=== PATIENT | female | born 1945 | race Hispanic/Latino ===

== ENCOUNTER 2016-06-13 12:51 | Emergency (ER) | payer MEDICARE, MEDICAID ==
--- NOTE | 2016-06-13 13:20 | C.PDOC ---
History Of Present Illness 70 y/o female presents to the ED complaining of anxiety and subjective tremors. She reports evaluated overnight at [facility] [place] for anxiety and states she had a Xanax at 10 am when she was discharged but no other medication since then. Patient notes that she lives at home with a home health attendant and usually takes Xanax 1 mg TID. She admits to inconsistent follow up with Dr. Topher Littlejohn. Patient also notes some loose stool for 20 years. Denies chest pain, shortness of breath, fever, abdominal pain, or other complaints. Time Seen by Provider: 06/13/16 13:08 Chief Complaint (Nursing): Anxiety History Per: Patient Onset/Duration Of Symptoms: Days, Persistent Current Symptoms Are (Timing): Still Present Suicide/Self Injury Attempted (Context): None Associated Symptoms: Anxiety Involuntary Hold By: None Recent travel outside of the [place]: No Past Medical History Reviewed: Historical Data, Nursing Documentation, Vital Signs Vital Signs: Last Vital Signs Temp 98 F 06/13/16 13:01 Pulse 95 H 06/13/16 13:01 Resp 16 06/13/16 13:01 BP 154/85 H 06/13/16 13:01 Pulse Ox 98 06/13/16 14:43 - Medical History PMH: Anxiety, HTN Surgical History: No Surg Hx Family History: States: Unknown Family Hx - Social History Hx Tobacco Use: No Hx Alcohol Use: No Hx Substance Use: No - Immunization History Hx Tetanus Toxoid Vaccination: No Hx Influenza Vaccination: No Hx Pneumococcal Vaccination: No Review Of Systems Except As Marked, All Systems Reviewed And Found Negative. Constitutional: Negative for: Fever Cardiovascular: Negative for: Chest Pain Respiratory: Negative for: Shortness of Breath Gastrointestinal: Positive for: Diarrhea. Negative for: Abdominal Pain Neurological: Positive for: Other (tremors) Psych: Positive for: Anxiety Physical Exam - Physical Exam Appears: Non-toxic, No Acute Distress, Other (anxious) Skin: Normal Color, Warm, Dry Head: Atraumatic, Normacephalic Eye(s): bilateral: Normal Inspection, PERRL Neck: Normal ROM Chest: Symmetrical Cardiovascular: Rhythm Regular Respiratory: Normal Breath Sounds, No Rales, No Rhonchi, No Wheezing Gastrointestinal/Abdominal: Normal Exam, Soft, No Tenderness, Other (obese; patel catheter in place) Back: Normal Inspection, No CVA Tenderness Extremity: Normal ROM Neurological/Psych: Oriented x3, Normal Speech, Normal Cognition ED Course And Treatment - Laboratory Results Result Diagrams: 06/13/16 13:54 06/13/16 13:54 Lab Interpretation: Normal (trop neg. MIld low K+) ECG: Interpreted By Me ECG Rhythm: Sinus Rhythm ECG Interpretation: Normal Rate From EC (bpm) O2 Sat by Pulse Oximetry: 98 (ra) Pulse Ox Interpretation: Normal - Radiology CXR: Interpreted by Me CXR Interpretation: Yes: No Acute Disease - Other Rad abd x 2 X-Ray: Interpreted by Me (+ increased stool/gas, no obst/FA) Progress Note: xanax PO Reevaluation Time: 14:40 Reassessment Condition: Improved - Physician Consult Information Outcome Of Conversation: 1345: d/w Dr. Topher Lopez- suspects inconsistent Xanax dosing, and asks to f/u in office on Thursday. 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 complete w/u @ [facility] [place] last night was neg too. consider changing xanax to Klonopin @ next visit. Medical Decision Making Medical Decision Making: anxiety, irritable bowel, poorly controlled DM lives alone, increased anxiety- has [employer] Plan: * EKG * X-Ray, Abdomen * Blood Work * Urinalysis * Xanax PO * Human Insulin Disposition Doctor Will See Patient In The: Office Counseled Patient/Family Regarding: Studies Performed, Diagnosis - Disposition Referrals: Topher Lopze MD [Staff Provider] - Disposition: HOME/ ROUTINE Disposition Time: 14:42 Condition: GOOD Additional Instructions: Follow-up w Dr. Lopez on Thursday- call for an appointment. Take your Xanax 1 mg THREE times a day as scheduled BRAT diet for your diarrhea; bananas, white rice, apples, and small amounts of bread. Instructions: Chronic Diarrhea (ED), Anxiety (ED) - Clinical Impression Clinical Impression: Anxiety, Diarrhea - Scribe Statement The provider has reviewed the documentation as recorded by the Scribe ([employer]) Provider Attestation: All medical record entries made by the Scribe were at my direction and personally dictated by me. I have reviewed the chart and agree that the record accurately reflects my personal performance of the history, physical exam, medical decision making, and the department course for this patient. I have also personally directed, reviewed, and agree with the discharge instructions and disposition.
[2016-06-13 14:00] LABS: BASO # 0.1 K/uL (0.0-0.2); BASO % 0.7 % (0.0-2.0); EOS % 0.3 % (0.0-4.0); HEMATOCRIT 42.4 % (34.0-47.0); LYMPH # 1.1 K/uL (1.0-4.3); LYMPH % 13.8 % (20.0-40.0); MEAN CELL VOLUME 90.3 fL (81.0-99.0); MEAN CORPUSCULAR HEMOGLOBIN 30.5 pg (27.0-31.0); MEAN CORPUSCULAR HGB CONC 33.8 g/dL (33.0-37.0); MEAN PLATELET VOLUME 8.1 fL (7.2-11.7); MONO # 0.6 K/uL (0.0-0.8); MONO % 7.4 % (0.0-10.0); NRBC % 0.1 % (0.0-2.0); RED CELL DISTRIBUTION WIDTH 12.6 % (11.5-14.5); WHITE BLOOD COUNT 8.1 K/uL (4.8-10.8)
[2016-06-13 14:08] LABS: RBC URINE 16 /hpf (0-3); URINE BACTERIA RARE (<OCC); URINE BILIRUBIN NEGATIVE (NEGATIVE); URINE BLOOD 1+ (NEGATIVE); URINE COLOR Straw (YELLOW); URINE GLUCOSE (UA) 3+ mg/dL (Normal); URINE KETONE NEGATIVE (NEGATIVE); URINE LEUKOCYTE ESTERASE 1+ Leu/uL (Negative); URINE PROTEIN 2+ mg/dL (NEGATIVE); URINE UROBILINOGEN NORMAL mg/dL (0.2-1.0); WBC URINE 17 /hpf (0-5)
[2016-06-13 14:11] LABS: CHLORIDE 95 mmol/L (98-107); SODIUM 136 mmol/L (132-148)
[2016-06-13 14:13] LABS: ALB/GLOB RATIO 0.9 (1.0-2.1); AST/SGOT 18 U/L (14-36); BILIRUBIN,TOTAL 0.3 mg/dL (0.2-1.3); CARBON DIOXIDE 27 mmol/L (22-30); GFR AFRICAN-AMERICAN > 60; TOTAL PROTEIN 7.3 g/dL (6.3-8.3)
[2016-06-13 14:14] LABS: ALKALINE PHOSPHATASE 90 U/L (38-126); ALT/SGPT 9 U/L (9-52); BLOOD UREA NITROGEN 7 mg/dL (7-17); CALCIUM 8.6 mg/dl (8.6-10.4); GLUCOSE,RANDOM 357 mg/dL (65-105)
[2016-06-13] MEDS ORDERED: (Novolin R) Insulin Human Regular 100 units/ml vial IV STA (14:39)
[2016-06-13] MEDS ORDERED: (Novolin R) Insulin Human Regular 100 units/ml vial ONE (14:49)
--- NOTE | 2016-06-13 16:57 | RAD ---
PROCEDURE: Radiographs of the chest and abdomen (obstructive series) HISTORY: crampy abd discomfort x 2 days COMPARISON: None available. FINDINGS: Examination limited by habitus. CHEST: Heart size appears top normal. No focal consolidation, significant pleural effusion, or definite pneumothorax identified.Please note that chest x-ray has limited sensitivity for the detection of pulmonary masses. ABDOMEN AND PELVIS: Right upper quadrant surgical clips. Nonspecific nonobstructive bowel gas pattern. No definite free air. Osseous demineralization. Degenerative changes. IMPRESSION: Right upper quadrant surgical clips.
[2016-06-13 17:44] VITALS: BP 172/82; PULSE 88; RESP 18; TEMP 97.1; O2SAT 100
--- NOTE | 2016-06-20 14:19 | CARD ---
APPROVED REPORT EKG Measurement Heart [id number] <Conclusion> Normal sinus rhythm Prolonged QT Abnormal ECG
== END 2016-06-13 17:42 | disposition home or self-care (01) ==
LOC: C.ER 12:51
DX: F41.9 Anxiety disorder, unspecified (principal); R19.7 Diarrhea, unspecified; I10 Essential (primary) hypertension

== ENCOUNTER 2016-09-16 10:35 | Observation (INO) | payer MEDICARE, MEDICAID ==
--- NOTE | 2016-09-16 11:14 | C.PDOC ---
History Of Present Illness 70-year-old female, PMHx includes Anxiety, Depression, Hypertension, and Hypercholesterolemia, presents to the emergency department with complaints of fall. patient states she was walking prior to arrival, when she had a mechanical fall, causing her to gall backward, hitting her head, Patient denies any loss of consciousness. Currently complaining of pain to right knee and right hip. States she is supposed to be on the water pill, but only takes half dose. Secondary complaint is urinary frequency, that is associated with foul- smelling urine. Denies chest pain or shortness of breath. No other complaints at this time, PMD Milan Armstrong MD. - HPI Time Seen by Provider: 09/16/16 10:55 Chief Complaint (Nursing): Trauma History Per: Patient History/Exam Limitations: no limitations Injury Occurred (Timing): Just Before Arrival Past Medical History Reviewed: Historical Data, Nursing Documentation, Vital Signs Vital Signs: Last Vital Signs Temp 98.2 F 09/16/16 10:50 Pulse 64 09/16/16 15:01 Resp 20 09/16/16 15:01 BP 169/67 H 09/16/16 15:01 Pulse Ox 100 09/16/16 15:01 - Medical History PMH: Anxiety, Depression, HTN, Hypercholesterolemia Family History: States: No Known Family Hx - Social History Hx Tobacco Use: No Hx Alcohol Use: No Hx Substance Use: No - Immunization History Hx Tetanus Toxoid Vaccination: No Hx Influenza Vaccination: No Hx Pneumococcal Vaccination: No Review Of Systems Except As Marked, All Systems Reviewed And Found Negative. Constitutional: Negative for: Fever, Chills Cardiovascular: Negative for: Chest Pain Respiratory: Negative for: Shortness of Breath Gastrointestinal: Negative for: Nausea, Vomiting Genitourinary: Positive for: Frequency. Negative for: Incontinence, Hematuria Musculoskeletal: Positive for: Leg Pain Neurological: Positive for: Headache. Negative for: Weakness, Numbness Physical Exam - Physical Exam Appears: Non-toxic, No Acute Distress, Other (Obese) Skin: Warm, Dry, No Rash Head: Atraumatic, Normacephalic Eye(s): bilateral: Normal Inspection, PERRL, EOMI Nose: Normal Oral Mucosa: Moist Lips: Normal Appearing Neck: Normal ROM Cardiovascular: Rhythm Regular, No Murmur Respiratory: Normal Breath Sounds, No Accessory Muscle Use Gastrointestinal/Abdominal: Soft, No Tenderness Extremity: Pedal Edema (B/L lower extremities. Non-pitting), Other (Tenderness to right knee. Right hip: FROM. ) Pulses: Left Dorsalis Pedis: Normal, Right Dorsalis Pedis: Normal ED Course And Treatment - Laboratory Results Result Diagrams: 09/16/16 12:19 09/16/16 13:05 O2 Sat by Pulse Oximetry: 96 - Other Rad XR HIP X-Ray: Viewed By Me, Read By Radiologist Interpretation: Accession No. : [id number]. Patient Name / ID : LUIZ WARNER / [id number]. Exam Date : 09/16/2016 11:15:00 ( Approved ). Study Comment : Sex / Age : F / 70Y. Creator : VANNESSA CAMARILLO MD. Dictator : VANNESSA CAMARILLO MD. Freelance Operator : Plastic Installer : VANNESSA CAMARILLO MD. Approver2 : Report Date : 12:20:06. My Comment : . PROCEDURE: Radiographs of the pelvis and right hip. HISTORY: fall r/o fx. COMPARISON: None. TECHNIQUE: Frontal projection of the pelvis and frog lateral projection of the right hip joint were obtained. FINDINGS: The pelvic ring is intact. There is no acute displaced fracture or bone destruction. There is diffuse bone demineralization. There is mild degenerative osteoarthrosis in the hip joints and sacroiliac joints. IMPRESSION: No acute displaced fracture or dislocation. Please note occult fractures cannot be excluded on plain radiographs. If there is a persistent clinical concern, an MRI of the hip may be performed for further evaluation. XR KNEE X-Ray: Viewed By Me, Read By Radiologist Interpretation: Accession No. : [id number]. Patient Name / ID : LUIZ WARNER / [id number]. Exam Date : 09/16/2016 11:14:40 ( Approved ). Study Comment : Sex / Age : F / 70Y. Creator : VANNESSA CAMARILLO MD. Dictator : VANNESSA CAMARILLO MD. Freelance Operator : Plastic Installer : VANNESSA CAMARILLO MD. Approver2 : Report Date : 11:52:03. My Comment : . PROCEDURE: Right Knee Radiographs. HISTORY: fall r/o fx. COMPARISON: None. FINDINGS: BONES: There is diffuse bone demineralization.There is no acute displaced fracture or bone destruction. Bone alignment is normal. JOINTS: There is severe tricompartmental degenerative osteoarthrosis with reduced joint spaces, chondrocalcinosis and marginal osteophytes, worse in the medial compartment. JOINT EFFUSION: There is a small suprapatellar joint effusion. OTHER FINDINGS: There atherosclerotic vascular calcifications. IMPRESSION: No acute displaced fracture or dislocation.Please note occult fractures cannot be excluded on plain radiographs. If there is a persistent clinical concern, an MRI of the hip may be performed for further evaluation. XR L SPINE X-Ray: Viewed By Me, Read By Radiologist Interpretation: Accession No. : [id number]. Patient Name / ID : LUIZ WARNER / [id number]. Exam Date : 09/16/2016 11:14:13 ( Approved ). Study Comment : Sex / Age : F / 70Y. Creator : VANNESSA CAMARILLO MD. Dictator : VANNESSA CAMARILLO MD. Freelance Operator : Plastic Installer : VANNESSA CAMARILLO MD. Approver2 : Report Date : 12:23:32. My Comment : . PROCEDURE: Radiographs of the Lumbar Spine. HISTORY: fall r/o fx. COMPARISON: No prior. FINDINGS: BONES: There is mild dextroscoliosis in the lumbar spine. There is normal alignment of the lumbar vertebral bodies. Lumbar lordosis is maintained. There is diffuse bone demineralization. There is no acute fracture or spondylolisthesis. DISC SPACES: There is multilevel degenerative disc disease with anterior osteophytes , reduced disc heights and multilevel facet arthropathy, worse at L5-S1. . OTHER FINDINGS: Surgical clips in the right upper quadrant are related to prior cholecystectomy. There are no pathologic soft tissue calcifications joints. There is mild degenerative osteoarthrosis in both sacroiliac. IMPRESSION: No acute fracture or spondylolisthesis. Multilevel degenerative disc disease, worse at L5-S1. - CT Scan/US CT HEAD Other Rad Studies (CT/US): Read By Radiologist, Radiology Report Reviewed CT/US Interpretation: Accession No. : [id number]. Patient Name / ID : LUIZ WARNER / [id number]. Exam Date : 09/16/2016 11:42:21 ( Approved ). Study Comment : Sex / Age : F / 70Y. Creator : VANNESSA CAMARILLO MD. Dictator : VANNESSA CAMARILLO MD. Freelance Operator : Plastic Installer : VANNESSA CAMARILLO MD. Approver2 : Report Date : 09/16/2016 12:11:12. My Comment : . PROCEDURE: CT HEAD WITHOUT CONTRAST. HISTORY: r/o CVA. COMPARISON: None available. TECHNIQUE: Axial computed tomography images were obtained through the head/brain without intravenous contrast. Radiation dose: Total exam DLP = 944.43 MGy-cm. This CT exam was performed using one or more of the following dose reduction techniques: Automated exposure control, adjustment of the mA and/or kV according to patient size, and/or use of iterative reconstruction technique. FINDINGS: HEMORRHAGE: No intracranial hemorrhage. BRAIN: There are severe chronic microangiopathic changes. There are old lacunar infarctions in the amado radiata. VENTRICLES: There is moderate age-related global parenchymal volume loss and proportionate enlargement of the ventricles and cortical sulci. CALVARIUM: There is no calvarial fracture or extracranial soft tissue swelling. PARANASAL SINUSES: Predominantly clear. MASTOID AIR CELLS: Predominantly clear. OTHER FINDINGS: None. IMPRESSION: No acute intracranial abnormality. If there is a persistent focal neurologic deficit and an ongoing clinical concern for acute infarction, an MRI of the brain without intravenous contrast would be a more sensitive modality for evaluation of hyperacute/acute ischemic infarction. Severe chronic microangiopathic changes and moderate age-related global parenchymal volume loss. Old lacunar infarctions in bilateral amado radiata. Medical Decision Making Medical Decision Making: Impression 70y/o F, comes in s/p fall w/ pain to back of head and urinary frequency w/ foul odor Diff Dx (includes but not limited to) Intracranial hemorrhage vs Fracture, UTI Plan: * CT Head * BMP, Mag * CBC * X-Ray: R Knee * X-Ray: Hip and LS Spine * Urinalysis * Reassess and Disposition Patient CT negative for ICH. UA positive for UTI and treated with Macrobid. Hypokalemia treated with PO potassium. Patient's xrays are negative for fx. Pain controlled. Patient was evaluated by PT with her walker and was not able to walk because knees. Discussed case with Dr. Gresham who will place her on Medicine under his service. Disposition Counseled Patient/Family Regarding: Studies Performed, Diagnosis - Disposition Disposition: HOSPITALIZED Disposition Time: 15:26 Condition: FAIR - POA Present On Arrival: None - Clinical Impression Clinical Impression: Head injury, Frequent falls, UTI (urinary tract infection), Hypokalemia - Scribe Statement The provider has reviewed the documentation as recorded by the Scribe (Maurice Cheung)
--- NOTE | 2016-09-16 11:53 | RAD ---
PROCEDURE: Right Knee Radiographs. HISTORY: fall r/o fx COMPARISON: None. FINDINGS: BONES: There is diffuse bone demineralization.There is no acute displaced fracture or bone destruction. Bone alignment is normal. JOINTS: There is severe tricompartmental degenerative osteoarthrosis with reduced joint spaces, chondrocalcinosis and marginal osteophytes, worse in the medial compartment. JOINT EFFUSION: There is a small suprapatellar joint effusion. OTHER FINDINGS: There atherosclerotic vascular calcifications. IMPRESSION: No acute displaced fracture or dislocation.Please note occult fractures cannot be excluded on plain radiographs. If there is a persistent clinical concern, an MRI of the hip may be performed for further evaluation.
--- NOTE | 2016-09-16 12:12 | CT ---
PROCEDURE: CT HEAD WITHOUT CONTRAST. HISTORY: r/o CVA COMPARISON: None available. TECHNIQUE: Axial computed tomography images were obtained through the head/brain without intravenous contrast. Radiation dose: Total exam DLP = 944.43 MGy-cm. This CT exam was performed using one or more of the following dose reduction techniques: Automated exposure control, adjustment of the mA and/or kV according to patient size, and/or use of iterative reconstruction technique. FINDINGS: HEMORRHAGE: No intracranial hemorrhage. BRAIN: There are severe chronic microangiopathic changes. There are old lacunar infarctions in the amado radiata. VENTRICLES: There is moderate age-related global parenchymal volume loss and proportionate enlargement of the ventricles and cortical sulci. CALVARIUM: There is no calvarial fracture or extracranial soft tissue swelling. PARANASAL SINUSES: Predominantly clear. MASTOID AIR CELLS: Predominantly clear. OTHER FINDINGS: None. IMPRESSION: No acute intracranial abnormality. If there is a persistent focal neurologic deficit and an ongoing clinical concern for acute infarction, an MRI of the brain without intravenous contrast would be a more sensitive modality for evaluation of hyperacute/acute ischemic infarction. Severe chronic microangiopathic changes and moderate age-related global parenchymal volume loss. Old lacunar infarctions in bilateral amado radiata.
--- NOTE | 2016-09-16 12:21 | RAD ---
PROCEDURE: Radiographs of the pelvis and right hip HISTORY: fall r/o fx COMPARISON: None TECHNIQUE: Frontal projection of the pelvis and frog lateral projection of the right hip joint were obtained. FINDINGS: The pelvic ring is intact. There is no acute displaced fracture or bone destruction. There is diffuse bone demineralization. There is mild degenerative osteoarthrosis in the hip joints and sacroiliac joints. IMPRESSION: No acute displaced fracture or dislocation. Please note occult fractures cannot be excluded on plain radiographs. If there is a persistent clinical concern, an MRI of the hip may be performed for further evaluation.
[2016-09-16 12:23] LABS: HEMATOCRIT 45.3 % (34.0-47.0); MEAN CELL VOLUME 90.6 fL (81.0-99.0); MEAN CORPUSCULAR HEMOGLOBIN 30.5 pg (27.0-31.0); MEAN CORPUSCULAR HGB CONC 33.7 g/dL (33.0-37.0); MEAN PLATELET VOLUME 8.3 fL (7.2-11.7); RED CELL DISTRIBUTION WIDTH 13.1 % (11.5-14.5)
--- NOTE | 2016-09-16 12:25 | RAD ---
PROCEDURE: Radiographs of the Lumbar Spine. HISTORY: fall r/o fx COMPARISON: No prior. FINDINGS: BONES: There is mild dextroscoliosis in the lumbar spine. There is normal alignment of the lumbar vertebral bodies. Lumbar lordosis is maintained. There is diffuse bone demineralization. There is no acute fracture or spondylolisthesis. DISC SPACES: There is multilevel degenerative disc disease with anterior osteophytes, reduced disc heights and multilevel facet arthropathy, worse at L5-S1. . OTHER FINDINGS: Surgical clips in the right upper quadrant are related to prior cholecystectomy. There are no pathologic soft tissue calcifications joints. There is mild degenerative osteoarthrosis in both sacroiliac. IMPRESSION: No acute fracture or spondylolisthesis. Multilevel degenerative disc disease, worse at L5-S1.
[2016-09-16 13:29] LABS: CHLORIDE 93 mmol/L (98-107); POTASSIUM 3.1 mmol/L (3.6-5.2); SODIUM 134 mmol/L (132-148)
[2016-09-16] MEDS ORDERED: Potassium Chloride 20 mEq ER Tab PO STA (13:30)
[2016-09-16 13:31] LABS: GFR AFRICAN-AMERICAN > 60
[2016-09-16 13:32] LABS: BLOOD UREA NITROGEN 17 mg/dL (7-17); CALCIUM 9.2 mg/dl (8.6-10.4); CARBON DIOXIDE 26 mmol/L (22-30); GLUCOSE,RANDOM 301 mg/dL (65-105); MAGNESIUM 1.8 mg/dL (1.6-2.3)
[2016-09-16 13:33] LABS: RBC URINE 3 /hpf (0-3); URINE BACTERIA FEW (<OCC); URINE BILIRUBIN NEGATIVE (NEGATIVE); URINE BLOOD 1+ (NEGATIVE); URINE COLOR Yellow (YELLOW); URINE GLUCOSE (UA) 3+ mg/dL (Normal); URINE KETONE NEGATIVE (NEGATIVE); URINE LEUKOCYTE ESTERASE 3+ Leu/uL (Negative); URINE PROTEIN 1+ mg/dL (NEGATIVE); URINE UROBILINOGEN NORMAL mg/dL (0.2-1.0); WBC URINE 20 /hpf (0-5)
[2016-09-16] MEDS ORDERED: Potassium Chloride 20 mEq ER Tab PO ONE (13:43)
[2016-09-16] MEDS ORDERED: (Novolin R) Insulin Human Regular 100 units/ml vial SC ONE (17:22)
[2016-09-16] MEDS ORDERED: (Novolin R) Insulin Human Regular 100 units/ml vial ONE (17:33)
[2016-09-16] MEDS ORDERED: Atropine-Diphenoxylate 0.025-2.5 mg Tab PO PRN (18:30)
[2016-09-16] MEDS: Ciprofloxacin 400mg/200ml D5W 400 MG/200 ML BAG IVPB SCH (19:00)
--- NOTE | 2016-09-16 20:25 | CP.PCM.HP ---
<Ami GilClinton - Last Filed: 09/16/16 20:46> History of Present Illness - History of Present Illness History of Present Illness: CC: s/p fall Patient is a 70 year old female with PMHx of anxiety, depression, htn, hld, IBS with diarrhea, DM, CAD who presents to the ED after she fell in her home. Patient woke up this morning, fed her cat, had some water and crackers and took her insulin. Patient uses a wheelchair to ambulate however the wheelchair does not fit in her bedroom so she must use a walker. After she took her insulin she used her walker to get over to her computer. She felt her legs get week and she feel backwards. Patient did not lose consciousness. Patient also says she took Lasix 40 mg PO for the first time this morning. Patient has a medical alert necklace which she used to call EMS. Patient did not feel dizzy at the time of fall. Now patient is anxious because she does not have someone to take care of her cat while she is in the hospital. She says she he has a headache at the back of her head where she fell that she rates a 5/10. Patient has some chest pain bilaterally that she says is worse with deep breathing. Patient admits to getting short of breath with movement. Patient sleeps on 4 pillows at night and admits to being short of breath at bedtime sometimes. Patient denies waking up due to shortness of breath. Patient is incontinent of urine. Patient says it often vaca when she urinates. She also complains of burning/ discomfort in groin. Patient has been feeling nauseous off and on since the ride in the ambulance with no episodes of vomiting. Patient has mild central abdominal pain. Patient admits to leg pain mostly behind her knees which she rates a 6/10 and describes as cramping. She also has swelling in her legs which she says has been there for years. Patient admits to back pain between the shoulder blades that she rates as a 6/10. Patient complains of numbness and tingling in hands and fingers which has been going on for a long time and also says her middle finger on the right often locks. Patient denies dizziness, sore throat, palpitations, cough, diarrhea, constipation. PMD: Dr. Nathaniel Yates, Dr. Sahu (psych), Dr. 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 3 stents placed - 2 at one time and 1 placed about 1 year ago Famhx: mom of rheumatic heart disease Sochx: stopped smoking tobacco 20 years ago, used to drink socially, but has not at all in 4 years, no drugs lives in senior citizen home on disability for psychiatric issues, had a suicide attempt in 1971, no suicide attempts since Present on Admission - Present on Admission Any Indicators Present on Admission: Yes History of DVT/PE: No History of Uncontrolled Diabetes: Yes Urinary Catheter: No Decubitus Ulcer Present: No Review of Systems - Constitutional Constitutional: Frequent Falls, Weakness. absent: Chills, Fever, Night Sweats - EENT Eyes: absent: Blurred Vision, Change in Vision, Diplopia Ears: absent: Decreased Hearing Nose/Mouth/Throat: absent: Nasal Congestion, Sore Throat - Cardiovascular Cardiovascular: Chest Pain, Claudication, Dyspnea on Exertion, Orthopnea, Pedal Edema. absent: Palpitations - Respiratory Respiratory: Dyspnea on Exertion, Pain on Inspiration. absent: Chest Congestion - Gastrointestinal Gastrointestinal: Abdominal Pain. absent: Constipation, Diarrhea - Genitourinary Additional comments: incontinent of urine - Musculoskeletal Musculoskeletal: Muscle Cramps, Muscle Weakness, Tingling - Integumentary Integumentary: absent: Bleeding Lesions, Change in Pigmentation - Neurological Neurological: Weakness. absent: Behavioral Changes, Confusion - Psychiatric Psychiatric: Anxiety. absent: Homicidal Ideation, Hopelessness - Endocrine Endocrine: absent: Change in Body Appearance, Excessive Sweating - Hematologic/Lymphatic Hematologic: absent: Easy Bleeding, Easy Bruising Past Patient History - Infectious Disease Hx of Infectious Diseases: None - Past Social History Smoking Status: Never Smoked - CARDIAC Hx Hypercholesterolemia: Yes Hx Hypertension: Yes - ENDOCRINE/METABOLIC Hx Diabetes Mellitus Type 1: Yes - PSYCHIATRIC Hx Anxiety: Yes Hx Depression: Yes Hx Substance Use: No - SURGICAL HISTORY Hx Surgeries: Yes Other/Comment: 2 cardiac stents - ANESTHESIA Hx Anesthesia: Yes Hx Anesthesia Reactions: No Meds Allergies/Adverse Reactions: Allergies Allergy/AdvReac Type Severity Reaction Status Date / Time Penicillins Allergy Verified 06/13/16 13:01 Physical Exam - Constitutional Appears: Non-toxic, No Acute Distress - Head Exam Head Exam: ATRAUMATIC, NORMAL INSPECTION, NORMOCEPHALIC - Eye Exam Eye Exam: EOMI, Normal appearance, PERRL Pupil Exam: NORMAL ACCOMODATION, PERRL - ENT Exam ENT Exam: Mucous Membranes Moist, Normal Exam - Neck Exam Neck exam: Positive for: Normal Inspection - Respiratory Exam Respiratory Exam: Clear to Auscultation Bilateral, NORMAL BREATHING PATTERN. absent: Rales, Rhonchi, Wheezes, Respiratory Distress, Stridor - Cardiovascular Exam Cardiovascular Exam: REGULAR RHYTHM, RRR. absent: Gallop, Rubs, Systolic Murmur - GI/Abdominal Exam GI & Abdominal Exam: Normal Bowel Sounds. absent: Distended, Firm, Guarding, Tenderness - Extremities Exam Extremities exam: Positive for: pedal edema, tenderness Additional comments: bilateral LE edema - Back Exam Back exam: NORMAL INSPECTION. absent: rash noted - Neurological Exam Neurological exam: Alert, Oriented x3 - Psychiatric Exam Psychiatric exam: Anxious, Normal Affect - Skin Skin Exam: Intact, Normal Color, Warm Additional comments: scratches on her legs b/l from scratching herself due to itching Results - Vital Signs Recent Vital Signs: Last Vital Signs Temp 98.3 F 09/16/16 16:04 Pulse 68 09/16/16 17:16 Resp 18 09/16/16 17:16 BP 176/69 H 09/16/16 17:16 Pulse Ox 97 09/16/16 17:16 - Labs Result Diagrams: 09/16/16 12:19 09/16/16 13:05 Labs: Laboratory Results - last 24 hr 09/16/16 09/16/16 09/16/16 17:25 18:15 18:34 POC Glucose (mg/dL) 374 H 426 H* Total Creatine Kinase 59 CK-MB (Mass) 1.15 Troponin I, Quant < 0.0120 Assessment & Plan - Assessment and Plan (Free Text) Assessment: 1. Mechanical Fall orthostatic check negative: laying flat: BP 183/90 HR 68, sitting up: BP 172/93 HR 64 monitor bp 2. UTI positive urinalysis in ED Macrobid given in ED Ciprofloxain 400 IV BID f/u U/C 3. Chest Pain First [place]etsy (-) f/u ROMIs and EKG x 2 4. Lower Extremity Edema f/u Echo 5. Hypokalemia 3.1 in ED, 40 Kdur given f/u cmp 6. Uncontrolled DM HgA1C ISS (high scale) Neurontin 100 mg PO TID Metformin 500 mg PO BID Sitagliptin 100 mg PO daily Novolog 10 unit SC AC Levemir 10 unit SC BID accuchecks 7. HTN Losartan 100 mg PO daily 8. Depression/ anxiety Xanax 1 mg PO TID PRN Prozac 40 mg PO daily Trazodone 50 mg PO HS 9. hx stents plavix 75 mg PO daily 10. IBS with diarrhea Lamotil 1 tab po BID PRN 11. Groin Burning/Discomfort Clotrimazole cream - apply BID 12. Prophylactic Pepcid 20 mg PO BID Plavix 75 mg PO daily diabetic diet <Jovany Cohen - Last Filed: 10/28/16 11:34> Results - Vital Signs Recent Vital Signs: Last Vital Signs Temp 98.8 F 09/19/16 15:00 Pulse 83 09/19/16 15:00 Resp 20 09/19/16 15:00 BP 161/83 H 09/19/16 15:00 Pulse Ox 95 09/19/16 15:00 - Labs Result Diagrams: 09/19/16 08:25 09/19/16 08:25 Attending/Attestation - Attestation I have personally seen and examined this patient.: Yes I have fully participated in the care of the patient.: Yes I have reviewed all pertinent clinical information: Yes Notes (Text): 1. Mechanical Fall 2. UTI
[2016-09-16] MEDS: (Novolin R) Insulin Human Regular 100 units/ml vial SC SCH (21:22)
[2016-09-16] MEDS ORDERED: Rosuvastatin Calcium 2.5 mg Tab PO SCH (22:00)
[2016-09-16] MEDS: Insulin Detemir 100 units/ml Vial (Levemir) SC SCH (22:27)
[2016-09-17 00:58] LABS: CHLORIDE 93 mmol/L (98-107)
[2016-09-17 00:59] LABS: POTASSIUM 3.2 mmol/L (3.6-5.2); SODIUM 133 mmol/L (132-148)
[2016-09-17 01:01] LABS: GFR AFRICAN-AMERICAN > 60
[2016-09-17 01:02] LABS: BLOOD UREA NITROGEN 20 mg/dL (7-17); CALCIUM 8.4 mg/dl (8.6-10.4); CARBON DIOXIDE 28 mmol/L (22-30); GLUCOSE,RANDOM 284 mg/dL (65-105)
[2016-09-17] MEDS ORDERED: Potassium Chloride 20 mEq ER Tab PO STA (02:11)
[2016-09-17] MEDS: Ciprofloxacin 400mg/200ml D5W 400 MG/200 ML BAG IVPB SCH ×2 (05:13→17:45)
[2016-09-17] MEDS: (Novolin R) Insulin Human Regular 100 units/ml vial SC SCH ×4 (08:04→21:18)
[2016-09-17] MEDS: (Novolog) Insulin Aspart, Recombinant 100 u/ml 10 ml vial SC SCH ×3 (08:05→17:47)
[2016-09-17 08:17] LABS: BASO # 0.1 K/uL (0.0-0.2); BASO % 1.3 % (0.0-2.0); EOS # 0.1 K/uL (0.0-0.7); EOS % 2.5 % (0.0-4.0); HEMATOCRIT 40.9 % (34.0-47.0); LYMPH # 1.4 K/uL (1.0-4.3); LYMPH % 23.9 % (20.0-40.0); MEAN CELL VOLUME 91.6 fL (81.0-99.0); MEAN CORPUSCULAR HEMOGLOBIN 30.6 pg (27.0-31.0); MEAN CORPUSCULAR HGB CONC 33.4 g/dL (33.0-37.0); MEAN PLATELET VOLUME 8.8 fL (7.2-11.7); MONO # 0.6 K/uL (0.0-0.8); MONO % 9.5 % (0.0-10.0); RED CELL DISTRIBUTION WIDTH 13.2 % (11.5-14.5)
[2016-09-17 08:35] LABS: CHLORIDE 95 mmol/L (98-107); POTASSIUM 3.5 mmol/L (3.6-5.2); SODIUM 136 mmol/L (132-148)
[2016-09-17 08:37] LABS: ALB/GLOB RATIO 0.9 (1.0-2.1); ALKALINE PHOSPHATASE 85 U/L (38-126); ALT/SGPT 25 U/L (9-52); AST/SGOT 19 U/L (14-36); BILIRUBIN,TOTAL 0.6 mg/dL (0.2-1.3); BLOOD UREA NITROGEN 18 mg/dL (7-17); CARBON DIOXIDE 28 mmol/L (22-30); GFR AFRICAN-AMERICAN > 60; TOTAL PROTEIN 6.7 g/dL (6.3-8.3)
[2016-09-17 08:38] LABS: CALCIUM 8.4 mg/dl (8.6-10.4); GLUCOSE,RANDOM 271 mg/dL (65-105); MAGNESIUM 1.8 mg/dL (1.6-2.3); PHOSPHOROUS 3.7 mg/dL (2.5-4.5)
[2016-09-17] MEDS: Insulin Detemir 100 units/ml Vial (Levemir) SC SCH ×2 (09:10→21:17)
[2016-09-17] MEDS: Clotrimazole 1% Cream(30 gm) TOP SCH ×2 (09:11→17:52)
[2016-09-17] MEDS ORDERED: Potassium Chloride 20 mEq ER Tab PO SCH (12:00)
[2016-09-17] MEDS ORDERED: Potassium Chloride 20 mEq ER Tab PO ONE (14:00)
--- NOTE | 2016-09-17 16:24 | CP.PCM.CON ---
History of Present Illness - History of Present Illness History of Present Illness: Palliative consult Requested by Elbert CAMARA Reason: goals of care and emotional support Patient is 70 yo lady admitted from her Senior Citizen apartment where she fail. Patient reports using a WC which does not feet trough her bedroom door, and she needed to use a walker. The fall happened after her breakfast and Insulin dose. Patient also took lasix 40 mg PO for the first time for her LEs edema. Patient denies loosing consciousness or hitting her head on the furniture. She fail backwards and used her Medical Alert necklace to call EMS. Upon admission the series of x Rays were negative for Fxs and CT head was also negative for acute findings. Patient was found with blood sugar of 426 and very poor glicemic control confirmed by HbA1C of 12.4. Cipro IV started for redness of LEs, most likely cellulites. PMH: anxiety, depression, HTN, DM, HDL, CAD, SHAMIR in 2007, Left foot 2nd and 3rd toe amputation, suicidal attempt in 1971 Soc. Hx: lives alone in Senior Citizen building, has a cat and is very attached to it, reports no family members Fam. Hx: patient denies knowledge of it, parents are Review of Systems - Review of Systems All systems: reviewed and no additional remarkable complaints except - Constitutional Constitutional: Frequent Falls - EENT Eyes: Change in Vision Ears: absent: As Per HPI, Decreased Hearing, Ear Discharge, Ear Pain, Tinnitus, Abnormal Hearing, Disequilibrium, Dizziness, Other Nose/Mouth/Throat: absent: As Per HPI, Epistaxis, Nasal Congestion, Nasal Discharge, Nasal Obstruction, Nasal Trauma, Nose Pain, Post Nasal Drip, Sinus Pain, Sinus Pressure, Bleeding Gums, Change in Voice, Dental Pain, Dry Mouth, Dysphagia, Halitosis, Hoarsness, Lip Swelling, Mouth Lesions, Mouth Pain, Odynophagia, Sore Throat, Throat Swelling, Tongue Swelling, Facial Pain, Neck Pain, Neck Mass, Other - Breasts Breasts: absent: As Per HPI, Change in Shape, Mass, Pain, Nipple Discharge, Nipple Inversion, Skin Changes, Swelling, Other - Cardiovascular Cardiovascular: Dyspnea, Dyspnea on Exertion, Leg Edema, Pedal Edema - Respiratory Respiratory: Dyspnea on Exertion - Gastrointestinal Gastrointestinal: absent: As Per HPI, Abdominal Pain, Belching, Bloating, Change in Bowel Habits, Change in Stool Character, Coffee Ground Emesis, Constipation, Cramping, Diarrhea, Dyspepsia, Dysphagia, Early Satiety, Excessive Flatus, Fecal Incontinence, Heartburn, Hematemesis, Hematochezia, Loose Stools, Melena, Nausea, Odynophagia, Temesmus, Vomiting, Other - Genitourinary Genitourinary: Urinary Incontinence - Reproductive: Female Reproductive:Female: Post Menopausal - Menstruation Menstruation: Post Menopausal - Musculoskeletal Musculoskeletal: Abnormal Gait, Deformity, Limited Range of Motion, Muscle Weakness, Tingling - Integumentary Integumentary: Pruritus, Swelling - Neurological Neurological: Weakness - Psychiatric Psychiatric: Anxiety, Depression - Endocrine Endocrine: Polyuria - Hematologic/Lymphatic Hematologic: absent: As Per HPI, Easy Bleeding, Easy Bruising, Lymphadenopathy, Other Past Patient History - Infectious Disease Hx of Infectious Diseases: None - Past Social History Smoking Status: Never Smoked - CARDIAC Hx Cardiac Disorders: Yes (CAD) Hx Hypercholesterolemia: Yes Hx Hypertension: Yes - ENDOCRINE/METABOLIC Hx Diabetes Mellitus Type 1: Yes - MUSCULOSKELETAL/RHEUMATOLOGICAL Hx Falls: No - PSYCHIATRIC Hx Anxiety: Yes Hx Depression: Yes Hx Substance Use: No - SURGICAL HISTORY Hx Surgeries: Yes Other/Comment: 2 cardiac stents - ANESTHESIA Hx Anesthesia: Yes Hx Anesthesia Reactions: No Meds Home Medications: Home Medication List Medication Instructions Recorded Confirmed Type Home Med 300 mg PO DAILY #5 ea 09/17/16 Rx Allergies/Adverse Reactions: Allergies Allergy/AdvReac Type Severity Reaction Status Date / Time Penicillins Allergy Verified 06/13/16 13:01 - Medications Medications: Current Medications Alprazolam (Xanax) 1 mg PO TID PRN PRN Reason: Anxiety Last Admin: 09/17/16 00:09 Dose: 1 mg Clopidogrel Bisulfate (Plavix) 75 mg PO DAILY [facility] Last Admin: 09/17/16 12:03 Dose: 75 mg Clotrimazole (Lotrimin 1%) 60 gm TOP BID [facility] Last Admin: 09/17/16 09:11 Dose: 1 applic Diphenoxylate HCl/Atropine (Lomotil 0.025-2.5 Mg Tablet) 1 tab PO BID PRN PRN Reason: Diarrhea Famotidine (Pepcid) 20 mg PO BID [facility] Last Admin: 09/17/16 09:11 Dose: 20 mg Fluoxetine HCl (Prozac) 40 mg PO DAILY [facility] Last Admin: 09/17/16 09:12 Dose: 40 mg Gabapentin (Neurontin) 100 mg PO TID [facility] Last Admin: 09/17/16 13:47 Dose: 100 mg Heparin Sodium (Porcine) (Heparin) 5,000 units SC Q8 [facility] Home Med (Home Med) 300 unit PO DAILY [facility] Ciprofloxacin (Cipro 400mg/200ml Dsw) 400 mg in 200 mls @ 133 mls/hr IVPB Q12H [facility] Last Admin: 09/17/16 05:13 Dose: 133 mls/hr Insulin Aspart (Novolog) 10 unit SC TIDAC [facility] Insulin Detemir (Levemir) 10 unit SC Q12 [facility] Insulin Human Regular (Novolin R) 0 unit SC ACHS [facility] PRN Reason: Protocol Last Admin: 09/17/16 12:11 Dose: 6 unit Losartan Potassium (Cozaar) 100 mg PO DAILY [facility] Last Admin: 09/17/16 09:11 Dose: 100 mg Metformin HCl (Glucophage) 500 mg PO BID [facility] Last Admin: 09/17/16 09:12 Dose: 500 mg Pneumococcal Polyvalent Vaccine (Pneumovax 23 Vaccine) 0.5 ml IM .ONCE ONE Stop: 09/18/16 10:01 Rosuvastatin Calcium (Crestor) 2.5 mg PO [facility] Last Admin: 09/16/16 22:26 Dose: 2.5 mg Saccharomyces Boulardii (Florastor) 250 mg PO BID [facility] Sitagliptin Phosphate (Januvia) 100 mg PO DAILY [facility] Last Admin: 09/17/16 12:03 Dose: 100 mg Trazodone HCl (Desyrel) 50 mg PO [facility] Last Admin: 09/16/16 22:26 Dose: 50 mg Physical Exam - Constitutional Appears: Chronically Ill - Head Exam Head Exam: ATRAUMATIC, NORMAL INSPECTION, NORMOCEPHALIC - Eye Exam Eye Exam: EOMI, Normal appearance, PERRL Pupil Exam: NORMAL ACCOMODATION, PERRL - ENT Exam ENT Exam: Mucous Membranes Moist, Normal Exam - Neck Exam Neck exam: Positive for: Normal Inspection - Respiratory Exam Respiratory Exam: Decreased Breath Sounds, NORMAL BREATHING PATTERN - Cardiovascular Exam Cardiovascular Exam: REGULAR RHYTHM, +S1, +S2 - GI/Abdominal Exam GI & Abdominal Exam: Diminished Bowel Sounds, Soft - Rectal Exam Rectal Exam: Deferred - Extremities Exam Extremities exam: Positive for: calf tenderness, pedal edema - Back Exam Back exam: NORMAL INSPECTION - Neurological Exam Neurological exam: Alert, Oriented x3 - Psychiatric Exam Psychiatric exam: Anxious, Normal Affect, Normal Mood - Skin Skin Exam: Erythema, Intact, Normal Color, Warm Results - Vital Signs Recent Vital Signs: Last Vital Signs Temp 98.1 F 09/17/16 08:04 Pulse 75 09/17/16 15:19 Resp 20 09/17/16 08:04 BP 173/70 H 09/17/16 15:19 Pulse Ox 95 09/17/16 15:19 - Labs Result Diagrams: 09/17/16 08:04 09/17/16 08:04 Labs: Laboratory Results - last 24 hr 09/16/16 09/16/16 09/16/16 17:25 18:15 18:34 WBC RBC Hgb Hct MCV MCH MCHC RDW Plt Count MPV Neut % (Auto) Lymph % (Auto) [place] % (Auto) Eos % (Auto) Baso % (Auto) Neut # Lymph # [place] # Eos # Baso # Sodium Potassium Chloride Carbon Dioxide Anion Gap BUN Creatinine Est GFR ( Amer) Est GFR (Non-Af Amer) POC Glucose (mg/dL) 374 H 426 H* Random Glucose Hemoglobin A1c Calcium Phosphorus Magnesium Total Bilirubin AST ALT Alkaline Phosphatase Total Creatine Kinase 59 CK-MB (Mass) 1.15 Troponin I, Quant < 0.0120 Total Protein Albumin Globulin Albumin/Globulin Ratio 09/16/16 09/16/16 09/17/16 21:08 21:18 00:46 WBC RBC Hgb Hct MCV MCH MCHC RDW Plt Count MPV Neut % (Auto) Lymph % (Auto) [place] % (Auto) Eos % (Auto) Baso % (Auto) Neut # Lymph # [place] # Eos # Baso # Sodium 133 Potassium 3.2 L Chloride 93 L Carbon Dioxide 28 Anion Gap 15 BUN 20 H Creatinine 1.0 Est GFR ( Amer) > 60 Est GFR (Non-Af Amer) 55 POC Glucose (mg/dL) 420 H* 444 H* Random Glucose 284 H Hemoglobin A1c Calcium 8.4 L Phosphorus Magnesium Total Bilirubin AST ALT Alkaline Phosphatase Total Creatine Kinase 50 CK-MB (Mass) 0.80 Troponin I, Quant < 0.0120 Total Protein Albumin Globulin Albumin/Globulin Ratio 09/17/16 09/17/16 09/17/16 07:12 08:04 08:04 WBC 6.0 RBC 4.47 Hgb 13.7 Hct 40.9 MCV 91.6 MCH 30.6 MCHC 33.4 RDW 13.2 Plt Count 266 MPV 8.8 Neut % (Auto) 62.8 Lymph % (Auto) 23.9 [place] % (Auto) 9.5 Eos % (Auto) 2.5 Baso % (Auto) 1.3 Neut # 3.8 Lymph # 1.4 [place] # 0.6 Eos # 0.1 Baso # 0.1 Sodium 136 Potassium 3.5 L Chloride 95 L Carbon Dioxide 28 Anion Gap 17 BUN 18 H Creatinine 0.9 Est GFR ( Amer) > 60 Est GFR (Non-Af Amer) > 60 POC Glucose (mg/dL) 291 H Random Glucose 271 H Hemoglobin A1c Calcium 8.4 L Phosphorus 3.7 Magnesium 1.8 Total Bilirubin 0.6 AST 19 ALT 25 Alkaline Phosphatase 85 Total Creatine Kinase CK-MB (Mass) Troponin I, Quant Total Protein 6.7 Albumin 3.2 L Globulin 3.5 Albumin/Globulin Ratio 0.9 L 09/17/16 09/17/16 09/17/16 08:04 08:04 11:28 WBC RBC Hgb Hct MCV MCH MCHC RDW Plt Count MPV Neut % (Auto) Lymph % (Auto) [place] % (Auto) Eos % (Auto) Baso % (Auto) Neut # Lymph # [place] # Eos # Baso # Sodium Potassium Chloride Carbon Dioxide Anion Gap BUN Creatinine Est GFR ( Amer) Est GFR (Non-Af Amer) POC Glucose (mg/dL) 286 H Random Glucose Hemoglobin A1c 12.4 H Calcium Phosphorus Magnesium Total Bilirubin AST ALT Alkaline Phosphatase Total Creatine Kinase 46 CK-MB (Mass) 0.80 Troponin I, Quant < 0.0120 Total Protein Albumin Globulin Albumin/Globulin Ratio Assessment & Plan - Assessment and Plan (Free Text) Assessment: Palliative consult Code status Full Code, there is no Advance directive on chart, PPS 40% I reviewed medical records, all diagnostic studies, examined and interviewed patient in the bed. Patient is alert, oriented X 3, looking much older than stated age. Patient is not any acute distress but looks chronically ill. Patient is edentulous with significant hair loss. Breath sounds are clear, patient reports dyspnea on excertion. Abdomen is soft with active bowel sounds, denies constipation. Incontinent of urine. Denies sensation of passing urine. Complains of burning sensation to perineal area, skin there intact. LEs are swollen, red and worm to touch, left foot two toes amputated. Cipro IV on board. PEDAL pulses present but very distant due to edema. Patient worked with PT today and was able to sit at the age of the bed. She felt like her socks were sliding and was not able to ambulate. patient is also very concerned about her cat that she left home . By the end of the day patient was able to get in touch ith some one from her building who would ry to get to the apartment. Patient reports feeling calmer now when she knew the cat was safe. Patient also misses her computer as she " can not live without it". We discussed goals of care. Patient wishes she could return home rather than go to [facility] [place]. At home she has a home economics teacher and the visiting nurse. if she goes to [facility] she would have to give away a cat and that would break her heart as she stated it. We discussed possibilities of home PT and PO antibiotics what made her happy. I educated patient on Blood sugar control and appropriate diet. Impression * Patient is not in acute distress, but looks much older than stated age, most likely due to poorly controlled Diabetes * Redness and swelling of LEs resembling cellulitis and poor perfusion * Limited ROM to LEs * Unsteady gait * urinary incontinence; at risk for skin breakdown * Separation anxiety; misses her cat * Prefers to return home as opposed to [facility] Suggestion * Would consider switching patient to PO Cipro if possible and discharge her home with home PT * I am concerned that if patient separates from her cat , it will affect her mental well being. Patient has a home economics teacher 6X a week and a visiting nurse * Reinforce education on blood sugar control upon discharge Thank you very much for consulting Palliative Care
--- NOTE | 2016-09-17 17:30 | CP.PCM.CON ---
History of Present Illness - History of Present Illness History of Present Illness: CC: syncope hx of CAD stenting x 2 last year HPI: Ms Ginna Alonso 70-year-old female with past medical history significant for hypertension dyslipidemia coronary artery disease status post stenting 2 that was done last year [facility] after she had an episode of fall. The event happened after for which he presented to [facility] and subsequently was noted to have severe blockages where she will be underwent stenting. On this admission she was having breakfast and then subsequently walked over at which time she was trying to pull her chair to sit on the computer when she had a syncopal episode she fell back and hit her head and lost consciousness. At baseline she has limited activity she can walk around her apartment with the help of a wheelchair. She has not seen her rehabilitation tech for the last few years secondary to issues with transportation. According to the patient she has been compliant with her medications. 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 According to the patient her diet has been fairlly stable. Review of Systems - Review of Systems All systems: reviewed and no additional remarkable complaints except - Constitutional Constitutional: As Per HPI, Fatigue, Lethargy - EENT Eyes: As Per HPI Ears: As Per HPI Nose/Mouth/Throat: As Per HPI - Cardiovascular Cardiovascular: Lightheadedness, Orthopnea, Paroxysmal Nocturnal Dyspnea, Pedal Edema - Respiratory Respiratory: As Per HPI - Gastrointestinal Gastrointestinal: Diarrhea - Genitourinary Genitourinary: Urinary Incontinence, Urinary Urgency - Musculoskeletal Musculoskeletal: Arthralgias, Muscle Weakness - Integumentary Integumentary: As Per HPI - Neurological Neurological: As Per HPI, Syncope - Psychiatric Psychiatric: Depression - Endocrine Endocrine: As Per HPI - Hematologic/Lymphatic Hematologic: As Per HPI Past Patient History - Infectious Disease Hx of Infectious Diseases: None - Past Medical History & Family History Past Medical History?: Yes Past Family History: Reviewed and not pertinent Pertinent Family History: Mom of rheumatic heart disease - Past Social History Smoking Status: Never Smoked Alcohol: Occasional - CARDIAC Hx Cardiac Disorders: Yes (CAD) Hx Hypercholesterolemia: Yes Hx Hypertension: Yes - ENDOCRINE/METABOLIC Hx Diabetes Mellitus Type 2: Yes - MUSCULOSKELETAL/RHEUMATOLOGICAL Hx Falls: No - GENITOURINARY/GYNECOLOGICAL Hx Uterine Cancer: Yes (hysterectomy 2007) - PSYCHIATRIC Hx Anxiety: Yes Hx Depression: Yes Hx Substance Use: No - SURGICAL HISTORY Hx Surgeries: Yes Hx Cholecystectomy: Yes (1975) Hx Coronary Stent: Yes Hx Hysterectomy: Yes Other/Comment: 2 cardiac stents - ANESTHESIA Hx Anesthesia: Yes Hx Anesthesia Reactions: No Meds Home Medications: Home Medication List Medication Instructions Recorded Confirmed Type Home Med 300 mg PO DAILY #5 ea 09/17/16 Rx Allergies/Adverse Reactions: Allergies Allergy/AdvReac Type Severity Reaction Status Date / Time Penicillins Allergy Verified 06/13/16 13:01 - Medications Medications: Current Medications Alprazolam (Xanax) 1 mg PO TID PRN PRN Reason: Anxiety Last Admin: 09/17/16 00:09 Dose: 1 mg Clopidogrel Bisulfate (Plavix) 75 mg PO DAILY [facility] Last Admin: 09/17/16 12:03 Dose: 75 mg Clotrimazole (Lotrimin 1%) 60 gm TOP BID [facility] Last Admin: 09/17/16 09:11 Dose: 1 applic Diphenoxylate HCl/Atropine (Lomotil 0.025-2.5 Mg Tablet) 1 tab PO BID PRN PRN Reason: Diarrhea Famotidine (Pepcid) 20 mg PO BID [facility] Last Admin: 09/17/16 09:11 Dose: 20 mg Fluoxetine HCl (Prozac) 40 mg PO DAILY [facility] Last Admin: 09/17/16 09:12 Dose: 40 mg Gabapentin (Neurontin) 100 mg PO TID [facility] Last Admin: 09/17/16 13:47 Dose: 100 mg Heparin Sodium (Porcine) (Heparin) 5,000 units SC Q8H [facility] Home Med (Home Med) 300 unit PO DAILY [facility] Ciprofloxacin (Cipro 400mg/200ml Dsw) 400 mg in 200 mls @ 133 mls/hr IVPB Q12H [facility] Last Admin: 09/17/16 05:13 Dose: 133 mls/hr Insulin Aspart (Novolog) 10 unit SC TIDAC [facility] Insulin Detemir (Levemir) 10 unit SC Q12 [facility] Insulin Human Regular (Novolin R) 0 unit SC ACHS [facility] PRN Reason: Protocol Last Admin: 09/17/16 12:11 Dose: 6 unit Losartan Potassium (Cozaar) 100 mg PO DAILY [facility] Last Admin: 09/17/16 09:11 Dose: 100 mg Metformin HCl (Glucophage) 500 mg PO BID [facility] Last Admin: 09/17/16 09:12 Dose: 500 mg Pneumococcal Polyvalent Vaccine (Pneumovax 23 Vaccine) 0.5 ml IM .ONCE ONE Stop: 09/18/16 10:01 Rosuvastatin Calcium (Crestor) 2.5 mg PO [facility] Last Admin: 09/16/16 22:26 Dose: 2.5 mg Saccharomyces Boulardii (Florastor) 250 mg PO BID [facility] Sitagliptin Phosphate (Januvia) 100 mg PO DAILY [facility] Last Admin: 09/17/16 12:03 Dose: 100 mg Trazodone HCl (Desyrel) 50 mg PO [facility] Last Admin: 09/16/16 22:26 Dose: 50 mg Physical Exam - Constitutional Appears: Well - Head Exam Head Exam: ATRAUMATIC, NORMAL INSPECTION, NORMOCEPHALIC - Eye Exam Eye Exam: EOMI, Normal appearance, PERRL Pupil Exam: NORMAL ACCOMODATION, PERRL - ENT Exam ENT Exam: Mucous Membranes Dry, Mucous Membranes Moist, Normal Exam - Neck Exam Neck exam: Positive for: Normal Inspection - Respiratory Exam Respiratory Exam: Clear to Auscultation Bilateral, NORMAL BREATHING PATTERN - Cardiovascular Exam Cardiovascular Exam: REGULAR RHYTHM, RRR, +S1, +S2, Systolic Murmur - GI/Abdominal Exam GI & Abdominal Exam: Normal Bowel Sounds, Soft. absent: Tenderness - Rectal Exam Rectal Exam: Deferred - Psychiatric Exam Psychiatric exam: Normal Affect, Normal Mood - Skin Skin Exam: Dry, Intact, Normal Color, Warm Results - Vital Signs Recent Vital Signs: Last Vital Signs Temp 98.1 F 09/17/16 08:04 Pulse 75 09/17/16 15:19 Resp 20 09/17/16 08:04 BP 173/70 H 09/17/16 15:19 Pulse Ox 95 09/17/16 15:19 - Labs Result Diagrams: 09/17/16 08:04 09/17/16 08:04 Labs: Laboratory Results - last 24 hr 09/16/16 09/16/16 09/16/16 17:25 18:15 18:34 WBC RBC Hgb Hct MCV MCH MCHC RDW Plt Count MPV Neut % (Auto) Lymph % (Auto) [place] % (Auto) Eos % (Auto) Baso % (Auto) Neut # Lymph # [place] # Eos # Baso # Sodium Potassium Chloride Carbon Dioxide Anion Gap BUN Creatinine Est GFR ( Amer) Est GFR (Non-Af Amer) POC Glucose (mg/dL) 374 H 426 H* Random Glucose Hemoglobin A1c Calcium Phosphorus Magnesium Total Bilirubin AST ALT Alkaline Phosphatase Total Creatine Kinase 59 CK-MB (Mass) 1.15 Troponin I, Quant < 0.0120 NT-Pro-B Natriuret Pep Total Protein Albumin Globulin Albumin/Globulin Ratio 09/16/16 09/16/16 09/17/16 21:08 21:18 00:46 WBC RBC Hgb Hct MCV MCH MCHC RDW Plt Count MPV Neut % (Auto) Lymph % (Auto) [place] % (Auto) Eos % (Auto) Baso % (Auto) Neut # Lymph # [place] # Eos # Baso # Sodium 133 Potassium 3.2 L Chloride 93 L Carbon Dioxide 28 Anion Gap 15 BUN 20 H Creatinine 1.0 Est GFR ( Amer) > 60 Est GFR (Non-Af Amer) 55 POC Glucose (mg/dL) 420 H* 444 H* Random Glucose 284 H Hemoglobin A1c Calcium 8.4 L Phosphorus Magnesium Total Bilirubin AST ALT Alkaline Phosphatase Total Creatine Kinase 50 CK-MB (Mass) 0.80 Troponin I, Quant < 0.0120 NT-Pro-B Natriuret Pep Total Protein Albumin Globulin Albumin/Globulin Ratio 09/17/16 09/17/16 09/17/16 07:12 08:04 08:04 WBC 6.0 RBC 4.47 Hgb 13.7 Hct 40.9 MCV 91.6 MCH 30.6 MCHC 33.4 RDW 13.2 Plt Count 266 MPV 8.8 Neut % (Auto) 62.8 Lymph % (Auto) 23.9 [place] % (Auto) 9.5 Eos % (Auto) 2.5 Baso % (Auto) 1.3 Neut # 3.8 Lymph # 1.4 [place] # 0.6 Eos # 0.1 Baso # 0.1 Sodium 136 Potassium 3.5 L Chloride 95 L Carbon Dioxide 28 Anion Gap 17 BUN 18 H Creatinine 0.9 Est GFR ( Amer) > 60 Est GFR (Non-Af Amer) > 60 POC Glucose (mg/dL) 291 H Random Glucose 271 H Hemoglobin A1c Calcium 8.4 L Phosphorus 3.7 Magnesium 1.8 Total Bilirubin 0.6 AST 19 ALT 25 Alkaline Phosphatase 85 Total Creatine Kinase CK-MB (Mass) Troponin I, Quant NT-Pro-B Natriuret Pep Total Protein 6.7 Albumin 3.2 L Globulin 3.5 Albumin/Globulin Ratio 0.9 L 09/17/16 09/17/16 09/17/16 08:04 08:04 08:04 WBC RBC Hgb Hct MCV MCH MCHC RDW Plt Count MPV Neut % (Auto) Lymph % (Auto) [place] % (Auto) Eos % (Auto) Baso % (Auto) Neut # Lymph # [place] # Eos # Baso # Sodium Potassium Chloride Carbon Dioxide Anion Gap BUN Creatinine Est GFR ( Amer) Est GFR (Non-Af Amer) POC Glucose (mg/dL) Random Glucose Hemoglobin A1c 12.4 H Calcium Phosphorus Magnesium Total Bilirubin AST ALT Alkaline Phosphatase Total Creatine Kinase 46 CK-MB (Mass) 0.80 Troponin I, Quant < 0.0120 NT-Pro-B Natriuret Pep 456 Total Protein Albumin Globulin Albumin/Globulin Ratio 09/17/16 09/17/16 11:28 16:24 WBC RBC Hgb Hct MCV MCH MCHC RDW Plt Count MPV Neut % (Auto) Lymph % (Auto) [place] % (Auto) Eos % (Auto) Baso % (Auto) Neut # Lymph # [place] # Eos # Baso # Sodium Potassium Chloride Carbon Dioxide Anion Gap BUN Creatinine Est GFR ( Amer) Est GFR (Non-Af Amer) POC Glucose (mg/dL) 286 H 171 H Random Glucose Hemoglobin A1c Calcium Phosphorus Magnesium Total Bilirubin AST ALT Alkaline Phosphatase Total Creatine Kinase CK-MB (Mass) Troponin I, Quant NT-Pro-B Natriuret Pep Total Protein Albumin Globulin Albumin/Globulin Ratio Assessment & Plan (1) Frequent falls Assessment and Plan: etiology ? 2' to preload dependency check orthostatics check echocardiogram gentle IVF hydration Status: Acute (2) CAD (coronary artery disease) Assessment and Plan: stable no acute ischemic sx EKG and enzymes normal cont with DAPT, statins add low dose BB Status: Acute (3) CHF (congestive heart failure), NYHA class I Assessment and Plan: mild diastolic CHF preload dependent cont with cozaar Status: Acute - Assessment and Plan (Free Text) Assessment: mild diastolic preload dependent 2' to possibly UTI
[2016-09-17] MEDS: Saccharomyces Boulardi 250 mg Cap PO SCH (17:51)
--- NOTE | 2016-09-17 18:33 | CP.PCM.PN ---
<Ami Gil - Last Filed: 09/17/16 18:31> Subjective - Date & Time of Evaluation Date of Evaluation: 09/17/16 Time of Evaluation: 07:00 - Subjective Subjective: PGY1- Medicine Note- Dr. Boswell's Service Patient seen and examined at bedside and in no acute distress. Patient is worried about her cat being taken care of. Patient says she is in no pain. Patient has not had a bowel movement. Patient denies shortness of breath, chest pain, palpitations, abdominal pain, nausea, vomiting, diarrhea. Objective - Vital Signs/Intake and Output Vital Signs (last 24 hours): Temp Pulse Resp BP Pulse Ox 98.1 F 75 20 173/70 H 95 09/17/16 08:04 09/17/16 15:19 09/17/16 08:04 09/17/16 15:19 09/17/16 15:19 Intake and Output: 09/17/16 09/17/16 06:59 18:59 Intake Total 480 Output Total 0 Balance 480 - Medications Medications: Current Medications Alprazolam (Xanax) 1 mg PO TID PRN PRN Reason: Anxiety Last Admin: 09/17/16 00:09 Dose: 1 mg Clopidogrel Bisulfate (Plavix) 75 mg PO DAILY [facility] Last Admin: 09/17/16 12:03 Dose: 75 mg Clotrimazole (Lotrimin 1%) 60 gm TOP BID [facility] Last Admin: 09/17/16 17:52 Dose: 1 applic Diphenoxylate HCl/Atropine (Lomotil 0.025-2.5 Mg Tablet) 1 tab PO BID PRN PRN Reason: Diarrhea Famotidine (Pepcid) 20 mg PO BID [facility] Last Admin: 09/17/16 17:46 Dose: 20 mg Fluoxetine HCl (Prozac) 40 mg PO DAILY [facility] Last Admin: 09/17/16 09:12 Dose: 40 mg Gabapentin (Neurontin) 100 mg PO TID [facility] Last Admin: 09/17/16 17:46 Dose: 100 mg Heparin Sodium (Porcine) (Heparin) 5,000 units SC Q8H [facility] Home Med (Home Med) 300 unit PO DAILY [facility] Ciprofloxacin (Cipro 400mg/200ml Dsw) 400 mg in 200 mls @ 133 mls/hr IVPB Q12H [facility] Last Admin: 09/17/16 17:45 Dose: 133 mls/hr Insulin Aspart (Novolog) 10 unit SC TIDAC [facility] Last Admin: 09/17/16 17:47 Dose: 10 unit Insulin Detemir (Levemir) 10 unit SC Q12 [facility] Insulin Human Regular (Novolin R) 0 unit SC ACHS [facility] PRN Reason: Protocol Last Admin: 09/17/16 17:51 Dose: 2 unit Losartan Potassium (Cozaar) 100 mg PO DAILY [facility] Last Admin: 09/17/16 09:11 Dose: 100 mg Metformin HCl (Glucophage) 500 mg PO BID [facility] Last Admin: 09/17/16 17:46 Dose: 500 mg Pneumococcal Polyvalent Vaccine (Pneumovax 23 Vaccine) 0.5 ml IM .ONCE ONE Stop: 09/18/16 10:01 Rosuvastatin Calcium (Crestor) 2.5 mg PO [facility] Last Admin: 09/16/16 22:26 Dose: 2.5 mg Saccharomyces Boulardii (Florastor) 250 mg PO BID [facility] Last Admin: 09/17/16 17:51 Dose: 250 mg Sitagliptin Phosphate (Januvia) 100 mg PO DAILY [facility] Last Admin: 09/17/16 12:03 Dose: 100 mg Trazodone HCl (Desyrel) 50 mg PO [facility] Last Admin: 09/16/16 22:26 Dose: 50 mg - Labs Labs: 09/17/16 08:04 09/17/16 08:04 - Constitutional Appears: Well, Non-toxic, No Acute Distress - Head Exam Head Exam: ATRAUMATIC, NORMAL INSPECTION, NORMOCEPHALIC - Eye Exam Eye Exam: EOMI, Normal appearance, PERRL - ENT Exam ENT Exam: Mucous Membranes Moist, Normal Exam - Neck Exam Neck Exam: Full ROM, Normal Inspection. absent: Lymphadenopathy - Respiratory Exam Respiratory Exam: Clear to Ausculation Bilateral, NORMAL BREATHING PATTERN. absent: Rales, Rhonchi, Wheezes, Respiratory Distress, Stridor - Cardiovascular Exam Cardiovascular Exam: REGULAR RHYTHM, RRR. absent: Gallop, Rubs, Murmur - GI/Abdominal Exam GI & Abdominal Exam: Soft, Normal Bowel Sounds. absent: Distended, Firm, Guarding, Rigid - Extremities Exam Extremities Exam: Pedal Edema Additional comments: b/l lower extremity edema - Back Exam Back Exam: NORMAL INSPECTION. absent: rash noted - Neurological Exam Neurological Exam: Alert, Awake, Oriented x3 - Psychiatric Exam Psychiatric exam: Anxious, Normal Affect, Normal Mood - Skin Skin Exam: Intact, Normal Color, Warm Assessment and Plan - Assessment and Plan (Free Text) Assessment: 1. Mechanical Fall orthostatic check negative: laying flat: BP 183/90 HR 68, sitting up: BP 172/93 HR 64 monitor bp 2. UTI positive urinalysis in ED Macrobid given in ED Ciprofloxain 400 IV BID f/u U/C 3. Chest Pain ROMIS x3 negative EKG x 3 NSR 4. Lower Extremity Edema f/u Echo f/u pro bnp f/u venous dopplers 5. Hypokalemia 3.1 in ED, 40 Kdur given 40 kdur given 09/17 f/u cmp 6. Uncontrolled DM HgA1C ISS (high scale) Neurontin 100 mg PO TID Metformin 500 mg PO BID Sitagliptin 100 mg PO daily Novolog 10 unit SC TIDAC Levemir 10 unit SC q12h Home medication : Invokana 300 mg daily accuchecks 7. HTN Losartan 100 mg PO daily 8. Depression/ anxiety Xanax 1 mg PO TID PRN Prozac 40 mg PO daily Trazodone 50 mg PO HS 9. hx stents plavix 75 mg PO daily 10. IBS with diarrhea Lamotil 1 tab po BID PRN patient has had no BM, colace daily, stop once patient has BM 11. Groin Burning/Discomfort Clotrimazole cream - apply BID 12. Prophylactic Pepcid 20 mg PO BID Plavix 75 mg PO daily Florastor 250 mg PO BID diabetic diet palliative care- goals of care to be discussed social work to discuss possible snf <Mayte Boswell V - Last Filed: 09/17/16 19:22> Objective - Vital Signs/Intake and Output Vital Signs (last 24 hours): Temp Pulse Resp BP Pulse Ox 98.1 F 75 20 173/70 H 95 09/17/16 08:04 09/17/16 15:19 09/17/16 08:04 09/17/16 15:19 09/17/16 15:19 Intake and Output: 09/17/16 09/17/16 06:59 18:59 Intake Total 480 Output Total 0 Balance 480 - Medications Medications: Current Medications Alprazolam (Xanax) 1 mg PO TID PRN PRN Reason: Anxiety Last Admin: 09/17/16 00:09 Dose: 1 mg Clopidogrel Bisulfate (Plavix) 75 mg PO DAILY [facility] Last Admin: 09/17/16 12:03 Dose: 75 mg Clotrimazole (Lotrimin 1%) 60 gm TOP BID [facility] Last Admin: 09/17/16 17:52 Dose: 1 applic Diphenoxylate HCl/Atropine (Lomotil 0.025-2.5 Mg Tablet) 1 tab PO BID PRN PRN Reason: Diarrhea Docusate Sodium (Colace) 100 mg PO DAILY [facility] Famotidine (Pepcid) 20 mg PO BID [facility] Last Admin: 09/17/16 17:46 Dose: 20 mg Fluoxetine HCl (Prozac) 40 mg PO DAILY [facility] Last Admin: 09/17/16 09:12 Dose: 40 mg Gabapentin (Neurontin) 100 mg PO TID [facility] Last Admin: 09/17/16 17:46 Dose: 100 mg Heparin Sodium (Porcine) (Heparin) 5,000 units SC Q8H [facility] Home Med (Home Med) 300 unit PO DAILY [facility] Ciprofloxacin (Cipro 400mg/200ml Dsw) 400 mg in 200 mls @ 133 mls/hr IVPB Q12H [facility] Last Admin: 09/17/16 17:45 Dose: 133 mls/hr Insulin Aspart (Novolog) 10 unit SC TIDAC [facility] Last Admin: 09/17/16 17:47 Dose: 10 unit Insulin Detemir (Levemir) 10 unit SC Q12 [facility] Insulin Human Regular (Novolin R) 0 unit SC ACHS [facility] PRN Reason: Protocol Last Admin: 09/17/16 17:51 Dose: 2 unit Losartan Potassium (Cozaar) 100 mg PO DAILY [facility] Last Admin: 09/17/16 09:11 Dose: 100 mg Metformin HCl (Glucophage) 500 mg PO BID [facility] Last Admin: 09/17/16 17:46 Dose: 500 mg Pneumococcal Polyvalent Vaccine (Pneumovax 23 Vaccine) 0.5 ml IM .ONCE ONE Stop: 09/18/16 10:01 Rosuvastatin Calcium (Crestor) 2.5 mg PO HS [facility] Last Admin: 09/16/16 22:26 Dose: 2.5 mg Saccharomyces Boulardii (Florastor) 250 mg PO BID [facility] Last Admin: 09/17/16 17:51 Dose: 250 mg Sitagliptin Phosphate (Januvia) 100 mg PO DAILY [facility] Last Admin: 09/17/16 12:03 Dose: 100 mg Trazodone HCl (Desyrel) 50 mg PO HS [facility] Last Admin: 09/16/16 22:26 Dose: 50 mg - Labs Labs: 09/17/16 08:04 09/17/16 08:04 Attending/Attestation - Attestation I have personally seen and examined this patient.: Yes I have fully participated in the care of the patient.: Yes I have reviewed all pertinent clinical information, including history, physical exam and plan: Yes Notes (Text): Patient seen, examined, and case discussed with day-time resident. Patient seen in the morning at lunch time. Patient quite visible upset because she is concerned regarding care of her cat at the [facility] and preoccupied with taking care of her cat. Patient re-assessed in the afternoon. Patient much calmer; has made arrangements for the care of her cat. Patient reports she takes multiple medications and she is herself admits she is unclear as to what she takes/should be taking and is inconsistent as to what she takes. Patient recommended for pill case to help sort out her medication and she reports she is aware but gets pushed off on her to-do list. Resident has called her pharmacy to see what her active medications are; medications reconciled and adjusted with the resident. Patient has completed echocardiogram; awaiting report and ordered for venous dopplers. Patient reports she has worked with physical therapy this afternoon. Discussed with case management, patient is being setup for possible [facility]. Patient is now agreeable to snf given that her cat is cared for. Discussed with cardiology, will come and see the patient. Patient had completed echo not officially read during my assessment with the patient. Assessment/Plan 1. s/p Mechanical Fall * On admission: orthostatic check negative: laying flat: BP 183/90 HR 68, sitting up: BP 172/93 HR 64 * monitor bp * Physical therapy eval and treat * Occupational therapy eval and treat * Lumbar xray (09/16/16): no acute fracture or spondylolisthesis. Multilevel degenerative disc disease, worse at L5-S1 * Knee xray (09/16/16): no acute displaced fracture or dislocation. Occult fractures cannot be excluded on plain radiographs * Hip Xray (09/16/16): no acute displaced fracture or dislocation. Occult fractures cannot be excluded on plain radiographs. * CT Head (09/16/16): no acute intracranial abnormality. severe chronic microangiopathic changes and moderate age-related global parencymal volume loss. 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 Abnormal UA * Dose of Macrobid given in the ED * Urine culture was collected; awaiting resulted * Abx: Ciprofloxacin 400 IV Q12 hours (active since 09/16/16) * Florastor 250mg PO bid 3. Chest Pain * probnp: within normal * ROMIX3 negative * Denies at bedside * Patient has history of CAD, uncontrolled diabetes * Echocardiogram (09/17/16): left ventricle is normal size, normal left ventricular wall thickness, left ventricle is borderline, normal LV segmental wall motion. Mitral regurgitation is mild. Grade-1 abnormal relaxation. * Increase Crestor 10 mg POqHS * Plavix 75mg PO daily * start Aspirin 81mg PO daily * Losartan 100mg PO daily 4. Lower Extremity Edema * Cardiology (Dr. Arias) consult-->will come and see the patient * Echocardiogram (09/17/16): left ventricle is normal size, normal left ventricular wall thickness, left ventricle is borderline, normal LV segmental wall motion. Mitral regurgitation is mild. Grade-1 abnormal relaxation. * Pending venous dopplers 5. Hypokalemia * Monitor and replete * Check CMP and Mg2+ 6. Uncontrolled DM * HgA1C: 12.4 * ISS (high scale) * Neurontin 100 mg PO TID * Metformin 500 mg PO BID * Sitagliptin 100 mg PO daily * Novolog 10 unit SC TIDAC * Levemir 10 unit SC Q12 hours * Patient normally takes a Metformin 1000mg/januvia 100mg XL but is not available in the hospital * Home Medication: Invokana restarted since patient has it available in the hospital 7. Uncontrolled hypertension * Losartan 100 mg PO daily * Inciting factor: worry over her cat * Start on HCTZ 25mg PO daily 8. Depression/ anxiety * Xanax 1 mg PO TID PRN anxiety-->confirmed with pharmacy by the resident * Prozac 40 mg PO daily->confirmed with pharmacy by the resident * Trazodone 50 mg PO HS->confirmed with pharmacy by the resident 9. CAD with stents * plavix 75 mg PO daily * Start Aspirin 81mg PO daily * Increase Crestor 10 mg POqHS * Echocardiogram (09/17/16): left ventricle is normal size, normal left ventricular wall thickness, left ventricle is borderline, normal LV segmental wall motion. Mitral regurgitation is mild. Grade-1 abnormal relaxation. 10. IBS with diarrhea * Lamotil 1 tab po BID PRN 11. Groin Burning/Discomfort * Clotrimazole cream - apply BID 12. Prophylactic * Pepcid 20 mg PO BID * Plavix 75 mg PO daily * diabetic diet * heparin 5000 units subqhS * PT/OT eval
--- NOTE | 2016-09-17 18:52 | CARD ---
APPROVED REPORT EXAM: Two-dimensional and M-mode echocardiogram with Doppler and color Doppler. Other Information Quality : GoodRhythm : NSR INDICATION CAD Congestive Heart Failure RISK FACTORS Hypertension M-Mode DIMENSIONS Left Atrium (MM)4.76 (2.5-4.0cm)IVSd0.97 (0.7-1.1cm) Aortic Root2.81 (2.2-3.7cm)LVDd5.41 (4.0-5.6cm) Aortic Cusp Exc.1.52 (1.5-2.0cm)PWd1.01 (0.7-1.1cm) FS (%) 28 %LVDs3.89 (2.0-3.8cm) LVEF (%)50 (>50%) Mitral Valve MV E Aefafkch429.5cm/sMV A Oqrnwvms387.8cm/sE/A ratio0.9 TDI E/Lateral E'0.0E/Medial E'0.0 Tricuspid Valve TR Peak Nmiupwtx447iy/sTR Peak Gr.[id number] LEFT VENTRICLE The left ventricle is normal size. There is normal left ventricular wall thickness. Left ventricle is borderline. There is normal LV segmental wall motion. Transmitral Doppler flow pattern is Grade I-abnormal relaxation pattern. RIGHT VENTRICLE The right ventricle is normal size. There is normal right ventricular wall thickness. The right ventricular systolic function is normal. ATRIA The left atrium is moderately dilated. The right atrium size is normal. AORTIC VALVE The aortic valve is not well visualized. No aortic regurgitation is present. There is no aortic valvular stenosis. MITRAL VALVE The mitral valve is mildly thickened. Mitral regurgitation is mild. TRICUSPID VALVE The tricuspid valve is normal in structure. There is no tricuspid valve regurgitation noted. GREAT VESSELS The aortic root is normal in size. The IVC collapses <50% with inspiration. PERICARDIAL EFFUSION There is a trace loculated anterior pericardial effusion. <Conclusion> The left ventricle is normal size. There is normal left ventricular wall thickness. Left ventricle is borderline. There is normal LV segmental wall motion. Transmitral Doppler flow pattern is Grade I-abnormal relaxation pattern. Mitral regurgitation is mild.
[2016-09-18] MEDS: Ciprofloxacin 400mg/200ml D5W 400 MG/200 ML BAG IVPB SCH ×2 (06:13→18:00)
[2016-09-18 06:39] LABS: BASO # 0.1 K/uL (0.0-0.2); EOS # 0.3 K/uL (0.0-0.7); EOS % 3.8 % (0.0-4.0); HEMATOCRIT 39.8 % (34.0-47.0); LYMPH % 27.9 % (20.0-40.0); MEAN CELL VOLUME 91.7 fL (81.0-99.0); MEAN CORPUSCULAR HEMOGLOBIN 30.7 pg (27.0-31.0); MEAN CORPUSCULAR HGB CONC 33.5 g/dL (33.0-37.0); MONO # 0.8 K/uL (0.0-0.8); MONO % 10.4 % (0.0-10.0); RED CELL DISTRIBUTION WIDTH 13.3 % (11.5-14.5); WHITE BLOOD COUNT 7.3 K/uL (4.8-10.8)
[2016-09-18 07:31] LABS: CHLORIDE 99 mmol/L (98-107); POTASSIUM 4.1 mmol/L (3.6-5.2); SODIUM 137 mmol/L (132-148)
[2016-09-18 07:33] LABS: BILIRUBIN,TOTAL 0.5 mg/dL (0.2-1.3); GFR AFRICAN-AMERICAN > 60
[2016-09-18 07:34] LABS: ALB/GLOB RATIO 0.9 (1.0-2.1); ALKALINE PHOSPHATASE 76 U/L (38-126); ALT/SGPT 18 U/L (9-52); AST/SGOT 20 U/L (14-36); BLOOD UREA NITROGEN 22 mg/dL (7-17); CARBON DIOXIDE 24 mmol/L (22-30); GLUCOSE,RANDOM 234 mg/dL (65-105); TOTAL PROTEIN 6.5 g/dL (6.3-8.3)
[2016-09-18 07:35] LABS: CALCIUM 8.6 mg/dl (8.6-10.4); PHOSPHOROUS 3.7 mg/dL (2.5-4.5)
[2016-09-18] MEDS: (Novolin R) Insulin Human Regular 100 units/ml vial SC SCH ×4 (08:02→22:07)
[2016-09-18] MEDS: (Novolog) Insulin Aspart, Recombinant 100 u/ml 10 ml vial SC SCH ×3 (08:03→16:30)
[2016-09-18] MEDS: Insulin Detemir 100 units/ml Vial (Levemir) SC SCH ×2 (09:34→22:06)
[2016-09-18] MEDS: Saccharomyces Boulardi 250 mg Cap PO SCH ×2 (09:34→18:59)
[2016-09-18] MEDS: Clotrimazole 1% Cream(30 gm) TOP SCH ×2 (09:35→18:10)
[2016-09-18] MEDS ORDERED: Pneumococcal 23-Valent Vaccine IM ONE (10:00)
[2016-09-18] MEDS: INVOKANA 300 MG PO SCH (11:05)
[2016-09-18] MEDS ORDERED: Promethazine/Cod 6.25mg-10mg/5ml Syr UD PO PRN (16:47)
[2016-09-18] MEDS: guaiFENesin 600 mg ER Tab PO SCH (19:00)
--- NOTE | 2016-09-18 21:43 | CP.PCM.PN ---
<Ami Gil - Last Filed: 09/18/16 21:38> Subjective - Date & Time of Evaluation Date of Evaluation: 09/18/16 Time of Evaluation: 07:00 - Subjective Subjective: PGY1- Medicine Note- Dr. Boswell's Service Patient seen and examined at bedside and in no acute distress. Patient feels much better today. Patient has some irritations on her groin and inner thighs from urinating on herself since she in incontinent. Patient has some mild back pain. Patient says her leg pain is decreased. Patient is less anxious about her cat. Patient has not had a bm today. Patient denies chest pain, palpitations, shortness of breath, abdominal pain, nausea, vomiting, diarrhea. Objective - Vital Signs/Intake and Output Vital Signs (last 24 hours): Temp Pulse Resp BP Pulse Ox 98.8 F 75 20 143/81 97 09/18/16 15:00 09/18/16 15:00 09/18/16 15:00 09/18/16 15:00 09/18/16 15:00 Intake and Output: 09/18/16 09/19/16 18:59 06:59 Output Total 0 Balance 0 - Medications Medications: Current Medications Alprazolam (Xanax) 1 mg PO TID PRN PRN Reason: Anxiety Last Admin: 09/18/16 21:00 Dose: 1 mg Aspirin (Ecotrin) 81 mg PO DAILY [facility] Last Admin: 09/18/16 09:34 Dose: 81 mg Clopidogrel Bisulfate (Plavix) 75 mg PO DAILY [facility] Last Admin: 09/18/16 09:34 Dose: 75 mg Clotrimazole (Lotrimin 1%) 60 gm TOP BID [facility] Last Admin: 09/18/16 18:10 Dose: 1 applic Diphenoxylate HCl/Atropine (Lomotil 0.025-2.5 Mg Tablet) 1 tab PO BID PRN PRN Reason: Diarrhea Docusate Sodium (Colace) 100 mg PO DAILY [facility] Last Admin: 09/18/16 09:34 Dose: 100 mg Famotidine (Pepcid) 20 mg PO BID [facility] Last Admin: 09/18/16 18:00 Dose: 20 mg Fluoxetine HCl (Prozac) 40 mg PO DAILY [facility] Last Admin: 09/18/16 09:44 Dose: 40 mg Gabapentin (Neurontin) 100 mg PO TID [facility] Last Admin: 09/18/16 19:00 Dose: 100 mg Guaifenesin (Mucinex La) 600 mg PO BID [facility] Last Admin: 09/18/16 19:00 Dose: 600 mg Heparin Sodium (Porcine) (Heparin) 5,000 units SC Q8H [facility] Last Admin: 09/18/16 21:01 Dose: 5,000 units Home Med (Patient's Own Medication) 1 tab PO DAILY [facility] Last Admin: 09/18/16 11:05 Dose: 1 tab Hydrochlorothiazide (Hydrodiuril) 25 mg PO DAILY [facility] Last Admin: 09/18/16 17:00 Dose: 25 mg Ciprofloxacin (Cipro 400mg/200ml Dsw) 400 mg in 200 mls @ 133 mls/hr IVPB Q12H [facility] Last Admin: 09/18/16 18:00 Dose: 133 mls/hr Insulin Aspart (Novolog) 10 unit SC TIDAC [facility] Last Admin: 09/18/16 16:30 Dose: Not Given Insulin Detemir (Levemir) 10 unit SC Q12 [facility] Last Admin: 09/18/16 09:34 Dose: 10 unit Insulin Human Regular (Novolin R) 0 unit SC ACHS [facility] PRN Reason: Protocol Last Admin: 09/18/16 16:30 Dose: Not Given Losartan Potassium (Cozaar) 100 mg PO DAILY [facility] Last Admin: 09/18/16 09:34 Dose: 100 mg Metformin HCl (Glucophage) 500 mg PO BID [facility] Last Admin: 09/18/16 18:59 Dose: 500 mg Promethazine HCl/Codeine (Phenergan/Codeine Oral Syrup) 5 ml PO Q4 PRN PRN Reason: Cough Last Admin: 09/18/16 20:54 Dose: 5 ml Rosuvastatin Calcium (Crestor) 10 mg PO [facility] Last Admin: 09/18/16 21:00 Dose: 10 mg Saccharomyces Boulardii (Florastor) 250 mg PO BID [facility] Last Admin: 09/18/16 18:59 Dose: 250 mg Sitagliptin Phosphate (Januvia) 100 mg PO DAILY [facility] Last Admin: 09/18/16 09:34 Dose: 100 mg Trazodone HCl (Desyrel) 50 mg PO [facility] Last Admin: 09/18/16 21:00 Dose: 50 mg - Labs Labs: 09/18/16 06:25 09/18/16 06:25 - Constitutional Appears: Well - Head Exam Head Exam: ATRAUMATIC, NORMAL INSPECTION, NORMOCEPHALIC - Eye Exam Eye Exam: EOMI, Normal appearance, PERRL - ENT Exam ENT Exam: Mucous Membranes Moist, Normal Exam - Neck Exam Neck Exam: Full ROM, Normal Inspection. absent: Lymphadenopathy - Respiratory Exam Respiratory Exam: Clear to Ausculation Bilateral, NORMAL BREATHING PATTERN - Cardiovascular Exam Cardiovascular Exam: REGULAR RHYTHM, +S1, +S2. absent: Murmur - GI/Abdominal Exam GI & Abdominal Exam: Soft, Normal Bowel Sounds. absent: Tenderness - Extremities Exam Extremities Exam: Pedal Edema, Tenderness Additional comments: bilateral edema of lower extremities - Back Exam Back Exam: NORMAL INSPECTION. absent: rash noted - Neurological Exam Neurological Exam: Alert, Awake, Oriented x3 - Psychiatric Exam Psychiatric exam: Normal Affect, Normal Mood - Skin Skin Exam: Intact, Normal Color, Warm Assessment and Plan - Assessment and Plan (Free Text) Assessment: 1. s/p Mechanical Fall * On admission: orthostatic check negative: laying flat: BP 183/90 HR 68, sitting up: BP 172/93 HR 64 * monitor bp * Physical therapy eval and treat * Occupational therapy eval and treat * Lumbar xray (09/16/16): no acute fracture or spondylolisthesis. Multilevel degenerative disc disease, worse at L5-S1 * Knee xray (09/16/16): no acute displaced fracture or dislocation. Occult fractures cannot be excluded on plain radiographs * Hip Xray (09/16/16): no acute displaced fracture or dislocation. Occult fractures cannot be excluded on plain radiographs. * CT Head (09/16/16): no acute intracranial abnormality. severe chronic microangiopathic changes and moderate age-related global parencymal volume loss. 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 Abnormal UA * Dose of Macrobid given in the ED * Urine culture negative * Abx: Ciprofloxacin 400 IV Q12 hours (active since 09/16/16) * Florastor 250mg PO bid 3. Chest Pain * probnp: within normal * ROMIX3 negative * Denies at bedside * Patient has history of CAD, uncontrolled diabetes * Echocardiogram (09/17/16): left ventricle is normal size, normal left ventricular wall thickness, left ventricle is borderline, normal LV segmental wall motion. Mitral regurgitation is mild. Grade-1 abnormal relaxation. * Increase Crestor 10 mg POqHS * Plavix 75mg PO daily * start Aspirin 81mg PO daily * Losartan 100mg PO daily 4. Lower Extremity Edema * Cardiology (Dr. Arias) consult-->will come and see the patient * Echocardiogram (09/17/16): left ventricle is normal size, normal left ventricular wall thickness, left ventricle is borderline, normal LV segmental wall motion. Mitral regurgitation is mild. Grade-1 abnormal relaxation. * Pending venous dopplers 5. Hypokalemia * Monitor and replete * Check CMP and Mg2+ 6. Uncontrolled DM * HgA1C: 12.4 * ISS (high scale) * Neurontin 100 mg PO TID * Metformin 500 mg PO BID * Sitagliptin 100 mg PO daily * Novolog 10 unit SC TIDAC * Levemir 10 unit SC Q12 hours * Patient normally takes a Metformin 1000mg/januvia 100mg XL but is not available in the hospital * Home Medication: Invokana restarted since patient has it available in the hospital 7. Uncontrolled hypertension * Losartan 100 mg PO daily * Inciting factor: worry over her cat * Start on HCTZ 25mg PO daily 8. Depression/ anxiety * Xanax 1 mg PO TID PRN anxiety-->confirmed with pharmacy by the resident * Prozac 40 mg PO daily->confirmed with pharmacy by the resident * Trazodone 50 mg PO HS->confirmed with pharmacy by the resident 9. CAD with stents * plavix 75 mg PO daily * Start Aspirin 81mg PO daily * Increase Crestor 10 mg POqHS * Echocardiogram (09/17/16): left ventricle is normal size, normal left ventricular wall thickness, left ventricle is borderline, normal LV segmental wall motion. Mitral regurgitation is mild. Grade-1 abnormal relaxation. 10. IBS with diarrhea * Lamotil 1 tab po BID PRN 11. Groin Burning/Discomfort * Clotrimazole cream - apply BID * patel inserted 12. Prophylactic * Pepcid 20 mg PO BID * Plavix 75 mg PO daily * diabetic diet * heparin 5000 units subqhS * PT/OT eval <Mayte Boswell V - Last Filed: 09/18/16 22:11> Objective - Vital Signs/Intake and Output Vital Signs (last 24 hours): Temp Pulse Resp BP Pulse Ox 98.8 F 75 20 143/81 97 09/18/16 15:00 09/18/16 15:00 09/18/16 15:00 09/18/16 15:00 09/18/16 15:00 Intake and Output: 09/18/16 09/19/16 18:59 06:59 Output Total 0 Balance 0 - Medications Medications: Current Medications Alprazolam (Xanax) 1 mg PO TID PRN PRN Reason: Anxiety Last Admin: 09/18/16 21:00 Dose: 1 mg Aspirin (Ecotrin) 81 mg PO DAILY [facility] Last Admin: 09/18/16 09:34 Dose: 81 mg Clopidogrel Bisulfate (Plavix) 75 mg PO DAILY [facility] Last Admin: 09/18/16 09:34 Dose: 75 mg Clotrimazole (Lotrimin 1%) 60 gm TOP BID [facility] Last Admin: 09/18/16 18:10 Dose: 1 applic Diphenoxylate HCl/Atropine (Lomotil 0.025-2.5 Mg Tablet) 1 tab PO BID PRN PRN Reason: Diarrhea Docusate Sodium (Colace) 100 mg PO DAILY [facility] Last Admin: 09/18/16 09:34 Dose: 100 mg Famotidine (Pepcid) 20 mg PO BID [facility] Last Admin: 09/18/16 18:00 Dose: 20 mg Fluoxetine HCl (Prozac) 40 mg PO DAILY [facility] Last Admin: 09/18/16 09:44 Dose: 40 mg Gabapentin (Neurontin) 100 mg PO TID [facility] Last Admin: 09/18/16 19:00 Dose: 100 mg Guaifenesin (Mucinex La) 600 mg PO BID [facility] Last Admin: 09/18/16 19:00 Dose: 600 mg Heparin Sodium (Porcine) (Heparin) 5,000 units SC Q8H [facility] Last Admin: 09/18/16 21:01 Dose: 5,000 units Home Med (Patient's Own Medication) 1 tab PO DAILY [facility] Last Admin: 09/18/16 11:05 Dose: 1 tab Hydrochlorothiazide (Hydrodiuril) 25 mg PO DAILY [facility] Last Admin: 09/18/16 17:00 Dose: 25 mg Ciprofloxacin (Cipro 400mg/200ml Dsw) 400 mg in 200 mls @ 133 mls/hr IVPB Q12H [facility] Last Admin: 09/18/16 18:00 Dose: 133 mls/hr Insulin Aspart (Novolog) 10 unit SC TIDAC [facility] Last Admin: 09/18/16 16:30 Dose: Not Given Insulin Detemir (Levemir) 10 unit SC Q12 [facility] Last Admin: 09/18/16 09:34 Dose: 10 unit Insulin Human Regular (Novolin R) 0 unit SC ACHS [facility] PRN Reason: Protocol Last Admin: 09/18/16 16:30 Dose: Not Given Losartan Potassium (Cozaar) 100 mg PO DAILY [facility] Last Admin: 09/18/16 09:34 Dose: 100 mg Metformin HCl (Glucophage) 500 mg PO BID [facility] Last Admin: 09/18/16 18:59 Dose: 500 mg Promethazine HCl/Codeine (Phenergan/Codeine Oral Syrup) 5 ml PO Q4 PRN PRN Reason: Cough Last Admin: 09/18/16 20:54 Dose: 5 ml Rosuvastatin Calcium (Crestor) 10 mg PO HS [facility] Last Admin: 09/18/16 21:00 Dose: 10 mg Saccharomyces Boulardii (Florastor) 250 mg PO BID [facility] Last Admin: 09/18/16 18:59 Dose: 250 mg Sitagliptin Phosphate (Januvia) 100 mg PO DAILY [facility] Last Admin: 09/18/16 09:34 Dose: 100 mg Trazodone HCl (Desyrel) 50 mg PO HS [facility] Last Admin: 09/18/16 21:00 Dose: 50 mg - Labs Labs: 09/18/16 06:25 09/18/16 06:25 Attending/Attestation - Attestation I have personally seen and examined this patient.: Yes I have fully participated in the care of the patient.: Yes I have reviewed all pertinent clinical information, including history, physical exam and plan: Yes Notes (Text): Patient seen, examined, and case discussed with day-time resident. Patient seen this afternoon. Patient reports she has been working with physical therapy today. She has not had chest pain. She expresses worry for her cat but she is in better spirits. Patient has a history of urinary incontinence. Urine culture shows no growth. Instructed the nurse they can insert patel to prevent dermatitis secondary to urinary incontinence. She will need outpatient follow- up in regards to urinary incontinence. Patient reports productive cough. Patient started on PRN for cough suppressant and reduce the consistency of the phlegm. Will order chest xray r/o pneumonia. Patient's long acting insulin adjusted to Levemir 15 units subq 12hours given she has required 10 units of coverage insulin. Assessment/Plan 1. s/p Mechanical Fall * On admission: orthostatic check negative: laying flat: BP 183/90 HR 68, sitting up: BP 172/93 HR 64 * monitor bp * Lumbar xray (09/16/16): no acute fracture or spondylolisthesis. Multilevel degenerative disc disease, worse at L5-S1 * Knee xray (09/16/16): no acute displaced fracture or dislocation. Occult fractures cannot be excluded on plain radiographs * Hip Xray (09/16/16): no acute displaced fracture or dislocation. Occult fractures cannot be excluded on plain radiographs. * CT Head (09/16/16): no acute intracranial abnormality. severe chronic microangiopathic changes and moderate age-related global parencymal volume loss. Old lacunar infarctions in bilateral amado radiata * Refer to PT/OT notes under prophylactic care 2. Abnormal UA * Dose of Macrobid given in the ED * Urine culture negative * Abx: Ciprofloxacin 400 IV Q12 hours (active since 09/16/16) * Florastor 250mg PO bid 3. Chest Pain * probnp: within normal * ROMIX3 negative * Denies at bedside * Patient has history of CAD, uncontrolled diabetes * Echocardiogram (09/17/16): left ventricle is normal size, normal left ventricular wall thickness, left ventricle is borderline, normal LV segmental wall motion. Mitral regurgitation is mild. Grade-1 abnormal relaxation. * Increase Crestor 10 mg POqHS * Plavix 75mg PO daily * start Aspirin 81mg PO daily * Losartan 100mg PO daily 4. Lower Extremity Edema * Cardiology (Dr. Arias) consult-->will come and see the patient * Echocardiogram (09/17/16): left ventricle is normal size, normal left ventricular wall thickness, left ventricle is borderline, normal LV segmental wall motion. Mitral regurgitation is mild. Grade-1 abnormal relaxation. * Pending venous dopplers 5. Hypokalemia * Monitor and replete * Check CMP and Mg2+ 6. Uncontrolled DM * HgA1C: 12.4 * ISS (high scale) * Neurontin 100 mg PO TID * Metformin 500 mg PO BID * Sitagliptin 100 mg PO daily * Novolog 10 unit SC TIDAC * Will increase Levemir 15 unit SC Q12 hours to start tonight * Patient normally takes a Metformin 1000mg/januvia 100mg XL but is not available in the hospital * Home Medication: Invokana restarted since patient has it available in the hospital 7. Uncontrolled hypertension * Losartan 100 mg PO daily * Start on HCTZ 25mg PO daily * Will continue to monitor 8. Depression/ anxiety * Xanax 1 mg PO TID PRN anxiety-->confirmed with pharmacy by the resident * Prozac 40 mg PO daily->confirmed with pharmacy by the resident * Trazodone 50 mg PO HS->confirmed with pharmacy by the resident 9. CAD with stents * plavix 75 mg PO daily * Start Aspirin 81mg PO daily * Increase Crestor 10 mg POqHS * Echocardiogram (09/17/16): left ventricle is normal size, normal left ventricular wall thickness, left ventricle is borderline, normal LV segmental wall motion. Mitral regurgitation is mild. Grade-1 abnormal relaxation. 10. IBS with diarrhea * Lamotil 1 tab po BID PRN 11. Groin Burning/Discomfort * Clotrimazole cream - apply BID 12. Urinary incontinence * History of * Urine culture (09/17/16): no growth (<1000 CFU/ML) * Ciprofloxcin 400mg IVPB Q 12hours (active since 09/16/16, day 2 of antibiotic) to cover given abnormal UA, frequency 13. Cough * Mucinex 600mg PO BID * Phenergan w codeine 5ml PO Q 4hour PRN cough * Will order for portable chest xray 14. Prophylactic * Pepcid 20 mg PO BID * Plavix 75 mg PO daily * diabetic diet * heparin 5000 units subqhS * Physical therapy eval and treat (09/18): CONTINUE PT, subacute rehab;CLEARED FOR DAILY OOB W/ ASSIST OR USE OF NARCISA MCKAY * Occupational therapy eval and treat (09/17): subacute rehab; Patient was seen for initial eval and bed mobility,supine to sit to stand and transfers,rom to bue and instructions in self rom exs to further improve strength and functional use in ADL * Per social work, patient is accepted to [facility] * Patel placed
[2016-09-19] MEDS: Ciprofloxacin 400mg/200ml D5W 400 MG/200 ML BAG IVPB SCH (05:16)
--- NOTE | 2016-09-19 07:09 | CP.PCM.PN ---
Subjective - Date & Time of Evaluation Date of Evaluation: 09/19/16 Time of Evaluation: 07:09 - Subjective Subjective: PGY-[address] Boswell's service: Pt seen and examined at bedside. Nursing reports no acute events overnight. Objective - Vital Signs/Intake and Output Vital Signs (last 24 hours): Temp Pulse Resp BP Pulse Ox 98.9 F 91 H 20 136/65 98 09/19/16 00:15 09/19/16 00:15 09/19/16 00:15 09/19/16 00:15 09/19/16 00:15 Intake and Output: 09/19/16 09/19/16 06:59 18:59 Intake Total 440 Output Total 1200 Balance -760 - Medications Medications: Current Medications Alprazolam (Xanax) 1 mg PO TID PRN PRN Reason: Anxiety Last Admin: 09/18/16 21:00 Dose: 1 mg Aspirin (Ecotrin) 81 mg PO DAILY [facility] Last Admin: 09/18/16 09:34 Dose: 81 mg Clopidogrel Bisulfate (Plavix) 75 mg PO DAILY [facility] Last Admin: 09/18/16 09:34 Dose: 75 mg Clotrimazole (Lotrimin 1%) 60 gm TOP BID [facility] Last Admin: 09/18/16 18:10 Dose: 1 applic Diphenoxylate HCl/Atropine (Lomotil 0.025-2.5 Mg Tablet) 1 tab PO BID PRN PRN Reason: Diarrhea Docusate Sodium (Colace) 100 mg PO DAILY [facility] Last Admin: 09/18/16 09:34 Dose: 100 mg Famotidine (Pepcid) 20 mg PO BID [facility] Last Admin: 09/18/16 18:00 Dose: 20 mg Fluoxetine HCl (Prozac) 40 mg PO DAILY [facility] Last Admin: 09/18/16 09:44 Dose: 40 mg Gabapentin (Neurontin) 100 mg PO TID [facility] Last Admin: 09/18/16 19:00 Dose: 100 mg Guaifenesin (Mucinex La) 600 mg PO BID [facility] Last Admin: 09/18/16 19:00 Dose: 600 mg Heparin Sodium (Porcine) (Heparin) 5,000 units SC Q8H [facility] Last Admin: 09/19/16 05:16 Dose: 5,000 units Home Med (Patient's Own Medication) 1 tab PO DAILY [facility] Last Admin: 09/18/16 11:05 Dose: 1 tab Hydrochlorothiazide (Hydrodiuril) 25 mg PO DAILY [facility] Last Admin: 09/18/16 17:00 Dose: 25 mg Ciprofloxacin (Cipro 400mg/200ml Dsw) 400 mg in 200 mls @ 133 mls/hr IVPB Q12H [facility] Last Admin: 09/19/16 05:16 Dose: 133 mls/hr Insulin Aspart (Novolog) 10 unit SC TIDAC [facility] Last Admin: 09/18/16 16:30 Dose: Not Given Insulin Detemir (Levemir) 15 unit SC Q12 [facility] Insulin Human Regular (Novolin R) 0 unit SC ACHS [facility] PRN Reason: Protocol Last Admin: 09/18/16 22:07 Dose: Not Given Losartan Potassium (Cozaar) 100 mg PO DAILY [facility] Last Admin: 09/18/16 09:34 Dose: 100 mg Metformin HCl (Glucophage) 500 mg PO BID [facility] Last Admin: 09/18/16 18:59 Dose: 500 mg Promethazine HCl/Codeine (Phenergan/Codeine Oral Syrup) 5 ml PO Q4 PRN PRN Reason: Cough Last Admin: 09/18/16 20:54 Dose: 5 ml Rosuvastatin Calcium (Crestor) 10 mg PO HS [facility] Last Admin: 09/18/16 21:00 Dose: 10 mg Saccharomyces Boulardii (Florastor) 250 mg PO BID [facility] Last Admin: 09/18/16 18:59 Dose: 250 mg Sitagliptin Phosphate (Januvia) 100 mg PO DAILY [facility] Last Admin: 09/18/16 09:34 Dose: 100 mg Trazodone HCl (Desyrel) 50 mg PO HS [facility] Last Admin: 09/18/16 21:00 Dose: 50 mg - Labs Labs: 09/18/16 06:25 09/18/16 06:25
[2016-09-19] MEDS: (Novolog) Insulin Aspart, Recombinant 100 u/ml 10 ml vial SC SCH ×3 (08:14→16:45)
[2016-09-19] MEDS: (Novolin R) Insulin Human Regular 100 units/ml vial SC SCH ×4 (08:17→21:35)
[2016-09-19 08:38] LABS: BASO # 0.1 K/uL (0.0-0.2); EOS # 0.2 K/uL (0.0-0.7); EOS % 3.4 % (0.0-4.0); HEMATOCRIT 40.9 % (34.0-47.0); LYMPH # 1.6 K/uL (1.0-4.3); LYMPH % 22.5 % (20.0-40.0); MEAN CELL VOLUME 91.9 fL (81.0-99.0); MEAN CORPUSCULAR HEMOGLOBIN 30.6 pg (27.0-31.0); MEAN CORPUSCULAR HGB CONC 33.2 g/dL (33.0-37.0); MEAN PLATELET VOLUME 8.6 fL (7.2-11.7); MONO # 0.7 K/uL (0.0-0.8); RED CELL DISTRIBUTION WIDTH 13.3 % (11.5-14.5); WHITE BLOOD COUNT 7.1 K/uL (4.8-10.8)
[2016-09-19 08:53] LABS: POTASSIUM 4.3 mmol/L (3.6-5.2)
[2016-09-19 08:55] LABS: ALB/GLOB RATIO 0.9 (1.0-2.1); BILIRUBIN,TOTAL 0.5 mg/dL (0.2-1.3); PHOSPHOROUS 4.4 mg/dL (2.5-4.5); TOTAL PROTEIN 6.5 g/dL (6.3-8.3)
[2016-09-19 08:56] LABS: CALCIUM 8.5 mg/dl (8.6-10.4); MAGNESIUM 1.8 mg/dL (1.6-2.3)
[2016-09-19] MEDS: INVOKANA 300 MG PO SCH (09:53)
[2016-09-19] MEDS: guaiFENesin 600 mg ER Tab PO SCH ×2 (09:53→17:08)
[2016-09-19] MEDS: Saccharomyces Boulardi 250 mg Cap PO SCH ×2 (09:57→17:08)
[2016-09-19] MEDS: Insulin Detemir 100 units/ml Vial (Levemir) SC SCH ×2 (10:06→21:35)
[2016-09-19] MEDS: Clotrimazole 1% Cream(30 gm) TOP SCH ×2 (10:30→17:11)
[2016-09-19] MEDS ORDERED: POLYETHYLENE GLYCOL 3350 17 GM/Dose PACKET PO ONE (11:32)
--- NOTE | 2016-09-19 16:11 | CP.PCM.PN ---
Subjective - Date & Time of Evaluation Date of Evaluation: 09/19/16 Time of Evaluation: 16:00 - Subjective Subjective: feeling much better denies any complaints Objective - Vital Signs/Intake and Output Vital Signs (last 24 hours): Temp Pulse Resp BP Pulse Ox 97.9 F 84 23 160/92 H 94 L 09/19/16 08:00 09/19/16 08:00 09/19/16 08:00 09/19/16 08:00 09/19/16 08:00 Intake and Output: 09/19/16 09/19/16 06:59 18:59 Intake Total 440 240 Output Total 1200 1000 Balance -760 -760 - Medications Medications: Current Medications Alprazolam (Xanax) 1 mg PO TID PRN PRN Reason: Anxiety Last Admin: 09/18/16 21:00 Dose: 1 mg Aspirin (Ecotrin) 81 mg PO DAILY [facility] Last Admin: 09/19/16 09:57 Dose: 81 mg Ciprofloxacin (Cipro) 500 mg PO BID [facility] Clopidogrel Bisulfate (Plavix) 75 mg PO DAILY [facility] Last Admin: 09/19/16 09:57 Dose: 75 mg Clotrimazole (Lotrimin 1%) 60 gm TOP BID [facility] Last Admin: 09/19/16 10:30 Dose: 1 applic Diphenoxylate HCl/Atropine (Lomotil 0.025-2.5 Mg Tablet) 1 tab PO BID PRN PRN Reason: Diarrhea Docusate Sodium (Colace) 100 mg PO DAILY [facility] Last Admin: 09/19/16 10:02 Dose: 100 mg Famotidine (Pepcid) 20 mg PO BID [facility] Last Admin: 09/19/16 09:56 Dose: 20 mg Fluoxetine HCl (Prozac) 40 mg PO DAILY [facility] Last Admin: 09/19/16 09:53 Dose: 40 mg Gabapentin (Neurontin) 100 mg PO TID [facility] Last Admin: 09/19/16 13:44 Dose: 100 mg Guaifenesin (Mucinex La) 600 mg PO BID [facility] Last Admin: 09/19/16 09:53 Dose: 600 mg Heparin Sodium (Porcine) (Heparin) 5,000 units SC Q8H [facility] Last Admin: 09/19/16 13:51 Dose: 5,000 units Home Med (Patient's Own Medication) 1 tab PO DAILY [facility] Last Admin: 09/19/16 09:53 Dose: 1 tab Hydrochlorothiazide (Hydrodiuril) 25 mg PO DAILY [facility] Last Admin: 09/19/16 09:57 Dose: 25 mg Ciprofloxacin (Cipro 400mg/200ml Dsw) 400 mg in 200 mls @ 133 mls/hr IVPB Q12H [facility] Last Admin: 09/19/16 05:16 Dose: 133 mls/hr Insulin Aspart (Novolog) 10 unit SC TIDAC [facility] Last Admin: 09/19/16 12:32 Dose: 10 unit Insulin Detemir (Levemir) 15 unit SC Q12 [facility] Last Admin: 09/19/16 10:06 Dose: 15 unit Insulin Human Regular (Novolin R) 0 unit SC ACHS [facility] PRN Reason: Protocol Last Admin: 09/19/16 12:31 Dose: 4 unit Losartan Potassium (Cozaar) 100 mg PO DAILY [facility] Last Admin: 09/19/16 09:57 Dose: 100 mg Metformin HCl (Glucophage) 500 mg PO BID [facility] Last Admin: 09/19/16 09:57 Dose: 500 mg Promethazine HCl/Codeine (Phenergan/Codeine Oral Syrup) 5 ml PO Q4 PRN PRN Reason: Cough Last Admin: 09/18/16 20:54 Dose: 5 ml Rosuvastatin Calcium (Crestor) 10 mg PO [facility] Last Admin: 09/18/16 21:00 Dose: 10 mg Saccharomyces Boulardii (Florastor) 250 mg PO BID [facility] Last Admin: 09/19/16 09:57 Dose: 250 mg Sitagliptin Phosphate (Januvia) 100 mg PO DAILY [facility] Last Admin: 09/19/16 10:02 Dose: 100 mg Trazodone HCl (Desyrel) 50 mg PO [facility] Last Admin: 09/18/16 21:00 Dose: 50 mg - Labs Labs: 09/19/16 08:25 09/19/16 08:25 - Constitutional Appears: Well - Head Exam Head Exam: ATRAUMATIC, NORMAL INSPECTION, NORMOCEPHALIC - Eye Exam Eye Exam: EOMI, Normal appearance, PERRL Pupil Exam: NORMAL ACCOMODATION, PERRL - ENT Exam ENT Exam: Mucous Membranes Moist, Normal Exam - Neck Exam Neck Exam: Full ROM, Normal Inspection. absent: Lymphadenopathy - Respiratory Exam Respiratory Exam: Clear to Ausculation Bilateral, NORMAL BREATHING PATTERN - Cardiovascular Exam Cardiovascular Exam: REGULAR RHYTHM, +S1, +S2. absent: Murmur - GI/Abdominal Exam GI & Abdominal Exam: Soft, Normal Bowel Sounds. absent: Tenderness - Rectal Exam Rectal Exam: Deferred - Extremities Exam Extremities Exam: Full ROM, Normal Capillary Refill, Normal Inspection. absent : Joint Swelling, Pedal Edema - Back Exam Back Exam: NORMAL INSPECTION - Neurological Exam Neurological Exam: Alert, Awake, CN II-XII Intact, Normal Gait, Oriented x3 - Psychiatric Exam Psychiatric exam: Normal Affect, Normal Mood - Skin Skin Exam: Dry, Intact, Normal Color, Warm Assessment and Plan (1) Frequent falls Assessment & Plan: etiology 2' to imbalance due to arthritis and preload dependency from UTI improved back to baseline Status: Acute (2) CAD (coronary artery disease) Assessment & Plan: stable enzymes x 3 -ve outpt w/u for ischemia Status: Acute (3) CHF (congestive heart failure), NYHA class I Assessment & Plan: stable compensated echo reviewed cont with GDMT for CAD Status: Acute
--- NOTE | 2016-09-19 16:37 | CP.PCM.DIS ---
<JessicajavierColten - Last Filed: 09/19/16 20:50> Provider - Provider Date of Admission: 09/17/16 18:53 Attending physician: Carlos Gresham MD Primary care physician: Dr. Nathaniel Yates Consults: Cardiology: Dr. Arias Palliative: Jaylan Mehta Time Spent in preparation of Discharge (in minutes): 40 Diagnosis - Discharge Diagnosis (1) CAD (coronary artery disease) Status: Acute Comment: Plavix. ASA. Crestor (2) Frequent falls Status: Acute Comment: see hospital course (3) Hypokalemia Status: Acute Comment: Repleted Hospital Course - Lab Results Lab Results: Most Recent Lab Values WBC 7.1 K/uL (4.8-10.8) 09/19/16 08:25 RBC 4.44 Mil/uL (3.80-5.20) 09/19/16 08:25 Hgb 13.6 g/dL (11.0-16.0) 09/19/16 08:25 Hct 40.9 % (34.0-47.0) 09/19/16 08:25 MCV 91.9 fL (81.0-99.0) 09/19/16 08:25 MCH 30.6 pg (27.0-31.0) 09/19/16 08:25 MCHC 33.2 g/dL (33.0-37.0) 09/19/16 08:25 RDW 13.3 % (11.5-14.5) 09/19/16 08:25 Plt Count 257 K/uL (130-400) 09/19/16 08:25 MPV 8.6 fL (7.2-11.7) 09/19/16 08:25 Neut % (Auto) 63.1 % (50.0-75.0) 09/19/16 08:25 Lymph % (Auto) 22.5 % (20.0-40.0) 09/19/16 08:25 Wilkinson % (Auto) 10.0 % (0.0-10.0) 09/19/16 08:25 Eos % (Auto) 3.4 % (0.0-4.0) 09/19/16 08:25 Baso % (Auto) 1.0 % (0.0-2.0) 09/19/16 08:25 Neut # 4.5 K/uL (1.8-7.0) 09/19/16 08:25 Lymph # 1.6 K/uL (1.0-4.3) 09/19/16 08:25 Wilkinson # 0.7 K/uL (0.0-0.8) 09/19/16 08:25 Eos # 0.2 K/uL (0.0-0.7) 09/19/16 08:25 Baso # 0.1 K/uL (0.0-0.2) 09/19/16 08:25 Sodium 134 mmol/L (132-148) 09/19/16 08:25 Potassium 4.3 mmol/L (3.6-5.2) 09/19/16 08:25 Chloride 97 mmol/L (98-107) L 09/19/16 08:25 Carbon Dioxide 26 mmol/L (22-30) 09/19/16 08:25 Anion Gap 15 (10-20) 09/19/16 08:25 BUN 21 mg/dL (7-17) H 09/19/16 08:25 Creatinine 1.2 MG/DL (0.7-1.2) 09/19/16 08:25 Est GFR ( Amer) 54 09/19/16 08:25 Est GFR (Non-Af Amer) 45 09/19/16 08:25 POC Glucose (mg/dL) 97 mg/dL (65-110) 09/19/16 16:18 Random Glucose 235 mg/dL (65-105) H 09/19/16 08:25 Hemoglobin A1c 12.4 % (4.2-6.5) H 09/17/16 08:04 Calcium 8.5 mg/dl (8.6-10.4) L 09/19/16 08:25 Phosphorus 4.4 mg/dL (2.5-4.5) 09/19/16 08:25 Magnesium 1.8 mg/dL (1.6-2.3) 09/19/16 08:25 Total Bilirubin 0.5 mg/dL (0.2-1.3) 09/19/16 08:25 AST 22 U/L (14-36) 09/19/16 08:25 ALT 21 U/L (9-52) 09/19/16 08:25 Alkaline Phosphatase 76 U/L (38-126) 09/19/16 08:25 Total Creatine Kinase 46 U/L (30-135) 09/17/16 08:04 CK-MB (Mass) 0.80 ng/mL (0.0-3.38) 09/17/16 08:04 Troponin I, Quant < 0.0120 ng/mL (0.00-0.120) 09/17/16 08:04 NT-Pro-B Natriuret Pep 456 pg/mL (0-900) 09/17/16 08:04 Total Protein 6.5 g/dL (6.3-8.3) 09/19/16 08:25 Albumin 3.1 g/dL (3.5-5.0) L 09/19/16 08:25 Globulin 3.4 gm/dL (2.2-3.9) 09/19/16 08:25 Albumin/Globulin Ratio 0.9 (1.0-2.1) L 09/19/16 08:25 Urine Color Yellow (YELLOW) 09/16/16 12:47 Urine Clarity Hazy (Clear) 09/16/16 12:47 Urine pH 7.0 (5.0-8.0) 09/16/16 12:47 Ur Specific [place] 1.003 (1.003-1.030) 09/16/16 12:47 Urine Protein 1+ mg/dL (NEGATIVE) H 09/16/16 12:47 Urine Glucose (UA) 3+ mg/dL (Normal) H 09/16/16 12:47 Urine Ketones Negative mg/dL (NEGATIVE) 09/16/16 12:47 Urine Blood 1+ (NEGATIVE) H 09/16/16 12:47 Urine Nitrate Negative (NEGATIVE) 09/16/16 12:47 Urine Bilirubin Negative (NEGATIVE) 09/16/16 12:47 Urine Urobilinogen Normal mg/dL (0.2-1.0) 09/16/16 12:47 Ur Leukocyte Esterase 3+ Kalpesh/uL (Negative) H 09/16/16 12:47 Urine WBC (Auto) 20 /hpf (0-5) H 09/16/16 12:47 Urine RBC (Auto) 3 /hpf (0-3) 09/16/16 12:47 Ur Squamous Epith Cells 29 /hpf (0-5) H 09/16/16 12:47 Urine Bacteria Few (<OCC) H 09/16/16 12:47 - Hospital Course Hospital Course: Hospital admission: Patient is a 70 year old female with PMHx of anxiety, depression, htn, hld, IBS with diarrhea, DM, CAD who presents to the ED after she fell in her home. Patient woke up this morning, fed her cat, had some water and crackers and took her insulin. Patient uses a wheelchair to ambulate however the wheelchair does not fit in her bedroom so she must use a walker. After she took her insulin she used her walker to get over to her computer. She felt her legs get week and she feel backwards. Patient did not lose consciousness. Patient also says she took Lasix 40 mg PO for the first time this morning. Patient has a medical alert necklace which she used to call EMS. Patient did not feel dizzy at the time of fall. Now patient is anxious because she does not have someone to take care of her cat while she is in the hospital. She says she he has a headache at the back of her head where she fell that she rates a 5/10. Patient has some chest pain bilaterally that she says is worse with deep breathing. Patient admits to getting short of breath with movement. Patient sleeps on 4 pillows at night and admits to being short of breath at bedtime sometimes. Patient denies waking up due to shortness of breath. Patient is incontinent of urine. Patient says it often vaca when she urinates. She also complains of burning/ discomfort in groin. Patient has been feeling nauseous off and on since the ride in the ambulance with no episodes of vomiting. Patient has mild central abdominal pain. Patient admits to leg pain mostly behind her knees which she rates a 6/10 and describes as cramping. She also has swelling in her legs which she says has been there for years. Patient admits to back pain between the shoulder blades that she rates as a 6/10. Patient complains of numbness and tingling in hands and fingers which has been going on for a long time and also says her middle finger on the right often locks. Patient denies dizziness, sore throat, palpitations, cough, diarrhea, constipation. Hospital course: Patient admitted on 7/18/17 for mechanical fall/possible syncopal episode. Orthostatic vitals WNL. All imaging for acute fracture negative, but DDD noted in lumbar spine. CT head negative for bleed. UA done in ED showed UTI and started on cipro IV. Pt had complained of chest pain and workup with JAY/EKG were negative. Dr. Whitfield, Cardiology consulted. Cardio believed etiology may have been due to preload dependency diastolic dysfxn, and ordered ECHO. ECHO showed mild-grade 1 abnormal relaxation. Venous dopplers negative for DVT. With no reproduction of chest pain, and workup negative pt discharged back to [facility]. Pts chronic diseases of T2DM and HTN were managed over her course. For new diabetes regimen to better control blood glucose see end of discharge summary where med reconcilliation listed.. Discharge Exam - Head Exam Head Exam: ATRAUMATIC, NORMAL INSPECTION, NORMOCEPHALIC - Eye Exam Eye Exam: EOMI, PERRL - ENT Exam ENT Exam: Mucous Membranes Moist - Respiratory Exam Respiratory Exam: Clear to PA & Lateral, NORMAL BREATHING PATTERN. absent: Accessory Muscle Use, Respiratory Distress - Cardiovascular Exam Cardiovascular Exam: REGULAR RHYTHM, +S1, +S2 - GI/Abdominal Exam GI & Abdominal Exam: Normal Bowel Sounds, Soft. absent: Tenderness - Exam Additional comments: patel catheter present - Extremities Exam Extremities exam: pedal pulses present Additional comments: swelling in legs decreased from admission - Back Exam Back exam: absent: CVA tenderness (L), CVA tenderness (R) - Neurological Exam Neurological exam: Alert, Oriented x3 - Psychiatric Exam Psychiatric exam: Normal Affect, Normal Mood Additional comments: pt expressing desire to see cat - Skin Skin Exam: Dry, Intact Discharge Plan - Discharge Medications Prescriptions: Ciprofloxacin [Cipro] 500 mg PO BID #6 tab Home Med 300 mg PO DAILY #5 ea - Follow Up Plan Condition: FAIR Disposition: REHAB FACILITY/REHAB UNIT Instructions: Ciprofloxacin (By mouth), Urinary Tract Infection in Women (DC), Hypokalemia (DC), Fall Prevention (DC) Additional Instructions: Pt stable for discharge per Dr. Boswell. Pt should continue taking the following medications listed in the reconcilliation. They are listed below. Pt should make an appointment to see her software quality assurance analyst, Dr. Arias. She can make an appointment at [phone]. She should return to the emergency department if symptoms return or worsen. Medications: Xanax 1mg PO TID PRN Trazadone 50mg HS Fluoxetine 40mg PO DAily Janumet Xr 100/1000mg Invokana 300mg PO Daily Levemir 15 unit SC Q12H Novolog 10 units SC TIDAC Losartan 100mg PO Daily HCTZ 25mg PO Daily Gabapentin 100mg PO TID Colace 100mg PO Daily Lomotil 0.025-2.5 mg tablet PO BID Lipitor 20 mg PO Daily Plavix 75mg PO Daily Aspirin 81mg PO Daily Cipro 500mg PO Tab x 3 days (6 total doses) Florastor 250mg PO BID Clinical Quality Measures - CQM - Heart Failure Ejection Fraction: 40 % or Greater Angiotensin II Receptor Remi Prescribed: Yes <Myate Boswell V - Last Filed: 09/28/16 18:08> Provider - Provider Date of Admission: 09/17/16 18:53 Attending physician: Carlos Gresham MD Hospital Course - Lab Results Lab Results: Most Recent Lab Values WBC 7.1 K/uL (4.8-10.8) 09/19/16 08:25 RBC 4.44 Mil/uL (3.80-5.20) 09/19/16 08:25 Hgb 13.6 g/dL (11.0-16.0) 09/19/16 08:25 Hct 40.9 % (34.0-47.0) 09/19/16 08:25 MCV 91.9 fL (81.0-99.0) 09/19/16 08:25 MCH 30.6 pg (27.0-31.0) 09/19/16 08:25 MCHC 33.2 g/dL (33.0-37.0) 09/19/16 08:25 RDW 13.3 % (11.5-14.5) 09/19/16 08:25 Plt Count 257 K/uL (130-400) 09/19/16 08:25 MPV 8.6 fL (7.2-11.7) 09/19/16 08:25 Neut % (Auto) 63.1 % (50.0-75.0) 09/19/16 08:25 Lymph % (Auto) 22.5 % (20.0-40.0) 09/19/16 08:25 Wilkinson % (Auto) 10.0 % (0.0-10.0) 09/19/16 08:25 Eos % (Auto) 3.4 % (0.0-4.0) 09/19/16 08:25 Baso % (Auto) 1.0 % (0.0-2.0) 09/19/16 08:25 Neut # 4.5 K/uL (1.8-7.0) 09/19/16 08:25 Lymph # 1.6 K/uL (1.0-4.3) 09/19/16 08:25 Wilkinson # 0.7 K/uL (0.0-0.8) 09/19/16 08:25 Eos # 0.2 K/uL (0.0-0.7) 09/19/16 08:25 Baso # 0.1 K/uL (0.0-0.2) 09/19/16 08:25 Sodium 134 mmol/L (132-148) 09/19/16 08:25 Potassium 4.3 mmol/L (3.6-5.2) 09/19/16 08:25 Chloride 97 mmol/L (98-107) L 09/19/16 08:25 Carbon Dioxide 26 mmol/L (22-30) 09/19/16 08:25 Anion Gap 15 (10-20) 09/19/16 08:25 BUN 21 mg/dL (7-17) H 09/19/16 08:25 Creatinine 1.2 MG/DL (0.7-1.2) 09/19/16 08:25 Est GFR ( Amer) 54 09/19/16 08:25 Est GFR (Non-Af Amer) 45 09/19/16 08:25 POC Glucose (mg/dL) 183 mg/dL (65-110) H 09/19/16 20:53 Random Glucose 235 mg/dL (65-105) H 09/19/16 08:25 Hemoglobin A1c 12.4 % (4.2-6.5) H 09/17/16 08:04 Calcium 8.5 mg/dl (8.6-10.4) L 09/19/16 08:25 Phosphorus 4.4 mg/dL (2.5-4.5) 09/19/16 08:25 Magnesium 1.8 mg/dL (1.6-2.3) 09/19/16 08:25 Total Bilirubin 0.5 mg/dL (0.2-1.3) 09/19/16 08:25 AST 22 U/L (14-36) 09/19/16 08:25 ALT 21 U/L (9-52) 09/19/16 08:25 Alkaline Phosphatase 76 U/L (38-126) 09/19/16 08:25 Total Creatine Kinase 46 U/L (30-135) 09/17/16 08:04 CK-MB (Mass) 0.80 ng/mL (0.0-3.38) 09/17/16 08:04 Troponin I, Quant < 0.0120 ng/mL (0.00-0.120) 09/17/16 08:04 NT-Pro-B Natriuret Pep 456 pg/mL (0-900) 09/17/16 08:04 Total Protein 6.5 g/dL (6.3-8.3) 09/19/16 08:25 Albumin 3.1 g/dL (3.5-5.0) L 09/19/16 08:25 Globulin 3.4 gm/dL (2.2-3.9) 09/19/16 08:25 Albumin/Globulin Ratio 0.9 (1.0-2.1) L 09/19/16 08:25 Urine Color Yellow (YELLOW) 09/16/16 12:47 Urine Clarity Hazy (Clear) 09/16/16 12:47 Urine pH 7.0 (5.0-8.0) 09/16/16 12:47 Ur Specific [place] 1.003 (1.003-1.030) 09/16/16 12:47 Urine Protein 1+ mg/dL (NEGATIVE) H 09/16/16 12:47 Urine Glucose (UA) 3+ mg/dL (Normal) H 09/16/16 12:47 Urine Ketones Negative mg/dL (NEGATIVE) 09/16/16 12:47 Urine Blood 1+ (NEGATIVE) H 09/16/16 12:47 Urine Nitrate Negative (NEGATIVE) 09/16/16 12:47 Urine Bilirubin Negative (NEGATIVE) 09/16/16 12:47 Urine Urobilinogen Normal mg/dL (0.2-1.0) 09/16/16 12:47 Ur Leukocyte Esterase 3+ Kalpesh/uL (Negative) H 09/16/16 12:47 Urine WBC (Auto) 20 /hpf (0-5) H 09/16/16 12:47 Urine RBC (Auto) 3 /hpf (0-3) 09/16/16 12:47 Ur Squamous Epith Cells 29 /hpf (0-5) H 09/16/16 12:47 Urine Bacteria Few (<OCC) H 09/16/16 12:47 Attending/Attestation - Attestation I have personally seen and examined this patient.: Yes I have fully participated in the care of the patient.: Yes I have reviewed all pertinent clinical information, including history, physical exam and plan: Yes Notes (Text): This is late computer entry for 09/19/16. Patient seen, examined and case discussed with day-time resident. patient seen at bedside. Patient denies acute complaints. Patient's prelim on lower extremity dopplers reveal no DVT. Per case management, bed is available for [facility]. Per cardiology, patient is stable advised to follow-up outpatient. Medications reconciled upon discharge. Discharge instructions include the following: * Pt should make an appointment to see her software quality assurance analyst, Dr. Arias. She can make an appointment at [phone]. * She should return to the emergency department if symptoms return or worsen. Medications: * Xanax 1mg PO TID PRN * Trazadone 50mg HS * Fluoxetine 40mg PO DAily * Janumet Xr 100/1000mg * Invokana 300mg PO Daily * Levemir 15 unit SC Q12H * Novolog 10 units SC TIDAC * Losartan 100mg PO Daily * HCTZ 25mg PO Daily * Gabapentin 100mg PO TID * Colace 100mg PO Daily * Lomotil 0.025-2.5 mg tablet PO BID * Lipitor 20 mg PO Daily * Plavix 75mg PO Daily * Aspirin 81mg PO Daily * Ciprofloxocin 500mg PO Tab x 3 days (6 total doses) * Florastor 250mg PO BID This is a summary of patient's hospitalization. Please see EMR for details. Assessment/Plan 1. s/p Mechanical Fall * On admission: orthostatic check negative: laying flat: BP 183/90 HR 68, sitting up: BP 172/93 HR 64 * monitor bp * Lumbar xray (09/16/16): no acute fracture or spondylolisthesis. Multilevel degenerative disc disease, worse at L5-S1 * Knee xray (09/16/16): no acute displaced fracture or dislocation. Occult fractures cannot be excluded on plain radiographs * Hip Xray (09/16/16): no acute displaced fracture or dislocation. Occult fractures cannot be excluded on plain radiographs. * CT Head (09/16/16): no acute intracranial abnormality. severe chronic microangiopathic changes and moderate age-related global parencymal volume loss. Old lacunar infarctions in bilateral amado radiata * Refer to PT/OT notes under prophylactic care 2. Abnormal UA * Dose of Macrobid given in the ED * Urine culture negative * Abx: Ciprofloxacin 400 IV Q12 hours (active since 09/16/16)-->upon discharge patient to complete 3 days of PO Cipro * Florastor 250mg PO bid 3. Chest Pain * probnp: within normal * ROMIX3 negative * Denies at bedside * Patient has history of CAD, uncontrolled diabetes * Echocardiogram (09/17/16): left ventricle is normal size, normal left ventricular wall thickness, left ventricle is borderline, normal LV segmental wall motion. Mitral regurgitation is mild. Grade-1 abnormal relaxation. * Increase Crestor 10 mg POqHS * Plavix 75mg PO daily * Aspirin 81mg PO daily * Losartan 100mg PO daily * Per cardiology, patient is stable for discharge; follow-up outpatient 4. Lower Extremity Edema * Cardiology (Dr. Arias) consult-->on board * Echocardiogram (09/17/16): left ventricle is normal size, normal left ventricular wall thickness, left ventricle is borderline, normal LV segmental wall motion. Mitral regurgitation is mild. Grade-1 abnormal relaxation. * Pending venous dopplers: prelim read negative 5. Hypokalemia * Monitor and replete * Check CMP and Mg2+ 6. Uncontrolled DM * HgA1C: 12.4 * ISS (high scale) * Neurontin 100 mg PO TID * Metformin 500 mg PO BID * Sitagliptin 100 mg PO daily * Novolog 10 unit SC TIDAC * Levemir 15 unit SC Q12 hours * Patient normally takes a Metformin 1000mg/januvia 100mg XL but is not available in the hospital * Home Medication: Invokana restarted since patient has it available in the hospital 7. Hypertension * Losartan 100 mg PO daily * Start on HCTZ 25mg PO daily * Will continue to monitor 8. Depression/ anxiety * Xanax 1 mg PO TID PRN anxiety-->confirmed with pharmacy by the resident * Prozac 40 mg PO daily->confirmed with pharmacy by the resident * Trazodone 50 mg PO HS->confirmed with pharmacy by the resident 9. CAD with stents * plavix 75 mg PO daily * Start Aspirin 81mg PO daily * Increase Crestor 10 mg POqHS * Echocardiogram (09/17/16): left ventricle is normal size, normal left ventricular wall thickness, left ventricle is borderline, normal LV segmental wall motion. Mitral regurgitation is mild. Grade-1 abnormal relaxation. 10. IBS with diarrhea * Lamotil 1 tab po BID PRN 11. Groin Burning/Discomfort * Clotrimazole cream - apply BID 12. Urinary incontinence * History of * Urine culture (09/17/16): no growth (<1000 CFU/ML) * Ciprofloxcin 400mg IVPB Q 12hours (active since 09/16/16) to cover given abnormal UA, frequency--->upon discharge patient to complete 3 days of PO Ciprofloxcin 13. Cough * Mucinex 600mg PO BID * Phenergan w codeine 5ml PO Q 4hour PRN cough 14. Prophylactic * Pepcid 20 mg PO BID * Plavix 75 mg PO daily * diabetic diet * heparin 5000 units subqhS * Physical therapy eval and treat (09/18): CONTINUE PT, subacute rehab;CLEARED FOR DAILY OOB W/ ASSIST OR USE OF NARCISA MCKAY * Occupational therapy eval and treat (09/17): subacute rehab; Patient was seen for initial eval and bed mobility,supine to sit to stand and transfers,rom to bue and instructions in self rom exs to further improve strength and functional use in ADL * Per social work, [facility] is [facility]
[2016-09-19 18:41] VITALS: BP 161/83; PULSE 83; RESP 20; TEMP 98.8; O2SAT 95
--- NOTE | 2016-09-22 11:08 | VASCLAB ---
PROCEDURE: Lower Extremity Venous Duplex Exam. HISTORY: lower extremity edema PRIORS: None. TECHNIQUE: Bilateral common femoral, femoral, popliteal and posterior tibial, peroneal and great saphenous veins were evaluated. Flow was assessed with color Doppler, compressibility, assessment of phasic flow and augmentation response. Report prepared by Memo Blanco, MUSA, RVT FINDINGS: RIGHT: 1. Common Femoral Vein: 1.1. Compressibility - Fully compressible: Thrombus - None : Flow - Phasic: Augmentation -Normal: Reflux - None. 2. Femoral Vein: 2.1. Compressibility - Fully compressible: Thrombus - None : Flow - Phasic: Augmentation -Normal: Reflux - None. 3. Popliteal Vein: 3.1. Compressibility - Fully compressible: Thrombus - None : Flow - Phasic: Augmentation -Normal: Reflux - None. 4. Posterior Tibial Vein: 4.1. Compressibility - Fully compressible: Thrombus - None: Flow - Phasic: Augmentation -Normal: Reflux - None. 5. Peroneal Vein: 5.1. Compressibility - Fully compressible: Thrombus - None: Flow - Phasic: Augmentation -Normal: Reflux - None. 6. Great Saphenous Vein: 6.1. Compressibility - Fully compressible: Thrombus - None: Flow - Phasic: Augmentation - Normal: Reflux - None. LEFT: 1. Common Femoral Vein: 1.1. Compressibility - Fully compressible: Thrombus - None: Flow - Phasic: Augmentation -Normal: Reflux - None. 2. Femoral Vein: 2.1. Compressibility - Fully compressible: Thrombus - None: Flow - Phasic: Augmentation -Normal: Reflux - None. 3. Popliteal Vein: 3.1. Compressibility - Fully compressible: Thrombus - None : Flow - Phasic: Augmentation -Normal: Reflux - None. 4. Posterior Tibial Vein: 4.1. Compressibility - Fully compressible: Thrombus - None: Flow - Phasic: Augmentation -Normal: Reflux - None. 5. Peroneal Vein: 5.1. Compressibility - Fully compressible: Thrombus - None: Flow - Phasic: Augmentation -Normal: Reflux - None. 6. Great Saphenous Vein: 6.1. Compressibility - Fully compressible: Thrombus - None: Flow - Phasic: Augmentation - Normal: Reflux - None. OTHER FINDINGS: Right: None significant. Left: None significant. IMPRESSION: Right: No evidence of deep or superficial vein thrombosis of the right lower extremity. Normal valve function noted of the right side. Left: No evidence of deep or superficial vein thrombosis of the left lower extremity. Normal valve function noted of the left side.
--- NOTE | 2016-09-28 18:58 | CARD ---
APPROVED REPORT EKG Measurement Heart [id number] OK 166P58 [id number] <Conclusion> Normal sinus rhythm Normal ECG
--- NOTE | 2016-09-28 18:58 | CARD ---
APPROVED REPORT EKG Measurement Heart [id number] 160P58 [id number] <Conclusion> Normal sinus rhythm Normal ECG
== END 2016-09-19 22:15 ==
LOC: C.ER 10:35 → C.9E 15:24 → C.3T 17:11 → INTOOBSV 09-17 18:53 → OBSVTOIN 09-17 18:53
PROVIDERS: ADMIT Internal Medicine; ATTEND Internal Medicine
DX: M51.37 Other intervertebral disc degeneration, lumbosacral region (principal); I11.0 Hypertensive heart disease with heart failure; I50.30 Unspecified diastolic (congestive) heart failure; N39.0 Urinary tract infection, site not specified; L03.90 Cellulitis, unspecified; E11.65 Type 2 diabetes mellitus with hyperglycemia; R55 Syncope and collapse; E87.6 Hypokalemia; E78.5 Hyperlipidemia, unspecified; E78.00 Pure hypercholesterolemia, unspecified; F32.9 Major depressive disorder, single episode, unspecified; F41.9 Anxiety disorder, unspecified; I25.10 Atherosclerotic heart disease of native coronary artery without angina pectoris; R29.6 Repeated falls; R32 Unspecified urinary incontinence; W19.XXXA Unspecified fall, initial encounter; Y92.009 Unspecified place in unspecified non-institutional (private) residence as the place of occurrence of the external cause; Z79.4 Long term (current) use of insulin; Z79.84 Long term (current) use of oral hypoglycemic drugs; Z79.899 Other long term (current) drug therapy; Z85.42 Personal history of malignant neoplasm of other parts of uterus; Z86.73 Personal history of transient ischemic attack (TIA), and cerebral infarction without residual deficits; Z87.891 Personal history of nicotine dependence; Z95.5 Presence of coronary angioplasty implant and graft; Z23 Encounter for immunization
CPT/HCPCS: 36415; 70450; 72100; 73502; 73562; 80048; 80053; 81001; 82948; 83036; 83735; 83880; 84100; 84484; 85025; 85027; 87086; 90732; 93005; 93306; 93970; 96372; 96374; 97110; 97112; 97116; 97162; 97166; 97530; 99285; G0009; G0378; G8978; G8979; G8987; G8988; J0744; J1644; J1885

== ENCOUNTER 2016-11-14 13:47 | Inpatient (IN) | payer MEDICARE, MEDICAID ==
[2016-11-14 15:54] LABS: BASO # 0.1 K/uL (0.0-0.2); BASO % 0.9 % (0.0-2.0); EOS # 0.1 K/uL (0.0-0.7); EOS % 1.4 % (0.0-4.0); HEMATOCRIT 41.8 % (34.0-47.0); LYMPH # 1.8 K/uL (1.0-4.3); LYMPH % 25.9 % (20.0-40.0); MEAN CORPUSCULAR HEMOGLOBIN 31.1 pg (27.0-31.0); MEAN CORPUSCULAR HGB CONC 33.8 g/dL (33.0-37.0); MEAN PLATELET VOLUME 8.3 fL (7.2-11.7); MONO # 0.6 K/uL (0.0-0.8); MONO % 9.3 % (0.0-10.0); NRBC % 0.1 % (0.0-2.0); RED CELL DISTRIBUTION WIDTH 12.7 % (11.5-14.5); WHITE BLOOD COUNT 6.9 K/uL (4.8-10.8)
--- NOTE | 2016-11-14 15:56 | RAD ---
PROCEDURE: Bilateral Knee Radiographs. HISTORY: Pain s/p fall COMPARISON: Right knee 09/16/2016 FINDINGS: BONES: Right Knee: No acute fracture. Left Knee: No acute fracture. JOINTS: Right Knee: Severe lateral and patellofemoral osteoarthritis. Mild medial osteoarthritis. No articular erosion. Left knee: Severe patellofemoral osteoarthritis and moderate lateral osteoarthritis. Medial compartment preserved. SOFT TISSUES: Right Knee: Normal. Left Knee: Normal. JOINT EFFUSION: Right Knee: None. Left Knee: None. OTHER FINDINGS: None. IMPRESSION: Bilateral lateral and patellofemoral osteoarthritis. Mild medial right osteoarthritis. No acute fracture.
--- NOTE | 2016-11-14 16:00 | RAD ---
PROCEDURE: Radiographs of the Lumbar Spine. HISTORY: Pain s/p fall COMPARISON: Lumbar spine 09/16/2016. FINDINGS: BONES: A mild dextroscoliotic lumbar spur deformity appears stable with a somewhat straightened lumbar curvature again evident. No definite interval fracture or spondylolisthesis is noted. Multilevel thoracolumbar spondylosis concentrated inferior lumbar and visualized inferior thoracic levels. No suspicious lytic or blastic change multilevel facet arthropathy is reiterated as well as incidental bilateral sacroiliac joint degenerative changes. Instill note is made of surgical clips in the right upper quadrant abdomen once again. DISC SPACES: As above. OTHER FINDINGS: None. IMPRESSION: Stable multilevel lumbar spondylosis including a mild dextroscoliotic lumbar spinal deformity. No definitive acute fracture or spondylolisthesis is appreciable.
[2016-11-14 16:02] LABS: ALKALINE PHOSPHATASE 78 U/L (38-126); ALT/SGPT 18 U/L (9-52); AST/SGOT 19 U/L (14-36); BILIRUBIN,TOTAL 0.5 mg/dL (0.2-1.3); BLOOD UREA NITROGEN 19 mg/dL (7-17); CALCIUM 9.3 mg/dl (8.6-10.4); CARBON DIOXIDE 26 mmol/L (22-30); CHLORIDE 97 mmol/L (98-107); GFR AFRICAN-AMERICAN > 60; GLUCOSE,RANDOM 211 mg/dL (65-105); INR 0.9; MAGNESIUM 1.8 mg/dL (1.6-2.3); POTASSIUM 3.5 mmol/L (3.6-5.2); SODIUM 139 mmol/L (132-148); TOTAL PROTEIN 7.3 g/dL (6.3-8.3)
--- NOTE | 2016-11-14 16:06 | RAD ---
PROCEDURE: Radiographs of the pelvis and bilateral hips HISTORY: Pain s/p fall COMPARISON: None. FINDINGS: BONES: There is diffuse osteopenia suggesting osteoporosis throughout the pelvis and bilateral hips. No suspicious lytic or blastic changes seen however there is no fracture throughout the pelvic ring with the pubic symphysis intact. Note is made of bowel obscuring the right sacrum at its mid to inferior extent however. . JOINTS: Moderate osteoarthritis is appreciate the bilateral sacroiliac joints manifest by cortical sclerosis with the same pattern identified in the bilateral hip joints which includes limited osteophytes at the acetabuli bilaterally. Pubic symphysis: Unremarkable. SOFT TISSUES: Vascular calcifications are incidentally noted in the mid pelvis bilaterally as well as in the bilateral inguinal and thigh regions medially. OTHER FINDINGS: None. IMPRESSION: Diffuse osteopenia suggests osteoporosis however there is no fracture or dislocation appreciated throughout the pelvic ring or bilateral hip joints. Degenerate changes seen at the bilateral sacroiliac and hip joints as discussed above.
--- NOTE | 2016-11-14 16:24 | RAD ---
HISTORY: Edema COMPARISON: No prior. FINDINGS: LUNGS: No active pulmonary disease. PLEURA: No significant pleural effusion identified, no pneumothorax apparent. CARDIOVASCULAR: Normal. OSSEOUS STRUCTURES: No significant abnormalities. VISUALIZED UPPER ABDOMEN: Normal. OTHER FINDINGS: None. IMPRESSION: No active disease.
[2016-11-14 16:53] LABS: RBC URINE 2 /hpf (0-3); URINE BACTERIA OCC (<OCC); URINE BILIRUBIN NEGATIVE (NEGATIVE); URINE BLOOD 1+ (NEGATIVE); URINE COLOR Straw (YELLOW); URINE GLUCOSE (UA) 3+ mg/dL (Normal); URINE KETONE TRACE mg/dL (NEGATIVE); URINE LEUKOCYTE ESTERASE NEG Leu/uL (Negative); URINE PROTEIN 2+ mg/dL (NEGATIVE); URINE UROBILINOGEN NORMAL mg/dL (0.2-1.0); WBC URINE 3 /hpf (0-5)
--- NOTE | 2016-11-14 17:08 | CT ---
PROCEDURE: CT HEAD WITHOUT CONTRAST. HISTORY: s/p fall, hit head COMPARISON: Unenhanced head CT 09/16/2016. TECHNIQUE: Axial computed tomography images were obtained through the head/brain without intravenous contrast. Radiation dose: Total exam DLP = 989 mGy-cm. This CT exam was performed using one or more of the following dose reduction techniques: Automated exposure control, adjustment of the mA and/or kV according to patient size, and/or use of iterative reconstruction technique. FINDINGS: HEMORRHAGE: No definite intracranial hemorrhage appreciate greater probable calcified granuloma seen the subcortical mid right frontal white matter. BRAIN: Stable age related neuro degenerate changes are identified manifest by diffuse cerebral atrophy chronic microangiopathy. No mass effect or extra-axial fluid collection is identified. Midline brain anatomy appears diffusely unremarkable a chronic lacune is questioned at the left centrum semiovale superiorly. VENTRICLES: Unremarkable. No hydrocephalus. CALVARIUM: Unremarkable. PARANASAL SINUSES: Unremarkable as visualized. No significant inflammatory changes. MASTOID AIR CELLS: Unremarkable as visualized. No inflammatory changes. OTHER FINDINGS: None. IMPRESSION: Stable unenhanced head CT with no intracranial hemorrhage or definite fracture appreciable. Tip age related neuro degenerate changes are reiterated this examination. A small granulomas seen partially calcified at the right frontal subcortical white matter once again.
--- NOTE | 2016-11-14 18:17 | C.PDOC ---
History Of Present Illness Pt c/o frequent falls at home. She fell again today and hit her head. - HPI Time Seen by Provider: 11/14/16 14:19 Chief Complaint (Nursing): Trauma History Per: Patient Injury Occurred (Timing): Just Before Arrival Location Of Injury: Right: Hip, Knee, Left: Hip, Knee, Posterior: Back (Lower), Head Severity: Moderate Additional History Per: Prior Records Past Medical History Reviewed: Historical Data, Nursing Documentation, Vital Signs Vital Signs: Last Vital Signs Temp 97.9 F 11/14/16 17:05 Pulse 71 11/14/16 17:05 Resp 20 11/14/16 17:05 BP 196/99 H 11/14/16 17:05 Pulse Ox 99 11/14/16 17:05 - Medical History PMH: Anxiety, Depression, Diabetes, HTN, Hypercholesterolemia, Peripheral Edema Surgical History: Cholecystectomy (1975), Coronary Stent Family History: States: Unknown Family Hx - Social History Hx Tobacco Use: No Hx Alcohol Use: No Hx Substance Use: No - Immunization History Hx Tetanus Toxoid Vaccination: No Hx Influenza Vaccination: No Hx Pneumococcal Vaccination: No Review Of Systems Except As Marked, All Systems Reviewed And Found Negative. Constitutional: Positive for: Weakness. Negative for: Fever Cardiovascular: Negative for: Chest Pain Respiratory: Negative for: Shortness of Breath Genitourinary: Positive for: Incontinence, Rash Musculoskeletal: Positive for: Leg Pain Neurological: Positive for: Headache. Negative for: Numbness, Seizures, Altered Mental Status Physical Exam - Physical Exam Appears: No Acute Distress, Chronically Ill Skin: Warm, Dry Head: Other (Occipital contusion) Eye(s): bilateral: PERRL, EOMI Neck: Normal ROM, No Midline Cervical Tenderness, No Step Off Deformity, Supple Chest: Symmetrical, No Deformity Cardiovascular: Rhythm Regular Respiratory: Normal Breath Sounds, No Accessory Muscle Use Gastrointestinal/Abdominal: Soft, No Tenderness Back: No CVA Tenderness, Vertebral Tenderness (lumbar) Pelvic: Other (Rash on genital area, probably fungal) Extremity: Normal ROM, Tenderness (nonspecific b/l knees and hips), Pedal Edema (b/l), No Deformity, Other (left foot toe amputations) Neurological/Psych: Oriented x3, Normal Motor, Normal Sensation Gait: Unable To Assess ED Course And Treatment - Laboratory Results Result Diagrams: 11/14/16 15:40 11/14/16 15:40 Lab Interpretation: No Acute Changes O2 Sat by Pulse Oximetry: 99 Pulse Ox Interpretation: Normal - Radiology CXR: Viewed By Me, Read By Radiologist CXR Interpretation: Yes: No Acute Disease - Other Rad Knee x-rays X-Ray: Viewed By Me, Read By Radiologist Interpretation: IMPRESSION: Bilateral lateral and patellofemoral osteoarthritis. Mild medial right osteoarthritis. No acute fracture. X-ray of hips X-Ray: Viewed By Me, Read By Radiologist Interpretation: IMPRESSION: Diffuse osteopenia suggests osteoporosis however there is no fracture or dislocation appreciated throughout the pelvic ring or bilateral hip joints. Degenerate changes seen at the bilateral sacroiliac and hip joints as discussed above. LS spine x-rays X-Ray: Viewed By Me, Read By Radiologist Interpretation: IMPRESSION: Stable multilevel lumbar spondylosis including a mild dextroscoliotic lumbar spinal deformity. No definitive acute fracture or spondylolisthesis is appreciable. - CT Scan/US Head CT Other Rad Studies (CT/US): Read By Radiologist, Radiology Report Reviewed CT/US Interpretation: IMPRESSION: Stable unenhanced head CT with no intracranial hemorrhage or definite fracture appreciable. Tip age related neuro degenerate changes are reiterated this examination. A small granulomas seen partially calcified at the right frontal subcortical white matter once again. Disposition Discussed With : Mayte Boswell Comment: She accepted pt on hospitalist service. Doctor Will See Patient In The: Hospital Counseled Patient/Family Regarding: Studies Performed, Diagnosis - Disposition Disposition: HOSPITALIZED Disposition Time: 18:30 Condition: FAIR - Clinical Impression Clinical Impression: Frequent falls, Physical deconditioning
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
[2016-11-15] MEDS ORDERED: Potassium Chloride 20 mEq ER Tab PO ONE ×2 (00:23→01:45)
[2016-11-15] MEDS: (Novolin R) Insulin Human Regular 100 units/ml vial SC SCH ×4 (08:23→22:00)
[2016-11-15] MEDS: Enoxaparin 40 mg Syringe SC SCH (10:31)
--- NOTE | 2016-11-15 16:23 | CP.PCM.PN ---
<Santosh Nguyễn - Last Filed: 11/15/16 16:24> Subjective - Date & Time of Evaluation Date of Evaluation: 11/15/16 Time of Evaluation: 16:15 - Subjective Subjective: Progress note. Attending: Dr. Boswell Pt seen and examined at bedside. Complaining of some head pain, left shoulder pain, leg pain. Is developing rash, will give nystatin. No fevers, chills, vomiting, diarrhea, dizziness, syncope. Objective - Vital Signs/Intake and Output Vital Signs (last 24 hours): Temp Pulse Resp BP Pulse Ox 98 F 75 20 143/80 95 11/15/16 15:46 11/15/16 15:46 11/15/16 15:46 11/15/16 15:46 11/15/16 15:46 Intake and Output: 11/15/16 11/15/16 06:59 18:59 Intake Total 480 Output Total 1999 1700 Balance -2000 -1220 - Medications Medications: Current Medications Acetaminophen (Tylenol 325mg Tab) 650 mg PO Q6 PRN PRN Reason: Pain, severe (8-10) Last Admin: 11/15/16 09:10 Dose: 650 mg Alprazolam (Xanax) 1 mg PO DAILY PRN PRN Reason: Anxiety Last Admin: 11/15/16 02:40 Dose: 1 mg Amlodipine Besylate (Norvasc) 2.5 mg PO DAILY [facility] Last Admin: 11/15/16 10:31 Dose: 2.5 mg Clopidogrel Bisulfate (Plavix) 75 mg PO DAILY [facility] Last Admin: 11/15/16 10:31 Dose: 75 mg Enoxaparin Sodium (Lovenox) 40 mg SC DAILY [facility] Last Admin: 11/15/16 10:31 Dose: 40 mg Fluoxetine HCl (Prozac) 40 mg PO DAILY [facility] Last Admin: 11/15/16 10:31 Dose: 40 mg Furosemide (Lasix) 40 mg PO DAILY [facility] Last Admin: 11/15/16 10:31 Dose: 40 mg Gabapentin (Neurontin) 100 mg PO TID [facility] Last Admin: 11/15/16 14:02 Dose: 100 mg Hydrochlorothiazide (Hydrodiuril) 25 mg PO DAILY [facility] Last Admin: 11/15/16 10:30 Dose: 25 mg Insulin Human Regular (Novolin R) 0 unit SC ACHS [facility] PRN Reason: Protocol Last Admin: 11/15/16 12:25 Dose: 8 unit Losartan Potassium (Cozaar) 100 mg PO DAILY [facility] Last Admin: 11/15/16 10:31 Dose: 100 mg Nystatin (Nystop Topical Powder) 1 applic TOP BID [facility] Rosuvastatin Calcium (Crestor) 10 mg PO HS [facility] Trazodone HCl (Desyrel) 50 mg PO HS [facility] - Labs Labs: PT 10.4 SECONDS (9.7-12.2) 11/14/16 15:40 INR 0.9 11/14/16 15:40 APTT 29 SECONDS (21-34) 11/14/16 15:40 - Constitutional Appears: Non-toxic, No Acute Distress - Head Exam Head Exam: ATRAUMATIC - Eye Exam Eye Exam: EOMI - ENT Exam ENT Exam: Mucous Membranes Moist - Neck Exam Neck Exam: Full ROM, Normal Inspection - Respiratory Exam Respiratory Exam: NORMAL BREATHING PATTERN. absent: Respiratory Distress - Cardiovascular Exam Cardiovascular Exam: +S1, +S2 - GI/Abdominal Exam GI & Abdominal Exam: Soft, Normal Bowel Sounds. absent: Tenderness - Extremities Exam Extremities Exam: Full ROM, Normal Inspection - Neurological Exam Neurological Exam: Alert, Awake, Oriented x3 - Psychiatric Exam Psychiatric exam: Normal Affect, Normal Mood - Skin Additional comments: fungal rash in groin Assessment and Plan - Assessment and Plan (Free Text) Assessment: 1. Mechanical Fall Case Management for possible rehab placement Head CT: stable unenhanced head CT with no intracranial hemorrhage or definite fracture appreciable. Knee X-ray: Bilateral and patellofemoral osteoarthritis. Mild medial right osteoarthritis. No acute fracture. Hip/Pelvis X-ray: Diffuse osteopenia suggests osteoporosis however there is no fracture or dislocation appreciated throughout the pelvic ring or bilateral hip joints. Degeneration changes seen at the bilateral sacroiliac and hip joints. Lumbar X-ray: Stable multilevel lumbar spondylosis including a mild dextroscoliotic spondylolisthesis is appreciable. Chest X-ray: No active disease ordered left shoulder x ray. will f/u 2. Hypokalemia 20 Kdur given f/u cmp 3. DM HgA1C (09/17/16): 12.4 ISS (high scale) Neurontin 100 mg PO TID accuchecks diabetic diet 4.) HTN Losartan 100 mg PO daily Lasix 40mg PO daily 25mg HTZ PO daily 5. Depression/ anxiety Xanax 1 mg PO TID PRN Prozac 40 mg PO daily Trazodone 50 mg PO HS 6. History of CAD plavix 75 mg PO daily ECHO (09/16/16): EF 50%; the left ventricle is normal size. There is normal left ventricular wall thickness. Left ventricle is boderline. There is normal LV segmental wall motion. Transmitral doppler chicho pattern is Grade I-abnormal relaxation pattern. Mitral regurgitation is mild. 7. Prophylactic Pepcid 20 mg PO BID Plavix 75 mg PO daily PT/OT discussed with Dr. Boswell <Mayte Boswell V - Last Filed: 11/21/16 16:19> Objective - Vital Signs/Intake and Output Vital Signs (last 24 hours): Temp Pulse Resp BP Pulse Ox 98 F 70 20 110/76 96 11/21/16 08:52 11/21/16 08:52 11/21/16 08:52 11/21/16 08:52 11/21/16 08:52 Intake and Output: 11/21/16 11/21/16 06:59 18:59 Intake Total 1365 Balance 1365 - Medications Medications: Current Medications Acetaminophen (Tylenol 325mg Tab) 650 mg PO Q6 PRN PRN Reason: Pain, severe (8-10) Last Admin: 11/16/16 10:09 Dose: 650 mg Alprazolam (Xanax) 1 mg PO TID PRN PRN Reason: Anxiety Last Admin: 11/20/16 10:35 Dose: 1 mg Amlodipine Besylate (Norvasc) 10 mg PO DAILY [facility] Last Admin: 11/21/16 09:56 Dose: 10 mg Betamethasone/Clotrimazole (Lotrisone) 0 gm TOP BID [facility] Last Admin: 11/21/16 09:58 Dose: 1 applic Clopidogrel Bisulfate (Plavix) 75 mg PO DAILY [facility] Last Admin: 11/21/16 09:56 Dose: 75 mg Enoxaparin Sodium (Lovenox) 40 mg SC DAILY [facility] Last Admin: 11/21/16 09:56 Dose: 40 mg Fluoxetine HCl (Prozac) 40 mg PO DAILY [facility] Last Admin: 11/21/16 09:56 Dose: 40 mg Gabapentin (Neurontin) 100 mg PO TID [facility] Last Admin: 11/21/16 14:26 Dose: 100 mg Aztreonam 1 gm/ Sodium (Chloride) 100 mls @ 200 mls/hr IVPB Q8H [facility] Last Admin: 11/21/16 10:59 Dose: 200 mls/hr Sodium Chloride (Sodium Chloride 0.9%) 1,000 mls @ 65 mls/hr IV .[id number] [facility] Last Admin: 11/21/16 06:31 Dose: 65 mls/hr Linezolid (Zyvox 600mg/300ml D5w) 600 mg in 300 mls @ 200 mls/hr IVPB Q12 [facility] Last Admin: 11/21/16 10:06 Dose: 200 mls/hr Insulin Aspart (Novolog) 0 unit SC ACHS [facility] PRN Reason: Protocol Last Admin: 11/21/16 12:23 Dose: Not Given Insulin Aspart (Novolog) 16 unit SC AC [facility] Last Admin: 11/21/16 12:23 Dose: 16 unit Insulin Glargine (Lantus) 60 unit SC HS [facility] Losartan Potassium (Cozaar) 100 mg PO DAILY [facility] Last Admin: 11/20/16 10:36 Dose: 100 mg Potassium Chloride (Potassium Chloride Oral Soln) 20 meq PO DAILY [facility] Last Admin: 11/21/16 10:06 Dose: 20 meq Rosuvastatin Calcium (Crestor) 10 mg PO [facility] Last Admin: 11/20/16 21:45 Dose: 10 mg Saccharomyces Boulardii (Florastor) 250 mg PO BID [facility] Last Admin: 11/21/16 09:56 Dose: 250 mg Trazodone HCl (Desyrel) 50 mg PO [facility] Last Admin: 11/20/16 21:49 Dose: 50 mg - Labs Labs: 11/21/16 08:41 11/21/16 08:41 PT 10.4 SECONDS (9.7-12.2) 11/14/16 15:40 INR 0.9 11/14/16 15:40 APTT 29 SECONDS (21-34) 11/14/16 15:40 Attending/Attestation - Attestation I have personally seen and examined this patient.: Yes I have fully participated in the care of the patient.: Yes I have reviewed all pertinent clinical information, including history, physical exam and plan: Yes Notes (Text): This is late computer entry for 11/15/16. Patient seen, examined, and case discussed with day-time resident. Patient is status post mechanical fall. I am familiar with patient was last admission for similar occurrence. Reviewed patient's imaging-->patient has no acute fractures; ordered for left shoulder xray given she reports pain there r/o fracture Patient has red erythematous rash within intrigenous folds-->start Nystatin powder Assessment/Plan 1. s/p Mechanical Fall * Head CT (11/14/16): stable unenhanced head CT with no intracranial hemorrhage or definite fracture appreciable * Knee xray (11/14/16): bilateral lateral and patellofemoral osteoarthritis. Mild Medial right osteoarthritis. * Hip/pelvis xray (11/14/16): diffuse osteopenia suggests osteoporosis however there is no fracture or dislocation appreciated throughout the pevlic ring or bilateral hip joints. Degenerate changes seen at the bilateral sacroiliac and hip joints * Lumbar xray (11/14/16): stable multilevel lumbar spondylosis including a mild dextroscoliotic lumbar spinal deformity * Chest xray (11/14/16): no active disease * Left shoulder xray (11/15/16): no evidence of acute fracture or dislocation * PT eval * OT eval * Case management referral for subacute rehab 2. Hypokalemia * Monitor and replete * Check CMP and Mg2+ 3. Uncontrolled DM * HgA1C: 12.4 (09/17/16) * ISS (high scale) * Neurontin 100 mg PO TID * Patient normally takes a Metformin 1000mg/januvia 100mg XL but is not available in the hospital * Home Medication: held Invokana on admission 4. Lower Extremity Edema * Echocardiogram (09/17/16): left ventricle is normal size, normal left ventricular wall thickness, left ventricle is borderline, normal LV segmental wall motion. Mitral regurgitation is mild. Grade-1 abnormal relaxation. * Non-pitting 5. Hypertension * Losartan 100 mg PO daily * HCTZ 25mg Po daily * Monitor vital signs 6. Depression/ anxiety * Xanax 1 mg PO daily PRN-->will need to confirm * Prozac 40 mg PO daily * Trazodone 50 mg PO HS 7. CAD with stents * plavix 75 mg PO daily * Crestor 10 mg POqHS * Echocardiogram (09/17/16): left ventricle is normal size, normal left ventricular wall thickness, left ventricle is borderline, normal LV segmental wall motion. Mitral regurgitation is mild. Grade-1 abnormal relaxation. 8. IBS 9. Groin Rash * Start Nystatin powder 1 topical powder BID 10. Urinary incontinence * History of * Usually wears diapers at home 11. Prophylactic * Lovenox 40mg subqdaily * Plavix 75 mg PO daily * Tylenol 650mg POQ6 PRN pain * PT/OT eval * Case management referral: subacute rehab
[2016-11-15 17:16] LABS: BASO # 0.1 K/uL (0.0-0.2); EOS # 0.1 K/uL (0.0-0.7); EOS % 1.3 % (0.0-4.0); HEMATOCRIT 38.2 % (34.0-47.0); LYMPH # 1.9 K/uL (1.0-4.3); LYMPH % 28.9 % (20.0-40.0); MEAN CELL VOLUME 91.2 fL (81.0-99.0); MEAN CORPUSCULAR HEMOGLOBIN 31.1 pg (27.0-31.0); MEAN CORPUSCULAR HGB CONC 34.1 g/dL (33.0-37.0); MEAN PLATELET VOLUME 8.5 fL (7.2-11.7); MONO # 0.6 K/uL (0.0-0.8); MONO % 9.6 % (0.0-10.0); RED CELL DISTRIBUTION WIDTH 12.4 % (11.5-14.5); WHITE BLOOD COUNT 6.6 K/uL (4.8-10.8)
--- NOTE | 2016-11-15 17:16 | RAD ---
PROCEDURE: Radiographs of the Left Shoulder HISTORY: s/p fall COMPARISON: No prior. FINDINGS: BONES: Diffuse osteopenia noted. . . No fracture. JOINTS: Normal. Glenohumeral and acromioclavicular joints preserved. No osteoarthritis. SOFT TISSUES: Normal. OTHER FINDINGS: None. IMPRESSION: No evidence of acute fracture or dislocation.
[2016-11-15 17:19] LABS: CHLORIDE 96 mmol/L (98-107)
[2016-11-15 17:20] LABS: POTASSIUM 3.5 mmol/L (3.6-5.2); SODIUM 136 mmol/L (132-148)
[2016-11-15 17:22] LABS: AST/SGOT 17 U/L (14-36); BILIRUBIN,TOTAL 0.5 mg/dL (0.2-1.3); CARBON DIOXIDE 27 mmol/L (22-30); GFR AFRICAN-AMERICAN > 60
[2016-11-15 17:23] LABS: ALB/GLOB RATIO 1.1 (1.0-2.1); ALKALINE PHOSPHATASE 66 U/L (38-126); ALT/SGPT 23 U/L (9-52); BLOOD UREA NITROGEN 21 mg/dL (7-17); CALCIUM 8.5 mg/dl (8.6-10.4); GLUCOSE,RANDOM 315 mg/dL (65-105); MAGNESIUM 1.7 mg/dL (1.6-2.3); PHOSPHOROUS 4.1 mg/dL (2.5-4.5); TOTAL PROTEIN 6.8 g/dL (6.3-8.3)
--- NOTE | 2016-11-16 00:37 | CP.PCM.PN ---
<MichaelGraciela NickClinton - Last Filed: 11/16/16 00:35> Subjective - Date & Time of Evaluation Date of Evaluation: 11/16/16 Time of Evaluation: 00:00 - Subjective Subjective: Medicine Progress Note: Patient was seen and examined at bedside. Patient states she is doing okay, she is a bit worried about her cat as it is home alone and trying to figure out who will take feed her cat Liya. She states physical therapy has not come to see her yet today and she is nervous about getting out of bed to the chair without her walker. She states she would like to go to the rehab as that helped her before to get stronger. She states she will think about moving her computer to the living space so she does not have to go to the bedroom as much to prevent future falls. She currently denies shortness of breath, chest pain, nausea or vomiting. Objective - Vital Signs/Intake and Output Vital Signs (last 24 hours): Temp Pulse Resp BP Pulse Ox 98.5 F 71 20 161/76 H 96 11/15/16 23:33 11/15/16 23:33 11/15/16 23:33 11/15/16 23:33 11/15/16 23:33 Intake and Output: 11/15/16 11/16/16 18:59 06:59 Intake Total 480 Output Total 1700 1700 Balance -1220 -1700 - Medications Medications: Current Medications Acetaminophen (Tylenol 325mg Tab) 650 mg PO Q6 PRN PRN Reason: Pain, severe (8-10) Last Admin: 11/15/16 09:10 Dose: 650 mg Alprazolam (Xanax) 1 mg PO DAILY PRN PRN Reason: Anxiety Last Admin: 11/15/16 02:40 Dose: 1 mg Amlodipine Besylate (Norvasc) 2.5 mg PO DAILY [facility] Last Admin: 11/15/16 10:31 Dose: 2.5 mg Clopidogrel Bisulfate (Plavix) 75 mg PO DAILY [facility] Last Admin: 11/15/16 10:31 Dose: 75 mg Enoxaparin Sodium (Lovenox) 40 mg SC DAILY [facility] Last Admin: 11/15/16 10:31 Dose: 40 mg Fluoxetine HCl (Prozac) 40 mg PO DAILY [facility] Last Admin: 11/15/16 10:31 Dose: 40 mg Furosemide (Lasix) 40 mg PO DAILY [facility] Last Admin: 11/15/16 10:31 Dose: 40 mg Gabapentin (Neurontin) 100 mg PO TID [facility] Last Admin: 11/15/16 18:29 Dose: 100 mg Hydrochlorothiazide (Hydrodiuril) 25 mg PO DAILY [facility] Last Admin: 11/15/16 10:30 Dose: 25 mg Insulin Human Regular (Novolin R) 0 unit SC ACHS [facility] PRN Reason: Protocol Last Admin: 11/15/16 22:00 Dose: Not Given Losartan Potassium (Cozaar) 100 mg PO DAILY [facility] Last Admin: 11/15/16 10:31 Dose: 100 mg Nystatin (Nystop Topical Powder) 1 applic TOP BID [facility] Last Admin: 11/15/16 18:00 Dose: 1 applic Rosuvastatin Calcium (Crestor) 10 mg PO [facility] Last Admin: 11/15/16 21:59 Dose: 10 mg Trazodone HCl (Desyrel) 50 mg PO [facility] Last Admin: 11/15/16 21:59 Dose: 50 mg - Labs Labs: 11/15/16 16:48 11/15/16 16:48 PT 10.4 SECONDS (9.7-12.2) 11/14/16 15:40 INR 0.9 11/14/16 15:40 APTT 29 SECONDS (21-34) 11/14/16 15:40 - Constitutional Appears: No Acute Distress - Head Exam Head Exam: ATRAUMATIC, NORMAL INSPECTION, NORMOCEPHALIC - Eye Exam Eye Exam: EOMI, Normal appearance, PERRL Pupil Exam: NORMAL ACCOMODATION - ENT Exam ENT Exam: Mucous Membranes Moist - Respiratory Exam Respiratory Exam: Clear to Ausculation Bilateral, NORMAL BREATHING PATTERN. absent: Rales, Rhonchi, Wheezes - Cardiovascular Exam Cardiovascular Exam: REGULAR RHYTHM, RRR, +S1, +S2 - GI/Abdominal Exam GI & Abdominal Exam: Soft, Normal Bowel Sounds. absent: Tenderness - Extremities Exam Extremities Exam: Normal Inspection, Pedal Edema, Tenderness - Neurological Exam Neurological Exam: Alert, Awake, Oriented x3 - Psychiatric Exam Psychiatric exam: Normal Affect, Normal Mood - Skin Skin Exam: Normal Color, Warm Assessment and Plan - Assessment and Plan (Free Text) Assessment: 1. Mechanical Fall Case Management for possible rehab placement Head CT: stable unenhanced head CT with no intracranial hemorrhage or definite fracture appreciable. Knee X-ray: Bilateral and patellofemoral osteoarthritis. Mild medial right osteoarthritis. No acute fracture. Hip/Pelvis X-ray: Diffuse osteopenia suggests osteoporosis however there is no fracture or dislocation appreciated throughout the pelvic ring or bilateral hip joints. Degeneration changes seen at the bilateral sacroiliac and hip joints. Lumbar X-ray: Stable multilevel lumbar spondylosis including a mild dextroscoliotic spondylolisthesis is appreciable. Shoulder X-ray: No evidence of acute fracture or dislocation. Chest X-ray: No active disease ordered left shoulder x ray. will f/u 2. Hypokalemia 20 Kdur given f/u cmp 3. DM HgA1C (09/17/16): 12.4 ISS (high scale) Neurontin 100 mg PO TID accuchecks diabetic diet 4.) HTN Losartan 100 mg PO daily Lasix 40mg PO daily 25mg HTZ PO daily 5. Depression/ anxiety Xanax 1 mg PO TID PRN Prozac 40 mg PO daily Trazodone 50 mg PO HS 6. History of CAD plavix 75 mg PO daily ECHO (09/16/16): EF 50%; the left ventricle is normal size. There is normal left ventricular wall thickness. Left ventricle is boderline. There is normal LV segmental wall motion. Transmitral doppler chicho pattern is Grade I-abnormal relaxation pattern. Mitral regurgitation is mild. 7. Prophylactic Pepcid 20 mg PO BID Plavix 75 mg PO daily PT/OT <Mayte Boswell V - Last Filed: 11/21/16 16:22> Objective - Vital Signs/Intake and Output Vital Signs (last 24 hours): Temp Pulse Resp BP Pulse Ox 98 F 70 20 110/76 96 11/21/16 08:52 11/21/16 08:52 11/21/16 08:52 11/21/16 08:52 11/21/16 08:52 Intake and Output: 11/21/16 11/21/16 06:59 18:59 Intake Total 1365 Balance 1365 - Medications Medications: Current Medications Acetaminophen (Tylenol 325mg Tab) 650 mg PO Q6 PRN PRN Reason: Pain, severe (8-10) Last Admin: 11/16/16 10:09 Dose: 650 mg Alprazolam (Xanax) 1 mg PO TID PRN PRN Reason: Anxiety Last Admin: 11/20/16 10:35 Dose: 1 mg Amlodipine Besylate (Norvasc) 10 mg PO DAILY [facility] Last Admin: 11/21/16 09:56 Dose: 10 mg Betamethasone/Clotrimazole (Lotrisone) 0 gm TOP BID [facility] Last Admin: 11/21/16 09:58 Dose: 1 applic Clopidogrel Bisulfate (Plavix) 75 mg PO DAILY [facility] Last Admin: 11/21/16 09:56 Dose: 75 mg Enoxaparin Sodium (Lovenox) 40 mg SC DAILY [facility] Last Admin: 11/21/16 09:56 Dose: 40 mg Fluoxetine HCl (Prozac) 40 mg PO DAILY [facility] Last Admin: 11/21/16 09:56 Dose: 40 mg Gabapentin (Neurontin) 100 mg PO TID [facility] Last Admin: 11/21/16 14:26 Dose: 100 mg Aztreonam 1 gm/ Sodium (Chloride) 100 mls @ 200 mls/hr IVPB Q8H [facility] Last Admin: 11/21/16 10:59 Dose: 200 mls/hr Sodium Chloride (Sodium Chloride 0.9%) 1,000 mls @ 65 mls/hr IV .[id number] [facility] Last Admin: 11/21/16 06:31 Dose: 65 mls/hr Linezolid (Zyvox 600mg/300ml D5w) 600 mg in 300 mls @ 200 mls/hr IVPB Q12 [facility] Last Admin: 11/21/16 10:06 Dose: 200 mls/hr Insulin Aspart (Novolog) 0 unit SC ACHS [facility] PRN Reason: Protocol Last Admin: 11/21/16 12:23 Dose: Not Given Insulin Aspart (Novolog) 16 unit SC AC [facility] Last Admin: 11/21/16 12:23 Dose: 16 unit Insulin Glargine (Lantus) 60 unit SC HS [facility] Losartan Potassium (Cozaar) 100 mg PO DAILY [facility] Last Admin: 11/20/16 10:36 Dose: 100 mg Potassium Chloride (Potassium Chloride Oral Soln) 20 meq PO DAILY [facility] Last Admin: 11/21/16 10:06 Dose: 20 meq Rosuvastatin Calcium (Crestor) 10 mg PO HS [facility] Last Admin: 11/20/16 21:45 Dose: 10 mg Saccharomyces Boulardii (Florastor) 250 mg PO BID [facility] Last Admin: 11/21/16 09:56 Dose: 250 mg Trazodone HCl (Desyrel) 50 mg PO HS [facility] Last Admin: 11/20/16 21:49 Dose: 50 mg - Labs Labs: 11/21/16 08:41 11/21/16 08:41 PT 10.4 SECONDS (9.7-12.2) 11/14/16 15:40 INR 0.9 11/14/16 15:40 APTT 29 SECONDS (21-34) 11/14/16 15:40 Attending/Attestation - Attestation I have personally seen and examined this patient.: Yes I have fully participated in the care of the patient.: Yes I have reviewed all pertinent clinical information, including history, physical exam and plan: Yes Notes (Text): This is late computer entry for 11/16/16. Patient seen, examined and case discussed with day-time resident. Patient started on NSAID to reduce inflammation for arthritic pain. Awaiting PT/OT eval. Assessment/Plan 1. s/p Mechanical Fall * Head CT (11/14/16): stable unenhanced head CT with no intracranial hemorrhage or definite fracture appreciable * Knee xray (11/14/16): bilateral lateral and patellofemoral osteoarthritis. Mild Medial right osteoarthritis. * Hip/pelvis xray (11/14/16): diffuse osteopenia suggests osteoporosis however there is no fracture or dislocation appreciated throughout the pevlic ring or bilateral hip joints. Degenerate changes seen at the bilateral sacroiliac and hip joints * Lumbar xray (11/14/16): stable multilevel lumbar spondylosis including a mild dextroscoliotic lumbar spinal deformity * Chest xray (11/14/16): no active disease * Left shoulder xray (11/15/16): no evidence of acute fracture or dislocation * PT eval * OT eval * Case management referral for subacute rehab 2. Hypokalemia * Monitor and replete * Check CMP and Mg2+ 3. Uncontrolled DM * HgA1C: 12.4 (09/17/16) * RISS (high scale) * Start lantus 10 units subHS * Neurontin 100 mg PO TID * Patient normally takes a Metformin 1000mg/januvia 100mg XL but is not available in the hospital * Home Medication: held Invokana on admission 4. Lower Extremity Edema * Echocardiogram (09/17/16): left ventricle is normal size, normal left ventricular wall thickness, left ventricle is borderline, normal LV segmental wall motion. Mitral regurgitation is mild. Grade-1 abnormal relaxation. * Non-pitting 5. Hypertension * Losartan 100 mg PO daily * HCTZ 25mg Po daily * Monitor vital signs 6. Depression/ anxiety * Xanax 1 mg PO daily PRN-->will need to confirm * Prozac 40 mg PO daily * Trazodone 50 mg PO HS 7. CAD with stents * plavix 75 mg PO daily * Crestor 10 mg POqHS * Echocardiogram (09/17/16): left ventricle is normal size, normal left ventricular wall thickness, left ventricle is borderline, normal LV segmental wall motion. Mitral regurgitation is mild. Grade-1 abnormal relaxation. 8. IBS 9. Groin Rash * Start Nystatin powder 1 topical powder BID 10. Urinary incontinence * History of * Usually wears diapers at home 11. Prophylactic * Lovenox 40mg subqdaily * Plavix 75 mg PO daily * Tylenol 650mg POQ6 PRN pain * PT/OT eval * Case management referral: subacute rehab
[2016-11-16] MEDS: (Novolin R) Insulin Human Regular 100 units/ml vial SC SCH ×4 (08:17→22:05)
[2016-11-16 08:59] LABS: BASO # 0.1 K/uL (0.0-0.2); BASO % 0.8 % (0.0-2.0); EOS # 0.2 K/uL (0.0-0.7); EOS % 3.3 % (0.0-4.0); LYMPH # 1.5 K/uL (1.0-4.3); LYMPH % 24.1 % (20.0-40.0); MEAN CELL VOLUME 91.7 fL (81.0-99.0); MEAN CORPUSCULAR HEMOGLOBIN 31.2 pg (27.0-31.0); MEAN CORPUSCULAR HGB CONC 34.1 g/dL (33.0-37.0); MEAN PLATELET VOLUME 8.2 fL (7.2-11.7); MONO # 0.6 K/uL (0.0-0.8); MONO % 9.7 % (0.0-10.0); NRBC % 0.1 % (0.0-2.0); RED CELL DISTRIBUTION WIDTH 12.3 % (11.5-14.5); WHITE BLOOD COUNT 6.1 K/uL (4.8-10.8)
[2016-11-16 09:12] LABS: CHLORIDE 98 mmol/L (98-107)
[2016-11-16 09:13] LABS: POTASSIUM 3.5 mmol/L (3.6-5.2); SODIUM 137 mmol/L (132-148)
[2016-11-16 09:15] LABS: ALKALINE PHOSPHATASE 71 U/L (38-126); AST/SGOT 17 U/L (14-36); BILIRUBIN,TOTAL 0.5 mg/dL (0.2-1.3); BLOOD UREA NITROGEN 27 mg/dL (7-17); CARBON DIOXIDE 26 mmol/L (22-30); GFR AFRICAN-AMERICAN > 60; GLUCOSE,RANDOM 336 mg/dL (65-105); TOTAL PROTEIN 6.9 g/dL (6.3-8.3)
[2016-11-16 09:16] LABS: ALT/SGPT 22 U/L (9-52); CALCIUM 8.7 mg/dl (8.6-10.4); MAGNESIUM 1.8 mg/dL (1.6-2.3); PHOSPHOROUS 3.9 mg/dL (2.5-4.5)
[2016-11-16] MEDS ORDERED: Influenza Virus Vaccine 45 mcg/0.5 ml Syr IM ONE (10:00)
[2016-11-16] MEDS: Enoxaparin 40 mg Syringe SC SCH (10:08)
[2016-11-16] MEDS: Potassium Chloride 20 mEq/15 ml LIQ UD PO SCH (10:16)
[2016-11-16] MEDS ORDERED: Potassium Chloride 20 mEq/15 ml LIQ UD PO ONE (11:45)
[2016-11-16] MEDS: Naproxen 550 mg Tab PO SCH (18:00)
[2016-11-16] MEDS ORDERED: Naproxen 550 mg Tab PO SCH (18:00)
[2016-11-16] MEDS ORDERED: (Lantus) Insulin Glargine, Recombinant SC SCH (22:00)
[2016-11-17] MEDS: (Novolin R) Insulin Human Regular 100 units/ml vial SC SCH ×6 (07:35→21:32)
[2016-11-17 07:46] LABS: BASO # 0.1 K/uL (0.0-0.2); BASO % 0.7 % (0.0-2.0); EOS # 0.3 K/uL (0.0-0.7); EOS % 3.7 % (0.0-4.0); HEMATOCRIT 40.8 % (34.0-47.0); LYMPH # 1.4 K/uL (1.0-4.3); LYMPH % 16.4 % (20.0-40.0); MEAN CELL VOLUME 92.5 fL (81.0-99.0); MEAN CORPUSCULAR HEMOGLOBIN 31.4 pg (27.0-31.0); MEAN PLATELET VOLUME 8.5 fL (7.2-11.7); MONO # 0.8 K/uL (0.0-0.8); MONO % 9.7 % (0.0-10.0); RED CELL DISTRIBUTION WIDTH 12.7 % (11.5-14.5); WHITE BLOOD COUNT 8.6 K/uL (4.8-10.8)
[2016-11-17 08:56] LABS: BILIRUBIN,TOTAL 0.4 mg/dL (0.2-1.3); CALCIUM 8.8 mg/dl (8.6-10.4); MAGNESIUM 1.7 mg/dL (1.6-2.3); PHOSPHOROUS 4.3 mg/dL (2.5-4.5); POTASSIUM 3.6 mmol/L (3.6-5.2); TOTAL PROTEIN 6.6 g/dL (6.3-8.3)
[2016-11-17] MEDS: Naproxen 550 mg Tab PO SCH ×2 (10:15→17:22)
[2016-11-17] MEDS ORDERED: (Lantus) Insulin Glargine, Recombinant SC SCH (10:25)
[2016-11-17] MEDS: Aztreonam 1 GM in Sodium Chloride 0.9% 100 ML IVPB SCH ×2 (10:29→18:52)
[2016-11-17] MEDS: Enoxaparin 40 mg Syringe SC SCH (10:50)
[2016-11-17] MEDS: Potassium Chloride 20 mEq/15 ml LIQ UD PO SCH (12:32)
--- NOTE | 2016-11-17 13:36 | CP.PCM.CON ---
History of Present Illness - History of Present Illness History of Present Illness: Palliative consult Requested by Elbert CAMARA Reason: goals of care discussion Patient is a 70 yo female, looking older than stated age, admitted from home, S/ P fall. Patient has Hx of frequent falls at home and her hospitalizations are mostly cased by them. Thus time patient was between the WC and her bed, trying to get onto WC when she lost balance and fell. Patient hit left side of her body including the head. The X Rays of pelvis, left shoulder and left leg and CT scan of head are al negative Fx. On admission, patient was found to be with HbA1C of 12.4. Patient is on Novolog sliding scale and Lantus. PMH: anxiety, depression, DM, HTN, periferal edema Soc. 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 Hx: Depression runs in family ( mother) Review of Systems - Constitutional Constitutional: Frequent Falls - EENT Eyes: Change in Vision Ears: absent: As Per HPI, Decreased Hearing, Ear Discharge, Ear Pain, Tinnitus, Abnormal Hearing, Disequilibrium, Dizziness, Other Nose/Mouth/Throat: absent: As Per HPI, Epistaxis, Nasal Congestion, Nasal Discharge, Nasal Obstruction, Nasal Trauma, Nose Pain, Post Nasal Drip, Sinus Pain, Sinus Pressure, Bleeding Gums, Change in Voice, Dental Pain, Dry Mouth, Dysphagia, Halitosis, Hoarsness, Lip Swelling, Mouth Lesions, Mouth Pain, Odynophagia, Sore Throat, Throat Swelling, Tongue Swelling, Facial Pain, Neck Pain, Neck Mass, Other - Breasts Breasts: absent: As Per HPI, Change in Shape, Mass, Pain, Nipple Discharge, Nipple Inversion, Skin Changes, Swelling, Other - Cardiovascular Cardiovascular: Lightheadedness - Respiratory Respiratory: Dyspnea on Exertion - Gastrointestinal Gastrointestinal: absent: As Per HPI, Abdominal Pain, Belching, Bloating, Change in Bowel Habits, Change in Stool Character, Coffee Ground Emesis, Constipation, Cramping, Diarrhea, Dyspepsia, Dysphagia, Early Satiety, Excessive Flatus, Fecal Incontinence, Heartburn, Hematemesis, Hematochezia, Loose Stools, Melena, Nausea, Odynophagia, Temesmus, Vomiting, Other - Genitourinary Genitourinary: absent: As Per HPI, Change in Urinary Stream, Difficulty Urinating, Dysuria, Flank Pain, Hematuria, Pyuria, Nocturia, Urinary Incontinence, Urinary Frequency, Urinary Hesitance, Urinary Urgency, Voiding Freq/Small Amts, Freq UTI, Hx Renal/Bladder Calculi, Hx /Renal Surgery, Bladder Distension, Other - Reproductive: Female Reproductive:Female: Post Menopausal - Menstruation Menstruation: Post Menopausal - Musculoskeletal Musculoskeletal: Abnormal Gait, Limited Range of Motion, Stiffness - Integumentary Integumentary: absent: As Per HPI, Acne, Alopecia, Bleeding Lesions, Change in Hair, Change in Nails, Change in Pigmentation, Changing Lesions, Dry Skin, Erythema, Furuncle, Hirsutism, Lesions, New Lesions, Non-Healing Lesions, Photosensitivity, Pruritus, Rash, Skin Pain, Skin Ulcer, Sores, Striae, Swelling , Unusual Bruising, Wounds, Jaundice, Other - Neurological Neurological: Frequent Falls, Lack of Coordination, Weakness - Psychiatric Psychiatric: Anxiety, Depression - Endocrine Endocrine: absent: As Per HPI, Change in Body Appearance, Change in Libido, Cold Intolorance, Deepening of Voice, Excessive Sweating, Fatigue, Flushing, Heat Intolorance, Increase in Ring/Shoe/Hat Size, Palpitations, Polydipsia, Polyphagia, Polyuria, Other - Hematologic/Lymphatic Hematologic: absent: As Per HPI, Easy Bleeding, Easy Bruising, Lymphadenopathy, Other Past Patient History - Infectious Disease Hx of Infectious Diseases: None - Past Medical History & Family History Past Medical History?: Yes - Past Social History Smoking Status: Never Smoked - CARDIAC Hx Hypercholesterolemia: Yes Hx Hypertension: Yes Hx Peripheral Edema: Yes - PULMONARY Hx Respiratory Disorders: No - NEUROLOGICAL Hx Neurological Disorder: No - HEENT Hx HEENT Problems: Yes Hx Cataracts: Yes - RENAL Hx Chronic Kidney Disease: No - ENDOCRINE/METABOLIC Hx Diabetes Mellitus Type 2: Yes - HEMATOLOGICAL/ONCOLOGICAL Hx Blood Disorders: No - INTEGUMENTARY Hx Dermatological Problems: No - MUSCULOSKELETAL/RHEUMATOLOGICAL Hx Falls: Yes - GASTROINTESTINAL Hx Gastrointestinal Disorders: Yes Hx Irritable Bowel: Yes - GENITOURINARY/GYNECOLOGICAL Hx Uterine Cancer: Yes (hysterectomy 2007) - PSYCHIATRIC Hx Anxiety: Yes Hx Depression: Yes Hx Substance Use: No - SURGICAL HISTORY Hx Cholecystectomy: Yes (1975) Hx Coronary Stent: Yes - ANESTHESIA Hx Anesthesia: Yes Hx Anesthesia Reactions: No Meds Allergies/Adverse Reactions: Allergies Allergy/AdvReac Type Severity Reaction Status Date / Time Penicillins Allergy Verified 11/14/16 13:58 - Medications Medications: Current Medications Acetaminophen (Tylenol 325mg Tab) 650 mg PO Q6 PRN PRN Reason: Pain, severe (8-10) Last Admin: 11/16/16 10:09 Dose: 650 mg Alprazolam (Xanax) 1 mg PO TID PRN PRN Reason: Anxiety Amlodipine Besylate (Norvasc) 10 mg PO DAILY [facility] Last Admin: 11/17/16 12:28 Dose: 10 mg Clopidogrel Bisulfate (Plavix) 75 mg PO DAILY [facility] Last Admin: 11/17/16 10:15 Dose: 75 mg Enoxaparin Sodium (Lovenox) 40 mg SC DAILY [facility] Last Admin: 11/17/16 10:50 Dose: 40 mg Fluoxetine HCl (Prozac) 40 mg PO DAILY [facility] Last Admin: 11/17/16 10:31 Dose: 40 mg Furosemide (Lasix) 20 mg PO DAILY [facility] Gabapentin (Neurontin) 100 mg PO TID [facility] Last Admin: 11/17/16 10:15 Dose: 100 mg Hydrochlorothiazide (Hydrodiuril) 25 mg PO DAILY [facility] Last Admin: 11/17/16 10:14 Dose: 25 mg Aztreonam 1 gm/ Sodium (Chloride) 100 mls @ 200 mls/hr IVPB Q8H [facility] Last Admin: 11/17/16 10:29 Dose: 200 mls/hr Insulin Glargine (Lantus) 22 unit SC HS [facility] Insulin Human Regular (Novolin R) 0 unit SC ACHS [facility] PRN Reason: Protocol Last Admin: 11/17/16 12:30 Dose: 3 unit Insulin Human Regular (Novolin R) 4 unit SC TIDAC [facility] Last Admin: 11/17/16 12:27 Dose: 4 unit Losartan Potassium (Cozaar) 100 mg PO DAILY [facility] Last Admin: 11/17/16 10:15 Dose: 100 mg Naproxen (Anaprox Ds) 550 mg PO BID [facility] Last Admin: 11/17/16 10:15 Dose: 550 mg Nystatin (Nystop Topical Powder) 1 applic TOP BID [facility] Last Admin: 11/17/16 12:31 Dose: 1 applic Potassium Chloride (Potassium Chloride Oral Soln) 20 meq PO DAILY [facility] Last Admin: 11/17/16 12:32 Dose: 20 meq Rosuvastatin Calcium (Crestor) 10 mg PO HS [facility] Last Admin: 11/16/16 21:43 Dose: 10 mg Saccharomyces Boulardii (Florastor) 250 mg PO BID CHAD Trazodone HCl (Desyrel) 50 mg PO HS [facility] Last Admin: 11/16/16 21:44 Dose: 50 mg Physical Exam - Constitutional Appears: No Acute Distress - Head Exam Head Exam: ATRAUMATIC, NORMAL INSPECTION, NORMOCEPHALIC - Eye Exam Eye Exam: EOMI, Normal appearance, PERRL Pupil Exam: NORMAL ACCOMODATION, PERRL Additional comments: With eye glasses - ENT Exam ENT Exam: Mucous Membranes Moist, Normal Exam - Neck Exam Neck exam: Positive for: Normal Inspection - Respiratory Exam Respiratory Exam: Decreased Breath Sounds, NORMAL BREATHING PATTERN - Cardiovascular Exam Cardiovascular Exam: Tachycardia, REGULAR RHYTHM, +S1, +S2 - GI/Abdominal Exam GI & Abdominal Exam: Normal Bowel Sounds - Rectal Exam Rectal Exam: Deferred - Extremities Exam Extremities exam: Positive for: pedal edema - Back Exam Back exam: NORMAL INSPECTION - Neurological Exam Neurological exam: Alert, Oriented x3 - Psychiatric Exam Psychiatric exam: Normal Affect, Normal Mood - Skin Skin Exam: Dry, Intact, Normal Color, Warm Results - Vital Signs Recent Vital Signs: Last Vital Signs Temp 99 F 11/17/16 09:10 Pulse 79 11/17/16 09:10 Resp 20 11/17/16 09:10 BP 130/78 11/17/16 10:52 Pulse Ox 96 11/17/16 09:10 - Labs Result Diagrams: 11/17/16 07:40 11/17/16 07:40 Labs: Laboratory Results - last 24 hr 11/16/16 11/16/16 11/17/16 16:57 21:58 07:12 WBC RBC Hgb Hct MCV MCH MCHC RDW Plt Count MPV Neut % (Auto) Lymph % (Auto) [place] % (Auto) Eos % (Auto) Baso % (Auto) Neut # Lymph # [place] # Eos # Baso # Sodium Potassium Chloride Carbon Dioxide Anion Gap BUN Creatinine Est GFR ( Amer) Est GFR (Non-Af Amer) POC Glucose (mg/dL) 327 H 350 H 328 H Random Glucose Calcium Phosphorus Magnesium Total Bilirubin AST ALT Alkaline Phosphatase Total Protein Albumin Globulin Albumin/Globulin Ratio 11/17/16 11/17/16 11/17/16 07:40 07:40 11:05 WBC 8.6 RBC 4.41 Hgb 13.9 Hct 40.8 MCV 92.5 MCH 31.4 H MCHC 34.0 RDW 12.7 Plt Count 266 MPV 8.5 Neut % (Auto) 69.5 Lymph % (Auto) 16.4 L [place] % (Auto) 9.7 Eos % (Auto) 3.7 Baso % (Auto) 0.7 Neut # 6.0 Lymph # 1.4 [place] # 0.8 Eos # 0.3 Baso # 0.1 Sodium 136 Potassium 3.6 Chloride 94 L Carbon Dioxide 28 Anion Gap 18 BUN 34 H Creatinine 1.2 Est GFR ( Amer) 54 Est GFR (Non-Af Amer) 45 POC Glucose (mg/dL) 383 H Random Glucose 339 H Calcium 8.8 Phosphorus 4.3 Magnesium 1.7 Total Bilirubin 0.4 AST 26 ALT 19 Alkaline Phosphatase 69 Total Protein 6.6 Albumin 3.3 L Globulin 3.3 Albumin/Globulin Ratio 1.0 Assessment & Plan - Assessment and Plan (Free Text) Assessment: palliative consult No advance directive on chart, PPS 30%I reviewed medical records, all diagnostic studies, examined and interviewed patient in the bed. Patient is alert, oriented X 3 in no acute distress, looking older than stated age. There is very fine hair distribution. Breath sounds are diminished, denies cough/chest pain. Hr 100, ST. Abdomen soft, active bowel sounds. pedal edema present. BP 144/85, HR 79, O2Sat 96% RA. Last Blood sugar 328. HbA1C 12.4. Patient is on Novolog sliding scale and Lantus. Patient was to have UTI, E coli and Azactam IV on board. We discussed goals of care. Patient is mostly concerned about her cat , saying " that cat is my life". Patient was able to arrange that some one takes care of the cat and is more calm now. Patient understands she may need ADA for PT and IV antibiotics and prefers [place] where she was before. Patient lives alone and heavily depends on the computer where she orders all her groceries and meds. patient stated once she ordered 8 packs of Diet Coke when it was on sale. Code status discussed. Patient states having a Living will where she named her Proxy. Patient was not sure if she posses the copy of it, but her Wastewater Treatment Engineer Marv [place] has it as per her. Patient recalls that in the Advance Directive she choose DNR/DNI as she would not want her life to be unecassary prolomged by the life support if her condition becomes terminal. Also , the Proxy she choose is in bad health also, on HD and patient is not sure if that Proxy would be evntually able to fulfill his role. I discussed the POLST and its benefices and patient choose DNR/DNI. This was discussed to nursing staff, order placed in and POLST on chart. Impression * Uncontrolled blood sugar * Unsteady gait and frequent falls * Lives alone and is at risk for injuries due to frequent falls * Separation anxiety, misses her cat Suggestion * Blood sugar control * Patient needs to be educated on proper diet and blood sugar control ( I did some basic teaching) * Discharge planig mayra CABALLERO * POLST on chart Thank you for consulting palliative care
--- NOTE | 2016-11-17 15:59 | CP.PCM.PN ---
<LisandroGriselda - Last Filed: 11/17/16 20:50> Subjective - Date & Time of Evaluation Date of Evaluation: 11/17/16 Time of Evaluation: 15:58 - Subjective Subjective: The patient was seen and examined at bedside and says that she feels much better but feels a little dizzy and shaky when standing. She complains of aches at the back of her head which she rates a 4/10 and in both of her legs which she rates a 5/10. She also states that she still has some pain in her left shoulder, left hip, and tailbone. She states that she has aches in her fingers as well which she says feel stiff. She says that the rash in her groin still itches and vaca. The patient also complains of a headache localized to the left side of her head, achy chest pain, a cough with no sputum production, some nausea, and bilateral LE pain and swelling. ROS: General: (-) Fever or chills HEENT: (+) P[place]ILLA, (-) visual changes Cardio: (+) Chest pain, (-) palpitations Resp: (-) SOB, (+) cough GI: (+) N, (-) V/D/C/Abdominal pain : (-) Hematuria or dysuria MSK: (+) LE swelling or pain Objective - Vital Signs/Intake and Output Vital Signs (last 24 hours): Temp Pulse Resp BP Pulse Ox 99 F 79 20 130/78 96 11/17/16 09:10 11/17/16 09:10 11/17/16 09:10 11/17/16 10:52 11/17/16 14:58 Intake and Output: 11/17/16 11/17/16 06:59 18:59 Intake Total 240 600 Output Total 2200 1700 Balance -1960 -1100 - Medications Medications: Current Medications Acetaminophen (Tylenol 325mg Tab) 650 mg PO Q6 PRN PRN Reason: Pain, severe (8-10) Last Admin: 11/16/16 10:09 Dose: 650 mg Alprazolam (Xanax) 1 mg PO TID PRN PRN Reason: Anxiety Amlodipine Besylate (Norvasc) 10 mg PO DAILY [facility] Last Admin: 11/17/16 12:28 Dose: 10 mg Clopidogrel Bisulfate (Plavix) 75 mg PO DAILY [facility] Last Admin: 11/17/16 10:15 Dose: 75 mg Enoxaparin Sodium (Lovenox) 40 mg SC DAILY [facility] Last Admin: 11/17/16 10:50 Dose: 40 mg Fluoxetine HCl (Prozac) 40 mg PO DAILY [facility] Last Admin: 11/17/16 10:31 Dose: 40 mg Furosemide (Lasix) 20 mg PO DAILY [facility] Gabapentin (Neurontin) 100 mg PO TID [facility] Last Admin: 11/17/16 10:15 Dose: 100 mg Hydrochlorothiazide (Hydrodiuril) 25 mg PO DAILY [facility] Last Admin: 11/17/16 10:14 Dose: 25 mg Aztreonam 1 gm/ Sodium (Chloride) 100 mls @ 200 mls/hr IVPB Q8H [facility] Last Admin: 11/17/16 10:29 Dose: 200 mls/hr Insulin Glargine (Lantus) 22 unit SC HS [facility] Insulin Human Regular (Novolin R) 0 unit SC ACHS [facility] PRN Reason: Protocol Last Admin: 11/17/16 12:30 Dose: 3 unit Insulin Human Regular (Novolin R) 4 unit SC TIDAC [facility] Last Admin: 11/17/16 12:27 Dose: 4 unit Losartan Potassium (Cozaar) 100 mg PO DAILY [facility] Last Admin: 11/17/16 10:15 Dose: 100 mg Naproxen (Anaprox Ds) 550 mg PO BID [facility] Last Admin: 11/17/16 10:15 Dose: 550 mg Nystatin (Nystop Topical Powder) 1 applic TOP BID [facility] Last Admin: 11/17/16 12:31 Dose: 1 applic Potassium Chloride (Potassium Chloride Oral Soln) 20 meq PO DAILY [facility] Last Admin: 11/17/16 12:32 Dose: 20 meq Rosuvastatin Calcium (Crestor) 10 mg PO HS [facility] Last Admin: 11/16/16 21:43 Dose: 10 mg Saccharomyces Boulardii (Florastor) 250 mg PO BID [facility] Trazodone HCl (Desyrel) 50 mg PO HS [facility] Last Admin: 11/16/16 21:44 Dose: 50 mg - Labs Labs: 11/17/16 07:40 11/17/16 07:40 PT 10.4 SECONDS (9.7-12.2) 11/14/16 15:40 INR 0.9 11/14/16 15:40 APTT 29 SECONDS (21-34) 11/14/16 15:40 - Constitutional Appears: Non-toxic, No Acute Distress - Head Exam Head Exam: NORMAL INSPECTION - Eye Exam Eye Exam: EOMI - ENT Exam ENT Exam: Mucous Membranes Moist - Respiratory Exam Respiratory Exam: Clear to Ausculation Bilateral, NORMAL BREATHING PATTERN. absent: Rales, Rhonchi, Wheezes, Respiratory Distress - Cardiovascular Exam Cardiovascular Exam: REGULAR RHYTHM, +S1, +S2. absent: Bradycardia, Tachycardia - GI/Abdominal Exam GI & Abdominal Exam: Soft, Normal Bowel Sounds. absent: Tenderness - Extremities Exam Extremities Exam: Pedal Edema, Tenderness - Neurological Exam Neurological Exam: Alert, Awake, Oriented x3 - Psychiatric Exam Psychiatric exam: Normal Affect, Normal Mood - Skin Skin Exam: Dry, Intact, Normal Color, Warm Assessment and Plan - Assessment and Plan (Free Text) Assessment: Mechanical Fall Case Management for possible rehab placement Head CT: stable unenhanced head CT with no intracranial hemorrhage or definite fracture appreciable. Knee X-ray: Bilateral and patellofemoral osteoarthritis. Mild medial right osteoarthritis. No acute fracture. Hip/Pelvis X-ray: Diffuse osteopenia suggests osteoporosis however there is no fracture or dislocation appreciated throughout the pelvic ring or bilateral hip joints. Degeneration changes seen at the bilateral sacroiliac and hip joints. Lumbar X-ray: Stable multilevel lumbar spondylosis including a mild dextroscoliotic spondylolisthesis is appreciable. Shoulder X-ray: No evidence of acute fracture or dislocation. Chest X-ray: No active disease ordered left shoulder x ray: no fracture or dislocation UTI Urine culture: E. Coli Aztreonam 1g IV Q8 Hypokalemia 20 Kdur given f/u cmp DM HgA1C (09/17/16): 12.4 ISS (high scale) Lantus 22U HS Novalog 4U TID AC Neurontin 100 mg PO TID accuchecks diabetic diet HTN Losartan 100 mg PO daily Lasix 40mg PO daily 25mg HTZ PO daily Depression/ anxiety Xanax 1 mg PO TID PRN Prozac 40 mg PO daily Trazodone 50 mg PO HS History of CAD plavix 75 mg PO daily ECHO (09/16/16): EF 50%; the left ventricle is normal size. There is normal left ventricular wall thickness. Left ventricle is boderline. There is normal LV segmental wall motion. Transmitral doppler chicho pattern is Grade I-abnormal relaxation pattern. Mitral regurgitation is mild. LE pain and edema f/u venous doppler Prophylactic Pepcid 20 mg PO BID Plavix 75 mg PO daily PT/OT <Mayte Boswell V - Last Filed: 11/21/16 16:29> Objective - Vital Signs/Intake and Output Vital Signs (last 24 hours): Temp Pulse Resp BP Pulse Ox 98 F 70 20 110/76 96 11/21/16 08:52 11/21/16 08:52 11/21/16 08:52 11/21/16 08:52 11/21/16 08:52 Intake and Output: 11/21/16 11/21/16 06:59 18:59 Intake Total 1365 Balance 1365 - Medications Medications: Current Medications Acetaminophen (Tylenol 325mg Tab) 650 mg PO Q6 PRN PRN Reason: Pain, severe (8-10) Last Admin: 11/16/16 10:09 Dose: 650 mg Alprazolam (Xanax) 1 mg PO TID PRN PRN Reason: Anxiety Last Admin: 11/20/16 10:35 Dose: 1 mg Amlodipine Besylate (Norvasc) 10 mg PO DAILY [facility] Last Admin: 11/21/16 09:56 Dose: 10 mg Betamethasone/Clotrimazole (Lotrisone) 0 gm TOP BID [facility] Last Admin: 11/21/16 09:58 Dose: 1 applic Clopidogrel Bisulfate (Plavix) 75 mg PO DAILY [facility] Last Admin: 11/21/16 09:56 Dose: 75 mg Enoxaparin Sodium (Lovenox) 40 mg SC DAILY [facility] Last Admin: 11/21/16 09:56 Dose: 40 mg Fluoxetine HCl (Prozac) 40 mg PO DAILY [facility] Last Admin: 11/21/16 09:56 Dose: 40 mg Gabapentin (Neurontin) 100 mg PO TID [facility] Last Admin: 11/21/16 14:26 Dose: 100 mg Aztreonam 1 gm/ Sodium (Chloride) 100 mls @ 200 mls/hr IVPB Q8H [facility] Last Admin: 11/21/16 10:59 Dose: 200 mls/hr Sodium Chloride (Sodium Chloride 0.9%) 1,000 mls @ 65 mls/hr IV .[id number] [facility] Last Admin: 11/21/16 06:31 Dose: 65 mls/hr Linezolid (Zyvox 600mg/300ml D5w) 600 mg in 300 mls @ 200 mls/hr IVPB Q12 [facility] Last Admin: 11/21/16 10:06 Dose: 200 mls/hr Insulin Aspart (Novolog) 0 unit SC ACHS [facility] PRN Reason: Protocol Last Admin: 11/21/16 12:23 Dose: Not Given Insulin Aspart (Novolog) 16 unit SC AC [facility] Last Admin: 11/21/16 12:23 Dose: 16 unit Insulin Glargine (Lantus) 60 unit SC HS [facility] Losartan Potassium (Cozaar) 100 mg PO DAILY [facility] Last Admin: 11/20/16 10:36 Dose: 100 mg Potassium Chloride (Potassium Chloride Oral Soln) 20 meq PO DAILY [facility] Last Admin: 11/21/16 10:06 Dose: 20 meq Rosuvastatin Calcium (Crestor) 10 mg PO [facility] Last Admin: 11/20/16 21:45 Dose: 10 mg Saccharomyces Boulardii (Florastor) 250 mg PO BID [facility] Last Admin: 11/21/16 09:56 Dose: 250 mg Trazodone HCl (Desyrel) 50 mg PO [facility] Last Admin: 11/20/16 21:49 Dose: 50 mg - Labs Labs: 11/21/16 08:41 11/21/16 08:41 PT 10.4 SECONDS (9.7-12.2) 11/14/16 15:40 INR 0.9 11/14/16 15:40 APTT 29 SECONDS (21-34) 11/14/16 15:40 Attending/Attestation - Attestation I have personally seen and examined this patient.: Yes I have fully participated in the care of the patient.: Yes I have reviewed all pertinent clinical information, including history, physical exam and plan: Yes Notes (Text): This is late computer entry for 11/17/16. Patient seen, examined, and case discussed with day-time resident. Patient's sugars are uncontrolled. increase long acting insulin to Lantus 22 units at night. patient has required about 24 units of coverage during the day. patient started on Novolog 4 units subq TIDAC as pre-meal. Patient's urine culture resulted E. Coli-->patient is allergic to PCN-->started on Aztreonam 1gram IV Q 8 hours. Assessment/Plan 1. s/p Mechanical Fall * Head CT (11/14/16): stable unenhanced head CT with no intracranial hemorrhage or definite fracture appreciable * Knee xray (11/14/16): bilateral lateral and patellofemoral osteoarthritis. Mild Medial right osteoarthritis. * Hip/pelvis xray (11/14/16): diffuse osteopenia suggests osteoporosis however there is no fracture or dislocation appreciated throughout the pevlic ring or bilateral hip joints. Degenerate changes seen at the bilateral sacroiliac and hip joints * Lumbar xray (11/14/16): stable multilevel lumbar spondylosis including a mild dextroscoliotic lumbar spinal deformity * Chest xray (11/14/16): no active disease * Left shoulder xray (11/15/16): no evidence of acute fracture or dislocation * PT eval * OT eval * Case management referral for subacute rehab 2. Catheter Associated UTI * Urine culture (11/14/16): E. COLI-->patient is allergic to PCN * Aztreonam 1 gram IV Q 8 hours (active since 11/17/16) 3. Hypokalemia * Monitor and replete * Check CMP and Mg2+ * Patient is on diuretic and potassium supplement 4. Uncontrolled DM * HgA1C: 12.4 (09/17/16) * RISS (high scale) * Increase lantus 22 units subHS * start Novolog 4units TIDAC * Neurontin 100 mg PO TID * Patient normally takes a Metformin 1000mg/januvia 100mg XL but is not available in the hospital * Home Medication: held Invokana on admission 5. Lower Extremity Edema * Echocardiogram (09/17/16): left ventricle is normal size, normal left ventricular wall thickness, left ventricle is borderline, normal LV segmental wall motion. Mitral regurgitation is mild. Grade-1 abnormal relaxation. * Non-pitting * pending lower extremity venous dopplers 6. Hypertension * Losartan 100 mg PO daily * HCTZ 25mg Po daily (on potassium supplement) * Norvasc 10mg PO daily * Monitor vital signs 7. Depression/ anxiety * Xanax 1 mg PO daily TID PRN-->confirmed and reviewed [place] [employer] * Prozac 40 mg PO daily * Trazodone 50 mg PO HS 8. CAD with stents * plavix 75 mg PO daily * Crestor 10 mg POqHS * Echocardiogram (09/17/16): left ventricle is normal size, normal left ventricular wall thickness, left ventricle is borderline, normal LV segmental wall motion. Mitral regurgitation is mild. Grade-1 abnormal relaxation. 9. IBS 10. Groin Rash * Start Nystatin powder 1 topical powder BID 11. Urinary incontinence * History of * Usually wears diapers at home 12. Prophylactic * Lovenox 40mg subqdaily * Plavix 75 mg PO daily * Tylenol 650mg POQ6 PRN pain * PT/OT eval * Case management referral: subacute rehab
[2016-11-17] MEDS: Saccharomyces Boulardi 250 mg Cap PO SCH (19:00)
[2016-11-18] MEDS: Aztreonam 1 GM in Sodium Chloride 0.9% 100 ML IVPB SCH ×3 (02:59→19:44)
[2016-11-18 07:21] LABS: BASO # 0.1 K/uL (0.0-0.2); BASO % 0.7 % (0.0-2.0); EOS # 0.4 K/uL (0.0-0.7); EOS % 4.1 % (0.0-4.0); HEMATOCRIT 40.8 % (34.0-47.0); LYMPH # 1.5 K/uL (1.0-4.3); LYMPH % 16.9 % (20.0-40.0); MEAN CELL VOLUME 91.9 fL (81.0-99.0); MEAN CORPUSCULAR HEMOGLOBIN 31.8 pg (27.0-31.0); MEAN CORPUSCULAR HGB CONC 34.6 g/dL (33.0-37.0); MEAN PLATELET VOLUME 8.4 fL (7.2-11.7); MONO # 0.9 K/uL (0.0-0.8); MONO % 10.1 % (0.0-10.0); RED CELL DISTRIBUTION WIDTH 12.7 % (11.5-14.5); WHITE BLOOD COUNT 8.8 K/uL (4.8-10.8)
[2016-11-18] MEDS: (Novolin R) Insulin Human Regular 100 units/ml vial SC SCH ×8 (07:30→21:57)
[2016-11-18 07:42] LABS: POTASSIUM 3.4 mmol/L (3.6-5.2)
[2016-11-18 07:44] LABS: BILIRUBIN,TOTAL 0.5 mg/dL (0.2-1.3); PHOSPHOROUS 4.6 mg/dL (2.5-4.5); TOTAL PROTEIN 6.3 g/dL (6.3-8.3)
[2016-11-18 07:45] LABS: MAGNESIUM 1.7 mg/dL (1.6-2.3)
[2016-11-18] MEDS: Naproxen 550 mg Tab PO SCH ×2 (09:36→17:02)
[2016-11-18] MEDS: Saccharomyces Boulardi 250 mg Cap PO SCH ×2 (09:36→17:01)
[2016-11-18] MEDS: Enoxaparin 40 mg Syringe SC SCH (09:38)
[2016-11-18] MEDS: Potassium Chloride 20 mEq/15 ml LIQ UD PO SCH (09:38)
[2016-11-18] MEDS ORDERED: Potassium Chloride 20 mEq ER Tab PO ONE ×2 (15:15→16:22)
--- NOTE | 2016-11-18 16:41 | CP.PCM.PN ---
<LisandroGriselda - Last Filed: 11/18/16 16:38> Subjective - Date & Time of Evaluation Date of Evaluation: 11/18/16 Time of Evaluation: 16:39 - Subjective Subjective: The patient was seen and examined at bedside and says she feels better than yesterday and slept well. She says that her generalized body aches are getting better but still complains of some left hip soreness and pain at the back of her head as well as pain and swelling in both legs. She also says that she still feels shaky and lightheaded while getting up and that she feels like her right leg is heavier than her left. She says that the rash in her groin feels better, as the nurses have been washing it well but she still complains of some burning in the area. ROS: General: (-) Fever or chills HEENT: (-) PADILLA or visual changes Cardio: (-) Chest pain or palpitations Resp: (-) SOB or cough GI: (+) N, (-) V/D/C/Abdominal pain : (-) Hematuria or dysuria MSK: (+) LE swelling or pain Objective - Vital Signs/Intake and Output Vital Signs (last 24 hours): Temp Pulse Resp BP Pulse Ox 98.2 F 64 20 105/70 95 11/18/16 16:16 11/18/16 16:16 11/18/16 16:16 11/18/16 16:16 11/18/16 16:16 Intake and Output: 11/18/16 11/18/16 06:59 18:59 Intake Total 350 600 Output Total 1550 1000 Balance -1200 -400 - Medications Medications: Current Medications Acetaminophen (Tylenol 325mg Tab) 650 mg PO Q6 PRN PRN Reason: Pain, severe (8-10) Last Admin: 11/16/16 10:09 Dose: 650 mg Alprazolam (Xanax) 1 mg PO TID PRN PRN Reason: Anxiety Last Admin: 11/18/16 16:20 Dose: 1 mg Amlodipine Besylate (Norvasc) 10 mg PO DAILY [facility] Last Admin: 11/18/16 10:26 Dose: 10 mg Clopidogrel Bisulfate (Plavix) 75 mg PO DAILY [facility] Last Admin: 11/18/16 09:36 Dose: 75 mg Enoxaparin Sodium (Lovenox) 40 mg SC DAILY [facility] Last Admin: 11/18/16 09:38 Dose: 40 mg Fluoxetine HCl (Prozac) 40 mg PO DAILY [facility] Last Admin: 11/18/16 09:36 Dose: 40 mg Furosemide (Lasix) 20 mg PO DAILY [facility] Last Admin: 11/18/16 09:36 Dose: 20 mg Gabapentin (Neurontin) 100 mg PO TID [facility] Last Admin: 11/18/16 09:39 Dose: 100 mg Hydrochlorothiazide (Hydrodiuril) 25 mg PO DAILY [facility] Last Admin: 11/18/16 09:37 Dose: 25 mg Aztreonam 1 gm/ Sodium (Chloride) 100 mls @ 200 mls/hr IVPB Q8H [facility] Last Admin: 11/18/16 11:28 Dose: 200 mls/hr Insulin Glargine (Lantus) 47 unit SC HS [facility] Insulin Human Regular (Novolin R) 0 unit SC ACHS [facility] PRN Reason: Protocol Last Admin: 11/18/16 12:24 Dose: 10 unit Insulin Human Regular (Novolin R) 12 unit SC TIDAC [facility] Losartan Potassium (Cozaar) 100 mg PO DAILY [facility] Last Admin: 11/18/16 09:38 Dose: 100 mg Naproxen (Anaprox Ds) 550 mg PO BID [facility] Last Admin: 11/18/16 09:36 Dose: 550 mg Nystatin (Nystop Topical Powder) 1 applic TOP BID [facility] Last Admin: 11/18/16 09:35 Dose: 1 applic Potassium Chloride (Potassium Chloride Oral Soln) 20 meq PO DAILY [facility] Last Admin: 11/18/16 09:38 Dose: 20 meq Rosuvastatin Calcium (Crestor) 10 mg PO [facility] Last Admin: 11/17/16 21:34 Dose: 10 mg Saccharomyces Boulardii (Florastor) 250 mg PO BID [facility] Last Admin: 11/18/16 09:36 Dose: 250 mg Trazodone HCl (Desyrel) 50 mg PO HS [facility] Last Admin: 11/17/16 21:34 Dose: 50 mg - Labs Labs: 11/18/16 07:05 11/18/16 07:05 PT 10.4 SECONDS (9.7-12.2) 11/14/16 15:40 INR 0.9 11/14/16 15:40 APTT 29 SECONDS (21-34) 11/14/16 15:40 - Constitutional Appears: Non-toxic, No Acute Distress - Head Exam Head Exam: NORMAL INSPECTION - Eye Exam Eye Exam: EOMI - ENT Exam ENT Exam: Mucous Membranes Moist - Respiratory Exam Respiratory Exam: Clear to Ausculation Bilateral, NORMAL BREATHING PATTERN - Cardiovascular Exam Cardiovascular Exam: REGULAR RHYTHM, +S1, +S2, Murmur (KANDICE) - GI/Abdominal Exam GI & Abdominal Exam: Soft, Normal Bowel Sounds. absent: Tenderness - Extremities Exam Extremities Exam: Pedal Edema (b/l), Tenderness (b/l) - Neurological Exam Neurological Exam: Alert, Awake - Psychiatric Exam Psychiatric exam: Normal Affect, Normal Mood - Skin Skin Exam: Dry, Intact, Warm Assessment and Plan - Assessment and Plan (Free Text) Assessment: Mechanical Fall Case Management for possible rehab placement Head CT: stable unenhanced head CT with no intracranial hemorrhage or definite fracture appreciable. Knee X-ray: Bilateral and patellofemoral osteoarthritis. Mild medial right osteoarthritis. No acute fracture. Hip/Pelvis X-ray: Diffuse osteopenia suggests osteoporosis however there is no fracture or dislocation appreciated throughout the pelvic ring or bilateral hip joints. Degeneration changes seen at the bilateral sacroiliac and hip joints. Lumbar X-ray: Stable multilevel lumbar spondylosis including a mild dextroscoliotic spondylolisthesis is appreciable. Shoulder X-ray: No evidence of acute fracture or dislocation. Chest X-ray: No active disease ordered left shoulder x ray: no fracture or dislocation UTI ID consulted (Dr. Tai) - recs appreciated Urine culture: E. Coli Aztreonam 1g IV Q8 Patel in [address] and will remain for now if repeat urine culture negative Hypokalemia 20 Kdur given f/u cmp DM HgA1C (09/17/16): 12.4 ISS (high scale) Lantus 47U HS Novalog 12U TID AC Neurontin 100 mg PO TID accuchecks diabetic diet HTN Losartan 100 mg PO daily Lasix 40mg PO daily 25mg HTZ PO daily Depression/ anxiety Xanax 1 mg PO TID PRN Prozac 40 mg PO daily Trazodone 50 mg PO HS History of CAD plavix 75 mg PO daily ECHO (09/16/16): EF 50%; the left ventricle is normal size. There is normal left ventricular wall thickness. Left ventricle is boderline. There is normal LV segmental wall motion. Transmitral doppler chicho pattern is Grade I-abnormal relaxation pattern. Mitral regurgitation is mild. LE pain and edema f/u venous doppler Prophylactic Pepcid 20 mg PO BID Plavix 75 mg PO daily PT/OT <Dain Smart Lety - Last Filed: 11/18/16 20:26> Objective - Vital Signs/Intake and Output Vital Signs (last 24 hours): Temp Pulse Resp BP Pulse Ox 98.2 F 64 20 105/70 95 11/18/16 16:16 11/18/16 16:30 11/18/16 16:16 11/18/16 16:30 11/18/16 16:30 Intake and Output: 11/18/16 11/19/16 18:59 06:59 Intake Total 600 Output Total 1000 Balance -400 - Medications Medications: Current Medications Acetaminophen (Tylenol 325mg Tab) 650 mg PO Q6 PRN PRN Reason: Pain, severe (8-10) Last Admin: 11/16/16 10:09 Dose: 650 mg Alprazolam (Xanax) 1 mg PO TID PRN PRN Reason: Anxiety Last Admin: 11/18/16 16:20 Dose: 1 mg Amlodipine Besylate (Norvasc) 10 mg PO DAILY [facility] Last Admin: 11/18/16 10:26 Dose: 10 mg Clopidogrel Bisulfate (Plavix) 75 mg PO DAILY [facility] Last Admin: 11/18/16 09:36 Dose: 75 mg Enoxaparin Sodium (Lovenox) 40 mg SC DAILY [facility] Last Admin: 11/18/16 09:38 Dose: 40 mg Fluoxetine HCl (Prozac) 40 mg PO DAILY [facility] Last Admin: 11/18/16 09:36 Dose: 40 mg Furosemide (Lasix) 20 mg PO DAILY [facility] Last Admin: 11/18/16 09:36 Dose: 20 mg Gabapentin (Neurontin) 100 mg PO TID [facility] Last Admin: 11/18/16 17:02 Dose: 100 mg Hydrochlorothiazide (Hydrodiuril) 25 mg PO DAILY [facility] Last Admin: 11/18/16 09:37 Dose: 25 mg Aztreonam 1 gm/ Sodium (Chloride) 100 mls @ 200 mls/hr IVPB Q8H [facility] Last Admin: 11/18/16 19:44 Dose: 200 mls/hr Insulin Glargine (Lantus) 47 unit SC HS [facility] Insulin Human Regular (Novolin R) 0 unit SC ACHS [facility] PRN Reason: Protocol Last Admin: 11/18/16 17:25 Dose: 6 unit Insulin Human Regular (Novolin R) 12 unit SC TIDAC [facility] Last Admin: 11/18/16 17:02 Dose: 12 unit Losartan Potassium (Cozaar) 100 mg PO DAILY [facility] Last Admin: 11/18/16 09:38 Dose: 100 mg Naproxen (Anaprox Ds) 550 mg PO BID [facility] Last Admin: 11/18/16 17:02 Dose: 550 mg Nystatin (Nystop Topical Powder) 1 applic TOP BID [facility] Last Admin: 11/18/16 17:05 Dose: 1 applic Potassium Chloride (Potassium Chloride Oral Soln) 20 meq PO DAILY [facility] Last Admin: 11/18/16 09:38 Dose: 20 meq Rosuvastatin Calcium (Crestor) 10 mg PO [facility] Last Admin: 11/17/16 21:34 Dose: 10 mg Saccharomyces Boulardii (Florastor) 250 mg PO BID [facility] Last Admin: 11/18/16 17:01 Dose: 250 mg Trazodone HCl (Desyrel) 50 mg PO [facility] Last Admin: 11/17/16 21:34 Dose: 50 mg - Labs Labs: 11/18/16 07:05 11/18/16 07:05 PT 10.4 SECONDS (9.7-12.2) 11/14/16 15:40 INR 0.9 11/14/16 15:40 APTT 29 SECONDS (21-34) 11/14/16 15:40 Attending/Attestation - Attestation I have personally seen and examined this patient.: Yes I have fully participated in the care of the patient.: Yes I have reviewed all pertinent clinical information, including history, physical exam and plan: Yes Notes (Text): 11/18/16 20:14 Patient was seen and examined at 2:45 PM 11/18/16 Exam, Assessment and Plan were gone over with the resident. Please also note for ROS: Shakes and chills during the night Can't hold urine for long, "when I have to go, I have to go" (present for some time now) Please also note for Exam: HEENT: Right top eyelid lower than left (been present for some time now) Skin: bilateral Fungal rash has improved with Nystatin Please also note for Assessment and Plan: UTI: urine culture 11/14/16 showed E. coli and patient is on Aztreonam. Repeat Urine Culture along with Blood Cultures ordered. Also ID Dr. Kumar consultation placed for further recommendations DM 1: between 8 AM 11/17/16 and 8 AM 11/18/16, patient required an additional 50 units of rapid acting insulin on sliding scale. Therefore 25 units added to Lantus which is now at 47 units HS and the other 25 units split 3 ways and added to premeal Novolin R which is now at 12 units AC meals. Bilateral Inguinal/Groin Fungal Rash: Nystatin Powder BID Prophylaxis: patient is on Lovenox for DVT prophylaxis and Plavix for her history of CAD Explained to patient my concern for continued Patel use with presence of E. coli UTI. She was adamant amount not having Patel removed despite explanation and stated that "I don't want to have to lay in my own urine". It was agreed that if repeat Urine Culture did not show E. coli that the Patel could stay in place. However if repeat culture showed continued UTI then Patel would have to be removed and order placed for Adult Diaper. Nursing communication has been placed for Patel Care: clean patel insertion site with Betadine 3x/day. I spoke with Ham Sawyer Diana: patient has been approved for ADA Zafar. However, we need to make sure Blood Culture is negative, repeat Urine Culture is negative, and need length of antibiotic for the UTI. The above was explained to the patient. Dain Smart D.O.
[2016-11-18 17:18] LABS: RBC URINE 6 /hpf (0-3); URINE BACTERIA MANY (<OCC); URINE BILIRUBIN NEGATIVE (NEGATIVE); URINE BLOOD 1+ (NEGATIVE); URINE COLOR Yellow (YELLOW); URINE GLUCOSE (UA) 3+ mg/dL (Normal); URINE KETONE NEGATIVE (NEGATIVE); URINE LEUKOCYTE ESTERASE 3+ Leu/uL (Negative); URINE PROTEIN 1+ mg/dL (NEGATIVE); URINE UROBILINOGEN NORMAL mg/dL (0.2-1.0); WBC URINE 68 /hpf (0-5)
[2016-11-18] MEDS ORDERED: (Lantus) Insulin Glargine, Recombinant SC SCH (22:00)
--- NOTE | 2016-11-18 22:18 | CP.PCM.CON ---
History of Present Illness - History of Present Illness History of Present Illness: dictated Past Patient History - Infectious Disease Hx of Infectious Diseases: None - Past Medical History & Family History Past Medical History?: Yes - Past Social History Smoking Status: Never Smoked - CARDIAC Hx Hypertension: Yes - PULMONARY Hx Respiratory Disorders: No - NEUROLOGICAL Hx Neurological Disorder: No - HEENT Hx HEENT Problems: Yes Hx Cataracts: Yes - RENAL Hx Chronic Kidney Disease: No - ENDOCRINE/METABOLIC Hx Diabetes Mellitus Type 2: Yes - HEMATOLOGICAL/ONCOLOGICAL Hx Blood Disorders: No - INTEGUMENTARY Hx Dermatological Problems: No - MUSCULOSKELETAL/RHEUMATOLOGICAL Hx Arthritis: Yes (R HIP; B/L KNEE R>L; LB) - GASTROINTESTINAL Hx Gastrointestinal Disorders: Yes Hx Irritable Bowel: Yes - GENITOURINARY/GYNECOLOGICAL Hx Uterine Cancer: Yes (hysterectomy 2007) - PSYCHIATRIC Hx Anxiety: Yes Hx Depression: Yes Hx Substance Use: No - SURGICAL HISTORY Hx Cholecystectomy: Yes (1975) Hx Coronary Stent: Yes - ANESTHESIA Hx Anesthesia: Yes Hx Anesthesia Reactions: No Meds Allergies/Adverse Reactions: Allergies Allergy/AdvReac Type Severity Reaction Status Date / Time Penicillins Allergy Verified 11/14/16 13:58 - Medications Medications: Current Medications Acetaminophen (Tylenol 325mg Tab) 650 mg PO Q6 PRN PRN Reason: Pain, severe (8-10) Last Admin: 11/16/16 10:09 Dose: 650 mg Alprazolam (Xanax) 1 mg PO TID PRN PRN Reason: Anxiety Last Admin: 11/18/16 16:20 Dose: 1 mg Amlodipine Besylate (Norvasc) 10 mg PO DAILY [facility] Last Admin: 11/18/16 10:26 Dose: 10 mg Clopidogrel Bisulfate (Plavix) 75 mg PO DAILY [facility] Last Admin: 11/18/16 09:36 Dose: 75 mg Enoxaparin Sodium (Lovenox) 40 mg SC DAILY [facility] Last Admin: 11/18/16 09:38 Dose: 40 mg Fluoxetine HCl (Prozac) 40 mg PO DAILY [facility] Last Admin: 11/18/16 09:36 Dose: 40 mg Furosemide (Lasix) 20 mg PO DAILY [facility] Last Admin: 11/18/16 09:36 Dose: 20 mg Gabapentin (Neurontin) 100 mg PO TID [facility] Last Admin: 11/18/16 17:02 Dose: 100 mg Hydrochlorothiazide (Hydrodiuril) 25 mg PO DAILY [facility] Last Admin: 11/18/16 09:37 Dose: 25 mg Aztreonam 1 gm/ Sodium (Chloride) 100 mls @ 200 mls/hr IVPB Q8H [facility] Last Admin: 11/18/16 19:44 Dose: 200 mls/hr Insulin Glargine (Lantus) 47 unit SC HS [facility] Insulin Human Regular (Novolin R) 0 unit SC ACHS [facility] PRN Reason: Protocol Last Admin: 11/18/16 21:57 Dose: Not Given Insulin Human Regular (Novolin R) 12 unit SC TIDAC [facility] Last Admin: 11/18/16 17:02 Dose: 12 unit Losartan Potassium (Cozaar) 100 mg PO DAILY [facility] Last Admin: 11/18/16 09:38 Dose: 100 mg Naproxen (Anaprox Ds) 550 mg PO BID [facility] Last Admin: 11/18/16 17:02 Dose: 550 mg Nystatin (Nystop Topical Powder) 1 applic TOP BID [facility] Last Admin: 11/18/16 17:05 Dose: 1 applic Potassium Chloride (Potassium Chloride Oral Soln) 20 meq PO DAILY [facility] Last Admin: 11/18/16 09:38 Dose: 20 meq Rosuvastatin Calcium (Crestor) 10 mg PO HS [facility] Last Admin: 11/18/16 21:22 Dose: 10 mg Saccharomyces Boulardii (Florastor) 250 mg PO BID [facility] Last Admin: 11/18/16 17:01 Dose: 250 mg Trazodone HCl (Desyrel) 50 mg PO HS [facility] Last Admin: 11/18/16 21:21 Dose: 50 mg Results - Vital Signs Recent Vital Signs: Last Vital Signs Temp 98.2 F 11/18/16 16:16 Pulse 64 11/18/16 16:30 Resp 20 11/18/16 16:16 BP 105/70 11/18/16 16:30 Pulse Ox 95 11/18/16 16:30 - Labs Result Diagrams: 11/18/16 07:05 11/18/16 07:05 Labs: Laboratory Results - last 24 hr 11/18/16 11/18/16 11/18/16 01:31 07:05 07:05 WBC 8.8 RBC 4.44 Hgb 14.1 Hct 40.8 MCV 91.9 MCH 31.8 H MCHC 34.6 RDW 12.7 Plt Count 254 MPV 8.4 Neut % (Auto) 68.2 Lymph % (Auto) 16.9 L [place] % (Auto) 10.1 H Eos % (Auto) 4.1 H Baso % (Auto) 0.7 Neut # 6.0 Lymph # 1.5 [place] # 0.9 H Eos # 0.4 Baso # 0.1 Sodium 134 Potassium 3.4 L Chloride 95 L Carbon Dioxide 27 Anion Gap 15 BUN 43 H Creatinine 1.4 H Est GFR ( Amer) 45 Est GFR (Non-Af Amer) 37 POC Glucose (mg/dL) 341 H Random Glucose 268 H Calcium 8.0 L Phosphorus 4.6 H Magnesium 1.7 Total Bilirubin 0.5 AST 18 ALT 20 Alkaline Phosphatase 63 Total Protein 6.3 Albumin 3.1 L Globulin 3.1 Albumin/Globulin Ratio 1.0 Urine Color Urine Clarity Urine pH Ur Specific [place] Urine Protein Urine Glucose (UA) Urine Ketones Urine Blood Urine Nitrate Urine Bilirubin Urine Urobilinogen Ur Leukocyte Esterase Urine WBC (Auto) Urine RBC (Auto) Ur Squamous Epith Cells Urine Bacteria 11/18/16 11/18/16 11/18/16 07:46 11:23 16:36 WBC RBC Hgb Hct MCV MCH MCHC RDW Plt Count MPV Neut % (Auto) Lymph % (Auto) [place] % (Auto) Eos % (Auto) Baso % (Auto) Neut # Lymph # [place] # Eos # Baso # Sodium Potassium Chloride Carbon Dioxide Anion Gap BUN Creatinine Est GFR ( Amer) Est GFR (Non-Af Amer) POC Glucose (mg/dL) 319 H 412 H* Random Glucose Calcium Phosphorus Magnesium Total Bilirubin AST ALT Alkaline Phosphatase Total Protein Albumin Globulin Albumin/Globulin Ratio Urine Color Yellow Urine Clarity Hazy Urine pH 5.0 Ur Specific [place] 1.015 Urine Protein 1+ H Urine Glucose (UA) 3+ H Urine Ketones Negative Urine Blood 1+ H Urine Nitrate Negative Urine Bilirubin Negative Urine Urobilinogen Normal Ur Leukocyte Esterase 3+ H Urine WBC (Auto) 68 H Urine RBC (Auto) 6 H Ur Squamous Epith Cells 1 Urine Bacteria Many H 11/18/16 11/18/16 16:55 21:30 WBC RBC Hgb Hct MCV MCH MCHC RDW Plt Count MPV Neut % (Auto) Lymph % (Auto) [place] % (Auto) Eos % (Auto) Baso % (Auto) Neut # Lymph # [place] # Eos # Baso # Sodium Potassium Chloride Carbon Dioxide Anion Gap BUN Creatinine Est GFR ( Amer) Est GFR (Non-Af Amer) POC Glucose (mg/dL) 322 H 285 H Random Glucose Calcium Phosphorus Magnesium Total Bilirubin AST ALT Alkaline Phosphatase Total Protein Albumin Globulin Albumin/Globulin Ratio Urine Color Urine Clarity Urine pH Ur Specific [place] Urine Protein Urine Glucose (UA) Urine Ketones Urine Blood Urine Nitrate Urine Bilirubin Urine Urobilinogen Ur Leukocyte Esterase Urine WBC (Auto) Urine RBC (Auto) Ur Squamous Epith Cells Urine Bacteria
--- NOTE | 2016-11-19 02:33 | CON ---
INFECTIOUS DISEASE CONSULTATION DATE: REQUESTING BY: Dain Smart DO HISTORY OF PRESENT ILLNESS: This patient is a 70-year-old female. She has history of anxiety, depression, hypertension, hyperlipidemia, IBS, diabetes mellitus, coronary artery disease, came in after a fall. I am asked to see her for UTI. She is here after a fall. She is incontinent of urine at times and cannot hold her urine and wears a diaper. She is diabetic. She has a groin rash when she came in. So, when they did a urine culture it came out positive. ALLERGIES: SHE IS ALLERGIC TO PENICILLIN. SHE SAID SHE DEVELOPED RASHES LIKE MEASLES ON HER BODY ONCE SHE HAD PENICILLIN AT THAT TIME. 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 PAST MEDICAL HISTORY: Significant for depression, anxiety, hypertension, hyperlipidemia, IBS with diarrhea, diabetes, and coronary artery disease. PAST SURGICAL HISTORY: Cholecystectomy, hysterectomy due to uterine cancer, left foot second and third toe amputation have been [place] [address] Deleon. She had a hysterectomy done for uterine cancer, she says in 2007. She had cholecystectomy in 1975. Three stents placed, I think that is in the heart in two occasions. FAMILY HISTORY: She says she does not know about her father, but she knows her mother of rheumatic heart disease. SOCIAL HISTORY: She used to smoke 20 years ago and used to drink socially, but has not done at all in four years. No drugs. Lives alone as a homemaker and comes alone. REVIEW OF SYSTEMS: So, she is here after a fall. SHE IS ALLERGIC TO PENICILLIN. She denies any ears, nose, and throat problems. She does have leg edema. She is obese. She denies any cough. She denies any nausea, vomiting, or abdominal problems. She does have urinary incontinence, wears diapers, has joint problems, and frequent falls and anxiety and she has been here many times according to the nurse. She has hypertension, diabetes mellitus, leg edema, hyperlipidemia, anxiety, and depression. Surgeries hysterectomy, cholecystectomy, and coronary stents. MEDICATIONS: I find she is on Tylenol, Xanax, Norvasc, Plavix, Lovenox, Prozac, Lasix, Neurontin, hydrochlorothiazide, insulin coverage, and losartan. She is covered with her cardiology medicines for heart as well as neuropathy. PHYSICAL EXAMINATION: VITAL SIGNS: I find her temperature is 98.2, pulse 64, blood pressure 105/70, respirations are 20. GENERAL: She is alert, awake, and oriented. She communicates and able to give history. HEENT: Head is atraumatic and normocephalic. Eyes, eye movements are unremarkable. Tongue is moist. NECK: Supple. JVP is flat. Trachea is central. LUNGS: Clear to auscultation. No crackles or rales heard. Decreased breath sounds on both bases. HEART: S1 and S2 is regular. No murmur appreciates. ABDOMEN: Soft, nontender. No guarding. No rigidity present. EXTREMITIES: Bilateral edema present. LABORATORY DATA: Labs show white count is 8.8, hemoglobin 14.1, hematocrit 40.8, and platelet count is 254. Sodium is 134, potassium is 3.4, chloride is 95, anion gap is 15, BUN is 43, creatinine is 1.4, glucose is 319, albumin is 3.1. UA shows 1+ glucose, 3+ ketones, and WBC 68. WBC many, so she does have a UTI. She also has a groin rash, so at this time I will order some Lotrimin cream to her groin as well as her rectum 1 g q. 8 hours, I think it is a good choice, as this will cover for the UTI. In this patient with diabetes and hypertension, she may have diabetic neuropathy. It may be one of the reasons for her fall, but we will follow with the attending. Thank you for the consult. Nikky Kumar MD
[2016-11-19] MEDS: Aztreonam 1 GM in Sodium Chloride 0.9% 100 ML IVPB SCH ×3 (03:08→18:00)
[2016-11-19 07:37] LABS: BASO # 0.1 K/uL (0.0-0.2); BASO % 0.7 % (0.0-2.0); EOS # 0.5 K/uL (0.0-0.7); HEMATOCRIT 39.1 % (34.0-47.0); LYMPH # 1.6 K/uL (1.0-4.3); LYMPH % 20.8 % (20.0-40.0); MEAN CELL VOLUME 92.8 fL (81.0-99.0); MEAN CORPUSCULAR HEMOGLOBIN 31.8 pg (27.0-31.0); MEAN CORPUSCULAR HGB CONC 34.2 g/dL (33.0-37.0); MEAN PLATELET VOLUME 8.6 fL (7.2-11.7); MONO # 0.8 K/uL (0.0-0.8); MONO % 10.8 % (0.0-10.0); RED CELL DISTRIBUTION WIDTH 12.5 % (11.5-14.5); WHITE BLOOD COUNT 7.8 K/uL (4.8-10.8)
[2016-11-19 08:08] LABS: POTASSIUM 3.8 mmol/L (3.6-5.2)
[2016-11-19 08:10] LABS: BILIRUBIN,TOTAL 0.5 mg/dL (0.2-1.3); TOTAL PROTEIN 6.4 g/dL (6.3-8.3)
[2016-11-19 08:11] LABS: CALCIUM 8.3 mg/dl (8.6-10.4); MAGNESIUM 1.8 mg/dL (1.6-2.3); PHOSPHOROUS 4.6 mg/dL (2.5-4.5)
[2016-11-19] MEDS: Naproxen 550 mg Tab PO SCH ×2 (09:32→18:00)
[2016-11-19] MEDS: Enoxaparin 40 mg Syringe SC SCH (09:33)
[2016-11-19] MEDS: (Novolin R) Insulin Human Regular 100 units/ml vial SC SCH ×4 (09:48→12:09)
[2016-11-19] MEDS: Saccharomyces Boulardi 250 mg Cap PO SCH ×2 (10:34→18:00)
[2016-11-19] MEDS: Potassium Chloride 20 mEq/15 ml LIQ UD PO SCH (10:37)
[2016-11-19] MEDS: Clotrimazole/Betamethasone Cream(15 gm) TOP SCH ×2 (13:35→18:00)
--- NOTE | 2016-11-19 14:53 | CP.PCM.PN ---
<LisandroGriselda - Last Filed: 11/19/16 19:29> Subjective - Date & Time of Evaluation Date of Evaluation: 11/19/16 Time of Evaluation: 14:50 - Subjective Subjective: Patient seen and examined at bedside. Patient doing well with no new complaints at this time. Patient says she Is just worried about her cat, Liya, because she has not been able to find anyone to take care of her and the last time she was home to see her was last Thursday. Patient says she is still having LE pain and edema but is unchanged. She says she has urinary incontinence and would like to keep the Bennett catheter if she can to avoid using diapers. Patient denies fever, chills, CP, SOB, AP, N/V/D/C. Objective - Vital Signs/Intake and Output Vital Signs (last 24 hours): Temp Pulse Resp BP Pulse Ox 97.8 F 82 20 130/70 94 L 11/19/16 08:00 11/19/16 08:00 11/19/16 00:00 11/19/16 13:56 11/19/16 08:00 Intake and Output: 11/19/16 11/19/16 06:59 18:59 Intake Total 750 Output Total 950 Balance -200 - Medications Medications: Current Medications Acetaminophen (Tylenol 325mg Tab) 650 mg PO Q6 PRN PRN Reason: Pain, severe (8-10) Last Admin: 11/16/16 10:09 Dose: 650 mg Alprazolam (Xanax) 1 mg PO TID PRN PRN Reason: Anxiety Last Admin: 11/19/16 10:38 Dose: 1 mg Amlodipine Besylate (Norvasc) 10 mg PO DAILY [facility] Last Admin: 11/19/16 09:32 Dose: 10 mg Betamethasone/Clotrimazole (Lotrisone) 0 gm TOP BID [facility] Last Admin: 11/19/16 13:35 Dose: 1 applic Clopidogrel Bisulfate (Plavix) 75 mg PO DAILY [facility] Last Admin: 11/19/16 10:36 Dose: 75 mg Enoxaparin Sodium (Lovenox) 40 mg SC DAILY [facility] Last Admin: 11/19/16 09:33 Dose: 40 mg Fluoxetine HCl (Prozac) 40 mg PO DAILY [facility] Last Admin: 11/19/16 09:38 Dose: 40 mg Furosemide (Lasix) 20 mg PO DAILY [facility] Last Admin: 11/19/16 09:30 Dose: 20 mg Gabapentin (Neurontin) 100 mg PO TID [facility] Last Admin: 11/19/16 13:38 Dose: 100 mg Hydrochlorothiazide (Hydrodiuril) 25 mg PO DAILY [facility] Last Admin: 11/19/16 10:04 Dose: 25 mg Aztreonam 1 gm/ Sodium (Chloride) 100 mls @ 200 mls/hr IVPB Q8H [facility] Last Admin: 11/19/16 11:06 Dose: 200 mls/hr Insulin Aspart (Novolog) 14 unit SC AC [facility] Insulin Aspart (Novolog) 0 unit SC ACHS [facility] PRN Reason: Protocol Insulin Glargine (Lantus) 54 unit SC [facility] Losartan Potassium (Cozaar) 100 mg PO DAILY [facility] Last Admin: 11/19/16 10:04 Dose: 100 mg Naproxen (Anaprox Ds) 550 mg PO BID [facility] Last Admin: 11/19/16 09:32 Dose: 550 mg Potassium Chloride (Potassium Chloride Oral Soln) 20 meq PO DAILY [facility] Last Admin: 11/19/16 10:37 Dose: 20 meq Rosuvastatin Calcium (Crestor) 10 mg PO [facility] Last Admin: 11/18/16 21:22 Dose: 10 mg Saccharomyces Boulardii (Florastor) 250 mg PO BID [facility] Last Admin: 11/19/16 10:34 Dose: 250 mg Trazodone HCl (Desyrel) 50 mg PO [facility] Last Admin: 11/18/16 21:21 Dose: 50 mg - Labs Labs: 11/19/16 07:20 11/19/16 07:20 PT 10.4 SECONDS (9.7-12.2) 11/14/16 15:40 INR 0.9 11/14/16 15:40 APTT 29 SECONDS (21-34) 11/14/16 15:40 - Constitutional Appears: Non-toxic, No Acute Distress - Head Exam Head Exam: NORMAL INSPECTION - Eye Exam Eye Exam: EOMI Additional comments: Right eyelid droop (not new) - ENT Exam ENT Exam: Mucous Membranes Moist - Respiratory Exam Respiratory Exam: Clear to Ausculation Bilateral, NORMAL BREATHING PATTERN. absent: Rales, Rhonchi, Wheezes - Cardiovascular Exam Cardiovascular Exam: REGULAR RHYTHM, +S1, +S2, Murmur (KANDICE). absent: Bradycardia, Tachycardia - GI/Abdominal Exam GI & Abdominal Exam: Soft, Normal Bowel Sounds. absent: Tenderness - Extremities Exam Extremities Exam: Pedal Edema (b/l), Tenderness (b/l) - Neurological Exam Neurological Exam: Alert, Awake - Psychiatric Exam Psychiatric exam: Normal Affect, Normal Mood - Skin Skin Exam: Dry, Intact, Normal Color, Rash (groin ), Warm Assessment and Plan - Assessment and Plan (Free Text) Assessment: Mechanical Fall Case Management for possible rehab placement Head CT: stable unenhanced head CT with no intracranial hemorrhage or definite fracture appreciable. Knee X-ray: Bilateral and patellofemoral osteoarthritis. Mild medial right osteoarthritis. No acute fracture. Hip/Pelvis X-ray: Diffuse osteopenia suggests osteoporosis however there is no fracture or dislocation appreciated throughout the pelvic ring or bilateral hip joints. Degeneration changes seen at the bilateral sacroiliac and hip joints. Lumbar X-ray: Stable multilevel lumbar spondylosis including a mild dextroscoliotic spondylolisthesis is appreciable. Shoulder X-ray: No evidence of acute fracture or dislocation. Chest X-ray: No active disease ordered left shoulder x ray: no fracture or dislocation UTI ID consulted (Dr. Tai) - recs appreciated Urine culture: E. Coli (11/14) Aztreonam 1g IV Q8 Bennett will need to be removed due to positive repeat urine culture (11/18) for GNR f/u Blood culture Hypokalemia 20 Kdur given f/u cmp DM Consulted Endocrinology (Dr. Hernandez) - recs appreciated HgA1C (09/17/16): 12.4 ISS (high scale) Lantus 47U HS Novalog 12U TID AC Neurontin 100 mg PO TID accuchecks diabetic diet HTN Losartan 100 mg PO daily Lasix 40mg PO daily - patient unsure of why she is on this medication at home but thinks it is for her LE edema - likely causing declining kidney function (Cr-1.7) 25mg HTZ PO daily Depression/ anxiety Xanax 1 mg PO TID PRN Prozac 40 mg PO daily Trazodone 50 mg PO HS Fungal rash of groin discontinued Nystatin powder BID and started Lotrasone cream (11/19) Improving History of CAD plavix 75 mg PO daily ECHO (09/16/16): EF 50%; the left ventricle is normal size. There is normal left ventricular wall thickness. Left ventricle is boderline. There is normal LV segmental wall motion. Transmitral doppler chicho pattern is Grade I-abnormal relaxation pattern. Mitral regurgitation is mild. LE pain and edema venous doppler negative b/l Prophylactic Pepcid 20 mg PO BID Lovenox PT/OT <Dain Smart Lety - Last Filed: 11/19/16 20:56> Objective - Vital Signs/Intake and Output Vital Signs (last 24 hours): Temp Pulse Resp BP Pulse Ox 98.7 F 76 20 105/68 95 11/19/16 16:00 11/19/16 16:00 11/19/16 16:00 11/19/16 16:00 11/19/16 16:00 Intake and Output: 11/19/16 11/20/16 18:59 06:59 Intake Total 950 Output Total 1100 Balance -150 - Medications Medications: Current Medications Acetaminophen (Tylenol 325mg Tab) 650 mg PO Q6 PRN PRN Reason: Pain, severe (8-10) Last Admin: 11/16/16 10:09 Dose: 650 mg Alprazolam (Xanax) 1 mg PO TID PRN PRN Reason: Anxiety Last Admin: 11/19/16 18:00 Dose: 1 mg Amlodipine Besylate (Norvasc) 10 mg PO DAILY [facility] Last Admin: 11/19/16 09:32 Dose: 10 mg Betamethasone/Clotrimazole (Lotrisone) 0 gm TOP BID [facility] Last Admin: 11/19/16 13:35 Dose: 1 applic Clopidogrel Bisulfate (Plavix) 75 mg PO DAILY [facility] Last Admin: 11/19/16 10:36 Dose: 75 mg Enoxaparin Sodium (Lovenox) 40 mg SC DAILY [facility] Last Admin: 11/19/16 09:33 Dose: 40 mg Fluoxetine HCl (Prozac) 40 mg PO DAILY [facility] Last Admin: 11/19/16 09:38 Dose: 40 mg Gabapentin (Neurontin) 100 mg PO TID [facility] Last Admin: 11/19/16 18:00 Dose: 100 mg Aztreonam 1 gm/ Sodium (Chloride) 100 mls @ 200 mls/hr IVPB Q8H [facility] Last Admin: 11/19/16 18:00 Dose: 200 mls/hr Insulin Aspart (Novolog) 14 unit SC AC [facility] Last Admin: 11/19/16 18:01 Dose: 14 unit Insulin Aspart (Novolog) 0 unit SC ACHS [facility] PRN Reason: Protocol Last Admin: 11/19/16 18:02 Dose: 2 unit Insulin Glargine (Lantus) 54 unit SC HS [facility] Losartan Potassium (Cozaar) 100 mg PO DAILY [facility] Last Admin: 11/19/16 10:04 Dose: 100 mg Potassium Chloride (Potassium Chloride Oral Soln) 20 meq PO DAILY [facility] Last Admin: 11/19/16 10:37 Dose: 20 meq Rosuvastatin Calcium (Crestor) 10 mg PO HS [facility] Last Admin: 11/18/16 21:22 Dose: 10 mg Saccharomyces Boulardii (Florastor) 250 mg PO BID [facility] Last Admin: 11/19/16 18:00 Dose: 250 mg Trazodone HCl (Desyrel) 50 mg PO [facility] Last Admin: 11/18/16 21:21 Dose: 50 mg - Labs Labs: 11/19/16 07:20 11/19/16 07:20 PT 10.4 SECONDS (9.7-12.2) 11/14/16 15:40 INR 0.9 11/14/16 15:40 APTT 29 SECONDS (21-34) 11/14/16 15:40 Attending/Attestation - Attestation I have personally seen and examined this patient.: Yes I have fully participated in the care of the patient.: Yes I have reviewed all pertinent clinical information, including history, physical exam and plan: Yes Notes (Text): 11/19/16 20:46 Patient was seen and examined at 11:45 AM 11/19/16 Exam, Assessment and Plan were gone over with the resident. Please also note for ROS: Bilateral Lower Leg soreness that comes and goes Some dizziness earlier when changing position lasting a few seconds Some itchiness in the bilateral groin area Moved her bowels without difficulty Please also note for Exam: HEENT: Right top eyelid lower than left (been present for some time now) Skin: bilateral Fungal rash has improved in the inguinal area however present in the groin and perineum. NO ulcer noted on buttocks, sacram, or any of the florencio prominences (checked with DENILSON Germain) Extremities: there is no edema, pulses are strong and equal, capillary refill is 2 seconds, Left Foot Toes #2 and #3 amputation Please also note for Assessment and Plan: Acute Renal Insufficiency: this is likely secondary to the Lasix, HCTZ ( medications patient stated that she was on for her swelling in the legs, however please note that the patient's legs are not swollen but are likely her body habitus) and Naprosyn which were all discontinued 11/19/16. Placed on gentle hydration of NS 65 ml per hour. Bilateral Renal U/S ordered. Nephrology Dr. Marcos consulted for further recommendations UTI: urine culture 11/14/16 showed E. coli and patient is on Aztreonam. Repeat Urine Culture 11/18/16 was positive and therefore will have to convince patient to have Bennett removed which she is resistant to. F/U Blood Culture 11/18/16. Also ID Dr. Kumar consultation placed for further recommendations DM 1: between 8 AM 11/17/16 and 8 AM 11/18/16, patient required an additional 50 units of rapid acting insulin on sliding scale. Therefore 25 units added to Lantus which is now at 47 units HS and the other 25 units split 3 ways and added to premeal Novolin R which is now at 12 units AC meals. Bilateral Groin/Perineum Fungal Rash: Nystatin Powder was discontinued and placed on Lotrisone Cream 2x/day Prophylaxis: patient is on Lovenox for DVT prophylaxis and Plavix for her history of CAD Dain Smart D.O.
[2016-11-19] MEDS: (Novolog) Insulin Aspart, Recombinant 100 u/ml 10 ml vial SC SCH ×3 (18:01→22:57)
--- NOTE | 2016-11-19 21:20 | PN ---
SUBJECTIVE: The patient says that she has been getting water pills and it will be difficult for her as she is incontinent and she already has a groin rash, it will get worse if she is exposed to urination, so she wants to keep the Bennett for now and she is concerned about her cats at home and she wants to go home, but she has been falling. PHYSICAL EXAMINATION: VITAL SIGNS: T-max is 98.7, pulse is 76, blood pressure 105/68, respirations are 20. HEENT: Head is atraumatic and normocephalic. NECK: Supple. She is obese. LUNGS: Clear. HEART: S1 and S2 is regular. ABDOMEN: Soft, nontender. No guarding, no rigidity present. EXTREMITIES: She does have edema and left lower extremity pain. LABORATORY DATA: Labs are noted. Labs show white count is 7.28, hemoglobin 13.4, hematocrit 39.1, platelet count is 266. Her urine culture is now finalized to be E. coli and this E. coli is sensitive to Azactam, she is on it, today is the second day and to continue 3 to 5 days of the treatment and if she really wants to go home, once she is given 3 days she can go on nitrofurantoin for a week as she is diabetic. Nikky Kumar MD
--- NOTE | 2016-11-19 21:21 | CP.PCM.PN ---
Subjective - Date & Time of Evaluation Date of Evaluation: 11/19/16 Time of Evaluation: 06:50 - Subjective Subjective: dictated Objective - Vital Signs/Intake and Output Vital Signs (last 24 hours): Temp Pulse Resp BP Pulse Ox 98.7 F 76 20 105/68 95 11/19/16 16:00 11/19/16 16:00 11/19/16 16:00 11/19/16 16:00 11/19/16 16:00 Intake and Output: 11/19/16 11/20/16 18:59 06:59 Intake Total 950 Output Total 1100 Balance -150 - Medications Medications: Current Medications Acetaminophen (Tylenol 325mg Tab) 650 mg PO Q6 PRN PRN Reason: Pain, severe (8-10) Last Admin: 11/16/16 10:09 Dose: 650 mg Alprazolam (Xanax) 1 mg PO TID PRN PRN Reason: Anxiety Last Admin: 11/19/16 18:00 Dose: 1 mg Amlodipine Besylate (Norvasc) 10 mg PO DAILY [facility] Last Admin: 11/19/16 09:32 Dose: 10 mg Betamethasone/Clotrimazole (Lotrisone) 0 gm TOP BID [facility] Last Admin: 11/19/16 13:35 Dose: 1 applic Clopidogrel Bisulfate (Plavix) 75 mg PO DAILY [facility] Last Admin: 11/19/16 10:36 Dose: 75 mg Enoxaparin Sodium (Lovenox) 40 mg SC DAILY [facility] Last Admin: 11/19/16 09:33 Dose: 40 mg Fluoxetine HCl (Prozac) 40 mg PO DAILY [facility] Last Admin: 11/19/16 09:38 Dose: 40 mg Gabapentin (Neurontin) 100 mg PO TID [facility] Last Admin: 11/19/16 18:00 Dose: 100 mg Aztreonam 1 gm/ Sodium (Chloride) 100 mls @ 200 mls/hr IVPB Q8H [facility] Last Admin: 11/19/16 18:00 Dose: 200 mls/hr Sodium Chloride (Sodium Chloride 0.9%) 1,000 mls @ 65 mls/hr IV .[id number] [facility] Insulin Aspart (Novolog) 14 unit SC AC [facility] Last Admin: 11/19/16 18:01 Dose: 14 unit Insulin Aspart (Novolog) 0 unit SC ACHS [facility] PRN Reason: Protocol Last Admin: 11/19/16 18:02 Dose: 2 unit Insulin Glargine (Lantus) 54 unit SC HS [facility] Losartan Potassium (Cozaar) 100 mg PO DAILY [facility] Last Admin: 11/19/16 10:04 Dose: 100 mg Potassium Chloride (Potassium Chloride Oral Soln) 20 meq PO DAILY [facility] Last Admin: 11/19/16 10:37 Dose: 20 meq Rosuvastatin Calcium (Crestor) 10 mg PO HS [facility] Last Admin: 11/18/16 21:22 Dose: 10 mg Saccharomyces Boulardii (Florastor) 250 mg PO BID [facility] Last Admin: 11/19/16 18:00 Dose: 250 mg Trazodone HCl (Desyrel) 50 mg PO HS [facility] Last Admin: 11/18/16 21:21 Dose: 50 mg - Labs Labs: 11/19/16 07:20 11/19/16 07:20 PT 10.4 SECONDS (9.7-12.2) 11/14/16 15:40 INR 0.9 11/14/16 15:40 APTT 29 SECONDS (21-34) 11/14/16 15:40
--- NOTE | 2016-11-19 22:51 | US ---
EXAM: US Retroperitoneal Ltd Kidney EXAM DATE/TIME: 11/19/2016 8:57 PM CLINICAL HISTORY: 70 years old, female; Signs and symptoms; Other: Elevated bun / cr; Additional info: Elevated bun/cr TECHNIQUE: Real-time ultrasound of the retroperitoneal ltd kidney with image documentation. COMPARISON: No relevant prior studies available. FINDINGS: Both kidneys measure approximately 10 cm in length. There is thinning of the right renal cortex. The left renal cortex is lobulated. No masses. No hydronephrosis. No calculi. The urinary bladder is underdistended. Nonvisualization of the aorta. IMPRESSION: No acute findings.
[2016-11-19] MEDS: (Lantus) Insulin Glargine, Recombinant SC SCH (22:54)
[2016-11-19] MEDS: Sodium Chloride 0.9% 1,000 ML IV SCH (23:14)
--- NOTE | 2016-11-20 01:28 | CON ---
ENDOCRINOLOGY CONSULT ROOM #[id number] HISTORY OF PRESENT ILLNESS: This is a 70-year-old morbidly obese female with known history of type 2 insulin requiring diabetes, presenting here with a recent fall at home sustaining contusions and joint pains and is now being required for endocrine evaluation because of persistent hyperglycemic accelerations as noted thereof. PAST MEDICAL HISTORY: As mentioned above, history of type 2 insulin requiring diabetes, currently using Levemir given as 15 units subcu twice daily with NovoLog given as 10 units t.i.d. before meals. She is also on Janumet given at 51,000 b.i.d. as ordered. History of hypertension, cardiovascular disease, and dyslipidemia, history of diabetic retinopathy, polyneuropathy, and nephropathy with underlying chronic kidney disease, history of coronary artery disease with peripheral arterial disease and vasculopathy, history of irritable bowel syndrome with episodic diarrhea. She also has significant history of generalized anxiety and depression, currently using psychotropic medications and followed closely by Dr. Sahu, her psychiatrist. History of generalized osteoarthritis with low back pain and joint and hip pain as noted. History of coronary artery disease with previous coronary stent placement as noted. History of a prior cholecystectomy and subsequent hysterectomy for uterine cancer. She also has previous toe amputations in the left foot, in the second and third toe as noted in 2014. FAMILY HISTORY: Positive for diabetes and hypertension. SOCIAL HISTORY: The patient has a supportive family with prior history of nicotine dependence, but quit smoking about 20 years ago. Also admits to social use of alcohol. She lives alone with homemaker services being given. REVIEW OF SYSTEMS: As mentioned above. Admits to generalized body weakness with easy fatigability and tiredness, suboptimal energy level, also admits to episodic dizziness and lightheadedness, worse on the day of admission. No chest pains or palpitations, but admits to progressive shortness of breath, especially on exertion. Her oral intake is variable and suboptimal with nausea, dyspepsia, vague upper abdominal pains. Also admits to habitual constipation and urinary incontinence. PHYSICAL EXAMINATION VITAL SIGNS: This is an obese female, in no apparent distress with a blood pressure of 150/90, pulse of 100 beats per minute and regular, temperature 98, and respirations 20. Height is 5 feet 6 inches, weight is 300 pounds. HEENT: Head normocephalic. Eyes, anicteric with pink conjunctivae. Funduscopy not possible at this time. Ears, nose, and throat otherwise normal. NECK: Supple. Thyroid gland is normal size. No carotid bruits or any cervical adenopathy. CARDIOPULMONARY: Adynamic precordium. S1 and S2 is rapid and regular. LUNGS: Show scattered rhonchi. ABDOMEN: Flat and soft with positive bowel sounds. EXTREMITIES: No peripheral edema. Pulses are +2 bilaterally. LABORATORY DATA: Her glucose levels are quite fluctuating and elevated, ranging from 285 to 341 and 412 mg/dL. Her latest chemistries showed a BUN of 53, sodium 136, potassium 3.8, chloride 97, CO2 of 28, glucose 299, and creatinine 1.7. ASSESSMENT: This is a 70-year-old female with uncontrolled and decompensated type 2 insulin requiring diabetes with persistent hyperglycemic accelerations and in now being followed closely for metabolic management. She also has diabetic microvascular complications of retinopathy, polyneuropathy, and nephropathy with underlying chronic kidney disease. Moreover, she also has diabetic macrovascular complications of coronary artery disease with peripheral arterial disease and vasculopathy and prior toe amputations in the left foot as mentioned. I thought just to add, she also has coronary artery disease with previous coronary stent placement as noted. PLAN: Plan of management is discussed with the patient and staff. We will modify her current basal and bolus insulin regimen for more predictable and more accurate dose combination as mentioned. We will switch her to more physiologic dose combination with Lantus to be given as a higher dose of 54 units subcu at bedtime daily, to start tonight. We will also add NovoLog given as 14 units subcu t.i.d. before meals, to start at dinner time today as ordered. We will modify the coverage scale to avoid hypoglycemia and detailed orders have been given for NovoLog insulin as ordered. We will obtain serial chemistries and supplement accordingly as needed. We will follow with you. Jojo Hernandez MD
[2016-11-20] MEDS: Aztreonam 1 GM in Sodium Chloride 0.9% 100 ML IVPB SCH ×3 (03:05→19:00)
[2016-11-20] MEDS: (Novolog) Insulin Aspart, Recombinant 100 u/ml 10 ml vial SC SCH ×7 (08:28→22:08)
--- NOTE | 2016-11-20 08:32 | CP.PCM.CON ---
History of Present Illness - History of Present Illness History of Present Illness: PGY-[address] Marcos's Nephrology service: Reason for consult: Acute renal insufficiency HPI: Patient is a 70 year old female with past medical history of anxiety, depression, hypertension, hyperlipidemia, IBS with diarrhea, DM, CAD who presented to the [facility] ED on 11/17/16, after a mechanical fall in her home. She denies loss of consciousness. She reports history of multiple prior falls, the last one being one month ago, when she was hospitalized and then sent to a rehab facility for physical therapy. She states she does receive physical therapy at home but is still weak. She also states she chronically cannot hold her urine so she uses a diaper. Patient admits taking Lasix and HCTZ, and Naprosyn as home medications for "leg swelling" and "leg pain" respectively. She states these meds were started by Dr. Yates, the patients PMD. Patient reports history of Type 1 Diabetes since childhood. She does not remember her medications for the diabetes she was given at [facility] [place]. A1C at time of admission was 12.4. Pt seen and examined at bedside. She reports feeling better today, but becomes tearful easily about her cat. Her only complaint is continued leg weakness, which is chronic finding, that makes her feel unsteady on her feet. She admits history of urinary incontinence and reports patel catheter was in use at [facility] [place]. Patient is being treated for UTI, and denies fever, chills, blurry vision, dysuria, burning, hematuria, flank pain or change in frequency (pt has baseline incontinence). PMD: Dr. Nathaniel Yates, Dr. Sahu (psych), Dr. 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 3 stents placed - 2 at one time and 1 placed about 1 year ago Family history: mom of rheumatic heart disease Social History: stopped smoking tobacco 20 years ago, used to drink socially, but has not at all in 4 years, no drug; lives home alone but has a home-maker who comes 6x per week to help, also has a home alert button Review of Systems - Constitutional Constitutional: absent: Chills, Fever - EENT Eyes: absent: Blurred Vision, Change in Vision Nose/Mouth/Throat: absent: Sore Throat - Cardiovascular Cardiovascular: absent: Chest Pain, Dyspnea - Respiratory Respiratory: absent: Dyspnea - Gastrointestinal Gastrointestinal: absent: Abdominal Pain, Nausea, Vomiting - Genitourinary Genitourinary: absent: Difficulty Urinating, Dysuria, Flank Pain, Hematuria - Musculoskeletal Musculoskeletal: Muscle Weakness (legs bilaterally) - Integumentary Integumentary: Rash (interigenous region) - Neurological Neurological: Weakness (lower extremities). absent: Numbness, Headaches, Tingling - Endocrine Endocrine: absent: Fatigue, Polydipsia, Polyphagia, Polyuria - Hematologic/Lymphatic Hematologic: absent: Easy Bruising Past Patient History - Infectious Disease Hx of Infectious Diseases: None - Past Medical History & Family History Past Medical History?: Yes - Past Social History Smoking Status: Never Smoked - CARDIAC Hx Hypertension: Yes - PULMONARY Hx Respiratory Disorders: No - NEUROLOGICAL Hx Neurological Disorder: No - HEENT Hx HEENT Problems: Yes Hx Cataracts: Yes - RENAL Hx Chronic Kidney Disease: No - ENDOCRINE/METABOLIC Hx Diabetes Mellitus Type 2: Yes - HEMATOLOGICAL/ONCOLOGICAL Hx Blood Disorders: No - INTEGUMENTARY Hx Dermatological Problems: No - MUSCULOSKELETAL/RHEUMATOLOGICAL Hx Arthritis: Yes (R HIP; B/L KNEE R>L; LB) - GASTROINTESTINAL Hx Gastrointestinal Disorders: Yes Hx Irritable Bowel: Yes - GENITOURINARY/GYNECOLOGICAL Hx Uterine Cancer: Yes (hysterectomy 2007) - PSYCHIATRIC Hx Anxiety: Yes Hx Depression: Yes Hx Substance Use: No - SURGICAL HISTORY Hx Cholecystectomy: Yes (1975) Hx Coronary Stent: Yes - ANESTHESIA Hx Anesthesia: Yes Hx Anesthesia Reactions: No Meds Allergies/Adverse Reactions: Allergies Allergy/AdvReac Type Severity Reaction Status Date / Time Penicillins Allergy Verified 11/14/16 13:58 - Medications Medications: Current Medications Acetaminophen (Tylenol 325mg Tab) 650 mg PO Q6 PRN PRN Reason: Pain, severe (8-10) Last Admin: 11/16/16 10:09 Dose: 650 mg Alprazolam (Xanax) 1 mg PO TID PRN PRN Reason: Anxiety Last Admin: 11/19/16 18:00 Dose: 1 mg Amlodipine Besylate (Norvasc) 10 mg PO DAILY [facility] Last Admin: 11/19/16 09:32 Dose: 10 mg Betamethasone/Clotrimazole (Lotrisone) 0 gm TOP BID [facility] Last Admin: 11/19/16 18:00 Dose: 1 applic Clopidogrel Bisulfate (Plavix) 75 mg PO DAILY [facility] Last Admin: 11/19/16 10:36 Dose: 75 mg Enoxaparin Sodium (Lovenox) 40 mg SC DAILY [facility] Last Admin: 11/19/16 09:33 Dose: 40 mg Fluoxetine HCl (Prozac) 40 mg PO DAILY [facility] Last Admin: 11/19/16 09:38 Dose: 40 mg Gabapentin (Neurontin) 100 mg PO TID [facility] Last Admin: 11/19/16 18:00 Dose: 100 mg Aztreonam 1 gm/ Sodium (Chloride) 100 mls @ 200 mls/hr IVPB Q8H [facility] Last Admin: 11/20/16 03:05 Dose: 200 mls/hr Sodium Chloride (Sodium Chloride 0.9%) 1,000 mls @ 65 mls/hr IV .[id number] [facility] Last Admin: 11/19/16 23:14 Dose: 65 mls/hr Insulin Aspart (Novolog) 14 unit SC AC [facility] Last Admin: 11/20/16 08:28 Dose: 14 unit Insulin Aspart (Novolog) 0 unit SC ACHS [facility] PRN Reason: Protocol Last Admin: 11/20/16 08:30 Dose: Not Given Insulin Glargine (Lantus) 54 unit SC [facility] Last Admin: 11/19/16 22:54 Dose: 54 units Losartan Potassium (Cozaar) 100 mg PO DAILY [facility] Last Admin: 11/19/16 10:04 Dose: 100 mg Potassium Chloride (Potassium Chloride Oral Soln) 20 meq PO DAILY [facility] Last Admin: 11/19/16 10:37 Dose: 20 meq Rosuvastatin Calcium (Crestor) 10 mg PO [facility] Last Admin: 11/19/16 22:54 Dose: 10 mg Saccharomyces Boulardii (Florastor) 250 mg PO BID [facility] Last Admin: 11/19/16 18:00 Dose: 250 mg Trazodone HCl (Desyrel) 50 mg PO [facility] Last Admin: 11/19/16 22:54 Dose: 50 mg Physical Exam - Constitutional Appears: Non-toxic, No Acute Distress - Head Exam Head Exam: ATRAUMATIC, NORMOCEPHALIC - Eye Exam Eye Exam: EOMI Pupil Exam: PERRL Additional comments: Wearing glasses Right eyelid drooping, chronic - ENT Exam ENT Exam: Mucous Membranes Moist - Neck Exam Additional comments: Large body habitus, makes assessing JVD difficult - Respiratory Exam Respiratory Exam: Clear to Auscultation Bilateral, NORMAL BREATHING PATTERN. absent: Rales, Rhonchi, Wheezes - Cardiovascular Exam Cardiovascular Exam: REGULAR RHYTHM, +S1, +S2, Systolic Murmur - GI/Abdominal Exam GI & Abdominal Exam: Normal Bowel Sounds, Soft. absent: Tenderness - Extremities Exam Extremities exam: Positive for: pedal edema (1+ pitting, b/l), tenderness ( bilaterally) Additional comments: Amputations of 2/3rd digit on left foot noted - Back Exam Back exam: absent: CVA tenderness (L), CVA tenderness (R) - Neurological Exam Neurological exam: Alert, Oriented x3 Additional comments: Light touch intact through all dermatomes of lower extremity below knee, proprioception intact, Sharp/dull sensation intact - Psychiatric Exam Additional comments: Tearful over situation of house cat - Skin Additional comments: Rash in groin region Results - Vital Signs Recent Vital Signs: Last Vital Signs Temp 97.5 F L 11/20/16 07:37 Pulse 68 11/20/16 07:37 Resp 20 11/20/16 07:37 BP 129/75 11/20/16 07:37 Pulse Ox 95 11/20/16 07:37 - Labs Result Diagrams: 11/19/16 07:20 11/19/16 07:20 Labs: Laboratory Results - last 24 hr 11/19/16 11/19/16 11/19/16 11:36 16:21 21:36 POC Glucose (mg/dL) 341 H 325 H 197 H 11/20/16 07:19 POC Glucose (mg/dL) 178 H Assessment & Plan - Assessment and Plan (Free Text) Plan: Acute Kidney Injury Etiology believed to be multi-factorial: due to blood pressure decreased too much from baseline (from ~200/100 on admission to ~100/60 within short time- frame), volume depletion, and combination of nephrotoxic medications -Pt home meds: Lasix 20mg Daily, HCTZ 25mg PO Daily, Naproxen stopped by primary team yesterday (11/19) - pt admits to difficulty keeping track of home medication regimen, admits to not taking losartan or lasix at home Baseline Cr: 1.0, 0.8 on admission - 11/19/16: 1.7 Renal US (11/19/16): No acute findings. Both kidneys 10 cm in length. Thinning of right renal cortex. Left cortex lobulated. No masses, no hydronephrosis. ( see full report) Proteinuria: UA: 1-2+ consistent through all available EMR (06/16 until now) f/u random creatinine, sodium, total protein f/u repeat UA Type 1 Diabetes Mellitus Poorly controlled: A1C 12.4 on admission Endo consulted: BG improving HTN Well controlled Norvasc 10 mg PO QD Discontinued nephrotoxic medications: Lasix, HCTZ, Losartan NS @ 65cc/h UTI Management per primary/ID ID (Dr. Kumar) - recs appreciated UA: 11/18 - 3+ LE, 68 WBC, Many bacteria Urine RBC 6, Urine culture (11/14): E. Coli Urine culture (11/18, catheter): E. Coli, Gram Positive Cocci Aztreonam 1g IV Q8 Discussed with Dr. Hemant Ramey PGY-1
[2016-11-20] MEDS: Saccharomyces Boulardi 250 mg Cap PO SCH ×2 (10:35→17:58)
[2016-11-20] MEDS: Enoxaparin 40 mg Syringe SC SCH (10:36)
[2016-11-20] MEDS: Potassium Chloride 20 mEq/15 ml LIQ UD PO SCH (10:38)
[2016-11-20] MEDS: Clotrimazole/Betamethasone Cream(15 gm) TOP SCH ×2 (10:39→18:01)
[2016-11-20] MEDS: Sodium Chloride 0.9% 1,000 ML IV SCH (14:25)
--- NOTE | 2016-11-20 17:56 | PN ---
ENDOCRINOLOGY FOLLOWUP NOTE LOCATION: Room #356. This is a 70-year-old female with recent uncontrolled type 2 insulin-requiring diabetes, now being followed closely for metabolic management. She is undergoing also IV antibiotic management for a urinary tract infection as noted. Her glycemic levels are fluctuating, but improved and the latest glucose levels have ranged from 178 to 197 and 287 mg/dL. Her latest chemistry showed a BUN of 53, sodium 136, potassium 3.8, chloride 97, CO2 of 28, glucose 299 and creatinine of 1.7, so at this time, we will continue the same basal and bolus insulin regimen to allow for dose equilibration and keep her on NovoLog given as 14 units subQ t.i.d. before meals as ordered. We will continue the Lantus, given as 54 units subQ at bedtime daily, to start to night. We will also continue the low-dose correction scale using NovoLog insulin as given. We will titrate incrementally as indicated to optimize metabolic control. A very lengthy bedside discussion was undertaken today with the patient regarding healthy food and also to minimize her preference for concentrated sweets and chocolates and candies as discussed at bedside with a need to reverse the ratio for a higher protein than the carb intake as outpatient. We will obtain serial chemistries and supplemental accordingly as needed. We will follow. Jojo Hernandez MD
--- NOTE | 2016-11-20 20:01 | CP.PCM.PN ---
Subjective - Date & Time of Evaluation Date of Evaluation: 11/20/16 Time of Evaluation: 19:54 - Subjective Subjective: Patient seen and examined at bedside. Patient doing well with no new complaints at this time. Patient still worried about her cat, Liya, because she has not been able to find anyone to take care of her and the last time she was home to see her was last Thursday. Patient is upset about the removal of her Bennett catheter but understands that it had to be removed because of the infection. She understands that she will need help transferring to the bedside toilet as needed to have a bowel movement. Patient says she is still having LE pain and edema but is unchanged. Patient denies fever, chills, CP, SOB, AP, N/V/D/C. Objective - Vital Signs/Intake and Output Vital Signs (last 24 hours): Temp Pulse Resp BP Pulse Ox 97.5 F L 68 20 129/75 95 11/20/16 07:37 11/20/16 07:37 11/20/16 07:37 11/20/16 07:37 11/20/16 07:37 Intake and Output: 11/20/16 11/21/16 18:59 06:59 Intake Total 2300 Output Total 1800 Balance 500 - Medications Medications: Current Medications Acetaminophen (Tylenol 325mg Tab) 650 mg PO Q6 PRN PRN Reason: Pain, severe (8-10) Last Admin: 11/16/16 10:09 Dose: 650 mg Alprazolam (Xanax) 1 mg PO TID PRN PRN Reason: Anxiety Last Admin: 11/20/16 10:35 Dose: 1 mg Amlodipine Besylate (Norvasc) 10 mg PO DAILY [facility] Last Admin: 11/20/16 10:36 Dose: 10 mg Betamethasone/Clotrimazole (Lotrisone) 0 gm TOP BID [facility] Last Admin: 11/20/16 18:01 Dose: 1 applic Clopidogrel Bisulfate (Plavix) 75 mg PO DAILY [facility] Last Admin: 11/20/16 10:32 Dose: 75 mg Enoxaparin Sodium (Lovenox) 40 mg SC DAILY [facility] Last Admin: 11/20/16 10:36 Dose: 40 mg Fluoxetine HCl (Prozac) 40 mg PO DAILY [facility] Last Admin: 09/21/17 10:36 Dose: 40 mg Gabapentin (Neurontin) 100 mg PO TID [facility] Last Admin: 11/20/16 17:59 Dose: 100 mg Aztreonam 1 gm/ Sodium (Chloride) 100 mls @ 200 mls/hr IVPB Q8H [facility] Last Admin: 11/20/16 11:22 Dose: 200 mls/hr Sodium Chloride (Sodium Chloride 0.9%) 1,000 mls @ 65 mls/hr IV .[id number] [facility] Last Admin: 11/20/16 14:25 Dose: Not Given Linezolid (Zyvox 600mg/300ml D5w) 600 mg in 300 mls @ 200 mls/hr IVPB Q12 [facility] Insulin Aspart (Novolog) 14 unit SC AC [facility] Last Admin: 11/20/16 17:59 Dose: 14 unit Insulin Aspart (Novolog) 0 unit SC ACHS [facility] PRN Reason: Protocol Last Admin: 11/20/16 16:30 Dose: Not Given Insulin Glargine (Lantus) 54 unit SC [facility] Last Admin: 11/19/16 22:54 Dose: 54 units Losartan Potassium (Cozaar) 100 mg PO DAILY [facility] Last Admin: 11/20/16 10:36 Dose: 100 mg Potassium Chloride (Potassium Chloride Oral Soln) 20 meq PO DAILY [facility] Last Admin: 11/20/16 10:38 Dose: 20 meq Rosuvastatin Calcium (Crestor) 10 mg PO [facility] Last Admin: 11/19/16 22:54 Dose: 10 mg Saccharomyces Boulardii (Florastor) 250 mg PO BID [facility] Last Admin: 11/20/16 17:58 Dose: 250 mg Trazodone HCl (Desyrel) 50 mg PO [facility] Last Admin: 11/19/16 22:54 Dose: 50 mg - Labs Labs: 11/19/16 07:20 11/19/16 07:20 PT 10.4 SECONDS (9.7-12.2) 11/14/16 15:40 INR 0.9 11/14/16 15:40 APTT 29 SECONDS (21-34) 11/14/16 15:40 - Additional Findings Additional findings: - Constitutional Appears: Non-toxic, No Acute Distress - Head Exam Head Exam: NORMAL INSPECTION - Eye Exam Eye Exam: EOMI Additional comments: Right eyelid droop (not new) - ENT Exam ENT Exam: Mucous Membranes Moist - Respiratory Exam Respiratory Exam: Clear to Ausculation Bilateral, NORMAL BREATHING PATTERN. absent: Rales, Rhonchi, Wheezes - Cardiovascular Exam Cardiovascular Exam: REGULAR RHYTHM, +S1, +S2, Murmur (KANDICE). absent: Bradycardia, Tachycardia - GI/Abdominal Exam GI & Abdominal Exam: Soft, Normal Bowel Sounds. 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 Knee X-ray: Bilateral and patellofemoral osteoarthritis. Mild medial right osteoarthritis. No acute fracture. Hip/Pelvis X-ray: Diffuse osteopenia suggests osteoporosis however there is no fracture or dislocation appreciated throughout the pelvic ring or bilateral hip joints. Degeneration changes seen at the bilateral sacroiliac and hip joints. Lumbar X-ray: Stable multilevel lumbar spondylosis including a mild dextroscoliotic spondylolisthesis is appreciable. Shoulder X-ray: No evidence of acute fracture or dislocation. Chest X-ray: No active disease ordered left shoulder x ray: no fracture or dislocation UTI ID consulted (Dr. Tai) - recs appreciated Urine culture: E. Coli (11/14) Aztreonam 1g IV Q8 Bennett will need to be removed due to positive repeat urine culture (11/18) for GNR Blood culture: S. Aureus * Linezolid 600 mg IV Q12 Hypokalemia 20 Kdur given f/u cmp DM Consulted Endocrinology (Dr. Hernandez) - recs appreciated HgA1C (09/17/16): 12.4 ISS (high scale) Lantus 54U HS - Per Dr. Hernandez Novalog 14U TID AC - Per Dr. Hernandez Neurontin 100 mg PO TID accuchecks diabetic diet HTN Norvasc 10 mg PO QD Dicontinued Lasix 40mg PO daily, 25mg HTZ PO daily, and Losartan 100 mg PO daily - likely causing declining kidney function * NS @ 65cc/h * Follow up kidney function Depression/ anxiety Xanax 1 mg PO TID PRN Prozac 40 mg PO daily Trazodone 50 mg PO HS Fungal rash of groin discontinued Nystatin powder BID and started Lotrasone cream (11/19) Improving History of CAD plavix 75 mg PO daily ECHO (09/16/16): EF 50%; the left ventricle is normal size. There is normal left ventricular wall thickness. Left ventricle is boderline. There is normal LV segmental wall motion. Transmitral doppler chicho pattern is Grade I-abnormal relaxation pattern. Mitral regurgitation is mild. LE pain and edema venous doppler negative b/l Prophylactic Pepcid 20 mg PO BID Lovenox PT/OT
--- NOTE | 2016-11-20 20:15 | CP.PCM.PN ---
Subjective - Date & Time of Evaluation Date of Evaluation: 11/20/16 Time of Evaluation: 04:30 - Subjective Subjective: dictated Objective - Vital Signs/Intake and Output Vital Signs (last 24 hours): Temp Pulse Resp BP Pulse Ox 97.5 F L 68 20 129/75 95 11/20/16 07:37 11/20/16 07:37 11/20/16 07:37 11/20/16 07:37 11/20/16 07:37 Intake and Output: 11/20/16 11/21/16 18:59 06:59 Intake Total 2300 Output Total 1800 Balance 500 - Medications Medications: Current Medications Acetaminophen (Tylenol 325mg Tab) 650 mg PO Q6 PRN PRN Reason: Pain, severe (8-10) Last Admin: 11/16/16 10:09 Dose: 650 mg Alprazolam (Xanax) 1 mg PO TID PRN PRN Reason: Anxiety Last Admin: 11/20/16 10:35 Dose: 1 mg Amlodipine Besylate (Norvasc) 10 mg PO DAILY [facility] Last Admin: 11/20/16 10:36 Dose: 10 mg Betamethasone/Clotrimazole (Lotrisone) 0 gm TOP BID [facility] Last Admin: 11/20/16 18:01 Dose: 1 applic Clopidogrel Bisulfate (Plavix) 75 mg PO DAILY [facility] Last Admin: 11/20/16 10:32 Dose: 75 mg Enoxaparin Sodium (Lovenox) 40 mg SC DAILY [facility] Last Admin: 11/20/16 10:36 Dose: 40 mg Fluoxetine HCl (Prozac) 40 mg PO DAILY [facility] Last Admin: 11/20/16 10:36 Dose: 40 mg Gabapentin (Neurontin) 100 mg PO TID [facility] Last Admin: 11/20/16 17:59 Dose: 100 mg Aztreonam 1 gm/ Sodium (Chloride) 100 mls @ 200 mls/hr IVPB Q8H [facility] Last Admin: 11/20/16 11:22 Dose: 200 mls/hr Sodium Chloride (Sodium Chloride 0.9%) 1,000 mls @ 65 mls/hr IV .[id number] [facility] Last Admin: 11/20/16 14:25 Dose: Not Given Linezolid (Zyvox 600mg/300ml D5w) 600 mg in 300 mls @ 200 mls/hr IVPB Q12 [facility] Insulin Aspart (Novolog) 14 unit SC AC [facility] Last Admin: 11/20/16 17:59 Dose: 14 unit Insulin Aspart (Novolog) 0 unit SC ACHS [facility] PRN Reason: Protocol Last Admin: 11/20/16 16:30 Dose: Not Given Insulin Glargine (Lantus) 54 unit SC HS [facility] Last Admin: 11/19/16 22:54 Dose: 54 units Losartan Potassium (Cozaar) 100 mg PO DAILY [facility] Last Admin: 11/20/16 10:36 Dose: 100 mg Potassium Chloride (Potassium Chloride Oral Soln) 20 meq PO DAILY [facility] Last Admin: 11/20/16 10:38 Dose: 20 meq Rosuvastatin Calcium (Crestor) 10 mg PO HS [facility] Last Admin: 11/19/16 22:54 Dose: 10 mg Saccharomyces Boulardii (Florastor) 250 mg PO BID [facility] Last Admin: 11/20/16 17:58 Dose: 250 mg Trazodone HCl (Desyrel) 50 mg PO HS [facility] Last Admin: 11/19/16 22:54 Dose: 50 mg - Labs Labs: 11/19/16 07:20 11/19/16 07:20 PT 10.4 SECONDS (9.7-12.2) 11/14/16 15:40 INR 0.9 11/14/16 15:40 APTT 29 SECONDS (21-34) 11/14/16 15:40
[2016-11-20] MEDS: (Lantus) Insulin Glargine, Recombinant SC SCH (21:50)
[2016-11-20] MEDS: Linezolid 600 mg in D5W 300 ml 600 MG/300 ML BAG IVPB SCH (21:51)
--- NOTE | 2016-11-21 01:36 | PN ---
DATE: SUBJECTIVE: She was today very calm. She did not complain much. She says she is feeling better. She says she was going to *------* and her groin rash was getting better. However, her Bennett was discontinued, and she says that the diapers were not provided, and she had some other pad on the bed. PHYSICAL EXAMINATION VITAL SIGNS: Her temperature was 97.5, pulse 68, blood pressure 129/75, respirations are 20. HEENT: Head is atraumatic and normocephalic. NECK: Supple. HEART: S1 and S2 is regular. LUNGS: Clear. No crackles or rales present. ABDOMEN: Soft, nontender. EXTREMITIES: Edema is decreasing. There is no redness. LABORATORY DATA: White count is 7.8, hemoglobin is 13.4. BUN is noted; however, on micro, I found that one set of blood culture was positive and one was negative. I am not sure if it is real or contaminant. We will repeat the cultures. However, her urine had E. coli and GPCs. PLAN: So, at this time she is on Azactam and I will add vancomycin after blood cultures are repeated. We will follow. Nikky Kumar MD
[2016-11-21] MEDS: Aztreonam 1 GM in Sodium Chloride 0.9% 100 ML IVPB SCH ×3 (03:08→19:00)
[2016-11-21] MEDS: Sodium Chloride 0.9% 1,000 ML IV SCH ×3 (03:48→19:52)
[2016-11-21] MEDS: (Novolog) Insulin Aspart, Recombinant 100 u/ml 10 ml vial SC SCH ×7 (08:21→21:51)
[2016-11-21 08:54] LABS: BASO # 0.1 K/uL (0.0-0.2)
[2016-11-21 08:57] LABS: EOS # 0.4 K/uL (0.0-0.7); EOS % 5.2 % (0.0-4.0); HEMATOCRIT 41.3 % (34.0-47.0); LYMPH # 1.6 K/uL (1.0-4.3); LYMPH % 19.1 % (20.0-40.0); MEAN CELL VOLUME 92.6 fL (81.0-99.0); MEAN CORPUSCULAR HEMOGLOBIN 31.8 pg (27.0-31.0); MEAN CORPUSCULAR HGB CONC 34.3 g/dL (33.0-37.0); MEAN PLATELET VOLUME 8.8 fL (7.2-11.7); MONO # 0.8 K/uL (0.0-0.8); MONO % 9.1 % (0.0-10.0); NRBC % 0.3 % (0.0-2.0); RED CELL DISTRIBUTION WIDTH 12.7 % (11.5-14.5); WHITE BLOOD COUNT 8.3 K/uL (4.8-10.8)
[2016-11-21 09:03] LABS: CHLORIDE 99 mmol/L (98-107)
[2016-11-21 09:04] LABS: SODIUM 140 mmol/L (132-148)
[2016-11-21 09:06] LABS: ALB/GLOB RATIO 0.9 (1.0-2.1); ALKALINE PHOSPHATASE 71 U/L (38-126); ALT/SGPT 26 U/L (9-52); AST/SGOT 28 U/L (14-36); BILIRUBIN,TOTAL 0.5 mg/dL (0.2-1.3); BLOOD UREA NITROGEN 36 mg/dL (7-17); CARBON DIOXIDE 28 mmol/L (22-30); GFR AFRICAN-AMERICAN > 60; TOTAL PROTEIN 7.2 g/dL (6.3-8.3)
[2016-11-21 09:07] LABS: GLUCOSE,RANDOM 167 mg/dL (65-105); PHOSPHOROUS 3.5 mg/dL (2.5-4.5)
[2016-11-21] MEDS: Saccharomyces Boulardi 250 mg Cap PO SCH ×2 (09:56→17:35)
[2016-11-21] MEDS: Enoxaparin 40 mg Syringe SC SCH (09:56)
[2016-11-21] MEDS: Clotrimazole/Betamethasone Cream(15 gm) TOP SCH ×2 (09:58→17:38)
[2016-11-21] MEDS: Potassium Chloride 20 mEq/15 ml LIQ UD PO SCH (10:06)
[2016-11-21] MEDS: Linezolid 600 mg in D5W 300 ml 600 MG/300 ML BAG IVPB SCH ×2 (10:06→21:50)
--- NOTE | 2016-11-21 16:40 | CP.PCM.PN ---
Objective - Vital Signs/Intake and Output Vital Signs (last 24 hours): Temp Pulse Resp BP Pulse Ox 98.2 F 66 20 133/69 96 11/21/16 15:00 11/21/16 15:00 11/21/16 15:00 11/21/16 15:00 11/21/16 15:00 Intake and Output: 11/21/16 11/21/16 06:59 18:59 Intake Total 1365 Balance 1365 - Medications Medications: Current Medications Acetaminophen (Tylenol 325mg Tab) 650 mg PO Q6 PRN PRN Reason: Pain, severe (8-10) Last Admin: 11/16/16 10:09 Dose: 650 mg Alprazolam (Xanax) 1 mg PO TID PRN PRN Reason: Anxiety Last Admin: 11/20/16 10:35 Dose: 1 mg Amlodipine Besylate (Norvasc) 10 mg PO DAILY [facility] Last Admin: 11/21/16 09:56 Dose: 10 mg Betamethasone/Clotrimazole (Lotrisone) 0 gm TOP BID [facility] Last Admin: 11/21/16 09:58 Dose: 1 applic Clopidogrel Bisulfate (Plavix) 75 mg PO DAILY [facility] Last Admin: 11/21/16 09:56 Dose: 75 mg Enoxaparin Sodium (Lovenox) 40 mg SC DAILY [facility] Last Admin: 11/21/16 09:56 Dose: 40 mg Fluoxetine HCl (Prozac) 40 mg PO DAILY [facility] Last Admin: 11/21/16 09:56 Dose: 40 mg Gabapentin (Neurontin) 100 mg PO TID [facility] Last Admin: 11/21/16 14:26 Dose: 100 mg Aztreonam 1 gm/ Sodium (Chloride) 100 mls @ 200 mls/hr IVPB Q8H [facility] Last Admin: 11/21/16 10:59 Dose: 200 mls/hr Sodium Chloride (Sodium Chloride 0.9%) 1,000 mls @ 65 mls/hr IV .[id number] [facility] Last Admin: 11/21/16 06:31 Dose: 65 mls/hr Linezolid (Zyvox 600mg/300ml D5w) 600 mg in 300 mls @ 200 mls/hr IVPB Q12 [facility] Last Admin: 11/21/16 10:06 Dose: 200 mls/hr Insulin Aspart (Novolog) 0 unit SC ACHS [facility] PRN Reason: Protocol Last Admin: 11/21/16 12:23 Dose: Not Given Insulin Aspart (Novolog) 16 unit SC AC [facility] Last Admin: 11/21/16 12:23 Dose: 16 unit Insulin Glargine (Lantus) 60 unit SC HS [facility] Losartan Potassium (Cozaar) 100 mg PO DAILY [facility] Last Admin: 11/20/16 10:36 Dose: 100 mg Potassium Chloride (Potassium Chloride Oral Soln) 20 meq PO DAILY [facility] Last Admin: 11/21/16 10:06 Dose: 20 meq Rosuvastatin Calcium (Crestor) 10 mg PO HS [facility] Last Admin: 11/20/16 21:45 Dose: 10 mg Saccharomyces Boulardii (Florastor) 250 mg PO BID [facility] Last Admin: 11/21/16 09:56 Dose: 250 mg Trazodone HCl (Desyrel) 50 mg PO HS [facility] Last Admin: 11/20/16 21:49 Dose: 50 mg - Labs Labs: 11/21/16 08:41 11/21/16 08:41 PT 10.4 SECONDS (9.7-12.2) 11/14/16 15:40 INR 0.9 11/14/16 15:40 APTT 29 SECONDS (21-34) 11/14/16 15:40
--- NOTE | 2016-11-21 17:03 | CP.PCM.PN ---
Subjective - Date & Time of Evaluation Date of Evaluation: 11/21/16 Time of Evaluation: 04:30 - Subjective Subjective: dictated Objective - Vital Signs/Intake and Output Vital Signs (last 24 hours): Temp Pulse Resp BP Pulse Ox 98.2 F 66 20 133/69 96 11/21/16 15:00 11/21/16 15:00 11/21/16 15:00 11/21/16 15:00 11/21/16 15:00 Intake and Output: 11/21/16 11/21/16 06:59 18:59 Intake Total 1365 Balance 1365 - Medications Medications: Current Medications Acetaminophen (Tylenol 325mg Tab) 650 mg PO Q6 PRN PRN Reason: Pain, severe (8-10) Last Admin: 11/16/16 10:09 Dose: 650 mg Alprazolam (Xanax) 1 mg PO TID PRN PRN Reason: Anxiety Last Admin: 11/20/16 10:35 Dose: 1 mg Amlodipine Besylate (Norvasc) 10 mg PO DAILY [facility]S [facility] Last Admin: 11/21/16 09:56 Dose: 10 mg Betamethasone/Clotrimazole (Lotrisone) 0 gm TOP BID [facility]CLUDE 234 BEDS AT [facility] Last Admin: 11/21/16 09:58 Dose: 1 applic Clopidogrel Bisulfate (Plavix) 75 mg PO DAILY [facility] 234 B[facility]S AT [facility] Last Admin: 11/21/16 09:56 Dose: 75 mg Enoxaparin Sodium (Lovenox) 40 mg SC DAILY [facility] 234 B[facility]S AT [facility] Last Admin: 11/21/16 09:56 Dose: 40 mg Fluoxetine HCl (Prozac) 40 mg PO DAILY [facility] 234 B[facility]S AT [facility] Last Admin: 11/21/16 09:56 Dose: 40 mg Gabapentin (Neurontin) 100 mg PO TID [facility] 234 BEDS AT [facility] Last Admin: 11/21/16 14:26 Dose: 100 mg Aztreonam 1 gm/ Sodium (Chloride) 100 mls @ 200 mls/hr IVPB Q8H [facility] 234 BEDS AT [facility] Last Admin: 11/21/16 10:59 Dose: 200 mls/hr Sodium Chloride (Sodium Chloride 0.9%) 1,000 mls @ 65 mls/hr IV .[id number] [facility]CLUDE 234 BEDS AT [facility] Last Admin: 11/21/16 06:31 Dose: 65 mls/hr Linezolid (Zyvox 600mg/300ml D5w) 600 mg in 300 mls @ 200 mls/hr IVPB Q12 [facility] 234 B[facility]S AT [facility] Last Admin: 11/21/16 10:06 Dose: 200 mls/hr Insulin Aspart (Novolog) 0 unit SC ACHS [facility] PRN Reason: Protocol Last Admin: 11/21/16 12:23 Dose: Not Given Insulin Aspart (Novolog) 16 unit SC AC [facility] 234 B[facility]S [facility] Last Admin: 11/21/16 12:23 Dose: 16 unit Insulin Glargine (Lantus) 60 unit SC HS [facility] 234 B[facility]S [facility] Losartan Potassium (Cozaar) 100 mg PO DAILY [facility] 234 B[facility]S AT [facility] Last Admin: 11/20/16 10:36 Dose: 100 mg Potassium Chloride (Potassium Chloride Oral Soln) 20 meq PO DAILY [facility] 234 B[facility]S AT [facility] Last Admin: 11/21/16 10:06 Dose: 20 meq Rosuvastatin Calcium (Crestor) 10 mg PO HS [facility] 234 B[facility]S AT [facility] Last Admin: 11/20/16 21:45 Dose: 10 mg Saccharomyces Boulardii (Florastor) 250 mg PO BID [facility] 234 BEDS AT [facility] Last Admin: 11/21/16 09:56 Dose: 250 mg Trazodone HCl (Desyrel) 50 mg PO HS [facility] 234 B[facility]S AT [facility] Last Admin: 11/20/16 21:49 Dose: 50 mg - Labs Labs: 11/21/16 08:41 11/21/16 08:41 PT 10.4 SECONDS (9.7-12.2) 11/14/16 15:40 INR 0.9 11/14/16 15:40 APTT 29 SECONDS (21-34) 11/14/16 15:40
--- NOTE | 2016-11-21 17:41 | CP.PCM.PN ---
<Griselda Mcmahon - Last Filed: 11/21/16 17:37> Subjective - Date & Time of Evaluation Date of Evaluation: 11/21/16 Time of Evaluation: 17:37 - Subjective Subjective: Patient seen and examined at bedside. Patient doing well with no new complaints at this time. Patient found someone to feed her cat, Liya. Patient says she is still having LE pain and edema but is unchanged. Patient says the rash is not itching as much today. She denies fever, chills, CP, SOB, AP, N/V/D/C. Objective - Vital Signs/Intake and Output Vital Signs (last 24 hours): Temp Pulse Resp BP Pulse Ox 98.2 F 66 20 133/69 96 11/21/16 15:00 11/21/16 15:00 11/21/16 15:00 11/21/16 15:00 11/21/16 15:00 Intake and Output: 11/21/16 11/21/16 06:59 18:59 Intake Total 1365 1000 Balance 1365 1000 - Medications Medications: Current Medications Acetaminophen (Tylenol 325mg Tab) 650 mg PO Q6 PRN PRN Reason: Pain, severe (8-10) Last Admin: 11/16/16 10:09 Dose: 650 mg Alprazolam (Xanax) 1 mg PO TID PRN PRN Reason: Anxiety Last Admin: 11/20/16 10:35 Dose: 1 mg Amlodipine Besylate (Norvasc) 10 mg PO DAILY [facility] Last Admin: 11/21/16 09:56 Dose: 10 mg Betamethasone/Clotrimazole (Lotrisone) 0 gm TOP BID [facility] Last Admin: 11/21/16 09:58 Dose: 1 applic Clopidogrel Bisulfate (Plavix) 75 mg PO DAILY [facility] Last Admin: 11/21/16 09:56 Dose: 75 mg Enoxaparin Sodium (Lovenox) 40 mg SC DAILY [facility] Last Admin: 11/21/16 09:56 Dose: 40 mg Fluoxetine HCl (Prozac) 40 mg PO DAILY [facility] Last Admin: 11/21/16 09:56 Dose: 40 mg Gabapentin (Neurontin) 100 mg PO TID [facility] Last Admin: 11/21/16 17:35 Dose: 100 mg Aztreonam 1 gm/ Sodium (Chloride) 100 mls @ 200 mls/hr IVPB Q8H [facility] Last Admin: 11/21/16 10:59 Dose: 200 mls/hr Sodium Chloride (Sodium Chloride 0.9%) 1,000 mls @ 65 mls/hr IV .[id number] [facility] Last Admin: 11/21/16 06:31 Dose: 65 mls/hr Linezolid (Zyvox 600mg/300ml D5w) 600 mg in 300 mls @ 200 mls/hr IVPB Q12 [facility] Last Admin: 11/21/16 10:06 Dose: 200 mls/hr Insulin Aspart (Novolog) 0 unit SC ACHS [facility] PRN Reason: Protocol Last Admin: 11/21/16 12:23 Dose: Not Given Insulin Aspart (Novolog) 16 unit SC AC [facility] Last Admin: 11/21/16 17:36 Dose: 16 unit Insulin Glargine (Lantus) 60 unit SC HS [facility] Losartan Potassium (Cozaar) 100 mg PO DAILY [facility] Last Admin: 11/20/16 10:36 Dose: 100 mg Potassium Chloride (Potassium Chloride Oral Soln) 20 meq PO DAILY [facility] Last Admin: 11/21/16 10:06 Dose: 20 meq Rosuvastatin Calcium (Crestor) 10 mg PO HS [facility] Last Admin: 11/20/16 21:45 Dose: 10 mg Saccharomyces Boulardii (Florastor) 250 mg PO BID [facility] Last Admin: 11/21/16 17:35 Dose: 250 mg Trazodone HCl (Desyrel) 50 mg PO HS [facility] Last Admin: 11/20/16 21:49 Dose: 50 mg - Labs Labs: 11/21/16 08:41 11/21/16 08:41 PT 10.4 SECONDS (9.7-12.2) 11/14/16 15:40 INR 0.9 11/14/16 15:40 APTT 29 SECONDS (21-34) 11/14/16 15:40 - Additional Findings Additional findings: - Additional Findings Additional findings: - Constitutional Appears: Non-toxic, No Acute Distress - Head Exam Head Exam: NORMAL INSPECTION - Eye Exam Eye Exam: EOMI Additional comments: Right eyelid droop (not new) - ENT Exam ENT Exam: Mucous Membranes Moist - Respiratory Exam Respiratory Exam: Clear to Ausculation Bilateral, NORMAL BREATHING PATTERN. absent: Rales, Rhonchi, Wheezes - Cardiovascular Exam Cardiovascular Exam: REGULAR RHYTHM, +S1, +S2, Murmur (KANDICE). absent: Bradycardia, Tachycardia - GI/Abdominal Exam GI & Abdominal Exam: Soft, Normal Bowel Sounds. 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 Knee X-ray: Bilateral and patellofemoral osteoarthritis. Mild medial right osteoarthritis. No acute fracture. Hip/Pelvis X-ray: Diffuse osteopenia suggests osteoporosis however there is no fracture or dislocation appreciated throughout the pelvic ring or bilateral hip joints. Degeneration changes seen at the bilateral sacroiliac and hip joints. Lumbar X-ray: Stable multilevel lumbar spondylosis including a mild dextroscoliotic spondylolisthesis is appreciable. Shoulder X-ray: No evidence of acute fracture or dislocation. Chest X-ray: No active disease ordered left shoulder x ray: no fracture or dislocation UTI ID consulted (Dr. Tai) - recs appreciated Urine culture: E. Coli (11/14) Aztreonam 1g IV Q8 Bennett will need to be removed due to positive repeat urine culture (11/18) for GNR Blood culture: S. Aureus * Linezolid 600 mg IV Q12 Hypokalemia 20 Kdur given f/u cmp DM Consulted Endocrinology (Dr. Hernandez) - recs appreciated HgA1C (09/17/16): 12.4 ISS (high scale) Lantus 60U HS - Per Dr. Hernandez Novalog 16U TID AC - Per Dr. Hernandez Neurontin 100 mg PO TID accuchecks diabetic diet HTN Norvasc 10 mg PO QD 11/20: Dicontinued Lasix 40mg PO daily, 25mg HTZ PO daily, and Losartan 100 mg PO daily - likely causing declining kidney function * NS @ 65cc/h * Creatinine now within normal range (11/21) Depression/ anxiety Xanax 1 mg PO TID PRN Prozac 40 mg PO daily Trazodone 50 mg PO HS Fungal rash of groin discontinued Nystatin powder BID and started Lotrasone cream (11/19) Improving History of CAD plavix 75 mg PO daily ECHO (09/16/16): EF 50%; the left ventricle is normal size. There is normal left ventricular wall thickness. Left ventricle is boderline. There is normal LV segmental wall motion. Transmitral doppler chicho pattern is Grade I-abnormal relaxation pattern. Mitral regurgitation is mild. LE pain and edema venous doppler negative b/l Prophylactic Pepcid 20 mg PO BID Lovenox PT/OT <Dain Smart - Last Filed: 11/21/16 19:53> Objective - Vital Signs/Intake and Output Vital Signs (last 24 hours): Temp Pulse Resp BP Pulse Ox 98.2 F 66 20 133/69 96 11/21/16 15:00 11/21/16 15:00 11/21/16 15:00 11/21/16 15:00 11/21/16 15:00 Intake and Output: 11/21/16 11/22/16 18:59 06:59 Intake Total 1000 Balance 1000 - Medications Medications: Current Medications Acetaminophen (Tylenol 325mg Tab) 650 mg PO Q6 PRN PRN Reason: Pain, severe (8-10) Last Admin: 11/16/16 10:09 Dose: 650 mg Alprazolam (Xanax) 1 mg PO TID PRN PRN Reason: Anxiety Last Admin: 11/20/16 10:35 Dose: 1 mg Amlodipine Besylate (Norvasc) 10 mg PO DAILY [facility] Last Admin: 11/21/16 09:56 Dose: 10 mg Betamethasone/Clotrimazole (Lotrisone) 0 gm TOP BID [facility] Last Admin: 11/21/16 17:38 Dose: 1 applic Clopidogrel Bisulfate (Plavix) 75 mg PO DAILY [facility] Last Admin: 11/21/16 09:56 Dose: 75 mg Enoxaparin Sodium (Lovenox) 40 mg SC DAILY [facility] Last Admin: 11/21/16 09:56 Dose: 40 mg Fluoxetine HCl (Prozac) 40 mg PO DAILY [facility] Last Admin: 11/21/16 09:56 Dose: 40 mg Gabapentin (Neurontin) 100 mg PO TID [facility] Last Admin: 11/21/16 17:35 Dose: 100 mg Aztreonam 1 gm/ Sodium (Chloride) 100 mls @ 200 mls/hr IVPB Q8H [facility] Last Admin: 11/21/16 10:59 Dose: 200 mls/hr Sodium Chloride (Sodium Chloride 0.9%) 1,000 mls @ 65 mls/hr IV .[id number] [facility] Last Admin: 11/21/16 06:31 Dose: 65 mls/hr Linezolid (Zyvox 600mg/300ml D5w) 600 mg in 300 mls @ 200 mls/hr IVPB Q12 [facility] Last Admin: 11/21/16 10:06 Dose: 200 mls/hr Insulin Aspart (Novolog) 0 unit SC ACHS [facility] PRN Reason: Protocol Last Admin: 11/21/16 17:37 Dose: Not Given Insulin Aspart (Novolog) 16 unit SC AC [facility] Last Admin: 11/21/16 17:36 Dose: 16 unit Insulin Glargine (Lantus) 60 unit SC [facility] Losartan Potassium (Cozaar) 100 mg PO DAILY [facility] Last Admin: 11/20/16 10:36 Dose: 100 mg Potassium Chloride (Potassium Chloride Oral Soln) 20 meq PO DAILY [facility] Last Admin: 11/21/16 10:06 Dose: 20 meq Rosuvastatin Calcium (Crestor) 10 mg PO [facility] Last Admin: 11/20/16 21:45 Dose: 10 mg Saccharomyces Boulardii (Florastor) 250 mg PO BID [facility] Last Admin: 11/21/16 17:35 Dose: 250 mg Trazodone HCl (Desyrel) 50 mg PO [facility] Last Admin: 11/20/16 21:49 Dose: 50 mg - Labs Labs: 11/21/16 08:41 11/21/16 08:41 PT 10.4 SECONDS (9.7-12.2) 11/14/16 15:40 INR 0.9 11/14/16 15:40 APTT 29 SECONDS (21-34) 11/14/16 15:40 Attending/Attestation - Attestation I have personally seen and examined this patient.: Yes I have fully participated in the care of the patient.: Yes I have reviewed all pertinent clinical information, including history, physical exam and plan: Yes Notes (Text): 11/21/16 19:49 Patient was seen and examined at 2 PM 11/21/16. Exam, Assessment and Plan were thoroughly gone over with the resident. Please also note for Assessment and Plan: Acute Renal Insufficiency: this was likely secondary to the Lasix, HCTZ, Naprosyn, and Cozaar and these were all discontinued. Her Bun/Cr have significantly improved and IVF were also discontinued. Her blood pressure is well controlled just on Norvasc. Bacteremia: Gram + Cocci as per culture 11/18/16. Linezolid until sensitivities are known. Dain Smart D.O.
[2016-11-21] MEDS: (Lantus) Insulin Glargine, Recombinant SC SCH (21:49)
--- NOTE | 2016-11-22 00:39 | PN ---
DATE: ENDOCRINOLOGY FOLLOWUP NOTE LOCATION: Room 356. SUBJECTIVE: This is a 70-year-old female with recent uncontrolled type 2 insulin-requiring diabetes, now being followed closely for metabolic management. Her glycemic levels are fluctuating, but improved. The latest chemistries today showed a BUN of 36, sodium 140, potassium 4.0, chloride 99, CO2 of 28, glucose 167 and creatinine 0.9. So, at this time, we will continue the modified basal and bolus insulin regimen and increase the Novolog to 16 units subcu t.i.d. before meals to start at dinner time today as ordered. We will increase the Lantus given as basal insulin to 60 units subcu at bedside daily to start tonight. We will titrate incrementally as indicated to optimize metabolic control. We will follow and advice accordingly. Jojo Hernandez MD
[2016-11-22] MEDS: Aztreonam 1 GM in Sodium Chloride 0.9% 100 ML IVPB SCH ×3 (02:04→19:52)
[2016-11-22] MEDS: Sodium Chloride 0.9% 1,000 ML IV SCH (02:04)
--- NOTE | 2016-11-22 02:26 | PN ---
SUBJECTIVE: The patient is afebrile. The patient feels better. She states the rash is not bothering her now. She is getting water pills for her leg edema, and she appears to be in no acute respiratory distress. PHYSICAL EXAMINATION VITAL SIGNS: T-max is 98.2, pulse 66, blood pressure 133/69, respirations are 20. HEENT: Head is atraumatic, normocephalic. NECK: Supple. HEART: S1, S2, regular. LUNGS: Clear. No crackles or rales present. ABDOMEN: Soft, nontender. No guarding, no rigidity present. EXTREMITIES: There is decreasing edema. LABORATORY DATA: White count is 8.3. BUN is 36, creatinine 0.9. Blood culture x2 are negative now, and 2 sets were positive. Urine grows E. coli, beta hemolytic, and so, it looks like the blood cultures, aerobic bottle was positive and anaerobic, 2 sets were positive, but the repeat ones are negative. At this time, she is on vancomycin and Azactam, and we will repeat the UA and urine C and S and these 2 sets are positive. We will ask the patient again if she has any metals in her body or any kind of stents, and we will continue present treatment for now. Her creatinine is 0.9. So, at this time, we will continue present treatment, even though the 2 sets are positive, the repeat ones are coming negative, and hopefully it is a contaminant. I am also waiting for the echo report. Nikky Kumar MD
[2016-11-22 08:07] LABS: BASO # 0.1 K/uL (0.0-0.2); BASO % 1.4 % (0.0-2.0); EOS # 0.5 K/uL (0.0-0.7); EOS % 6.9 % (0.0-4.0); HEMATOCRIT 38.9 % (34.0-47.0); LYMPH # 2.2 K/uL (1.0-4.3); LYMPH % 29.1 % (20.0-40.0); MEAN CORPUSCULAR HEMOGLOBIN 31.6 pg (27.0-31.0); MEAN PLATELET VOLUME 8.7 fL (7.2-11.7); MONO # 0.8 K/uL (0.0-0.8); RED CELL DISTRIBUTION WIDTH 12.5 % (11.5-14.5); WHITE BLOOD COUNT 7.5 K/uL (4.8-10.8)
[2016-11-22] MEDS: (Novolog) Insulin Aspart, Recombinant 100 u/ml 10 ml vial SC SCH ×8 (08:17→22:00)
[2016-11-22 08:29] LABS: CHLORIDE 105 mmol/L (98-107); POTASSIUM 4.4 mmol/L (3.6-5.2); SODIUM 140 mmol/L (132-148)
[2016-11-22 08:31] LABS: BILIRUBIN,TOTAL 0.4 mg/dL (0.2-1.3); CARBON DIOXIDE 26 mmol/L (22-30); GFR AFRICAN-AMERICAN > 60
[2016-11-22 08:32] LABS: ALB/GLOB RATIO 0.9 (1.0-2.1); ALKALINE PHOSPHATASE 58 U/L (38-126); ALT/SGPT 25 U/L (9-52); AST/SGOT 31 U/L (14-36); BLOOD UREA NITROGEN 29 mg/dL (7-17); CALCIUM 8.5 mg/dl (8.6-10.4); GLUCOSE,RANDOM 145 mg/dL (65-105); TOTAL PROTEIN 6.4 g/dL (6.3-8.3)
[2016-11-22] MEDS: Enoxaparin 40 mg Syringe SC SCH (10:07)
[2016-11-22] MEDS: Potassium Chloride 20 mEq/15 ml LIQ UD PO SCH (10:09)
[2016-11-22] MEDS: Clotrimazole/Betamethasone Cream(15 gm) TOP SCH ×2 (10:09→18:00)
[2016-11-22] MEDS: Saccharomyces Boulardi 250 mg Cap PO SCH ×2 (10:10→17:32)
[2016-11-22] MEDS: Linezolid 600 mg in D5W 300 ml 600 MG/300 ML BAG IVPB SCH ×2 (10:14→21:54)
--- NOTE | 2016-11-22 12:02 | CP.PCM.PN ---
<LisandroGriselda - Last Filed: 11/22/16 18:17> Subjective - Date & Time of Evaluation Date of Evaluation: 11/22/16 Time of Evaluation: 11:56 - Subjective Subjective: Patient seen and examined at bedside. Patient doing well with no new complaints at this time. Patient says she is still having LE pain and edema but is unchanged. Patient says the rash is not itching as much today and only itches after the nurses wash her. Patient says she has some nasal congestion but says she always has this. She says she feeling like she has to blow hre nose but nothing comes out. She denies fever, chills, CP, SOB, AP, N/V/D/C. Objective - Vital Signs/Intake and Output Vital Signs (last 24 hours): Temp Pulse Resp BP Pulse Ox 98 F 64 20 112/66 94 L 11/22/16 00:00 11/22/16 00:00 11/22/16 00:00 11/22/16 00:00 11/22/16 00:00 Intake and Output: 11/22/16 11/22/16 06:59 18:59 Intake Total 1505 Balance 1505 - Medications Medications: Current Medications Acetaminophen (Tylenol 325mg Tab) 650 mg PO Q6 PRN PRN Reason: Pain, severe (8-10) Last Admin: 11/16/16 10:09 Dose: 650 mg Alprazolam (Xanax) 1 mg PO TID PRN PRN Reason: Anxiety Last Admin: 11/22/16 10:07 Dose: 1 mg Amlodipine Besylate (Norvasc) 10 mg PO DAILY [facility] Last Admin: 11/22/16 10:09 Dose: 10 mg Betamethasone/Clotrimazole (Lotrisone) 0 gm TOP BID [facility] Last Admin: 11/22/16 10:09 Dose: 1 applic Clopidogrel Bisulfate (Plavix) 75 mg PO DAILY [facility] Last Admin: 11/22/16 10:07 Dose: 75 mg Enoxaparin Sodium (Lovenox) 40 mg SC DAILY [facility] Last Admin: 11/22/16 10:07 Dose: 40 mg Fluoxetine HCl (Prozac) 40 mg PO DAILY [facility] Last Admin: 11/22/16 10:09 Dose: 40 mg Gabapentin (Neurontin) 100 mg PO TID [facility] Last Admin: 11/22/16 10:07 Dose: 100 mg Aztreonam 1 gm/ Sodium (Chloride) 100 mls @ 200 mls/hr IVPB Q8H [facility] Last Admin: 11/22/16 02:04 Dose: 200 mls/hr Sodium Chloride (Sodium Chloride 0.9%) 1,000 mls @ 65 mls/hr IV .[id number] [facility] Last Admin: 11/22/16 02:04 Dose: 65 mls/hr Linezolid (Zyvox 600mg/300ml D5w) 600 mg in 300 mls @ 200 mls/hr IVPB Q12 [facility] Last Admin: 11/22/16 10:14 Dose: 200 mls/hr Insulin Aspart (Novolog) 0 unit SC ACHS [facility] PRN Reason: Protocol Last Admin: 11/22/16 09:12 Dose: Not Given Insulin Aspart (Novolog) 16 unit SC AC [facility] Last Admin: 11/22/16 08:18 Dose: 16 unit Insulin Glargine (Lantus) 60 unit SC [facility] Last Admin: 11/21/16 21:49 Dose: 60 unit Losartan Potassium (Cozaar) 100 mg PO DAILY [facility] Last Admin: 11/20/16 10:36 Dose: 100 mg Potassium Chloride (Potassium Chloride Oral Soln) 20 meq PO DAILY [facility] Last Admin: 11/22/16 10:09 Dose: 20 meq Rosuvastatin Calcium (Crestor) 10 mg PO [facility] Last Admin: 11/21/16 21:50 Dose: 10 mg Saccharomyces Boulardii (Florastor) 250 mg PO BID [facility] Last Admin: 11/22/16 10:10 Dose: 250 mg Trazodone HCl (Desyrel) 50 mg PO [facility] Last Admin: 11/21/16 21:50 Dose: 50 mg - Labs Labs: 11/22/16 07:50 11/22/16 07:50 PT 10.4 SECONDS (9.7-12.2) 11/14/16 15:40 INR 0.9 11/14/16 15:40 APTT 29 SECONDS (21-34) 11/14/16 15:40 - Additional Findings Additional findings: - Constitutional Appears: Non-toxic, No Acute Distress - Head Exam Head Exam: NORMAL INSPECTION - Eye Exam Eye Exam: EOMI Additional comments: Right eyelid droop (not new) - ENT Exam ENT Exam: Mucous Membranes Moist - Respiratory Exam Respiratory Exam: Clear to Ausculation Bilateral, NORMAL BREATHING PATTERN. absent: Rales, Rhonchi, Wheezes - Cardiovascular Exam Cardiovascular Exam: REGULAR RHYTHM, +S1, +S2, Murmur (KANDICE heard best at left intercostal space). absent: Bradycardia, Tachycardia - GI/Abdominal Exam GI & Abdominal Exam: Soft, Normal Bowel Sounds. 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 Knee X-ray: Bilateral and patellofemoral osteoarthritis. Mild medial right osteoarthritis. No acute fracture. Hip/Pelvis X-ray: Diffuse osteopenia suggests osteoporosis however there is no fracture or dislocation appreciated throughout the pelvic ring or bilateral hip joints. Degeneration changes seen at the bilateral sacroiliac and hip joints. Lumbar X-ray: Stable multilevel lumbar spondylosis including a mild dextroscoliotic spondylolisthesis is appreciable. Shoulder X-ray: No evidence of acute fracture or dislocation. Chest X-ray: No active disease ordered left shoulder x ray: no fracture or dislocation UTI ID consulted (Dr. Tai) - recs appreciated Urine culture: E. Coli (11/14) Aztreonam 1g IV Q8 Bennett will need to be removed due to positive repeat urine culture (11/18) for GNR Blood culture (11/18): Coagulase negative S. Aureus * Linezolid 600 mg IV Q12 - sensitive to clindamycin, consider change * Repeat BC (11/20) - negative x 24h Acute renal insufficiency 11/20: Dicontinued Lasix 40mg PO daily, 25mg HTZ PO daily, and Losartan 100 mg PO daily - likely causing declining kidney function Creatinine now within normal range (11/21) Hypokalemia 20 Kdur given f/u cmp DM Consulted Endocrinology (Dr. Hernandez) - recs appreciated HgA1C (09/17/16): 12.4 ISS (high scale) Lantus 60U HS - Per Dr. Hernandez Novalog 16U TID AC - Per Dr. Hernandez Neurontin 100 mg PO TID accuchecks diabetic diet HTN Norvasc 10 mg PO QD - well controlled 11/20: Dicontinued Lasix 40mg PO daily, 25mg HTZ PO daily, and Losartan 100 mg PO daily - likely causing declining kidney function * discontinued NS @ 65cc/h * Creatinine now within normal range (11/21) Depression/ anxiety Xanax 1 mg PO TID PRN Prozac 40 mg PO daily Trazodone 50 mg PO HS Fungal rash of groin discontinued Nystatin powder BID and started Lotrasone cream (11/19) Improving History of CAD plavix 75 mg PO daily ECHO (09/16/16): EF 50%; the left ventricle is normal size. There is normal left ventricular wall thickness. Left ventricle is boderline. There is normal LV segmental wall motion. Transmitral doppler chicho pattern is Grade I-abnormal relaxation pattern. Mitral regurgitation is mild. LE pain and edema venous doppler negative b/l Prophylactic Pepcid 20 mg PO BID Lovenox PT/OT <Dain Smart - Last Filed: 11/22/16 19:56> Objective - Vital Signs/Intake and Output Vital Signs (last 24 hours): Temp Pulse Resp BP Pulse Ox 98.3 F 69 20 132/81 95 11/22/16 15:00 11/22/16 15:00 11/22/16 15:00 11/22/16 15:00 11/22/16 15:00 - Medications Medications: Current Medications Acetaminophen (Tylenol 325mg Tab) 650 mg PO Q6 PRN PRN Reason: Pain, severe (8-10) Last Admin: 11/16/16 10:09 Dose: 650 mg Alprazolam (Xanax) 1 mg PO TID PRN PRN Reason: Anxiety Last Admin: 11/22/16 10:07 Dose: 1 mg Amlodipine Besylate (Norvasc) 10 mg PO DAILY [facility] Last Admin: 11/22/16 10:09 Dose: 10 mg Betamethasone/Clotrimazole (Lotrisone) 0 gm TOP BID [facility] Last Admin: 11/22/16 10:09 Dose: 1 applic Clopidogrel Bisulfate (Plavix) 75 mg PO DAILY [facility] Last Admin: 11/22/16 10:07 Dose: 75 mg Enoxaparin Sodium (Lovenox) 40 mg SC DAILY [facility] Last Admin: 11/22/16 10:07 Dose: 40 mg Fluoxetine HCl (Prozac) 40 mg PO DAILY [facility] Last Admin: 11/22/16 10:09 Dose: 40 mg Gabapentin (Neurontin) 100 mg PO TID [facility] Last Admin: 11/22/16 17:32 Dose: 100 mg Aztreonam 1 gm/ Sodium (Chloride) 100 mls @ 200 mls/hr IVPB Q8H [facility] Last Admin: 11/22/16 11:41 Dose: 200 mls/hr Sodium Chloride (Sodium Chloride 0.9%) 1,000 mls @ 65 mls/hr IV .[id number] [facility] Last Admin: 11/22/16 02:04 Dose: 65 mls/hr Linezolid (Zyvox 600mg/300ml D5w) 600 mg in 300 mls @ 200 mls/hr IVPB Q12 [facility] Last Admin: 11/22/16 10:14 Dose: 200 mls/hr Insulin Aspart (Novolog) 0 unit SC ACHS [facility] PRN Reason: Protocol Last Admin: 11/22/16 17:30 Dose: Not Given Insulin Aspart (Novolog) 16 unit SC AC [facility] Last Admin: 11/22/16 16:30 Dose: 16 unit Insulin Glargine (Lantus) 60 unit SC HS [facility] Last Admin: 11/21/16 21:49 Dose: 60 unit Losartan Potassium (Cozaar) 100 mg PO DAILY [facility] Last Admin: 11/20/16 10:36 Dose: 100 mg Potassium Chloride (Potassium Chloride Oral Soln) 20 meq PO DAILY [facility] Last Admin: 11/22/16 10:09 Dose: 20 meq Rosuvastatin Calcium (Crestor) 10 mg PO HS [facility] Last Admin: 11/21/16 21:50 Dose: 10 mg Saccharomyces Boulardii (Florastor) 250 mg PO BID [facility] Last Admin: 11/22/16 17:32 Dose: 250 mg Trazodone HCl (Desyrel) 50 mg PO HS [facility] Last Admin: 11/21/16 21:50 Dose: 50 mg - Labs Labs: 11/22/16 07:50 09/23/17 07:50 PT 10.4 SECONDS (9.7-12.2) 11/14/16 15:40 INR 0.9 11/14/16 15:40 APTT 29 SECONDS (21-34) 11/14/16 15:40 Attending/Attestation - Attestation I have personally seen and examined this patient.: Yes I have fully participated in the care of the patient.: Yes I have reviewed all pertinent clinical information, including history, physical exam and plan: Yes Notes (Text): 11/22/16 19:50 Patient was seen and examined at 5:30 PM 11/22/16. Exam, Assessment and Plan were thoroughly gone over with the resident. Please also note for Assessment and Plan: Bacteremia: Coag Neg Staph as per culture 11/18/16 and patient is on Linezolid. Repeat Blood Culture 11/20/16 is negative to date. UTI: E. coli and Beta Hemolytic Strep B as per culture 11/18/16. Aztreonam will cover the E. coli and Linezolid should cover the Beta Hemolytic Strep B. Repeat Urine Culture Catheterized has been ordered 11/22/16. As long as repeat Blood Culture 11/20/16 remains negative at 72 hours and repeat Urine Culture 11/22/16 comes back as negative, then Medicine Team will speak with EFE Kumar concerning discharge planning to [place]. Medicine Team will have to provide patient with a schedule (times) when she should be taking her medications at home. Dain Smart D.O.
[2016-11-22] MEDS: (Lantus) Insulin Glargine, Recombinant SC SCH (21:53)
[2016-11-23] MEDS: Sodium Chloride 0.9% 1,000 ML IV SCH (00:30)
[2016-11-23] MEDS: Aztreonam 1 GM in Sodium Chloride 0.9% 100 ML IVPB SCH ×3 (03:00→18:17)
[2016-11-23 07:37] LABS: BASO # 0.1 K/uL (0.0-0.2); BASO % 0.9 % (0.0-2.0); EOS # 0.3 K/uL (0.0-0.7); EOS % 2.8 % (0.0-4.0); HEMATOCRIT 37.6 % (34.0-47.0); LYMPH # 1.8 K/uL (1.0-4.3); LYMPH % 16.4 % (20.0-40.0); MEAN CELL VOLUME 93.1 fL (81.0-99.0); MEAN CORPUSCULAR HEMOGLOBIN 31.4 pg (27.0-31.0); MEAN CORPUSCULAR HGB CONC 33.7 g/dL (33.0-37.0); MEAN PLATELET VOLUME 8.5 fL (7.2-11.7); MONO % 9.1 % (0.0-10.0); NRBC % 0.1 % (0.0-2.0); RED CELL DISTRIBUTION WIDTH 12.5 % (11.5-14.5); WHITE BLOOD COUNT 11.1 K/uL (4.8-10.8)
[2016-11-23 08:07] LABS: CHLORIDE 106 mmol/L (98-107); SODIUM 141 mmol/L (132-148)
[2016-11-23 08:09] LABS: BILIRUBIN,TOTAL 0.3 mg/dL (0.2-1.3); GFR AFRICAN-AMERICAN > 60
[2016-11-23 08:10] LABS: ALB/GLOB RATIO 0.9 (1.0-2.1); ALKALINE PHOSPHATASE 57 U/L (38-126); ALT/SGPT 34 U/L (9-52); AST/SGOT 37 U/L (14-36); BLOOD UREA NITROGEN 21 mg/dL (7-17); CARBON DIOXIDE 24 mmol/L (22-30); GLUCOSE,RANDOM 80 mg/dL (65-105); PHOSPHOROUS 3.1 mg/dL (2.5-4.5); TOTAL PROTEIN 6.2 g/dL (6.3-8.3)
[2016-11-23 08:11] LABS: CALCIUM 8.5 mg/dl (8.6-10.4); MAGNESIUM 1.9 mg/dL (1.6-2.3)
[2016-11-23] MEDS: (Novolog) Insulin Aspart, Recombinant 100 u/ml 10 ml vial SC SCH ×7 (08:30→21:50)
[2016-11-23] MEDS: Linezolid 600 mg in D5W 300 ml 600 MG/300 ML BAG IVPB SCH ×2 (09:25→21:44)
[2016-11-23] MEDS: Saccharomyces Boulardi 250 mg Cap PO SCH ×2 (11:00→18:17)
[2016-11-23] MEDS: Potassium Chloride 20 mEq/15 ml LIQ UD PO SCH (11:00)
[2016-11-23] MEDS: Clotrimazole/Betamethasone Cream(15 gm) TOP SCH ×2 (11:00→21:45)
[2016-11-23] MEDS: Enoxaparin 40 mg Syringe SC SCH (11:00)
--- NOTE | 2016-11-23 13:07 | CP.PCM.PN ---
<Griselda Mcmahon - Last Filed: 11/23/16 13:08> Subjective - Date & Time of Evaluation Date of Evaluation: 11/23/16 Time of Evaluation: 12:50 - Subjective Subjective: Patient seen and examined at bedside. patient doing well with no new complaints at this time. Patient says she is having some pain in her joints which is normal for her. We reminded her that when she needed to have a BM to let the nurse know so that they can help her transfer to the bedside toilet. Patient denies fever, chills, CP, SOB, AP, N/V/D/C. Objective - Vital Signs/Intake and Output Vital Signs (last 24 hours): Temp Pulse Resp BP Pulse Ox 98.1 F 78 19 150/77 95 11/23/16 08:11 11/23/16 08:11 11/23/16 08:11 11/23/16 08:11 11/23/16 08:11 Intake and Output: 11/23/16 11/23/16 06:59 18:59 Intake Total 1540 Balance 1540 - Medications Medications: Current Medications Acetaminophen (Tylenol 325mg Tab) 650 mg PO Q6 PRN PRN Reason: Pain, severe (8-10) Last Admin: 11/16/16 10:09 Dose: 650 mg Alprazolam (Xanax) 1 mg PO TID PRN PRN Reason: Anxiety Last Admin: 11/22/16 10:07 Dose: 1 mg Amlodipine Besylate (Norvasc) 10 mg PO DAILY [facility] Last Admin: 11/23/16 11:00 Dose: 10 mg Betamethasone/Clotrimazole (Lotrisone) 0 gm TOP BID [facility] Last Admin: 11/23/16 11:00 Dose: 1 applic Clopidogrel Bisulfate (Plavix) 75 mg PO DAILY [facility] Last Admin: 11/23/16 11:00 Dose: 75 mg Enoxaparin Sodium (Lovenox) 40 mg SC DAILY [facility] Last Admin: 11/23/16 11:00 Dose: 40 mg Fluoxetine HCl (Prozac) 40 mg PO DAILY [facility] Last Admin: 11/23/16 11:00 Dose: 40 mg Gabapentin (Neurontin) 100 mg PO TID [facility] Last Admin: 11/23/16 11:00 Dose: 100 mg Aztreonam 1 gm/ Sodium (Chloride) 100 mls @ 200 mls/hr IVPB Q8H [facility] Last Admin: 11/23/16 11:24 Dose: 200 mls/hr Linezolid (Zyvox 600mg/300ml D5w) 600 mg in 300 mls @ 200 mls/hr IVPB Q12 [facility] Last Admin: 11/23/16 09:25 Dose: 200 mls/hr Insulin Aspart (Novolog) 0 unit SC ACHS [facility] PRN Reason: Protocol Last Admin: 11/23/16 12:18 Dose: Not Given Insulin Aspart (Novolog) 14 unit SC AC [facility] Last Admin: 11/23/16 12:22 Dose: 14 unit Insulin Glargine (Lantus) 50 unit SC HS [facility] Losartan Potassium (Cozaar) 100 mg PO DAILY [facility] Last Admin: 11/20/16 10:36 Dose: 100 mg Potassium Chloride (Potassium Chloride Oral Soln) 20 meq PO DAILY [facility] Last Admin: 11/23/16 11:00 Dose: 20 meq Rosuvastatin Calcium (Crestor) 10 mg PO [facility] Last Admin: 11/22/16 21:50 Dose: 10 mg Saccharomyces Boulardii (Florastor) 250 mg PO BID [facility] Last Admin: 11/23/16 11:00 Dose: 250 mg Trazodone HCl (Desyrel) 50 mg PO HS [facility] Last Admin: 11/22/16 22:00 Dose: 50 mg - Labs Labs: 11/23/16 07:28 11/23/16 07:25 PT 10.4 SECONDS (9.7-12.2) 11/14/16 15:40 INR 0.9 11/14/16 15:40 APTT 29 SECONDS (21-34) 11/14/16 15:40 - Constitutional Appears: Non-toxic, No Acute Distress - Head Exam Head Exam: NORMAL INSPECTION - Eye Exam Eye Exam: EOMI, PERRL - ENT Exam ENT Exam: Mucous Membranes Moist - Respiratory Exam Respiratory Exam: Clear to Ausculation Bilateral, NORMAL BREATHING PATTERN. absent: Accessory Muscle Use, Rales, Rhonchi, Wheezes, Respiratory Distress - Cardiovascular Exam Cardiovascular Exam: REGULAR RHYTHM, +S1, +S2, Murmur (KANDICE). absent: Bradycardia, Tachycardia - GI/Abdominal Exam GI & Abdominal Exam: Soft, Normal Bowel Sounds. 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 Knee X-ray: Bilateral and patellofemoral osteoarthritis. Mild medial right osteoarthritis. No acute fracture. Hip/Pelvis X-ray: Diffuse osteopenia suggests osteoporosis however there is no fracture or dislocation appreciated throughout the pelvic ring or bilateral hip joints. Degeneration changes seen at the bilateral sacroiliac and hip joints. Lumbar X-ray: Stable multilevel lumbar spondylosis including a mild dextroscoliotic spondylolisthesis is appreciable. Shoulder X-ray: No evidence of acute fracture or dislocation. Chest X-ray: No active disease ordered left shoulder x ray: no fracture or dislocation UTI ID consulted (Dr. Tai) - recs appreciated Urine culture: E. Coli (11/14) * f/u straight cath urine analysis and culture (11/22) Aztreonam 1g IV Q8 Bennett will need to be removed due to positive repeat urine culture (11/18) for GNR Blood culture (11/18): Coagulase negative S. Aureus * Linezolid 600 mg IV Q12 - * Repeat BC (11/20) - negative x 48h Acute renal insufficiency 11/20: Dicontinued Lasix 40mg PO daily, 25mg HTZ PO daily, and Losartan 100 mg PO daily - likely causing declining kidney function Creatinine now within normal range (11/21) Hypokalemia 20 Kdur given f/u cmp DM Consulted Endocrinology (Dr. Hernandez) - recs appreciated HgA1C (09/17/16): 12.4 ISS (high scale) Lantus 60U HS - Per Dr. Hernandez Novalog 16U TID AC - Per Dr. Hernandez Neurontin 100 mg PO TID accuchecks diabetic diet HTN Norvasc 10 mg PO QD - well controlled 11/20: Dicontinued Lasix 40mg PO daily, 25mg HTZ PO daily, and Losartan 100 mg PO daily - likely causing declining kidney function * discontinued NS @ 65cc/h * Creatinine now within normal range (11/21) Depression/ anxiety Xanax 1 mg PO TID PRN Prozac 40 mg PO daily Trazodone 50 mg PO HS Fungal rash of groin discontinued Nystatin powder BID and started Lotrasone cream (11/19) Improving History of CAD plavix 75 mg PO daily ECHO (09/16/16): EF 50%; the left ventricle is normal size. There is normal left ventricular wall thickness. Left ventricle is boderline. There is normal LV segmental wall motion. Transmitral doppler chicho pattern is Grade I-abnormal relaxation pattern. Mitral regurgitation is mild. LE pain and edema venous doppler negative b/l Prophylactic Pepcid 20 mg PO BID Lovenox PT/OT <Dain Smart - Last Filed: 11/23/16 20:25> Objective - Vital Signs/Intake and Output Vital Signs (last 24 hours): Temp Pulse Resp BP Pulse Ox 97 F L 74 20 134/76 98 11/23/16 15:00 11/23/16 15:00 11/23/16 15:00 11/23/16 15:00 11/23/16 15:00 Intake and Output: 11/23/16 11/24/16 18:59 06:59 Intake Total 1205 Balance 1205 - Medications Medications: Current Medications Acetaminophen (Tylenol 325mg Tab) 650 mg PO Q6 PRN PRN Reason: Pain, severe (8-10) Last Admin: 11/16/16 10:09 Dose: 650 mg Alprazolam (Xanax) 1 mg PO TID PRN PRN Reason: Anxiety Last Admin: 11/23/16 16:09 Dose: 1 mg Amlodipine Besylate (Norvasc) 10 mg PO DAILY [facility] Last Admin: 11/23/16 11:00 Dose: 10 mg Betamethasone/Clotrimazole (Lotrisone) 0 gm TOP BID [facility] Last Admin: 11/23/16 11:00 Dose: 1 applic Clopidogrel Bisulfate (Plavix) 75 mg PO DAILY [facility] Last Admin: 11/23/16 11:00 Dose: 75 mg Enoxaparin Sodium (Lovenox) 40 mg SC DAILY [facility] Last Admin: 11/23/16 11:00 Dose: 40 mg Fluoxetine HCl (Prozac) 40 mg PO DAILY [facility] Last Admin: 11/23/16 11:00 Dose: 40 mg Gabapentin (Neurontin) 100 mg PO TID [facility] Last Admin: 11/23/16 18:17 Dose: 100 mg Aztreonam 1 gm/ Sodium (Chloride) 100 mls @ 200 mls/hr IVPB Q8H [facility] Last Admin: 11/23/16 18:17 Dose: 200 mls/hr Linezolid (Zyvox 600mg/300ml D5w) 600 mg in 300 mls @ 200 mls/hr IVPB Q12 [facility] Last Admin: 11/23/16 09:25 Dose: 200 mls/hr Insulin Aspart (Novolog) 0 unit SC ACHS [facility] PRN Reason: Protocol Last Admin: 11/23/16 18:18 Dose: Not Given Insulin Aspart (Novolog) 14 unit SC AC [facility] Last Admin: 11/23/16 18:19 Dose: 14 unit Insulin Glargine (Lantus) 50 unit SC HS [facility] Losartan Potassium (Cozaar) 100 mg PO DAILY [facility] Last Admin: 11/20/16 10:36 Dose: 100 mg Potassium Chloride (Potassium Chloride Oral Soln) 20 meq PO DAILY [facility] Last Admin: 11/23/16 11:00 Dose: 20 meq Rosuvastatin Calcium (Crestor) 10 mg PO [facility] Last Admin: 11/22/16 21:50 Dose: 10 mg Saccharomyces Boulardii (Florastor) 250 mg PO BID [facility] Last Admin: 11/23/16 18:17 Dose: 250 mg Trazodone HCl (Desyrel) 50 mg PO [facility] Last Admin: 11/22/16 22:00 Dose: 50 mg - Labs Labs: 11/23/16 07:28 11/23/16 07:25 PT 10.4 SECONDS (9.7-12.2) 11/14/16 15:40 INR 0.9 11/14/16 15:40 APTT 29 SECONDS (21-34) 11/14/16 15:40 Attending/Attestation - Attestation I have personally seen and examined this patient.: Yes I have fully participated in the care of the patient.: Yes I have reviewed all pertinent clinical information, including history, physical exam and plan: Yes Notes (Text): 11/23/16 20:20 Patient was seen and examined with the resident. Exam, Assessment and Plan were thoroughly gone over with the resident. Please also note for ROS: Burning in finger tips comes and goes (chronic) Can't have bowel movement in bedpan (resident and I spoke with Nurse Anitha that the patient will need help with bedside commode) NO pruritis in the groin/perineum Some diaphoresis this morning but this has resolved Please also note for Exam: Fungal rash in the bilateral groin, perineum has significantly removed Please also note for Assessment and Plan: Bacteremia: Coag Neg Staph as per culture 11/18/16 and patient is on Linezolid. Repeat Blood Culture 11/20/16 is negative to date. UTI: E. coli and Beta Hemolytic Strep B as per culture 11/18/16. Aztreonam will cover the E. coli and Linezolid should cover the Beta Hemolytic Strep B. Repeat Urine Culture Catheterized has been ordered 11/22/16. DM 1: Medicine Team please make sure that patient is able to use insulin properly through Diabetic Nurse Counseling which has been ordered. As long as repeat Blood Culture 11/20/16 remains negative at 72 hours and repeat Urine Culture 11/22/16 comes back as negative, then Medicine Team will speak with EFE Kumar concerning discharge planning to [facility]. Medicine Team will have to provide patient with a schedule (times) when she should be taking her medications at home. Dain Smart D.O.
[2016-11-23 17:39] VITALS: RESP 20
[2016-11-23] MEDS ORDERED: (Lantus) Insulin Glargine, Recombinant SC SCH (22:00)
[2016-11-24] MEDS: Aztreonam 1 GM in Sodium Chloride 0.9% 100 ML IVPB SCH ×3 (03:07→18:00)
[2016-11-24 06:55] LABS: BASO # 0.1 K/uL (0.0-0.2); BASO % 1.3 % (0.0-2.0); EOS # 0.5 K/uL (0.0-0.7); EOS % 8.9 % (0.0-4.0); HEMATOCRIT 37.2 % (34.0-47.0); LYMPH # 2.1 K/uL (1.0-4.3); LYMPH % 34.7 % (20.0-40.0); MEAN CORPUSCULAR HEMOGLOBIN 31.6 pg (27.0-31.0); MEAN PLATELET VOLUME 8.2 fL (7.2-11.7); MONO # 0.7 K/uL (0.0-0.8); MONO % 11.8 % (0.0-10.0); NRBC % 0.1 % (0.0-2.0); RED CELL DISTRIBUTION WIDTH 12.6 % (11.5-14.5); WHITE BLOOD COUNT 5.9 K/uL (4.8-10.8)
[2016-11-24] MEDS: (Novolog) Insulin Aspart, Recombinant 100 u/ml 10 ml vial SC SCH ×6 (08:05→21:50)
[2016-11-24 08:22] LABS: CHLORIDE 109 mmol/L (98-107); POTASSIUM 4.2 mmol/L (3.6-5.2); SODIUM 141 mmol/L (132-148)
[2016-11-24 08:24] LABS: GFR AFRICAN-AMERICAN > 60
[2016-11-24 08:25] LABS: ALB/GLOB RATIO 0.9 (1.0-2.1); ALKALINE PHOSPHATASE 54 U/L (38-126); ALT/SGPT 36 U/L (9-52); AST/SGOT 39 U/L (14-36); BILIRUBIN,TOTAL 0.3 mg/dL (0.2-1.3); BLOOD UREA NITROGEN 22 mg/dL (7-17); CARBON DIOXIDE 25 mmol/L (22-30); GLUCOSE,RANDOM 71 mg/dL (65-105); PHOSPHOROUS 3.6 mg/dL (2.5-4.5); TOTAL PROTEIN 6.1 g/dL (6.3-8.3)
[2016-11-24 08:26] LABS: CALCIUM 8.4 mg/dl (8.6-10.4)
[2016-11-24] MEDS: Linezolid 600 mg in D5W 300 ml 600 MG/300 ML BAG IVPB SCH ×2 (10:00→21:51)
--- NOTE | 2016-11-24 10:33 | PN ---
ENDOCRINOLOGY FOLLOWUP DATE: LOCATION: Room 356. SUBJECTIVE: This is a 70-year-old female with recent uncontrolled type 2 insulin-requiring diabetes, now being followed closely for metabolic management. Her glycemic levels are fluctuating, but much improved at this time and today's glucose levels are actually 84 mg/dL before breakfast as noted. Her latest chemistry showed a BUN of 21, sodium 141, potassium 4.0, chloride 106, CO2 of 24, glucose 80 and creatinine 0.8. So at this time, we will modify her basal and bolus insulin regimen as ordered with NovoLog to be lowered to 14 units subcutaneous t.i.d. to start at lunch time as ordered. We will also continue the low-dose correction scale using NovoLog insulin as given. We will also lower the basal insulin with Lantus to be given at 50 units subcutaneous at bedtime daily to start tonight. We will titrate incrementally as indicated to optimize metabolic control. We will obtain serum chemistry and supplement accordingly as needed. We will follow. Jojo Hernandez MD
--- NOTE | 2016-11-24 10:33 | PN ---
ENDO FOLLOWUP NOTE LOCATION: Room 356. SUBJECTIVE: This is a 70-year-old female with recent uncontrolled type 2 insulin requiring diabetes, now being followed closely for metabolic management. Her glycemic levels are fluctuating, but much improved at this time LABORATORY DATA: Latest glucose levels have ranged from 221 to 229 mg/dL. It was 152 this morning before breakfast as noted. Her latest chemistry showed a BUN of 29, sodium 140, potassium 4.4, chloride 105, CO2 26, glucose 145 and creatinine 0.8. So at this time, we will continue the same basal and bolus insulin regimen to allow for dose equilibration and keep her on the Lantus given as 60 units subQ at bedtime daily as ordered. We will continue the NovoLog given as 16 units subQ t.i.d. before meal as given. We will titrate incrementally as indicated to optimize metabolic control. We will follow with you. Jojo Hernandez MD
[2016-11-24] MEDS: Enoxaparin 40 mg Syringe SC SCH (11:00)
[2016-11-24] MEDS: Potassium Chloride 20 mEq/15 ml LIQ UD PO SCH (11:00)
[2016-11-24] MEDS: Clotrimazole/Betamethasone Cream(15 gm) TOP SCH ×2 (11:00→21:53)
[2016-11-24] MEDS: Saccharomyces Boulardi 250 mg Cap PO SCH ×2 (11:00→17:54)
--- NOTE | 2016-11-24 11:35 | VASCLAB ---
PROCEDURE: Lower Extremity Venous Duplex Exam. HISTORY: LE edema PRIORS: None. TECHNIQUE: Bilateral common femoral, femoral, popliteal and posterior tibial, peroneal and great saphenous veins were evaluated. Flow was assessed with color Doppler, compressibility, assessment of phasic flow and augmentation response. Report prepared by MUSA Graves, RVT FINDINGS: RIGHT: 1. Common Femoral Vein: 1.1. Compressibility - Fully compressible: Thrombus - None : Flow - Phasic: Augmentation -Normal: Reflux - None. 2. Femoral Vein: 2.1. Compressibility - Fully compressible: Thrombus - None : Flow - Phasic: Augmentation -Normal: Reflux - None. 3. Popliteal Vein: 3.1. Compressibility - Fully compressible: Thrombus - None : Flow - Phasic: Augmentation -Normal: Reflux - None. 4. Posterior Tibial Vein: 4.1. Compressibility - Fully compressible: Thrombus - None: Flow - Phasic: Augmentation -Normal: Reflux - None. 5. Peroneal Vein: 5.1. Compressibility - Fully compressible: Thrombus - None: Flow - Phasic: Augmentation -Normal: Reflux - None. 6. Great Saphenous Vein: 6.1. Compressibility - Fully compressible: Thrombus - None: Flow - Phasic: Augmentation - Normal: Reflux - None. LEFT: 1. Common Femoral Vein: 1.1. Compressibility - Fully compressible: Thrombus - None: Flow - Phasic: Augmentation -Normal: Reflux - None. 2. Femoral Vein: 2.1. Compressibility - Fully compressible: Thrombus - None: Flow - Phasic: Augmentation -Normal: Reflux - None. 3. Popliteal Vein: 3.1. Compressibility - Fully compressible: Thrombus - None : Flow - Phasic: Augmentation -Normal: Reflux - None. 4. Posterior Tibial Vein: 4.1. Compressibility - Fully compressible: Thrombus - None: Flow - Phasic: Augmentation -Normal: Reflux - None. 5. Peroneal Vein: 5.1. Compressibility - Fully compressible: Thrombus - None: Flow - Phasic: Augmentation -Normal: Reflux - None. 6. Great Saphenous Vein: 6.1. Compressibility - Fully compressible: Thrombus - None: Flow - Phasic: Augmentation - Normal: Reflux - None. OTHER FINDINGS: Right: None significant. Left: None significant. IMPRESSION: Right: No evidence of deep or superficial vein thrombosis of the right lower extremity. Normal valve function noted of the right side. Left: No evidence of deep or superficial vein thrombosis of the left lower extremity. Normal valve function noted of the left side.
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
[2016-11-24] MEDS ORDERED: (Novolog) Insulin Aspart, Recombinant 100 u/ml 10 ml vial SC SCH (16:30)
--- NOTE | 2016-11-24 19:03 | PN ---
ENDOCRINOLOGY FOLLOWUP NOTE DATE: This is a 70-year-old female with recent uncontrolled type 2 insulin-requiring diabetes, now being followed closely for metabolic management. She has ongoing IV antibiotics for management of bacteremia. No urinary tract infection as noted thereof. Her latest glucose levels have been fluctuating because of the variability of her oral intake as noted thereof. Her latest glucose levels today have ranged 77 to 191 mg/dL. It was 139 to 158 at that time as noted. Her latest chemistry showed the BUN of 22, sodium 141, potassium 4.2, chloride 109, CO2 25, glucose 71, and creatinine 0.9. So at this time, we will modify once again her basal and bolus insulin regimen and lower the NovoLog to 10 units subcutaneous t.i.d. before meals as ordered. We will lower the basal insulin given at 30 units subcutaneous at bedtime daily to start tonight. We will titrate incrementally as indicated to optimize metabolic control. We will obtain serial chemistries and supplement accordingly as needed. We will follow with you. Jojo Hernandez MD
--- NOTE | 2016-11-24 19:15 | CP.PCM.PN ---
Subjective - Date & Time of Evaluation Date of Evaluation: 11/24/16 Time of Evaluation: 05:00 - Subjective Subjective: dictated Objective - Vital Signs/Intake and Output Vital Signs (last 24 hours): Temp Pulse Resp BP Pulse Ox 97.5 F L 69 20 119/67 96 11/24/16 15:00 11/24/16 15:00 11/24/16 15:00 11/24/16 15:00 11/24/16 15:00 Intake and Output: 11/24/16 11/25/16 18:59 06:59 Intake Total 800 Balance 800 - Medications Medications: Current Medications Acetaminophen (Tylenol 325mg Tab) 650 mg PO Q6 PRN PRN Reason: Pain, severe (8-10) Last Admin: 11/16/16 10:09 Dose: 650 mg Alprazolam (Xanax) 1 mg PO TID PRN PRN Reason: Anxiety Last Admin: 11/24/16 17:54 Dose: 1 mg Amlodipine Besylate (Norvasc) 10 mg PO DAILY [facility] Last Admin: 11/24/16 11:00 Dose: 10 mg Betamethasone/Clotrimazole (Lotrisone) 0 gm TOP BID [facility] Last Admin: 11/24/16 11:00 Dose: 1 applic Clopidogrel Bisulfate (Plavix) 75 mg PO DAILY [facility] Last Admin: 11/24/16 11:00 Dose: 75 mg Enoxaparin Sodium (Lovenox) 40 mg SC DAILY [facility] Last Admin: 11/24/16 11:00 Dose: 40 mg Fluoxetine HCl (Prozac) 40 mg PO DAILY [facility] Last Admin: 11/24/16 11:00 Dose: 40 mg Gabapentin (Neurontin) 100 mg PO TID [facility] Last Admin: 11/24/16 17:54 Dose: 100 mg Aztreonam 1 gm/ Sodium (Chloride) 100 mls @ 200 mls/hr IVPB Q8H [facility] Last Admin: 11/24/16 18:00 Dose: 200 mls/hr Linezolid (Zyvox 600mg/300ml D5w) 600 mg in 300 mls @ 200 mls/hr IVPB Q12 [facility] Last Admin: 11/24/16 10:00 Dose: 200 mls/hr Insulin Aspart (Novolog) 0 unit SC ACHS [facility] PRN Reason: Protocol Last Admin: 11/24/16 17:55 Dose: Not Given Insulin Aspart (Novolog) 10 unit SC AC [facility] Last Admin: 11/24/16 17:55 Dose: 10 unit Insulin Glargine (Lantus) 30 unit SC [facility] Losartan Potassium (Cozaar) 100 mg PO DAILY [facility] Last Admin: 11/20/16 10:36 Dose: 100 mg Potassium Chloride (Potassium Chloride Oral Soln) 20 meq PO DAILY [facility] Last Admin: 11/24/16 11:00 Dose: 20 meq Rosuvastatin Calcium (Crestor) 10 mg PO [facility] Last Admin: 11/23/16 21:43 Dose: 10 mg Saccharomyces Boulardii (Florastor) 250 mg PO BID [facility] Last Admin: 11/24/16 17:54 Dose: 250 mg Trazodone HCl (Desyrel) 50 mg PO [facility] Last Admin: 11/23/16 21:43 Dose: 50 mg - Labs Labs: 11/24/16 06:43 11/24/16 06:43 PT 10.4 SECONDS (9.7-12.2) 11/14/16 15:40 INR 0.9 11/14/16 15:40 APTT 29 SECONDS (21-34) 11/14/16 15:40
[2016-11-24] MEDS: (Lantus) Insulin Glargine, Recombinant SC SCH ×2 (21:52→22:45)
--- NOTE | 2016-11-25 00:14 | PN ---
SUBJECTIVE: The patient was seen today and was discussed with resident. PHYSICAL EXAMINATION GENERAL: She is afebrile. She is feeling better. VITAL SIGNS: T-max is , blood pressure 119/67, respirations 20. She is going to go to . She is very unstable on her gait. Otherwise, she has no urinary symptoms. LUNGS: Clear. HEART: S1 and S2, regular. ABDOMEN: Soft, flabby, nontender. EXTREMITIES: Swelling has decreased. Her urine culture now came out negative. She did have blood cultures positive 2 sets, but repeat were negative and she has no metal in her body and I think it is probably contaminant where they were drawn and they were oxacillin sensitive, coagulase-negative staph. She however got Zyvox for few days and urine culture was positive and she got antibiotic for that, which is completed today, so she will be going without any antibiotics and for instability and plan was discussed with the resident. Nikky Kumar MD
[2016-11-25] MEDS: Aztreonam 1 GM in Sodium Chloride 0.9% 100 ML IVPB SCH ×2 (02:36→12:35)
[2016-11-25 07:54] LABS: BASO # 0.1 K/uL (0.0-0.2); BASO % 1.5 % (0.0-2.0); EOS # 0.5 K/uL (0.0-0.7); EOS % 9.2 % (0.0-4.0); HEMATOCRIT 37.9 % (34.0-47.0); LYMPH # 1.6 K/uL (1.0-4.3); LYMPH % 27.5 % (20.0-40.0); MEAN CELL VOLUME 93.3 fL (81.0-99.0); MEAN CORPUSCULAR HEMOGLOBIN 31.7 pg (27.0-31.0); MEAN CORPUSCULAR HGB CONC 33.9 g/dL (33.0-37.0); MONO # 0.6 K/uL (0.0-0.8); MONO % 10.3 % (0.0-10.0); RED CELL DISTRIBUTION WIDTH 12.6 % (11.5-14.5); WHITE BLOOD COUNT 5.9 K/uL (4.8-10.8)
[2016-11-25] MEDS: (Novolog) Insulin Aspart, Recombinant 100 u/ml 10 ml vial SC SCH ×4 (08:20→12:34)
[2016-11-25 08:23] LABS: CHLORIDE 103 mmol/L (98-107)
[2016-11-25 08:24] LABS: POTASSIUM 4.5 mmol/L (3.6-5.2)
[2016-11-25 08:26] LABS: AST/SGOT 38 U/L (14-36); BILIRUBIN,TOTAL 0.2 mg/dL (0.2-1.3); CARBON DIOXIDE 24 mmol/L (22-30); GFR AFRICAN-AMERICAN > 60
[2016-11-25 08:27] LABS: ALB/GLOB RATIO 0.9 (1.0-2.1); ALKALINE PHOSPHATASE 55 U/L (38-126); ALT/SGPT 37 U/L (9-52); BLOOD UREA NITROGEN 22 mg/dL (7-17); CALCIUM 8.8 mg/dl (8.6-10.4); GLUCOSE,RANDOM 145 mg/dL (65-105); TOTAL PROTEIN 6.5 g/dL (6.3-8.3)
[2016-11-25 09:04] LABS: SODIUM 140 mmol/L (132-148)
[2016-11-25] MEDS: Enoxaparin 40 mg Syringe SC SCH (09:49)
[2016-11-25] MEDS: Saccharomyces Boulardi 250 mg Cap PO SCH (09:50)
[2016-11-25] MEDS: Potassium Chloride 20 mEq/15 ml LIQ UD PO SCH (09:57)
--- NOTE | 2016-11-25 09:57 | CP.PCM.PN ---
<Rody Victor - Last Filed: 11/25/16 09:54> Subjective - Date & Time of Evaluation Date of Evaluation: 11/25/16 Time of Evaluation: 07:00 - Subjective Subjective: Medicine Note for Dr. Boswell Patient was seen and examined at bedside. Patient reports no acute complaints. She is tolerating her diet, ambulating well, normal BM this morning. Denied fever, chills, headache, chest pain, abdominal pain, n/v/d/c, or urinary symptoms. Discharge was delayed due to LTAC authorization. Objective - Vital Signs/Intake and Output Vital Signs (last 24 hours): Temp Pulse Resp BP Pulse Ox 98.7 F 72 20 155/61 H 96 11/25/16 08:47 11/25/16 08:47 11/25/16 08:47 11/25/16 08:47 11/25/16 08:47 Intake and Output: 11/25/16 11/25/16 06:59 18:59 Intake Total 750 Balance 750 - Medications Medications: Current Medications Acetaminophen (Tylenol 325mg Tab) 650 mg PO Q6 PRN PRN Reason: Pain, severe (8-10) Last Admin: 11/16/16 10:09 Dose: 650 mg Alprazolam (Xanax) 1 mg PO TID PRN PRN Reason: Anxiety Last Admin: 11/24/16 21:50 Dose: 1 mg Amlodipine Besylate (Norvasc) 10 mg PO DAILY [facility] Last Admin: 11/25/16 09:50 Dose: 10 mg Betamethasone/Clotrimazole (Lotrisone) 0 gm TOP BID [facility] Last Admin: 11/24/16 21:53 Dose: 1 applic Clopidogrel Bisulfate (Plavix) 75 mg PO DAILY [facility] Last Admin: 11/25/16 09:48 Dose: 75 mg Enoxaparin Sodium (Lovenox) 40 mg SC DAILY [facility] Last Admin: 11/25/16 09:49 Dose: 40 mg Fluoxetine HCl (Prozac) 40 mg PO DAILY [facility] Last Admin: 11/25/16 09:48 Dose: 40 mg Gabapentin (Neurontin) 100 mg PO TID [facility] Last Admin: 11/25/16 09:49 Dose: 100 mg Aztreonam 1 gm/ Sodium (Chloride) 100 mls @ 200 mls/hr IVPB Q8H [facility] Last Admin: 11/25/16 02:36 Dose: 200 mls/hr Insulin Aspart (Novolog) 0 unit SC ACHS [facility] PRN Reason: Protocol Last Admin: 11/25/16 08:20 Dose: Not Given Insulin Aspart (Novolog) 6 unit SC AC [facility] Last Admin: 11/25/16 08:30 Dose: 6 unit Insulin Glargine (Lantus) 30 unit SC HS [facility] Last Admin: 11/24/16 22:45 Dose: 30 u Losartan Potassium (Cozaar) 100 mg PO DAILY [facility] Last Admin: 11/20/16 10:36 Dose: 100 mg Potassium Chloride (Potassium Chloride Oral Soln) 20 meq PO DAILY [facility] Last Admin: 11/24/16 11:00 Dose: 20 meq Rosuvastatin Calcium (Crestor) 10 mg PO [facility] Last Admin: 11/24/16 21:50 Dose: 10 mg Saccharomyces Boulardii (Florastor) 250 mg PO BID [facility] Last Admin: 11/25/16 09:50 Dose: 250 mg Trazodone HCl (Desyrel) 50 mg PO [facility] Last Admin: 11/24/16 21:50 Dose: 50 mg - Labs Labs: 11/25/16 07:45 11/25/16 07:45 PT 10.4 SECONDS (9.7-12.2) 11/14/16 15:40 INR 0.9 11/14/16 15:40 APTT 29 SECONDS (21-34) 11/14/16 15:40 - Head Exam Head Exam: NORMAL INSPECTION, NORMOCEPHALIC - Eye Exam Eye Exam: EOMI, Normal appearance, PERRL - ENT Exam ENT Exam: Mucous Membranes Moist - Respiratory Exam Respiratory Exam: Clear to Ausculation Bilateral, NORMAL BREATHING PATTERN. absent: Decreased Breath Sounds - Cardiovascular Exam Cardiovascular Exam: REGULAR RHYTHM, RRR - GI/Abdominal Exam GI & Abdominal Exam: Soft, Normal Bowel Sounds. absent: Distended, Tenderness - Extremities Exam Extremities Exam: Normal Inspection. absent: Pedal Edema, Tenderness - Neurological Exam Neurological Exam: Alert, Awake, Oriented x3 - Psychiatric Exam Psychiatric exam: Normal Affect, Normal Mood - Skin Skin Exam: Dry, Intact, Normal Color, Warm Assessment and Plan - Assessment and Plan (Free Text) Plan: Disposition: Discharge was delayed due to LTAC authorization. Discharge order is in place, when authorization is completed and accepted. Stopped following Prescriptions: NSAID/diuretics discontinued in light of elevated Cr: (1.7) which improved upon discharge Metformin/Januvia/Invokana secondary to not available on hospital formulary and elevated Cr during course of hospitalization New medications: Norvasc 10mg PO daily (blood pressure) Lantus 50 units subqHS (diabetes) Novolog 14 units sub AC (diabetes) 1. s/p Mechanical Fall * Head CT (11/14/16): stable unenhanced head CT with no intracranial hemorrhage or definite fracture appreciable * Knee xray (11/14/16): bilateral lateral and patellofemoral osteoarthritis. Mild Medial right osteoarthritis. * Hip/pelvis xray (11/14/16): diffuse osteopenia suggests osteoporosis however there is no fracture or dislocation appreciated throughout the pevlic ring or bilateral hip joints. Degenerate changes seen at the bilateral sacroiliac and hip joints * Lumbar xray (11/14/16): stable multilevel lumbar spondylosis including a mild dextroscoliotic lumbar spinal deformity * Chest xray (11/14/16): no active disease * Left shoulder xray (11/15/16): no evidence of acute fracture or dislocation * NSAID held during admission due to increasing CR * Patient has extensive arthritis and possible osteoporosis-->patient started on calcium and vitamin supplementation; recommended to follow-up with PT regarding if patient is appropriate for therapy for osteoporosis 2. Catheter Associated UTI * Infectious Disease (Dr. Kumar) on board-->help appreciated * Urine culture (11/14/16): E. COLI-->patient is allergic to PCN * Urine culture (11/22/16): no growth * Aztreonam 1 gram IV Q 8 hours (active since ) * Patel discontinued on 11/19/16 3. Bacteremia * Infectious Disease (Dr. Kumra) on board-->help appreciated * Blood culture (11/18/16): coag negative Staph * Blood culture (11/18/16): coag negative Staph sensitive to clinda, genta, oxacillin, rifampin, tetracycline, vancomycin * Blood culture (11/20/16): no growth after 4 days X2 * Linezolid 600mg IVPB Q 12hours (active since 11/20/16-11/24/16) * Per ID, patient stable from their standpoint for discharge; completed IV abx 3. Hypokalemia * Monitor and replete * Check CMP and Mg2+ * off diuretic 4. Uncontrolled DM * Endocrinology (Dr. Hernandez) on board-->help appreciated * HgA1C: 12.4 (09/17/16) * RISS (high scale) * lantus 30 units subHS * Novolog 10units AC * Novolog sliding scale subqHS * Neurontin 100 mg PO TID * chemical educator (RN, Bea Aguilar) met with patient prior to discharge * Patient normally takes a Metformin 1000mg/januvia 100mg XL but is not available in the hospital * Home Medication: held Invokana on admission 5. Lower Extremity Edema * Echocardiogram (09/17/16): left ventricle is normal size, normal left ventricular wall thickness, left ventricle is borderline, normal LV segmental wall motion. Mitral regurgitation is mild. Grade-1 abnormal relaxation. * Non-pitting * Lower extremity venous dopplers (11/24/16): no evidence of DVT/SVT in b/l lower extremities 6. Hypertension * Losartan 100 mg PO daily * Norvasc 10mg PO daily * off diuretic/NSAID in light of Cr: 1.7 * Monitor vital signs 7. Depression/ anxiety * Xanax 1 mg PO daily TID PRN-->confirmed and reviewed [place] [facility] * Prozac 40 mg PO daily * Trazodone 50 mg PO HS 8. CAD with stents * Aspirin 81mg PO daily * plavix 75 mg PO daily * Crestor 10 mg POqHS * Echocardiogram (09/17/16): left ventricle is normal size, normal left ventricular wall thickness, left ventricle is borderline, normal LV segmental wall motion. Mitral regurgitation is mild. Grade-1 abnormal relaxation. 9. IBS 10. Groin Rash * Lotrisone cream BID * Improving * Wound care on board 11. Urinary incontinence * History of * Usually wears diapers at home * patel d/c during due to UTI/catheter associated UTI 12. Prophylactic * Lovenox 40mg subqdaily * Plavix 75 mg PO daily * Tylenol 650mg POQ6 PRN pain * PT/OT eval * Case management referral: subacute rehab DW Valente Saavedra DO, PGY-1 <ElbertMayte V - Last Filed: 11/27/16 01:18> Objective - Vital Signs/Intake and Output Vital Signs (last 24 hours): Temp Pulse Resp BP Pulse Ox 98.1 F 71 20 137/74 95 11/25/16 15:10 11/25/16 15:10 11/25/16 15:10 11/25/16 15:10 11/25/16 15:10 - Labs Labs: 11/25/16 07:45 11/25/16 07:45 PT 10.4 SECONDS (9.7-12.2) 11/14/16 15:40 INR 0.9 11/14/16 15:40 APTT 29 SECONDS (21-34) 11/14/16 15:40 Attending/Attestation - Attestation I have personally seen and examined this patient.: Yes I have fully participated in the care of the patient.: Yes I have reviewed all pertinent clinical information, including history, physical exam and plan: Yes Notes (Text): This is late computer entry for 11/25/16. Patient seen, examined, and case discussed with day-time resident. Patient's discharge order was placed yesterday. Patient's discharge delayed secondary of lack of authorization. Patient was seen by religious educator to help optimize her sugars. Discussed with hospital firm administrator, social, and case management, patient for intended discharge today. Updated medication reconcilation to be sent to Dr. Tona Whitney to update medications. New medications: Norvasc 10mg PO daily (blood pressure) Lantus 50 units subqHS (diabetes) Novolog 14 units sub AC (diabetes) Assessment/Plan 1. s/p Mechanical Fall * Head CT (11/14/16): stable unenhanced head CT with no intracranial hemorrhage or definite fracture appreciable * Knee xray (11/14/16): bilateral lateral and patellofemoral osteoarthritis. Mild Medial right osteoarthritis. * Hip/pelvis xray (11/14/16): diffuse osteopenia suggests osteoporosis however there is no fracture or dislocation appreciated throughout the pevlic ring or bilateral hip joints. Degenerate changes seen at the bilateral sacroiliac and hip joints * Lumbar xray (11/14/16): stable multilevel lumbar spondylosis including a mild dextroscoliotic lumbar spinal deformity * Chest xray (11/14/16): no active disease * Left shoulder xray (11/15/16): no evidence of acute fracture or dislocation * NSAID held during admission due to increasing CR * Patient has extensive arthritis and possible osteoporosis-->patient started on calcium and vitamin supplementation; recommended to follow-up with PT regarding if patient is appropriate for therapy for osteoporosis 2. Catheter Associated UTI * Infectious Disease (Dr. Kumar) on board-->help appreciated * Urine culture (11/14/16): E. COLI-->patient is allergic to PCN * Urine culture (11/22/16): no growth * Aztreonam 1 gram IV Q 8 hours (active since 11/17-) * Patel discontinued on 11/19/16 3. Bacteremia * Infectious Disease (Dr. Kumar) on board-->help appreciated * Blood culture (11/18/16): coag negative Staph * Blood culture (11/18/16): coag negative Staph sensitive to clinda, genta, oxacillin, rifampin, tetracycline, vancomycin * Blood culture (11/20/16): no growth after 4 days X2 * Linezolid 600mg IVPB Q 12hours (active since 11/20/16-11/24/16) * Per ID, patient stable from their standpoint for discharge; completed IV abx 3. Hypokalemia * Monitor and replete * Check CMP and Mg2+ * off diuretic 4. Uncontrolled DM * Endocrinology (Dr. Hernandez) on board-->help appreciated * HgA1C: 12.4 (09/17/16) * RISS (high scale) * lantus 30 units subHS * Novolog 10units AC * Novolog sliding scale subqHS * Neurontin 100 mg PO TID * chemical educator (RN, Bea Aguilar) met with patient prior to discharge * Patient normally takes a Metformin 1000mg/januvia 100mg XL but is not available in the hospital * Home Medication: held Invokana on admission 5. Lower Extremity Edema * Echocardiogram (09/17/16): left ventricle is normal size, normal left ventricular wall thickness, left ventricle is borderline, normal LV segmental wall motion. Mitral regurgitation is mild. Grade-1 abnormal relaxation. * Non-pitting * Lower extremity venous dopplers (11/24/16): no evidence of DVT/SVT in b/l lower extremities 6. Hypertension * Losartan 100 mg PO daily * Norvasc 10mg PO daily * off diuretic/NSAID in light of Cr: 1.7 * Monitor vital signs 7. Depression/ anxiety * Xanax 1 mg PO daily TID PRN-->confirmed and reviewed [place] [facility] * Prozac 40 mg PO daily * Trazodone 50 mg PO HS 8. CAD with stents * Aspirin 81mg PO daily * plavix 75 mg PO daily * Crestor 10 mg POqHS * Echocardiogram (09/17/16): left ventricle is normal size, normal left ventricular wall thickness, left ventricle is borderline, normal LV segmental wall motion. Mitral regurgitation is mild. Grade-1 abnormal relaxation. 9. IBS 10. Groin Rash * Lotrisone cream BID * Improving * Wound care on board 11. Urinary incontinence * History of * Usually wears diapers at home * patel d/c during due to UTI/catheter associated UTI 12. Prophylactic * Lovenox 40mg subqdaily * Plavix 75 mg PO daily * Tylenol 650mg POQ6 PRN pain * PT/OT eval * Case management referral: subacute rehab
[2016-11-25] MEDS: Clotrimazole/Betamethasone Cream(15 gm) TOP SCH (10:01)
--- NOTE | 2016-11-25 15:19 | PN ---
ENDOCRINOLOGY FOLLOWUP NOTE DATE: LOCATION: Room 356. This is a 70-year-old female with recent uncontrolled type 2 insulin-requiring diabetes, now being followed closely for metabolic management. Her oral intake remains quite variable at this time. The latest glucose level today have ranged from 161 to 170 mg/dL. It was 70 to 153 last night as noted. The latest chemistry showed a BUN of 22, sodium 140, potassium 4.5, chloride 103, CO2 of 24, glucose 145, and creatinine 1. So, at this time, we will continue the modified basal and bolus insulin regimen as given with Lantus to be given as 30 units subcutaneously at bedtime daily and NovoLog given as 6 units subcutaneously t.i.d. before meals as given. We will titrate incrementally as indicated to optimize metabolic control. We will follow and advice accordingly. Jojo Hernandez MD
[2016-11-25 16:12] VITALS: BP 137/74; PULSE 71; TEMP 98.1; O2SAT 95
== END 2016-11-25 17:45 | DRG 914 ==
LOC: C.ER 13:47 → C.9E 18:32 → C.3T 20:52
PROVIDERS: ADMIT Family Medicine; ATTEND Hospitalist
DX: S09.90XA Unspecified injury of head, initial encounter (principal); N17.9 Acute kidney failure, unspecified; E11.21 Type 2 diabetes mellitus with diabetic nephropathy; E11.42 Type 2 diabetes mellitus with diabetic polyneuropathy; R78.81 Bacteremia; T83.518A Infection and inflammatory reaction due to other urinary catheter, initial encounter; B35.6 Tinea cruris; N18.4 Chronic kidney disease, stage 4 (severe); N39.0 Urinary tract infection, site not specified; I12.9 Hypertensive chronic kidney disease with stage 1 through stage 4 chronic kidney disease, or unspecified chronic kidney disease; I25.10 Atherosclerotic heart disease of native coronary artery without angina pectoris; E11.65 Type 2 diabetes mellitus with hyperglycemia; B96.20 Unspecified Escherichia coli [E. coli] as the cause of diseases classified elsewhere; E87.6 Hypokalemia; M17.11 Unilateral primary osteoarthritis, right knee; W01.0XXA Fall on same level from slipping, tripping and stumbling without subsequent striking against object, initial encounter; B36.9 Superficial mycosis, unspecified; E78.00 Pure hypercholesterolemia, unspecified; E78.5 Hyperlipidemia, unspecified; F32.9 Major depressive disorder, single episode, unspecified; F41.1 Generalized anxiety disorder; I34.0 Nonrheumatic mitral (valve) insufficiency; I73.9 Peripheral vascular disease, unspecified; K58.9 Irritable bowel syndrome, unspecified; M54.5 Low back pain; M43.16 Spondylolisthesis, lumbar region; N18.9 Chronic kidney disease, unspecified; E11.22 Type 2 diabetes mellitus with diabetic chronic kidney disease; E11.319 Type 2 diabetes mellitus with unspecified diabetic retinopathy without macular edema; R29.6 Repeated falls; R32 Unspecified urinary incontinence; Y92.009 Unspecified place in unspecified non-institutional (private) residence as the place of occurrence of the external cause; Y93.9 Activity, unspecified; Z79.02 Long term (current) use of antithrombotics/antiplatelets; Z91.81 History of falling; Z79.4 Long term (current) use of insulin; Z79.82 Long term (current) use of aspirin; Z79.84 Long term (current) use of oral hypoglycemic drugs; Z87.891 Personal history of nicotine dependence; Z88.0 Allergy status to penicillin; Z95.5 Presence of coronary angioplasty implant and graft

== ENCOUNTER 2016-12-29 18:13 | Emergency (ER) | payer MEDICAID, MEDICARE ==
--- NOTE | 2016-12-29 19:54 | C.PDOC ---
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 Patient states "that her leg is so swollen and heavy that she is afraid to walk or transfer from her wheelchair to the her bed". Patient was recently release from [facility] 3 days ago. Reports aching abdominal pain now. Notes occasional chests pain and frequent headache, but has none of the symptoms now. Denies SOB, headache, fever , chills, cough, or any other complaints. PMD: Dr. Yates Time Seen by Provider: 12/29/16 19:21 Chief Complaint (Nursing): Lower Extremity Problem/Injury History Per: Patient History/Exam Limitations: no limitations Onset/Duration Of Symptoms: Days, Persistent Current Symptoms Are (Timing): Still Present Severity: Mild Recent travel outside of the [facility]: No Additional History Per: Patient Past Medical History Reviewed: Historical Data, Nursing Documentation, Vital Signs Vital Signs: Last Vital Signs Temp Pulse 68 12/29/16 21:10 Resp 20 12/29/16 21:10 BP 163/74 H 12/29/16 21:10 Pulse Ox 97 12/29/16 21:10 - Medical History PMH: Anxiety, Arthritis (R HIP; B/L KNEE R>L; LB), Depression, Diabetes, HTN, Hypercholesterolemia, Peripheral Edema Denies: Chronic Kidney Disease Surgical History: Cholecystectomy (1975), Coronary Stent Family History: States: Unknown Family Hx - Social History Hx Tobacco Use: No Hx Alcohol Use: No (socially) Hx Substance Use: No - Immunization History Hx Tetanus Toxoid Vaccination: No Hx Influenza Vaccination: No Hx Pneumococcal Vaccination: No Review Of Systems Except As Marked, All Systems Reviewed And Found Negative. Constitutional: Negative for: Fever, Chills Cardiovascular: Negative for: Chest Pain Respiratory: Negative for: Cough, Shortness of Breath Gastrointestinal: Positive for: Abdominal Pain (aching abdominal pain) Musculoskeletal: Positive for: Other (Bilateral lower extremity swelling) Neurological: Negative for: Headache Physical Exam - Physical Exam Appears: Non-toxic, No Acute Distress, Other (Morbidly obese) Skin: Warm, Dry Head: Atraumatic, Normacephalic Chest: Symmetrical Cardiovascular: Rhythm Regular, No Murmur Respiratory: Normal Breath Sounds, No Rales, No Rhonchi, No Wheezing Gastrointestinal/Abdominal: Soft, No Tenderness Extremity: Pedal Edema (lower extremity gross pedal edema) Neurological/Psych: Oriented x3 ED Course And Treatment - Laboratory Results Result Diagrams: 12/29/16 20:16 12/29/16 20:16 Pulse Ox Interpretation: Normal Medical Decision Making Medical Decision Making: Plans: * EKG * Blood labs * CXR * IV fluids Patient states she wants to go home. States she wasn't taking all her meds. Will arrange transportation Disposition Doctor Will See Patient In The: Office Counseled Patient/Family Regarding: Diagnosis, Need For Followup - Disposition Disposition: HOME/ ROUTINE Disposition Time: 22:13 Condition: FAIR Additional Instructions: Follow up with your doctor. Instructions: Leg Edema (ED) Forms: [facility] (Amharic), General Discharge Instructions - POA Present On Arrival: None - Clinical Impression Clinical Impression: Pedal edema - Scribe Statement The provider has reviewed the documentation as recorded by the Sammyibmigue Jarvis All medical record entries made by the Scribe were at my direction and personally dictated by me. I have reviewed the chart and agree that the record accurately reflects my personal performance of the history, physical exam, medical decision making, and the department course for this patient. I have also personally directed, reviewed, and agree with the discharge instructions and disposition.
[2016-12-29 20:36] LABS: BASO # 0.1 K/uL (0.0-0.2); BASO % 0.9 % (0.0-2.0); EOS # 0.1 K/uL (0.0-0.7); EOS % 2.2 % (0.0-4.0); HEMATOCRIT 39.5 % (34.0-47.0); LYMPH # 1.5 K/uL (1.0-4.3); LYMPH % 22.9 % (20.0-40.0); MEAN CELL VOLUME 93.3 fL (81.0-99.0); MEAN CORPUSCULAR HEMOGLOBIN 31.3 pg (27.0-31.0); MEAN CORPUSCULAR HGB CONC 33.6 g/dL (33.0-37.0); MEAN PLATELET VOLUME 7.9 fL (7.2-11.7); MONO # 0.6 K/uL (0.0-0.8); MONO % 9.1 % (0.0-10.0); NRBC % 0.1 % (0.0-2.0); RED CELL DISTRIBUTION WIDTH 13.5 % (11.5-14.5); WHITE BLOOD COUNT 6.7 K/uL (4.8-10.8)
[2016-12-29 20:50] LABS: CHLORIDE 96 mmol/L (98-107); POTASSIUM 3.4 mmol/L (3.6-5.2); SODIUM 135 mmol/L (132-148)
[2016-12-29 20:52] LABS: GFR AFRICAN-AMERICAN > 60
[2016-12-29 20:53] LABS: BLOOD UREA NITROGEN 18 mg/dL (7-17); CALCIUM 8.9 mg/dl (8.6-10.4); CARBON DIOXIDE 25 mmol/L (22-30); GLUCOSE,RANDOM 359 mg/dL (65-105)
[2016-12-29 21:12] VITALS: O2SAT 97
[2016-12-30 00:04] VITALS: BP 152/76; PULSE 78; RESP 18; TEMP 99.3
--- NOTE | 2016-12-30 08:12 | RAD ---
PROCEDURE: CHEST RADIOGRAPH, 1 VIEW HISTORY: chest pain COMPARISON: 11/14/2016 FINDINGS: LUNGS: Biapical pleural thickening. Mild venous congestion. Right hilar prominence. Small nodular density at the left lung base may represent confluence of shadows with ribs and vessels. PLEURA: No pneumothorax or pleural fluid seen. CARDIOVASCULAR: Normal. OSSEOUS STRUCTURES: No significant abnormalities. VISUALIZED UPPER ABDOMEN: Normal. OTHER FINDINGS: None. IMPRESSION: Biapical pleural thickening. Mild venous congestion. Right hilar prominence. Small nodular density at the left lung base may represent confluence of shadows with ribs and vessels.
== END 2016-12-30 00:04 | disposition home or self-care (01) ==
LOC: C.ER 18:13
DX: R60.9 Edema, unspecified (principal)

== ENCOUNTER 2017-01-08 23:00 | Inpatient (IN) | payer MEDICAID, MEDICARE ==
[2017-01-08] MEDS ORDERED: (Novolin R) Insulin Human Regular 100 units/ml vial IV STA ×2 (23:33)
[2017-01-08] MEDS ORDERED: Sodium Chloride 0.9% 1,000 ML IV ONE (23:33)
[2017-01-08 23:46] LABS: BASO % 0.3 % (0.0-2.0); EOS # 0.1 K/uL (0.0-0.7); HEMATOCRIT 39.7 % (34.0-47.0); LYMPH # 0.5 K/uL (1.0-4.3); MEAN CELL VOLUME 92.3 fL (81.0-99.0); MEAN CORPUSCULAR HEMOGLOBIN 30.6 pg (27.0-31.0); MEAN CORPUSCULAR HGB CONC 33.2 g/dL (33.0-37.0); MEAN PLATELET VOLUME 7.6 fL (7.2-11.7); MONO # 0.3 K/uL (0.0-0.8); MONO % 1.9 % (0.0-10.0); PLATELET COUNT 279 K/uL (130-400); RED CELL DISTRIBUTION WIDTH 13.2 % (11.5-14.5); WHITE BLOOD COUNT 13.2 K/uL (4.8-10.8)
[2017-01-08] MEDS ORDERED: (Novolin R) Insulin Human Regular 100 units/ml vial ONE (23:47)
[2017-01-08] MEDS ORDERED: Sodium Chloride 0.9% 1,000 ML ONE (23:48)
[2017-01-08 23:54] LABS: CHLORIDE 92 mmol/L (98-107); SODIUM 128 mmol/L (132-148)
[2017-01-08 23:56] LABS: GFR AFRICAN-AMERICAN > 60
[2017-01-08 23:57] LABS: ALB/GLOB RATIO 1.2 (1.0-2.1); ALKALINE PHOSPHATASE 93 U/L (38-126); ALT/SGPT 20 U/L (9-52); AST/SGOT 26 U/L (14-36); BLOOD UREA NITROGEN 20 mg/dL (7-17); CALCIUM 8.5 mg/dl (8.6-10.4); CARBON DIOXIDE 23 mmol/L (22-30); TOTAL PROTEIN 7.6 g/dL (6.3-8.3)
[2017-01-09] LABS: GLUCOSE,RANDOM 441 mg/dL (65-105)
[2017-01-09 00:03] LABS: NEUTROPHIL 93 % (50-75); TOTAL CELLS COUNTED 100
--- NOTE | 2017-01-09 00:40 | CT ---
EXAM: CT Head Without Intravenous Contrast CLINICAL HISTORY: 71 years old, female; Pain; Headache and other: Freq falls, ? bleed/sdh; Patient HX: [id number] TECHNIQUE: Axial computed tomography images of the head/brain without intravenous contrast. All CT scans at this facility use one or more dose reduction techniques, viz.: automated exposure control; ma/kV adjustment per patient size (including targeted exams where dose is matched to indication; i.e. head); or iterative reconstruction technique. Coronal and sagittal reformatted images were created and reviewed. COMPARISON: No relevant prior studies available. FINDINGS: Limitations: Suboptimal positioning. Brain: [id number] atrophy. No intracranial hemorrhage. No mass. Multiple scattered foci of decreased attenuation within periventricular/subcortical white matter. No definite edema. Ventricles: No hydrocephalus. Bones/joints: No acute fracture. Soft tissues: Unremarkable. Vasculature: Atherosclerotic disease of intracranial arteries. Sinuses: No acute sinusitis. Mastoid air cells: No mastoid effusion. Orbits: Unremarkable as visualized. IMPRESSION: 1. No intracranial hemorrhage. 2. Nonspecific white matter changes. 3. Incidental/non-acute findings are described above.
--- NOTE | 2017-01-09 00:45 | C.PDOC ---
History Of Present Illness <Lisette Zuluaga - Last Filed: 01/09/17 04:08> <Babak Santana - Last Filed: 01/11/17 00:11> Patient is a 71 y/o female who presents to the ED with complaints of polyuria, polydipsia, and lower abdominal pain for the last 3 days. Patient admits to not being compliant with insulin medication. Patient lives alone. No other physical complaints at this time. (Lisette Zuluaga) History Per: Patient History/Exam Limitations: no limitations Onset/Duration Of Symptoms: Days (3 days) Current Diabetic Medications: Insulin (non-compliant) <Lisette Zuluaga - Last Filed: 01/09/17 04:08> <Babak Santana - Last Filed: 01/11/17 00:11> Time Seen by Provider: 01/08/17 23:32 Chief Complaint (Nursing): High Blood Sugar Past Medical History Reviewed: Historical Data, Nursing Documentation, Vital Signs <Lisette Zuluaga - Last Filed: 01/09/17 04:08> - Medical History PMH: Anxiety, Arthritis (R HIP; B/L KNEE R>L; LB), Depression, Diabetes, HTN, Hypercholesterolemia, Peripheral Edema Denies: Chronic Kidney Disease Surgical History: Appendectomy, Cholecystectomy (1976), Coronary Stent (3) Family History: States: Unknown Family Hx - Social History Hx Tobacco Use: No Hx Alcohol Use: No (socially) Hx Substance Use: No - Immunization History Hx Tetanus Toxoid Vaccination: No Hx Influenza Vaccination: No Hx Pneumococcal Vaccination: No <Babak Santana - Last Filed: 01/11/17 00:11> Vital Signs: Last Vital Signs Temp 98.9 F 01/10/17 15:15 Pulse 83 01/10/17 15:15 Resp 20 01/10/17 15:15 BP 155/81 H 01/10/17 15:15 Pulse Ox 96 01/10/17 15:15 Review Of Systems Gastrointestinal: Positive for: Abdominal Pain (lower abdominal pain) Genitourinary: Positive for: Other (polyuria, polydipsia) <Lisette Zuluaga - Last Filed: 01/09/17 04:08> Physical Exam - Physical Exam Appears: Well, Non-toxic, No Acute Distress, Other (morbidly obese) Skin: Normal Color, Warm, Dry Head: Atraumatic, Normacephalic Gastrointestinal/Abdominal: Tenderness (lower abdomen), Other (large abdomen) Extremity: Pedal Edema (lower extremities bilaterally ) Neurological/Psych: Oriented x3, Normal Speech, Normal Cognition <Lisette Zuluaga - Last Filed: 01/09/17 04:08> <Babak Santana - Last Filed: 01/11/17 00:11> - Physical Exam Additional Physical Exam Comments: patient prone to frequent falls (Lisette Zuluaga) ED Course And Treatment - Laboratory Results Result Diagrams: 01/08/17 23:40 01/08/17 23:40 - CT Scan/US Head Other Rad Studies (CT/US): Interpreted By Me, Read By Radiologist CT/US Interpretation: IMPRESSION: 1. No intracranial hemorrhage. 2. Nonspecific white matter changes. 3. Incidental/non-acute findings are described above. Abd/Pelv Other Rad Studies (CT/US): Interpreted By Me, Read By Radiologist CT/US Interpretation: IMPRESSION: 1. Mild cystitis vs underdistention. Correlate with urinalysis. 2. Diverticulosis without CT evidence of diverticulitis. 3. Incidental/non-acute findings are described above. <Lisette Zuluaga - Last Filed: 01/09/17 04:08> - Laboratory Results Result Diagrams: 01/10/17 07:38 01/10/17 07:38 Lab Interpretation: Abnormal ECG: Interpreted By Me ECG Rhythm: Sinus Rhythm ECG Interpretation: Normal Rate From EC O2 Sat by Pulse Oximetry: 96 Pulse Ox Interpretation: Normal - Radiology CXR: Interpreted by Me CXR Interpretation: Yes: No Acute Disease Progress Note: insulin, IVF. CT head. CT Abd/pelvis pending Reevaluation Time: 00:45 Reassessment Condition: Improved <Babak Santana - Last Filed: 01/11/17 00:11> Medical Decision Making <Lisette Zuluaga - Last Filed: 01/09/17 04:08> <Babak Santana - Last Filed: 01/11/17 00:11> Medical Decision Making: elev glu, non-compliant with insulin @ home. Unclear if this pt competent to care for herself @ home 0100: signed over to overnight doc- pending repeat POC glu and ABD/Pelvis CT, then adm to Hospitalists for Dr. Nathaniel Yates's pt's. (Babak Santana) Disposition <Lisette Zuluaga - Last Filed: 01/09/17 04:08> Doctor Will See Patient In The: Hospital Counseled Patient/Family Regarding: Studies Performed, Diagnosis - Disposition Disposition Time: 01:00 <Babak Santana - Last Filed: 01/11/17 00:11> - Disposition Disposition: HOSPITALIZED Condition: GOOD - Clinical Impression Clinical Impression: Hyperglycemia, Abdominal pain - Scribe Statement The provider has reviewed the documentation as recorded by the Scribe <Lisette Zuluaga - Last Filed: 01/09/17 04:08> <Babak Santana - Last Filed: 01/11/17 00:11> - Scribe Statement Angelika Urban All medical record entries made by the Scribe were at my direction and personally dictated by me. I have reviewed the chart and agree that the record accurately reflects my personal performance of the history, physical exam, medical decision making, and the department course for this patient. I have also personally directed, reviewed, and agree with the discharge instructions and disposition. (Lisette Zuluaga) Physician Patient Turnover Patient Signed Over To: Lisette Zuluaga Handoff Comments: f/u repeat glu and insulin as needed. f/u CT abd/pelvis. Adm to Hospitalists <Babak aSntana - Last Filed: 01/11/17 00:11> Decision To Admit - Pt Status Changed To: Hospital Disposition Of: Inpatient - Admit Certification Admit to Inpatient:: After my assessment, the patient will require hospitalization for at least two midnights. This is because of the severity of symptoms shown, intensity of services needed, and/or the medical risk in this patient being treated as an outpatient. - InPatient: Physician Admission Certification: I certify that this patient requires 2 or more midnights of care for the following reason:: DM poorly controlled,UTI - . Bed Request Type: Regular Admitting Physician: Steve Moura <Lisette Zuluaga - Last Filed: 01/09/17 04:08> <Babak Santana - Last Filed: 01/11/17 00:11> - . Patient Diagnosis: Hyperglycemia, Abdominal pain
[2017-01-09] MEDS ORDERED: Iodixanol 320 MG/ML 100 ML BOTTLE IV ONE (01:09)
[2017-01-09 01:24] LABS: RBC URINE 79 /hpf (0-3); URINE BILIRUBIN NEGATIVE (NEGATIVE); URINE BLOOD 1+ (NEGATIVE); URINE COLOR Yellow (YELLOW); URINE GLUCOSE (UA) 3+ mg/dL (Normal); URINE KETONE NEGATIVE (NEGATIVE); URINE LEUKOCYTE ESTERASE 3+ Leu/uL (Negative); URINE PROTEIN 2+ mg/dL (NEGATIVE); URINE UROBILINOGEN NORMAL mg/dL (0.2-1.0); WBC URINE 161 /hpf (0-5)
[2017-01-09 01:27] LABS: URINE BACTERIA MOD (<OCC)
--- NOTE | 2017-01-09 01:54 | CP.PCM.HP ---
<Colten Ramey - Last Filed: 01/09/17 07:28> History of Present Illness - History of Present Illness History of Present Illness: CC: "I'm peeing all the time and feel nauseous" HPI: Patient is a 71 year old female with past medical history of anxiety, depression, htn, hld, CHF (diastolic) IBS with diarrhea, DM, CAD, morbid obesity , who presents to the ED with abdominal pain. Patient reports the abdominal pain began 3 days ago, and describes it is as a "dull pressure" located "right above her bladder." She reports associated polyuria, and polydipsia over the same timeline. She further endorses two episodes of vomiting this AM, of food colored emesis. Patient admits recent discharge from [facility]. She states that after discharge "she mixed up her pills" combining her old home medications , with the discharge medications from [facility]. Patient has bag of medications at bedside containing > 40 pill bottles. She admits "I have no idea what I should be taking everyday" and admits non-compliance with her diabetes regimen for at least the last three days. Patient lives alone. She states she used to have a caregiver but due to the loss of her insurance she has not had one in sometime. Patient reports checking her sugar twice daily states she ranges from "250-450" and is "rarely in the 100s." Patient reports history of patel catheter while at [facility] but denies having one at home. She states she if incontinent often and soils herself often without being able to control the flow. Patient reports using wheelchair and walker at home to ambulate. Patient admits arthritis and chronic weakness in the legs. She has history of multiple falls, but denies any since being discharged from [facility]. She denies fever, chills, headache, chest pain, palpitations, constipation. PMD: Dr. Nathaniel Yates, Dr. Sahu (psych), Dr. 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 3 stents placed - 2 at one time and 1 placed about 1 year ago Family history: mom of rheumatic heart disease Social History: stopped smoking tobacco 20 years ago, used to drink socially, but has not at all in 4 years, no drug; lives home alone but has a home-maker who comes 6x per week to help, also has a home alert button Present on Admission - Present on Admission Any Indicators Present on Admission: No Review of Systems - Constitutional Constitutional: absent: Chills, Fever, Headache - EENT Eyes: absent: Change in Vision Ears: absent: Decreased Hearing - Cardiovascular Cardiovascular: absent: Chest Pain, Dyspnea - Respiratory Respiratory: absent: Cough - Gastrointestinal Gastrointestinal: Abdominal Pain, Bloating, Diarrhea, Nausea, Vomiting - Genitourinary Genitourinary: Urinary Incontinence, Urinary Frequency. absent: Dysuria, Hematuria - Musculoskeletal Musculoskeletal: absent: Back Pain, Numbness, Tingling - Integumentary Integumentary: absent: Dry Skin - Neurological Neurological: absent: Tingling, Weakness - Psychiatric Psychiatric: absent: Anxiety, Depression - Endocrine Endocrine: Polydipsia, Polyuria. absent: Fatigue Past Patient History - Infectious Disease Hx of Infectious Diseases: None - Past Medical History & Family History Past Medical History?: Yes - Past Social History Smoking Status: Former Smoker - CARDIAC Hx Hypercholesterolemia: Yes Hx Hypertension: Yes Hx Peripheral Edema: Yes - PULMONARY Hx Respiratory Disorders: No - NEUROLOGICAL Hx Neurological Disorder: No - HEENT Hx HEENT Problems: Yes Hx Cataracts: Yes - RENAL Hx Chronic Kidney Disease: No - ENDOCRINE/METABOLIC Hx Diabetes Mellitus Type 1: Yes Hx Diabetes Mellitus Type 2: Yes - HEMATOLOGICAL/ONCOLOGICAL Hx Blood Disorders: No - INTEGUMENTARY Hx Dermatological Problems: No - MUSCULOSKELETAL/RHEUMATOLOGICAL Hx Arthritis: Yes (R HIP; B/L KNEE R>L; LB) - GASTROINTESTINAL Hx Gastrointestinal Disorders: Yes Hx Irritable Bowel: Yes - GENITOURINARY/GYNECOLOGICAL Hx Uterine Cancer: Yes (hysterectomy 2007) - PSYCHIATRIC Hx Anxiety: Yes Hx Depression: Yes Hx Substance Use: No - SURGICAL HISTORY Hx Appendectomy: Yes Hx Cholecystectomy: Yes (1975) Hx Coronary Stent: Yes (3) - ANESTHESIA Hx Anesthesia: Yes Hx Anesthesia Reactions: No Meds Allergies/Adverse Reactions: Allergies Allergy/AdvReac Type Severity Reaction Status Date / Time Penicillins Allergy Verified 12/29/16 18:30 Physical Exam - Constitutional Appears: No Acute Distress, Unkempt (smell of urine), Chronically Ill - Eye Exam Eye Exam: EOMI, Normal appearance. absent: Scleral icterus - ENT Exam ENT Exam: Mucous Membranes Dry - Neck Exam Additional comments: Large body habitus makes JVD appreciation difficult - Respiratory Exam Respiratory Exam: Clear to Auscultation Bilateral, NORMAL BREATHING PATTERN. absent: Rales, Rhonchi, Wheezes - Cardiovascular Exam Cardiovascular Exam: Tachycardia, +S1, +S2. absent: Systolic Murmur - GI/Abdominal Exam GI & Abdominal Exam: Normal Bowel Sounds, Soft, Tenderness Additional comments: suprapubic - Extremities Exam Extremities exam: Positive for: pedal edema, pedal pulses present. Negative for : calf tenderness (Jamar negative), tenderness Additional comments: legs warm - Back Exam Back exam: absent: CVA tenderness (L), CVA tenderness (R), rash noted - Neurological Exam Neurological exam: Alert, Oriented x3 - Psychiatric Exam Psychiatric exam: Normal Affect, Normal Mood - Skin Skin Exam: Normal Color, Warm Results - Vital Signs Recent Vital Signs: Last Vital Signs Temp 99.8 F H 01/09/17 01:44 Pulse 96 H 01/09/17 01:44 Resp 19 01/09/17 01:44 BP 162/70 H 01/09/17 01:44 Pulse Ox 96 01/09/17 01:44 - Labs Result Diagrams: 01/08/17 23:40 01/08/17 23:40 Labs: Laboratory Results - last 24 hr 01/08/17 01/08/17 01/08/17 23:07 23:40 23:40 WBC 13.2 H D RBC 4.30 Hgb 13.2 Hct 39.7 MCV 92.3 MCH 30.6 MCHC 33.2 RDW 13.2 Plt Count 279 MPV 7.6 Neut % (Auto) 92.8 H Lymph % (Auto) 4.0 L [place] % (Auto) 1.9 Eos % (Auto) 1.0 Baso % (Auto) 0.3 Neut # 12.2 H Lymph # 0.5 L [place] # 0.3 Eos # 0.1 Baso # 0.0 Neutrophils % (Manual) 93 H Lymphocytes % (Manual) 6 L Monocytes % (Manual) 1 Platelet Estimate Normal Sodium 128 L Potassium 4.0 Chloride 92 L Carbon Dioxide 23 Anion Gap 17 BUN 20 H Creatinine 0.8 Est GFR ( Amer) > 60 Est GFR (Non-Af Amer) > 60 POC Glucose (mg/dL) 460 H* Random Glucose 441 H* D Calcium 8.5 L Total Bilirubin 1.0 AST 26 ALT 20 Alkaline Phosphatase 93 Total Protein 7.6 Albumin 4.2 Globulin 3.4 Albumin/Globulin Ratio 1.2 Urine Color Urine Clarity Urine pH Ur Specific [place] Urine Protein Urine Glucose (UA) Urine Ketones Urine Blood Urine Nitrate Urine Bilirubin Urine Urobilinogen Ur Leukocyte Esterase Urine WBC (Auto) Urine RBC (Auto) Ur Squamous Epith Cells Urine Bacteria Urine Opiates Screen Urine Methadone Screen Ur Barbiturates Screen Ur Phencyclidine Scrn Ur Amphetamines Screen U Oth Cocaine Metabols U Cannabinoids Screen Serum Ketones Negative 01/09/17 01/09/17 01/09/17 01:16 01:16 01:40 WBC RBC Hgb Hct MCV MCH MCHC RDW Plt Count MPV Neut % (Auto) Lymph % (Auto) [place] % (Auto) Eos % (Auto) Baso % (Auto) Neut # Lymph # [place] # Eos # Baso # Neutrophils % (Manual) Lymphocytes % (Manual) Monocytes % (Manual) Platelet Estimate Sodium Potassium Chloride Carbon Dioxide Anion Gap BUN Creatinine Est GFR ( Amer) Est GFR (Non-Af Amer) POC Glucose (mg/dL) 355 H Random Glucose Calcium Total Bilirubin AST ALT Alkaline Phosphatase Total Protein Albumin Globulin Albumin/Globulin Ratio Urine Color Yellow Urine Clarity Hazy Urine pH 6.0 Ur Specific [place] 1.015 Urine Protein 2+ H Urine Glucose (UA) 3+ H Urine Ketones Negative Urine Blood 1+ H Urine Nitrate Positive H Urine Bilirubin Negative Urine Urobilinogen Normal Ur Leukocyte Esterase 3+ H Urine WBC (Auto) 161 H Urine RBC (Auto) 79 H Ur Squamous Epith Cells 4 Urine Bacteria Mod H Urine Opiates Screen Negative Urine Methadone Screen Negative Ur Barbiturates Screen Negative Ur Phencyclidine Scrn Negative Ur Amphetamines Screen Negative U Oth Cocaine Metabols Negative U Cannabinoids Screen Negative Serum Ketones Assessment & Plan - Assessment and Plan (Free Text) Plan: UTI Patient admits suprapubic abd pain UA: 2+ protein, 3+ glucose, ketones negative, 3+ LE, Positive nitrate, WBC 161 CT A/P IV Only (01/09/17): Mild cystitis vs underdistention. Correlate with urinalysis. Diverticulosis. Mild perinephric stranding. (see full report) f/u Urine culture -Previous admission Urine culture: E. Coli (11/14) Insert patel Ceftriaxone 1 gm IV Daily - will monitor for reaction Sepsis Criteria (HR >90, WBC >12) Source: UTI WBC 13.2, left shift CXR: NAD (wet read, f/u offical reading) Lactate 3.5 - Pt on metformin, no hypoperfusion - No Code Sepsis initiated per attending, Dr. Moura f/u Urine culture -Previous admission Urine culture: E. Coli (11/14) f/u Blood culture - Previous admission Blood culture (11/18): Coagulase negative S. Aureus Type two diabetes mellitus, uncontrolled Patient admits non-compliance for last several days HgA1C (09/17/16): 12.4 - initial BG 460 on presentation ISS (high scale) Lantus 30U HS Novalog 10U TID AC Neurontin 100 mg PO TID Accuchecks Diabetic diet History of CAD Hx of cardiac stent placement (2015) Plavix 75 mg PO daily ASA 81mg PO daily Crestor 10mg PO HS ECHO (09/16/16): EF 50%; the left ventricle is normal size. There is normal left ventricular wall thickness. Left ventricle is boderline. There is normal LV segmental wall motion. Transmitral doppler chicho pattern is Grade I-abnormal relaxation pattern. Mitral regurgitation is mild. CHF (congestive heart failure), NYHA class I mild diastolic CHF preload dependent HTN Initially hypertensive, Well controlled Hold Home Norvasc due to peripheral edema Losartan 100mg PO daily Abnormal UDS Positive for Benzodiazepines Urinary Incontinence Patient admits wearing diapers at home Insert patel Depression/ anxiety Xanax 1 mg PO TID PRN Prozac 40 mg PO daily Trazodone 50 mg PO HS LE pain and edema Non-pitting Compression stockings History of falls Pt denies fall since discharge from [facility] in November CT Head (01/09/17): 1. No intracranial hemorrhage. 2. Nonspecific white matter changes (see full report) Prophylactic Pepcid 20 mg PO BID Heparin 5000u Q12H PT/OT Colten Ramey PGY-2 Discussed with attending, Dr. Moura <Steve Moura P - Last Filed: 01/09/17 07:43> Results - Vital Signs Recent Vital Signs: Last Vital Signs Temp 98.2 F 01/09/17 04:25 Pulse 105 H 01/09/17 04:25 Resp 20 01/09/17 04:25 BP 133/68 01/09/17 04:25 Pulse Ox 95 01/09/17 04:25 - Labs Result Diagrams: 01/08/17 23:40 01/08/17 23:40 Labs: Laboratory Results - last 24 hr 01/08/17 01/08/17 01/08/17 23:07 23:40 23:40 WBC 13.2 H D RBC 4.30 Hgb 13.2 Hct 39.7 MCV 92.3 MCH 30.6 MCHC 33.2 RDW 13.2 Plt Count 279 MPV 7.6 Neut % (Auto) 92.8 H Lymph % (Auto) 4.0 L [place] % (Auto) 1.9 Eos % (Auto) 1.0 Baso % (Auto) 0.3 Neut # 12.2 H Lymph # 0.5 L [place] # 0.3 Eos # 0.1 Baso # 0.0 Neutrophils % (Manual) 93 H Lymphocytes % (Manual) 6 L Monocytes % (Manual) 1 Platelet Estimate Normal pO2 VBG pH VBG pCO2 VBG HCO3 VBG Total CO2 VBG O2 Sat (Calc) VBG Base Excess VBG Potassium Glucose Lactate Sodium 128 L Potassium 4.0 Chloride 92 L Carbon Dioxide 23 Anion Gap 17 BUN 20 H Creatinine 0.8 Est GFR ( Amer) > 60 Est GFR (Non-Af Amer) > 60 POC Glucose (mg/dL) 460 H* Random Glucose 441 H* D Calcium 8.5 L Total Bilirubin 1.0 AST 26 ALT 20 Alkaline Phosphatase 93 Total Protein 7.6 Albumin 4.2 Globulin 3.4 Albumin/Globulin Ratio 1.2 Venous Blood Potassium Urine Color Urine Clarity Urine pH Ur Specific [place] Urine Protein Urine Glucose (UA) Urine Ketones Urine Blood Urine Nitrate Urine Bilirubin Urine Urobilinogen Ur Leukocyte Esterase Urine WBC (Auto) Urine RBC (Auto) Ur Squamous Epith Cells Urine Bacteria Urine Opiates Screen Urine Methadone Screen Ur Barbiturates Screen Ur Phencyclidine Scrn Ur Amphetamines Screen U Benzodiazepines Scrn U Oth Cocaine Metabols U Cannabinoids Screen Serum Ketones Negative 01/09/17 01/09/17 01/09/17 01:16 01:16 01:40 WBC RBC Hgb Hct MCV MCH MCHC RDW Plt Count MPV Neut % (Auto) Lymph % (Auto) [place] % (Auto) Eos % (Auto) Baso % (Auto) Neut # Lymph # [place] # Eos # Baso # Neutrophils % (Manual) Lymphocytes % (Manual) Monocytes % (Manual) Platelet Estimate pO2 VBG pH VBG pCO2 VBG HCO3 VBG Total CO2 VBG O2 Sat (Calc) VBG Base Excess VBG Potassium Glucose Lactate Sodium Potassium Chloride Carbon Dioxide Anion Gap BUN Creatinine Est GFR ( Amer) Est GFR (Non-Af Amer) POC Glucose (mg/dL) 355 H Random Glucose Calcium Total Bilirubin AST ALT Alkaline Phosphatase Total Protein Albumin Globulin Albumin/Globulin Ratio Venous Blood Potassium Urine Color Yellow Urine Clarity Hazy Urine pH 6.0 Ur Specific [place] 1.015 Urine Protein 2+ H Urine Glucose (UA) 3+ H Urine Ketones Negative Urine Blood 1+ H Urine Nitrate Positive H Urine Bilirubin Negative Urine Urobilinogen Normal Ur Leukocyte Esterase 3+ H Urine WBC (Auto) 161 H Urine RBC (Auto) 79 H Ur Squamous Epith Cells 4 Urine Bacteria Mod H Urine Opiates Screen Negative Urine Methadone Screen Negative Ur Barbiturates Screen Negative Ur Phencyclidine Scrn Negative Ur Amphetamines Screen Negative U Benzodiazepines Scrn Positive U Oth Cocaine Metabols Negative U Cannabinoids Screen Negative Serum Ketones 01/09/17 01/09/17 03:25 07:08 WBC RBC Hgb Hct MCV MCH MCHC RDW Plt Count MPV Neut % (Auto) Lymph % (Auto) [place] % (Auto) Eos % (Auto) Baso % (Auto) Neut # Lymph # [place] # Eos # Baso # Neutrophils % (Manual) Lymphocytes % (Manual) Monocytes % (Manual) Platelet Estimate pO2 36 VBG pH 7.35 VBG pCO2 46 VBG HCO3 23.6 VBG Total CO2 26.8 VBG O2 Sat (Calc) 73.6 H VBG Base Excess -0.6 L VBG Potassium 3.5 L Glucose 336 H Lactate 3.5 H Sodium 135.0 Potassium Chloride 102.0 Carbon Dioxide Anion Gap BUN Creatinine Est GFR ( Amer) Est GFR (Non-Af Amer) POC Glucose (mg/dL) 340 H Random Glucose Calcium Total Bilirubin AST ALT Alkaline Phosphatase Total Protein Albumin Globulin Albumin/Globulin Ratio Venous Blood Potassium 3.5 L Urine Color Urine Clarity Urine pH Ur Specific [place] Urine Protein Urine Glucose (UA) Urine Ketones Urine Blood Urine Nitrate Urine Bilirubin Urine Urobilinogen Ur Leukocyte Esterase Urine WBC (Auto) Urine RBC (Auto) Ur Squamous Epith Cells Urine Bacteria Urine Opiates Screen Urine Methadone Screen Ur Barbiturates Screen Ur Phencyclidine Scrn Ur Amphetamines Screen U Benzodiazepines Scrn U Oth Cocaine Metabols U Cannabinoids Screen Serum Ketones Attending/Attestation - Attestation I have personally seen and examined this patient.: Yes I have fully participated in the care of the patient.: Yes I have reviewed all pertinent clinical information: Yes Notes (Text): Assessment * UTI * Uncontrolled dm, non compliance * Ambulatory dysfunction, wheel chair bound from OA, chronic leg edema, weakness * Hypoglycemia, hyponatremia, hypokalemia with maintained intravascular volume, and 3rd spacing in leg with venous insufficiency, but probably reduced intracellular volume * CAD with 3 stents last apr 2016, as per patient in [facility] * Recurrent admissions to hospital, rehab, for falls * H/o anxiety, depression * History of allergy to PCN Plan * Venous compression stocking, preferable thigh high * Current fluid with 1/2 NS with KCL * Will hold amlodipine and celecoxib due to leg edema * Rocephin trial 5% risk of cross reaction for reaction * Start 1/2 dose insulin Lantus 30 units, humlog 10 tidac, with high coverage, quick increase in dose to last admission dose of lantus 60 units hs with humlog 16 units tid * PT/OT eval pt may need to [place] due to recurrent failure of attempts in her house * GI and DVT prophylaxis * Continue rest of home meds * See orders for detail.
--- NOTE | 2017-01-09 02:04 | CT ---
EXAM: CT Abdomen and Pelvis With Intravenous Contrast CLINICAL HISTORY: 71 years old, female; Pain; Abdominal pain and other: Uncontrolled dm, lower abd pain; Prior surgery; Surgery type: Appendectomy, hysterectomy TECHNIQUE: Axial computed tomography images of the abdomen and pelvis with intravenous contrast. All CT scans at this facility use one or more dose reduction techniques, viz.: automated exposure control; ma/kV adjustment per patient size (including targeted exams where dose is matched to indication; i.e. head); or iterative reconstruction technique. Coronal and sagittal reformatted images were created and reviewed. CONTRAST: 100 mL of [id number] administered intravenously. COMPARISON: No relevant prior studies available. FINDINGS: Limitations: Motion artifact - mild. Lower thorax: Minimal atelectasis/scarring. Coronary artery/valvular calcifications. Small hiatal hernia. ABDOMEN: Liver: Unremarkable. No mass. Gallbladder and bile ducts: Cholecystectomy. No ductal dilation. Pancreas: No ductal dilation. No mass. Spleen: No splenomegaly. Adrenals: No mass. Kidneys and ureters: Mild stranding about kidneys, nonspecific. Few small renal calculi vs contrast within collecting system. No hydronephrosis. Stomach and bowel: Few scattered diverticula within colon. No associated inflammatory stranding. No definite mural thickening. No obstruction. Appendix: Normal caliber. No inflammation. PELVIS: Bladder: Collapsed bladder around Bennett catheter. Apparent mild bladder wall thickening. Reproductive: Hysterectomy. ABDOMEN and PELVIS: Intraperitoneal space: No significant fluid collection. No free air. Bones/joints: Degenerative changes of spine. Mild curvature of spine. Mild sclerosis of femoral heads. No acute fracture. Soft tissues: Small ventral hernia containing loop of small bowel. Laparotomy scar. Vasculature: Mild atherosclerotic disease. No aneurysm. Lymph nodes: No pathologically enlarged lymph nodes. IMPRESSION: 1. Mild cystitis vs underdistention. Correlate with urinalysis. 2. Diverticulosis without CT evidence of diverticulitis. 3. Incidental/non-acute findings are described above.
[2017-01-09 03:30] LABS: VENOUS BLOOD GAS BASE EXCESS -0.6 mmol/L (0.0-2.0); VENOUS BLOOD GAS PCO2 46 mmHg (40-60); VENOUS BLOOD PH 7.35 (7.32-7.43)
[2017-01-09] MEDS ORDERED: Sodium Chloride 0.9% 1,000 ML IV SCH (04:15)
[2017-01-09] MEDS: Potassium Chloride 20 MEQ in Sodium Chloride 0.45% 1,000 ML IV SCH ×2 (06:37→17:42)
--- NOTE | 2017-01-09 08:15 | RAD ---
PROCEDURE: CHEST RADIOGRAPH, 1 VIEW HISTORY: Diabetic COMPARISON: 12/29/2016. FINDINGS: LUNGS: The lungs are clear. PLEURA: No pneumothorax or pleural fluid seen. CARDIOVASCULAR: Normal. OSSEOUS STRUCTURES: No significant abnormalities. VISUALIZED UPPER ABDOMEN: Normal. OTHER FINDINGS: None. IMPRESSION: No active pulmonary disease.
[2017-01-09] MEDS: (Novolog) Insulin Aspart, Recombinant 100 u/ml 10 ml vial SC SCH ×3 (09:01→17:30)
[2017-01-09] MEDS ORDERED: Sodium Chloride 0.9% 1,000 ML IV ONE (10:26)
[2017-01-09 11:00] LABS: VENOUS BLOOD GAS BASE EXCESS -2.2 mmol/L (0.0-2.0); VENOUS BLOOD GAS PCO2 44 mmHg (40-60); VENOUS BLOOD PH 7.34 (7.32-7.43)
[2017-01-09] MEDS: Aztreonam 2 GM in Dextrose 5% In Water 100 ML IVPB SCH ×2 (11:45→17:32)
[2017-01-09 11:47] LABS: BASO % 0.3 % (0.0-2.0); EOS % 0.5 % (0.0-4.0); HEMATOCRIT 36.3 % (34.0-47.0); LYMPH # 0.6 K/uL (1.0-4.3); MEAN CELL VOLUME 92.3 fL (81.0-99.0); MEAN CORPUSCULAR HEMOGLOBIN 31.4 pg (27.0-31.0); MEAN PLATELET VOLUME 7.2 fL (7.2-11.7); MONO % 0.7 % (0.0-10.0); RED CELL DISTRIBUTION WIDTH 13.1 % (11.5-14.5)
[2017-01-09 11:51] LABS: WHITE BLOOD COUNT 3.8 K/uL (4.8-10.8)
[2017-01-09 11:59] LABS: CHLORIDE 96 mmol/L (98-107)
[2017-01-09 12:00] LABS: POTASSIUM 3.6 mmol/L (3.6-5.2); SODIUM 131 mmol/L (132-148)
[2017-01-09 12:01] LABS: CHOLESTEROL 160 mg/dL (0-199)
[2017-01-09 12:02] LABS: ALB/GLOB RATIO 0.9 (1.0-2.1); ALKALINE PHOSPHATASE 101 U/L (38-126); ALT/SGPT 24 U/L (9-52); AST/SGOT 22 U/L (14-36); BILIRUBIN,TOTAL 0.7 mg/dL (0.2-1.3); BLOOD UREA NITROGEN 18 mg/dL (7-17); CARBON DIOXIDE 23 mmol/L (22-30); GFR AFRICAN-AMERICAN > 60; GLUCOSE,RANDOM 294 mg/dL (65-105); TOTAL PROTEIN 7.6 g/dL (6.3-8.3)
[2017-01-09 12:03] LABS: CALCIUM 8.1 mg/dl (8.6-10.4); MAGNESIUM 1.6 mg/dL (1.6-2.3)
[2017-01-09 12:34] LABS: THYROID STIMULATING HORMONE 1.15 mIU/L (0.46-4.68)
--- NOTE | 2017-01-09 13:18 | PCM.RRT ---
<LisandroCarlos AlbertoGriselda - Last Filed: 01/09/17 13:12> [employer] Nurses Assessment - Situation Date: 01/09/17 Time [employer] was called: 10:17 [employer] Responder Arrival Time:: 10:19 [employer] Location:: Med/Oncology Room Number: 350-A [employer] Reason for Call: Tachycardia, Hypertension, Looks Sicker [employer] Called By: RN - IV IV Inserted during [employer]?: Yes IV Fluids Initiated During [employer]?: 0.9 NS 1000ml Bolus x3 bags - Respiratory [employer] Delivery Method: Nasal Cannula @L/min Oxygen Flow Rate: 2 Received Nebulizer Treatments: No Was the Patient Ventilated with Bag/Mask 100% O2?: No Secretions Suctioned?: No Was the Patient Intubated?: No Was the Patient Placed on a Ventilator?: No - Medication Medications Administered During [employer]: Zofran, Azactam - Diagnostic Test Ordered EKG: No Chest X-Ray: No CT Scan: No - Stat Labs Ordered [employer] Stat Labs Ordered: CBC, BMP, TROPONIN, LACTIC ACID [employer] Other Labs Ordered: VBG Shock panel, BNP,CMP,Mag,Phos,ESR,Procalcitonin CPR started during [employer]?: No - Vital Signs Vital Signs: Rapid Response Vital Sign Blood Pressure 188/96 Pulse Rate 115 Respiratory Rate 25 Temperature 99.4 F Oxygen Saturation 94 - Sepsis Screen Part 2 Sepsis Screen Part 2: Glucose elevated, Pt not on steroids - Time [employer] Ended Time [employer] Ended: 11:00 - Vital Signs at end of [employer] Vital Signs at end of [employer]: Rapid Response End Vital Sign Blood Pressure 134/84 Pulse Rate 98 Respiratory Rate 20 Temperature 99.0 F O2 Sat by Pulse Oximetry 97 - Recommendations Notifications: Attending Physician I.Reason for [employer] - A) Acute Change in Patient: (Select all that apply): Staff member or family is worried about patient ( Shaking and leg cramps ) Subjective: Rapid response was called at 10:15 by the nurse because she was worried about the patient's chills and leg cramps. Upon arrival, Vitals were as follows: BP: 220/103 HR: 108 O2 sat: 91% Temp: 99 F After chart review the rapid response was converted to a code sepsis. Patient started vomiting bilious emesis. [facility] and 4[facility]7 today at the time of the rapid when drawn. CXR from yesterday was negative for infiltrates. Fluid bolus was started. Code sepsis protocol was ordered as seen below. - Respiratory Oxygen Delivery Method: Nasal Cannula @L/min Oxygen Flow Rate: 2 - Constitutional Appears: Toxic, In Acute Distress - Head Head Exam: ATRAUMATIC, NORMAL INSPECTION, NORMOCEPHALIC - Eyes Eye Exam: EOMI, Normal appearance - Respiratory Exam Respiratory Exam: Clear to Ausculation Bilateral - Cardiovascular Exam Cardiovascular Exam: Tachycardia, +S1, +S2 - Neurological Exam Neurological Exam: Alert, Awake - Extremities Exam Extremities Exam: Pedal Edema, Tenderness Plan - Assessment of Findings&Treatment Plan Code Sepsis called Azactam 2g Q8 ID consulted (Stacy) Follow up: * VBG * PT/PTT * Procal * ESR * CRP * Cortisol * Troponin * BNP * Lactate <Geena Villarreal - Last Filed: 01/09/17 18:14> [employer] Nurses Assessment - Vital Signs Vital Signs: Rapid Response Vital Sign Blood Pressure 188/96 Pulse Rate 115 Respiratory Rate 25 Temperature 99.4 F Oxygen Saturation 94 - Vital Signs at end of [employer] Vital Signs at end of [employer]: Rapid Response End Vital Sign Blood Pressure 134/84 Pulse Rate 98 Respiratory Rate 20 Temperature 99.0 F O2 Sat by Pulse Oximetry 97 Attending/Attestation - Attestation I have personally seen and examined this patient.: Yes I have fully participated in the care of the patient.: Yes I have reviewed all pertinent clinical information, including history, physical exam and plan: Yes Notes (Text): Patient was seen and examined during rapid response I agree with the resident's documentation of the assessment and the plan
--- NOTE | 2017-01-09 14:43 | PCM.SEPTIC ---
Sepsis Progress Note - Reassessment Type Date of Evaluation: 01/09/17 Time of Evaluation: 10:29 Reassessment Type: Non-invasive reassessment - Non Invasive Reassessment Were the most recent vital sign reviewed: Yes Vital Sign (Latest): Temp Pulse Resp BP Pulse Ox 98.3 F 98 H 20 119/69 96 01/09/17 08:38 01/09/17 08:38 01/09/17 08:38 01/09/17 08:38 01/09/17 08:38 Cardiovascular: Yes: Regular Rate, Rhythm, Chest Non Tender, Edema, Tachycardia. No: Murmur, Bradycardia, Ectopy, Friction Rub, Irregularly Irregular Respiratory: Yes: Normal Breath Sounds. No: Rales, Stridor, Wheezing, Respiratory Distress Capillary Refill: Normal (Less than 2 sec) Pulses: Normal Radial, Normal Dorsalis Pedis, Normal Posterior Tibialis Skin: Normal Color, Warm - Invasive Reassessment (complete 2 of 4) Was a Central Venous Pressure Measurement obtained within 6 Hours after the presentation of septic shock: No Was a central venous oxygen measurement obtained within 6 hours after the presentation of septic shock: No Was a bedside cardiovascular ultrasound performed within 6 hours after the presentation of septic shock: No Was a passive leg raise performed or was a fluid challenge performed within 6 hrs of the initial fluid bolus: No Fluid Challenge performed: Yes
[2017-01-09 15:09] LABS: VENOUS BLOOD GAS BASE EXCESS -4.1 mmol/L (0.0-2.0); VENOUS BLOOD GAS PCO2 33 mmHg (40-60); VENOUS BLOOD PH 7.39 (7.32-7.43)
--- NOTE | 2017-01-09 18:48 | PCM.SEPTIC ---
Sepsis Progress Note - Reassessment Type Date of Evaluation: 01/09/17 Time of Evaluation: 14:00 Reassessment Type: Non-invasive reassessment - Non Invasive Reassessment Were the most recent vital sign reviewed: Yes Vital Sign (Latest): Temp Pulse Resp BP Pulse Ox 98.6 F 99 H 20 102/65 93 L 01/09/17 16:00 01/09/17 16:00 01/09/17 16:00 01/09/17 16:00 01/09/17 16:00 Cardiovascular: Yes: Regular Rate, Rhythm. No: Tachycardia Respiratory: Yes: Normal Breath Sounds Capillary Refill: Normal (Less than 2 sec) Pulses: Normal Radial, Normal Dorsalis Pedis, Normal Posterior Tibialis Skin: Normal Color - Invasive Reassessment (complete 2 of 4) Was a Central Venous Pressure Measurement obtained within 6 Hours after the presentation of septic shock: No Was a central venous oxygen measurement obtained within 6 hours after the presentation of septic shock: No Was a bedside cardiovascular ultrasound performed within 6 hours after the presentation of septic shock: No Was a passive leg raise performed or was a fluid challenge performed within 6 hrs of the initial fluid bolus: No Passive Leg Raise Result: Not Applicable Fluid Challenge performed: Yes
--- NOTE | 2017-01-09 18:56 | CP.PCM.PN ---
Subjective - Date & Time of Evaluation Date of Evaluation: 01/09/17 Time of Evaluation: 18:50 - Subjective Subjective: PGY1 Note for Dr. Conteh HPI: Patient seen and examined at bedside. [employer]/code sepsis called as she had rigors and was vomiting. Tachycardic with a fever. Patient was also complaining of leg cramping. No other complaints Objective - Vital Signs/Intake and Output Vital Signs (last 24 hours): Temp Pulse Resp BP Pulse Ox 98.6 F 99 H 20 102/65 93 L 01/09/17 16:00 01/09/17 16:00 01/09/17 16:00 01/09/17 16:00 01/09/17 16:00 Intake and Output: 01/09/17 01/09/17 06:59 18:59 Intake Total 4400 Output Total 2900 Balance 1500 - Medications Medications: Current Medications Alprazolam (Xanax) 1 mg PO TID PRN PRN Reason: Anxiety Last Admin: 01/09/17 17:25 Dose: 1 mg Aspirin (Ecotrin) 81 mg PO DAILY [facility] Last Admin: 01/09/17 09:29 Dose: 81 mg Clopidogrel Bisulfate (Plavix) 75 mg PO DAILY [facility] Last Admin: 01/09/17 09:30 Dose: 75 mg Docusate Sodium (Colace) 100 mg PO DAILY [facility] Last Admin: 01/09/17 09:30 Dose: 100 mg Fluoxetine HCl (Prozac) 40 mg PO DAILY [facility] Last Admin: 01/09/17 09:36 Dose: 40 mg Gabapentin (Neurontin) 100 mg PO TID [facility] Last Admin: 01/09/17 17:24 Dose: 100 mg Heparin Sodium (Porcine) (Heparin) 5,000 units SC Q12 [facility] Last Admin: 01/09/17 09:30 Dose: 5,000 units Potassium Chloride 20 meq/ (Sodium Chloride) 1,010 mls @ 100 mls/hr IV .Q10H6M [facility] Last Admin: 01/09/17 17:42 Dose: Not Given Aztreonam 2 gm/ Dextrose 100 mls @ 200 mls/hr IVPB Q8H [facility] Last Admin: 01/09/17 17:32 Dose: 200 mls/hr Insulin Aspart (Novolog) 10 unit SC TIDAC [facility] Last Admin: 01/09/17 17:30 Dose: 10 unit Insulin Glargine (Lantus) 30 unit SC HS [facility] Losartan Potassium (Cozaar) 100 mg PO DAILY [facility] Last Admin: 01/09/17 09:30 Dose: 100 mg Ondansetron HCl (Zofran Inj) 4 mg IVP Q6 PRN PRN Reason: Nausea/Vomiting Last Admin: 01/09/17 10:30 Dose: 4 mg Rosuvastatin Calcium (Crestor) 10 mg PO HS [facility] Trazodone HCl (Desyrel) 50 mg PO HS [facility] - Labs Labs: 01/09/17 11:34 01/09/17 11:38 PT 11.5 SECONDS (9.7-12.2) 01/09/17 11:34 INR 1.0 01/09/17 11:34 APTT 26 SECONDS (21-34) 01/09/17 11:34 - Constitutional Appears: Well, Non-toxic, No Acute Distress - Head Exam Head Exam: ATRAUMATIC, NORMAL INSPECTION, NORMOCEPHALIC - Eye Exam Eye Exam: EOMI Pupil Exam: NORMAL ACCOMODATION - ENT Exam ENT Exam: Mucous Membranes Moist - Neck Exam Neck Exam: Normal Inspection - Respiratory Exam Respiratory Exam: Clear to Ausculation Bilateral, NORMAL BREATHING PATTERN - Cardiovascular Exam Cardiovascular Exam: Tachycardia, REGULAR RHYTHM - GI/Abdominal Exam GI & Abdominal Exam: Soft, Normal Bowel Sounds. absent: Tenderness - Back Exam Back Exam: absent: CVA tenderness (L), CVA tenderness (R) - Neurological Exam Neurological Exam: Alert, Awake, Oriented x3 Assessment and Plan - Assessment and Plan (Free Text) Assessment: Urosepsis Criteria (HR >90, WBC >12) Source: UTI WBC 13.2, left shift CXR: NAD Lactate 3.5 - Pt on metformin, no hypoperfusion [employer]/CODE SEPSIS called - Lactate 4 - 3L fluid bolus, started azactem - 3 hours later lactate 1.5 f/u Urine culture -Previous admission Urine culture: E. Coli (11/14) f/u Blood culture - Previous admission Blood culture (11/18): Coagulase negative S. Aureus Type two diabetes mellitus, uncontrolled Patient admits non-compliance for last several days HgA1C (09/17/16): 12.4 - initial BG 460 on presentation ISS (high scale) Lantus 30U HS Novalog 10U TID AC Neurontin 100 mg PO TID Accuchecks Diabetic diet History of CAD Hx of cardiac stent placement (2015) Plavix 75 mg PO daily ASA 81mg PO daily Crestor 10mg PO HS ECHO (09/16/16): EF 50%; the left ventricle is normal size. There is normal left ventricular wall thickness. Left ventricle is boderline. There is normal LV segmental wall motion. Transmitral doppler chicho pattern is Grade I-abnormal relaxation pattern. Mitral regurgitation is mild. CHF (congestive heart failure), NYHA class I mild diastolic CHF preload dependent HTN Initially hypertensive, Well controlled Hold Home Norvasc due to peripheral edema Losartan 100mg PO daily Abnormal UDS Positive for Benzodiazepines Urinary Incontinence Patient admits wearing diapers at home Insert patel Depression/ anxiety Xanax 1 mg PO TID PRN Prozac 40 mg PO daily Trazodone 50 mg PO HS LE pain and edema Non-pitting Compression stockings History of falls Pt denies [place] [facility] [place] Head (01/09/17): 1. No intracranial hemorrhage. 2. Nonspecific white matter changes (see full report) Prophylactic Pepcid 20 mg PO BID Heparin 5000u Q12H PT/OT
--- NOTE | 2017-01-09 20:44 | CP.PCM.CON ---
History of Present Illness - History of Present Illness History of Present Illness: dictated Past Patient History - Infectious Disease Hx of Infectious Diseases: None - Past Medical History & Family History Past Medical History?: Yes - Past Social History Smoking Status: Former Smoker - CARDIAC Hx Hypercholesterolemia: Yes Hx Hypertension: Yes Hx Peripheral Edema: Yes - PULMONARY Hx Respiratory Disorders: No - NEUROLOGICAL Hx Neurological Disorder: No - HEENT Hx HEENT Problems: Yes Hx Cataracts: Yes - RENAL Hx Chronic Kidney Disease: No - ENDOCRINE/METABOLIC Hx Diabetes Mellitus Type 1: Yes Hx Diabetes Mellitus Type 2: Yes - HEMATOLOGICAL/ONCOLOGICAL Hx Blood Disorders: No - INTEGUMENTARY Hx Dermatological Problems: No - MUSCULOSKELETAL/RHEUMATOLOGICAL Hx Arthritis: Yes (R HIP; B/L KNEE R>L; LB) - GASTROINTESTINAL Hx Gastrointestinal Disorders: Yes Hx Irritable Bowel: Yes - GENITOURINARY/GYNECOLOGICAL Hx Uterine Cancer: Yes (hysterectomy 2007) - PSYCHIATRIC Hx Anxiety: Yes Hx Depression: Yes Hx Substance Use: No - SURGICAL HISTORY Hx Appendectomy: Yes Hx Cholecystectomy: Yes (1975) Hx Coronary Stent: Yes (3) - ANESTHESIA Hx Anesthesia: Yes Hx Anesthesia Reactions: No Meds Allergies/Adverse Reactions: Allergies Allergy/AdvReac Type Severity Reaction Status Date / Time Penicillins Allergy Verified 12/29/16 18:30 - Medications Medications: Current Medications Alprazolam (Xanax) 1 mg PO TID PRN PRN Reason: Anxiety Last Admin: 01/09/17 17:25 Dose: 1 mg Aspirin (Ecotrin) 81 mg PO DAILY [facility] Last Admin: 01/09/17 09:29 Dose: 81 mg Clopidogrel Bisulfate (Plavix) 75 mg PO DAILY [facility] Last Admin: 01/09/17 09:30 Dose: 75 mg Docusate Sodium (Colace) 100 mg PO DAILY [facility] Last Admin: 01/09/17 09:30 Dose: 100 mg Fluoxetine HCl (Prozac) 40 mg PO DAILY [facility] Last Admin: 01/09/17 09:36 Dose: 40 mg Gabapentin (Neurontin) 100 mg PO TID [facility] Last Admin: 01/09/17 17:24 Dose: 100 mg Heparin Sodium (Porcine) (Heparin) 5,000 units SC Q12 [facility] Last Admin: 01/09/17 09:30 Dose: 5,000 units Potassium Chloride 20 meq/ (Sodium Chloride) 1,010 mls @ 100 mls/hr IV .Q10H6M [facility] Last Admin: 01/09/17 17:42 Dose: Not Given Aztreonam 2 gm/ Dextrose 100 mls @ 200 mls/hr IVPB Q8H [facility] Last Admin: 01/09/17 17:32 Dose: 200 mls/hr Insulin Aspart (Novolog) 10 unit SC TIDAC [facility] Last Admin: 01/09/17 17:30 Dose: 10 unit Insulin Glargine (Lantus) 30 unit SC HS [facility] Losartan Potassium (Cozaar) 100 mg PO DAILY [facility] Last Admin: 01/09/17 09:30 Dose: 100 mg Ondansetron HCl (Zofran Inj) 4 mg IVP Q6 PRN PRN Reason: Nausea/Vomiting Last Admin: 01/09/17 10:30 Dose: 4 mg Rosuvastatin Calcium (Crestor) 10 mg PO HS [facility] Trazodone HCl (Desyrel) 50 mg PO HS [facility] Results - Vital Signs Recent Vital Signs: Last Vital Signs Temp 98.6 F 01/09/17 16:00 Pulse 99 H 01/09/17 16:00 Resp 20 01/09/17 16:00 BP 102/65 01/09/17 16:00 Pulse Ox 93 L 01/09/17 16:00 - Labs Result Diagrams: 01/09/17 11:34 01/09/17 11:38 Labs: Laboratory Results - last 24 hr 01/08/17 01/08/17 01/08/17 23:07 23:40 23:40 WBC 13.2 H D RBC 4.30 Hgb 13.2 Hct 39.7 MCV 92.3 MCH 30.6 MCHC 33.2 RDW 13.2 Plt Count 279 MPV 7.6 Neut % (Auto) 92.8 H Lymph % (Auto) 4.0 L [place] % (Auto) 1.9 Eos % (Auto) 1.0 Baso % (Auto) 0.3 Neut # 12.2 H Lymph # 0.5 L [place] # 0.3 Eos # 0.1 Baso # 0.0 Neutrophils % (Manual) 93 H Lymphocytes % (Manual) 6 L Monocytes % (Manual) 1 Platelet Estimate Normal ESR PT INR APTT pO2 VBG pH VBG pCO2 VBG HCO3 VBG Total CO2 VBG O2 Sat (Calc) VBG Base Excess VBG Potassium Glucose Lactate Liter Flow Blood Gas Comments Crit Value Called To Crit Value Called By Crit Value Read Back Blood Gas Notified Time Sodium 128 L Potassium 4.0 Chloride 92 L Carbon Dioxide 23 Anion Gap 17 BUN 20 H Creatinine 0.8 Est GFR ( Amer) > 60 Est GFR (Non-Af Amer) > 60 POC Glucose (mg/dL) 460 H* Random Glucose 441 H* D Hemoglobin A1c Lactic Acid Calcium 8.5 L Phosphorus Magnesium Total Bilirubin 1.0 AST 26 ALT 20 Alkaline Phosphatase 93 Troponin I C-React Prot High Sens NT-Pro-B Natriuret Pep Total Protein 7.6 Albumin 4.2 Globulin 3.4 Albumin/Globulin Ratio 1.2 Triglycerides Cholesterol LDL Cholesterol Direct HDL Cholesterol Procalcitonin Free T4 TSH 3rd Generation Plasma Cortisol PM Venous Blood Potassium Urine Color Urine Clarity Urine pH Ur Specific [place] Urine Protein Urine Glucose (UA) Urine Ketones Urine Blood Urine Nitrate Urine Bilirubin Urine Urobilinogen Ur Leukocyte Esterase Urine WBC (Auto) Urine RBC (Auto) Ur Squamous Epith Cells Urine Bacteria Urine Opiates Screen Urine Methadone Screen Ur Barbiturates Screen Ur Phencyclidine Scrn Ur Amphetamines Screen U Benzodiazepines Scrn U Oth Cocaine Metabols U Cannabinoids Screen Serum Ketones Negative 01/09/17 01/09/17 01/09/17 00:59 01:16 01:16 WBC RBC Hgb Hct MCV MCH MCHC RDW Plt Count MPV Neut % (Auto) Lymph % (Auto) [place] % (Auto) Eos % (Auto) Baso % (Auto) Neut # Lymph # [place] # Eos # Baso # Neutrophils % (Manual) Lymphocytes % (Manual) Monocytes % (Manual) Platelet Estimate ESR PT INR APTT pO2 VBG pH VBG pCO2 VBG HCO3 VBG Total CO2 VBG O2 Sat (Calc) VBG Base Excess VBG Potassium Glucose Lactate Liter Flow Blood Gas Comments Crit Value Called To Crit Value Called By Crit Value Read Back Blood Gas Notified Time Sodium Potassium Chloride Carbon Dioxide Anion Gap BUN Creatinine Est GFR ( Amer) Est GFR (Non-Af Amer) POC Glucose (mg/dL) Random Glucose Hemoglobin A1c 8.6 H D Lactic Acid Calcium Phosphorus Magnesium Total Bilirubin AST ALT Alkaline Phosphatase Troponin I C-React Prot High Sens NT-Pro-B Natriuret Pep Total Protein Albumin Globulin Albumin/Globulin Ratio Triglycerides Cholesterol LDL Cholesterol Direct HDL Cholesterol Procalcitonin Free T4 TSH 3rd Generation Plasma Cortisol PM Venous Blood Potassium Urine Color Yellow Urine Clarity Hazy Urine pH 6.0 Ur Specific [place] 1.015 Urine Protein 2+ H Urine Glucose (UA) 3+ H Urine Ketones Negative Urine Blood 1+ H Urine Nitrate Positive H Urine Bilirubin Negative Urine Urobilinogen Normal Ur Leukocyte Esterase 3+ H Urine WBC (Auto) 161 H Urine RBC (Auto) 79 H Ur Squamous Epith Cells 4 Urine Bacteria Mod H Urine Opiates Screen Negative Urine Methadone Screen Negative Ur Barbiturates Screen Negative Ur Phencyclidine Scrn Negative Ur Amphetamines Screen Negative U Benzodiazepines Scrn Positive U Oth Cocaine Metabols Negative U Cannabinoids Screen Negative Serum Ketones 01/09/17 01/09/17 01/09/17 01:40 03:25 07:08 WBC RBC Hgb Hct MCV MCH MCHC RDW Plt Count MPV Neut % (Auto) Lymph % (Auto) [place] % (Auto) Eos % (Auto) Baso % (Auto) Neut # Lymph # [place] # Eos # Baso # Neutrophils % (Manual) Lymphocytes % (Manual) Monocytes % (Manual) Platelet Estimate ESR PT INR APTT pO2 36 VBG pH 7.35 VBG pCO2 46 VBG HCO3 23.6 VBG Total CO2 26.8 VBG O2 Sat (Calc) 73.6 H VBG Base Excess -0.6 L VBG Potassium 3.5 L Glucose 336 H Lactate 3.5 H Liter Flow Blood Gas Comments Crit Value Called To Crit Value Called By Crit Value Read Back Blood Gas Notified Time Sodium 135.0 Potassium Chloride 102.0 Carbon Dioxide Anion Gap BUN Creatinine Est GFR ( Amer) Est GFR (Non-Af Amer) POC Glucose (mg/dL) 355 H 340 H Random Glucose Hemoglobin A1c Lactic Acid Calcium Phosphorus Magnesium Total Bilirubin AST ALT Alkaline Phosphatase Troponin I C-React Prot High Sens NT-Pro-B Natriuret Pep Total Protein Albumin Globulin Albumin/Globulin Ratio Triglycerides Cholesterol LDL Cholesterol Direct HDL Cholesterol Procalcitonin Free T4 TSH 3rd Generation Plasma Cortisol PM Venous Blood Potassium 3.5 L Urine Color Urine Clarity Urine pH Ur Specific [place] Urine Protein Urine Glucose (UA) Urine Ketones Urine Blood Urine Nitrate Urine Bilirubin Urine Urobilinogen Ur Leukocyte Esterase Urine WBC (Auto) Urine RBC (Auto) Ur Squamous Epith Cells Urine Bacteria Urine Opiates Screen Urine Methadone Screen Ur Barbiturates Screen Ur Phencyclidine Scrn Ur Amphetamines Screen U Benzodiazepines Scrn U Oth Cocaine Metabols U Cannabinoids Screen Serum Ketones 01/09/17 01/09/17 01/09/17 10:10 10:55 11:34 WBC RBC Hgb Hct MCV MCH MCHC RDW Plt Count MPV Neut % (Auto) Lymph % (Auto) [place] % (Auto) Eos % (Auto) Baso % (Auto) Neut # Lymph # [place] # Eos # Baso # Neutrophils % (Manual) Lymphocytes % (Manual) Monocytes % (Manual) Platelet Estimate ESR PT INR APTT pO2 34 VBG pH 7.34 VBG pCO2 44 VBG HCO3 22.2 VBG Total CO2 25.1 VBG O2 Sat (Calc) 74.3 H VBG Base Excess -2.2 L VBG Potassium 4.8 Glucose 316 H Lactate 4.7 H* Liter Flow 2.0 Blood Gas Comments Crit Value Called To Rodolfo sanchez do Crit Value Called By Rena kaminski teacher adventure education Crit Value Read Back Y Blood Gas Notified Time 1100 Sodium 134.0 Potassium Chloride 99.0 Carbon Dioxide Anion Gap BUN Creatinine Est GFR ( Amer) Est GFR (Non-Af Amer) POC Glucose (mg/dL) 339 H Random Glucose Hemoglobin A1c Lactic Acid Calcium Phosphorus Magnesium Total Bilirubin AST ALT Alkaline Phosphatase Troponin I C-React Prot High Sens NT-Pro-B Natriuret Pep Total Protein Albumin Globulin Albumin/Globulin Ratio Triglycerides Cholesterol LDL Cholesterol Direct HDL Cholesterol Procalcitonin Free T4 1.24 TSH 3rd Generation Plasma Cortisol PM Venous Blood Potassium 4.8 Urine Color Urine Clarity Urine pH Ur Specific [place] Urine Protein Urine Glucose (UA) Urine Ketones Urine Blood Urine Nitrate Urine Bilirubin Urine Urobilinogen Ur Leukocyte Esterase Urine WBC (Auto) Urine RBC (Auto) Ur Squamous Epith Cells Urine Bacteria Urine Opiates Screen Urine Methadone Screen Ur Barbiturates Screen Ur Phencyclidine Scrn Ur Amphetamines Screen U Benzodiazepines Scrn U Oth Cocaine Metabols U Cannabinoids Screen Serum Ketones 01/09/17 01/09/17 01/09/17 11:34 11:34 11:34 WBC 3.8 L D RBC 3.93 Hgb 12.3 Hct 36.3 MCV 92.3 MCH 31.4 H MCHC 34.0 RDW 13.1 Plt Count 256 MPV 7.2 Neut % (Auto) 82.5 H Lymph % (Auto) 16.0 L [place] % (Auto) 0.7 Eos % (Auto) 0.5 Baso % (Auto) 0.3 Neut # 3.1 Lymph # 0.6 L [place] # 0.0 Eos # 0.0 Baso # 0.0 Neutrophils % (Manual) Lymphocytes % (Manual) Monocytes % (Manual) Platelet Estimate ESR 50 H PT 11.5 INR 1.0 APTT 26 pO2 VBG pH VBG pCO2 VBG HCO3 VBG Total CO2 VBG O2 Sat (Calc) VBG Base Excess VBG Potassium Glucose Lactate Liter Flow Blood Gas Comments Crit Value Called To Crit Value Called By Crit Value Read Back Blood Gas Notified Time Sodium Potassium Chloride Carbon Dioxide Anion Gap BUN Creatinine Est GFR ( Amer) Est GFR (Non-Af Amer) POC Glucose (mg/dL) Random Glucose Hemoglobin A1c Lactic Acid Calcium Phosphorus Magnesium Total Bilirubin AST ALT Alkaline Phosphatase Troponin I < 0.0120 C-React Prot High Sens NT-Pro-B Natriuret Pep 1200 H Total Protein Albumin Globulin Albumin/Globulin Ratio Triglycerides Cholesterol LDL Cholesterol Direct HDL Cholesterol Procalcitonin Free T4 TSH 3rd Generation Plasma Cortisol PM Venous Blood Potassium Urine Color Urine Clarity Urine pH Ur Specific [place] Urine Protein Urine Glucose (UA) Urine Ketones Urine Blood Urine Nitrate Urine Bilirubin Urine Urobilinogen Ur Leukocyte Esterase Urine WBC (Auto) Urine RBC (Auto) Ur Squamous Epith Cells Urine Bacteria Urine Opiates Screen Urine Methadone Screen Ur Barbiturates Screen Ur Phencyclidine Scrn Ur Amphetamines Screen U Benzodiazepines Scrn U Oth Cocaine Metabols U Cannabinoids Screen Serum Ketones 01/09/17 01/09/17 01/09/17 11:34 11:34 11:34 WBC RBC Hgb Hct MCV MCH MCHC RDW Plt Count MPV Neut % (Auto) Lymph % (Auto) [place] % (Auto) Eos % (Auto) Baso % (Auto) Neut # Lymph # [place] # Eos # Baso # Neutrophils % (Manual) Lymphocytes % (Manual) Monocytes % (Manual) Platelet Estimate ESR PT INR APTT pO2 VBG pH VBG pCO2 VBG HCO3 VBG Total CO2 VBG O2 Sat (Calc) VBG Base Excess VBG Potassium Glucose Lactate Liter Flow Blood Gas Comments Crit Value Called To Crit Value Called By Crit Value Read Back Blood Gas Notified Time Sodium Potassium Chloride Carbon Dioxide Anion Gap BUN Creatinine Est GFR ( Amer) Est GFR (Non-Af Amer) POC Glucose (mg/dL) Random Glucose Hemoglobin A1c Lactic Acid Calcium Phosphorus Magnesium Total Bilirubin AST ALT Alkaline Phosphatase Troponin I C-React Prot High Sens > 15.00 H NT-Pro-B Natriuret Pep Total Protein Albumin Globulin Albumin/Globulin Ratio Triglycerides Cholesterol LDL Cholesterol Direct HDL Cholesterol Procalcitonin 6.42 H Free T4 TSH 3rd Generation Plasma Cortisol PM 33.3 H Venous Blood Potassium Urine Color Urine Clarity Urine pH Ur Specific [place] Urine Protein Urine Glucose (UA) Urine Ketones Urine Blood Urine Nitrate Urine Bilirubin Urine Urobilinogen Ur Leukocyte Esterase Urine WBC (Auto) Urine RBC (Auto) Ur Squamous Epith Cells Urine Bacteria Urine Opiates Screen Urine Methadone Screen Ur Barbiturates Screen Ur Phencyclidine Scrn Ur Amphetamines Screen U Benzodiazepines Scrn U Oth Cocaine Metabols U Cannabinoids Screen Serum Ketones 01/09/17 01/09/17 01/09/17 11:34 11:38 11:39 WBC RBC Hgb Hct MCV MCH MCHC RDW Plt Count MPV Neut % (Auto) Lymph % (Auto) [place] % (Auto) Eos % (Auto) Baso % (Auto) Neut # Lymph # [place] # Eos # Baso # Neutrophils % (Manual) Lymphocytes % (Manual) Monocytes % (Manual) Platelet Estimate ESR PT INR APTT pO2 VBG pH VBG pCO2 VBG HCO3 VBG Total CO2 VBG O2 Sat (Calc) VBG Base Excess VBG Potassium Glucose Lactate Liter Flow Blood Gas Comments Crit Value Called To Crit Value Called By Crit Value Read Back Blood Gas Notified Time Sodium 131 L Potassium 3.6 Chloride 96 L Carbon Dioxide 23 Anion Gap 16 BUN 18 H Creatinine 0.9 Est GFR ( Amer) > 60 Est GFR (Non-Af Amer) > 60 POC Glucose (mg/dL) 286 H Random Glucose 294 H Hemoglobin A1c Lactic Acid 4.9 H* Calcium 8.1 L Phosphorus 3.0 Magnesium 1.6 Total Bilirubin 0.7 AST 22 ALT 24 Alkaline Phosphatase 101 Troponin I C-React Prot High Sens NT-Pro-B Natriuret Pep Total Protein 7.6 Albumin 3.5 Globulin 4.1 H Albumin/Globulin Ratio 0.9 L Triglycerides 139 Cholesterol 160 LDL Cholesterol Direct 80 HDL Cholesterol 68 Procalcitonin Free T4 TSH 3rd Generation 1.15 Plasma Cortisol PM Venous Blood Potassium Urine Color Urine Clarity Urine pH Ur Specific [place] Urine Protein Urine Glucose (UA) Urine Ketones Urine Blood Urine Nitrate Urine Bilirubin Urine Urobilinogen Ur Leukocyte Esterase Urine WBC (Auto) Urine RBC (Auto) Ur Squamous Epith Cells Urine Bacteria Urine Opiates Screen Urine Methadone Screen Ur Barbiturates Screen Ur Phencyclidine Scrn Ur Amphetamines Screen U Benzodiazepines Scrn U Oth Cocaine Metabols U Cannabinoids Screen Serum Ketones 01/09/17 01/09/17 15:05 16:14 WBC RBC Hgb Hct MCV MCH MCHC RDW Plt Count MPV Neut % (Auto) Lymph % (Auto) [place] % (Auto) Eos % (Auto) Baso % (Auto) Neut # Lymph # [place] # Eos # Baso # Neutrophils % (Manual) Lymphocytes % (Manual) Monocytes % (Manual) Platelet Estimate ESR PT INR APTT pO2 50 VBG pH 7.39 VBG pCO2 33 L VBG HCO3 21.4 VBG Total CO2 21.0 L VBG O2 Sat (Calc) 92.5 H VBG Base Excess -4.1 L VBG Potassium 3.2 L Glucose 282 H Lactate 1.5 Liter Flow 2.0 Blood Gas Comments Abg Crit Value Called To Crit Value Called By Crit Value Read Back N Blood Gas Notified Time Sodium 134.0 Potassium Chloride 104.0 Carbon Dioxide Anion Gap BUN Creatinine Est GFR ( Amer) Est GFR (Non-Af Amer) POC Glucose (mg/dL) 312 H Random Glucose Hemoglobin A1c Lactic Acid Calcium Phosphorus Magnesium Total Bilirubin AST ALT Alkaline Phosphatase Troponin I C-React Prot High Sens NT-Pro-B Natriuret Pep Total Protein Albumin Globulin Albumin/Globulin Ratio Triglycerides Cholesterol LDL Cholesterol Direct HDL Cholesterol Procalcitonin Free T4 TSH 3rd Generation Plasma Cortisol PM Venous Blood Potassium 3.2 L Urine Color Urine Clarity Urine pH Ur Specific [place] Urine Protein Urine Glucose (UA) Urine Ketones Urine Blood Urine Nitrate Urine Bilirubin Urine Urobilinogen Ur Leukocyte Esterase Urine WBC (Auto) Urine RBC (Auto) Ur Squamous Epith Cells Urine Bacteria Urine Opiates Screen Urine Methadone Screen Ur Barbiturates Screen Ur Phencyclidine Scrn Ur Amphetamines Screen U Benzodiazepines Scrn U Oth Cocaine Metabols U Cannabinoids Screen Serum Ketones
[2017-01-09] MEDS: (Lantus) Insulin Glargine, Recombinant SC SCH (21:23)
[2017-01-10] MEDS: Potassium Chloride 20 MEQ in Sodium Chloride 0.45% 1,000 ML IV SCH ×5 (00:20→23:57)
[2017-01-10] MEDS: Aztreonam 2 GM in Dextrose 5% In Water 100 ML IVPB SCH ×3 (02:00→17:43)
--- NOTE | 2017-01-10 04:36 | CON ---
DATE: HISTORY OF PRESENT ILLNESS: This patient is a 71-year-old female. I remember seeing her not too long ago for UTI and she also had Staph epi that time which was a contaminant. The patient at this time had a rapid response this morning and she was admitted with being incontinent, peeing all the time, and being nauseous. She was recently discharged from the [facility]. I remember before she was admitted for multiple falls. She is incontinent. She is diabetic. She has history of anxiety, depression, hypertension, hyperlipidemia, CHF, irritable bowel disease, coronary artery disease and morbid obesity. She was admitted with abdominal pain which was dull; it was suprapubic associated with polyuria and polydipsia. She also states she is wheelchair bound and only walks with a walker. She also has arthritis and she has lost few toes on her left foot. I am asked to evaluate for IV antibiotics. ALLERGIES: SHE IS ALLERGIC TO PENICILLIN, GETS RASH. PAST MEDICAL HISTORY: Anxiety, depression, hypertension, hyperlipidemia, IBS with diarrhea, diabetes and coronary artery disease. 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 FAMILY HISTORY: Mom of rheumatic heart disease. SOCIAL HISTORY: Stopped smoking 20 years ago. Used to drink socially, but has not at all in 4 years. No drugs. Lives at home. REVIEW OF SYSTEMS: She is very talkative and just wanders off on telling her complaints. She has no chills and no ears, nose and throat problems, but she is hard of hearing. She denies any chest pain, denies any cough. Does have abdominal pain. Complains of bloating, diarrhea, nausea and vomiting and also has incontinence. Since she has had many antibiotics in the past, I would also check up her C. diff. Extremities have dry skin. Both feet appear swollen. Her past medical history is significant for former smoker, high cholesterol, hypertension and peripheral edema. She also has history cataracts. Denies any kidney problems. She does have hypothyroidism. Endocrine enamorado; she has diabetes. She has no hematological problems, no derm problems. History of arthritis, history of GI problems, irritable bowel disease, has history of uterine cancer, hysterectomy was done in 2007, history of cholecystectomy, history of coronary stents and allergies to penicillin. PHYSICAL EXAMINATION: GENERAL: She is awake and alert. Right now, she is getting IV fluids. HEENT: Head is atraumatic and normocephalic. NECK: Supple. JVP is flat. LUNGS: Clear. No crackles or rales present. HEART: S1 and S2 regular. ABDOMEN: Soft and nontender. No guarding and no rigidity present. EXTREMITIES: Have bilateral edema of lower extremities along with the feet. LABORATORY DATA: Labs are noted. Labs show white count is 3.8, hemoglobin 12.3, hematocrit 36.3, platelet count is 258, neutrophils 82.5 and ESR is 50. ABG is okay. Lactate level was 4.7 and 3.5, now it is 1.5, they are following from the ABG. Glucose was 312 now when I am dictating. ASSESSMENT AND PLAN: I have done a septic workup which I do not see right now any report. Blood cultures were received and urine culture was received it seems like, so we will follow those and at this time, she is on Azactam q. 8 hours. We will leave her on that and will follow the urine culture and blood culture reports. The patient has diabetes, obesity and we will follow. Nikky Kumar MD
[2017-01-10] MEDS: (Novolog) Insulin Aspart, Recombinant 100 u/ml 10 ml vial SC SCH ×3 (07:34→17:40)
[2017-01-10 08:02] LABS: BASO # 0.1 K/uL (0.0-0.2); BASO % 0.6 % (0.0-2.0); EOS # 0.2 K/uL (0.0-0.7); EOS % 1.5 % (0.0-4.0); HEMATOCRIT 33.3 % (34.0-47.0); LYMPH % 7.7 % (20.0-40.0); MEAN CORPUSCULAR HEMOGLOBIN 31.2 pg (27.0-31.0); MEAN CORPUSCULAR HGB CONC 33.5 g/dL (33.0-37.0); MEAN PLATELET VOLUME 8.1 fL (7.2-11.7); MONO # 1.1 K/uL (0.0-0.8); MONO % 9.1 % (0.0-10.0); PLATELET COUNT 198 K/uL (130-400); RED CELL DISTRIBUTION WIDTH 13.3 % (11.5-14.5)
[2017-01-10 08:08] LABS: POTASSIUM 4.1 mmol/L (3.6-5.2)
[2017-01-10 08:10] LABS: ALB/GLOB RATIO 0.8 (1.0-2.1); BILIRUBIN,TOTAL 0.3 mg/dL (0.2-1.3); TOTAL PROTEIN 6.6 g/dL (6.3-8.3)
[2017-01-10 08:11] LABS: CALCIUM 7.6 mg/dl (8.6-10.4); MAGNESIUM 1.7 mg/dL (1.6-2.3); PHOSPHOROUS 3.2 mg/dL (2.5-4.5)
[2017-01-10 08:17] LABS: WHITE BLOOD COUNT 12.5 K/uL (4.8-10.8)
[2017-01-10 09:43] LABS: GIANT PLATELETS PRESENT; METAMYELOCYTE 1 % (0-0); MYELOCYTE 1 % (0-0); NEUTROPHIL 79 % (50-75); TOTAL CELLS COUNTED 100
--- NOTE | 2017-01-10 14:51 | CARD ---
APPROVED REPORT EXAM: Two-dimensional and M-mode echocardiogram with Doppler and color Doppler. Other Information Quality : GoodRhythm : INDICATION Cardiac Disease: CAD Congestive Heart Failure R/O VEGETATION M-Mode DIMENSIONS Left Atrium (MM)5.00 (2.5-4.0cm)IVSd1.40 (0.7-1.1cm) Aortic Root2.73 (2.2-3.7cm)LVDd4.88 (4.0-5.6cm) Aortic Cusp Exc.1.37 (1.5-2.0cm)PWd1.24 (0.7-1.1cm) FS (%) 39 %LVDs2.96 (2.0-3.8cm) LVEF (%)70 (>50%) Mitral Valve MV E Qxebfqut667.3cm/sMV A Glopfijy221.9cm/sE/A ratio1.1 TDI E/Lateral E'0.0E/Medial E'0.0 Tricuspid Valve TR Peak [id number]/sTR Peak Gr.[id number] LEFT VENTRICLE The left ventricle is normal size. There is mild concentric left ventricular hypertrophy. The left ventricular function is normal. The left ventricular ejection fraction is within the normal range. There is normal LV segmental wall motion. Tissue Doppler imaging reveals moderate left ventricular diastolic dysfunction. No left ventricle thrombus noted on this study. There is no ventricular septal defect visualized. There is no left ventricular aneurysm. There is no mass noted in the left ventricle. RIGHT VENTRICLE The right ventricle is normal size. There is normal right ventricular wall thickness. The right ventricular systolic function is normal. ATRIA The left atrium is moderately dilated. The right atrium size is normal. The interatrial septum is intact with no evidence for an atrial septal defect. AORTIC VALVE The aortic valve is normal in structure. No aortic regurgitation is present. There is no aortic valvular stenosis. There is no aortic valvular vegetation. MITRAL VALVE Mitral annular calcification is mild. There is no mitral valve stenosis. There is no mitral valve regurgitation noted. TRICUSPID VALVE The tricuspid valve is normal in structure. There is mild tricuspid regurgitation. PULMONIC VALVE The pulmonary valve is normal in structure. GREAT VESSELS The aortic root displays mild sclerocalcific changes of the aortic root. The ascending aorta is normal in size. PERICARDIAL EFFUSION There is no pericardial effusion. <Conclusion> There is mild concentric left ventricular hypertrophy. Tissue Doppler imaging reveals moderate left ventricular diastolic dysfunction. The left atrium is moderately dilated. There is mild tricuspid regurgitation. lvef is 70%.
--- NOTE | 2017-01-10 16:08 | CP.PCM.PN ---
<Santosh Nguyễn - Last Filed: 01/10/17 16:11> Subjective - Date & Time of Evaluation Date of Evaluation: 01/10/17 Time of Evaluation: 16:00 - Subjective Subjective: Progress note. Attending: Dr. Villarreal Pt seen and examined at bedside. No acute distress. No events overnight. Pt is still getting some chills and sugars have been on the higher side. No fevers, vomiting, diarrhea. Objective - Vital Signs/Intake and Output Vital Signs (last 24 hours): Temp Pulse Resp BP Pulse Ox 98.5 F 77 20 137/77 97 01/10/17 07:19 01/10/17 07:19 01/10/17 07:19 01/10/17 07:19 01/10/17 07:19 Intake and Output: 01/10/17 01/10/17 06:59 18:59 Intake Total 2350 1600 Output Total 1150 5600 Balance 1200 -4000 - Medications Medications: Current Medications Alprazolam (Xanax) 1 mg PO TID PRN PRN Reason: Anxiety Last Admin: 01/09/17 17:25 Dose: 1 mg Aspirin (Ecotrin) 81 mg PO DAILY [facility] Last Admin: 01/10/17 09:46 Dose: 81 mg Clopidogrel Bisulfate (Plavix) 75 mg PO DAILY [facility] Last Admin: 01/10/17 09:46 Dose: 75 mg Docusate Sodium (Colace) 100 mg PO DAILY [facility] Last Admin: 01/10/17 09:46 Dose: 100 mg Fluoxetine HCl (Prozac) 40 mg PO DAILY [facility] Last Admin: 01/10/17 09:45 Dose: 40 mg Gabapentin (Neurontin) 100 mg PO TID [facility] Last Admin: 01/10/17 13:54 Dose: 100 mg Heparin Sodium (Porcine) (Heparin) 5,000 units SC Q12 [facility] Last Admin: 01/10/17 09:46 Dose: 5,000 units Potassium Chloride 20 meq/ (Sodium Chloride) 1,010 mls @ 100 mls/hr IV .[id number] [facility] Last Admin: 01/10/17 13:56 Dose: 100 mls/hr Aztreonam 2 gm/ Dextrose 100 mls @ 200 mls/hr IVPB Q8H [facility] Last Admin: 01/10/17 09:45 Dose: 200 mls/hr Insulin Aspart (Novolog) 10 unit SC TIDAC [facility] Last Admin: 01/10/17 11:57 Dose: 10 unit Insulin Glargine (Lantus) [address] [facility] Last Admin: 01/09/17 21:23 Dose: 30 u Losartan Potassium (Cozaar) 100 mg PO DAILY [facility] Last Admin: 01/10/17 09:46 Dose: 100 mg Ondansetron HCl (Zofran Inj) 4 mg IVP Q6 PRN PRN Reason: Nausea/Vomiting Last Admin: 01/09/17 10:30 Dose: 4 mg Rosuvastatin Calcium (Crestor) [address] [facility] Last Admin: 01/09/17 21:21 Dose: 10 mg Trazodone HCl (Desyrel) [address] [facility] Last Admin: 01/09/17 21:22 Dose: 50 mg - Labs Labs: 01/10/17 07:38 01/10/17 07:38 PT 11.5 SECONDS (9.7-12.2) 01/09/17 11:34 INR 1.0 01/09/17 11:34 APTT 26 SECONDS (21-34) 01/09/17 11:34 - Constitutional Appears: No Acute Distress, Older Than Stated Age - Head Exam Head Exam: ATRAUMATIC, NORMAL INSPECTION, NORMOCEPHALIC - Eye Exam Eye Exam: EOMI - ENT Exam ENT Exam: Mucous Membranes Moist - Respiratory Exam Respiratory Exam: Decreased Breath Sounds. absent: Respiratory Distress - Cardiovascular Exam Cardiovascular Exam: +S1, +S2 - GI/Abdominal Exam GI & Abdominal Exam: Soft, Normal Bowel Sounds. absent: Tenderness - Extremities Exam Extremities Exam: Full ROM, Normal Inspection - Neurological Exam Neurological Exam: Alert, Awake, Oriented x3 - Psychiatric Exam Psychiatric exam: Normal Affect, Normal Mood - Skin Skin Exam: Dry, Intact, Normal Color, Warm Assessment and Plan - Assessment and Plan (Free Text) Assessment: This is a 71 yo female with Urosepsis -ID consulted. Dr. Kumar. recs appreciated -1 blood culture has been positive for gram negative erendira -1 urine culture has been positive for gram negative erendira -the other blood culture is negative thus far. -aztreonam 2 g q 8 hrs (start date 01/09/2017) Type two diabetes mellitus, uncontrolled Patient admits non-compliance for last several days HgA1C (09/17/16): 12.4 - initial BG 460 on presentation ISS Lantus 30U HS Novalog 10U TID AC Neurontin 100 mg PO TID Accuchecks Diabetic diet History of CAD Hx of cardiac stent placement (2015) Plavix 75 mg PO daily ASA 81mg PO daily Crestor 10mg PO HS ECHO (09/16/16): EF 50%; the left ventricle is normal size. There is normal left ventricular wall thickness. Left ventricle is boderline. There is normal LV segmental wall motion. Transmitral doppler chicho pattern is Grade I-abnormal relaxation pattern. Mitral regurgitation is mild. CHF (congestive heart failure), NYHA class I mild diastolic CHF preload dependent HTN Initially hypertensive, Well controlled Hold Home Norvasc due to peripheral edema Losartan 100mg PO daily Abnormal UDS Positive for Benzodiazepines Urinary Incontinence -Patient admits wearing diapers at home -continue patel Depression/ anxiety Xanax 1 mg PO TID PRN Prozac 40 mg PO daily Insomnia continue trazodone 50 mg PO HS LE pain and edema Non-pitting Compression stockings History of falls Pt denies fall since discharge from [facility] in November CT Head (01/09/17): 1. No intracranial hemorrhage. 2. Nonspecific white matter changes (see full report) GI/DVT ppx Pepcid 20 mg PO BID Heparin 5000u Q12H PT/OT Dispo: pending culture and sensitivities and ID input regarding length of stay. <Geena Villarreal - Last Filed: 01/11/17 22:07> Objective - Vital Signs/Intake and Output Vital Signs (last 24 hours): Temp Pulse Resp BP Pulse Ox 98.3 F 74 20 162/71 H 96 01/11/17 15:00 01/11/17 15:00 01/11/17 15:00 01/11/17 15:00 01/11/17 15:00 Intake and Output: 01/11/17 01/12/17 18:59 06:59 Intake Total 1130 Output Total 4800 Balance -3670 - Medications Medications: Current Medications Alprazolam (Xanax) 1 mg PO TID PRN PRN Reason: Anxiety Last Admin: 01/11/17 21:46 Dose: 1 mg Aspirin (Ecotrin) 81 mg PO DAILY [facility] Last Admin: 01/11/17 10:10 Dose: 81 mg Clopidogrel Bisulfate (Plavix) 75 mg PO DAILY [facility] Last Admin: 01/11/17 10:10 Dose: 75 mg Clotrimazole (Lotrimin 1%) 1 gm TOP BID [facility] Docusate Sodium (Colace) 100 mg PO DAILY [facility] Last Admin: 01/11/17 10:10 Dose: Not Given Fluoxetine HCl (Prozac) 40 mg PO DAILY [facility] Last Admin: 01/11/17 10:09 Dose: 40 mg Gabapentin (Neurontin) 100 mg PO TID [facility] Last Admin: 01/11/17 17:28 Dose: 100 mg Heparin Sodium (Porcine) (Heparin) 5,000 units SC Q12 [facility] Last Admin: 01/11/17 21:38 Dose: 5,000 units Aztreonam 2 gm/ Dextrose 100 mls @ 200 mls/hr IVPB Q8H [facility] Last Admin: 01/11/17 17:30 Dose: 200 mls/hr Sodium Chloride (Sodium Chloride 0.9%) 1,000 mls @ 80 mls/hr IV .[id number] [facility] Last Admin: 01/11/17 14:30 Dose: 80 mls/hr Insulin Aspart (Novolog) 10 unit SC TIDAC [facility] Last Admin: 01/11/17 17:28 Dose: 10 unit Insulin Glargine (Lantus) 50 unit SC HS [facility] Last Admin: 01/11/17 21:38 Dose: 50 units Insulin Human Regular (Novolin R) 0 unit SC ACHS [facility] PRN Reason: Protocol Last Admin: 01/11/17 21:39 Dose: Not Given Losartan Potassium (Cozaar) 100 mg PO DAILY [facility] Last Admin: 01/11/17 10:10 Dose: 100 mg Ondansetron HCl (Zofran Inj) 4 mg IVP Q6 PRN PRN Reason: Nausea/Vomiting Last Admin: 01/09/17 10:30 Dose: 4 mg Rosuvastatin Calcium (Crestor) 10 mg PO HS [facility] Last Admin: 01/11/17 21:37 Dose: 10 mg Trazodone HCl (Desyrel) 50 mg PO HS [facility] Last Admin: 01/11/17 21:37 Dose: 50 mg - Labs Labs: 01/11/17 09:06 01/11/17 09:06 PT 11.5 SECONDS (9.7-12.2) 01/09/17 11:34 INR 1.0 01/09/17 11:34 APTT 26 SECONDS (21-34) 01/09/17 11:34 Attending/Attestation - Attestation I have personally seen and examined this patient.: Yes I have fully participated in the care of the patient.: Yes I have reviewed all pertinent clinical information, including history, physical exam and plan: Yes Notes (Text): Patient was seen and examined,feels better.Poor appetite continue Azactum,hoe meds and follow C/s D/W the resident I agree with the residents documentation of the assessment and the plan
[2017-01-10] MEDS: (Novolin R) Insulin Human Regular 100 units/ml vial SC SCH ×2 (17:39→21:28)
[2017-01-10] MEDS: (Lantus) Insulin Glargine, Recombinant SC SCH (21:26)
[2017-01-11] MEDS: Aztreonam 2 GM in Dextrose 5% In Water 100 ML IVPB SCH ×3 (02:34→17:30)
[2017-01-11] MEDS: Potassium Chloride 20 MEQ in Sodium Chloride 0.45% 1,000 ML IV SCH (07:44)
[2017-01-11] MEDS: (Novolog) Insulin Aspart, Recombinant 100 u/ml 10 ml vial SC SCH ×3 (08:07→17:28)
[2017-01-11] MEDS: (Novolin R) Insulin Human Regular 100 units/ml vial SC SCH ×4 (08:09→21:39)
[2017-01-11 09:15] LABS: BASO % 0.5 % (0.0-2.0); EOS # 0.1 K/uL (0.0-0.7); EOS % 1.2 % (0.0-4.0); HEMATOCRIT 33.3 % (34.0-47.0); LYMPH # 0.7 K/uL (1.0-4.3); LYMPH % 8.3 % (20.0-40.0); MEAN CELL VOLUME 92.1 fL (81.0-99.0); MEAN CORPUSCULAR HGB CONC 33.7 g/dL (33.0-37.0); MONO # 0.9 K/uL (0.0-0.8); MONO % 10.7 % (0.0-10.0); PLATELET COUNT 192 K/uL (130-400); RED CELL DISTRIBUTION WIDTH 12.9 % (11.5-14.5); WHITE BLOOD COUNT 8.3 K/uL (4.8-10.8)
[2017-01-11 09:32] LABS: CHLORIDE 98 mmol/L (98-107)
[2017-01-11 09:33] LABS: POTASSIUM 4.3 mmol/L (3.6-5.2); SODIUM 127 mmol/L (132-148)
[2017-01-11 09:35] LABS: ALB/GLOB RATIO 0.7 (1.0-2.1); ALKALINE PHOSPHATASE 66 U/L (38-126); ALT/SGPT 28 U/L (9-52); AST/SGOT 14 U/L (14-36); BILIRUBIN,TOTAL 0.2 mg/dL (0.2-1.3); BLOOD UREA NITROGEN 18 mg/dL (7-17); CARBON DIOXIDE 21 mmol/L (22-30); GFR AFRICAN-AMERICAN > 60; GLUCOSE,RANDOM 314 mg/dL (65-105); PHOSPHOROUS 2.9 mg/dL (2.5-4.5); TOTAL PROTEIN 6.6 g/dL (6.3-8.3)
[2017-01-11 09:36] LABS: CALCIUM 7.8 mg/dl (8.6-10.4); MAGNESIUM 1.7 mg/dL (1.6-2.3)
[2017-01-11] MEDS ORDERED: Influenza Vaccine 60 mcg/0.5 mL SYR (4YR UP) IM ONE (10:00)
[2017-01-11 10:12] LABS: BASOPHIL 1 % (0-2); NEUTROPHIL 75 % (50-75); REACTIVE LYMPHOCYTES 3 % (0-0); TOTAL CELLS COUNTED 100
[2017-01-11] MEDS: Sodium Chloride 0.9% 1,000 ML IV SCH (14:30)
--- NOTE | 2017-01-11 15:10 | CP.PCM.PN ---
<Santosh Nguyễn - Last Filed: 01/11/17 15:11> Subjective - Date & Time of Evaluation Date of Evaluation: 01/11/17 Time of Evaluation: 15:00 - Subjective Subjective: Progress note. Attending: Dr. Villarreal. Pt seen and examined at [facility]. No acute distress. No more fevers. A little on the dry side, will restart NS fluids. No vomiting, diarrhea, cp, sob. Objective - Vital Signs/Intake and Output Vital Signs (last 24 hours): Temp Pulse Resp BP Pulse Ox 97.9 F 87 20 155/79 H 96 01/11/17 08:17 01/11/17 08:17 01/11/17 08:17 01/11/17 08:17 01/11/17 08:17 Intake and Output: 01/11/17 01/11/17 06:59 18:59 Intake Total 1800 1130 Output Total 3500 4800 Balance -1700 -3670 - Medications Medications: Current Medications Alprazolam (Xanax) 1 mg PO TID PRN PRN Reason: Anxiety Last Admin: 01/11/17 08:07 Dose: 1 mg Aspirin (Ecotrin) 81 mg PO DAILY [facility] Last Admin: 01/11/17 10:10 Dose: 81 mg Clopidogrel Bisulfate (Plavix) 75 mg PO DAILY [facility] Last Admin: 01/11/17 10:10 Dose: 75 mg Docusate Sodium (Colace) 100 mg PO DAILY [facility] Last Admin: 01/11/17 10:10 Dose: Not Given Fluoxetine HCl (Prozac) 40 mg PO DAILY [facility] Last Admin: 01/11/17 10:09 Dose: 40 mg Gabapentin (Neurontin) 100 mg PO TID [facility] Last Admin: 01/11/17 13:02 Dose: 100 mg Heparin Sodium (Porcine) (Heparin) 5,000 units SC Q12 [facility] Last Admin: 01/11/17 10:10 Dose: 5,000 units Aztreonam 2 gm/ Dextrose 100 mls @ 200 mls/hr IVPB Q8H [facility] Last Admin: 01/11/17 10:11 Dose: 200 mls/hr Sodium Chloride (Sodium Chloride 0.9%) 1,000 mls @ 80 mls/hr IV .[id number] [facility] Last Admin: 01/11/17 14:30 Dose: 80 mls/hr Insulin Aspart (Novolog) 10 unit SC TIDAC [facility] Last Admin: 01/11/17 12:20 Dose: 10 unit Insulin Glargine (Lantus) 50 unit SC [facility] Insulin Human Regular (Novolin R) 0 unit SC ACHS [facility] PRN Reason: Protocol Last Admin: 01/11/17 12:20 Dose: 3 unit Losartan Potassium (Cozaar) 100 mg PO DAILY [facility] Last Admin: 01/11/17 10:10 Dose: 100 mg Ondansetron HCl (Zofran Inj) 4 mg IVP Q6 PRN PRN Reason: Nausea/Vomiting Last Admin: 01/09/17 10:30 Dose: 4 mg Rosuvastatin Calcium (Crestor) 10 mg PO HS [facility] Last Admin: 01/10/17 21:25 Dose: 10 mg Trazodone HCl (Desyrel) 50 mg PO [facility] Last Admin: 01/10/17 21:25 Dose: 50 mg - Labs Labs: 01/11/17 09:06 01/11/17 09:06 PT 11.5 SECONDS (9.7-12.2) 01/09/17 11:34 INR 1.0 01/09/17 11:34 APTT 26 SECONDS (21-34) 01/09/17 11:34 - Constitutional Appears: Non-toxic, No Acute Distress - Head Exam Head Exam: ATRAUMATIC, NORMAL INSPECTION, NORMOCEPHALIC - Eye Exam Eye Exam: EOMI - ENT Exam ENT Exam: Mucous Membranes Moist - Neck Exam Neck Exam: Full ROM, Normal Inspection - Respiratory Exam Respiratory Exam: NORMAL BREATHING PATTERN. absent: Respiratory Distress - Cardiovascular Exam Cardiovascular Exam: +S1, +S2 - GI/Abdominal Exam GI & Abdominal Exam: Soft, Normal Bowel Sounds. absent: Tenderness - Extremities Exam Extremities Exam: Full ROM, Normal Inspection - Back Exam Back Exam: NORMAL INSPECTION - Neurological Exam Neurological Exam: Alert, Awake, Oriented x3 - Psychiatric Exam Psychiatric exam: Normal Affect, Normal Mood - Skin Skin Exam: Dry, Intact, Normal Color, Warm Assessment and Plan - Assessment and Plan (Free Text) Assessment: This is a 71 yo female with Urosepsis -ID consulted. Dr. Kumar. recs appreciated -1 blood culture has been positive for gram negative erendira -1 urine culture has been positive for gram negative erendira -the other blood culture is negative thus far. -aztreonam 2 g q 8 hrs (start date 01/09/2017) -will start IVF 80 cc/hr Type two diabetes mellitus, uncontrolled Patient admits non-compliance for last several days HgA1C (09/17/16): 12.4 - initial BG 460 on presentation ISS Lantus 30U HS >> increased to 50 Novalog 10U TID AC Neurontin 100 mg PO TID Accuchecks Diabetic diet History of CAD Hx of cardiac stent placement (2015) Plavix 75 mg PO daily ASA 81mg PO daily Crestor 10mg PO HS ECHO (09/16/16): EF 50%; the left ventricle is normal size. There is normal left ventricular wall thickness. Left ventricle is boderline. There is normal LV segmental wall motion. Transmitral doppler chicho pattern is Grade I-abnormal relaxation pattern. Mitral regurgitation is mild. CHF (congestive heart failure), NYHA class I mild diastolic CHF preload dependent HTN Initially hypertensive, Well controlled Hold Home Norvasc due to peripheral edema Losartan 100mg PO daily Abnormal UDS Positive for Benzodiazepines Urinary Incontinence -Patient admits wearing diapers at home -continue patel Depression/ anxiety Xanax 1 mg PO TID PRN Prozac 40 mg PO daily Insomnia continue trazodone 50 mg PO HS LE pain and edema Non-pitting Compression stockings History of falls Pt denies fall since discharge from [facility] [place] [facility] in November CT Head (01/09/17): 1. No intracranial hemorrhage. 2. Nonspecific white matter changes (see full report) GI/DVT ppx Pepcid 20 mg PO BID Heparin 5000u Q12H PT/OT Dispo: pending culture and sensitivities and ID input regarding length of stay. <Geena Villarreal - Last Filed: 01/11/17 22:04> Objective - Vital Signs/Intake and Output Vital Signs (last 24 hours): Temp Pulse Resp BP Pulse Ox 98.3 F 74 20 162/71 H 96 01/11/17 15:00 01/11/17 15:00 01/11/17 15:00 01/11/17 15:00 01/11/17 15:00 Intake and Output: 01/11/17 01/12/17 18:59 06:59 Intake Total 1130 Output Total 4800 Balance -3670 - Medications Medications: Current Medications Alprazolam (Xanax) 1 mg PO TID PRN PRN Reason: Anxiety Last Admin: 01/11/17 21:46 Dose: 1 mg Aspirin (Ecotrin) 81 mg PO DAILY [facility] Last Admin: 01/11/17 10:10 Dose: 81 mg Clopidogrel Bisulfate (Plavix) 75 mg PO DAILY [facility] Last Admin: 01/11/17 10:10 Dose: 75 mg Clotrimazole (Lotrimin 1%) 1 gm TOP BID [facility] Docusate Sodium (Colace) 100 mg PO DAILY [facility] Last Admin: 01/11/17 10:10 Dose: Not Given Fluoxetine HCl (Prozac) 40 mg PO DAILY [facility] Last Admin: 01/11/17 10:09 Dose: 40 mg Gabapentin (Neurontin) 100 mg PO TID [facility] Last Admin: 01/11/17 17:28 Dose: 100 mg Heparin Sodium (Porcine) (Heparin) 5,000 units SC Q12 [facility] Last Admin: 01/11/17 21:38 Dose: 5,000 units Aztreonam 2 gm/ Dextrose 100 mls @ 200 mls/hr IVPB Q8H [facility] Last Admin: 01/11/17 17:30 Dose: 200 mls/hr Sodium Chloride (Sodium Chloride 0.9%) 1,000 mls @ 80 mls/hr IV .[id number] [facility] Last Admin: 01/11/17 14:30 Dose: 80 mls/hr Insulin Aspart (Novolog) 10 unit SC TIDAC [facility] Last Admin: 01/11/17 17:28 Dose: 10 unit Insulin Glargine (Lantus) 50 unit SC HS [facility] Last Admin: 01/11/17 21:38 Dose: 50 units Insulin Human Regular (Novolin R) 0 unit SC ACHS [facility] PRN Reason: Protocol Last Admin: 01/11/17 21:39 Dose: Not Given Losartan Potassium (Cozaar) 100 mg PO DAILY [facility] Last Admin: 01/11/17 10:10 Dose: 100 mg Ondansetron HCl (Zofran Inj) 4 mg IVP Q6 PRN PRN Reason: Nausea/Vomiting Last Admin: 01/09/17 10:30 Dose: 4 mg Rosuvastatin Calcium (Crestor) 10 mg PO HS [facility] Last Admin: 01/11/17 21:37 Dose: 10 mg Trazodone HCl (Desyrel) 50 mg PO HS [facility] Last Admin: 01/11/17 21:37 Dose: 50 mg - Labs Labs: 01/11/17 09:06 01/11/17 09:06 PT 11.5 SECONDS (9.7-12.2) 01/09/17 11:34 INR 1.0 01/09/17 11:34 APTT 26 SECONDS (21-34) 01/09/17 11:34 Attending/Attestation - Attestation I have personally seen and examined this patient.: Yes I have fully participated in the care of the patient.: Yes I have reviewed all pertinent clinical information, including history, physical exam and plan: Yes Notes (Text): Patient was seen and examined Gram negative bacteremia and urosepsis pt feels better Sugar is elevated.Increase her insulin dose continue Azactam and folow ID
--- NOTE | 2017-01-11 18:20 | CP.PCM.PN ---
Subjective - Date & Time of Evaluation Date of Evaluation: 01/11/17 Time of Evaluation: 01:00 - Subjective Subjective: dictated Objective - Vital Signs/Intake and Output Vital Signs (last 24 hours): Temp Pulse Resp BP Pulse Ox 98.3 F 74 20 162/71 H 96 01/11/17 15:00 01/11/17 15:00 01/11/17 15:00 01/11/17 15:00 01/11/17 15:00 Intake and Output: 01/11/17 01/11/17 06:59 18:59 Intake Total 1800 1130 Output Total 3500 4800 Balance -1700 -3670 - Medications Medications: Current Medications Alprazolam (Xanax) 1 mg PO TID PRN PRN Reason: Anxiety Last Admin: 01/11/17 08:07 Dose: 1 mg Aspirin (Ecotrin) 81 mg PO DAILY [facility] Last Admin: 01/11/17 10:10 Dose: 81 mg Clopidogrel Bisulfate (Plavix) 75 mg PO DAILY [facility] Last Admin: 01/11/17 10:10 Dose: 75 mg Docusate Sodium (Colace) 100 mg PO DAILY [facility] Last Admin: 01/11/17 10:10 Dose: Not Given Fluoxetine HCl (Prozac) 40 mg PO DAILY [facility] Last Admin: 01/11/17 10:09 Dose: 40 mg Gabapentin (Neurontin) 100 mg PO TID [facility] Last Admin: 01/11/17 17:28 Dose: 100 mg Heparin Sodium (Porcine) (Heparin) 5,000 units SC Q12 [facility] Last Admin: 01/11/17 10:10 Dose: 5,000 units Aztreonam 2 gm/ Dextrose 100 mls @ 200 mls/hr IVPB Q8H [facility] Last Admin: 01/11/17 17:30 Dose: 200 mls/hr Sodium Chloride (Sodium Chloride 0.9%) 1,000 mls @ 80 mls/hr IV .[id number] [facility] Last Admin: 01/11/17 14:30 Dose: 80 mls/hr Insulin Aspart (Novolog) 10 unit SC TIDAC [facility] Last Admin: 01/11/17 17:28 Dose: 10 unit Insulin Glargine (Lantus) 50 unit SC HS [facility] Insulin Human Regular (Novolin R) 0 unit SC ACHS [facility] PRN Reason: Protocol Last Admin: 01/11/17 17:28 Dose: 3 unit Losartan Potassium (Cozaar) 100 mg PO DAILY [facility] Last Admin: 01/11/17 10:10 Dose: 100 mg Ondansetron HCl (Zofran Inj) 4 mg IVP Q6 PRN PRN Reason: Nausea/Vomiting Last Admin: 01/09/17 10:30 Dose: 4 mg Rosuvastatin Calcium (Crestor) 10 mg PO HS [facility] Last Admin: 01/10/17 21:25 Dose: 10 mg Trazodone HCl (Desyrel) 50 mg PO HS [facility] Last Admin: 01/10/17 21:25 Dose: 50 mg - Labs Labs: 01/11/17 09:06 01/11/17 09:06 PT 11.5 SECONDS (9.7-12.2) 01/09/17 11:34 INR 1.0 01/09/17 11:34 APTT 26 SECONDS (21-34) 01/09/17 11:34
[2017-01-11] MEDS: (Lantus) Insulin Glargine, Recombinant SC SCH (21:38)
[2017-01-11 23:14] LABS: RBC URINE 1 /hpf (0-3); URINE BACTERIA RARE (<OCC); URINE BILIRUBIN NEGATIVE (NEGATIVE); URINE BLOOD NEGATIVE (NEGATIVE); URINE COLOR Colorless (YELLOW); URINE GLUCOSE (UA) 1+ mg/dL (Normal); URINE KETONE NEGATIVE (NEGATIVE); URINE PROTEIN 1+ mg/dL (NEGATIVE); URINE UROBILINOGEN NORMAL mg/dL (0.2-1.0); WBC URINE 10 /hpf (0-5)
[2017-01-11 23:15] LABS: URINE LEUKOCYTE ESTERASE 1+ Leu/uL (Negative)
[2017-01-12] MEDS: Aztreonam 2 GM in Dextrose 5% In Water 100 ML IVPB SCH ×3 (02:17→17:29)
[2017-01-12 07:22] LABS: BASO % 0.6 % (0.0-2.0); EOS # 0.3 K/uL (0.0-0.7); EOS % 4.3 % (0.0-4.0); HEMATOCRIT 34.1 % (34.0-47.0); LYMPH # 1.1 K/uL (1.0-4.3); LYMPH % 15.1 % (20.0-40.0); MEAN CELL VOLUME 91.2 fL (81.0-99.0); MEAN CORPUSCULAR HEMOGLOBIN 31.2 pg (27.0-31.0); MEAN CORPUSCULAR HGB CONC 34.2 g/dL (33.0-37.0); MEAN PLATELET VOLUME 8.2 fL (7.2-11.7); MONO # 1.3 K/uL (0.0-0.8); MONO % 18.3 % (0.0-10.0); NRBC % 0.1 % (0.0-2.0); RED CELL DISTRIBUTION WIDTH 12.7 % (11.5-14.5); WHITE BLOOD COUNT 7.3 K/uL (4.8-10.8)
[2017-01-12 07:28] LABS: CHLORIDE 101 mmol/L (98-107); POTASSIUM 3.8 mmol/L (3.6-5.2); SODIUM 134 mmol/L (132-148)
[2017-01-12 07:30] LABS: GFR AFRICAN-AMERICAN > 60
[2017-01-12 07:31] LABS: ALKALINE PHOSPHATASE 67 U/L (38-126); AST/SGOT 12 U/L (14-36); BILIRUBIN,TOTAL 0.5 mg/dL (0.2-1.3); CARBON DIOXIDE 24 mmol/L (22-30); TOTAL PROTEIN 6.2 g/dL (6.3-8.3)
[2017-01-12 07:32] LABS: ALT/SGPT 21 U/L (9-52); BLOOD UREA NITROGEN 20 mg/dL (7-17); CALCIUM 8.2 mg/dl (8.6-10.4); GLUCOSE,RANDOM 136 mg/dL (65-105); MAGNESIUM 1.7 mg/dL (1.6-2.3); PHOSPHOROUS 3.6 mg/dL (2.5-4.5)
[2017-01-12] MEDS: (Novolin R) Insulin Human Regular 100 units/ml vial SC SCH ×4 (08:02→21:23)
[2017-01-12] MEDS: (Novolog) Insulin Aspart, Recombinant 100 u/ml 10 ml vial SC SCH ×3 (08:03→17:24)
--- NOTE | 2017-01-12 10:02 | PN ---
DATE: SUBJECTIVE: The patient was complaining of some groin rash and itching. Otherwise, she was feeling a little better. She ate little better today. She does state she is incontinent of urine. She has a Bennett catheter at this time. PHYSICAL EXAMINATION: VITAL SIGNS: T-max is 98.3, pulse is 74, blood pressure 162/71, and respirations are 20. HEENT: Head is atraumatic, normocephalic. She is obese. NECK: Supple. LUNGS: Clear. No crackles or rales present. HEART: S1 and S2 is regular. ABDOMEN: Soft, nontender and flabby. EXTREMITIES: Have edema present on the ankles. LABORATORY DATA: White count is 8.3, hemoglobin 11.2, hematocrit 33.3, platelet count is 192. Sodium is 127, potassium 4.3, chlorides are 98, CO2 is 21. BUN is 18, creatinine 0.9. Micro; there were blood cultures, which is positive for E. coli, so she has septicemia secondary to E. coli and E. coli is sensitive to Azactam and that is why she is on and the other set was negative. We will do a CAT scan of the abdomen and pelvis to make sure there is no obstruction. It was actually done the day before. The CAT scan shows mild cystitis versus under distention correlate with the urinalysis, diverticulosis without evidence of diverticulitis, mild perinephric stranding. Incidental acute findings as described above. There is no obstruction, but there is perinephric stranding and she is diabetic, so she will need a good control of the diabetes. We will continue with Azactam and repeat blood and urine cultures tomorrow and also she needs to get an echo done if not done on this admission. We will follow. Nikky Kumar MD
--- NOTE | 2017-01-12 10:02 | CP.PCM.PN ---
<NardaDuane R - Last Filed: 01/12/17 18:25> Subjective - Date & Time of Evaluation Date of Evaluation: 01/12/17 Time of Evaluation: 10:10 - Subjective Subjective: No acute events overnight. High blood sugar 2 nights ago. Patient was seen and examined this AM. Patient stated she is incontinent, she had a patel collecting normal appearing urine. She denied any distress. She understood she needed a PICC line for abx administration. She denied chest pain, shortness of breath, abdominal pain, fever, chills. Objective - Vital Signs/Intake and Output Vital Signs (last 24 hours): Temp Pulse Resp BP Pulse Ox 98.8 F 72 20 149/83 97 01/12/17 07:37 01/12/17 07:37 01/12/17 07:37 01/12/17 07:37 01/12/17 07:37 Intake and Output: 01/12/17 01/12/17 06:59 18:59 Intake Total 1040 640 Output Total 3200 2000 Balance -2160 -1360 - Medications Medications: Current Medications Acetaminophen (Tylenol 325mg Tab) 650 mg PO Q6 PRN PRN Reason: Pain, moderate (4-7) Alprazolam (Xanax) 1 mg PO TID PRN PRN Reason: Anxiety Last Admin: 01/11/17 21:46 Dose: 1 mg Aspirin (Ecotrin) 81 mg PO DAILY [facility] Last Admin: 01/11/17 10:10 Dose: 81 mg Clopidogrel Bisulfate (Plavix) 75 mg PO DAILY [facility] Last Admin: 01/11/17 10:10 Dose: 75 mg Clotrimazole (Lotrimin 1%) 1 gm TOP BID [facility] Docusate Sodium (Colace) 100 mg PO DAILY [facility] Last Admin: 01/11/17 10:10 Dose: Not Given Fluoxetine HCl (Prozac) 40 mg PO DAILY [facility] Last Admin: 01/11/17 10:09 Dose: 40 mg Gabapentin (Neurontin) 100 mg PO TID [facility] Last Admin: 01/11/17 17:28 Dose: 100 mg Heparin Sodium (Porcine) (Heparin) 5,000 units SC Q12 [facility] Last Admin: 01/11/17 21:38 Dose: 5,000 units Aztreonam 2 gm/ Dextrose 100 mls @ 200 mls/hr IVPB Q8H [facility] Last Admin: 01/12/17 02:17 Dose: 200 mls/hr Sodium Chloride (Sodium Chloride 0.9%) 1,000 mls @ 80 mls/hr IV .[id number] [facility] Last Admin: 01/11/17 14:30 Dose: 80 mls/hr Insulin Aspart (Novolog) 10 unit SC TIDAC [facility] Last Admin: 01/12/17 08:03 Dose: 10 unit Insulin Glargine (Lantus) 50 unit SC HS [facility] Last Admin: 01/11/17 21:38 Dose: 50 units Insulin Human Regular (Novolin R) 0 unit SC ACHS [facility] PRN Reason: Protocol Last Admin: 01/12/17 08:02 Dose: 1 unit Losartan Potassium (Cozaar) 100 mg PO DAILY [facility] Last Admin: 01/11/17 10:10 Dose: 100 mg Ondansetron HCl (Zofran Inj) 4 mg IVP Q6 PRN PRN Reason: Nausea/Vomiting Last Admin: 01/09/17 10:30 Dose: 4 mg Rosuvastatin Calcium (Crestor) 10 mg PO HS [facility] Last Admin: 01/11/17 21:37 Dose: 10 mg Trazodone HCl (Desyrel) 50 mg PO [facility] Last Admin: 01/11/17 21:37 Dose: 50 mg - Labs Labs: 01/12/17 07:02 01/12/17 07:02 PT 11.5 SECONDS (9.7-12.2) 01/09/17 11:34 INR 1.0 01/09/17 11:34 APTT 26 SECONDS (21-34) 01/09/17 11:34 - Additional Findings Additional findings: - Constitutional Appears: Non-toxic, No Acute Distress, morbidly obese - Head Exam Head Exam: ATRAUMATIC, NORMAL INSPECTION, NORMOCEPHALIC - Eye Exam Eye Exam: EOMI - ENT Exam ENT Exam: Mucous Membranes Moist - Neck Exam Neck Exam: Full ROM, Normal Inspection - Respiratory Exam Respiratory Exam: NORMAL BREATHING PATTERN. absent: Respiratory Distress - Cardiovascular Exam Cardiovascular Exam: +S1, +S2 - GI/Abdominal Exam GI & Abdominal Exam: Soft, Normal Bowel Sounds. 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 Coli (11/14) Blood culture 01/09 (+) for E. Coli - Previous admission Blood culture (+) for Coagulase negative S. Aureus (11/18) Meds: Aztreonam 2g IVPB Q8H (start date 01/09/2017) Imaging: CXR: NAD Type two diabetes mellitus, uncontrolled Patient admits non-compliance for last several days HgbA1C 01/09/17: 8.6 HgA1C 09/17/16: 12.4 Accuchecks Diabetic diet Meds: ISS (high scale) Lantus 50U SC HS (increased from 30U) Novalog 10U TIDAC Neurontin 100 mg PO TID History of CAD Hx of cardiac stent placement (2015) Meds: Plavix 75 mg PO daily ASA 81mg PO daily Crestor 10mg PO HS Imaging: ECHO (01/10/17): EF 70%; mild left ventricular hypertrophy. Moderate left ventricular diastolic dysfunction. Left atrium is moderately dilated. Mild tricuspid regurgitation. ECHO (09/16/16): EF 50%; the left ventricle is normal size. There is normal left ventricular wall thickness. Left ventricle is boderline. There is normal LV segmental wall motion. Transmitral doppler flow pattern is Grade I-abnormal relaxation pattern. Mitral regurgitation is mild. CHF (congestive heart failure), NYHA class I mild diastolic CHF preload dependent HTN Initially hypertensive, Well controlled Hold Home Norvasc due to peripheral edema Con't home med Losartan 100mg PO daily Abnormal UDS Positive for Benzodiazepines Urinary Incontinence Patient admits wearing diapers at home Insert patel Depression/ anxiety Xanax 1 mg PO TID PRN Prozac 40 mg PO daily Trazodone 50 mg PO HS LE pain and edema Non-pitting Compression stockings History of falls Pt denies fall [place] [facility] [place] Head (01/09/17): 1. No intracranial hemorrhage. 2. Nonspecific white matter changes (see full report) Prophylactic Pepcid 20 mg PO BID Heparin 5000u Q12H PT/OT Con't home med docusate 100mg PO QD <Vijay Tompkins H - Last Filed: 01/13/17 09:30> Objective - Vital Signs/Intake and Output Vital Signs (last 24 hours): Temp Pulse Resp BP Pulse Ox 98.5 F 77 20 163/74 H 97 01/13/17 08:00 01/13/17 08:00 01/13/17 08:00 01/13/17 08:00 01/13/17 08:00 Intake and Output: 01/13/17 01/13/17 06:59 18:59 Intake Total 2100 Output Total 3200 Balance -1100 - Medications Medications: Current Medications Acetaminophen (Tylenol 325mg Tab) 650 mg PO Q6 PRN PRN Reason: Pain, moderate (4-7) Last Admin: 01/12/17 10:10 Dose: 650 mg Alprazolam (Xanax) 1 mg PO TID PRN PRN Reason: Anxiety Last Admin: 01/12/17 17:27 Dose: 1 mg Aspirin (Ecotrin) 81 mg PO DAILY [facility] Last Admin: 01/12/17 10:08 Dose: 81 mg Clopidogrel Bisulfate (Plavix) 75 mg PO DAILY [facility] Last Admin: 01/12/17 10:07 Dose: 75 mg Clotrimazole (Lotrimin 1%) 1 gm TOP BID [facility] Last Admin: 01/12/17 18:35 Dose: 1 % Docusate Sodium (Colace) 100 mg PO DAILY [facility] Last Admin: 01/12/17 10:07 Dose: 100 mg Fluoxetine HCl (Prozac) 40 mg PO DAILY [facility] Last Admin: 01/12/17 10:10 Dose: 40 mg Gabapentin (Neurontin) 100 mg PO TID [facility] Last Admin: 01/12/17 17:23 Dose: 100 mg Heparin Sodium (Porcine) (Heparin) 5,000 units SC Q12 [facility] Last Admin: 01/12/17 21:11 Dose: 5,000 units Aztreonam 2 gm/ Dextrose 100 mls @ 200 mls/hr IVPB Q8H [facility] Last Admin: 01/13/17 03:00 Dose: 200 mls/hr Sodium Chloride (Sodium Chloride 0.9%) 1,000 mls @ 80 mls/hr IV .[id number] [facility] Last Admin: 01/13/17 06:00 Dose: 80 mls/hr Insulin Aspart (Novolog) 10 unit SC TIDAC [facility] Last Admin: 01/13/17 08:14 Dose: 10 unit Insulin Glargine (Lantus) 50 unit SC HS [facility] Last Admin: 01/12/17 21:12 Dose: 50 units Insulin Human Regular (Novolin R) 0 unit SC ACHS [facility] PRN Reason: Protocol Last Admin: 01/13/17 08:14 Dose: 2 unit Losartan Potassium (Cozaar) 100 mg PO DAILY [facility] Last Admin: 01/12/17 10:08 Dose: 100 mg Ondansetron HCl (Zofran Inj) 4 mg IVP Q6 PRN PRN Reason: Nausea/Vomiting Last Admin: 01/09/17 10:30 Dose: 4 mg Rosuvastatin Calcium (Crestor) 10 mg PO HS [facility] Last Admin: 01/12/17 21:11 Dose: 10 mg Trazodone HCl (Desyrel) 50 mg PO [facility] Last Admin: 01/12/17 21:11 Dose: 50 mg - Labs Labs: 01/13/17 07:32 01/13/17 07:32 PT 11.5 SECONDS (9.7-12.2) 01/09/17 11:34 INR 1.0 01/09/17 11:34 APTT 26 SECONDS (21-34) 01/09/17 11:34 Attending/Attestation - Attestation I have personally seen and examined this patient.: Yes I have fully participated in the care of the patient.: Yes I have reviewed all pertinent clinical information, including history, physical exam and plan: Yes Notes (Text): 01/13/17 09:30 Medical Attending: Patient was seen and examined by me, agrees the above note by the medical interpreter. As is my first time meeting patient so monitor reviewed previous notes, discussed with the medical staff and also discussed with the patient as well. She is currently receiving IV aztreonam for sepsis. The source of sepsis appears to be urinary tract infection. The microbiology grew out Escherichia coli in both her blood as well as the urine. There is been of repeat blood cultures it's currently negative for the past 24 hrs Continue with IV antibiotics, it appears that the patient will probably have to go to subacute rehabilitation at some point. From what I understand she is not able to walk and is mostly wheelchair-bound thank you Vijay Tompkins
[2017-01-12] MEDS: Clotrimazole 1% Cream(30 gm) TOP SCH ×2 (10:08→18:35)
[2017-01-12] MEDS: Sodium Chloride 0.9% 1,000 ML IV SCH ×2 (14:40→14:47)
--- NOTE | 2017-01-12 16:04 | RAD ---
HISTORY: verify right PICC COMPARISON: 01/08/2017 FINDINGS: LUNGS: Ill-defined opacity at right lung base may reflect infiltrate or atelectasis. No other abnormal opacity elsewhere. PLEURA: No significant pleural effusion identified, no pneumothorax apparent. CARDIOVASCULAR: Normal heart size. No congestive change. New right PICC catheter terminates in the superior vena cava just above the level of the cavoatrial junction. OSSEOUS STRUCTURES: No significant abnormalities. VISUALIZED UPPER ABDOMEN: Normal. OTHER FINDINGS: None. IMPRESSION: New right PICC catheter terminates above the cavoatrial junction. Ill-defined opacity at right base. Followup to rule out pneumonia. No pneumothorax.
[2017-01-12] MEDS: (Lantus) Insulin Glargine, Recombinant SC SCH (21:12)
[2017-01-13] MEDS: Aztreonam 2 GM in Dextrose 5% In Water 100 ML IVPB SCH ×3 (03:00→17:45)
[2017-01-13] MEDS: Sodium Chloride 0.9% 1,000 ML IV SCH ×3 (03:45→21:39)
[2017-01-13 07:51] LABS: BASO # 0.1 K/uL (0.0-0.2); EOS # 0.4 K/uL (0.0-0.7); EOS % 6.5 % (0.0-4.0); HEMATOCRIT 33.4 % (34.0-47.0); LYMPH # 1.1 K/uL (1.0-4.3); LYMPH % 17.7 % (20.0-40.0); MEAN CELL VOLUME 92.3 fL (81.0-99.0); MEAN CORPUSCULAR HEMOGLOBIN 31.5 pg (27.0-31.0); MEAN CORPUSCULAR HGB CONC 34.1 g/dL (33.0-37.0); MEAN PLATELET VOLUME 8.2 fL (7.2-11.7); MONO # 1.3 K/uL (0.0-0.8); MONO % 20.5 % (0.0-10.0); PLATELET COUNT 227 K/uL (130-400); RED CELL DISTRIBUTION WIDTH 12.6 % (11.5-14.5); WHITE BLOOD COUNT 6.3 K/uL (4.8-10.8)
[2017-01-13 07:52] LABS: POTASSIUM 4.1 mmol/L (3.6-5.2)
[2017-01-13 07:54] LABS: BILIRUBIN,TOTAL 0.5 mg/dL (0.2-1.3)
[2017-01-13 07:55] LABS: MAGNESIUM 1.7 mg/dL (1.6-2.3); PHOSPHOROUS 3.8 mg/dL (2.5-4.5)
[2017-01-13] MEDS: (Novolin R) Insulin Human Regular 100 units/ml vial SC SCH ×4 (08:14→21:43)
[2017-01-13] MEDS: (Novolog) Insulin Aspart, Recombinant 100 u/ml 10 ml vial SC SCH ×3 (08:14→17:15)
[2017-01-13 08:41] LABS: TOTAL CELLS COUNTED 100
[2017-01-13 09:03] LABS: NEUTROPHIL 56 % (50-75)
[2017-01-13 09:04] LABS: EOSINOPHIL 6 % (0-4)
[2017-01-13] MEDS: Clotrimazole 1% Cream(30 gm) TOP SCH ×2 (10:04→17:47)
--- NOTE | 2017-01-13 11:04 | CARD ---
APPROVED REPORT EKG Measurement Heart [id number] OR [id number] <Conclusion> Normal sinus rhythm Possible Left atrial enlargement Borderline ECG
--- NOTE | 2017-01-13 13:45 | CP.PCM.PN ---
<Duane Laboy - Last Filed: 01/13/17 14:13> Subjective - Date & Time of Evaluation Date of Evaluation: 01/13/17 Time of Evaluation: 13:44 - Subjective Subjective: PGY-[address] Tompkins. No acute events overnight noted. Patient seen and examined sitting in chair by bed. She stated she didn't feel well like her blood sugar was low. Her blood sugar was checked while I was there and it was 250. She complained of feeling dizzy and her feet being cold. She denied shortness of breath, cough, chest pain , fever, diarrhea, nausea. Objective - Vital Signs/Intake and Output Vital Signs (last 24 hours): Temp Pulse Resp BP Pulse Ox 98.5 F 77 20 163/74 H 97 01/13/17 08:00 01/13/17 08:00 01/13/17 08:00 01/13/17 08:00 01/13/17 08:00 Intake and Output: 01/13/17 01/13/17 06:59 18:59 Intake Total 2100 Output Total 3200 Balance -1100 - Medications Medications: Current Medications Acetaminophen (Tylenol 325mg Tab) 650 mg PO Q6 PRN PRN Reason: Pain, moderate (4-7) Last Admin: 01/12/17 10:10 Dose: 650 mg Alprazolam (Xanax) 1 mg PO TID PRN PRN Reason: Anxiety Last Admin: 01/13/17 10:14 Dose: 1 mg Aspirin (Ecotrin) 81 mg PO DAILY [facility] Last Admin: 01/13/17 10:01 Dose: 81 mg Clopidogrel Bisulfate (Plavix) 75 mg PO DAILY [facility] Last Admin: 01/13/17 10:01 Dose: 75 mg Clotrimazole (Lotrimin 1%) 1 gm TOP BID [facility] Last Admin: 01/13/17 10:04 Dose: 1 % Docusate Sodium (Colace) 100 mg PO DAILY [facility] Last Admin: 01/13/17 10:05 Dose: Not Given Fluoxetine HCl (Prozac) 40 mg PO DAILY [facility] Last Admin: 01/13/17 10:01 Dose: 40 mg Gabapentin (Neurontin) 100 mg PO TID [facility] Last Admin: 01/13/17 10:01 Dose: 100 mg Heparin Sodium (Porcine) (Heparin) 5,000 units SC Q12 [facility] Last Admin: 01/13/17 10:02 Dose: 5,000 units Aztreonam 2 gm/ Dextrose 100 mls @ 200 mls/hr IVPB Q8H [facility] Last Admin: 01/13/17 10:01 Dose: 200 mls/hr Sodium Chloride (Sodium Chloride 0.9%) 1,000 mls @ 80 mls/hr IV .[id number] [facility] Last Admin: 01/13/17 06:00 Dose: 80 mls/hr Insulin Aspart (Novolog) 10 unit SC TIDAC [facility] Last Admin: 01/13/17 12:15 Dose: 10 unit Insulin Glargine (Lantus) 50 unit SC HS [facility] Last Admin: 01/12/17 21:12 Dose: 50 units Insulin Human Regular (Novolin R) 0 unit SC ACHS [facility] PRN Reason: Protocol Last Admin: 01/13/17 12:14 Dose: 2 unit Losartan Potassium (Cozaar) 100 mg PO DAILY [facility] Last Admin: 01/13/17 10:01 Dose: 100 mg Ondansetron HCl (Zofran Inj) 4 mg IVP Q6 PRN PRN Reason: Nausea/Vomiting Last Admin: 01/13/17 10:14 Dose: 4 mg Rosuvastatin Calcium (Crestor) 10 mg PO HS [facility] Last Admin: 01/12/17 21:11 Dose: 10 mg Trazodone HCl (Desyrel) 50 mg PO HS [facility] Last Admin: 01/12/17 21:11 Dose: 50 mg - Labs Labs: 01/13/17 07:32 01/13/17 07:32 PT 11.5 SECONDS (9.7-12.2) 01/09/17 11:34 INR 1.0 01/09/17 11:34 APTT 26 SECONDS (21-34) 01/09/17 11:34 - Additional Findings Additional findings: - Constitutional Appears: Non-toxic, No Acute Distress, morbidly obese - Head Exam Head Exam: ATRAUMATIC, NORMAL INSPECTION, NORMOCEPHALIC - Eye Exam Eye Exam: EOMI - ENT Exam ENT Exam: Mucous Membranes Moist - Neck Exam Neck Exam: Full ROM, Normal Inspection - Respiratory Exam Respiratory Exam: NORMAL BREATHING PATTERN. absent: Respiratory Distress - Cardiovascular Exam Cardiovascular Exam: +S1, +S2 - GI/Abdominal Exam GI & Abdominal Exam: Soft, Normal Bowel Sounds. 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 Coli (11/14) Blood culture 01/09 (+) for E. Coli - Previous admission Blood culture (+) for Coagulase negative S. Aureus (11/18) Meds: Aztreonam 2g IVPB Q8H (start date 01/09/2017) Imaging: CXR: NAD Type two diabetes mellitus, uncontrolled Patient admits non-compliance for last several days HgbA1C 01/09/17: 8.6 HgA1C 09/17/16: 12.4 Accuchecks Diabetic diet Meds: ISS (high scale) Lantus 50U SC HS (increased from 30U) Novalog 10U TIDAC Neurontin 100 mg PO TID History of CAD Hx of cardiac stent placement (2015) Meds: Plavix 75 mg PO daily ASA 81mg PO daily Crestor 10mg PO HS Imaging: ECHO (01/10/17): EF 70%; mild left ventricular hypertrophy. Moderate left ventricular diastolic dysfunction. Left atrium is moderately dilated. Mild tricuspid regurgitation. ECHO (09/16/16): EF 50%; the left ventricle is normal size. There is normal left ventricular wall thickness. Left ventricle is boderline. There is normal LV segmental wall motion. Transmitral doppler flow pattern is Grade I-abnormal relaxation pattern. Mitral regurgitation is mild. CHF (congestive heart failure), NYHA class I mild diastolic CHF preload dependent HTN Initially hypertensive, Well controlled Hold Home Norvasc due to peripheral edema Con't home med Losartan 100mg PO daily Abnormal UDS Positive for Benzodiazepines Urinary Incontinence Patient admits wearing diapers at home Insert patel Depression/ anxiety Xanax 1 mg PO TID PRN Prozac 40 mg PO daily Trazodone 50 mg PO HS LE pain and edema Non-pitting Compression stockings History of falls Pt denies fall since discharge from [facility] [place] in [place] CT Head (01/09/17): 1. No intracranial hemorrhage. 2. Nonspecific white matter changes (see full report) Prophylactic Pepcid 20 mg PO BID Heparin 5000u Q12H PT/OT Con't home med docusate 100mg PO QD DISPOSITION: Patient will go to rehab upon discharge and will need abx for 5 additional days once discharged. Discharge tentatively scheduled for 01/14/17. <Vijay Tompkins H - Last Filed: 01/13/17 15:50> Objective - Vital Signs/Intake and Output Vital Signs (last 24 hours): Temp Pulse Resp BP Pulse Ox 98.5 F 77 20 163/74 H 97 01/13/17 08:00 01/13/17 08:00 01/13/17 08:00 01/13/17 08:00 01/13/17 08:00 Intake and Output: 01/13/17 01/13/17 06:59 18:59 Intake Total 2100 1000 Output Total 3200 2000 Balance -1100 -1000 - Medications Medications: Current Medications Acetaminophen (Tylenol 325mg Tab) 650 mg PO Q6 PRN PRN Reason: Pain, moderate (4-7) Last Admin: 01/12/17 10:10 Dose: 650 mg Alprazolam (Xanax) 1 mg PO TID PRN PRN Reason: Anxiety Last Admin: 01/13/17 10:14 Dose: 1 mg Aspirin (Ecotrin) 81 mg PO DAILY [facility] Last Admin: 01/13/17 10:01 Dose: 81 mg Clopidogrel Bisulfate (Plavix) 75 mg PO DAILY [facility] Last Admin: 01/13/17 10:01 Dose: 75 mg Clotrimazole (Lotrimin 1%) 1 gm TOP BID [facility] Last Admin: 01/13/17 10:04 Dose: 1 % Docusate Sodium (Colace) 100 mg PO DAILY [facility] Last Admin: 01/13/17 10:05 Dose: Not Given Fluoxetine HCl (Prozac) 40 mg PO DAILY [facility] Last Admin: 01/13/17 10:01 Dose: 40 mg Gabapentin (Neurontin) 100 mg PO TID [facility] Last Admin: 01/13/17 13:59 Dose: 100 mg Heparin Sodium (Porcine) (Heparin) 5,000 units SC Q12 [facility] Last Admin: 01/13/17 10:02 Dose: 5,000 units Aztreonam 2 gm/ Dextrose 100 mls @ 200 mls/hr IVPB Q8H [facility] Last Admin: 01/13/17 10:01 Dose: 200 mls/hr Sodium Chloride (Sodium Chloride 0.9%) 1,000 mls @ 70 mls/hr IV .[id number] [facility] Insulin Aspart (Novolog) 10 unit SC TIDAC [facility] Last Admin: 01/13/17 12:15 Dose: 10 unit Insulin Glargine (Lantus) 50 unit SC [facility] Last Admin: 01/12/17 21:12 Dose: 50 units Insulin Human Regular (Novolin R) 0 unit SC ACHS [facility] PRN Reason: Protocol Last Admin: 01/13/17 12:14 Dose: 2 unit Losartan Potassium (Cozaar) 100 mg PO DAILY [facility] Last Admin: 01/13/17 10:01 Dose: 100 mg Ondansetron HCl (Zofran Inj) 4 mg IVP Q6 PRN PRN Reason: Nausea/Vomiting Last Admin: 01/13/17 10:14 Dose: 4 mg Rosuvastatin Calcium (Crestor) 10 mg PO [facility] Last Admin: 01/12/17 21:11 Dose: 10 mg Trazodone HCl (Desyrel) 50 mg PO [facility] Last Admin: 01/12/17 21:11 Dose: 50 mg - Labs Labs: 01/13/17 07:32 01/13/17 07:32 PT 11.5 SECONDS (9.7-12.2) 01/09/17 11:34 INR 1.0 01/09/17 11:34 APTT 26 SECONDS (21-34) 01/09/17 11:34 Attending/Attestation - Attestation I have personally seen and examined this patient.: Yes I have fully participated in the care of the patient.: Yes I have reviewed all pertinent clinical information, including history, physical exam and plan: Yes Notes (Text): 01/13/17 15:50 Medical attending: Patient was seen and examined by me, agrees the above note by medical records secretary. The patient yesterday had a PICC line placement she is very difficult to start IV line on. She is still being treated with IV aztreonam. As mentioned previously the patient had positive Escherichia coli in both the urine as well as the blood stream. It is sensitive to many things. Patient does have allergy to penicillin so aztreonam was used instead Since then the repeat blood cultures are negative for the past 24 hours. Her white blood cell count is much better. She is afebrile as well. The patient explained to me that at her baseline she is mostly in the wheelchair. She has difficulty due to long-standing weakness. Because she's been here for some time now she is also weak. She explains to us that she's been to [facility] before is wondering if she can go there again. I spoke with the caseworkers were try to get her to subacute rehabilitation on possibly tomorrow. She'll could continue with IV antibiotics while getting rehab thank you Vijay Tompkins
[2017-01-13] MEDS: (Lantus) Insulin Glargine, Recombinant SC SCH (21:42)
[2017-01-14] MEDS: Aztreonam 2 GM in Dextrose 5% In Water 100 ML IVPB SCH ×3 (01:48→17:53)
[2017-01-14] MEDS: Sodium Chloride 0.9% 1,000 ML IV SCH ×4 (05:34→20:00)
[2017-01-14 07:14] LABS: BASO # 0.1 K/uL (0.0-0.2); BASO % 0.9 % (0.0-2.0); EOS # 0.4 K/uL (0.0-0.7); EOS % 4.4 % (0.0-4.0); HEMATOCRIT 34.3 % (34.0-47.0); LYMPH # 1.1 K/uL (1.0-4.3); LYMPH % 12.6 % (20.0-40.0); MEAN CELL VOLUME 91.8 fL (81.0-99.0); MEAN CORPUSCULAR HEMOGLOBIN 31.4 pg (27.0-31.0); MEAN CORPUSCULAR HGB CONC 34.2 g/dL (33.0-37.0); MEAN PLATELET VOLUME 8.2 fL (7.2-11.7); MONO # 1.1 K/uL (0.0-0.8); MONO % 13.5 % (0.0-10.0); RED CELL DISTRIBUTION WIDTH 12.9 % (11.5-14.5); WHITE BLOOD COUNT 8.4 K/uL (4.8-10.8)
[2017-01-14 07:43] LABS: ALKALINE PHOSPHATASE 67 U/L (38-126); ALT/SGPT 22 U/L (9-52); AST/SGOT 17 U/L (14-36); BILIRUBIN,TOTAL 0.5 mg/dL (0.2-1.3); BLOOD UREA NITROGEN 22 mg/dL (7-17); CARBON DIOXIDE 24 mmol/L (22-30); CHLORIDE 100 mmol/L (98-107); GFR AFRICAN-AMERICAN > 60; GLUCOSE,RANDOM 191 mg/dL (65-105); POTASSIUM 4.1 mmol/L (3.6-5.2); SODIUM 133 mmol/L (132-148); TOTAL PROTEIN 6.2 g/dL (6.3-8.3)
[2017-01-14 07:50] LABS: ALB/GLOB RATIO 1.1 (1.0-2.1)
[2017-01-14] MEDS: (Novolog) Insulin Aspart, Recombinant 100 u/ml 10 ml vial SC SCH ×3 (08:23→17:51)
[2017-01-14] MEDS: (Novolin R) Insulin Human Regular 100 units/ml vial SC SCH ×4 (08:24→21:48)
--- NOTE | 2017-01-14 09:30 | CP.PCM.PN ---
<NardaDuane R - Last Filed: 01/14/17 11:19> Subjective - Date & Time of Evaluation Date of Evaluation: 01/14/17 Time of Evaluation: 09:07 - Subjective Subjective: PGY-[address] Tompkins. No acute events noted overnight. Patient was resting comfortably in bed watching TV, however patient was upset and crying about being in the hospital and being alone, she said she wanted to see her psychiatrist, Dr Sahu. Patel was in place. She reports feeling fatigued but has no other specific complaints. She feels better today compared to yesterday when she was feeling very dizzy. She denied chest pain, shortness of breath, abdominal pain, fever, chills, nausea, vomiting. Objective - Vital Signs/Intake and Output Vital Signs (last 24 hours): Temp Pulse Resp BP Pulse Ox 98 F 82 20 146/76 96 01/14/17 08:11 01/14/17 08:11 01/14/17 08:11 01/14/17 08:11 01/14/17 08:11 Intake and Output: 01/14/17 01/14/17 06:59 18:59 Intake Total 1555 Output Total 2500 Balance -945 - Medications Medications: Current Medications Acetaminophen (Tylenol 325mg Tab) 650 mg PO Q6 PRN PRN Reason: Pain, moderate (4-7) Last Admin: 01/14/17 06:24 Dose: 650 mg Alprazolam (Xanax) 1 mg PO TID PRN PRN Reason: Anxiety Last Admin: 01/13/17 21:31 Dose: 1 mg Aspirin (Ecotrin) 81 mg PO DAILY [facility] Last Admin: 01/13/17 10:01 Dose: 81 mg Clopidogrel Bisulfate (Plavix) 75 mg PO DAILY [facility] Last Admin: 01/13/17 10:01 Dose: 75 mg Clotrimazole (Lotrimin 1%) 1 gm TOP BID [facility] Last Admin: 01/13/17 17:47 Dose: 1 % Docusate Sodium (Colace) 100 mg PO DAILY [facility] Last Admin: 01/13/17 10:05 Dose: Not Given Fluoxetine HCl (Prozac) 40 mg PO DAILY [facility] Last Admin: 01/13/17 10:01 Dose: 40 mg Gabapentin (Neurontin) 100 mg PO TID [facility] Last Admin: 01/13/17 17:45 Dose: 100 mg Heparin Sodium (Porcine) (Heparin) 5,000 units SC Q12 [facility] Last Admin: 01/13/17 21:26 Dose: 5,000 units Aztreonam 2 gm/ Dextrose 100 mls @ 200 mls/hr IVPB Q8H [facility] Last Admin: 01/14/17 01:48 Dose: 200 mls/hr Sodium Chloride (Sodium Chloride 0.9%) 1,000 mls @ 70 mls/hr IV .[id number] [facility] Last Admin: 01/14/17 05:34 Dose: Not Given Insulin Aspart (Novolog) 10 unit SC TIDAC [facility] Last Admin: 01/14/17 08:23 Dose: 10 unit Insulin Glargine (Lantus) 50 unit SC [facility] Last Admin: 01/13/17 21:42 Dose: 50 units Insulin Human Regular (Novolin R) 0 unit SC ACHS [facility] PRN Reason: Protocol Last Admin: 01/14/17 08:24 Dose: 2 unit Losartan Potassium (Cozaar) 100 mg PO DAILY [facility] Last Admin: 01/13/17 10:01 Dose: 100 mg Ondansetron HCl (Zofran Inj) 4 mg IVP Q6 PRN PRN Reason: Nausea/Vomiting Last Admin: 01/13/17 10:14 Dose: 4 mg Rosuvastatin Calcium (Crestor) 10 mg PO [facility] Last Admin: 01/13/17 21:25 Dose: 10 mg Trazodone HCl (Desyrel) 50 mg PO [facility] Last Admin: 01/13/17 21:25 Dose: 50 mg - Labs Labs: 01/14/17 07:05 01/14/17 07:05 PT 11.5 SECONDS (9.7-12.2) 01/09/17 11:34 INR 1.0 01/09/17 11:34 APTT 26 SECONDS (21-34) 01/09/17 11:34 - Additional Findings Additional findings: - Constitutional Appears: Non-toxic, No Acute Distress, morbidly obese - Head Exam Head Exam: ATRAUMATIC, NORMAL INSPECTION, NORMOCEPHALIC - Eye Exam Eye Exam: EOMI - ENT Exam ENT Exam: Mucous Membranes Moist - Neck Exam Neck Exam: Full ROM, Normal Inspection - Respiratory Exam Respiratory Exam: NORMAL BREATHING PATTERN. absent: Respiratory Distress - Cardiovascular Exam Cardiovascular Exam: +S1, +S2 - GI/Abdominal Exam GI & Abdominal Exam: Soft, Normal Bowel Sounds. absent: Tenderness - Extremities Exam Extremities Exam: Full ROM, Normal Inspection, lower extremity weakness (wheel chair bound), 1+ pitting edema b/l - Back Exam Back Exam: NORMAL INSPECTION - Neurological Exam Neurological Exam: Alert, Awake, Oriented x3 - Psychiatric Exam Psychiatric exam: Normal Affect, Normal Mood - Skin Skin Exam: Dry, Intact, Normal Color, Warm Additional: Incontinent associated dermatitis on thighs bilaterally Assessment and Plan - Assessment and Plan (Free Text) Assessment: Urosepsis ID consulted, Dr Kumar Urology consulted, Dr Minor (recurrent UTIs) Criteria (HR >90, WBC >12) Source: UTI On admission: WBC 13.2, 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 Coli - Previous admission Blood culture (+) for Coagulase negative S. Aureus (11/18) Blood culture 01/12 shows no growth up to date Urine culture 01/09 (+) gram negative rods -Previous admission Urine culture (+) for E. Coli (11/14) Urine culture 01/11 (+) for Klebsiella pneumoniae that is ESBL (+) Contact Isolation started 01/14 Replaced Patel 01/14 Meds: Aztreonam 2g IVPB Q8H started 01/09 Meropenem 1g IVPB Q8H started 01/14 (first dose to be given under nursing supervision to monitor for allergic reaction) Imaging: CXR: NAD Type two diabetes mellitus, uncontrolled Patient admits non-compliance for last several days HgbA1C 01/09/17: 8.6 HgA1C 09/17/16: 12.4 Accuchecks Diabetic diet Meds: ISS (high scale) Lantus 50U SC HS (increased from 30U) Novalog 10U TIDAC Neurontin 100 mg PO TID History of CAD Hx of cardiac stent placement (2015) Meds: Plavix 75 mg PO daily ASA 81mg PO daily Crestor 10mg PO HS Imaging: ECHO (01/10/17): EF 70%; mild left ventricular hypertrophy. Moderate left ventricular diastolic dysfunction. Left atrium is moderately dilated. Mild tricuspid regurgitation. ECHO (09/16/16): EF 50%; the left ventricle is normal size. There is normal left ventricular wall thickness. Left ventricle is boderline. There is normal LV segmental wall motion. Transmitral doppler flow pattern is Grade I-abnormal relaxation pattern. Mitral regurgitation is mild. CHF (congestive heart failure), NYHA class I mild diastolic CHF preload dependent HTN Initially hypertensive, Well controlled Hold Home Norvasc due to peripheral edema Con't home med Losartan 100mg PO daily Abnormal UDS Positive for Benzodiazepines Urinary Incontinence Patient admits wearing diapers at home Insert patel Depression/ anxiety Psychiatry consulted, Dr Sahu Xanax 1 mg PO TID PRN Prozac 40 mg PO daily Trazodone 50 mg PO HS LE pain and edema Non-pitting Compression stockings History of falls Pt denies fall since discharge from [facility] [place] in [place] CT Head (01/09/17): 1. No intracranial hemorrhage. 2. Nonspecific white matter changes (see full report) Prophylactic Pepcid 20 mg PO BID Heparin 5000u Q12H PT/OT Con't home med docusate 100mg PO QD DISPOSITION: Patient will go to rehab upon discharge and will need abx for 5 additional days once discharged. Discharge tentatively scheduled for 01/14/17. <Vijay Tompkins H - Last Filed: 01/14/17 13:34> Objective - Vital Signs/Intake and Output Vital Signs (last 24 hours): Temp Pulse Resp BP Pulse Ox 98 F 82 20 150/84 96 01/14/17 08:11 01/14/17 11:32 01/14/17 08:11 01/14/17 11:32 01/14/17 11:32 Intake and Output: 01/14/17 01/14/17 06:59 18:59 Intake Total 1555 Output Total 2500 Balance -945 - Medications Medications: Current Medications Acetaminophen (Tylenol 325mg Tab) 650 mg PO Q6 PRN PRN Reason: Pain, moderate (4-7) Last Admin: 01/14/17 06:24 Dose: 650 mg Alprazolam (Xanax) 1 mg PO Q8H [facility] Last Admin: 01/14/17 12:07 Dose: Not Given Aspirin (Ecotrin) 81 mg PO DAILY [facility] Last Admin: 01/14/17 10:18 Dose: 81 mg Clopidogrel Bisulfate (Plavix) 75 mg PO DAILY [facility] Last Admin: 01/14/17 10:18 Dose: 75 mg Clotrimazole (Lotrimin 1%) 1 gm TOP BID [facility] Last Admin: 01/14/17 10:29 Dose: 1 % Docusate Sodium (Colace) 100 mg PO DAILY [facility] Last Admin: 01/14/17 10:18 Dose: Not Given Fluoxetine HCl (Prozac) 40 mg PO DAILY [facility] Last Admin: 01/14/17 10:21 Dose: 40 mg Gabapentin (Neurontin) 100 mg PO TID [facility] Last Admin: 01/14/17 10:18 Dose: 100 mg Heparin Sodium (Porcine) (Heparin) 5,000 units SC Q12 [facility] Last Admin: 01/14/17 10:18 Dose: 5,000 units Aztreonam 2 gm/ Dextrose 100 mls @ 200 mls/hr IVPB Q8H [facility] Last Admin: 01/14/17 11:30 Dose: 200 mls/hr Sodium Chloride (Sodium Chloride 0.9%) 1,000 mls @ 70 mls/hr IV .[id number] [facility] Last Admin: 01/14/17 05:34 Dose: Not Given Meropenem 1 gm/ Sodium (Chloride) 100 mls @ 100 mls/hr IVPB Q8 [facility] Last Admin: 01/14/17 10:18 Dose: 100 mls/hr Insulin Aspart (Novolog) 10 unit SC TIDAC [facility] Last Admin: 01/14/17 11:49 Dose: 10 unit Insulin Glargine (Lantus) 50 unit SC HS [facility] Last Admin: 01/13/17 21:42 Dose: 50 units Insulin Human Regular (Novolin R) 0 unit SC ACHS [facility] PRN Reason: Protocol Last Admin: 01/14/17 11:49 Dose: 3 unit Losartan Potassium (Cozaar) 100 mg PO DAILY [facility] Last Admin: 01/14/17 10:18 Dose: 100 mg Ondansetron HCl (Zofran Inj) 4 mg IVP Q6 PRN PRN Reason: Nausea/Vomiting Last Admin: 01/13/17 10:14 Dose: 4 mg Rosuvastatin Calcium (Crestor) 10 mg PO HS [facility] Last Admin: 01/13/17 21:25 Dose: 10 mg Trazodone HCl (Desyrel) 50 mg PO HS [facility] Last Admin: 01/13/17 21:25 Dose: 50 mg - Labs Labs: 01/14/17 07:05 01/14/17 07:05 PT 11.5 SECONDS (9.7-12.2) 01/09/17 11:34 INR 1.0 01/09/17 11:34 APTT 26 SECONDS (21-34) 01/09/17 11:34 Attending/Attestation - Attestation I have personally seen and examined this patient.: Yes I have fully participated in the care of the patient.: Yes I have reviewed all pertinent clinical information, including history, physical exam and plan: Yes Notes (Text): 01/14/17 13:34 Medical attending: Patient was seen and examined by me, agree with the above note by medical insurance clerk. The patient really wanted to be leaving the hospital however a urine culture was repeated since she initially had Escherichia coli, however at this new urine culture shows that she was positive for Klebsiella pneumonia that is positive for ESBL she was started on contact isolation. Infectious disease has advised us to have a urology consult due to these repeat UTIs. Additional antibiotics started as well. The patient was very sad and tearful. She tells me that she does want further procedures. He wanted to be seen by her own psychiatrist who does come to this hospital so we'll consult the person. Thank you very much, Vijay Tompkins
[2017-01-14] MEDS: Meropenem 1 GM in Sodium Chloride 0.9% 100 ML IVPB SCH ×3 (10:18→22:40)
[2017-01-14] MEDS: Clotrimazole 1% Cream(30 gm) TOP SCH ×2 (10:29→17:54)
--- NOTE | 2017-01-14 20:43 | CON ---
PSYCHIATRIC CONSULTATION DATE OF SERVICE: 01/14/2017 CHIEF COMPLAINT AND REASON FOR CONSULTATION: The patient is referred for evaluation by Dr. Moura for anxiety and depression. The patient is well known to me, she has been my patient for many years, and the patient is on multiple psych meds. HISTORY OF PRESENT ILLNESS: This is a case of a 71-year-old female with history of depression and anxiety. The patient lives alone. The patient came to the emergency room complaining of polyuria, polydipsia, and abdominal pain. The patient was diagnosed to have UTI. The patient was last seen by me a few weeks ago at [facility] when she was there for subacute rehab. The patient reports after she came home was having problems with her medical insurance. She lost her Medicaid and the patient has problems getting a homemaker. She also had problems with keeping her Life Alert. The patient reports that she has been falling and also she has not been taking her medications. Psych enamorado, the patient has been maintained on Xanax 1 mg 3 times a day, Trazodone 50 mg at bedtime, and also Prozac 40 mg daily. The patient states she has not been compliant with her meds and also the patient states she needs lots of assistance. The patient is considering now going to a group home but trying to put her cat for adoption. She said that she could not leave her house without making sure her cat is being adopted. The patient is now considering that she might eventually stay in a group home because [place] has [place] [facility] [place] this [place] and the patient is unable to maintain for long periods at home. She had been complaint with her medsin the hospital. The patient is still anxious, but through the years, the patient has been declining medically and losing her independence to stay independent at home. She reports she has been compliant with psych meds, still reports crying spells, feeling depressed. She said that if ever she goes to the group home, she wants her cat to be adopted first because she states that she could not function without her cat. Note, the patient ended up in the Psych Unit when her first cat . PAST PSYCHIATRIC HISTORY: Long history of recurrent depression and anxiety, has been on Xanax, Prozac, and trazodone. PAST MEDICAL HISTORY: History of debility, diabetes, hypertension, history of recurrent UTI. Her UA on admission showed UTI. The patient has been followed by Dr. Kumar. DRUG AND ALCOHOL HISTORY: Denies any. ALLERGIES: THE PATIENT IS ALLERGIC TO PENICILLIN. PSYCHOSOCIAL HISTORY: The patient lives alone. She is a . She lives alone. She has a pet cat. MEDICATIONS: List of current medication Includes aztreonam, Colace, Cozaar, Crestor, Desyrel 50 mg at bedtime, Lantus insulin, Lotrimin, Neurontin, Novolin, Plavix, Prozac 40 mg daily, Xanax 1 mg t.i.d. p.r.n., and Zofran. REVIEW OF SYSTEMS: GENERAL: The patient is feeling weak, but alert and oriented x 3, seen in her room. The patient is still anxious, tearful at times, but complaining of debility and difficulty walking. SKIN: No diaphoresis. HEENT: No headache. No dizziness. NECK: Supple. RESPIRATORY: No dyspnea. CARDIOVASCULAR: No chest pain. GASTROINTESTINAL: Appetite is fair. EXTREMITIES: Unsteady gait. GENITOURINARY: The patient has recurrent UTI and also incontinent off and on. MUSCULOSKELETAL: Feels weak. NEUROLOGIC: Alert and oriented x3. She is forgetful at times. PHYSICAL EXAMINATION: VITAL SIGNS: Temperature is 98, pulse is 82, blood pressure 150/84, respiration is 20, and oxygen saturation is 96%. MENTAL STATUS: Elderly female who looks today a little bit obese. The patient is about 232 pounds in weight and about 5 feet 3 inches in height. The patient is alert and oriented x3. Mood is chronically depressed, dysphoric, anxious. Affect is reactive. Speech spontaneous. Thought process coherent. Thought content, the patient is considering now having to put her cat for adoption before going to the group home. The patient realizes that she is having difficulty managing herself even with homemaker at home. No paranoia. No suicidal or homicidal ideation. Attention and memory seem to be fair. Insight and judgment fair. Impulse control is fair. LABORATORY DATA: On review of her labs, WBC is 8.4, creatinine is 0.9. Liver function tests are within normal limits; however, her UA showed signs and symptoms of urinary tract infection. The patient is currently on antibiotic. She had also a CAT scan of the head done on admission that showed no acute bleed. IMPRESSION: History of recurrent depression, anxiety, recurrent urinary tract infection, and debility. PLAN AND RECOMMENDATIONS: The patient is seen, meds reviewed, and discussed with the patient. We put her on to previous psych meds. Continue Prozac 40 mg daily, trazodone 50 at bedtime. We will change her Xanax to 1 mg q. 8 instead of 1 mg t.i.d. p.r.n. She was taking this in the group home and seems to do well. Also, the patient may need to go [place] [facility] [place], then transition for long-term care. She is hoping that her cat will be adopted. The patient states that she needs to have her cat adopted first before going to the group home and then also the patient needs to reinstate her Medicaid. Continue antibiotics as ordered. At this time, the patient has been medically cleared to go to the group home for subacute rehab. The patient has been on antibiotics and awaiting clearance from Dr. Kumar. For now, we will change her psych meds. We will follow up accordingly. Topher Sahu MD: 01/14/2017 12:15:25 MTDDean
[2017-01-14] MEDS: (Lantus) Insulin Glargine, Recombinant SC SCH (22:39)
--- NOTE | 2017-01-14 23:02 | CP.PCM.PN ---
Subjective - Date & Time of Evaluation Date of Evaluation: 01/14/17 Time of Evaluation: 05:00 - Subjective Subjective: dictated Objective - Vital Signs/Intake and Output Vital Signs (last 24 hours): Temp Pulse Resp BP Pulse Ox 98.7 F 76 20 120/68 95 01/14/17 15:00 01/14/17 15:00 01/14/17 15:00 01/14/17 15:00 01/14/17 15:00 Intake and Output: 01/14/17 01/15/17 18:59 06:59 Intake Total 1120 Output Total 1300 Balance -180 - Medications Medications: Current Medications Acetaminophen (Tylenol 325mg Tab) 650 mg PO Q6 PRN PRN Reason: Pain, moderate (4-7) Last Admin: 01/14/17 06:24 Dose: 650 mg Alprazolam (Xanax) 1 mg PO Q8H [facility] Last Admin: 01/14/17 19:35 Dose: 1 mg Aspirin (Ecotrin) 81 mg PO DAILY [facility] Last Admin: 01/14/17 10:18 Dose: 81 mg Clopidogrel Bisulfate (Plavix) 75 mg PO DAILY [facility] Last Admin: 01/14/17 10:18 Dose: 75 mg Clotrimazole (Lotrimin 1%) 1 gm TOP BID [facility] Last Admin: 01/14/17 17:54 Dose: 1 % Docusate Sodium (Colace) 100 mg PO DAILY [facility] Last Admin: 01/14/17 10:18 Dose: Not Given Fluoxetine HCl (Prozac) 40 mg PO DAILY [facility] Last Admin: 01/14/17 10:21 Dose: 40 mg Gabapentin (Neurontin) 100 mg PO TID [facility] Last Admin: 01/14/17 17:52 Dose: 100 mg Heparin Sodium (Porcine) (Heparin) 5,000 units SC Q12 [facility] Last Admin: 01/14/17 22:35 Dose: 5,000 units Sodium Chloride (Sodium Chloride 0.9%) 1,000 mls @ 70 mls/hr IV .[id number] [facility] Last Admin: 01/14/17 20:00 Dose: 70 mls/hr Meropenem 1 gm/ Sodium (Chloride) 100 mls @ 100 mls/hr IVPB Q8 [facility] Last Admin: 01/14/17 22:40 Dose: 100 mls/hr Insulin Aspart (Novolog) 10 unit SC TIDAC [facility] Last Admin: 01/14/17 17:51 Dose: 10 unit Insulin Glargine (Lantus) 50 unit SC HS [facility] Last Admin: 01/14/17 22:39 Dose: 50 units Insulin Human Regular (Novolin R) 0 unit SC ACHS [facility] PRN Reason: Protocol Last Admin: 01/14/17 21:48 Dose: Not Given Losartan Potassium (Cozaar) 100 mg PO DAILY [facility] Last Admin: 01/14/17 10:18 Dose: 100 mg Ondansetron HCl (Zofran Inj) 4 mg IVP Q6 PRN PRN Reason: Nausea/Vomiting Last Admin: 01/13/17 10:14 Dose: 4 mg Rosuvastatin Calcium (Crestor) 10 mg PO HS [facility] Last Admin: 01/14/17 22:35 Dose: 10 mg Trazodone HCl (Desyrel) 50 mg PO HS [facility] Last Admin: 01/14/17 22:35 Dose: 50 mg - Labs Labs: 01/14/17 07:05 01/14/17 07:05 PT 11.5 SECONDS (9.7-12.2) 01/09/17 11:34 INR 1.0 01/09/17 11:34 APTT 26 SECONDS (21-34) 01/09/17 11:34
[2017-01-15] MEDS: Meropenem 1 GM in Sodium Chloride 0.9% 100 ML IVPB SCH ×3 (05:30→21:32)
[2017-01-15 06:25] LABS: BASO # 0.1 K/uL (0.0-0.2); BASO % 0.9 % (0.0-2.0); EOS # 0.5 K/uL (0.0-0.7); EOS % 5.9 % (0.0-4.0); HEMATOCRIT 35.7 % (34.0-47.0); LYMPH # 1.7 K/uL (1.0-4.3); LYMPH % 21.5 % (20.0-40.0); MEAN CORPUSCULAR HEMOGLOBIN 29.9 pg (27.0-31.0); MEAN CORPUSCULAR HGB CONC 32.2 g/dL (33.0-37.0); MEAN PLATELET VOLUME 8.1 fL (7.2-11.7); MONO # 1.2 K/uL (0.0-0.8); MONO % 15.5 % (0.0-10.0); NRBC % 0.1 % (0.0-2.0); RED CELL DISTRIBUTION WIDTH 13.1 % (11.5-14.5); WHITE BLOOD COUNT 7.8 K/uL (4.8-10.8)
[2017-01-15 06:42] LABS: ALB/GLOB RATIO 0.8 (1.0-2.1); ALKALINE PHOSPHATASE 68 U/L (38-126); ALT/SGPT 33 U/L (9-52); AST/SGOT 15 U/L (14-36); BILIRUBIN,TOTAL 0.2 mg/dL (0.2-1.3); BLOOD UREA NITROGEN 20 mg/dL (7-17); CARBON DIOXIDE 26 mmol/L (22-30); CHLORIDE 100 mmol/L (98-107); GFR AFRICAN-AMERICAN > 60; GLUCOSE,RANDOM 226 mg/dL (65-105); SODIUM 131 mmol/L (132-148); TOTAL PROTEIN 7.2 g/dL (6.3-8.3)
[2017-01-15] MEDS: (Novolin R) Insulin Human Regular 100 units/ml vial SC SCH ×4 (08:13→22:22)
[2017-01-15] MEDS: (Novolog) Insulin Aspart, Recombinant 100 u/ml 10 ml vial SC SCH ×3 (08:13→17:28)
--- NOTE | 2017-01-15 08:54 | CP.PCM.PN ---
Subjective - Date & Time of Evaluation Date of Evaluation: 01/15/17 Time of Evaluation: 08:49 - Subjective Subjective: 71 YEAR OLD POORLY CONTROLED DIABETIC WITH POSITIVE URINE CULTURE AND +BLOOD CULTURE BEING TREATED BY ID CT SCAN SHOWS NO HYDRO OR OBSTRUCTION.PT HAS A STANFORD IN PLACE . A SEPTICEMIA AND UTI WITH DIFFRENT ORGANISMS. SUGGEST PT SHOULD HAVE CYSTOSCOPIC AND URODYNAMIC EVAL WHEN INFECTION FULLY TREATED.DISCUSSED CASE WITH RESIDENT. POLO Objective - Vital Signs/Intake and Output Vital Signs (last 24 hours): Temp Pulse Resp BP Pulse Ox 98.1 F 82 20 155/74 H 95 01/15/17 07:52 01/15/17 07:52 01/15/17 07:52 01/15/17 07:52 01/15/17 07:52 Intake and Output: 01/15/17 01/15/17 06:59 18:59 Intake Total 1950 Output Total 2400 Balance -450 - Medications Medications: Current Medications Acetaminophen (Tylenol 325mg Tab) 650 mg PO Q6 PRN PRN Reason: Pain, moderate (4-7) Last Admin: 01/14/17 06:24 Dose: 650 mg Alprazolam (Xanax) 1 mg PO Q8H [facility] Last Admin: 01/15/17 04:25 Dose: Not Given Aspirin (Ecotrin) 81 mg PO DAILY [facility] Last Admin: 01/14/17 10:18 Dose: 81 mg Clopidogrel Bisulfate (Plavix) 75 mg PO DAILY [facility] Last Admin: 01/14/17 10:18 Dose: 75 mg Clotrimazole (Lotrimin 1%) 1 gm TOP BID [facility] Last Admin: 01/14/17 17:54 Dose: 1 % Docusate Sodium (Colace) 100 mg PO DAILY [facility] Last Admin: 01/14/17 10:18 Dose: Not Given Fluoxetine HCl (Prozac) 40 mg PO DAILY [facility] Last Admin: 01/14/17 10:21 Dose: 40 mg Gabapentin (Neurontin) 100 mg PO TID [facility] Last Admin: 01/14/17 17:52 Dose: 100 mg Heparin Sodium (Porcine) (Heparin) 5,000 units SC Q12 [facility] Last Admin: 01/14/17 22:35 Dose: 5,000 units Sodium Chloride (Sodium Chloride 0.9%) 1,000 mls @ 70 mls/hr IV .[id number] [facility] Last Admin: 01/14/17 20:00 Dose: 70 mls/hr Meropenem 1 gm/ Sodium (Chloride) 100 mls @ 100 mls/hr IVPB Q8 [facility] Last Admin: 01/15/17 05:30 Dose: 100 mls/hr Insulin Aspart (Novolog) 10 unit SC TIDAC [facility] Last Admin: 01/15/17 08:13 Dose: 10 unit Insulin Glargine (Lantus) 50 unit SC HS [facility] Last Admin: 01/14/17 22:39 Dose: 50 units Insulin Human Regular (Novolin R) 0 unit SC ACHS [facility] PRN Reason: Protocol Last Admin: 01/15/17 08:13 Dose: 4 unit Losartan Potassium (Cozaar) 100 mg PO DAILY [facility] Last Admin: 01/14/17 10:18 Dose: 100 mg Ondansetron HCl (Zofran Inj) 4 mg IVP Q6 PRN PRN Reason: Nausea/Vomiting Last Admin: 01/13/17 10:14 Dose: 4 mg Rosuvastatin Calcium (Crestor) 10 mg PO HS [facility] Last Admin: 01/14/17 22:35 Dose: 10 mg Trazodone HCl (Desyrel) 50 mg PO HS [facility] Last Admin: 01/14/17 22:35 Dose: 50 mg - Labs Labs: 01/15/17 06:17 01/15/17 06:17 PT 11.5 SECONDS (9.7-12.2) 01/09/17 11:34 INR 1.0 01/09/17 11:34 APTT 26 SECONDS (21-34) 01/09/17 11:34
--- NOTE | 2017-01-15 09:01 | CP.PCM.PN ---
Subjective - Date & Time of Evaluation Date of Evaluation: 01/15/17 Time of Evaluation: 08:57 - Subjective Subjective: PGY-[address] Tompkins. No acute events overnight. Patient was resting comfortably in bed watching TV. She was in a happier mood today. She reports feeling fatigue, leg cramps b/l. She says she had a BM last night and one this morning that was normal. She said she was going to OOB to chair later in the day. She denied shortness of breath, fevers, chills, vomiting, diarrhea, chest pain, vomiting. Objective - Vital Signs/Intake and Output Vital Signs (last 24 hours): Temp Pulse Resp BP Pulse Ox 98.1 F 82 20 155/74 H 95 01/15/17 07:52 01/15/17 07:52 01/15/17 07:52 01/15/17 07:52 01/15/17 07:52 Intake and Output: 01/15/17 01/15/17 06:59 18:59 Intake Total 1950 Output Total 2400 Balance -450 - Medications Medications: Current Medications Acetaminophen (Tylenol 325mg Tab) 650 mg PO Q6 PRN PRN Reason: Pain, moderate (4-7) Last Admin: 01/14/17 06:24 Dose: 650 mg Alprazolam (Xanax) 1 mg PO Q8H [facility] Last Admin: 01/15/17 04:25 Dose: Not Given Aspirin (Ecotrin) 81 mg PO DAILY [facility] Last Admin: 01/14/17 10:18 Dose: 81 mg Clopidogrel Bisulfate (Plavix) 75 mg PO DAILY [facility] Last Admin: 01/14/17 10:18 Dose: 75 mg Clotrimazole (Lotrimin 1%) 1 gm TOP BID [facility] Last Admin: 01/14/17 17:54 Dose: 1 % Docusate Sodium (Colace) 100 mg PO DAILY [facility] Last Admin: 01/14/17 10:18 Dose: Not Given Fluoxetine HCl (Prozac) 40 mg PO DAILY [facility] Last Admin: 01/14/17 10:21 Dose: 40 mg Gabapentin (Neurontin) 100 mg PO TID [facility] Last Admin: 01/14/17 17:52 Dose: 100 mg Heparin Sodium (Porcine) (Heparin) 5,000 units SC Q12 [facility] Last Admin: 01/14/17 22:35 Dose: 5,000 units Sodium Chloride (Sodium Chloride 0.9%) 1,000 mls @ 70 mls/hr IV .[id number] [facility] Last Admin: 01/14/17 20:00 Dose: 70 mls/hr Meropenem 1 gm/ Sodium (Chloride) 100 mls @ 100 mls/hr IVPB Q8 [facility] Last Admin: 01/15/17 05:30 Dose: 100 mls/hr Insulin Aspart (Novolog) 10 unit SC TIDAC [facility] Last Admin: 01/15/17 08:13 Dose: 10 unit Insulin Glargine (Lantus) 50 unit SC HS [facility] Last Admin: 01/14/17 22:39 Dose: 50 units Insulin Human Regular (Novolin R) 0 unit SC ACHS [facility] PRN Reason: Protocol Last Admin: 01/15/17 08:13 Dose: 4 unit Losartan Potassium (Cozaar) 100 mg PO DAILY [facility] Last Admin: 01/14/17 10:18 Dose: 100 mg Ondansetron HCl (Zofran Inj) 4 mg IVP Q6 PRN PRN Reason: Nausea/Vomiting Last Admin: 01/13/17 10:14 Dose: 4 mg Rosuvastatin Calcium (Crestor) 10 mg PO [facility] Last Admin: 01/14/17 22:35 Dose: 10 mg Trazodone HCl (Desyrel) 50 mg PO [facility] Last Admin: 01/14/17 22:35 Dose: 50 mg - Labs Labs: 01/15/17 06:17 01/15/17 06:17 PT 11.5 SECONDS (9.7-12.2) 01/09/17 11:34 INR 1.0 01/09/17 11:34 APTT 26 SECONDS (21-34) 01/09/17 11:34 - Additional Findings Additional findings: - Constitutional Appears: Non-toxic, No Acute Distress, morbidly obese - Head Exam Head Exam: ATRAUMATIC, NORMAL INSPECTION, NORMOCEPHALIC - Eye Exam Eye Exam: EOMI - ENT Exam ENT Exam: Mucous Membranes Moist - Neck Exam Neck Exam: Full ROM, Normal Inspection - Respiratory Exam Respiratory Exam: NORMAL BREATHING PATTERN. absent: Respiratory Distress - Cardiovascular Exam Cardiovascular Exam: +S1, +S2 - GI/Abdominal Exam GI & Abdominal Exam: Soft, Normal Bowel Sounds. absent: Tenderness - Extremities Exam Extremities Exam: Full ROM, Normal Inspection, lower extremity weakness (wheel chair bound), 1+ pitting edema b/l - Back Exam Back Exam: NORMAL INSPECTION - Neurological Exam Neurological Exam: Alert, Awake, Oriented x3 - Psychiatric Exam Psychiatric exam: Normal Affect, Normal Mood - Skin Skin Exam: Dry, Intact, Normal Color, Warm Additional: Incontinent associated dermatitis on thighs bilaterally Assessment and Plan - Assessment and Plan (Free Text) Assessment: Assessment: Urosepsis ID consulted, Dr Kumar Urology consulted, Dr Minor (recurrent UTIs) -outpatient cystoscopic or urodynamic evaluation when infection is fully treated Criteria (HR >90, WBC >12) Source: UTI On admission: WBC 13.2, 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 Coli - Previous admission Blood culture (+) for Coagulase negative S. Aureus (11/18) Blood culture 01/12 shows no growth up to date Urine culture 01/09 (+) gram negative rods -Previous admission Urine culture (+) for E. Coli (11/14) Urine culture 01/11 (+) for Klebsiella pneumoniae that is ESBL (+) Contact Isolation started 01/14 Replaced Patel 01/14 F/U repeat Urine Culture F/U repeat UA Meds: Discontinued Aztreonam 2g IVPB Q8H 01/14, started 01/09 Meropenem 1g IVPB Q8H started 01/14 (first dose to be given under nursing supervision to monitor for allergic reaction) Imaging: CXR: NAD Type two diabetes mellitus, uncontrolled Patient admits non-compliance for last several days HgbA1C 01/09/17: 8.6 HgA1C 09/17/16: 12.4 Accuchecks Diabetic diet Meds: ISS (high scale) Lantus 50U SC HS (increased from 30U) Novalog 10U TIDAC Neurontin 100 mg PO TID History of CAD Hx of cardiac stent placement (2015) Meds: Plavix 75 mg PO daily ASA 81mg PO daily Crestor 10mg PO HS Imaging: ECHO (01/10/17): EF 70%; mild left ventricular hypertrophy. Moderate left ventricular diastolic dysfunction. Left atrium is moderately dilated. Mild tricuspid regurgitation. ECHO (09/16/16): EF 50%; the left ventricle is normal size. There is normal left ventricular wall thickness. Left ventricle is boderline. There is normal LV segmental wall motion. Transmitral doppler flow pattern is Grade I-abnormal relaxation pattern. Mitral regurgitation is mild. CHF (congestive heart failure), NYHA class I mild diastolic CHF preload dependent HTN Initially hypertensive, Well controlled Hold Home Norvasc due to peripheral edema Con't home med Losartan 100mg PO daily Abnormal UDS Positive for Benzodiazepines Urinary Incontinence Patient admits wearing diapers at home Insert patel Clotrimazole 1% cream to groin area for incontinent associated dermatitis on thighs bilaterally Depression/ anxiety Psychiatry consulted, Dr Sahu Xanax 1 mg PO TID (changed by Dr Sahu from xanax 1mg po TID PRN) Prozac 40 mg PO daily Trazodone 50 mg PO HS LE pain and edema Non-pitting Compression stockings History of falls Pt denies fall since discharge from [facility] in November CT Head (01/09/17): 1. No intracranial hemorrhage. 2. Nonspecific white matter changes (see full report) Prophylactic Pepcid 20 mg PO BID Heparin 5000u Q12H PT/OT Con't home med docusate 100mg PO QD DISPOSITION: Patient will go to subacute rehab upon discharge (she has previously been to [facility], and prefers going back to [facility]). She wants placement at a chcf/long-term care as patient does not feel comfortable living at home alone anymore however, before chcf/long-term placement, patient wants her cat to be adopted. Patient also needs to reinstate her medicaid.
[2017-01-15] MEDS: Clotrimazole 1% Cream(30 gm) TOP SCH ×2 (09:24→17:28)
[2017-01-15 13:13] LABS: RBC URINE 19 /hpf (0-3); URINE BACTERIA RARE (<OCC); URINE BILIRUBIN NEGATIVE (NEGATIVE); URINE BLOOD 2+ (NEGATIVE); URINE COLOR Straw (YELLOW); URINE GLUCOSE (UA) 2+ mg/dL (Normal); URINE KETONE NEGATIVE (NEGATIVE); URINE LEUKOCYTE ESTERASE TRACE Leu/uL (Negative); URINE PROTEIN 2+ mg/dL (NEGATIVE); URINE UROBILINOGEN NORMAL mg/dL (0.2-1.0); WBC URINE 4 /hpf (0-5)
--- NOTE | 2017-01-15 14:26 | PN ---
DATE: 01/15/2017 SUBJECTIVE: The patient is seen. The patient is worried about her cat, stating that the last time the cat was fed was 1 week ago, though she left some food and water in the house. Patient is concerned about having somebody come to her house and check her cat. Other than that, patient is doing well here in the hospital. She is back on her Xanax, trazodone, and Prozac. PHYSICAL EXAMINATION: VITAL SIGNS: Temperature is 98.1, pulse rate is 82, blood pressure is 155/74, respirations 20, oxygen sat is 95%. LABORATORY DATA: Review of her labs, patient's blood sugar is still elevated, it is 309. REVIEW OF SYSTEMS: GENERAL: Patient is alert and oriented x3, seen in her room, cooperative with the staff. SKIN: No diaphoresis. HEENT: No headache. No dizziness. NECK: Supple. RESPIRATORY: No dyspnea. CARDIOVASCULAR: No chest pain. GASTROINTESTINAL: Patient is eating well. EXTREMITIES: Gait is unsteady. MUSCULOSKELETAL: Feels weak. NEUROLOGIC: Alert and oriented x 3 spheres. The patient currently treated for UTI. MENTAL STATUS EXAMINATION: Elderly female who looks stated age, oriented x3. Mood is anxious at times. Affect is reactive. Speech spontaneous. Thought process coherent. Thought content, preoccupied of her pet cat that she left in the house 1 week ago. No psychosis. No suicidal or homicidal ideation. Attention and memory seems to be fair. Insight and judgment fair. Impulse control is fair. IMPRESSION: History of recurrent depression, anxiety, gait dysfunction. PLAN AND RECOMMENDATIONS: The patient is seen. Meds reviewed, continue present psych meds. Patient is for subacute rehab and possible long-term once medically cleared, once her treatment for UTI will be completed. Patient is planning for her cat to be adopted. Topher Sahu MD MTDD
--- NOTE | 2017-01-15 16:29 | PN ---
SUBJECTIVE: The patient was seen today, and she was given meropenem as her urine culture now has ESBL. The patient remains afebrile. She was alert and oriented. She knows that she has this infection in the urine. She tolerated meropenem. The last cultures have come out with the urine culture ESBL. She will be in isolation now and I went to see her. PHYSICAL EXAMINATION: VITAL SIGNS: Stable. HEENT: Atraumatic and normocephalic. NECK: Supple. GENITOURINARY: She was seen by the urologist and she says she has right to refuse, but she was going to think about cystoscopy. She is incontinent of urine. LUNGS: Clear. No crackles or rales present. Decreased breath sounds bilaterally. ABDOMEN: Soft, nontender. No guarding, no rigidity present. EXTREMITIES: Have 1+ edema at this time. I told her that she should decide for the test as she has had recurrent UTIs as this is worthwhile to look into it, so that we can treat her infection. She had no problem with the meropenem. I took the liberty to discontinue the Azactam now as this ESBL is resistant to Azactam, and the E. coli as well as the Klebsiella is sensitive to the meropenem, so we will follow. This patient is diabetic, incontinent of urine with perinephric stranding, has probably pyelonephritis and will need antibiotics for 14 days. She did have a PICC line, and we will follow. We are awaiting to see if she can see urologist to do her cystoscopy. Nikky Kumar MD
[2017-01-15] MEDS: (Lantus) Insulin Glargine, Recombinant SC SCH (21:31)
--- NOTE | 2017-01-15 21:41 | CP.PCM.PN ---
Subjective - Date & Time of Evaluation Date of Evaluation: 01/15/17 Time of Evaluation: 05:00 - Subjective Subjective: dictated Objective - Vital Signs/Intake and Output Vital Signs (last 24 hours): Temp Pulse Resp BP Pulse Ox 97.4 F L 82 18 185/85 H 98 01/15/17 15:30 01/15/17 17:00 01/15/17 15:30 01/15/17 15:30 01/15/17 17:00 - Medications Medications: Current Medications Acetaminophen (Tylenol 325mg Tab) 650 mg PO Q6 PRN PRN Reason: Pain, moderate (4-7) Last Admin: 01/14/17 06:24 Dose: 650 mg Alprazolam (Xanax) 1 mg PO Q8H [facility] Last Admin: 01/15/17 21:31 Dose: 1 mg Aspirin (Ecotrin) 81 mg PO DAILY [facility] Last Admin: 01/15/17 09:24 Dose: 81 mg Clopidogrel Bisulfate (Plavix) 75 mg PO DAILY [facility] Last Admin: 01/15/17 09:23 Dose: 75 mg Clotrimazole (Lotrimin 1%) 1 gm TOP BID [facility] Last Admin: 01/15/17 17:28 Dose: 1 % Docusate Sodium (Colace) 100 mg PO DAILY [facility] Last Admin: 01/15/17 09:23 Dose: 100 mg Fluoxetine HCl (Prozac) 40 mg PO DAILY [facility] Last Admin: 01/15/17 09:23 Dose: 40 mg Gabapentin (Neurontin) 100 mg PO TID [facility] Last Admin: 01/15/17 17:28 Dose: 100 mg Heparin Sodium (Porcine) (Heparin) 5,000 units SC Q12 [facility] Last Admin: 01/15/17 21:31 Dose: 5,000 units Meropenem 1 gm/ Sodium (Chloride) 100 mls @ 100 mls/hr IVPB Q8 [facility] Last Admin: 01/15/17 21:32 Dose: 100 mls/hr Insulin Aspart (Novolog) 10 unit SC TIDAC [facility] Last Admin: 01/15/17 17:28 Dose: 10 unit Insulin Glargine (Lantus) 50 unit SC HS [facility] Last Admin: 01/15/17 21:31 Dose: 50 units Insulin Human Regular (Novolin R) 0 unit SC ACHS [facility] PRN Reason: Protocol Last Admin: 01/15/17 17:19 Dose: Not Given Losartan Potassium (Cozaar) 100 mg PO DAILY [facility] Last Admin: 01/15/17 09:24 Dose: 100 mg Ondansetron HCl (Zofran Inj) 4 mg IVP Q6 PRN PRN Reason: Nausea/Vomiting Last Admin: 01/13/17 10:14 Dose: 4 mg Rosuvastatin Calcium (Crestor) 10 mg PO HS [facility] Last Admin: 01/15/17 21:31 Dose: 10 mg Trazodone HCl (Desyrel) 50 mg PO HS [facility] Last Admin: 01/15/17 21:31 Dose: 50 mg - Labs Labs: 01/15/17 06:17 01/15/17 06:17 PT 11.5 SECONDS (9.7-12.2) 01/09/17 11:34 INR 1.0 01/09/17 11:34 APTT 26 SECONDS (21-34) 01/09/17 11:34
--- NOTE | 2017-01-16 01:03 | PN ---
DATE: SUBJECTIVE: The patient is hesitant to go to the senior living. She states she would be going home if she gets full help with the homeworker. She is tolerating meropenem, and has no rash, no complaints. PHYSICAL EXAMINATION: VITAL SIGNS: T-max is 97.4, pulse is 82, blood pressure 155/74, respirations are 18. HEENT: Head is atraumatic and normocephalic. Pupils are reacting to light. NECK: Supple. LUNGS: Clear. No crackles or rales present. HEART: S1 and S2 is regular. ABDOMEN: Soft and nontender. No guarding, no rigidity present. EXTREMITIES: Have bilateral trace edema. LABORATORY DATA: White count is 7.8, hemoglobin 11.5, hematocrit 35.7, platelet count is 298. Chemistry shows sodium is 131, potassium 4, chloride 100, CO2 is 26, anion gap is 10, BUN is 20, creatinine is 0.9. ASSESSMENT AND PLAN: She came in with Escherichia coli septicemia with urinary tract infection which was Escherichia coli, and on repeat cultures on 01/11, she grew Klebsiella; so, we started her on meropenem and the blood cultures are negative. We will repeat the urine. She is being followed by the urologist. It will be a good idea to give meropenem 10 days to cover for pyelonephritis, and I will follow. She has a PICC line. Otherwise, she can go to rehab to finish her antibiotics, but her sodium still remains low at 131 and they are monitoring the sugars. Nikky Kumar MD
[2017-01-16] MEDS: Meropenem 1 GM in Sodium Chloride 0.9% 100 ML IVPB SCH ×2 (05:33→14:08)
[2017-01-16 07:16] LABS: BASO # 0.1 K/uL (0.0-0.2); EOS # 0.5 K/uL (0.0-0.7); EOS % 6.9 % (0.0-4.0); LYMPH # 1.7 K/uL (1.0-4.3); LYMPH % 23.1 % (20.0-40.0); MEAN CELL VOLUME 92.5 fL (81.0-99.0); MEAN CORPUSCULAR HEMOGLOBIN 31.6 pg (27.0-31.0); MEAN CORPUSCULAR HGB CONC 34.2 g/dL (33.0-37.0); MEAN PLATELET VOLUME 8.3 fL (7.2-11.7); MONO % 13.2 % (0.0-10.0); RED CELL DISTRIBUTION WIDTH 12.9 % (11.5-14.5); WHITE BLOOD COUNT 7.4 K/uL (4.8-10.8)
[2017-01-16 07:29] LABS: ALB/GLOB RATIO 0.8 (1.0-2.1); ALKALINE PHOSPHATASE 66 U/L (38-126); ALT/SGPT 33 U/L (9-52); AST/SGOT 31 U/L (14-36); BILIRUBIN,TOTAL 0.1 mg/dL (0.2-1.3); BLOOD UREA NITROGEN 20 mg/dL (7-17); CALCIUM 8.3 mg/dl (8.6-10.4); CARBON DIOXIDE 29 mmol/L (22-30); CHLORIDE 100 mmol/L (98-107); GFR AFRICAN-AMERICAN > 60; GLUCOSE,RANDOM 171 mg/dL (65-105); POTASSIUM 4.1 mmol/L (3.6-5.2); SODIUM 137 mmol/L (132-148)
[2017-01-16] MEDS: (Novolin R) Insulin Human Regular 100 units/ml vial SC SCH ×3 (09:52→16:30)
[2017-01-16] MEDS: (Novolog) Insulin Aspart, Recombinant 100 u/ml 10 ml vial SC SCH ×3 (09:53→16:30)
[2017-01-16] MEDS: Clotrimazole 1% Cream(30 gm) TOP SCH (10:01)
--- NOTE | 2017-01-16 16:18 | CP.PCM.DIS ---
<Duane Laboy - Last Filed: 01/16/17 16:07> Provider - Provider Date of Admission: 01/09/17 01:41 Attending physician: Steve Moura MD Primary care physician: Dr. Nathaniel Yates Consults: ID: Dr Kumar Psych: Dr Sahu Urology - Dr Minor Time Spent in preparation of Discharge (in minutes): 50 Diagnosis - Discharge Diagnosis (1) Bacteremia Status: Resolved Priority: High (2) UTI (urinary tract infection) Status: Resolved Priority: High Hospital Course - Lab Results Lab Results: Micro Results 01/15/17 15:00 Urine,Patel Urine Culture - Final No Growth (<1,000 CFU/ML) 01/12/17 04:00 Blood-Venous Blood Culture - Preliminary NO GROWTH AFTER 4 DAYS 01/12/17 07:57 Blood-Venous Blood Culture - Preliminary NO GROWTH AFTER 4 DAYS 01/11/17 22:37 Urine Urine Culture - Final Klebsiella Pneumoniae Ssp Pneu 01/09/17 03:00 Blood-Venous Blood Culture - Final NO GROWTH AFTER 5 DAYS 01/09/17 03:00 Blood-Venous Gram Stain - Final TEST NOT PERFORMED 01/09/17 02:30 Blood-Venous Blood Culture - Final Escherichia Coli 01/09/17 02:30 Blood-Venous Gram Stain - Final 01/09/17 08:30 Urine,Patel Urine Culture - Preliminary Gram Negative Anish Most Recent Lab Values WBC 7.4 K/uL (4.8-10.8) 01/16/17 07:03 RBC 3.67 Mil/uL (3.80-5.20) L 01/16/17 07:03 Hgb 11.6 g/dL (11.0-16.0) 01/16/17 07:03 Hct 34.0 % (34.0-47.0) 01/16/17 07:03 MCV 92.5 fL (81.0-99.0) 01/16/17 07:03 MCH 31.6 pg (27.0-31.0) H 01/16/17 07:03 MCHC 34.2 g/dL (33.0-37.0) 01/16/17 07:03 RDW 12.9 % (11.5-14.5) 01/16/17 07:03 Plt Count 305 K/uL (130-400) 01/16/17 07:03 MPV 8.3 fL (7.2-11.7) 01/16/17 07:03 Neut % (Auto) 55.8 % (50.0-75.0) 01/16/17 07:03 Lymph % (Auto) 23.1 % (20.0-40.0) 01/16/17 07:03 [place] % (Auto) 13.2 % (0.0-10.0) H 01/16/17 07:03 Eos % (Auto) 6.9 % (0.0-4.0) H 01/16/17 07:03 Baso % (Auto) 1.0 % (0.0-2.0) 01/16/17 07:03 Neut # 4.1 K/uL (1.8-7.0) 01/16/17 07:03 Lymph # 1.7 K/uL (1.0-4.3) 01/16/17 07:03 [place] # 1.0 K/uL (0.0-0.8) H 01/16/17 07:03 Eos # 0.5 K/uL (0.0-0.7) 01/16/17 07:03 Baso # 0.1 K/uL (0.0-0.2) 01/16/17 07:03 Neutrophils % (Manual) 56 % (50-75) 01/13/17 07:32 Band Neutrophils % 1 % (0-2) 01/13/17 07:32 Lymphocytes % (Manual) 26 % (20-40) 01/13/17 07:32 Reactive Lymphs % 3 % (0-0) H 01/11/17 09:06 Monocytes % (Manual) 11 % (0-10) H 01/13/17 07:32 Eosinophils % (Manual) 6 % (0-4) H 01/13/17 07:32 Basophils % (Manual) 1 % (0-2) 01/11/17 09:06 Metamyelocytes % 1 % (0-0) H 01/10/17 07:38 Myelocytes % 1 % (0-0) H 01/10/17 07:38 Platelet Estimate Normal (NORMAL) 01/13/17 07:32 Giant Platelets Present 01/10/17 07:38 RBC Morphology Normal 01/13/17 07:32 Polychromasia Slight 01/10/17 07:38 Poikilocytosis (manual Slight 01/10/17 07:38 Anisocytosis (manual) Slight 01/10/17 07:38 Tear Drop Cells Slight 01/10/17 07:38 Ovalocytes Slight 01/10/17 07:38 ESR 50 mm/hr (0-20) H 01/09/17 11:34 PT 11.5 SECONDS (9.7-12.2) 01/09/17 11:34 INR 1.0 01/09/17 11:34 APTT 26 SECONDS (21-34) 01/09/17 11:34 pO2 50 mm/Hg (30-55) 01/09/17 15:05 VBG pH 7.39 (7.32-7.43) 01/09/17 15:05 VBG pCO2 33 mmHg (40-60) L 01/09/17 15:05 VBG HCO3 21.4 mmol/L 01/09/17 15:05 VBG Total CO2 21.0 mmol/L (22-28) L 01/09/17 15:05 VBG O2 Sat (Calc) 92.5 % (40-65) H 01/09/17 15:05 VBG Base Excess -4.1 mmol/L (0.0-2.0) L 01/09/17 15:05 VBG Potassium 3.2 mmol/L (3.6-5.2) L 01/09/17 15:05 Sodium 134.0 mmol/l (132-148) 01/09/17 15:05 Chloride 104.0 mmol/L (98-107) 01/09/17 15:05 Glucose 282 mg/dl (65-105) H 01/09/17 15:05 Lactate 1.5 mmol/L (0.7-2.1) 01/09/17 15:05 Liter Flow 2.0 01/09/17 15:05 Blood Gas Comments Abg 01/09/17 15:05 Crit Value Called To Rodolfo sanchez do 01/09/17 10:55 Crit Value Called By Rena kaminski pbx repairer 01/09/17 10:55 Crit Value Read Back N 01/09/17 15:05 Blood Gas Notified Time 1100 01/09/17 10:55 Sodium 137 mmol/L (132-148) 01/16/17 07:03 Potassium 4.1 mmol/L (3.6-5.2) 01/16/17 07:03 Chloride 100 mmol/L (98-107) 01/16/17 07:03 Carbon Dioxide 29 mmol/L (22-30) 01/16/17 07:03 Anion Gap 12 (10-20) 01/16/17 07:03 BUN 20 mg/dL (7-17) H 01/16/17 07:03 Creatinine 1.0 mg/dL (0.7-1.2) 01/16/17 07:03 Est GFR ( Amer) > 60 01/16/17 07:03 Est GFR (Non-Af Amer) 55 01/16/17 07:03 POC Glucose (mg/dL) 235 mg/dL (65-110) H 01/16/17 11:46 Random Glucose 171 mg/dL (65-105) H 01/16/17 07:03 Hemoglobin A1c 8.6 % (4.2-6.5) H D 01/09/17 00:59 Lactic Acid 4.9 mmol/L (0.7-2.1) H* 01/09/17 11:34 Calcium 8.3 mg/dl (8.6-10.4) L 01/16/17 07:03 Phosphorus 3.8 mg/dL (2.5-4.5) 01/13/17 07:32 Magnesium 1.7 mg/dL (1.6-2.3) 01/13/17 07:32 Total Bilirubin 0.1 mg/dL (0.2-1.3) L 01/16/17 07:03 AST 31 U/L (14-36) 01/16/17 07:03 ALT 33 U/L (9-52) 01/16/17 07:03 Alkaline Phosphatase 66 U/L (38-126) 01/16/17 07:03 Troponin I < 0.0120 ng/mL (0.00-0.120) 01/09/17 11:34 C-React Prot High Sens > 15.00 mg/L (1.00-3.00) H 01/09/17 11:34 NT-Pro-B Natriuret Pep 1200 pg/mL (0-900) H 01/09/17 11:34 Total Protein 7.0 g/dL (6.3-8.3) 01/16/17 07:03 Albumin 3.1 g/dL (3.5-5.0) L 01/16/17 07:03 Globulin 3.9 gm/dL (2.2-3.9) 01/16/17 07:03 Albumin/Globulin Ratio 0.8 (1.0-2.1) L 01/16/17 07:03 Triglycerides 139 mg/dL (0-149) 01/09/17 11:38 Cholesterol 160 mg/dL (0-199) 01/09/17 11:38 LDL Cholesterol Direct 80 mg/dL (0-129) 01/09/17 11:38 HDL Cholesterol 68 mg/dL (30-70) 01/09/17 11:38 Procalcitonin 6.42 NG/ML (0.19-0.49) H 01/09/17 11:34 Free T4 1.24 ng/dL (0.78-2.19) 01/09/17 11:34 TSH 3rd Generation 1.15 mIU/L (0.46-4.68) 01/09/17 11:38 Plasma Cortisol PM 33.3 ug/dL (1.7-14.1) H 01/09/17 11:34 Venous Blood Potassium 3.2 mmol/L (3.6-5.2) L 01/09/17 15:05 Urine Color Straw (YELLOW) 01/15/17 12:56 Urine Clarity Clear (Clear) 01/15/17 12:56 Urine pH 7.0 (5.0-8.0) 01/15/17 12:56 Ur Specific Eure 1.009 (1.003-1.030) 01/15/17 12:56 Urine Protein 2+ mg/dL (NEGATIVE) H 01/15/17 12:56 Urine Glucose (UA) 2+ mg/dL (Normal) H 01/15/17 12:56 Urine Ketones Negative mg/dL (NEGATIVE) 01/15/17 12:56 Urine Blood 2+ (NEGATIVE) H 01/15/17 12:56 Urine Nitrate Negative (NEGATIVE) 01/15/17 12:56 Urine Bilirubin Negative (NEGATIVE) 01/15/17 12:56 Urine Urobilinogen Normal mg/dL (0.2-1.0) 01/15/17 12:56 Ur Leukocyte Esterase Trace Kalpesh/uL (Negative) 01/15/17 12:56 Urine WBC (Auto) 4 /hpf (0-5) 01/15/17 12:56 Urine RBC (Auto) 19 /hpf (0-3) H 01/15/17 12:56 Ur Squamous Epith Cells 10 /hpf (0-5) H 01/15/17 12:56 Urine Bacteria Rare (<OCC) 01/15/17 12:56 Urine Opiates Screen Negative (NEGATIVE) 01/09/17 01:16 Urine Methadone Screen Negative (NEGATIVE) 01/09/17 01:16 Ur Barbiturates Screen Negative (NEGATIVE) 01/09/17 01:16 Ur Phencyclidine Scrn Negative (NEGATIVE) 01/09/17 01:16 Ur Amphetamines Screen Negative (NEGATIVE) 01/09/17 01:16 U Benzodiazepines Scrn Positive (NEGATIVE) 01/09/17 01:16 U Oth Cocaine Metabols Negative (NEGATIVE) 01/09/17 01:16 U Cannabinoids Screen Negative (NEGATIVE) 01/09/17 01:16 Serum Ketones Negative (NEGATIVE) 01/08/17 23:40 - Hospital Course Hospital Course: CC: "I'm peeing all the time and feel nauseous" HPI: Patient is a 71 year old female with past medical history of anxiety, depression, htn, hld, CHF (diastolic) IBS with diarrhea, DM, CAD, morbid obesity , who presents to the ED with abdominal pain. Patient reports the abdominal pain began 3 days ago, and describes it is as a "dull pressure" located "right above her bladder." She reports associated polyuria, and polydipsia over the same timeline. She further endorses two episodes of vomiting this AM, of food colored emesis. Patient admits recent discharge from [facility]. She states that after discharge "she mixed up her pills" combining her old home medications , with the discharge medications from [facility]. Patient has bag of medications at bedside containing > 40 pill bottles. She admits "I have no idea what I should be taking everyday" and admits non-compliance with her diabetes regimen for at least the last three days. Patient lives alone. She states she used to have a caregiver but due to the loss of her insurance she has not had one in sometime. Patient reports checking her sugar twice daily states she ranges from "250-450" and is "rarely in the 100s." Patient reports history of patel catheter while at [facility] but denies having one at home. She states she if incontinent often and soils herself often without being able to control the flow. Patient reports using wheelchair and walker at home to ambulate. Patient admits arthritis and chronic weakness in the legs. She has history of multiple falls, but denies any since being discharged from [facility]. She denies fever, chills, headache, chest pain, palpitations, constipation. PMD: Dr. Nathaniel Yates, Dr. Sahu (psych), Dr. 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 Infectious disease, Dr Kumar was consulted. She met SIRS criteria with a source of infection (UTI), with elevated WBC's and left shift thus a code sepsis was called on admission. Her VBG lactate was 4.7, after 3L fluid bolus and a dose of azactem, 3 hours later her VBG lactate was check again and was 1.5. Her urine and blood culture both were positive for E.Coli. Her procalcitonin was high at 6.42. She was treated with aztreonam 2g IVPB Q8H with PICC line. Given her urinary incontinence she wears a diaper at home, thus a patel was inserted. A urine culture drawn on grew Klebsiella Pneumoniae that was ESBL (+). She was put on contact isolation. her patel was switched. Her antibiotic was switched to meropenem 1g IVPB which covered her for her UTI as well as for the ecoli in her blood. She was discharged to rehab and will need to continue meropenem for 7 days once she arrives there. repeat urine and blood culture showed no growth and she was with no leukocytosis and was afebrile. She was discharged to rehab, and advised to continue abx for 7 days, as that is what she preferred to regain her strength as well as the recommendation from physical therapy. Given her recurrent UTIs and now growing klebsiella that is ESBL (+), urology was consulted, Dr Minor. He recommended outpatient cystoscopic or urodynamic evaluation when infection is fully treated During this admission the patient became very emotional about being in the hospital and about being alone. Her psychiatrist, Dr Sahu, who visits this hospital, was consulted. Her changed her xanax from prn to scheduled. Her home medications were continued to treat her chronic conditions including Diabetes, CAD, CHF diastolic), HTN, Depression/Anxiety (home medication list listed in discharge instructions). Given her history of falls a CT head was done which showed no intracranial hemorrhage and nonspecific white matter changes. An ECHO was done on this admission which showed EF 70%; mild left ventricular hypertrophy. Moderate left ventricular diastolic dysfunction. Left atrium is moderately dilated. Mild tricuspid regurgitation. Discharge Exam - Head Exam Head Exam: ATRAUMATIC, NORMAL INSPECTION, NORMOCEPHALIC - Additional Findings Additional findings: - Constitutional Appears: No Acute Distress, Unkempt (smell of urine), Chronically Ill - Eye Exam Eye Exam: EOMI, Normal appearance. absent: Scleral icterus - ENT Exam ENT Exam: Mucous Membranes Dry - Neck Exam Additional comments: Large body habitus makes JVD appreciation difficult - Respiratory Exam Respiratory Exam: Clear to Auscultation Bilateral, NORMAL BREATHING PATTERN. absent: Rales, Rhonchi, Wheezes - Cardiovascular Exam Cardiovascular Exam: Tachycardia, +S1, +S2. absent: Systolic Murmur - GI/Abdominal Exam GI & Abdominal Exam: Normal Bowel Sounds, Soft, Tenderness Additional comments: suprapubic - Extremities Exam Extremities exam: Positive for: pedal edema, pedal pulses present. Negative for : calf tenderness (Jamar negative), tenderness Additional comments: legs warm - Back Exam Back exam: absent: CVA tenderness (L), CVA tenderness (R), rash noted - Neurological Exam Neurological exam: Alert, Oriented x3 - Psychiatric Exam Psychiatric exam: Normal Affect, Normal Mood - Skin Skin Exam: Normal Color, Warm Discharge Plan - Follow Up Plan Condition: GOOD Disposition: REHAB FACILITY/REHAB UNIT Instructions: Heart Failure (DC), Heart Failure (GEN), Pacemaker (DC), Pacemaker (GEN), Pulmonary Edema (DC), Pulmonary Edema (GEN), Diabetic Ketoacidosis (DC), Diabetic Ketoacidosis (GEN), Sepsis (DC), Sepsis (GEN), Acute Abdominal Pain (DC), Acute Abdominal Pain (GEN), Ascites (DC), Ascites ( GEN) Additional Instructions: The patient is medically stable for discharge to acute rehab. The patient will need to continue the following Abx for 7 more days to treat her UTI: Meropenem 1g IVPB Q8H The patient is to resume her home medications including (see full prescription list): Aspirin 81mg PO QD Losartan 100mg PO QD Crestor 10mg PO HS Trazodone 50mg PO HS Lantus 50u SC HS Amlodipine 10mg PO QD Insulin Aspart 14U SC AC Plavix 75mg PO QD Prozac 40mg PO QD Xanax 1mg PO TID prn Docusate 100mg PO QD Gabapentin 100mg PO TID The patient will need to follow up with her PMD, Dr Nathaniel Yates, within 1 week regarding this admission and follow his instructions. If symptoms return or worsen, the patient is to return to the ER. <Vijay Tompkins H - Last Filed: 01/17/17 08:59> Provider - Provider Date of Admission: 01/09/17 01:41 Attending physician: Steve Moura MD Hospital Course - Lab Results Lab Results: Micro Results 01/12/17 04:00 Blood-Venous Blood Culture - Final NO GROWTH AFTER 5 DAYS 01/12/17 04:00 Blood-Venous Gram Stain - Final TEST NOT PERFORMED 01/12/17 07:57 Blood-Venous Blood Culture - Final NO GROWTH AFTER 5 DAYS 01/12/17 07:57 Blood-Venous Gram Stain - Final TEST NOT PERFORMED 01/15/17 15:00 Urine,Patel Urine Culture - Final No Growth (<1,000 CFU/ML) 01/11/17 22:37 Urine Urine Culture - Final Klebsiella Pneumoniae Ssp Pneu 01/09/17 03:00 Blood-Venous Blood Culture - Final NO GROWTH AFTER 5 DAYS 01/09/17 03:00 Blood-Venous Gram Stain - Final TEST NOT PERFORMED 01/09/17 02:30 Blood-Venous Blood Culture - Final Escherichia Coli 01/09/17 02:30 Blood-Venous Gram Stain - Final 01/09/17 08:30 Urine,Patel Urine Culture - Preliminary Gram Negative Anish Most Recent Lab Values WBC 7.4 K/uL (4.8-10.8) 01/16/17 07:03 RBC 3.67 Mil/uL (3.80-5.20) L 01/16/17 07:03 Hgb 11.6 g/dL (11.0-16.0) 01/16/17 07:03 Hct 34.0 % (34.0-47.0) 01/16/17 07:03 MCV 92.5 fL (81.0-99.0) 01/16/17 07:03 MCH 31.6 pg (27.0-31.0) H 01/16/17 07:03 MCHC 34.2 g/dL (33.0-37.0) 01/16/17 07:03 RDW 12.9 % (11.5-14.5) 01/16/17 07:03 Plt Count 305 K/uL (130-400) 01/16/17 07:03 MPV 8.3 fL (7.2-11.7) 01/16/17 07:03 Neut % (Auto) 55.8 % (50.0-75.0) 01/16/17 07:03 Lymph % (Auto) 23.1 % (20.0-40.0) 01/16/17 07:03 [place] % (Auto) 13.2 % (0.0-10.0) H 01/16/17 07:03 Eos % (Auto) 6.9 % (0.0-4.0) H 01/16/17 07:03 Baso % (Auto) 1.0 % (0.0-2.0) 01/16/17 07:03 Neut # 4.1 K/uL (1.8-7.0) 01/16/17 07:03 Lymph # 1.7 K/uL (1.0-4.3) 01/16/17 07:03 [place] # 1.0 K/uL (0.0-0.8) H 01/16/17 07:03 Eos # 0.5 K/uL (0.0-0.7) 01/16/17 07:03 Baso # 0.1 K/uL (0.0-0.2) 01/16/17 07:03 Neutrophils % (Manual) 56 % (50-75) 01/13/17 07:32 Band Neutrophils % 1 % (0-2) 01/13/17 07:32 Lymphocytes % (Manual) 26 % (20-40) 01/13/17 07:32 Reactive Lymphs % 3 % (0-0) H 01/11/17 09:06 Monocytes % (Manual) 11 % (0-10) H 01/13/17 07:32 Eosinophils % (Manual) 6 % (0-4) H 01/13/17 07:32 Basophils % (Manual) 1 % (0-2) 01/11/17 09:06 Metamyelocytes % 1 % (0-0) H 01/10/17 07:38 Myelocytes % 1 % (0-0) H 01/10/17 07:38 Platelet Estimate Normal (NORMAL) 01/13/17 07:32 Giant Platelets Present 01/10/17 07:38 RBC Morphology Normal 01/13/17 07:32 Polychromasia Slight 01/10/17 07:38 Poikilocytosis (manual Slight 01/10/17 07:38 Anisocytosis (manual) Slight 01/10/17 07:38 Tear Drop Cells Slight 01/10/17 07:38 Ovalocytes Slight 01/10/17 07:38 ESR 50 mm/hr (0-20) H 01/09/17 11:34 PT 11.5 SECONDS (9.7-12.2) 01/09/17 11:34 INR 1.0 01/09/17 11:34 APTT 26 SECONDS (21-34) 01/09/17 11:34 pO2 50 mm/Hg (30-55) 01/09/17 15:05 VBG pH 7.39 (7.32-7.43) 01/09/17 15:05 VBG pCO2 33 mmHg (40-60) L 01/09/17 15:05 VBG HCO3 21.4 mmol/L 01/09/17 15:05 VBG Total CO2 21.0 mmol/L (22-28) L 01/09/17 15:05 VBG O2 Sat (Calc) 92.5 % (40-65) H 01/09/17 15:05 VBG Base Excess -4.1 mmol/L (0.0-2.0) L 01/09/17 15:05 VBG Potassium 3.2 mmol/L (3.6-5.2) L 01/09/17 15:05 Sodium 134.0 mmol/l (132-148) 01/09/17 15:05 Chloride 104.0 mmol/L (98-107) 01/09/17 15:05 Glucose 282 mg/dl (65-105) H 01/09/17 15:05 Lactate 1.5 mmol/L (0.7-2.1) 01/09/17 15:05 Liter Flow 2.0 01/09/17 15:05 Blood Gas Comments Abg 01/09/17 15:05 Crit Value Called To Rodolfo sanchez do 01/09/17 10:55 Crit Value Called By Rena kaminski pbx repairer 01/09/17 10:55 Crit Value Read Back N 01/09/17 15:05 Blood Gas Notified Time 1100 01/09/17 10:55 Sodium 137 mmol/L (132-148) 01/16/17 07:03 Potassium 4.1 mmol/L (3.6-5.2) 01/16/17 07:03 Chloride 100 mmol/L (98-107) 01/16/17 07:03 Carbon Dioxide 29 mmol/L (22-30) 01/16/17 07:03 Anion Gap 12 (10-20) 01/16/17 07:03 BUN 20 mg/dL (7-17) H 01/16/17 07:03 Creatinine 1.0 mg/dL (0.7-1.2) 01/16/17 07:03 Est GFR ( Amer) > 60 01/16/17 07:03 Est GFR (Non-Af Amer) 55 01/16/17 07:03 POC Glucose (mg/dL) 102 mg/dL (65-110) 01/16/17 16:20 Random Glucose 171 mg/dL (65-105) H 01/16/17 07:03 Hemoglobin A1c 8.6 % (4.2-6.5) H D 01/09/17 00:59 Lactic Acid 4.9 mmol/L (0.7-2.1) H* 01/09/17 11:34 Calcium 8.3 mg/dl (8.6-10.4) L 01/16/17 07:03 Phosphorus 3.8 mg/dL (2.5-4.5) 01/13/17 07:32 Magnesium 1.7 mg/dL (1.6-2.3) 01/13/17 07:32 Total Bilirubin 0.1 mg/dL (0.2-1.3) L 01/16/17 07:03 AST 31 U/L (14-36) 01/16/17 07:03 ALT 33 U/L (9-52) 01/16/17 07:03 Alkaline Phosphatase 66 U/L (38-126) 01/16/17 07:03 Troponin I < 0.0120 ng/mL (0.00-0.120) 01/09/17 11:34 C-React Prot High Sens > 15.00 mg/L (1.00-3.00) H 01/09/17 11:34 NT-Pro-B Natriuret Pep 1200 pg/mL (0-900) H 01/09/17 11:34 Total Protein 7.0 g/dL (6.3-8.3) 01/16/17 07:03 Albumin 3.1 g/dL (3.5-5.0) L 01/16/17 07:03 Globulin 3.9 gm/dL (2.2-3.9) 01/16/17 07:03 Albumin/Globulin Ratio 0.8 (1.0-2.1) L 01/16/17 07:03 Triglycerides 139 mg/dL (0-149) 01/09/17 11:38 Cholesterol 160 mg/dL (0-199) 01/09/17 11:38 LDL Cholesterol Direct 80 mg/dL (0-129) 01/09/17 11:38 HDL Cholesterol 68 mg/dL (30-70) 01/09/17 11:38 Procalcitonin 6.42 NG/ML (0.19-0.49) H 01/09/17 11:34 Free T4 1.24 ng/dL (0.78-2.19) 01/09/17 11:34 TSH 3rd Generation 1.15 mIU/L (0.46-4.68) 01/09/17 11:38 Plasma Cortisol PM 33.3 ug/dL (1.7-14.1) H 01/09/17 11:34 Venous Blood Potassium 3.2 mmol/L (3.6-5.2) L 01/09/17 15:05 Urine Color Straw (YELLOW) 01/15/17 12:56 Urine Clarity Clear (Clear) 01/15/17 12:56 Urine pH 7.0 (5.0-8.0) 01/15/17 12:56 Ur Specific Eure 1.009 (1.003-1.030) 01/15/17 12:56 Urine Protein 2+ mg/dL (NEGATIVE) H 01/15/17 12:56 Urine Glucose (UA) 2+ mg/dL (Normal) H 01/15/17 12:56 Urine Ketones Negative mg/dL (NEGATIVE) 01/15/17 12:56 Urine Blood 2+ (NEGATIVE) H 01/15/17 12:56 Urine Nitrate Negative (NEGATIVE) 01/15/17 12:56 Urine Bilirubin Negative (NEGATIVE) 01/15/17 12:56 Urine Urobilinogen Normal mg/dL (0.2-1.0) 01/15/17 12:56 Ur Leukocyte Esterase Trace Kalpesh/uL (Negative) 01/15/17 12:56 Urine WBC (Auto) 4 /hpf (0-5) 01/15/17 12:56 Urine RBC (Auto) 19 /hpf (0-3) H 01/15/17 12:56 Ur Squamous Epith Cells 10 /hpf (0-5) H 01/15/17 12:56 Urine Bacteria Rare (<OCC) 01/15/17 12:56 Urine Opiates Screen Negative (NEGATIVE) 01/09/17 01:16 Urine Methadone Screen Negative (NEGATIVE) 01/09/17 01:16 Ur Barbiturates Screen Negative (NEGATIVE) 01/09/17 01:16 Ur Phencyclidine Scrn Negative (NEGATIVE) 01/09/17 01:16 Ur Amphetamines Screen Negative (NEGATIVE) 01/09/17 01:16 U Benzodiazepines Scrn Positive (NEGATIVE) 01/09/17 01:16 U Oth Cocaine Metabols Negative (NEGATIVE) 01/09/17 01:16 U Cannabinoids Screen Negative (NEGATIVE) 01/09/17 01:16 Serum Ketones Negative (NEGATIVE) 01/08/17 23:40 Attending/Attestation - Attestation I have personally seen and examined this patient.: Yes I have fully participated in the care of the patient.: Yes I have reviewed all pertinent clinical information, including history, physical exam and plan: Yes Notes (Text): 01/17/17 08:59 Medical attending: Patient was seen and examined by me, agree with the above note by internist medical doctor md. The patient will need to continue to have rehabilitation at [facility]. As noted before she's can have to continue with the IV antibiotics over there as well for another 7 days. She is also going to need to take her home medications. Thank you very much, Vijay Tompkins
[2017-01-16 16:21] VITALS: BP 148/86; PULSE 67; RESP 20; TEMP 97.6; O2SAT 95
[2017-01-16] MEDS ORDERED: Influenza Vaccine 60 mcg/0.5 mL SYR (4YR UP) IM ONE (16:46)
--- NOTE | 2017-01-16 16:57 | PN ---
DATE:01/16/2017 SUBJECTIVE: The patient was transferred to the 5th floor. The patient is in contact isolation. The patient reports that she has infection in her bladder. The patient has been treated for UTI. Today, she said she is a little hopeful that she may be able to go back home after the rehab with added home care services. She is still reluctant to give her cat for adoption, but the patient is hoping to reinstate her Medicaid, so she can get more home care services at home. CURRENT MEDICATIONS: The patient is on Prozac, trazodone, and Xanax. The patient's Xanax dosing time was given q 8 hours, but we will try to give it 6:00 in the morning, 2:00 in the afternoon and 10:00 at bedtime. The patient was earliest to getting Xanax at 4 a.m. and the patient does not want to be awakened. PHYSICAL EXAMINATION VITAL SIGNS: Temperature is 97.8, pulse rate is 68, blood pressure is 151/84, respirations 20, and oxygen saturations is 96%. GENERAL: The patient is alert and oriented x2, a little better today. She has been cooperative with therapy, still feels weak. SKIN: No diaphoresis. HEENT: No headache. No dizziness. NECK: Supple. RESPIRATORY: No dyspnea. CARDIOVASCULAR: No chest pain. GASTROINTESTINAL: She is eating well. EXTREMITIES: The patient's has unsteady gait. MUSCULOSKELETAL: Feels weak. NEUROLOGIC: Alert and oriented x2, pleasant when seen. MENTAL STATUS EXAMINATION: A very pleasant elderly female who looks stated age, in hospital gown, seen in her room. Mood is labile. Affect is reactive. Speech spontaneous. Thought process coherent. Thought content, the patient is still hopeful she will be able to go back home after the rehab with added home care services and hoping that her Medicaid will be reinstated. As stated, no suicidal or homicidal ideation or psychosis. Attention and memory seems to be fair. Insight and judgment is fair. Impulse control is fair. IMPRESSION: History of recurrent depression, anxiety, urinary tract infection, sepsis, coronary artery disease, congestive heart failure, gait dysfunction. PLAN AND RECOMMENDATION: The patient is seen, meds reviewed. We will change her Xanax, which she is taking to 1 mg p.o. 6:00 a.m., 2:00 p.m. and 10 p.m. and continue to Prozac and the trazodone as ordered. Continue antibiotics as ordered. The patient is being followed by the ID. Once medically cleared, the patient go to [facility] for subacute rehab. Topher Sahu MD MTDD
--- NOTE | 2017-01-19 21:54 | CON ---
DATE: 01/15/2017 REASON FOR CONSULTATION: Urinary tract infection. HISTORY OF PRESENT ILLNESS: The patient was admitted to the hospital because of urinary tract infection. She is a poorly controlled diabetic. She has had a Bennett inserted because of urinary incontinence. While in the hospital, the patient has been worked up and has had a positive urine culture and positive blood culture; however, the organisms are different. She has been treated by the Infectious Diseases Department. The patient has had a CAT scan of the abdomen, which shows no evidence of hydronephrosis or stone or mass lesion. She gives no history of recent UTI. She has chronic incontinence. FAMILY HISTORY: Noncontributory. SOCIAL HISTORY: Noncontributory. REVIEW OF SYSTEMS: RESPIRATORY: The patient has no shortness of breath or difficulty in breathing. She has no wheezing. CARDIAC: The patient has no chest pain or palpitations. No history of NH. GASTROINTESTINAL: The patient is diabetic, who has had difficulty in maintaining her diabetes control. GENITOURINARY: The patient has a history of longstanding incontinence, which she has not been evaluated for. 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 PHYSICAL EXAMINATION: VITAL SIGNS: The patient's temperature is 98. HEAD, EYES, EARS, NOSE, AND THROAT: Within normal limits. NECK: Supple. There are no bruits, nodes, or mass. CHEST: Clear bilaterally. There are no rales or rhonchi. HEART: Normal sinus rhythm. ABDOMEN: Soft, nontender. The patient is somewhat obese. There is no palpable bladder distention. VAGINAL: Shows evidence of chronic irritation secondary to leaking urine, and the patient has irritation of the inner thighs. Bennett catheter is in place. There are no vaginal masses. EXTREMITIES: Normal. ASSESSMENT: My impression is urinary tract infection, chronic incontinence. SUGGEST: The patient should have urodynamic workup and cystoscopic evaluation when the present infection is complete. This may be done as an outpatient. Pan Minor MD
== END 2017-01-16 19:58 | DRG 872 ==
LOC: C.ER 23:00 → C.9E 01-09 01:41 → C.3T 01-09 03:09 → C.5S 01-15 12:21
PROVIDERS: ADMIT Internal Medicine; ATTEND Internal Medicine
PROC: 02HV33Z Insertion of Infusion Device into Superior Vena Cava, Percutaneous Approach (ICD-10-PCS; principal; 2017-01-12)
PROC: B548ZZA Ultrasonography of Superior Vena Cava, Guidance (ICD-10-PCS; 2017-01-12)
DX: A41.51 Sepsis due to Escherichia coli [E. coli] (principal); I11.0 Hypertensive heart disease with heart failure; I50.32 Chronic diastolic (congestive) heart failure; N39.0 Urinary tract infection, site not specified; F33.9 Major depressive disorder, recurrent, unspecified; E87.1 Hypo-osmolality and hyponatremia; E11.65 Type 2 diabetes mellitus with hyperglycemia; Z79.4 Long term (current) use of insulin; B96.89 Other specified bacterial agents as the cause of diseases classified elsewhere; E66.9 Obesity, unspecified; E78.00 Pure hypercholesterolemia, unspecified; E78.5 Hyperlipidemia, unspecified; F41.9 Anxiety disorder, unspecified; G47.00 Insomnia, unspecified; I25.10 Atherosclerotic heart disease of native coronary artery without angina pectoris; I34.0 Nonrheumatic mitral (valve) insufficiency; E87.6 Hypokalemia; I87.2 Venous insufficiency (chronic) (peripheral); Z99.3 Dependence on wheelchair; Z91.19 Patient's noncompliance with other medical treatment and regimen; Z91.14 Patient's other noncompliance with medication regimen; Z85.42 Personal history of malignant neoplasm of other parts of uterus; Z79.82 Long term (current) use of aspirin; Z87.891 Personal history of nicotine dependence; Z95.5 Presence of coronary angioplasty implant and graft; Z78.9 Other specified health status; M16.11 Unilateral primary osteoarthritis, right hip; R32 Unspecified urinary incontinence; L30.9 Dermatitis, unspecified; E66.01 Morbid (severe) obesity due to excess calories

== ENCOUNTER 2017-07-06 13:07 | Emergency (ER) | payer MEDICARE, MEDICAID ==
[2017-07-06 13:26] VITALS: RESP 20
[2017-07-06] MEDS ORDERED: Albuterol-Ipratrop 3 mg / 0.5 (3 ml) UD INH STA (14:11)
[2017-07-06 14:38] LABS: ALB/GLOB RATIO 0.8 (1.0-2.1); ALBUMIN 3.5 g/dL (3.5-5.0); CALCIUM 8.8 mg/dl (8.6-10.4); GFR AFRICAN-AMERICAN > 60; GFR NON-AFRICAN AMERICAN 55
[2017-07-06 14:41] LABS: ALT/SGPT 10 U/L (9-52); AST/SGOT 25 U/L (14-36); BLOOD UREA NITROGEN 30 mg/dL (7-17)
[2017-07-06 14:49] LABS: B-TYPE NATRIURETIC PEPTIDE 418 pg/mL (0-900)
[2017-07-06] MEDS ORDERED: Albuterol-Ipratrop 3 mg / 0.5 (3 ml) UD ONE (15:03)
--- NOTE | 2017-07-06 15:19 | RAD ---
HISTORY: Chest pain COMPARISON: Comparison chest 01/12/2017 TECHNIQUE: Chest PA and lateral FINDINGS: LUNGS: Poor inspiration with low lung volumes, crowded bronchovascular markings and mild bibasilar atelectasis PLEURA: No significant pleural effusion identified. No pneumothorax apparent. CARDIOVASCULAR: Heart appears upper limits of normal. OSSEOUS STRUCTURES: No significant abnormalities. VISUALIZED UPPER ABDOMEN: Normal. OTHER FINDINGS: None. IMPRESSION: Poor inspiration with low lung volumes, crowded bronchovascular markings and mild bibasilar atelectasis
[2017-07-06 15:30] LABS: BASO # 0.1 K/uL (0.0-0.2); BASO % 1.1 % (0.0-2.0); EOS # 0.6 K/uL (0.0-0.7); EOS % 6.9 % (0.0-4.0); HEMOGLOBIN 11.4 g/dL (11.0-16.0); LYMPH # 1.8 K/uL (1.0-4.3); LYMPH % 20.8 % (20.0-40.0); MEAN CELL VOLUME 88.1 fL (81.0-99.0); MEAN CORPUSCULAR HEMOGLOBIN 30.4 pg (27.0-31.0); MEAN CORPUSCULAR HGB CONC 34.5 g/dL (33.0-37.0); MONO # 0.7 K/uL (0.0-0.8); MONO % 8.5 % (0.0-10.0); NEUT # 5.5 K/uL (1.8-7.0); NEUT % 62.7 % (50.0-75.0); RBC 3.73 Mil/uL (3.80-5.20); RED CELL DISTRIBUTION WIDTH 13.6 % (11.5-14.5); WHITE BLOOD COUNT 8.7 K/uL (4.8-10.8)
[2017-07-06 16:16] LABS: SQUAMOUS EPITHIAL 1 /hpf (0-5); URINE BACTERIA FEW (<OCC); URINE BILIRUBIN NEGATIVE (NEGATIVE); URINE BLOOD 1+ (NEGATIVE); URINE CLARITY Hazy (Clear); URINE COLOR Yellow (YELLOW); URINE GLUCOSE (UA) NORMAL (Normal); URINE LEUKOCYTE ESTERASE 3+ Leu/uL (Negative); URINE PROTEIN 1+ mg/dL (NEGATIVE); URINE UROBILINOGEN NORMAL mg/dL (0.2-1.0); WBC CLUMPS RARE /hpf
--- NOTE | 2017-07-06 16:54 | C.PDOC ---
History Of Present Illness 71 y/o female,w/PMHx of CAD, HTN, hypercholesterolemia, and diabetes presents to the ER from long term complaining of CP. Patient states that she has pain while she is moving. Patient reports that she had a pain while she was being moved by home health aide. The pain started on the left side and went to the right side, radiating down the right arm. Patient describes the pain as burning sensation. Pt is also c/o lft ear pain, thrt pian and left sided chatman. Time Seen by Provider: 07/06/17 13:10 Chief Complaint (Nursing): Chest Pain History Per: Patient History/Exam Limitations: no limitations Onset/Duration Of Symptoms: Hrs Current Symptoms Are (Timing): Still Present Severity: Moderate Past Medical History Reviewed: Historical Data, Nursing Documentation, Vital Signs Vital Signs: Last Vital Signs Temp 97.4 F L 07/06/17 13:21 Pulse 67 07/06/17 16:02 Resp 20 07/06/17 16:02 BP 168/69 H 07/06/17 16:02 Pulse Ox 97 07/06/17 19:38 - Medical History PMH: Anxiety, Arthritis (R HIP; B/L KNEE R>L; LB), Depression, Diabetes, HTN, Hypercholesterolemia, Peripheral Edema Denies: Chronic Kidney Disease Surgical History: Appendectomy, Cholecystectomy (1975), Coronary Stent (3) - [facility] Procedures INSERTION OF INFUSION DEV INTO SUP VENA CAVA, PERC APPROACH (01/09/17) ULTRASONOGRAPHY OF SUPERIOR VENA CAVA, GUIDANCE (01/09/17) Family History: States: No Known Family Hx - Social History Hx Tobacco Use: No Hx Alcohol Use: No (socially) Hx Substance Use: No - Immunization History Hx Tetanus Toxoid Vaccination: No Hx Influenza Vaccination: No Hx Pneumococcal Vaccination: No Review Of Systems Except As Marked, All Systems Reviewed And Found Negative. Constitutional: Negative for: Fever, Chills ENT: Positive for: Ear Pain, Throat Pain Neurological: Positive for: Headache Physical Exam - Physical Exam Appears: Non-toxic, No Acute Distress Skin: Normal Color, Warm, Dry Eye(s): bilateral: Normal Inspection Ear(s): Bilateral: Normal Nose: Normal Oral Mucosa: Moist Neck: Supple Chest: Symmetrical Cardiovascular: Rhythm Regular Respiratory: Normal Breath Sounds, No Rales, No Rhonchi, No Wheezing Gastrointestinal/Abdominal: Normal Exam, Soft, No Tenderness Extremity: Other ((+3) pitting edema) Neurological/Psych: Oriented x3, Normal Speech ED Course And Treatment - Laboratory Results Result Diagrams: 07/06/17 15:27 07/06/17 14:07 ECG: Interpreted By Me, Viewed By Me ECG Rhythm: Sinus Rhythm Rate From EC O2 Sat by Pulse Oximetry: 97 (RA) Pulse Ox Interpretation: Normal Progress Note: Labs, ECG, and CXR ordered.Case d/c with patient's PMD. Patient has been discharged with prescription for UTI and told to follow up with PMD. Disposition Discussed With : Aparna Ugalde Doctor Will See Patient In The: Office Counseled Patient/Family Regarding: Diagnosis, Need For Followup, Rx Given - Disposition Referrals: Aparna Ugalde MD [Staff Provider] - Disposition: HOME/ ROUTINE Disposition Time: 16:55 Condition: GOOD Additional Instructions: return if symtpoms worsen Prescriptions: Nitrofurantoin Macrocrystals [Macrobid] 100 mg PO BID 3 Days #6 cap Forms: [facility] (Vietnamese) - Clinical Impression Clinical Impression: Chest discomfort, UTI (urinary tract infection) - Scribe Statement The provider has reviewed the documentation as recorded by the Sammyibe Schuyler Moran Provider Attestation: All medical record entries made by the Scribe were at my direction and personally dictated by me. I have reviewed the chart and agree that the record accurately reflects my personal performance of the history, physical exam, medical decision making, and the department course for this patient. I have also personally directed, reviewed, and agree with the discharge instructions and disposition.
[2017-07-07 01:34] VITALS: BP 154/78; PULSE 68; TEMP 98; O2SAT 96
--- NOTE | 2017-07-07 12:48 | CARD ---
APPROVED REPORT EKG Measurement Heart [id number] <Conclusion> Normal sinus rhythm Normal ECG
== END 2017-07-07 01:24 | disposition home or self-care (01) ==
LOC: C.ER 13:07
DX: R07.9 Chest pain, unspecified (principal); N39.0 Urinary tract infection, site not specified; I25.10 Atherosclerotic heart disease of native coronary artery without angina pectoris; I10 Essential (primary) hypertension; E78.00 Pure hypercholesterolemia, unspecified; E11.9 Type 2 diabetes mellitus without complications; Z87.891 Personal history of nicotine dependence

== ENCOUNTER 2017-08-26 06:46 | Day surgery (SDC) | payer MEDICARE, MEDICAID ==
[~2017-08-26 06:46] MED LIST: Ciprofloxacin 0.3% OPTH SOLN OD SCH; Cyclopentolate 1% Opth (2 ml) OD SCH; Flurbiprofen 0.03% Opht SOLN OD SCH; Lactated Ringer's 500 ML IV ONE; Phenylephrine 2.5% Opht Soln OD SCH; Tropicamide 1% Opht SOLUTION OD SCH
[2017-08-26] MEDS ORDERED: Povidone Iodine Ophthalmic 5% Soln ONE (07:13)
[2017-08-26] MEDS ORDERED: Tetracaine 0.5% Ophth (OR ONLY) ONE (07:14)
[2017-08-26] MEDS ORDERED: Lidocaine 2% MPF (5 ml) Inj ONE (07:29)
[2017-08-26] MEDS ORDERED: Lactated Ringer's 500 ML IV ONE (07:50)
[2017-08-26] MEDS ORDERED: Midazolam 2 MG/2 ML VIAL ONE (07:59)
[2017-08-26] MEDS: Chondroitin/Hyaluronate Opth Syringe KIT (0.55 ml-0.5 ml) IO ONE ×2 (08:20→08:51)
[2017-08-26] MEDS: Carbachol 0.01% IO ONE ×2 (08:20→08:51)
[2017-08-26] MEDS: Hyaluronidase Human, Recombi 150 U/ML VIAL ONE ×2 (08:20→08:50)
[2017-08-26] MEDS: Tobramycin/Dexamethasone OPHT OINT ONE ×2 (08:52→09:16)
[2017-08-26] MEDS ORDERED: Chondroitin/Hyaluronate 40 mg/ml-30 mg/ml Ophth Syringe (0.5 ml) IO ONE (11:30)
[2017-08-26 11:54] VITALS: BP 124/78; PULSE 75; RESP 17; TEMP 97.6; O2SAT 96
--- NOTE | 2017-08-26 23:49 | OP ---
PROCEDURE DATE: 08/26/2017 PREOPERATIVE DIAGNOSIS: Hypermature cataract, right eye. POSTOPERATIVE DIAGNOSIS: Hypermature cataract, right eye. PROCEDURE: Phacoemulsification, right eye with insertion of lens implant using vision blue dye. SURGEON: Memo Jimenez MD ANESTHESIA: Local IV sedation. OPERATIVE PROCEDURE: The patient was brought into the operating room, placed in supine position, prepped and draped in the usual fashion for ophthalmic surgery. Lid speculum was inserted, lids and exposing globe. A side-port incision was made superiorly and inferiorly with a disposable sharp blade. A 2.4-mm keratome incision was made temporally, and air bubble was injected into the anterior chamber followed by vision blue dye. The dye was irrigated out of the anterior chamber with balanced salt solution. The anterior chamber was filled with Viscoat. Capsulorrhexis was performed with Utrata forceps. Hydrodissection carried out with balanced salt solution. Nucleus was then phacoemulsified. The remaining cortical fragments were removed with a split irrigation and aspiration system. Capsular sac was filled with Provisc. A posterior chamber lens was then injected into the sac and rotated into horizontal position. The Provisc was aspirated out of the anterior chamber. The pupil was constricted with Miochol. The three wounds were hydrated with balanced salt solution and found to be watertight. Topical Betadine, Timoptic and TobraDex ointment and pressure patch were applied. The patient tolerated the procedure well. Memo Jimenez MD
== END 2017-08-26 10:48 | disposition home or self-care (01) ==
LOC: C.SDS 06:46
PROVIDERS: ATTEND Ophthalmology
DX: H25.11 Age-related nuclear cataract, right eye (principal)
CPT/HCPCS: 66984; 82948; J2250; J3010; J3470; J7120; V2632

== ENCOUNTER 2018-03-04 14:12 | Inpatient (IN) | payer MEDICAID, MEDICARE ==
[2018-03-04 14:21] VITALS: BMI 34.9
[2018-03-04] MEDS ORDERED: Sodium Chloride 0.9% 1,000 ML IV ONE (15:24)
[2018-03-04] MEDS ORDERED: Iohexol 240 (50 ml) PO STA (15:24)
[2018-03-04 15:35] LABS: BASO # 0.1 K/uL (0.0-0.2); BASO % 0.5 % (0.0-2.0); LYMPH # 0.5 K/uL (1.0-4.3); LYMPH % 2.2 % (20.0-40.0); MEAN CORPUSCULAR HEMOGLOBIN 27.8 pg (27.0-31.0); MEAN CORPUSCULAR HGB CONC 31.6 g/dL (33.0-37.0); MEAN PLATELET VOLUME 7.8 fL (7.2-11.7); MONO # 1.5 K/uL (0.0-0.8); MONO % 6.2 % (0.0-10.0); NEUT # 21.7 K/uL (1.8-7.0); NEUT % 91.1 % (50.0-75.0); PLATELET COUNT 361 K/uL (130-400); RBC 3.09 Mil/uL (3.80-5.20); RED CELL DISTRIBUTION WIDTH 14.8 % (11.5-14.5)
[2018-03-04 15:43] LABS: HEMOGLOBIN 8.6 g/dL (11.0-16.0); WHITE BLOOD COUNT 23.8 K/uL (4.8-10.8)
[2018-03-04] MEDS ORDERED: Iohexol 240 (50 ml) ONE (15:45)
[2018-03-04] MEDS ORDERED: Sodium Chloride 0.9% 1,000 ML ONE (15:45)
--- NOTE | 2018-03-04 15:46 | C.PDOC ---
History Of Present Illness 72 year old female presents to the ED complaining of left-sided abdominal pain since yesterday. Patient states the pain began after she was lifted in a holter lift yesterday. Pain is associated with nausea and vomiting. Patient otherwise denies any diarrhea, constipation, dysuria, fever, chills, or other complaints. Reports feeling shaky. Prior surgical history is significant for cholecystectomy and hysterectomy. Time Seen by Provider: 03/04/18 15:12 Chief Complaint (Nursing): Abdominal Pain History Per: Patient History/Exam Limitations: no limitations Onset/Duration Of Symptoms: Days (x 2) Current Symptoms Are (Timing): Still Present Quality Of Discomfort: "Pain" Associated Symptoms: Nausea, Vomiting Past Medical History Reviewed: Historical Data, Nursing Documentation, Vital Signs Vital Signs: Last Vital Signs Temp 99.3 F 03/04/18 14:38 Pulse 14 L 03/04/18 14:38 Resp 14 03/04/18 14:38 BP 108/47 L 03/04/18 14:38 Pulse Ox 98 03/04/18 14:38 - Medical History PMH: Anxiety, Arthritis (R HIP; B/L KNEE R>L; LB), Depression, Diabetes, HTN, Hypercholesterolemia, Peripheral Edema Denies: Chronic Kidney Disease Surgical History: Appendectomy, Cholecystectomy (1975), Coronary Stent (3) - [facility] Procedures INSERTION OF INFUSION DEV INTO SUP VENA CAVA, PERC APPROACH (01/09/17) ULTRASONOGRAPHY OF SUPERIOR VENA CAVA, GUIDANCE (01/09/17) Family History: States: Unknown Family Hx - Social History Hx Tobacco Use: No Hx Alcohol Use: No (socially) Hx Substance Use: No - Immunization History Hx Tetanus Toxoid Vaccination: No Hx Influenza Vaccination: No Hx Pneumococcal Vaccination: No Review Of Systems Constitutional: Negative for: Fever, Chills Cardiovascular: Negative for: Chest Pain Respiratory: Negative for: Shortness of Breath Gastrointestinal: Positive for: Nausea, Vomiting, Abdominal Pain. Negative for: Diarrhea, Constipation, Hematochezia Genitourinary: Negative for: Dysuria, Frequency, Hematuria Neurological: Negative for: Weakness, Numbness, Headache Physical Exam - Physical Exam Appears: Non-toxic, No Acute Distress, Other (Morbidly obese) Skin: Warm, Dry, No Rash Head: Atraumatic, Normacephalic Eye(s): bilateral: Normal Inspection Oral Mucosa: Moist Neck: Normal ROM Chest: Symmetrical Cardiovascular: Rhythm Regular, No Murmur Respiratory: Normal Breath Sounds, No Rales, No Rhonchi, No Wheezing Gastrointestinal/Abdominal: Bowel Sounds (active), Soft, Tenderness (to the left lower quadrant), No Guarding Back: No CVA Tenderness, No Vertebral Tenderness Extremity: Bilateral: Atraumatic, Normal Color And Temperature, Normal ROM Neurological/Psych: Oriented x3, Normal Speech ED Course And Treatment - Laboratory Results Result Diagrams: 03/04/18 15:30 03/04/18 15:30 Lab Interpretation: Abnormal O2 Sat by Pulse Oximetry: 98 (on RA) Pulse Ox Interpretation: Normal - CT Scan/US abd/pelvis Other Rad Studies (CT/US): Read By Radiologist, Radiology Report Reviewed CT/US Interpretation: Accession No. : [id number]. Patient Name / ID : LUIZ WARNER / [id number]. Exam Date : 03/04/2018 18:27:52 ( Approved ). Study Comment : Sex / Age : F / [id number]. Creator : Kade Rushing MD. Dictator : Kade Rushing MD. Assistant Professor Of Psychology : Jig Inspector : Kade Rushing MD. Approver2 : Report Date : 03/04/2018 18:57:51. My Comment : . This report is currently processing and HAS NOT BEEN OFFICIALLY SIGNED BY THE PHYSICIAN - ESTIMATED TIME OF APPROVAL IS 03/04/2018 19:02. Date of service: 03/04/2018. PROCEDURE: CT Abdomen and Pelvis with contrast. HISTORY: LLQ abd pain. COMPARISON: 01/09/2017. CT abdomen and pelvis. TE CHNIQUE: Intravenous contrast dose: None. Oral contrast only. Radiation dose: Total exam DLP = <inf_radiation_dlp> mGy-cm. This CT exam was performed using one or more of the following dose reduction techniques: Automated exposure control, adjustment of the mA and/or kV according to patient size, and/or use of iterative reconstruction technique. FINDINGS: LOWER THORAX: Unremarkable. LIVER: Unremarkable. No gross lesion or ductal dilatation. GALLBLADDER AND BILE DUCTS: Status post cholecystectomy. No abnormality is seen in the gallbladder fossa. PANCREAS: Unremarkable. No gross lesion or ductal dilatation. SPLEEN: Unremarkable. ADRENALS: Unremarkable. No mass. KIDNEYS AND URETERS: Right kidney in ureter: Unremarkable. No hydronephrosis. No solid mass. Left kidney and ureter: Calcific fragments in upper pole collecting system. Additional fragments noted in the left renal pelvis and proximal ureter. This has resulted in hydronephrosis and an edematous left kidney. VASCULATURE: Unremarkable. No aortic aneurysm. Atherosclerotic calcification and mural plaque present. Findings are seen throughout the aorta. BOWEL: Nondilated small bowel identified in the right anterior lateral wall hernia. No evidence of proximal obstruction. APPENDIX: A normal appendix is visualized in it's entirety. PERITONEUM: Unremarkable. No free fluid. No free air. LYMPH NODES: Unremarkable. No enlarged lymph nodes. BLADDER: Unremarkable. REPRODUCTIVE: Is unremarkable. BONES: No acute fracture. Scoliosis, secondary degenerative change at multiple levels. OTHER FINDINGS: None. IMPRESSION: Left upper tract, left renal pelvis and proximal left ureteral calculi with associated dilatation of the left collecting system. Additional benign and/or incidental findings described above. Medical Decision Making Medical Decision Making: Impression: Abdominal pain Plan: --EKG --Blood work --Urinalysis --IV fluids --8 mg IV Zofran --20 mg IV Pepcid --Pending CT Abdomen/Pelvis 1630 Labs reviewed shows leukocytosis, IZZY, low NaCl, UTI. Patient is still pending CT of abdomen. Ordered blood cultures and IV Zosyn 1815 Patient was resting on stretcher, still pending CT [address] Wayne who admits for Dr Ugalde and accepted patient to service. Disposition - Disposition Disposition: HOSPITALIZED Disposition Time: 19:00 Condition: STABLE - POA Present On Arrival: Poor Glycemic Control - Clinical Impression Clinical Impression: UTI (urinary tract infection), LLQ abdominal pain, Renal calculus - PA / COMMUNICATIONS CONTROLLER / Resident Statement MD/DO has reviewed & agrees with the documentation as recorded. - Scribe Statement The provider has reviewed the documentation as recorded by the Sammyibmigue Feldman All medical record entries made by the Scribe were at my direction and pe rsonally dictated by me. I have reviewed the chart and agree that the record accurately reflects my personal performance of the history, physical exam, medical decision making, and the department course for this patient. I have also personally directed, reviewed, and agree with the discharge instructions and disposition.
[2018-03-04 16:08] LABS: ALBUMIN 3.7 g/dL (3.5-5.0); CALCIUM 8.2 mg/dl (8.6-10.4)
[2018-03-04 16:24] LABS: SQUAMOUS EPITHIAL 1 /hpf (0-5); URINE AMORPHOUS SEDIMENT FEW /ul (<OCC); URINE BACTERIA MOD (<OCC); URINE BILIRUBIN NEGATIVE (NEGATIVE); URINE BLOOD 1+ (NEGATIVE); URINE CLARITY Turbid (Clear); URINE COLOR Yellow (YELLOW); URINE GLUCOSE (UA) NORMAL (Normal); URINE LEUKOCYTE ESTERASE 2+ Leu/uL (Negative); URINE PROTEIN 3+ mg/dL (NEGATIVE)
[2018-03-04 16:48] LABS: BANDS 1 % (0-2); LYMPHOCYTE 5 % (20-40); MONOCYTE 5 % (0-10); NEUTROPHIL 89 % (50-75); TOTAL CELLS COUNTED 100
[2018-03-04 16:49] LABS: PLATELET ESTIMATE NORMAL (NORMAL)
[2018-03-04 16:50] LABS: HYPOCHROMIC SLIGHT
[2018-03-04 16:53] LABS: POLYCHROMIC SLIGHT
[2018-03-04] MEDS ORDERED: Piperacillin/Tazobact 3.375 gm 100 ML IV STA (18:10)
[2018-03-04] MEDS ORDERED: Piperacillin/Tazobact 3.375 gm 100 ML IVPB ONE (18:50)
--- NOTE | 2018-03-04 19:01 | CT ---
Date of service: 03/04/2018 PROCEDURE: CT Abdomen and Pelvis with contrast HISTORY: LLQ abd pain COMPARISON: 01/09/2017. CT abdomen and pelvis. TECHNIQUE: Intravenous contrast dose: None. Oral contrast only. Radiation dose: Total exam DLP = <inf_radiation_dlp> mGy-cm. This CT exam was performed using one or more of the following dose reduction techniques: Automated exposure control, adjustment of the mA and/or kV according to patient size, and/or use of iterative reconstruction technique. FINDINGS: LOWER THORAX: Unremarkable. LIVER: Unremarkable. No gross lesion or ductal dilatation. GALLBLADDER AND BILE DUCTS: Status post cholecystectomy. No abnormality is seen in the gallbladder fossa. PANCREAS: Unremarkable. No gross lesion or ductal dilatation. SPLEEN: Unremarkable. ADRENALS: Unremarkable. No mass. KIDNEYS AND URETERS: Right kidney in ureter: Unremarkable. No hydronephrosis. No solid mass. Left kidney and ureter: Calcific fragments in upper pole collecting system. Additional fragments noted in the left renal pelvis and proximal ureter. This has resulted in hydronephrosis and an edematous left kidney. VASCULATURE: Unremarkable. No aortic aneurysm. Atherosclerotic calcification and mural plaque present. Findings are seen throughout the aorta BOWEL: Nondilated small bowel identified in the right anterior lateral wall hernia. No evidence of proximal obstruction. APPENDIX: A normal appendix is visualized in it's entirety. PERITONEUM: Unremarkable. No free fluid. No free air. LYMPH NODES: Unremarkable. No enlarged lymph nodes. BLADDER: Unremarkable. REPRODUCTIVE: Is unremarkable. BONES: No acute fracture. Scoliosis, secondary degenerative change at multiple levels. OTHER FINDINGS: None. IMPRESSION: Left upper tract, left renal pelvis and proximal left ureteral calculi with associated dilatation of the left collecting system. Additional benign and/or incidental findings described above.
[2018-03-04] MEDS ORDERED: Cefepime IV 2 gm in Dextrose 2 GM/100 ML BAG IVPB ONE (20:00)
--- NOTE | 2018-03-04 20:05 | CP.PCM.HP ---
History of Present Illness - History of Present Illness History of Present Illness: Chief complaint: Abdominal pain HPI: 72-year-old female with history of diabetes, hypertension, hypercholesterolemia history of CAD, status post stent, also history of osteoarthritis was sent from senior care because of not feeling well. For 2 days she was having increasing abdominal pain She was also having nausea. Yesterday she had a few episodes of vomiting. Poor appetite. Fever and chills present. Patient in the emergency room was seen, and evaluated. Now she is having in some pain. But poor appetite and not feeling well. She is also pale looking. But she is not in any distress. On past medical history: Diabetes, hypertension, hypercholesterolemia, CAD, status post stent. Surgical history include hysterectomy, cholecystectomy Allergy there was a concern about the questionable penicillin allergy, but in the emergency room patient received Zosyn without any problem. Ex-smoker. Denies any alcohol. Currently senior care resident. Review of system: Noted from the chart. No headache. But weakness, recurrent falls in the past. No lung symptoms. Denies any chest pain. CAD. Status post stenting x3. No abdominal pain. But for the last 2 days increasing abdominal pain nausea vomiting and also complaining of burning frequent incontinent urine On examination: Vital signs reviewed Chest good air entry Regular [place] noted. Abdomen diffusely tenderness present. 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 Patient also have a minimal tenderness in the left renal angle area. 1+ pedal edema Labs reviewed Elevated WBC noted. Also has elevated BUN and creatinine level noted. CAT scan of the abdomen showing evidence of left hydronephrosis with obstructing calculi Assessment and recommendation: 72-year-old female admitted to the hospital with a possible acute hydronephrosis, such with acute renal insufficiency and obstructing renal stones. Associated with the urosepsis. Patient is also having significant diabetes uncontrolled. Patient is at high risk for septic shock. I discussed with the urologist and infectious disease. As the patient has no evidence of allergy to penicillin at this time Maxipime 2 g then 1 g. Urology evaluation. ABG ordered. IV fluid. DVT GI prophylaxis. Currently we will hold the Plavix and aspirin for 24 hours. N.p.o. Glucose control and will follow the patient. Present on Admission - Present on Admission Any Indicators Present on Admission: No History of DVT/PE: No History of Uncontrolled Diabetes: No Urinary Catheter: No Decubitus Ulcer Present: No Past Patient History - Infectious Disease Hx of Infectious Diseases: None - Past Medical History & Family History Past Medical History?: Yes - Past Social History Smoking Status: Former Smoker - CARDIAC Hx Hypercholesterolemia: Yes Hx Hypertension: Yes Hx Peripheral Edema: Yes - PULMONARY Hx Respiratory Disorders: No - NEUROLOGICAL Hx Neurological Disorder: No - HEENT Hx HEENT Problems: Yes Hx Cataracts: Yes - RENAL Hx Chronic Kidney Disease: No - ENDOCRINE/METABOLIC Hx Endocrine Disorders: Yes Hx Diabetes Mellitus Type 1: Yes - HEMATOLOGICAL/ONCOLOGICAL Hx Blood Disorders: No - INTEGUMENTARY Hx Dermatological Problems: No - MUSCULOSKELETAL/RHEUMATOLOGICAL Hx Arthritis: Yes (R HIP; B/L KNEE R>L; LB) - GASTROINTESTINAL Hx Gastrointestinal Disorders: Yes Hx Irritable Bowel: Yes Other/Comment: HX: DYSPHAGIA - GENITOURINARY/GYNECOLOGICAL Hx Genitourinary Disorders: Yes Hx Uterine Cancer: Yes (hysterectomy 2007) - PSYCHIATRIC Hx Anxiety: Yes Hx Depression: Yes Hx Substance Use: No - SURGICAL HISTORY Hx Appendectomy: Yes Hx Cholecystectomy: Yes (1975) Hx Coronary Stent: Yes () - ANESTHESIA Hx Anesthesia: Yes Hx Anesthesia Reactions: No Hx Malignant Hyperthermia: No Meds Allergies/Adverse Reactions: Allergies Allergy/AdvReac Type Severity Reaction Status Date / Time Penicillins Allergy Verified 03/04/18 14:21 Results - Vital Signs Recent Vital Signs: Last Vital Signs Temp 99.0 F 03/04/18 19:12 Pulse 86 03/04/18 19:12 Resp 100 H 03/04/18 19:12 BP 127/64 03/04/18 19:12 Pulse Ox 98 03/04/18 19:05 - Labs Result Diagrams: 03/04/18 15:30 03/04/18 15:30 Labs: Laboratory Results - last 24 hr 03/04/18 03/04/18 03/04/18 15:30 15:30 16:14 WBC 23.8 H D RBC 3.09 L Hgb 8.6 L D Hct 27.2 L MCV 88.0 MCH 27.8 MCHC 31.6 L RDW 14.8 H Plt Count 361 MPV 7.8 Neut % (Auto) 91.1 H Lymph % (Auto) 2.2 L Anson % (Auto) 6.2 Eos % (Auto) 0.0 Baso % (Auto) 0.5 Neut # (Auto) 21.7 H Lymph # (Auto) 0.5 L Anson # (Auto) 1.5 H Eos # (Auto) 0.0 Baso # (Auto) 0.1 Neutrophils % (Manual) 89 H Band Neutrophils % 1 Lymphocytes % (Manual) 5 L Monocytes % (Manual) 5 Platelet Estimate Normal Polychromasia Slight Hypochromasia (manual) Slight Sodium 129 L Potassium 3.9 Chloride 88 L Carbon Dioxide 28 Anion Gap 17 BUN 75 H Creatinine 2.9 H Est GFR ( Amer) 19 Est GFR (Non-Af Amer) 16 Random Glucose 241 H D Calcium 8.2 L Total Bilirubin 0.4 AST 21 ALT 9 Alkaline Phosphatase 82 Total Protein 7.4 Albumin 3.7 Globulin 3.7 Albumin/Globulin Ratio 1.0 Lipase 30 Urine Color Yellow Urine Clarity Turbid Urine pH 7.0 Ur Specific [place] 1.012 Urine Protein 3+ H Urine Glucose (UA) Normal Urine Ketones Trace Urine Blood 1+ H Urine Nitrate Negative Urine Bilirubin Negative Urine Urobilinogen 2.0 H Ur Leukocyte Esterase 2+ H Urine WBC (Auto) 147 H Urine RBC (Auto) 5 H Ur Squamous Epith Cells 1 Amorphous Sediment Few H Urine Bacteria Mod H
[2018-03-04] MEDS: Sodium Chloride 0.9% 1,000 ML IV SCH (20:22)
[2018-03-04 20:53] LABS: VENOUS BLOOD GAS BASE EXCESS -1.1 mmol/L (0.0-2.0); VENOUS BLOOD GAS PCO2 48 mmHg (40-60); VENOUS BLOOD GAS PO2 23 mm/Hg (30-55); VENOUS BLOOD PH 7.33 (7.32-7.43)
[2018-03-04] MEDS ORDERED: Piperacill/Tazo 2.25gm in Dex 2.25 GM/50 ML BAG IVPB SCH (22:00)
[2018-03-04] MEDS ORDERED: (Lantus) Insulin Glargine, Recombinant SC SCH (22:00)
[2018-03-04] MEDS: (Novolin R) Insulin Human Regular 100 units/ml vial SC SCH (22:38)
[2018-03-05 07:52] LABS: BASO # 0.1 K/uL (0.0-0.2); BASO % 0.5 % (0.0-2.0); HEMOGLOBIN 8.1 g/dL (11.0-16.0); LYMPH # 0.3 K/uL (1.0-4.3); LYMPH % 1.7 % (20.0-40.0); MEAN CORPUSCULAR HEMOGLOBIN 29.5 pg (27.0-31.0); MEAN CORPUSCULAR HGB CONC 33.5 g/dL (33.0-37.0); MONO # 1.1 K/uL (0.0-0.8); MONO % 5.7 % (0.0-10.0); NEUT # 18.4 K/uL (1.8-7.0); NEUT % 92.1 % (50.0-75.0); PLATELET COUNT 324 K/uL (130-400); RBC 2.76 Mil/uL (3.80-5.20); RED CELL DISTRIBUTION WIDTH 14.9 % (11.5-14.5); WHITE BLOOD COUNT 19.9 K/uL (4.8-10.8)
[2018-03-05] MEDS: (Novolin R) Insulin Human Regular 100 units/ml vial SC SCH ×5 (08:09→21:48)
[2018-03-05 08:15] LABS: ALB/GLOB RATIO 0.9 (1.0-2.1); ALBUMIN 3.4 g/dL (3.5-5.0); CALCIUM 7.7 mg/dl (8.6-10.4)
--- NOTE | 2018-03-05 08:36 | RAD ---
Date of service: 03/04/2018 HISTORY: for admission COMPARISON: 07/06/2017. FINDINGS: LUNGS: The lungs are well inflated and there is redemonstration of mild pulmonary venous congestion. There is stable linear atelectasis/scarring in the left lower lobe. No focal consolidation. PLEURA: No pleural effusions or pneumothorax. CARDIOVASCULAR: Persistent mild cardiomegaly. No aortic atherosclerotic calcification present. OSSEOUS STRUCTURES: Within normal limits for the patient's age. VISUALIZED UPPER ABDOMEN: Normal. OTHER FINDINGS: None. IMPRESSION: No acute findings.
[2018-03-05 08:57] LABS: BANDS 2 % (0-2); LYMPHOCYTE 1 % (20-40); MONOCYTE 4 % (0-10); NEUTROPHIL 93 % (50-75); TOTAL CELLS COUNTED 100
[2018-03-05 08:59] LABS: HYPOCHROMIC SLIGHT; PLATELET ESTIMATE NORMAL (NORMAL); POLYCHROMIC SLIGHT
--- NOTE | 2018-03-05 09:40 | CP.PCM.PN ---
Subjective - Date & Time of Evaluation Date of Evaluation: 03/05/18 Time of Evaluation: 09:38 - Subjective Subjective: Patient is more comfortable now, but still continues to have a pain over the left flank region. Abdominal pain noted. She is feeling thirsty at this time, also feeling hungry at this time. Patient has a very poor venous access. She is currently n.p.o. for possible cystoscopy and stent placement. On examination: Vital signs stable. No fever last night. Chest good air entry Abdominal tenderness in the left flank region noted. Labs reviewed Worsening renal function noted. The culture is currently pending Assessment and recognition: 72-year-old female with a history of diabetes hypertension CAD hypercholesteremia stent and very poorly controlled diabetes admitted to the hospital with severe sepsis, left-sided hydronephrosis, renal colic and as well as renal stones. Patient is currently n.p.o. for possible cystoscopy and stent placement. Anemia noted, will monitor the hemoglobin, patient may need transfusion Nephrology evaluation. Infectious disease evaluation also in pending and will follow the patient Objective - Vital Signs/Intake and Output Vital Signs (last 24 hours): Temp Pulse Resp BP Pulse Ox 98.1 F 98 H 20 126/66 98 03/05/18 08:00 03/05/18 08:00 03/05/18 08:00 03/05/18 08:00 03/05/18 08:00 Intake and Output: 03/05/18 03/05/18 06:59 18:59 Intake Total 800 Output Total 100 Balance 800 -100 - Medications Medications: Current Medications Acetaminophen (Tylenol 325mg Tab) 650 mg PO Q4 PRN PRN Reason: Pain, Mild (1-3) Last Admin: 03/04/18 21:33 Dose: 650 mg Alprazolam (Xanax) 0.5 mg PO Q8H PRN PRN Reason: Anxiety Last Admin: 03/05/18 03:51 Dose: 0.5 mg Fluoxetine HCl (Prozac) 10 mg PO DAILY [facility] Gabapentin (Neurontin) 300 mg PO BID [facility] Sodium Chloride (Sodium Chloride 0.9%) 1,000 mls @ 100 mls/hr IV .Q10H [facility] Last Admin: 03/04/18 20:22 Dose: 100 mls/hr Cefepime HCl (Maxipime Iv 1 Gm Premix) 1 gm in 50 mls @ 100 mls/hr IVPB Q24H [facility]; Protocol Insulin Human Regular (Novolin R) 0 unit SC ACHS [facility]; Protocol Last Admin: 03/05/18 08:09 Dose: Not Given - Labs Labs: 03/05/18 07:40 03/05/18 07:40
[2018-03-05] MEDS: Cefepime IV 1 gm in Dextrose 1 GM/50 ML BAG IVPB SCH (09:56)
[2018-03-05] MEDS: Sodium Chloride 0.9% 1,000 ML IV SCH ×2 (09:57→17:00)
[2018-03-05] MEDS ORDERED: SODIUM CHLORIDE 0.9% IV SCH (10:00)
[2018-03-05] MEDS ORDERED: CEFOTAXIME IV SCH (10:00)
[2018-03-05] MEDS ORDERED: Vancomycin 750mg/NS 150 ml 150 ML IVPB ONE (12:00)
[2018-03-05] MEDS ORDERED: Iohexol 240 (50 ml) ONE (12:08)
[2018-03-05] MEDS ORDERED: cefTRIAXone 1 gm 0 GM/0 ML BAG IVPB ONE (12:08)
[2018-03-05] MEDS ORDERED: Sodium Chloride 0.9% 1,000 ML IV SCH (12:15)
[2018-03-05] MEDS ORDERED: Midazolam 2 MG/2 ML VIAL ONE (12:22)
[2018-03-05] MEDS ORDERED: Propofol 10 mg/ml Inj (20 ML) ONE (12:24)
[2018-03-05] MEDS ORDERED: Lidocaine 2% Jelly (Uro-Jet) ONE (12:38)
[2018-03-05] MEDS ORDERED: Ketamine 50 mg/ml Inj (10 ml) ONE (12:50)
--- NOTE | 2018-03-05 13:07 | CP.PCM.CON ---
Past Patient History - Infectious Disease Hx of Infectious Diseases: None - Past Medical History & Family History Past Medical History?: Yes - Past Social History Smoking Status: Former Smoker - CARDIAC Hx Hypercholesterolemia: Yes Hx Hypertension: Yes Hx Peripheral Edema: Yes - PULMONARY Hx Respiratory Disorders: No - NEUROLOGICAL Hx Neurological Disorder: No - HEENT Hx HEENT Problems: Yes Hx Cataracts: Yes - RENAL Hx Chronic Kidney Disease: No - ENDOCRINE/METABOLIC Hx Endocrine Disorders: Yes Hx Diabetes Mellitus Type 1: Yes - HEMATOLOGICAL/ONCOLOGICAL Hx Blood Disorders: No - INTEGUMENTARY Hx Dermatological Problems: No - MUSCULOSKELETAL/RHEUMATOLOGICAL Hx Arthritis: Yes (R HIP; B/L KNEE R>L; LB) - GASTROINTESTINAL Hx Gastrointestinal Disorders: Yes Hx Irritable Bowel: Yes Other/Comment: HX: DYSPHAGIA - GENITOURINARY/GYNECOLOGICAL Hx Genitourinary Disorders: Yes Hx Uterine Cancer: Yes (hysterectomy 2007) - PSYCHIATRIC Hx Anxiety: Yes Hx Depression: Yes Hx Substance Use: No - SURGICAL HISTORY Hx Appendectomy: Yes Hx Cholecystectomy: Yes (1975) Hx Coronary Stent: Yes (3) - ANESTHESIA Hx Anesthesia: Yes Hx Anesthesia Reactions: No Hx Malignant Hyperthermia: No Meds Allergies/Adverse Reactions: Allergies Allergy/AdvReac Type Severity Reaction Status Date / Time No Known Allergies Allergy Verified 03/04/18 20:13 - Medications Medications: Current Medications Acetaminophen (Tylenol 325mg Tab) 650 mg PO Q4 PRN PRN Reason: Pain, Mild (1-3) Last Admin: 03/04/18 21:33 Dose: 650 mg Alprazolam (Xanax) 0.5 mg PO Q8H PRN PRN Reason: Anxiety Last Admin: 03/05/18 03:51 Dose: 0.5 mg Fluoxetine HCl (Prozac) 10 mg PO DAILY [facility] Last Admin: 03/05/18 10:09 Dose: Not Given Gabapentin (Neurontin) 300 mg PO BID [facility] Last Admin: 03/05/18 10:09 Dose: Not Given Sodium Chloride (Sodium Chloride 0.9%) 1,000 mls @ 100 mls/hr IV .Q10H [facility] Last Admin: 03/05/18 09:57 Dose: 100 mls/hr Cefepime HCl (Maxipime Iv 1 Gm Premix) 1 gm in 50 mls @ 100 mls/hr IVPB Q24H [facility]; Protocol Last Admin: 03/05/18 09:56 Dose: 100 mls/hr Insulin Human Regular (Novolin R) 0 unit SC ACHS [facility]; Protocol Last Admin: 03/05/18 12:08 Dose: Not Given Results - Vital Signs Recent Vital Signs: Last Vital Signs Temp 98.1 F 03/05/18 08:00 Pulse 98 H 03/05/18 08:00 Resp 20 03/05/18 08:00 BP 126/66 03/05/18 08:00 Pulse Ox 98 03/05/18 08:00 - Labs Result Diagrams: 03/05/18 07:40 03/05/18 07:40 Labs: Laboratory Results - last 24 hr 03/04/18 03/04/18 03/04/18 15:30 15:30 16:14 WBC 23.8 H D RBC 3.09 L Hgb 8.6 L D Hct 27.2 L MCV 88.0 MCH 27.8 MCHC 31.6 L RDW 14.8 H Plt Count 361 MPV 7.8 Neut % (Auto) 91.1 H Lymph % (Auto) 2.2 L [place] % (Auto) 6.2 Eos % (Auto) 0.0 Baso % (Auto) 0.5 Neut # (Auto) 21.7 H Lymph # (Auto) 0.5 L [place] # (Auto) 1.5 H Eos # (Auto) 0.0 Baso # (Auto) 0.1 Neutrophils % (Manual) 89 H Band Neutrophils % 1 Lymphocytes % (Manual) 5 L Monocytes % (Manual) 5 Platelet Estimate Normal Polychromasia Slight Hypochromasia (manual) Slight pO2 VBG pH VBG pCO2 VBG HCO3 VBG Total CO2 VBG O2 Sat (Calc) VBG Base Excess VBG Potassium Glucose Lactate Sodium 129 L Potassium 3.9 Chloride 88 L Carbon Dioxide 28 Anion Gap 17 BUN 75 H Creatinine 2.9 H Est GFR ( Amer) 19 Est GFR (Non-Af Amer) 16 POC Glucose (mg/dL) Random Glucose 241 H D Calcium 8.2 L Phosphorus Magnesium Total Bilirubin 0.4 AST 21 ALT 9 Alkaline Phosphatase 82 Total Protein 7.4 Albumin 3.7 Globulin 3.7 Albumin/Globulin Ratio 1.0 Lipase 30 Venous Blood Potassium Urine Color Yellow Urine Clarity Turbid Urine pH 7.0 Ur Specific [place] 1.012 Urine Protein 3+ H Urine Glucose (UA) Normal Urine Ketones Trace Urine Blood 1+ H Urine Nitrate Negative Urine Bilirubin Negative Urine Urobilinogen 2.0 H Ur Leukocyte Esterase 2+ H Urine WBC (Auto) 147 H Urine RBC (Auto) 5 H Ur Squamous Epith Cells 1 Amorphous Sediment Few H Urine Bacteria Mod H 03/04/18 03/04/18 03/05/18 20:45 22:04 01:57 WBC RBC Hgb Hct MCV MCH MCHC RDW Plt Count MPV Neut % (Auto) Lymph % (Auto) [place] % (Auto) Eos % (Auto) Baso % (Auto) Neut # (Auto) Lymph # (Auto) [place] # (Auto) Eos # (Auto) Baso # (Auto) Neutrophils % (Manual) Band Neutrophils % Lymphocytes % (Manual) Monocytes % (Manual) Platelet Estimate Polychromasia Hypochromasia (manual) pO2 23 L VBG pH 7.33 VBG pCO2 48 VBG HCO3 22.4 VBG Total CO2 26.8 VBG O2 Sat (Calc) 45.3 VBG Base Excess -1.1 L VBG Potassium 4.2 Glucose 328 H Lactate 1.9 Sodium 132.0 Potassium Chloride 94.0 L Carbon Dioxide Anion Gap BUN Creatinine Est GFR ( Amer) Est GFR (Non-Af Amer) POC Glucose (mg/dL) 315 H 304 H Random Glucose Calcium Phosphorus Magnesium Total Bilirubin AST ALT Alkaline Phosphatase Total Protein Albumin Globulin Albumin/Globulin Ratio Lipase Venous Blood Potassium 4.2 Urine Color Urine Clarity Urine pH Ur Specific [place] Urine Protein Urine Glucose (UA) Urine Ketones Urine Blood Urine Nitrate Urine Bilirubin Urine Urobilinogen Ur Leukocyte Esterase Urine WBC (Auto) Urine RBC (Auto) Ur Squamous Epith Cells Amorphous Sediment Urine Bacteria 03/05/18 03/05/18 03/05/18 06:20 07:40 07:40 WBC 19.9 H RBC 2.76 L Hgb 8.1 L Hct 24.3 L MCV 88.0 MCH 29.5 MCHC 33.5 RDW 14.9 H Plt Count 324 MPV 8.0 Neut % (Auto) 92.1 H Lymph % (Auto) 1.7 L [place] % (Auto) 5.7 Eos % (Auto) 0.0 Baso % (Auto) 0.5 Neut # (Auto) 18.4 H Lymph # (Auto) 0.3 L [place] # (Auto) 1.1 H Eos # (Auto) 0.0 Baso # (Auto) 0.1 Neutrophils % (Manual) 93 H Band Neutrophils % 2 Lymphocytes % (Manual) 1 L Monocytes % (Manual) 4 Platelet Estimate Normal Polychromasia Slight Hypochromasia (manual) Slight pO2 VBG pH VBG pCO2 VBG HCO3 VBG Total CO2 VBG O2 Sat (Calc) VBG Base Excess VBG Potassium Glucose Lactate Sodium 129 L Potassium 3.9 Chloride 90 L Carbon Dioxide 26 Anion Gap 16 BUN 72 H Creatinine 3.2 H Est GFR ( Amer) 17 Est GFR (Non-Af Amer) 14 POC Glucose (mg/dL) 325 H Random Glucose 328 H D Calcium 7.7 L Phosphorus 3.2 Magnesium 2.6 H Total Bilirubin 0.3 AST 24 ALT 15 Alkaline Phosphatase 95 Total Protein 6.9 Albumin 3.4 L Globulin 3.6 Albumin/Globulin Ratio 0.9 L Lipase Venous Blood Potassium Urine Color Urine Clarity Urine pH Ur Specific [place] Urine Protein Urine Glucose (UA) Urine Ketones Urine Blood Urine Nitrate Urine Bilirubin Urine Urobilinogen Ur Leukocyte Esterase Urine WBC (Auto) Urine RBC (Auto) Ur Squamous Epith Cells Amorphous Sediment Urine Bacteria 03/05/18 03/05/18 11:50 13:02 WBC RBC Hgb Hct MCV MCH MCHC RDW Plt Count MPV Neut % (Auto) Lymph % (Auto) [place] % (Auto) Eos % (Auto) Baso % (Auto) Neut # (Auto) Lymph # (Auto) [place] # (Auto) Eos # (Auto) Baso # (Auto) Neutrophils % (Manual) Band Neutrophils % Lymphocytes % (Manual) Monocytes % (Manual) Platelet Estimate Polychromasia Hypochromasia (manual) pO2 VBG pH VBG pCO2 VBG HCO3 VBG Total CO2 VBG O2 Sat (Calc) VBG Base Excess VBG Potassium Glucose Lactate Sodium Potassium Chloride Carbon Dioxide Anion Gap BUN Creatinine Est GFR ( Amer) Est GFR (Non-Af Amer) POC Glucose (mg/dL) 332 H 268 H Random Glucose Calcium Phosphorus Magnesium Total Bilirubin AST ALT Alkaline Phosphatase Total Protein Albumin Globulin Albumin/Globulin Ratio Lipase Venous Blood Potassium Urine Color Urine Clarity Urine pH Ur Specific [place] Urine Protein Urine Glucose (UA) Urine Ketones Urine Blood Urine Nitrate Urine Bilirubin Urine Urobilinogen Ur Leukocyte Esterase Urine WBC (Auto) Urine RBC (Auto) Ur Squamous Epith Cells Amorphous Sediment Urine Bacteria Assessment & Plan - Assessment and Plan (Free Text) Assessment: IMP: uto hydronephrosis urolithiasis DM CAD Hypertension Azotemia Anemia full note t/f YS - Date & Time Date: 03/05/18 Time: 12:10
--- NOTE | 2018-03-05 13:15 | PCM.SURG1 ---
Surgeon's Initial Post Op Note - Surgeon's Notes Surgeon: Brian Cooney Assistant Brand Manager: none Type of Anesthesia: IV Sedation Pre-Operative Diagnosis: L hydronephrosis. UTI. Urolithiasis Operative Findings: same. cystitis Post-Operative Diagnosis: same Operation Performed: cysto. L ureteral catheterization. RTG pyelogram. stent insertion. EUA Specimen/Specimens Removed: urine Estimated Blood Loss: EBL {In ML}: 0 Blood Products Given: N/A Post-Op Condition: Good Date of Surgery/Procedure: 03/05/18 Time of Surgery/Procedure: 13:17
[2018-03-05] MEDS ORDERED: Sodium Chloride 0.9% 500 ML IV ONE ×2 (13:20)
--- NOTE | 2018-03-05 14:02 | CP.PCM.CON ---
<Debora Knapp - Last Filed: 03/05/18 14:39> History of Present Illness - History of Present Illness History of Present Illness: ICU Consult Note for Dr. Mclaughlin HPI: 72 y/o female with PMHx of CAD (s/p 3 stents), CHF, SHILPA, HTN, DM, depression and anxiety is s/p L uteral stent insertion by Dr. Brian Cooney today POD0. Admitted due to increased abd pain, nausea/vomiting on 03/04. Found to have L hydronephrosis, UTI and urolithiasis pre-op. Admitted under Dr. Wayne, who is covering for patient's physician Dr. Ugalde. Post op, being transferred to ICU for observation. Patient states she feels good and is not in pain. 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 However, vitals rechecked in the PACU on evaluation were T100.4, P86, BP increased to 120/57 (was lower per RN), RR 18. Patient was seen on 4L [place] O2 sat at 100%. Patient denies being on any home oxygen. PMH: as stated above PSH: s/p L uteral stent insertion by Dr. Brian Cooney today POD0. 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 Lives in [place]. No family around. She states her POC is Oscar Box, a nurse, is her friend. Meds: see MAR Allergies: PCN Past Patient History - Infectious Disease Hx of Infectious Diseases: None - Past Medical History & Family History Past Medical History?: Yes - Past Social History Smoking Status: Former Smoker - CARDIAC Hx Hypercholesterolemia: Yes Hx Hypertension: Yes Hx Peripheral Edema: Yes - PULMONARY Hx Respiratory Disorders: No - NEUROLOGICAL Hx Neurological Disorder: No - HEENT Hx HEENT Problems: Yes Hx Cataracts: Yes - RENAL Hx Chronic Kidney Disease: No - ENDOCRINE/METABOLIC Hx Endocrine Disorders: Yes Hx Diabetes Mellitus Type 1: Yes - HEMATOLOGICAL/ONCOLOGICAL Hx Blood Disorders: No - INTEGUMENTARY Hx Dermatological Problems: No - MUSCULOSKELETAL/RHEUMATOLOGICAL Hx Arthritis: Yes (R HIP; B/L KNEE R>L; LB) - GASTROINTESTINAL Hx Gastrointestinal Disorders: Yes Hx Irritable Bowel: Yes Other/Comment: HX: DYSPHAGIA - GENITOURINARY/GYNECOLOGICAL Hx Genitourinary Disorders: Yes Hx Uterine Cancer: Yes (hysterectomy 2007) - PSYCHIATRIC Hx Anxiety: Yes Hx Depression: Yes Hx Substance Use: No - SURGICAL HISTORY Hx Appendectomy: Yes Hx Cholecystectomy: Yes (1975) Hx Coronary Stent: Yes (3) - ANESTHESIA Hx Anesthesia: Yes Hx Anesthesia Reactions: No Hx Malignant Hyperthermia: No Meds Allergies/Adverse Reactions: Allergies Allergy/AdvReac Type Severity Reaction Status Date / Time No Known Allergies Allergy Verified 03/04/18 20:13 - Medications Medications: Current Medications Acetaminophen (Tylenol 325mg Tab) 650 mg PO Q4 PRN PRN Reason: Pain, Mild (1-3) Last Admin: 03/04/18 21:33 Dose: 650 mg Alprazolam (Xanax) 0.5 mg PO Q8H PRN PRN Reason: Anxiety Last Admin: 03/05/18 03:51 Dose: 0.5 mg Fluoxetine HCl (Prozac) 10 mg PO DAILY [facility] Last Admin: 03/05/18 10:09 Dose: Not Given Gabapentin (Neurontin) 300 mg PO BID [facility] Last Admin: 03/05/18 10:09 Dose: Not Given Sodium Chloride (Sodium Chloride 0.9%) 1,000 mls @ 100 mls/hr IV .Q10H [facility] Last Admin: 03/05/18 09:57 Dose: 100 mls/hr Cefepime HCl (Maxipime Iv 1 Gm Premix) 1 gm in 50 mls @ 100 mls/hr IVPB Q24H [facility]; Protocol Last Admin: 03/05/18 09:56 Dose: 100 mls/hr Sodium Chloride (Sodium Chloride 0.9%) 1,000 mls @ 100 mls/hr IV .Q10H [facility] Insulin Human Regular (Novolin R) 0 unit SC ACHS [facility]; Protocol Last Admin: 03/05/18 13:49 Dose: 6 unit Morphine Sulfate (Morphine) 1 mg IVP Q10M PRN PRN Reason: Pain, moderate (4-7) Stop: 03/05/18 15:16 Ondansetron HCl (Zofran Inj) 4 mg IVP ONCE PRN PRN Reason: Nausea/Vomiting Stop: 03/05/18 15:16 Physical Exam - Constitutional Appears: Well, Other (obese elderly female in no acute distress) - Head Exam Head Exam: ATRAUMATIC, NORMAL INSPECTION, NORMOCEPHALIC - Eye Exam Eye Exam: EOMI, Normal appearance - Neck Exam Neck exam: Positive for: Normal Inspection - Respiratory Exam Respiratory Exam: Clear to Auscultation Bilateral, NORMAL BREATHING PATTERN - Cardiovascular Exam Cardiovascular Exam: REGULAR RHYTHM - GI/Abdominal Exam GI & Abdominal Exam: Normal Bowel Sounds, Soft. absent: Guarding, Rebound, Rigid - Extremities Exam Extremities exam: Positive for: normal capillary refill, pedal edema (nonpitting) - Neurological Exam Neurological exam: Alert - Psychiatric Exam Psychiatric exam: Normal Affect, Normal Mood - Skin Skin Exam: Warm Results - Vital Signs Recent Vital Signs: Last Vital Signs Temp 98.1 F 03/05/18 08:00 Pulse 98 H 03/05/18 08:00 Resp 20 03/05/18 08:00 BP 126/66 03/05/18 08:00 Pulse Ox 98 03/05/18 08:00 - Labs Result Diagrams: 03/05/18 07:40 03/05/18 07:40 Labs: Laboratory Results - last 24 hr 03/04/18 03/04/18 03/04/18 15:30 15:30 16:14 WBC 23.8 H D RBC 3.09 L Hgb 8.6 L D Hct 27.2 L MCV 88.0 MCH 27.8 MCHC 31.6 L RDW 14.8 H Plt Count 361 MPV 7.8 Neut % (Auto) 91.1 H Lymph % (Auto) 2.2 L Terry % (Auto) 6.2 Eos % (Auto) 0.0 Baso % (Auto) 0.5 Neut # (Auto) 21.7 H Lymph # (Auto) 0.5 L Terry # (Auto) 1.5 H Eos # (Auto) 0.0 Baso # (Auto) 0.1 Neutrophils % (Manual) 89 H Band Neutrophils % 1 Lymphocytes % (Manual) 5 L Monocytes % (Manual) 5 Platelet Estimate Normal Polychromasia Slight Hypochromasia (manual) Slight pO2 VBG pH VBG pCO2 VBG HCO3 VBG Total CO2 VBG O2 Sat (Calc) VBG Base Excess VBG Potassium Glucose Lactate Sodium 129 L Potassium 3.9 Chloride 88 L Carbon Dioxide 28 Anion Gap 17 BUN 75 H Creatinine 2.9 H Est GFR ( Amer) 19 Est GFR (Non-Af Amer) 16 POC Glucose (mg/dL) Random Glucose 241 H D Calcium 8.2 L Phosphorus Magnesium Total Bilirubin 0.4 AST 21 ALT 9 Alkaline Phosphatase 82 Total Protein 7.4 Albumin 3.7 Globulin 3.7 Albumin/Globulin Ratio 1.0 Lipase 30 Venous Blood Potassium Urine Color Yellow Urine Clarity Turbid Urine pH 7.0 Ur Specific [place] 1.012 Urine Protein 3+ H Urine Glucose (UA) Normal Urine Ketones Trace Urine Blood 1+ H Urine Nitrate Negative Urine Bilirubin Negative Urine Urobilinogen 2.0 H Ur Leukocyte Esterase 2+ H Urine WBC (Auto) 147 H Urine RBC (Auto) 5 H Ur Squamous Epith Cells 1 Amorphous Sediment Few H Urine Bacteria Mod H 03/04/18 03/04/18 03/05/18 20:45 22:04 01:57 WBC RBC Hgb Hct MCV MCH MCHC RDW Plt Count MPV Neut % (Auto) Lymph % (Auto) Terry % (Auto) Eos % (Auto) Baso % (Auto) Neut # (Auto) Lymph # (Auto) Terry # (Auto) Eos # (Auto) Baso # (Auto) Neutrophils % (Manual) Band Neutrophils % Lymphocytes % (Manual) Monocytes % (Manual) Platelet Estimate Polychromasia Hypochromasia (manual) pO2 23 L VBG pH 7.33 VBG pCO2 48 VBG HCO3 22.4 VBG Total CO2 26.8 VBG O2 Sat (Calc) 45.3 VBG Base Excess -1.1 L VBG Potassium 4.2 Glucose 328 H Lactate 1.9 Sodium 132.0 Potassium Chloride 94.0 L Carbon Dioxide Anion Gap BUN Creatinine Est GFR ( Amer) Est GFR (Non-Af Amer) POC Glucose (mg/dL) 315 H 304 H Random Glucose Calcium Phosphorus Magnesium Total Bilirubin AST ALT Alkaline Phosphatase Total Protein Albumin Globulin Albumin/Globulin Ratio Lipase Venous Blood Potassium 4.2 Urine Color Urine Clarity Urine pH Ur Specific [place] Urine Protein Urine Glucose (UA) Urine Ketones Urine Blood Urine Nitrate Urine Bilirubin Urine Urobilinogen Ur Leukocyte Esterase Urine WBC (Auto) Urine RBC (Auto) Ur Squamous Epith Cells Amorphous Sediment Urine Bacteria 03/05/18 03/05/18 03/05/18 06:20 07:40 07:40 WBC 19.9 H RBC 2.76 L Hgb 8.1 L Hct 24.3 L MCV 88.0 MCH 29.5 MCHC 33.5 RDW 14.9 H Plt Count 324 MPV 8.0 Neut % (Auto) 92.1 H Lymph % (Auto) 1.7 L Terry % (Auto) 5.7 Eos % (Auto) 0.0 Baso % (Auto) 0.5 Neut # (Auto) 18.4 H Lymph # (Auto) 0.3 L Terry # (Auto) 1.1 H Eos # (Auto) 0.0 Baso # (Auto) 0.1 Neutrophils % (Manual) 93 H Band Neutrophils % 2 Lymphocytes % (Manual) 1 L Monocytes % (Manual) 4 Platelet Estimate Normal Polychromasia Slight Hypochromasia (manual) Slight pO2 VBG pH VBG pCO2 VBG HCO3 VBG Total CO2 VBG O2 Sat (Calc) VBG Base Excess VBG Potassium Glucose Lactate Sodium 129 L Potassium 3.9 Chloride 90 L Carbon Dioxide 26 Anion Gap 16 BUN 72 H Creatinine 3.2 H Est GFR ( Amer) 17 Est GFR (Non-Af Amer) 14 POC Glucose (mg/dL) 325 H Random Glucose 328 H D Calcium 7.7 L Phosphorus 3.2 Magnesium 2.6 H Total Bilirubin 0.3 AST 24 ALT 15 Alkaline Phosphatase 95 Total Protein 6.9 Albumin 3.4 L Globulin 3.6 Albumin/Globulin Ratio 0.9 L Lipase Venous Blood Potassium Urine Color Urine Clarity Urine pH Ur Specific [place] Urine Protein Urine Glucose (UA) Urine Ketones Urine Blood Urine Nitrate Urine Bilirubin Urine Urobilinogen Ur Leukocyte Esterase Urine WBC (Auto) Urine RBC (Auto) Ur Squamous Epith Cells Amorphous Sediment Urine Bacteria 03/05/18 03/05/18 03/05/18 11:50 13:02 13:40 WBC RBC Hgb Hct MCV MCH MCHC RDW Plt Count MPV Neut % (Auto) Lymph % (Auto) Terry % (Auto) Eos % (Auto) Baso % (Auto) Neut # (Auto) Lymph # (Auto) Terry # (Auto) Eos # (Auto) Baso # (Auto) Neutrophils % (Manual) Band Neutrophils % Lymphocytes % (Manual) Monocytes % (Manual) Platelet Estimate Polychromasia Hypochromasia (manual) pO2 VBG pH VBG pCO2 VBG HCO3 VBG Total CO2 VBG O2 Sat (Calc) VBG Base Excess VBG Potassium Glucose Lactate Sodium Potassium Chloride Carbon Dioxide Anion Gap BUN Creatinine Est GFR ( Amer) Est GFR (Non-Af Amer) POC Glucose (mg/dL) 332 H 268 H 322 H Random Glucose Calcium Phosphorus Magnesium Total Bilirubin AST ALT Alkaline Phosphatase Total Protein Albumin Globulin Albumin/Globulin Ratio Lipase Venous Blood Potassium Urine Color Urine Clarity Urine pH Ur Specific [place] Urine Protein Urine Glucose (UA) Urine Ketones Urine Blood Urine Nitrate Urine Bilirubin Urine Urobilinogen Ur Leukocyte Esterase Urine WBC (Auto) Urine RBC (Auto) Ur Squamous Epith Cells Amorphous Sediment Urine Bacteria Assessment & Plan - Assessment and Plan (Free Text) Assessment: 72 y/o female with PMHx of CAD (s/p 3 stents), SHILPA, HTN, DM, depression and anxiety is s/p L uteral stent insertion by Dr. Brian Cooney today POD0. neuro -awake, alert -no acute issues CV -hx of CAD, HTN, -CHF(?) - on home lasix and metolazone -patient currently not on home HTN and CHF meds -monitor BP and s/sx of fluid overload, adjust accordingly Pulm -no acute issues -Incentive spirometer -maintain SpO2 > 92% Renal -s/p L uteral stent insertion by Dr. Brian Cooney today POD0 -renal injury noted on morning pre op labs BUN/Cr 72/3.2 -hyponatremia 129 -Magnesium 2.6 (H) -follow urologist Dr. Brian Cooney recs -pain meds PRN and antiemetics PRN -monitor closely IOs -patel cath in place -CMP qAM GI -resume diabetic liquid diet and advance as tolerated -zofran PRN -no acute issues ID -patient with leukocytosis -1/3 UA w/ UTI: leukocyte esterase and WBC and 1/3 bacteremia; blood cx resulted in gram neg rods -No hypotension, tachypnea, or AMS. qSOFA of 0. -on cefepime 2g daily -tylenol PRN for fever > 100.4 Endo -DM2 poorly controlled, on home insulin -accuchecks ACHS -hypoglycemia protocol -gabapentin 300 mg BID Heme -chronic anemia -CBC qAM Psych -PMHx of depression/anxiety -xanax 0.5 mg q8h PRN -fluoxetine 10 mg daily DVT ppx: SCDs GI ppx: not indicated Debora Knapp PGY1 <Corey Estrella - Last Filed: 03/05/18 21:05> Meds - Medications Medications: Current Medications Acetaminophen (Tylenol 325mg Tab) 650 mg PO Q4 PRN PRN Reason: Pain, Mild (1-3) Last Admin: 03/04/18 21:33 Dose: 650 mg Alprazolam (Xanax) 0.5 mg PO Q8H PRN PRN Reason: Anxiety Last Admin: 03/05/18 03:51 Dose: 0.5 mg Dextrose (Dextrose 50% Inj) 0 ml IV STAT PRN; Protocol PRN Reason: Hypoglycemia Protocol Dextrose (Glutose 15) 0 gm PO ONCE PRN; Protocol PRN Reason: Hypoglycemia Protocol Fluoxetine HCl (Prozac) 10 mg PO DAILY [facility] Last Admin: 03/05/18 10:09 Dose: Not Given Gabapentin (Neurontin) 300 mg PO BID [facility] Last Admin: 03/05/18 10:09 Dose: Not Given Glucagon (Glucagen Diagnostic Kit) 0 mg IM STAT PRN; Protocol PRN Reason: Hypoglycemia Protocol Sodium Chloride (Sodium Chloride 0.9%) 1,000 mls @ 100 mls/hr IV .Q10H [facility] Last Admin: 03/05/18 09:57 Dose: 100 mls/hr Cefepime HCl (Maxipime Iv 1 Gm Premix) 1 gm in 50 mls @ 100 mls/hr IVPB Q24H [facility]; Protocol Last Admin: 03/05/18 09:56 Dose: 100 mls/hr Sodium Chloride (Sodium Chloride 0.9%) 1,000 mls @ 100 mls/hr IV .Q10H [facility] Dextrose (Dextrose 5% In Water 1000 Ml) 1,000 mls @ 0 mls/hr IV .Q0M PRN; Protocol PRN Reason: Hypoglycemia Protocol Sodium Chloride (Sodium Chloride 0.9%) 1,000 mls @ 75 mls/hr IV .[id number] [facility] Insulin Human Regular (Novolin R) 0 unit SC ACHS [facility]; Protocol Last Admin: 03/05/18 16:25 Dose: 4 unit Results - Vital Signs Recent Vital Signs: Last Vital Signs Temp 101 F H 03/05/18 17:00 Pulse 76 03/05/18 17:00 Resp 16 03/05/18 17:00 BP 115/54 L 03/05/18 17:00 Pulse Ox 99 03/05/18 17:00 - Labs Result Diagrams: 03/05/18 19:57 03/05/18 19:57 Labs: Laboratory Results - last 24 hr 03/04/18 03/05/18 03/05/18 22:04 01:57 06:20 WBC RBC Hgb Hct MCV MCH MCHC RDW Plt Count MPV Neut % (Auto) Lymph % (Auto) Terry % (Auto) Eos % (Auto) Baso % (Auto) Neut # (Auto) Lymph # (Auto) Terry # (Auto) Eos # (Auto) Baso # (Auto) Neutrophils % (Manual) Band Neutrophils % Lymphocytes % (Manual) Monocytes % (Manual) Platelet Estimate Polychromasia Hypochromasia (manual) Sodium Potassium Chloride Carbon Dioxide Anion Gap BUN Creatinine Est GFR ( Amer) Est GFR (Non-Af Amer) POC Glucose (mg/dL) 315 H 304 H 325 H Random Glucose Calcium Phosphorus Magnesium Total Bilirubin AST ALT Alkaline Phosphatase Total Protein Albumin Globulin Albumin/Globulin Ratio 03/05/18 03/05/18 03/05/18 07:40 07:40 11:50 WBC 19.9 H RBC 2.76 L Hgb 8.1 L Hct 24.3 L MCV 88.0 MCH 29.5 MCHC 33.5 RDW 14.9 H Plt Count 324 MPV 8.0 Neut % (Auto) 92.1 H Lymph % (Auto) 1.7 L Terry % (Auto) 5.7 Eos % (Auto) 0.0 Baso % (Auto) 0.5 Neut # (Auto) 18.4 H Lymph # (Auto) 0.3 L Terry # (Auto) 1.1 H Eos # (Auto) 0.0 Baso # (Auto) 0.1 Neutrophils % (Manual) 93 H Band Neutrophils % 2 Lymphocytes % (Manual) 1 L Monocytes % (Manual) 4 Platelet Estimate Normal Polychromasia Slight Hypochromasia (manual) Slight Sodium 129 L Potassium 3.9 Chloride 90 L Carbon Dioxide 26 Anion Gap 16 BUN 72 H Creatinine 3.2 H Est GFR ( Amer) 17 Est GFR (Non-Af Amer) 14 POC Glucose (mg/dL) 332 H Random Glucose 328 H D Calcium 7.7 L Phosphorus 3.2 Magnesium 2.6 H Total Bilirubin 0.3 AST 24 ALT 15 Alkaline Phosphatase 95 Total Protein 6.9 Albumin 3.4 L Globulin 3.6 Albumin/Globulin Ratio 0.9 L 03/05/18 03/05/18 03/05/18 13:02 13:40 16:13 WBC RBC Hgb Hct MCV MCH MCHC RDW Plt Count MPV Neut % (Auto) Lymph % (Auto) Terry % (Auto) Eos % (Auto) Baso % (Auto) Neut # (Auto) Lymph # (Auto) Terry # (Auto) Eos # (Auto) Baso # (Auto) Neutrophils % (Manual) Band Neutrophils % Lymphocytes % (Manual) Monocytes % (Manual) Platelet Estimate Polychromasia Hypochromasia (manual) Sodium Potassium Chloride Carbon Dioxide Anion Gap BUN Creatinine Est GFR ( Amer) Est GFR (Non-Af Amer) POC Glucose (mg/dL) 268 H 322 H 296 H Random Glucose Calcium Phosphorus Magnesium Total Bilirubin AST ALT Alkaline Phosphatase Total Protein Albumin Globulin Albumin/Globulin Ratio 03/05/18 03/05/18 19:57 19:57 WBC 15.7 H RBC 2.79 L Hgb 8.0 L Hct 24.5 L MCV 87.7 MCH 28.5 MCHC 32.5 L RDW 14.9 H Plt Count 274 MPV 7.6 Neut % (Auto) Lymph % (Auto) Terry % (Auto) Eos % (Auto) Baso % (Auto) Neut # (Auto) Lymph # (Auto) Terry # (Auto) Eos # (Auto) Baso # (Auto) Neutrophils % (Manual) Band Neutrophils % Lymphocytes % (Manual) Monocytes % (Manual) Platelet Estimate Polychromasia Hypochromasia (manual) Sodium 132 Potassium 3.6 Chloride 96 L Carbon Dioxide 26 Anion Gap 14 BUN 70 H Creatinine 3.2 H Est GFR ( Amer) 17 Est GFR (Non-Af Amer) 14 POC Glucose (mg/dL) Random Glucose 248 H D Calcium 7.7 L Phosphorus Magnesium Total Bilirubin 0.3 AST 25 ALT 16 Alkaline Phosphatase 87 Total Protein 6.9 Albumin 3.3 L Globulin 3.6 Albumin/Globulin Ratio 0.9 L Assessment & Plan - Assessment and Plan (Free Text) Plan: [facility] Attending History as noted by housestaff. Pt s/p Ureteral stent had fever in PACU which has resolved. pt resting says abd. pain improved. No sob/n /v. PE T-98.6 P-70 BP-140/68 Neck- no jvd Lungs- bilat bs Hewart-rr aBd- bs+, soft, no localized tenderness Ext- bipedal edema Labs-reviewed A&P S/P Ureteral Stent Gram Neg Bacteremia UTI IZZY Hyponatremia Anemia CAD/Stents Hx CHF HTN DM Anxiety/ Depression SHILPA cont meds cont IV fluid cont AB Antiipyretics prn maintain optimal lytes BS control OK for medical floor at this time Re-consult prn
[2018-03-05] MEDS ORDERED: Glucagon Recombinant 1 mg Inj IM PRN (14:09)
[2018-03-05] MEDS ORDERED: Dextrose 50% SYRINGE Inj (50 ml) IV PRN (14:09)
--- NOTE | 2018-03-05 15:45 | CP.PCM.CON ---
History of Present Illness - History of Present Illness History of Present Illness: HPI: 72 y/o female with PMHx of CAD (s/p 3 stents), CHF, SHILPA,PVD, HTN, DM, depression and anxiety, CKD is now s/p L uteral stent insertion by Dr. Brian Cooney today POD0. Admitted due to increased abd pain, nausea/vomiting on 03/04. Found to have L hydronephrosis, UTI and urolithiasis pre-op, and elevated creatinine. Has been febrile pre-op; now temps increased to 102. Has GNR bacteremia, UTI. Noted to have increasing azotemia since 03/04. Post op, being transferred to ICU for observation. Patient states she is not in pain post-op.Was hypotensive in OR, now better with IV fluid rescuscitation. However, vitals rechecked in the PACU on evaluation were now T102, P86, BP increased to 120/57 (was lower per RN), RR 18. Patient was seen on 4L [place] O2 sat at 100%. Patient denies being on any home oxygen. PMH: as stated above PSH: s/p L uteral stent insertion by Dr. Brian Cooney today POD0. 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 Lives in [place]. No family around. She states her POC is Oscar Box, a nurse, is her friend. Meds: see MAR Allergies: PCN Review of Systems - Review of Systems Systems not reviewed;Unavailable: Unstable Vital Signs Past Patient History - Infectious Disease Hx of Infectious Diseases: None - Past Medical History & Family History Past Medical History?: Yes Past Family History: Reviewed and not pertinent - Past Social History Smoking Status: Former Smoker Chewing Tobacco Use: No Cigar Use: No Alcohol: None Drugs: Denies Home Situation {Lives}: [place] - CARDIAC Hx Cardiac Disorders: Yes Hx Hypercholesterolemia: Yes Hx Hypertension: Yes Hx Peripheral Edema: Yes - PULMONARY Hx Respiratory Disorders: No - NEUROLOGICAL Hx Neurological Disorder: No - HEENT Hx HEENT Problems: Yes Hx Cataracts: Yes - RENAL Hx Chronic Kidney Disease: No - ENDOCRINE/METABOLIC Hx Endocrine Disorders: Yes Hx Diabetes Mellitus Type 1: Yes - HEMATOLOGICAL/ONCOLOGICAL Hx Blood Disorders: No - INTEGUMENTARY Hx Dermatological Problems: No - MUSCULOSKELETAL/RHEUMATOLOGICAL Hx Arthritis: Yes (R HIP; B/L KNEE R>L; LB) - GASTROINTESTINAL Hx Gastrointestinal Disorders: Yes Hx Irritable Bowel: Yes Other/Comment: HX: DYSPHAGIA - GENITOURINARY/GYNECOLOGICAL Hx Genitourinary Disorders: Yes Hx Uterine Cancer: Yes (hysterectomy 2007) - PSYCHIATRIC Hx Anxiety: Yes Hx Depression: Yes Hx Substance Use: No - SURGICAL HISTORY Hx Appendectomy: Yes Hx Cholecystectomy: Yes (1975) Hx Coronary Stent: Yes (3) - ANESTHESIA Hx Anesthesia: Yes Hx Anesthesia Reactions: No Hx Malignant Hyperthermia: No Meds Allergies/Adverse Reactions: Allergies Allergy/AdvReac Type Severity Reaction Status Date / Time No Known Allergies Allergy Verified 03/04/18 20:13 - Medications Medications: Current Medications Acetaminophen (Tylenol 325mg Tab) 650 mg PO Q4 PRN PRN Reason: Pain, Mild (1-3) Last Admin: 03/04/18 21:33 Dose: 650 mg Alprazolam (Xanax) 0.5 mg PO Q8H PRN PRN Reason: Anxiety Last Admin: 03/05/18 03:51 Dose: 0.5 mg Dextrose (Dextrose 50% Inj) 0 ml IV STAT PRN; Protocol PRN Reason: Hypoglycemia Protocol Dextrose (Glutose 15) 0 gm PO ONCE PRN; Protocol PRN Reason: Hypoglycemia Protocol Fluoxetine HCl (Prozac) 10 mg PO DAILY [facility] Last Admin: 03/05/18 10:09 Dose: Not Given Gabapentin (Neurontin) 300 mg PO BID [facility] Last Admin: 03/05/18 10:09 Dose: Not Given Glucagon (Glucagen Diagnostic Kit) 0 mg IM STAT PRN; Protocol PRN Reason: Hypoglycemia Protocol Sodium Chloride (Sodium Chloride 0.9%) 1,000 mls @ 100 mls/hr IV .Q10H [facility] Last Admin: 03/05/18 09:57 Dose: 100 mls/hr Cefepime HCl (Maxipime Iv 1 Gm Premix) 1 gm in 50 mls @ 100 mls/hr IVPB Q24H [facility]; Protocol Last Admin: 03/05/18 09:56 Dose: 100 mls/hr Sodium Chloride (Sodium Chloride 0.9%) 1,000 mls @ 100 mls/hr IV .Q10H [facility] Dextrose (Dextrose 5% In Water 1000 Ml) 1,000 mls @ 0 mls/hr IV .Q0M PRN; Protocol PRN Reason: Hypoglycemia Protocol Acetaminophen (Ofirmev) 100 mls @ 400 mls/hr IV ONCE ONE Stop: 03/05/18 15:44 Insulin Human Regular (Novolin R) 0 unit SC ACHS [facility]AD; Protocol Last Admin: 03/05/18 13:49 Dose: 6 unit Physical Exam - Constitutional Appears: Confused, Chronically Ill - Head Exam Head Exam: ATRAUMATIC, NORMAL INSPECTION - Eye Exam Eye Exam: EOMI, Normal appearance - Neck Exam Neck exam: Positive for: Normal Inspection. Negative for: Tenderness - Respiratory Exam Respiratory Exam: Clear to Auscultation Bilateral, NORMAL BREATHING PATTERN - Cardiovascular Exam Cardiovascular Exam: REGULAR RHYTHM, +S1 - GI/Abdominal Exam GI & Abdominal Exam: Distended. absent: Tenderness - Extremities Exam Extremities exam: Positive for: normal inspection, pedal edema - Neurological Exam Neurological exam: Altered, CN II-XII Intact - Skin Skin Exam: Dry, Warm Results - Vital Signs Recent Vital Signs: Last Vital Signs Temp 100.8 F H 03/05/18 14:00 Pulse 86 03/05/18 15:00 Resp 19 03/05/18 15:00 BP 119/41 L 03/05/18 15:00 Pulse Ox 100 03/05/18 15:00 - Labs Result Diagrams: 03/05/18 07:40 03/05/18 07:40 Labs: Laboratory Results - last 24 hr 03/04/18 03/04/18 03/04/18 15:30 15:30 16:14 WBC 23.8 H D RBC 3.09 L Hgb 8.6 L D Hct 27.2 L MCV 88.0 MCH 27.8 MCHC 31.6 L RDW 14.8 H Plt Count 361 MPV 7.8 Neut % (Auto) 91.1 H Lymph % (Auto) 2.2 L [place] % (Auto) 6.2 Eos % (Auto) 0.0 Baso % (Auto) 0.5 Neut # (Auto) 21.7 H Lymph # (Auto) 0.5 L [place] # (Auto) 1.5 H Eos # (Auto) 0.0 Baso # (Auto) 0.1 Neutrophils % (Manual) 89 H Band Neutrophils % 1 Lymphocytes % (Manual) 5 L Monocytes % (Manual) 5 Platelet Estimate Normal Polychromasia Slight Hypochromasia (manual) Slight pO2 VBG pH VBG pCO2 VBG HCO3 VBG Total CO2 VBG O2 Sat (Calc) VBG Base Excess VBG Potassium Glucose Lactate Sodium 129 L Potassium 3.9 Chloride 88 L Carbon Dioxide 28 Anion Gap 17 BUN 75 H Creatinine 2.9 H Est GFR ( Amer) 19 Est GFR (Non-Af Amer) 16 POC Glucose (mg/dL) Random Glucose 241 H D Calcium 8.2 L Phosphorus Magnesium Total Bilirubin 0.4 AST 21 ALT 9 Alkaline Phosphatase 82 Total Protein 7.4 Albumin 3.7 Globulin 3.7 Albumin/Globulin Ratio 1.0 Lipase 30 Venous Blood Potassium Urine Color Yellow Urine Clarity Turbid Urine pH 7.0 Ur Specific [place] 1.012 Urine Protein 3+ H Urine Glucose (UA) Normal Urine Ketones Trace Urine Blood 1+ H Urine Nitrate Negative Urine Bilirubin Negative Urine Urobilinogen 2.0 H Ur Leukocyte Esterase 2+ H Urine WBC (Auto) 147 H Urine RBC (Auto) 5 H Ur Squamous Epith Cells 1 Amorphous Sediment Few H Urine Bacteria Mod H 03/04/18 03/04/18 03/05/18 20:45 22:04 01:57 WBC RBC Hgb Hct MCV MCH MCHC RDW Plt Count MPV Neut % (Auto) Lymph % (Auto) [place] % (Auto) Eos % (Auto) Baso % (Auto) Neut # (Auto) Lymph # (Auto) [place] # (Auto) Eos # (Auto) Baso # (Auto) Neutrophils % (Manual) Band Neutrophils % Lymphocytes % (Manual) Monocytes % (Manual) Platelet Estimate Polychromasia Hypochromasia (manual) pO2 23 L VBG pH 7.33 VBG pCO2 48 VBG HCO3 22.4 VBG Total CO2 26.8 VBG O2 Sat (Calc) 45.3 VBG Base Excess -1.1 L VBG Potassium 4.2 Glucose 328 H Lactate 1.9 Sodium 132.0 Potassium Chloride 94.0 L Carbon Dioxide Anion Gap BUN Creatinine Est GFR ( Amer) Est GFR (Non-Af Amer) POC Glucose (mg/dL) 315 H 304 H Random Glucose Calcium Phosphorus Magnesium Total Bilirubin AST ALT Alkaline Phosphatase Total Protein Albumin Globulin Albumin/Globulin Ratio Lipase Venous Blood Potassium 4.2 Urine Color Urine Clarity Urine pH Ur Specific [place] Urine Protein Urine Glucose (UA) Urine Ketones Urine Blood Urine Nitrate Urine Bilirubin Urine Urobilinogen Ur Leukocyte Esterase Urine WBC (Auto) Urine RBC (Auto) Ur Squamous Epith Cells Amorphous Sediment Urine Bacteria 03/05/18 03/05/18 03/05/18 06:20 07:40 07:40 WBC 19.9 H RBC 2.76 L Hgb 8.1 L Hct 24.3 L MCV 88.0 MCH 29.5 MCHC 33.5 RDW 14.9 H Plt Count 324 MPV 8.0 Neut % (Auto) 92.1 H Lymph % (Auto) 1.7 L [place] % (Auto) 5.7 Eos % (Auto) 0.0 Baso % (Auto) 0.5 Neut # (Auto) 18.4 H Lymph # (Auto) 0.3 L [place] # (Auto) 1.1 H Eos # (Auto) 0.0 Baso # (Auto) 0.1 Neutrophils % (Manual) 93 H Band Neutrophils % 2 Lymphocytes % (Manual) 1 L Monocytes % (Manual) 4 Platelet Estimate Normal Polychromasia Slight Hypochromasia (manual) Slight pO2 VBG pH VBG pCO2 VBG HCO3 VBG Total CO2 VBG O2 Sat (Calc) VBG Base Excess VBG Potassium Glucose Lactate Sodium 129 L Potassium 3.9 Chloride 90 L Carbon Dioxide 26 Anion Gap 16 BUN 72 H Creatinine 3.2 H Est GFR ( Amer) 17 Est GFR (Non-Af Amer) 14 POC Glucose (mg/dL) 325 H Random Glucose 328 H D Calcium 7.7 L Phosphorus 3.2 Magnesium 2.6 H Total Bilirubin 0.3 AST 24 ALT 15 Alkaline Phosphatase 95 Total Protein 6.9 Albumin 3.4 L Globulin 3.6 Albumin/Globulin Ratio 0.9 L Lipase Venous Blood Potassium Urine Color Urine Clarity Urine pH Ur Specific [place] Urine Protein Urine Glucose (UA) Urine Ketones Urine Blood Urine Nitrate Urine Bilirubin Urine Urobilinogen Ur Leukocyte Esterase Urine WBC (Auto) Urine RBC (Auto) Ur Squamous Epith Cells Amorphous Sediment Urine Bacteria 03/05/18 03/05/18 03/05/18 11:50 13:02 13:40 WBC RBC Hgb Hct MCV MCH MCHC RDW Plt Count MPV Neut % (Auto) Lymph % (Auto) [place] % (Auto) Eos % (Auto) Baso % (Auto) Neut # (Auto) Lymph # (Auto) [place] # (Auto) Eos # (Auto) Baso # (Auto) Neutrophils % (Manual) Band Neutrophils % Lymphocytes % (Manual) Monocytes % (Manual) Platelet Estimate Polychromasia Hypochromasia (manual) pO2 VBG pH VBG pCO2 VBG HCO3 VBG Total CO2 VBG O2 Sat (Calc) VBG Base Excess VBG Potassium Glucose Lactate Sodium Potassium Chloride Carbon Dioxide Anion Gap BUN Creatinine Est GFR ( Amer) Est GFR (Non-Af Amer) POC Glucose (mg/dL) 332 H 268 H 322 H Random Glucose Calcium Phosphorus Magnesium Total Bilirubin AST ALT Alkaline Phosphatase Total Protein Albumin Globulin Albumin/Globulin Ratio Lipase Venous Blood Potassium Urine Color Urine Clarity Urine pH Ur Specific [place] Urine Protein Urine Glucose (UA) Urine Ketones Urine Blood Urine Nitrate Urine Bilirubin Urine Urobilinogen Ur Leukocyte Esterase Urine WBC (Auto) Urine RBC (Auto) Ur Squamous Epith Cells Amorphous Sediment Urine Bacteria Assessment & Plan (1) IZZY (acute kidney injury) Status: Acute (2) Bacteremia due to Gram-negative bacteria Status: Acute (3) CKD (chronic kidney disease) Status: Acute (4) Sepsis Status: Acute (5) Renal calculus Status: Acute (6) CAD (coronary artery disease) Status: Acute (7) Bacteremia Status: Resolved Priority: High (8) UTI (urinary tract infection) Status: Resolved Priority: High - Assessment and Plan (Free Text) Plan: IV ABs IV saline hydration serial chemistries follow up for stones post ureteral stent placement
[2018-03-05 20:07] LABS: MEAN CELL VOLUME 87.7 fL (81.0-99.0); MEAN CORPUSCULAR HEMOGLOBIN 28.5 pg (27.0-31.0); MEAN CORPUSCULAR HGB CONC 32.5 g/dL (33.0-37.0); MEAN PLATELET VOLUME 7.6 fL (7.2-11.7); RBC 2.79 Mil/uL (3.80-5.20); RED CELL DISTRIBUTION WIDTH 14.9 % (11.5-14.5); WHITE BLOOD COUNT 15.7 K/uL (4.8-10.8)
--- NOTE | 2018-03-05 20:09 | CP.PCM.CON ---
History of Present Illness - History of Present Illness History of Present Illness: INFECTIOUS DISEASE CONSULTATION INGA MENG MD, FACP PACU 03/05/2018 CHART REVIEWED PT EXAMINED CASE DISCUSSED INFECTIOUS DISEASE CONSULTATION 2ND UROSEPSIS AND 3 SETS OF BLOOD CULTURES DEMONSTRATING GRAM NEGATIVE RODS HPI: 72 y/o female with PMHx of CAD (s/p 3 stents), CHF, ANEMIA - UNDER DR DIEGO'S MEDICAL SERVICE, SHILPA, PVD, HTN, DM, depression, anxiety, AND CKD - SHE is now s/p L uteral stent insertion by Dr. Brian Cooney today POD0. Admitted due to increased abd pain, nausea/vomiting on 03/04. Found to have L hydronephrosis, UTI and urolithiasis pre-op, and elevated creatinine. Has been febrile pre-op; now temps increased to 102, AND Has GNR bacteremia, WITH UTI. Noted to have increasing azotemia since 03/04. Post op, being transferred to ICU for observation. Patient states she is not in pain post-op. Was hypotensive in OR, now better with IV fluid rescuscitation. However, vitals rechecked in the PACU on evaluation were now T102, P86, BP increased to 120/57 (was lower per RN), RR 18. Patient was seen on 4L [place] O2 sat at 100%. Patient denies being on any home oxygen. PMH: as stated above PSH: s/p L uteral stent insertion by Dr. Brian Cooney today POD0. 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 Lives in [place] No family around. She states her POC is Oscar Box, a nurse, is her friend. Meds: see MAR Allergies: PCN Review of Systems - Review of Systems Systems not reviewed;Unavailable: Unstable Vital Signs Past Patient History - Infectious Disease Hx of Infectious Diseases: None - Past Medical History & Family History Past Medical History?: Yes Past Family History: Reviewed and not pertinent - Past Social History Smoking Status: Former Smoker Chewing Tobacco Use: No Cigar Use: No Alcohol: None Drugs: Denies Home Situation {Lives}: [place] - CARDIAC Hx Cardiac Disorders: Yes Hx Hypercholesterolemia: Yes Hx Hypertension: Yes Hx Peripheral Edema: Yes - PULMONARY Hx Respiratory Disorders: No - NEUROLOGICAL Hx Neurological Disorder: No - HEENT Hx HEENT Problems: Yes Hx Cataracts: Yes - RENAL Hx Chronic Kidney Disease: No - ENDOCRINE/METABOLIC Hx Endocrine Disorders: Yes Hx Diabetes Mellitus Type 1: Yes - HEMATOLOGICAL/ONCOLOGICAL Hx Blood Disorders: No - INTEGUMENTARY Hx Dermatological Problems: No - MUSCULOSKELETAL/RHEUMATOLOGICAL Hx Arthritis: Yes (R HIP; B/L KNEE R>L; LB) - GASTROINTESTINAL Hx Gastrointestinal Disorders: Yes Hx Irritable Bowel: Yes Other/Comment: HX: DYSPHAGIA - GENITOURINARY/GYNECOLOGICAL Hx Genitourinary Disorders: Yes Hx Uterine Cancer: Yes (hysterectomy 2007) - PSYCHIATRIC Hx Anxiety: Yes Hx Depression: Yes Hx Substance Use: No - SURGICAL HISTORY Hx Appendectomy: Yes Hx Cholecystectomy: Yes (1975) Hx Coronary Stent: Yes (3) - ANESTHESIA Hx Anesthesia: Yes Hx Anesthesia Reactions: No Hx Malignant Hyperthermia: No Meds Allergies/Adverse Reactions: Allergies Allergy/AdvReac Type Severity Reaction Status Date / Time No Known Allergies Allergy Verified 03/04/18 20:13 - Medications Medications: Current Medications Acetaminophen (Tylenol 325mg Tab) 650 mg PO Q4 PRN PRN Reason: Pain, Mild (1-3) Last Admin: 03/04/18 21:33 Dose: 650 mg Alprazolam (Xanax) 0.5 mg PO Q8H PRN PRN Reason: Anxiety Last Admin: 03/05/18 03:51 Dose: 0.5 mg Dextrose (Dextrose 50% Inj) 0 ml IV STAT PRN; Protocol PRN Reason: Hypoglycemia Protocol Dextrose (Glutose 15) 0 gm PO ONCE PRN; Protocol PRN Reason: Hypoglycemia Protocol Fluoxetine HCl (Prozac) 10 mg PO DAILY [facility]ENDING S[facility] TO [facility] Last Admin: 03/05/18 10:09 Dose: Not Given Gabapentin (Neurontin) 300 mg PO BID PENDING S[facility] TO [facility] Last Admin: 03/05/18 10:09 Dose: Not Given Glucagon (Glucagen Diagnostic Kit) 0 mg IM STAT PRN; Protocol PRN Reason: Hypoglycemia Protocol Sodium Chloride (Sodium Chloride 0.9%) 1,000 mls @ 100 mls/hr IV .Q10H PENDING SALE TO [facility] Last Admin: 03/05/18 09:57 Dose: 100 mls/hr Cefepime HCl (Maxipime Iv 1 Gm Premix) 1 gm in 50 mls @ 100 mls/hr IVPB Q24H [facility]; Protocol Last Admin: 03/05/18 09:56 Dose: 100 mls/hr Sodium Chloride (Sodium Chloride 0.9%) 1,000 mls @ 100 mls/hr IV .Q10H [facility] Dextrose (Dextrose 5% In Water 1000 Ml) 1,000 mls @ 0 mls/hr IV .Q0M PRN; Protocol PRN Reason: Hypoglycemia Protocol Acetaminophen (Ofirmev) 100 mls @ 400 mls/hr IV ONCE ONE Stop: 03/05/18 15:44 Insulin Human Regular (Novolin R) 0 unit SC ACHS [facility]; Protocol Last Admin: 03/05/18 13:49 Dose: 6 unit Physical Exam - Constitutional Appears: Confused, Chronically Ill - Head Exam Head Exam: ATRAUMATIC, NORMAL INSPECTION - Eye Exam Eye Exam: EOMI, Normal appearance - Neck Exam Neck exam: Positive for: Normal Inspection. Negative for: Tenderness - Respiratory Exam Respiratory Exam: Clear to Auscultation Bilateral, NORMAL BREATHING PATTERN - Cardiovascular Exam Cardiovascular Exam: REGULAR RHYTHM, +S1 - GI/Abdominal Exam GI & Abdominal Exam: Distended. absent: Tenderness - Extremities Exam Extremities exam: Positive for: normal inspection, pedal edema - Neurological Exam Neurological exam: Altered, CN II-XII Intact - Skin Skin Exam: Dry, Warm Results - Vital Signs Recent Vital Signs: Last Vital Signs Temp 100.8 F H 03/05/18 14:00 Pulse 86 03/05/18 15:00 Resp 19 03/05/18 15:00 BP 119/41 L 03/05/18 15:00 Pulse Ox 100 03/05/18 15:00 - Labs Result Diagrams: 03/05/18 07:40 03/05/18 07:40 Labs: Laboratory Results - last 24 hr 03/04/18 03/04/18 03/04/18 15:30 15:30 16:14 WBC 23.8 H D RBC 3.09 L Hgb 8.6 L D Hct 27.2 L MCV 88.0 MCH 27.8 MCHC 31.6 L RDW 14.8 H Plt Count 361 MPV 7.8 Neut % (Auto) 91.1 H Lymph % (Auto) 2.2 L Sunflower % (Auto) 6.2 Eos % (Auto) 0.0 Baso % (Auto) 0.5 Neut # (Auto) 21.7 H Lymph # (Auto) 0.5 L Sunflower # (Auto) 1.5 H Eos # (Auto) 0.0 Baso # (Auto) 0.1 Neutrophils % (Manual) 89 H Band Neutrophils % 1 Lymphocytes % (Manual) 5 L Monocytes % (Manual) 5 Platelet Estimate Normal Polychromasia Slight Hypochromasia (manual) Slight pO2 VBG pH VBG pCO2 VBG HCO3 VBG Total CO2 VBG O2 Sat (Calc) VBG Base Excess VBG Potassium Glucose Lactate Sodium 129 L Potassium 3.9 Chloride 88 L Carbon Dioxide 28 Anion Gap 17 BUN 75 H Creatinine 2.9 H Est GFR ( Amer) 19 Est GFR (Non-Af Amer) 16 POC Glucose (mg/dL) Random Glucose 241 H D Calcium 8.2 L Phosphorus Magnesium Total Bilirubin 0.4 AST 21 ALT 9 Alkaline Phosphatase 82 Total Protein 7.4 Albumin 3.7 Globulin 3.7 Albumin/Globulin Ratio 1.0 Lipase 30 Venous Blood Potassium Urine Color Yellow Urine Clarity Turbid Urine pH 7.0 Ur Specific [place] 1.012 Urine Protein 3+ H Urine Glucose (UA) Normal Urine Ketones Trace Urine Blood 1+ H Urine Nitrate Negative Urine Bilirubin Negative Urine Urobilinogen 2.0 H Ur Leukocyte Esterase 2+ H Urine WBC (Auto) 147 H Urine RBC (Auto) 5 H Ur Squamous Epith Cells 1 Amorphous Sediment Few H Urine Bacteria Mod H 03/04/18 03/04/18 03/05/18 20:45 22:04 01:57 WBC RBC Hgb Hct MCV MCH MCHC RDW Plt Count MPV Neut % (Auto) Lymph % (Auto) Sunflower % (Auto) Eos % (Auto) Baso % (Auto) Neut # (Auto) Lymph # (Auto) Sunflower # (Auto) Eos # (Auto) Baso # (Auto) Neutrophils % (Manual) Band Neutrophils % Lymphocytes % (Manual) Monocytes % (Manual) Platelet Estimate Polychromasia Hypochromasia (manual) pO2 23 L VBG pH 7.33 VBG pCO2 48 VBG HCO3 22.4 VBG Total CO2 26.8 VBG O2 Sat (Calc) 45.3 VBG Base Excess -1.1 L VBG Potassium 4.2 Glucose 328 H Lactate 1.9 Sodium 132.0 Potassium Chloride 94.0 L Carbon Dioxide Anion Gap BUN Creatinine Est GFR ( Amer) Est GFR (Non-Af Amer) POC Glucose (mg/dL) 315 H 304 H Random Glucose Calcium Phosphorus Magnesium Total Bilirubin AST ALT Alkaline Phosphatase Total Protein Albumin Globulin Albumin/Globulin Ratio Lipase Venous Blood Potassium 4.2 Urine Color Urine Clarity Urine pH Ur Specific [place] Urine Protein Urine Glucose (UA) Urine Ketones Urine Blood Urine Nitrate Urine Bilirubin Urine Urobilinogen Ur Leukocyte Esterase Urine WBC (Auto) Urine RBC (Auto) Ur Squamous Epith Cells Amorphous Sediment Urine Bacteria 03/05/18 03/05/18 03/05/18 06:20 07:40 07:40 WBC 19.9 H RBC 2.76 L Hgb 8.1 L Hct 24.3 L MCV 88.0 MCH 29.5 MCHC 33.5 RDW 14.9 H Plt Count 324 MPV 8.0 Neut % (Auto) 92.1 H Lymph % (Auto) 1.7 L Sunflower % (Auto) 5.7 Eos % (Auto) 0.0 Baso % (Auto) 0.5 Neut # (Auto) 18.4 H Lymph # (Auto) 0.3 L Sunflower # (Auto) 1.1 H Eos # (Auto) 0.0 Baso # (Auto) 0.1 Neutrophils % (Manual) 93 H Band Neutrophils % 2 Lymphocytes % (Manual) 1 L Monocytes % (Manual) 4 Platelet Estimate Normal Polychromasia Slight Hypochromasia (manual) Slight pO2 VBG pH VBG pCO2 VBG HCO3 VBG Total CO2 VBG O2 Sat (Calc) VBG Base Excess VBG Potassium Glucose Lactate Sodium 129 L Potassium 3.9 Chloride 90 L Carbon Dioxide 26 Anion Gap 16 BUN 72 H Creatinine 3.2 H Est GFR ( Amer) 17 Est GFR (Non-Af Amer) 14 POC Glucose (mg/dL) 325 H Random Glucose 328 H D Calcium 7.7 L Phosphorus 3.2 Magnesium 2.6 H Total Bilirubin 0.3 AST 24 ALT 15 Alkaline Phosphatase 95 Total Protein 6.9 Albumin 3.4 L Globulin 3.6 Albumin/Globulin Ratio 0.9 L Lipase Venous Blood Potassium Urine Color Urine Clarity Urine pH Ur Specific [place] Urine Protein Urine Glucose (UA) Urine Ketones Urine Blood Urine Nitrate Urine Bilirubin Urine Urobilinogen Ur Leukocyte Esterase Urine WBC (Auto) Urine RBC (Auto) Ur Squamous Epith Cells Amorphous Sediment Urine Bacteria 03/05/18 03/05/18 03/05/18 11:50 13:02 13:40 WBC RBC Hgb Hct MCV MCH MCHC RDW Plt Count MPV Neut % (Auto) Lymph % (Auto) Sunflower % (Auto) Eos % (Auto) Baso % (Auto) Neut # (Auto) Lymph # (Auto) Sunflower # (Auto) Eos # (Auto) Baso # (Auto) Neutrophils % (Manual) Band Neutrophils % Lymphocytes % (Manual) Monocytes % (Manual) Platelet Estimate Polychromasia Hypochromasia (manual) pO2 VBG pH VBG pCO2 VBG HCO3 VBG Total CO2 VBG O2 Sat (Calc) VBG Base Excess VBG Potassium Glucose Lactate Sodium Potassium Chloride Carbon Dioxide Anion Gap BUN Creatinine Est GFR ( Amer) Est GFR (Non-Af Amer) POC Glucose (mg/dL) 332 H 268 H 322 H Random Glucose Calcium Phosphorus Magnesium Total Bilirubin AST ALT Alkaline Phosphatase Total Protein Albumin Globulin Albumin/Globulin Ratio Lipase Venous Blood Potassium Urine Color Urine Clarity Urine pH Ur Specific [place] Urine Protein Urine Glucose (UA) Urine Ketones Urine Blood Urine Nitrate Urine Bilirubin Urine Urobilinogen Ur Leukocyte Esterase Urine WBC (Auto) Urine RBC (Auto) Ur Squamous Epith Cells Amorphous Sediment Urine Bacteria Assessment & Plan (1) IZZY (acute kidney injury) Status: Acute (2) Bacteremia due to Gram-negative bacteria Status: Acute (3) CKD (chronic kidney disease) Status: Acute (4) Sepsis Status: Acute (5) Renal calculus Status: Acute (6) CAD (coronary artery disease) Status: Acute (7) Bacteremia Status: ACUTE Priority: High (8) UTI (urinary tract infection) Status: ACUTE Priority: High - Assessment and Plan (Free Text) Plan: IV ABs - SEE MY RECOMMENDATIONS FOR AGGRESSIVE ANTIBIOTIC TREATMENTS IV saline hydration serial chemistries follow up for stones post ureteral stent placement AWAITING C/S IDENTIFICATION FROM MICROBIOLOGY... CALL ME FOR ANY SIGNIFICANT MEDICAL OR LAB FINDINGS/CHANGE. INGA MENG MD, FACP Past Patient History - Infectious Disease Hx of Infectious Diseases: None - Past Medical History & Family History Past Medical History?: Yes Past Family History: Reviewed and not pertinent - Past Social History Smoking Status: Former Smoker Chewing Tobacco Use: No Cigar Use: No Alcohol: None Drugs: Denies Home Situation {Lives}: [place] - CARDIAC Hx Cardiac Disorders: Yes Hx Hypercholesterolemia: Yes Hx Hypertension: Yes Hx Peripheral Edema: Yes - PULMONARY Hx Respiratory Disorders: No - NEUROLOGICAL Hx Neurological Disorder: No - HEENT Hx HEENT Problems: Yes Hx Cataracts: Yes - RENAL Hx Chronic Kidney Disease: No - ENDOCRINE/METABOLIC Hx Endocrine Disorders: Yes Hx Diabetes Mellitus Type 1: Yes - HEMATOLOGICAL/ONCOLOGICAL Hx Blood Disorders: No - INTEGUMENTARY Hx Dermatological Problems: No - MUSCULOSKELETAL/RHEUMATOLOGICAL Hx Arthritis: Yes (R HIP; B/L KNEE R>L; LB) - GASTROINTESTINAL Hx Gastrointestinal Disorders: Yes Hx Irritable Bowel: Yes Other/Comment: HX: DYSPHAGIA - GENITOURINARY/GYNECOLOGICAL Hx Genitourinary Disorders: Yes Hx Uterine Cancer: Yes (hysterectomy 2007) - PSYCHIATRIC Hx Anxiety: Yes Hx Depression: Yes Hx Substance Use: No - SURGICAL HISTORY Hx Appendectomy: Yes Hx Cholecystectomy: Yes (1975) Hx Coronary Stent: Yes (3) - ANESTHESIA Hx Anesthesia: Yes Hx Anesthesia Reactions: No Hx Malignant Hyperthermia: No Meds Allergies/Adverse Reactions: Allergies Allergy/AdvReac Type Severity Reaction Status Date / Time No Known Allergies Allergy Verified 03/04/18 20:13 - Medications Medications: Current Medications Acetaminophen (Tylenol 325mg Tab) 650 mg PO Q4 PRN PRN Reason: Pain, Mild (1-3) Last Admin: 03/04/18 21:33 Dose: 650 mg Alprazolam (Xanax) 0.5 mg PO Q8H PRN PRN Reason: Anxiety Last Admin: 03/05/18 03:51 Dose: 0.5 mg Dextrose (Dextrose 50% Inj) 0 ml IV STAT PRN; Protocol PRN Reason: Hypoglycemia Protocol Dextrose (Glutose 15) 0 gm PO ONCE PRN; Protocol PRN Reason: Hypoglycemia Protocol Fluoxetine HCl (Prozac) 10 mg PO DAILY PENDING SALE TO [facility] Last Admin: 03/05/18 10:09 Dose: Not Given Gabapentin (Neurontin) 300 mg PO BID PENDING S[facility] Last Admin: 03/05/18 10:09 Dose: Not Given Glucagon (Glucagen Diagnostic Kit) 0 mg IM STAT PRN; Protocol PRN Reason: Hypoglycemia Protocol Sodium Chloride (Sodium Chloride 0.9%) 1,000 mls @ 100 mls/hr IV .Q10H [facility] Last Admin: 03/05/18 09:57 Dose: 100 mls/hr Cefepime HCl (Maxipime Iv 1 Gm Premix) 1 gm in 50 mls @ 100 mls/hr IVPB Q24H [facility]; Protocol Last Admin: 03/05/18 09:56 Dose: 100 mls/hr Sodium Chloride (Sodium Chloride 0.9%) 1,000 mls @ 100 mls/hr IV .Q10H [facility] Dextrose (Dextrose 5% In Water 1000 Ml) 1,000 mls @ 0 mls/hr IV .Q0M PRN; Protocol PRN Reason: Hypoglycemia Protocol Sodium Chloride (Sodium Chloride 0.9%) 1,000 mls @ 75 mls/hr IV .[id number] [facility] Insulin Human Regular (Novolin R) 0 unit SC ACHS [facility]; Protocol Last Admin: 03/05/18 16:25 Dose: 4 unit Results - Vital Signs Recent Vital Signs: Last Vital Signs Temp 101 F H 03/05/18 17:00 Pulse 76 03/05/18 17:00 Resp 16 03/05/18 17:00 BP 115/54 L 03/05/18 17:00 Pulse Ox 99 03/05/18 17:00 - Labs Result Diagrams: 03/05/18 07:40 03/05/18 07:40 Labs: Laboratory Results - last 24 hr 03/04/18 03/04/18 03/05/18 20:45 22:04 01:57 WBC RBC Hgb Hct MCV MCH MCHC RDW Plt Count MPV Neut % (Auto) Lymph % (Auto) Sunflower % (Auto) Eos % (Auto) Baso % (Auto) Neut # (Auto) Lymph # (Auto) Sunflower # (Auto) Eos # (Auto) Baso # (Auto) Neutrophils % (Manual) Band Neutrophils % Lymphocytes % (Manual) Monocytes % (Manual) Platelet Estimate Polychromasia Hypochromasia (manual) pO2 23 L VBG pH 7.33 VBG pCO2 48 VBG HCO3 22.4 VBG Total CO2 26.8 VBG O2 Sat (Calc) 45.3 VBG Base Excess -1.1 L VBG Potassium 4.2 Sodium 132.0 Chloride 94.0 L Glucose 328 H Lactate 1.9 Potassium Carbon Dioxide Anion Gap BUN Creatinine Est GFR ( Amer) Est GFR (Non-Af Amer) POC Glucose (mg/dL) 315 H 304 H Random Glucose Calcium Phosphorus Magnesium Total Bilirubin AST ALT Alkaline Phosphatase Total Protein Albumin Globulin Albumin/Globulin Ratio Venous Blood Potassium 4.2 03/05/18 03/05/1819 06:20 07:40 07:40 WBC 19.9 H RBC 2.76 L Hgb 8.1 L Hct 24.3 L MCV 88.0 MCH 29.5 MCHC 33.5 RDW 14.9 H Plt Count 324 MPV 8.0 Neut % (Auto) 92.1 H Lymph % (Auto) 1.7 L Sunflower % (Auto) 5.7 Eos % (Auto) 0.0 Baso % (Auto) 0.5 Neut # (Auto) 18.4 H Lymph # (Auto) 0.3 L Sunflower # (Auto) 1.1 H Eos # (Auto) 0.0 Baso # (Auto) 0.1 Neutrophils % (Manual) 93 H Band Neutrophils % 2 Lymphocytes % (Manual) 1 L Monocytes % (Manual) 4 Platelet Estimate Normal Polychromasia Slight Hypochromasia (manual) Slight pO2 VBG pH VBG pCO2 VBG HCO3 VBG Total CO2 VBG O2 Sat (Calc) VBG Base Excess VBG Potassium Sodium 129 L Chloride 90 L Glucose Lactate Potassium 3.9 Carbon Dioxide 26 Anion Gap 16 BUN 72 H Creatinine 3.2 H Est GFR ( Amer) 17 Est GFR (Non-Af Amer) 14 POC Glucose (mg/dL) 325 H Random Glucose 328 H D Calcium 7.7 L Phosphorus 3.2 Magnesium 2.6 H Total Bilirubin 0.3 AST 24 ALT 15 Alkaline Phosphatase 95 Total Protein 6.9 Albumin 3.4 L Globulin 3.6 Albumin/Globulin Ratio 0.9 L Venous Blood Potassium 03/05/18 03/05/18 03/05/18 11:50 13:02 13:40 WBC RBC Hgb Hct MCV MCH MCHC RDW Plt Count MPV Neut % (Auto) Lymph % (Auto) Sunflower % (Auto) Eos % (Auto) Baso % (Auto) Neut # (Auto) Lymph # (Auto) Sunflower # (Auto) Eos # (Auto) Baso # (Auto) Neutrophils % (Manual) Band Neutrophils % Lymphocytes % (Manual) Monocytes % (Manual) Platelet Estimate Polychromasia Hypochromasia (manual) pO2 VBG pH VBG pCO2 VBG HCO3 VBG Total CO2 VBG O2 Sat (Calc) VBG Base Excess VBG Potassium Sodium Chloride Glucose Lactate Potassium Carbon Dioxide Anion Gap BUN Creatinine Est GFR ( Amer) Est GFR (Non-Af Amer) POC Glucose (mg/dL) 332 H 268 H 322 H Random Glucose Calcium Phosphorus Magnesium Total Bilirubin AST ALT Alkaline Phosphatase Total Protein Albumin Globulin Albumin/Globulin Ratio Venous Blood Potassium 03/05/18 16:13 WBC RBC Hgb Hct MCV MCH MCHC RDW Plt Count MPV Neut % (Auto) Lymph % (Auto) Sunflower % (Auto) Eos % (Auto) Baso % (Auto) Neut # (Auto) Lymph # (Auto) Sunflower # (Auto) Eos # (Auto) Baso # (Auto) Neutrophils % (Manual) Band Neutrophils % Lymphocytes % (Manual) Monocytes % (Manual) Platelet Estimate Polychromasia Hypochromasia (manual) pO2 VBG pH VBG pCO2 VBG HCO3 VBG Total CO2 VBG O2 Sat (Calc) VBG Base Excess VBG Potassium Sodium Chloride Glucose Lactate Potassium Carbon Dioxide Anion Gap BUN Creatinine Est GFR ( Amer) Est GFR (Non-Af Amer) POC Glucose (mg/dL) 296 H Random Glucose Calcium Phosphorus Magnesium Total Bilirubin AST ALT Alkaline Phosphatase Total Protein Albumin Globulin Albumin/Globulin Ratio Venous Blood Potassium
[2018-03-05 20:19] LABS: ALB/GLOB RATIO 0.9 (1.0-2.1); ALBUMIN 3.3 g/dL (3.5-5.0); CALCIUM 7.7 mg/dl (8.6-10.4)
[2018-03-06] MEDS ORDERED: Vancomycin 750mg/NS 150 ml 150 ML IVPB ONE
[2018-03-06] MEDS: Sodium Chloride 0.9% 1,000 ML IV SCH (07:15)
[2018-03-06 07:19] LABS: BASO # 0.1 K/uL (0.0-0.2); BASO % 0.5 % (0.0-2.0); EOS % 0.3 % (0.0-4.0); HEMOGLOBIN 7.5 g/dL (11.0-16.0); LYMPH # 0.5 K/uL (1.0-4.3); LYMPH % 3.2 % (20.0-40.0); MEAN CORPUSCULAR HEMOGLOBIN 28.6 pg (27.0-31.0); MEAN CORPUSCULAR HGB CONC 32.5 g/dL (33.0-37.0); MONO # 1.3 K/uL (0.0-0.8); MONO % 8.1 % (0.0-10.0); NEUT # 13.9 K/uL (1.8-7.0); NEUT % 87.9 % (50.0-75.0); PLATELET COUNT 302 K/uL (130-400); RBC 2.64 Mil/uL (3.80-5.20); RED CELL DISTRIBUTION WIDTH 14.7 % (11.5-14.5); WHITE BLOOD COUNT 15.8 K/uL (4.8-10.8)
[2018-03-06 07:28] LABS: ALB/GLOB RATIO 0.9 (1.0-2.1); ALBUMIN 3.2 g/dL (3.5-5.0); CALCIUM 7.6 mg/dl (8.6-10.4)
[2018-03-06] MEDS: (Novolin R) Insulin Human Regular 100 units/ml vial SC SCH ×4 (08:55→22:00)
--- NOTE | 2018-03-06 09:34 | CP.PCM.PN ---
Subjective - Date & Time of Evaluation Date of Evaluation: 03/06/18 Time of Evaluation: 09:32 - Subjective Subjective: 72 y/o female with PMHx of CAD (s/p 3 stents), CHF, SHILAP, HTN, DM, depression and anxiety is s/p L uteral stent insertion by Dr. Brian Cooney today POD0. Admitted due to increased abd pain, nausea/vomiting on 03/04. Found to have L hydronephr osis, UTI and urolithiasis pre-op. Admitted under Dr. Wayne, who is covering for patient's physician Dr. Ugalde. Post op, being transferred to ICU for observation. Patient states she feels good and is not in pain. 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 However, vitals rechecked in the PACU on evaluation were T100.4, P86, BP increased to 120/57 (was lower per RN), RR 18. Patient was seen on 4L [place] O2 sat at 100%. Patient denies being on any home oxygen. PMH: as stated above PSH: s/p L uteral stent insertion by Dr. Brian Cooney today POD0. 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 [place] No family around. She states her POC is Oscar Box, a nurse, is her friend. Meds: see MAR Allergies: PCN 03/06/18 Notes reviewed Out of icu Awake and responsive Generalized weakness and fatigue Tolerating light diet, needs help with movements to adjust herself No specific pain No fever or chills reported Remains on iv abx and ivf No dysuria reported No sob or cough, no cp or palp 10 point ros negative other than stated above Objective - Vital Signs/Intake and Output Vital Signs (last 24 hours): Temp Pulse Resp BP Pulse Ox 99.8 F H 82 20 138/66 96 03/06/18 07:59 03/06/18 07:59 03/06/18 07:59 03/06/18 07:59 03/06/18 07:59 Intake and Output: 03/06/18 03/06/18 06:59 18:59 Intake Total 915 Output Total 850 Balance 65 - Medications Medications: Current Medications Acetaminophen (Tylenol 325mg Tab) 650 mg PO Q4 PRN PRN Reason: Pain, Mild (1-3) Last Admin: 03/04/18 21:33 Dose: 650 mg Alprazolam (Xanax) 0.5 mg PO Q8H PRN PRN Reason: Anxiety Last Admin: 03/05/18 03:51 Dose: 0.5 mg Dextrose (Dextrose 50% Inj) 0 ml IV STAT PRN; Protocol PRN Reason: Hypoglycemia Protocol Dextrose (Glutose 15) 0 gm PO ONCE PRN; Protocol PRN Reason: Hypoglycemia Protocol Fluoxetine HCl (Prozac) 10 mg PO DAILY [facility] Last Admin: 03/05/18 10:09 Dose: Not Given Gabapentin (Neurontin) 300 mg PO BID [facility] Last Admin: 03/05/18 10:09 Dose: Not Given Glucagon (Glucagen Diagnostic Kit) 0 mg IM STAT PRN; Protocol PRN Reason: Hypoglycemia Protocol Sodium Chloride (Sodium Chloride 0.9%) 1,000 mls @ 100 mls/hr IV .Q10H [facility] Last Admin: 03/05/18 09:57 Dose: 100 mls/hr Cefepime HCl (Maxipime Iv 1 Gm Premix) 1 gm in 50 mls @ 100 mls/hr IVPB Q24H [facility]; Protocol Last Admin: 03/05/18 09:56 Dose: 100 mls/hr Sodium Chloride (Sodium Chloride 0.9%) 1,000 mls @ 100 mls/hr IV .Q10H [facility] Dextrose (Dextrose 5% In Water 1000 Ml) 1,000 mls @ 0 mls/hr IV .Q0M PRN; Protocol PRN Reason: Hypoglycemia Protocol Sodium Chloride (Sodium Chloride 0.9%) 1,000 mls @ 75 mls/hr IV .[id number] [facility] Last Admin: 03/06/18 07:15 Dose: 75 mls/hr Insulin Human Regular (Novolin R) 0 unit SC ACHS [facility]; Protocol Last Admin: 03/06/18 08:55 Dose: 4 unit - Labs Labs: 03/06/18 07:02 03/06/18 07:02 - Constitutional Appears: Non-toxic, No Acute Distress, Unkempt - Head Exam Head Exam: ATRAUMATIC, NORMOCEPHALIC - Eye Exam Eye Exam: EOMI, Normal appearance - ENT Exam ENT Exam: Mucous Membranes Moist, Normal Oropharynx - Neck Exam Neck Exam: absent: Lymphadenopathy, Thyromegaly - Respiratory Exam Respiratory Exam: Clear to Ausculation Bilateral. absent: Rales, Rhonchi, Wheezes - Cardiovascular Exam Cardiovascular Exam: +S1, +S2. absent: JVD, Murmur - GI/Abdominal Exam GI & Abdominal Exam: Soft, Normal Bowel Sounds Additional comments: obese abdomen - Extremities Exam Extremities Exam: Pedal Edema, Tenderness - Back Exam Back Exam: tenderness. absent: rash noted - Neurological Exam Neurological Exam: Alert, Awake, Oriented x3 - Psychiatric Exam Psychiatric exam: Normal Affect, Normal Mood - Skin Skin Exam: Dry, Intact Assessment and Plan (1) Anemia Status: Acute (2) IZZY (acute kidney injury) Status: Acute (3) Bacteremia due to Gram-negative bacteria Status: Acute (4) CAD (coronary artery disease) Status: Acute (5) CKD (chronic kidney disease) Status: Acute (6) Renal calculus Status: Acute (7) Sepsis Status: Acute - Assessment and Plan (Free Text) Assessment: Renal function stable IZZY due to gram negative sepsis Hold ivf for hyponatremia, check geovany osm and serum osm Abx as ordered Bp stable Continue current care otherwise Await urology follow up
[2018-03-06 09:55] LABS: LYMPHOCYTE 3 % (20-40); MONOCYTE 7 % (0-10); NEUTROPHIL 90 % (50-75); PLATELET ESTIMATE NORMAL (NORMAL); TOTAL CELLS COUNTED 100
[2018-03-06 09:56] LABS: ANISOCYTOSIS SLIGHT; GIANT PLATELETS PRESENT; HYPOCHROMIC SLIGHT; LARGE PLATELETS PRESENT; POLYCHROMIC SLIGHT
[2018-03-06] MEDS: Cefepime IV 1 gm in Dextrose 1 GM/50 ML BAG IVPB SCH (10:40)
--- NOTE | 2018-03-06 13:24 | PCM.SURG1 ---
Surgeon's Initial Post Op Note - Surgeon's Notes Surgeon: adin Washtub Worker Helper: non Pre-Operative Diagnosis: sepsis Operative Findings: none Post-Operative Diagnosis: sepsis Operation Performed: The triple-lumen catheter was inserted Specimen/Specimens Removed: none Estimated Blood Loss: EBL {In ML}: 0 Date of Surgery/Procedure: 03/06/18 Time of Surgery/Procedure: 13:23
--- NOTE | 2018-03-06 13:25 | CP.PCM.PN ---
Subjective - Date & Time of Evaluation Date of Evaluation: 03/06/18 Time of Evaluation: 13:24 - Subjective Subjective: Procedure note. Emergency triple-lumen catheter was inserted through the left internal jugular vein with the guidance of sonogram. Consent from the patient. Indication for venous access. Patient will need a blood transition also and antibiotic infusion. Under aseptic condition left internal jugular vein verified and a triple-lumen catheter was inserted without any problems. Chest x-ray ordered. Patient clinically stable Objective - Vital Signs/Intake and Output Vital Signs (last 24 hours): Temp Pulse Resp BP Pulse Ox 99.8 F H 82 20 138/66 96 03/06/18 07:59 03/06/18 07:59 03/06/18 07:59 03/06/18 07:59 03/06/18 07:59 Intake and Output: 03/06/18 03/06/18 06:59 18:59 Intake Total 915 Output Total 850 Balance 65 - Medications Medications: Current Medications Acetaminophen (Tylenol 325mg Tab) 650 mg PO Q4 PRN PRN Reason: Pain, Mild (1-3) Last Admin: 03/04/18 21:33 Dose: 650 mg Alprazolam (Xanax) 0.5 mg PO Q8H PRN PRN Reason: Anxiety Last Admin: 03/05/18 03:51 Dose: 0.5 mg Dextrose (Dextrose 50% Inj) 0 ml IV STAT PRN; Protocol PRN Reason: Hypoglycemia Protocol Dextrose (Glutose 15) 0 gm PO ONCE PRN; Protocol PRN Reason: Hypoglycemia Protocol Fluoxetine HCl (Prozac) 10 mg PO DAILY [facility] Last Admin: 03/06/18 10:40 Dose: 10 mg Gabapentin (Neurontin) 300 mg PO BID [facility] Last Admin: 03/06/18 10:39 Dose: 300 mg Glucagon (Glucagen Diagnostic Kit) 0 mg IM STAT PRN; Protocol PRN Reason: Hypoglycemia Protocol Cefepime HCl (Maxipime Iv 1 Gm Premix) 1 gm in 50 mls @ 100 mls/hr IVPB Q24H [facility]; Protocol Last Admin: 03/06/18 10:40 Dose: 100 mls/hr Insulin Human Regular (Novolin R) 0 unit SC ACHS [facility]; Protocol Last Admin: 03/06/18 08:55 Dose: 4 unit - Labs Labs: 03/06/18 07:02 03/06/18 07:02
--- NOTE | 2018-03-06 13:28 | CP.PCM.PN ---
Subjective - Date & Time of Evaluation Date of Evaluation: 03/06/18 Time of Evaluation: 13:26 - Subjective Subjective: Patient today clinically seems to be better. She is alert and awake. Feeling hungry and thirsty at this time. No bowel movements yet. She denies any chest pain, minimal coughing and wheezing noted. On examination: Vital signs stable. Chest good air entry bilaterally, expiratory wheezing noted regular heart sounds. Abdomen soft nontender. Left renal angle minimal tenderness present. Pedal edema also noted. Labs reviewed Hemoglobin is 7.5. No active bleeding noted otherwise. Assessment and recommendation: 72-year-old female with history of CAD hypertension diabetes hypercholesterolemia admitted with the severe sepsis, septic shock. Improved markedly. Associated with the left hydronephrosis and renal calculi, status post stent. Emergency TLC was done today. Patient will be getting the blood transfusion. Fluid management. We will start the patient on antiplatelets and will follow the patient. Objective - Vital Signs/Intake and Output Vital Signs (last 24 hours): Temp Pulse Resp BP Pulse Ox 99.8 F H 82 20 138/66 96 03/06/18 07:59 03/06/18 07:59 03/06/18 07:59 03/06/18 07:59 03/06/18 07:59 Intake and Output: 03/06/18 03/06/18 06:59 18:59 Intake Total 915 Output Total 850 Balance 65 - Medications Medications: Current Medications Acetaminophen (Tylenol 325mg Tab) 650 mg PO Q4 PRN PRN Reason: Pain, Mild (1-3) Last Admin: 03/04/18 21:33 Dose: 650 mg Alprazolam (Xanax) 0.5 mg PO Q8H PRN PRN Reason: Anxiety Last Admin: 03/05/18 03:51 Dose: 0.5 mg Dextrose (Dextrose 50% Inj) 0 ml IV STAT PRN; Protocol PRN Reason: Hypoglycemia Protocol Dextrose (Glutose 15) 0 gm PO ONCE PRN; Protocol PRN Reason: Hypoglycemia Protocol Fluoxetine HCl (Prozac) 10 mg PO DAILY [facility] Last Admin: 03/06/18 10:40 Dose: 10 mg Gabapentin (Neurontin) 300 mg PO BID [facility] Last Admin: 03/06/18 10:39 Dose: 300 mg Glucagon (Glucagen Diagnostic Kit) 0 mg IM STAT PRN; Protocol PRN Reason: Hypoglycemia Protocol Cefepime HCl (Maxipime Iv 1 Gm Premix) 1 gm in 50 mls @ 100 mls/hr IVPB Q24H [facility]; Protocol Last Admin: 03/06/18 10:40 Dose: 100 mls/hr Insulin Human Regular (Novolin R) 0 unit SC ACHS [facility]; Protocol Last Admin: 03/06/18 08:55 Dose: 4 unit - Labs Labs: 03/06/18 07:02 03/06/18 07:02
--- NOTE | 2018-03-06 14:15 | RAD ---
HISTORY: TLC COMPARISON: Chest x-ray performed 03/04/18 TECHNIQUE: Chest, one view. FINDINGS: Examination limited by habitus. Left-sided IJ approach central venous catheter extends to the brachiocephalic/SVC junction. LUNGS: Linear atelectasis, left lung base. Please note that chest x-ray has limited sensitivity for the detection of pulmonary masses. PLEURA: No significant pleural effusion identified. No definite pneumothorax . CARDIOVASCULAR: Mild cardiomegaly. Atherosclerotic calcifications present. OSSEOUS STRUCTURES: Degenerative changes. VISUALIZED UPPER ABDOMEN: Right upper quadrant surgical clips. OTHER FINDINGS: None. IMPRESSION: Left-sided IJ approach central venous catheter extends to the brachiocephalic/SVC junction. Linear atelectasis, left lung base. Mild cardiomegaly.
[2018-03-06] MEDS ORDERED: Potassium Chloride 20 mEq ER Tab PO ONE (14:30)
[2018-03-06 15:36] LABS: OSMOLALITY,URINE 319 mosm/kg (300-1000)
--- NOTE | 2018-03-06 19:26 | CP.PCM.PN ---
Subjective - Date & Time of Evaluation Date of Evaluation: 03/06/18 Time of Evaluation: 19:22 - Subjective Subjective: INFECTIOUS DISEASE PROGRESS NOTES INGA MENG MD, FACP 5T [id number]-B 03/06/2018 CHART REVIEWED PT EXAMINED CASE DISCUSSED clinically seems to be better TODAY She is alert and awake. Feeling hungry and thirsty at this time. No bowel movements yet. She denies any chest pain, minimal coughing and wheezing noted. On examination: Vital signs stable. Chest good air entry bilaterally, expiratory wheezing noted regular heart s ounds. Abdomen soft nontender. Left renal angle minimal tenderness present. Pedal edema also noted. Labs reviewed Hemoglobin is 7.5. INTERNAL JUGLAR LINE PLACED TODAY FOR FLUIDS, ANTIBIOTICS AND BLOOD TRANSFUSION NOTIFIED TODAY THAT HER BLOOD C/S ARE NOW NOT ALSO GROWING GRAM NEGS BUT ALSO GRAM POSITIVE ORGANISMS. RECEIVED A SINGLE DOSE OF VANCOMYCIN. WILL GIVE CUBICIN PENDING OFFICIAL IDENTIFICATION OF HER MICRO-ORGANISMS 500MG IVPG Q 48 HOURS. PROGNOSIS GUARDED. Objective - Vital Signs/Intake and Output Vital Signs (last 24 hours): Temp Pulse Resp BP Pulse Ox 97.4 F L 77 20 138/71 98 03/06/18 18:19 03/06/18 18:19 03/06/18 18:19 03/06/18 18:19 03/06/18 15:44 Intake and Output: 03/06/18 03/07/18 18:59 06:59 Intake Total 225 Output Total 800 Balance -575 - Medications Medications: Current Medications Acetaminophen (Tylenol 325mg Tab) 650 mg PO Q4 PRN PRN Reason: Pain, Mild (1-3) Last Admin: 03/04/18 21:33 Dose: 650 mg Alprazolam (Xanax) 0.5 mg PO Q8H PRN PRN Reason: Anxiety Last Admin: 03/05/18 03:51 Dose: 0.5 mg Aspirin (Aspirin Chewable) 81 mg PO DAILY [facility] Last Admin: 03/06/18 14:12 Dose: 81 mg Clopidogrel Bisulfate (Plavix) 75 mg PO DAILY [facility] Last Admin: 03/06/18 14:12 Dose: 75 mg Fluoxetine HCl (Prozac) 10 mg PO DAILY [facility] Last Admin: 03/06/18 10:40 Dose: 10 mg Gabapentin (Neurontin) 300 mg PO BID [facility] Last Admin: 03/06/18 18:47 Dose: 300 mg Cefepime HCl (Maxipime Iv 1 Gm Premix) 1 gm in 50 mls @ 100 mls/hr IVPB Q24H [facility]; Protocol Last Admin: 03/06/18 10:40 Dose: 100 mls/hr Daptomycin 500 mg/ Sodium (Chloride) 100 mls @ 100 mls/hr IV Q48H [facility]; Protocol Stop: 03/11/18 19:31 Insulin Human Regular (Novolin R) 0 unit SC ACHS [facility]; Protocol Last Admin: 03/06/18 18:47 Dose: 6 unit Rosuvastatin Calcium (Crestor) 5 mg PO DAILY [facility] - Labs Labs: 03/06/18 07:02 03/06/18 07:02
--- NOTE | 2018-03-06 21:41 | OP ---
PROCEDURE DATE: 03/05/2018 PREOPERATIVE DIAGNOSES: Urinary tract infection. Hydronephrosis. Urolithiasis. POSTOPERATIVE DIAGNOSES: Urinary tract infection. Hydronephrosis. Urolithiasis. PROCEDURES: Cystoscopy. Left retrograde pyelogram. Insertion of left ureteral stent. OPERATING SURGEON: Dr. Joelle Cooney. Procedure was formed under video endoscopic control as well as under fluoroscopic control. DESCRIPTION OF PROCEDURE: The patient was placed in lithotomy position. The genitalia prepped and sterilely. Lidocaine jelly was instilled to urethra. Sedation was provided by the anesthesiologist. A 22-[place] cystoscope sheath was introduced with obturator. Urine was sent for bacteriologic examination. The bladder was inspected with 30-degree lens. There was diffuse [id number] cystitis. The left ureteral orifice identified. A 0.035-inch guidewire inserted to the left ureteral orifice up to the level of kidney. An open-end catheter inserted over the guidewire. Iodinated contrast dye was instilled. The stone was not well demonstrated. There was moderate hydronephrosis. The guidewire was reinserted. A 6-[place] multilength stent was inserted over the guidewire. Proper stent position was confirmed with fluoroscopy and endoscopy. The guidewire was removed. Stent was left in place. The bladder was reinspected and confirmed the above findings. The bladder was then drained. Cystoscope sheath removed. Bennett catheter was inserted. Exam under anesthesia was performed. There was no abnormal pelvic mass fixation or induration. The patient tolerated the procedure without complication. Joelle Cooney MD
[2018-03-06] MEDS: DAPTOmycin 500 MG in Sodium Chloride 0.9% 100 ML IV SCH (21:43)
[2018-03-07] MEDS ORDERED: Loperamide Hydrochloride 1 mg/5 ml Cup PO PRN (08:33)
--- NOTE | 2018-03-07 08:39 | CP.PCM.PN ---
Subjective - Date & Time of Evaluation Date of Evaluation: 03/07/18 Time of Evaluation: 08:36 - Subjective Subjective: Patient today feeling slightly better than yesterday. She is feeling comfortable. had an episode of diarrhea last night. She has no chest pain or shortness of breath. The blood sugar is elevated On examination: Vital signs stable otherwise. Chest good air entry, no abdominal tenderness noted, edema in the legs noted The labs currently pending Assessment and recommendation: 72-year-old female with a history of diabetes hypertension CAD hypercholesterolemia obesity admitted to the hospital with acute septic shock, gram-negative bacteremia. Also left-sided hydronephrosis obstructing renal stone, status post ureteral stent. anemia received blood transfusion yesterday, awaiting for labs. On antibiotic, will follow the patient OOB to chair Objective - Vital Signs/Intake and Output Vital Signs (last 24 hours): Temp Pulse Resp BP Pulse Ox 98.4 F 81 20 144/80 97 03/07/18 07:00 03/07/18 07:25 03/07/18 07:00 03/07/18 07:00 03/07/18 07:00 Intake and Output: 03/07/18 03/07/18 06:59 18:59 Intake Total 325 Output Total 750 Balance -425 - Medications Medications: Current Medications Acetaminophen (Tylenol 325mg Tab) 650 mg PO Q4 PRN PRN Reason: Pain, Mild (1-3) Last Admin: 03/04/18 21:33 Dose: 650 mg Alprazolam (Xanax) 0.5 mg PO Q8H PRN PRN Reason: Anxiety Last Admin: 03/06/18 23:43 Dose: 0.5 mg Aspirin (Aspirin Chewable) 81 mg PO DAILY [facility] Last Admin: 03/06/18 14:12 Dose: 81 mg Clopidogrel Bisulfate (Plavix) 75 mg PO DAILY [facility] Last Admin: 03/06/18 14:12 Dose: 75 mg Fluoxetine HCl (Prozac) 10 mg PO DAILY [facility] Last Admin: 03/06/18 10:40 Dose: 10 mg Gabapentin (Neurontin) 300 mg PO BID [facility] Last Admin: 03/06/18 18:47 Dose: 300 mg Cefepime HCl (Maxipime Iv 1 Gm Premix) 1 gm in 50 mls @ 100 mls/hr IVPB Q24H [facility]; Protocol Last Admin: 03/06/18 10:40 Dose: 100 mls/hr Daptomycin 500 mg/ Sodium (Chloride) 100 mls @ 100 mls/hr IV Q48H [facility]; Protocol Stop: 03/11/18 20:01 Last Admin: 03/06/18 21:43 Dose: 100 mls/hr Insulin Human Regular (Novolin R) 0 unit SC ACHS [facility]; Protocol Last Admin: 03/06/18 22:00 Dose: Not Given Loperamide HCl (Imodium) 1 mg PO DAILY PRN PRN Reason: Diarrhea Rosuvastatin Calcium (Crestor) 5 mg PO [facility] Last Admin: 03/06/18 21:46 Dose: 5 mg - Labs Labs: 03/06/18 07:02 03/06/18 07:02
[2018-03-07 08:44] LABS: BASO # 0.1 K/uL (0.0-0.2); BASO % 0.7 % (0.0-2.0); EOS # 0.3 K/uL (0.0-0.7); EOS % 2.2 % (0.0-4.0); HEMOGLOBIN 8.8 g/dL (11.0-16.0); LYMPH # 0.7 K/uL (1.0-4.3); LYMPH % 4.8 % (20.0-40.0); MEAN CELL VOLUME 87.9 fL (81.0-99.0); MEAN CORPUSCULAR HEMOGLOBIN 28.7 pg (27.0-31.0); MEAN CORPUSCULAR HGB CONC 32.7 g/dL (33.0-37.0); MEAN PLATELET VOLUME 8.3 fL (7.2-11.7); MONO # 1.4 K/uL (0.0-0.8); MONO % 9.9 % (0.0-10.0); NEUT # 11.5 K/uL (1.8-7.0); NEUT % 82.4 % (50.0-75.0); NRBC % 0.1 % (0.0-2.0); PLATELET COUNT 300 K/uL (130-400); RBC 3.07 Mil/uL (3.80-5.20); RED CELL DISTRIBUTION WIDTH 14.8 % (11.5-14.5)
[2018-03-07] MEDS: (Novolin R) Insulin Human Regular 100 units/ml vial SC SCH ×4 (08:59→22:00)
[2018-03-07 09:08] LABS: ALB/GLOB RATIO 0.9 (1.0-2.1); ALBUMIN 3.2 g/dL (3.5-5.0); CALCIUM 7.8 mg/dl (8.6-10.4)
[2018-03-07 10:23] LABS: BANDS 6 % (0-2); EOSINOPHIL 1 % (0-4); LYMPHOCYTE 2 % (20-40); METAMYELOCYTE 2 % (0-0); MONOCYTE 6 % (0-10); NEUTROPHIL 83 % (50-75); PLATELET ESTIMATE NORMAL (NORMAL); TOTAL CELLS COUNTED 100
[2018-03-07 10:24] LABS: HYPOCHROMIC SLIGHT
[2018-03-07] MEDS: Cefepime IV 1 gm in Dextrose 1 GM/50 ML BAG IVPB SCH (11:41)
--- NOTE | 2018-03-07 13:10 | CARD ---
APPROVED REPORT Date of service: 03/04/2018 EKG Measurement Heart [id number] <Conclusion> Normal sinus rhythm Normal ECG
[2018-03-07] MEDS ORDERED: Potassium Chloride 20 mEq/15 ml LIQ UD PO ONE (14:00)
--- NOTE | 2018-03-07 21:23 | PCM.URO ---
Urology Progress Note - Subjective Hematuria: Yes (all wnl, s/p stent , maintain antibiotics ) - Objective Lab Results Last 24 Hours: Laboratory Results - last 24 hr 03/06/18 03/07/18 03/07/18 21:20 06:23 08:17 WBC 14.0 H RBC 3.07 L Hgb 8.8 L Hct 27.0 L MCV 87.9 MCH 28.7 MCHC 32.7 L RDW 14.8 H Plt Count 300 MPV 8.3 Neut % (Auto) 82.4 H Lymph % (Auto) 4.8 L [place] % (Auto) 9.9 Eos % (Auto) 2.2 Baso % (Auto) 0.7 Neut # (Auto) 11.5 H Lymph # (Auto) 0.7 L [place] # (Auto) 1.4 H Eos # (Auto) 0.3 Baso # (Auto) 0.1 Neutrophils % (Manual) 83 H Band Neutrophils % 6 H Lymphocytes % (Manual) 2 L Monocytes % (Manual) 6 Eosinophils % (Manual) 1 Metamyelocytes % 2 H Platelet Estimate Normal Hypochromasia (manual) Slight Sodium Potassium Chloride Carbon Dioxide Anion Gap BUN Creatinine Est GFR ( Amer) Est GFR (Non-Af Amer) POC Glucose (mg/dL) 290 H 229 H Random Glucose Calcium Phosphorus Magnesium Total Bilirubin AST ALT Alkaline Phosphatase Total Protein Albumin Globulin Albumin/Globulin Ratio 03/07/18 03/07/18 03/07/18 08:17 11:13 16:23 WBC RBC Hgb Hct MCV MCH MCHC RDW Plt Count MPV Neut % (Auto) Lymph % (Auto) [place] % (Auto) Eos % (Auto) Baso % (Auto) Neut # (Auto) Lymph # (Auto) [place] # (Auto) Eos # (Auto) Baso # (Auto) Neutrophils % (Manual) Band Neutrophils % Lymphocytes % (Manual) Monocytes % (Manual) Eosinophils % (Manual) Metamyelocytes % Platelet Estimate Hypochromasia (manual) Sodium 130 L Potassium 3.5 L Chloride 96 L Carbon Dioxide 24 Anion Gap 14 BUN 61 H Creatinine 2.9 H Est GFR ( Amer) 19 Est GFR (Non-Af Amer) 16 POC Glucose (mg/dL) 252 H 255 H Random Glucose 223 H Calcium 7.8 L Phosphorus 3.3 Magnesium 2.9 H Total Bilirubin 0.4 AST 33 ALT 18 Alkaline Phosphatase 112 Total Protein 6.8 Albumin 3.2 L Globulin 3.6 Albumin/Globulin Ratio 0.9 L Intake & Output: Intake & Output 03/07/18 03/07/18 03/08/18 06:59 18:59 06:59 Intake Total 325 Output Total 750 1320 Balance -425 -1320 Intake: Blood Product 325 Red Blood Cells Cpd As1 325 Lr Unit [id number] Output: Urine 750 1320 Urine, Voided 750 1320 Vital Signs: Vital Signs - 24 hr 03/06/18 03/06/18 03/07/18 23:00 23:57 07:00 Temperature 97.7 F 98.4 F Pulse Rate 83 85 82 Respiratory 20 20 Rate Blood Pressure 158/79 H 144/80 O2 Sat by Pulse 99 97 Oximetry 03/07/18 03/07/18 03/07/18 07:25 11:23 15:30 Temperature 97.8 F Pulse Rate 81 81 78 Respiratory 20 Rate Blood Pressure 133/81 O2 Sat by Pulse 97 100 Oximetry 03/07/18 16:00 Temperature Pulse Rate 89 Respiratory Rate Blood Pressure O2 Sat by Pulse Oximetry
[2018-03-07] MEDS ORDERED: Aluminum Hydroxide/Magnesium Hydroxide Susp (30 mL) PO ONE (21:42)
[2018-03-07] MEDS: (Lantus) Insulin Glargine, Recombinant SC SCH (22:09)
[2018-03-08 07:45] LABS: BASO # 0.1 K/uL (0.0-0.2); BASO % 0.7 % (0.0-2.0); EOS # 0.4 K/uL (0.0-0.7); EOS % 3.3 % (0.0-4.0); LYMPH # 0.7 K/uL (1.0-4.3); LYMPH % 5.9 % (20.0-40.0); MEAN CELL VOLUME 88.6 fL (81.0-99.0); MEAN CORPUSCULAR HEMOGLOBIN 28.9 pg (27.0-31.0); MEAN CORPUSCULAR HGB CONC 32.7 g/dL (33.0-37.0); MONO # 1.2 K/uL (0.0-0.8); MONO % 9.4 % (0.0-10.0); NEUT # 10.2 K/uL (1.8-7.0); NEUT % 80.7 % (50.0-75.0); PLATELET COUNT 305 K/uL (130-400); RBC 3.11 Mil/uL (3.80-5.20); WHITE BLOOD COUNT 12.6 K/uL (4.8-10.8)
[2018-03-08 08:01] LABS: ALB/GLOB RATIO 0.9 (1.0-2.1); ALBUMIN 3.1 g/dL (3.5-5.0); CALCIUM 7.7 mg/dl (8.6-10.4)
[2018-03-08] MEDS: (Novolin R) Insulin Human Regular 100 units/ml vial SC SCH ×4 (08:27→21:59)
[2018-03-08 08:42] LABS: EOSINOPHIL 2 % (0-4); LYMPHOCYTE 4 % (20-40); MONOCYTE 4 % (0-10); NEUTROPHIL 90 % (50-75); TOTAL CELLS COUNTED 100
[2018-03-08 08:44] LABS: PLATELET ESTIMATE NORMAL (NORMAL)
[2018-03-08 08:47] LABS: ANISOCYTOSIS SLIGHT; HYPOCHROMIC SLIGHT
[2018-03-08] MEDS: Cefepime IV 1 gm in Dextrose 1 GM/50 ML BAG IVPB SCH (09:18)
--- NOTE | 2018-03-08 09:43 | CON ---
DATE: 03/06/2018 Urology consultation is requested by Dr. Barbi Wayne. Urology consultation is filled by Dr. Joelle Cooney. REASON FOR CONSULTATION: Urinary tract infection, urolithiasis. HISTORY OF PRESENT ILLNESS: The patient is a 72-year-old female. The patient presents with fever. The patient was found to have marked leukocytosis. The patient reports no abdominal pain, no flank pain. The patient did have general weakness and malaise. She reports no nausea or vomiting. The patient had a CT scan which revealed an obstructed left kidney secondary to a large upper ureteral stone. The patient reports no hematuria. The patient has had urinary incontinence. There is no hematuria. The patient did have dysuria. The patient reports bilateral back pain, left greater than right. There is no history of previous urolithiasis. The patient has history of hypertension. History of diabetes. History of coronary artery disease. The patient is now admitted for evaluation and therapy. The patient has been incontinent of urine. No hematuria. Abdomen is distended. There is moderate back tenderness bilaterally in the flank. LABORATORY DATA: Reviewed. CAT scan is reviewed. White blood count of 23,000 is noted. The obstructing left ureteral stone is noted in addition to left renal stones. IMPRESSION: 1. Urinary tract infection. 2. Diabetes. 3. Leukocytosis. 4. Hydronephrosis. 5. Urolithiasis. RECOMMENDATIONS AND PLAN: Urine culture. Blood culture. Antibiotic therapy. Cystoscopy and stent insertion. Nature of procedure including risks, benefits, alternatives have been discussed with the patient as well as with the attending physician. Temporary nature of the stent including needs for its removal and stone removal has been discussed as well. Anticipation further therapy to follow according to the patient's clinical course as well as results of above. Joelle Cooney MD cc: Melvin Wayne MD
--- NOTE | 2018-03-08 11:30 | CP.PCM.PN ---
Subjective - Date & Time of Evaluation Date of Evaluation: 03/08/18 Time of Evaluation: 11:28 - Subjective Subjective: Excellent UO- 2550ml creat starting to decrease lyter acceptable on IV ABs for urosepsis will be starting to eat soon Objective - Vital Signs/Intake and Output Vital Signs (last 24 hours): Temp Pulse Resp BP Pulse Ox 97.6 F 79 18 154/68 H 98 03/08/18 07:00 03/08/18 08:00 03/08/18 07:00 03/08/18 07:00 03/08/18 07:00 Intake and Output: 03/08/18 03/08/18 06:59 18:59 Intake Total 360 Output Total 1050 Balance -690 - Medications Medications: Current Medications Acetaminophen (Tylenol 325mg Tab) 650 mg PO Q4 PRN PRN Reason: Pain, Mild (1-3) Last Admin: 03/04/18 21:33 Dose: 650 mg Alprazolam (Xanax) 0.5 mg PO Q8H PRN PRN Reason: Anxiety Last Admin: 03/08/18 05:22 Dose: 0.5 mg Aspirin (Aspirin Chewable) 81 mg PO DAILY [facility] Last Admin: 03/08/18 09:16 Dose: 81 mg Clopidogrel Bisulfate (Plavix) 75 mg PO DAILY [facility] Last Admin: 03/08/18 09:16 Dose: 75 mg Fluoxetine HCl (Prozac) 10 mg PO DAILY [facility] Last Admin: 03/08/18 09:16 Dose: 10 mg Gabapentin (Neurontin) 300 mg PO BID [facility] Last Admin: 03/08/18 09:16 Dose: 300 mg Heparin Sodium (Porcine) (Heparin) 5,000 units SC Q8 [facility] Last Admin: 03/08/18 05:22 Dose: 5,000 units Cefepime HCl (Maxipime Iv 1 Gm Premix) 1 gm in 50 mls @ 100 mls/hr IVPB Q24H [facility]; Protocol Last Admin: 03/08/18 09:18 Dose: 100 mls/hr Daptomycin 500 mg/ Sodium (Chloride) 100 mls @ 100 mls/hr IV Q48H [facility]; Protocol Stop: 03/11/18 20:01 Last Admin: 03/06/18 21:43 Dose: 100 mls/hr Insulin Glargine (Lantus) 10 unit SC [facility] Last Admin: 03/07/18 22:09 Dose: 10 unit Insulin Human Regular (Novolin R) 0 unit SC ACHS [facility]; Protocol Last Admin: 03/08/18 08:27 Dose: 3 unit Loperamide HCl (Imodium) 1 mg PO DAILY PRN PRN Reason: Diarrhea Rosuvastatin Calcium (Crestor) 5 mg PO [facility] Last Admin: 03/07/18 22:09 Dose: 5 mg Sitagliptin Phosphate (Januvia) 25 mg PO DAILY [facility] Last Admin: 03/08/18 09:16 Dose: 25 mg - Labs Labs: 03/08/18 07:36 03/08/18 07:36 - Constitutional Appears: No Acute Distress, Chronically Ill - Head Exam Head Exam: ATRAUMATIC, NORMAL INSPECTION - Eye Exam Eye Exam: EOMI, Normal appearance - Neck Exam Neck Exam: Normal Inspection. absent: Tenderness - Respiratory Exam Respiratory Exam: Clear to Ausculation Bilateral, NORMAL BREATHING PATTERN - Cardiovascular Exam Cardiovascular Exam: REGULAR RHYTHM, +S1 - GI/Abdominal Exam GI & Abdominal Exam: Soft. absent: Tenderness - Extremities Exam Extremities Exam: Normal Inspection. absent: Tenderness - Neurological Exam Neurological Exam: Awake, CN II-XII Intact - Skin Skin Exam: Dry, Warm Assessment and Plan (1) IZZY (acute kidney injury) Status: Acute (2) Bacteremia due to Gram-negative bacteria Status: Acute (3) CKD (chronic kidney disease) Status: Acute (4) Sepsis Status: Acute (5) Renal calculus Status: Acute (6) CAD (coronary artery disease) Status: Acute (7) Bacteremia Status: Resolved (8) UTI (urinary tract infection) Status: Resolved - Assessment and Plan (Free Text) Plan: IV ABs Monitor lytes, renal function follow plans
--- NOTE | 2018-03-08 11:56 | PCM.URO ---
Urology Progress Note - General General: No Complaints, Tolerating Diet - Subjective Abdominal Pain: No Flank Pain: No Nausea: No Vomiting: No Voiding Well: No (catheter in place) Hematuria: No Dsypnea: No Chest Pain: No Fever & Chills: No - Objective Lab Studies: Reviewed (creat=2.6 wbc=12,600) Lab Results Last 24 Hours: Laboratory Results - last 24 hr 03/07/18 03/07/18 03/07/18 16:23 16:58 21:22 WBC RBC Hgb Hct MCV MCH MCHC RDW Plt Count MPV Neut % (Auto) Lymph % (Auto) [place] % (Auto) Eos % (Auto) Baso % (Auto) Neut # (Auto) Lymph # (Auto) [place] # (Auto) Eos # (Auto) Baso # (Auto) Neutrophils % (Manual) Lymphocytes % (Manual) Monocytes % (Manual) Eosinophils % (Manual) Platelet Estimate Hypochromasia (manual) Anisocytosis (manual) Sodium Potassium Chloride Carbon Dioxide Anion Gap BUN Creatinine Est GFR ( Amer) Est GFR (Non-Af Amer) POC Glucose (mg/dL) 255 H 233 H 317 H Random Glucose Calcium Phosphorus Magnesium Total Bilirubin AST ALT Alkaline Phosphatase Total Protein Albumin Globulin Albumin/Globulin Ratio 03/08/18 03/08/18 03/08/18 06:42 07:36 07:36 WBC 12.6 H RBC 3.11 L Hgb 9.0 L Hct 27.5 L MCV 88.6 MCH 28.9 MCHC 32.7 L RDW 15.0 H Plt Count 305 MPV 8.0 Neut % (Auto) 80.7 H Lymph % (Auto) 5.9 L [place] % (Auto) 9.4 Eos % (Auto) 3.3 Baso % (Auto) 0.7 Neut # (Auto) 10.2 H Lymph # (Auto) 0.7 L [place] # (Auto) 1.2 H Eos # (Auto) 0.4 Baso # (Auto) 0.1 Neutrophils % (Manual) 90 H Lymphocytes % (Manual) 4 L Monocytes % (Manual) 4 Eosinophils % (Manual) 2 Platelet Estimate Normal Hypochromasia (manual) Slight Anisocytosis (manual) Slight Sodium 132 Potassium 4.3 Chloride 98 Carbon Dioxide 26 Anion Gap 12 BUN 54 H Creatinine 2.6 H Est GFR ( Amer) 22 Est GFR (Non-Af Amer) 18 POC Glucose (mg/dL) 206 H Random Glucose 235 H Calcium 7.7 L Phosphorus 2.8 Magnesium 2.7 H Total Bilirubin 0.4 AST 41 H D ALT 30 Alkaline Phosphatase 114 Total Protein 6.8 Albumin 3.1 L Globulin 3.7 Albumin/Globulin Ratio 0.9 L 03/08/18 11:34 WBC RBC Hgb Hct MCV MCH MCHC RDW Plt Count MPV Neut % (Auto) Lymph % (Auto) [place] % (Auto) Eos % (Auto) Baso % (Auto) Neut # (Auto) Lymph # (Auto) [place] # (Auto) Eos # (Auto) Baso # (Auto) Neutrophils % (Manual) Lymphocytes % (Manual) Monocytes % (Manual) Eosinophils % (Manual) Platelet Estimate Hypochromasia (manual) Anisocytosis (manual) Sodium Potassium Chloride Carbon Dioxide Anion Gap BUN Creatinine Est GFR ( Amer) Est GFR (Non-Af Amer) POC Glucose (mg/dL) 275 H Random Glucose Calcium Phosphorus Magnesium Total Bilirubin AST ALT Alkaline Phosphatase Total Protein Albumin Globulin Albumin/Globulin Ratio Intake & Output: Intake & Output 03/07/18 03/08/18 03/08/18 18:59 06:59 18:59 Intake Total 360 Output Total 1320 1050 Balance -1320 -690 Intake: Oral 360 Output: Urine 1320 1050 Urine, Voided 1320 1050 Other: # Bowel Movements 1 Vital Signs: Vital Signs - 24 hr 03/07/18 03/07/18 03/07/18 15:30 16:00 23:57 Temperature 97.8 F 98.6 F Pulse Rate 78 89 74 Respiratory 20 20 Rate Blood Pressure 133/81 130/74 O2 Sat by Pulse 100 96 Oximetry 03/08/18 03/08/18 07:00 08:00 Temperature 97.6 F Pulse Rate 75 79 Respiratory 18 Rate Blood Pressure 154/68 H O2 Sat by Pulse 98 Oximetry - Physical Exam Abdominal Exam: Soft, Non-Tender, Non-Distended Back: No CVA Tenderness Urinary Catheter Draining Well: Yes Urine Color: Clear, Yellow - Plan Discontinue Urinary Catheter: Yes Ambulation - Out of Bed: Yes See Orders: Yes Additional Information: IMP: improving re seosis. uti. urolithiasis. P/Rec: abd xray. poss lithotripsy t/f after discharge
--- NOTE | 2018-03-08 12:57 | CP.PCM.PN ---
Subjective - Date & Time of Evaluation Date of Evaluation: 03/08/18 Time of Evaluation: 12:55 - Subjective Subjective: INFECTIOUS DISEASE PROGRESS NOTES INGA MENG MD, FACP 562 03/08/2018 CHART REVIEWED EXAM NOTE CASE DISCUSSED No Complaints, Tolerating Diet - Subjective Abdominal Pain: No Flank Pain: No Nausea: No Vomiting: No Voiding Well: No (catheter in place) Hematuria: No Dsypnea: No Chest Pain: No Fever & Chills: No - Objective Lab Studies: Reviewed (creat=2.6 wbc=12,600) SWITCH AB TO ROCEPHIN 1GM DAILY AND OBSERVE MEDICAL RESPONSE. Objective - Vital Signs/Intake and Output Vital Signs (last 24 hours): Temp Pulse Resp BP Pulse Ox 97.6 F 79 18 154/68 H 98 03/08/18 07:00 03/08/18 08:00 03/08/18 07:00 03/08/18 07:00 03/08/18 07:00 Intake and Output: 03/08/18 03/08/18 06:59 18:59 Intake Total 360 Output Total 1050 1200 Balance -690 -1200 - Medications Medications: Current Medications Acetaminophen (Tylenol 325mg Tab) 650 mg PO Q4 PRN PRN Reason: Pain, Mild (1-3) Last Admin: 03/04/18 21:33 Dose: 650 mg Alprazolam (Xanax) 0.5 mg PO Q8H PRN PRN Reason: Anxiety Last Admin: 03/08/18 05:22 Dose: 0.5 mg Aspirin (Aspirin Chewable) 81 mg PO DAILY [facility] Last Admin: 03/08/18 09:16 Dose: 81 mg Clopidogrel Bisulfate (Plavix) 75 mg PO DAILY [facility] Last Admin: 03/08/18 09:16 Dose: 75 mg Fluoxetine HCl (Prozac) 10 mg PO DAILY [facility] Last Admin: 03/08/18 09:16 Dose: 10 mg Gabapentin (Neurontin) 300 mg PO BID [facility] Last Admin: 03/08/18 09:16 Dose: 300 mg Heparin Sodium (Porcine) (Heparin) 5,000 units SC Q8 [facility] Last Admin: 03/08/18 05:22 Dose: 5,000 units Cefepime HCl (Maxipime Iv 1 Gm Premix) 1 gm in 50 mls @ 100 mls/hr IVPB Q24H [facility]; Protocol Last Admin: 03/08/18 09:18 Dose: 100 mls/hr Daptomycin 500 mg/ Sodium (Chloride) 100 mls @ 100 mls/hr IV Q48H [facility]; Protocol Stop: 03/11/18 20:01 Last Admin: 03/06/18 21:43 Dose: 100 mls/hr Insulin Glargine (Lantus) 10 unit SC HS [facility] Last Admin: 03/07/18 22:09 Dose: 10 unit Insulin Human Regular (Novolin R) 0 unit SC [facility]; Protocol Last Admin: 03/08/18 12:48 Dose: 4 unit Loperamide HCl (Imodium) 1 mg PO DAILY PRN PRN Reason: Diarrhea Rosuvastatin Calcium (Crestor) 5 mg PO HS [facility] Last Admin: 03/07/18 22:09 Dose: 5 mg Sitagliptin Phosphate (Januvia) 25 mg PO DAILY [facility] Last Admin: 03/08/18 09:16 Dose: 25 mg - Labs Labs: 03/08/18 07:36 03/08/18 07:36
--- NOTE | 2018-03-08 14:25 | RAD ---
Date of service: 03/08/2018 HISTORY: urolithiasis COMPARISON: None available. FINDINGS: BOWEL: Nonobstructive bowel gas pattern appreciated. Retained oral contrast is suggested within the distal large bowel and possibly the rectum. No gross free air. No suspicious intra-abdominal calcifications identified. Left double-J ureteral stent in position limited retained radiodense. Limited, retained contrast material is not excluded in the urinary bladder. Surgical clips are identified in the right upper quadrant abdomen. BONES: Normal. OTHER FINDINGS: None. IMPRESSION: Status post left double-J ureteral stent without radiodense urolithiasis appreciable bilaterally grossly.
[2018-03-08] MEDS: Nystatin 100,000 Units/gm Cream(15 gm) TOP SCH ×2 (15:17→18:59)
--- NOTE | 2018-03-08 16:37 | RAD ---
Date of service: 03/05/2018 PROCEDURE: Intraoperative Fluoroscopy. HISTORY: LEFT URETERAL STONE FINDINGS: Fluoroscopic assistance was provided. Fluoroscopy time = 39.2 sec. Radiation dose = 1.06 mGy-cm. Please refer to the operative report from Dr. POWERS, [place].
--- NOTE | 2018-03-08 18:05 | CP.PCM.PN ---
Subjective - Date & Time of Evaluation Date of Evaluation: 03/08/18 Time of Evaluation: 18:04 - Subjective Subjective: Patient this morning doing well. She was feeling somewhat weakness. Diarrhea present. She denies any chest pain. No nausea no vomiting On examination: Vital signs stable. Chest good air entry, no wheezing or rales noted Chest bilateral good air entry Heart sounds are regular Abdomen soft. 1+ edema in the legs noted Labs reviewed Slight improvement in the renal function is noted. I discussed the urologist, Bennett catheter can be discontinued Outpatient lithotripsy possibly Infection point of view patient is on antibiotic. If replace midline, patient can be discharged [facility] tomorrow or day after tomorrow. Clinically patient is stable otherwise. We will repeat the labs tomorrow Objective - Vital Signs/Intake and Output Vital Signs (last 24 hours): Temp Pulse Resp BP Pulse Ox 97.9 F 72 18 146/74 99 03/08/18 15:00 03/08/18 15:00 03/08/18 15:00 03/08/18 15:00 03/08/18 15:00 Intake and Output: 03/08/18 03/08/18 06:59 18:59 Intake Total 360 Output Total 1050 1200 Balance -690 -1200 - Medications Medications: Current Medications Acetaminophen (Tylenol 325mg Tab) 650 mg PO Q4 PRN PRN Reason: Pain, Mild (1-3) Last Admin: 03/04/18 21:33 Dose: 650 mg Alprazolam (Xanax) 0.5 mg PO Q8H PRN PRN Reason: Anxiety Last Admin: 03/08/18 17:36 Dose: 0.5 mg Aspirin (Aspirin Chewable) 81 mg PO DAILY [facility] Last Admin: 03/08/18 09:16 Dose: 81 mg Clopidogrel Bisulfate (Plavix) 75 mg PO DAILY [facility] Last Admin: 03/08/18 09:16 Dose: 75 mg Fluoxetine HCl (Prozac) 10 mg PO DAILY [facility] Last Admin: 03/08/18 09:16 Dose: 10 mg Gabapentin (Neurontin) 300 mg PO BID [facility] Last Admin: 03/08/18 17:36 Dose: 300 mg Heparin Sodium (Porcine) (Heparin) 5,000 units SC Q8 [facility] Last Admin: 03/08/18 13:43 Dose: 5,000 units Daptomycin 500 mg/ Sodium (Chloride) 100 mls @ 100 mls/hr IV Q48H [facility]; Protocol Stop: 03/11/18 20:01 Last Admin: 03/06/18 21:43 Dose: 100 mls/hr Ceftriaxone Sodium 1 gm/ (Sodium Chloride) 100 mls @ 100 mls/hr IVPB Q24H [facility]; Protocol Last Admin: 03/08/18 13:43 Dose: 100 mls/hr Insulin Glargine (Lantus) 10 unit SC [facility] Last Admin: 03/07/18 22:09 Dose: 10 unit Insulin Human Regular (Novolin R) 0 unit SC ACHS [facility]; Protocol Last Admin: 03/08/18 12:48 Dose: 4 unit Loperamide HCl (Imodium) 1 mg PO DAILY PRN PRN Reason: Diarrhea Nystatin (Mycostatin Cream) 0 ea TOP TID [facility] Last Admin: 03/08/18 15:17 Dose: Not Given Rosuvastatin Calcium (Crestor) 5 mg PO [facility] Last Admin: 03/07/18 22:09 Dose: 5 mg Sitagliptin Phosphate (Januvia) 25 mg PO DAILY [facility] Last Admin: 03/08/18 09:16 Dose: 25 mg - Labs Labs: 03/08/18 07:36 03/08/18 07:36
[2018-03-08] MEDS: (Lantus) Insulin Glargine, Recombinant SC SCH (21:58)
[2018-03-08] MEDS: DAPTOmycin 500 MG in Sodium Chloride 0.9% 100 ML IV SCH (21:58)
[2018-03-09 06:26] LABS: BASO % 0.3 % (0.0-2.0); EOS # 0.7 K/uL (0.0-0.7); EOS % 4.9 % (0.0-4.0); HEMOGLOBIN 9.3 g/dL (11.0-16.0); LYMPH # 0.7 K/uL (1.0-4.3); LYMPH % 5.1 % (20.0-40.0); MEAN CELL VOLUME 87.6 fL (81.0-99.0); MEAN CORPUSCULAR HEMOGLOBIN 28.4 pg (27.0-31.0); MEAN CORPUSCULAR HGB CONC 32.5 g/dL (33.0-37.0); MEAN PLATELET VOLUME 7.9 fL (7.2-11.7); MONO # 1.1 K/uL (0.0-0.8); NEUT # 11.5 K/uL (1.8-7.0); NEUT % 81.7 % (50.0-75.0); PLATELET COUNT 352 K/uL (130-400); RBC 3.28 Mil/uL (3.80-5.20); WHITE BLOOD COUNT 14.1 K/uL (4.8-10.8)
[2018-03-09 06:50] LABS: ALB/GLOB RATIO 0.9 (1.0-2.1); ALBUMIN 3.1 g/dL (3.5-5.0); CALCIUM 7.7 mg/dl (8.6-10.4)
[2018-03-09] MEDS: (Novolin R) Insulin Human Regular 100 units/ml vial SC SCH ×4 (08:28→21:26)
[2018-03-09 08:53] LABS: EOSINOPHIL 5 % (0-4); LYMPHOCYTE 6 % (20-40); MONOCYTE 6 % (0-10); NEUTROPHIL 83 % (50-75); TOTAL CELLS COUNTED 100
[2018-03-09 08:54] LABS: PLATELET ESTIMATE NORMAL (NORMAL)
[2018-03-09 08:55] LABS: ANISOCYTOSIS SLIGHT; HYPOCHROMIC SLIGHT; POLYCHROMIC SLIGHT
[2018-03-09] MEDS: Nystatin 100,000 Units/gm Cream(15 gm) TOP SCH ×3 (11:00→17:53)
--- NOTE | 2018-03-09 13:28 | CP.PCM.PN ---
Subjective - Date & Time of Evaluation Date of Evaluation: 03/09/18 Time of Evaluation: 13:28 - Subjective Subjective: seen and examined patel removed good uop denies any complaints Objective - Vital Signs/Intake and Output Vital Signs (last 24 hours): Temp Pulse Resp BP Pulse Ox 99.1 F 83 20 166/75 H 98 03/09/18 07:46 03/09/18 07:46 03/09/18 07:46 03/09/18 07:46 03/09/18 07:46 Intake and Output: 03/09/18 03/09/18 06:59 18:59 Output Total 2300 Balance -2300 - Medications Medications: Current Medications Acetaminophen (Tylenol 325mg Tab) 650 mg PO Q4 PRN PRN Reason: Pain, Mild (1-3) Last Admin: 03/04/18 21:33 Dose: 650 mg Alprazolam (Xanax) 0.5 mg PO Q8H PRN PRN Reason: Anxiety Last Admin: 03/09/18 10:21 Dose: 0.5 mg Aspirin (Aspirin Chewable) 81 mg PO DAILY [facility] Last Admin: 03/09/18 10:14 Dose: 81 mg Clopidogrel Bisulfate (Plavix) 75 mg PO DAILY [facility] Last Admin: 03/09/18 10:14 Dose: 75 mg Diphenhydramine HCl (Benadryl) 25 mg PO Q8 PRN PRN Reason: Itching / Pruritus Last Admin: 03/08/18 21:57 Dose: 25 mg Fluoxetine HCl (Prozac) 10 mg PO DAILY [facility] Last Admin: 03/09/18 10:14 Dose: 10 mg Gabapentin (Neurontin) 300 mg PO BID [facility] Last Admin: 03/09/18 10:14 Dose: 300 mg Heparin Sodium (Porcine) (Heparin) 5,000 units SC Q8 [facility] Last Admin: 03/09/18 05:44 Dose: 5,000 units Daptomycin 500 mg/ Sodium (Chloride) 100 mls @ 100 mls/hr IV Q48H [facility]; Protocol Stop: 03/11/18 20:01 Last Admin: 03/08/18 21:58 Dose: 100 mls/hr Ceftriaxone Sodium 1 gm/ (Sodium Chloride) 100 mls @ 100 mls/hr IVPB Q24H [facility]; Protocol Last Admin: 03/08/18 13:43 Dose: 100 mls/hr Insulin Glargine (Lantus) 10 unit SC [facility] Last Admin: 03/08/18 21:58 Dose: 10 unit Insulin Human Regular (Novolin R) 0 unit SC [facility]; Protocol Last Admin: 03/09/18 12:17 Dose: 8 unit Loperamide HCl (Imodium) 1 mg PO DAILY PRN PRN Reason: Diarrhea Nystatin (Mycostatin Cream) 0 ea TOP TID [facility] Last Admin: 03/08/18 18:59 Dose: Not Given Ondansetron HCl (Zofran Inj) 4 mg IVP Q6H PRN PRN Reason: Nausea/Vomiting Rosuvastatin Calcium (Crestor) 5 mg PO [facility] Last Admin: 03/08/18 21:57 Dose: 5 mg Sitagliptin Phosphate (Januvia) 25 mg PO DAILY [facility] Last Admin: 03/09/18 10:14 Dose: 25 mg - Labs Labs: 03/09/18 06:18 03/09/18 06:18 - Constitutional Appears: Non-toxic, No Acute Distress - Head Exam Head Exam: NORMAL INSPECTION, NORMOCEPHALIC - Eye Exam Eye Exam: Normal appearance Pupil Exam: PERRL - ENT Exam ENT Exam: Mucous Membranes Moist, Normal Exam - Neck Exam Neck Exam: Full ROM, Normal Inspection - Respiratory Exam Respiratory Exam: NORMAL BREATHING PATTERN - Cardiovascular Exam Cardiovascular Exam: RRR - GI/Abdominal Exam GI & Abdominal Exam: Distended, Soft - Extremities Exam Extremities Exam: Full ROM, Normal Inspection - Neurological Exam Neurological Exam: Alert, Awake, Oriented x3 - Psychiatric Exam Psychiatric exam: Normal Affect, Normal Mood - Skin Skin Exam: Dry, Normal Color Assessment and Plan (1) IZZY (acute kidney injury) Status: Acute (2) Bacteremia due to Gram-negative bacteria Status: Acute (3) Renal calculus Status: Acute - Assessment and Plan (Free Text) Assessment: corrected na 131 improving renal function may be followed outpt urology management
--- NOTE | 2018-03-09 21:03 | CP.PCM.PN ---
Subjective - Date & Time of Evaluation Date of Evaluation: 03/09/18 Time of Evaluation: 21:00 - Subjective Subjective: INFECTIOUS DISEASE PROGRESS NOTES INGA MENG MD, FACP 5T 562-B 03/09/2018 CHART REVIEWED EXAM NOTED CASE DISCUSSED seen and examined patel removed good uop denies any complaints QUESTION OF LENGTH OF AB PLAN: REC/S BLOOD, MAY CONSIDER STAPH EPI CONTAMINATION FROM DRAWING. ERGO, REC/S AND FINISH CUBICIN AFTER THE NEST DOSE. INGA MENG MD, FACP Objective - Vital Signs/Intake and Output Vital Signs (last 24 hours): Temp Pulse Resp BP Pulse Ox 97.8 F 71 22 136/81 94 L 03/09/18 15:37 03/09/18 15:37 03/09/18 15:37 03/09/18 15:37 03/09/18 15:37 Intake and Output: 03/09/18 03/10/18 18:59 06:59 Intake Total 400 Output Total 800 Balance -400 - Medications Medications: Current Medications Acetaminophen (Tylenol 325mg Tab) 650 mg PO Q4 PRN PRN Reason: Pain, Mild (1-3) Last Admin: 03/04/18 21:33 Dose: 650 mg Alprazolam (Xanax) 0.5 mg PO Q8H PRN PRN Reason: Anxiety Last Admin: 03/09/18 10:21 Dose: 0.5 mg Aspirin (Aspirin Chewable) 81 mg PO DAILY [facility] Last Admin: 03/09/18 10:14 Dose: 81 mg Clopidogrel Bisulfate (Plavix) 75 mg PO DAILY [facility] Last Admin: 03/09/18 10:14 Dose: 75 mg Diphenhydramine HCl (Benadryl) 25 mg PO Q8 PRN PRN Reason: Itching / Pruritus Last Admin: 03/08/18 21:57 Dose: 25 mg Fluoxetine HCl (Prozac) 10 mg PO DAILY [facility] Last Admin: 03/09/18 10:14 Dose: 10 mg Gabapentin (Neurontin) 300 mg PO BID [facility] Last Admin: 03/09/18 17:52 Dose: 300 mg Heparin Sodium (Porcine) (Heparin) 5,000 units SC Q8 [facility] Last Admin: 03/09/18 13:58 Dose: 5,000 units Daptomycin 500 mg/ Sodium (Chloride) 100 mls @ 100 mls/hr IV Q48H [facility]; Protocol Stop: 03/11/18 20:01 Last Admin: 03/08/18 21:58 Dose: 100 mls/hr Ceftriaxone Sodium 1 gm/ (Sodium Chloride) 100 mls @ 100 mls/hr IVPB Q24H [facility]; Protocol Last Admin: 03/09/18 13:56 Dose: 100 mls/hr Insulin Glargine (Lantus) 10 unit SC HS [facility] Last Admin: 03/08/18 21:58 Dose: 10 unit Insulin Human Regular (Novolin R) 0 unit SC ACHS [facility]; Protocol Last Admin: 03/09/18 17:52 Dose: 6 unit Loperamide HCl (Imodium) 1 mg PO DAILY PRN PRN Reason: Diarrhea Nystatin (Mycostatin Cream) 0 ea TOP TID [facility] Last Admin: 03/09/18 17:53 Dose: 1 applic Ondansetron HCl (Zofran Inj) 4 mg IVP Q6H PRN PRN Reason: Nausea/Vomiting Rosuvastatin Calcium (Crestor) 5 mg PO [facility] Last Admin: 03/08/18 21:57 Dose: 5 mg Sitagliptin Phosphate (Januvia) 25 mg PO DAILY [facility] Last Admin: 03/09/18 10:14 Dose: 25 mg - Labs Labs: 03/09/18 06:18 03/09/18 06:18
[2018-03-09] MEDS: (Lantus) Insulin Glargine, Recombinant SC SCH (21:25)
[2018-03-10] MEDS: (Novolin R) Insulin Human Regular 100 units/ml vial SC SCH ×4 (08:59→21:40)
--- NOTE | 2018-03-10 09:08 | CP.PCM.PN ---
Subjective - Date & Time of Evaluation Date of Evaluation: 03/10/18 Time of Evaluation: 09:08 - Subjective Subjective: Patient today complaining of some epigastric discomfort. Also nausea noted. But no vomiting. The repeat urine culture showing evidence of Providensia. Patient currently on antibiotic. On examination: Vital signs stable. Chest good air entry Regular hs noted Abdomen soft nontender. 1+ pedal edema We will repeat the labs now. Patient had a low sodium level. Mild elevation of the WBC noted. She has a TLC on the left side of the neck. PICC line will be done today. After that we will decide about the antibiotic and the duration as well as outpatient management Objective - Vital Signs/Intake and Output Vital Signs (last 24 hours): Temp Pulse Resp BP Pulse Ox 97.9 F 78 20 146/79 95 03/10/18 07:08 03/10/18 07:08 03/10/18 07:08 03/10/18 07:08 03/10/18 07:08 Intake and Output: 03/10/18 03/10/18 06:59 18:59 Intake Total 400 200 Output Total 1700 300 Balance -1300 -100 - Medications Medications: Current Medications Acetaminophen (Tylenol 325mg Tab) 650 mg PO Q4 PRN PRN Reason: Pain, Mild (1-3) Last Admin: 03/04/18 21:33 Dose: 650 mg Alprazolam (Xanax) 0.5 mg PO Q8H PRN PRN Reason: Anxiety Last Admin: 03/09/18 10:21 Dose: 0.5 mg Aspirin (Aspirin Chewable) 81 mg PO DAILY [facility] Last Admin: 03/09/18 10:14 Dose: 81 mg Clopidogrel Bisulfate (Plavix) 75 mg PO DAILY [facility] Last Admin: 03/09/18 10:14 Dose: 75 mg Diphenhydramine HCl (Benadryl) 25 mg PO Q8 PRN PRN Reason: Itching / Pruritus Last Admin: 03/08/18 21:57 Dose: 25 mg Fluoxetine HCl (Prozac) 10 mg PO DAILY [facility] Last Admin: 03/09/18 10:14 Dose: 10 mg Gabapentin (Neurontin) 300 mg PO BID [facility] Last Admin: 03/09/18 17:52 Dose: 300 mg Heparin Sodium (Porcine) (Heparin) 5,000 units SC Q8 [facility] Last Admin: 03/10/18 05:30 Dose: 5,000 units Daptomycin 500 mg/ Sodium (Chloride) 100 mls @ 100 mls/hr IV Q48H [facility]; Protocol Stop: 03/11/18 20:01 Last Admin: 03/08/18 21:58 Dose: 100 mls/hr Ceftriaxone Sodium 1 gm/ (Sodium Chloride) 100 mls @ 100 mls/hr IVPB Q24H [facility]; Protocol Last Admin: 03/09/18 13:56 Dose: 100 mls/hr Insulin Glargine (Lantus) 10 unit SC HS [facility] Last Admin: 03/09/18 21:25 Dose: 10 unit Insulin Human Regular (Novolin R) 0 unit SC ACHS [facility]; Protocol Last Admin: 03/10/18 08:59 Dose: 6 unit Loperamide HCl (Imodium) 1 mg PO DAILY PRN PRN Reason: Diarrhea Nystatin (Mycostatin Cream) 0 ea TOP TID [facility] Last Admin: 03/09/18 17:53 Dose: 1 applic Ondansetron HCl (Zofran Inj) 4 mg IVP Q6H PRN PRN Reason: Nausea/Vomiting Rosuvastatin Calcium (Crestor) 5 mg PO HS [facility] Last Admin: 03/09/18 21:24 Dose: 5 mg Sitagliptin Phosphate (Januvia) 25 mg PO DAILY [facility] Last Admin: 03/09/18 10:14 Dose: 25 mg - Labs Labs: 03/09/18 06:18 03/09/18 06:18
--- NOTE | 2018-03-10 09:09 | CP.PCM.PN ---
Subjective - Date & Time of Evaluation Date of Evaluation: 03/09/18 Time of Evaluation: 09:08 - Subjective Subjective: Patient is clinically stable. Complaining of some epigastric pain. She is not in any distress. No fever noted. Urine culture currently pending We will continue the current treatment. Needed PICC line. And discharge plan after getting the PICC line and possible IV antibiotic. Objective - Vital Signs/Intake and Output Vital Signs (last 24 hours): Temp Pulse Resp BP Pulse Ox 97.9 F 78 20 146/79 95 03/10/18 07:08 03/10/18 07:08 03/10/18 07:08 03/10/18 07:08 03/10/18 07:08 Intake and Output: 03/10/18 03/10/18 06:59 18:59 Intake Total 400 200 Output Total 1700 300 Balance -1300 -100 - Medications Medications: Current Medications Acetaminophen (Tylenol 325mg Tab) 650 mg PO Q4 PRN PRN Reason: Pain, Mild (1-3) Last Admin: 03/04/18 21:33 Dose: 650 mg Al Hydrox/Mg Hydrox/Simethicone (Maalox 30 Ml) 30 ml PO Q8 PRN PRN Reason: Indigestion / Heartburn Alprazolam (Xanax) 0.5 mg PO Q8H PRN PRN Reason: Anxiety Last Admin: 03/09/18 10:21 Dose: 0.5 mg Aspirin (Aspirin Chewable) 81 mg PO DAILY [facility] Last Admin: 03/09/18 10:14 Dose: 81 mg Clopidogrel Bisulfate (Plavix) 75 mg PO DAILY [facility] Last Admin: 03/09/18 10:14 Dose: 75 mg Diphenhydramine HCl (Benadryl) 25 mg PO Q8 PRN PRN Reason: Itching / Pruritus Last Admin: 03/08/18 21:57 Dose: 25 mg Fluoxetine HCl (Prozac) 10 mg PO DAILY [facility] Last Admin: 03/09/18 10:14 Dose: 10 mg Gabapentin (Neurontin) 300 mg PO BID [facility] Last Admin: 03/09/18 17:52 Dose: 300 mg Heparin Sodium (Porcine) (Heparin) 5,000 units SC Q8 [facility] Last Admin: 03/10/18 05:30 Dose: 5,000 units Daptomycin 500 mg/ Sodium (Chloride) 100 mls @ 100 mls/hr IV Q48H [facility]; Protocol Stop: 03/11/18 20:01 Last Admin: 03/08/18 21:58 Dose: 100 mls/hr Ceftriaxone Sodium 1 gm/ (Sodium Chloride) 100 mls @ 100 mls/hr IVPB Q24H [facility]; Protocol Last Admin: 03/09/18 13:56 Dose: 100 mls/hr Insulin Glargine (Lantus) 10 unit SC HS [facility] Last Admin: 03/09/18 21:25 Dose: 10 unit Insulin Human Regular (Novolin R) 0 unit SC ACHS [facility]; Protocol Last Admin: 03/10/18 08:59 Dose: 6 unit Loperamide HCl (Imodium) 1 mg PO DAILY PRN PRN Reason: Diarrhea Nystatin (Mycostatin Cream) 0 ea TOP TID [facility] Last Admin: 03/09/18 17:53 Dose: 1 applic Ondansetron HCl (Zofran Inj) 4 mg IVP Q6H PRN PRN Reason: Nausea/Vomiting Rosuvastatin Calcium (Crestor) 5 mg PO [facility] Last Admin: 03/09/18 21:24 Dose: 5 mg Sitagliptin Phosphate (Januvia) 25 mg PO DAILY [facility] Last Admin: 03/09/18 10:14 Dose: 25 mg - Labs Labs: 03/09/18 06:18 03/09/18 06:18
[2018-03-10] MEDS: Aluminum Hydroxide/Magnesium Hydroxide Susp (30 mL) PO PRN (09:57)
[2018-03-10] MEDS: Nystatin 100,000 Units/gm Cream(15 gm) TOP SCH ×3 (11:09→18:21)
[2018-03-10 11:23] LABS: BASO # 0.1 K/uL (0.0-0.2); BASO % 0.6 % (0.0-2.0); EOS # 0.7 K/uL (0.0-0.7); EOS % 5.2 % (0.0-4.0); LYMPH % 6.9 % (20.0-40.0); MEAN CELL VOLUME 88.7 fL (81.0-99.0); MEAN CORPUSCULAR HEMOGLOBIN 28.7 pg (27.0-31.0); MEAN CORPUSCULAR HGB CONC 32.3 g/dL (33.0-37.0); MEAN PLATELET VOLUME 8.1 fL (7.2-11.7); MONO % 7.3 % (0.0-10.0); PLATELET COUNT 405 K/uL (130-400); RBC 3.13 Mil/uL (3.80-5.20); RED CELL DISTRIBUTION WIDTH 14.8 % (11.5-14.5); WHITE BLOOD COUNT 13.8 K/uL (4.8-10.8)
[2018-03-10 11:55] LABS: EOSINOPHIL 1 % (0-4); LYMPHOCYTE 12 % (20-40); MONOCYTE 3 % (0-10); NEUTROPHIL 84 % (50-75); TOTAL CELLS COUNTED 100
[2018-03-10 11:58] LABS: PLATELET ESTIMATE NORMAL (NORMAL)
[2018-03-10 12:02] LABS: ALB/GLOB RATIO 0.8 (1.0-2.1); ALBUMIN 3.1 g/dL (3.5-5.0)
--- NOTE | 2018-03-10 14:03 | CP.PCM.PN ---
Subjective - Date & Time of Evaluation Date of Evaluation: 03/10/18 Time of Evaluation: 14:01 - Subjective Subjective: s/p patel removal UO less today creat about same 2.5 BSs elevated awaiting PICC on treatment for bacteremia/UTI Objective - Vital Signs/Intake and Output Vital Signs (last 24 hours): Temp Pulse Resp BP Pulse Ox 97.9 F 78 20 146/79 95 03/10/18 07:08 03/10/18 07:08 03/10/18 07:08 03/10/18 07:08 03/10/18 07:08 Intake and Output: 03/10/18 03/10/18 06:59 18:59 Intake Total 400 200 Output Total 1700 300 Balance -1300 -100 - Medications Medications: Current Medications Acetaminophen (Tylenol 325mg Tab) 650 mg PO Q4 PRN PRN Reason: Pain, Mild (1-3) Last Admin: 03/04/18 21:33 Dose: 650 mg Al Hydrox/Mg Hydrox/Simethicone (Maalox 30 Ml) 30 ml PO Q8 PRN PRN Reason: Indigestion / Heartburn Last Admin: 03/10/18 09:57 Dose: 30 ml Alprazolam (Xanax) 0.5 mg PO Q8H PRN PRN Reason: Anxiety Last Admin: 03/10/18 10:50 Dose: 0.5 mg Aspirin (Aspirin Chewable) 81 mg PO DAILY [facility] Last Admin: 03/10/18 10:50 Dose: 81 mg Clopidogrel Bisulfate (Plavix) 75 mg PO DAILY [facility] Last Admin: 03/10/18 10:50 Dose: 75 mg Diphenhydramine HCl (Benadryl) 25 mg PO Q8 PRN PRN Reason: Itching / Pruritus Last Admin: 03/10/18 11:08 Dose: 25 mg Fluoxetine HCl (Prozac) 10 mg PO DAILY [facility] Last Admin: 03/10/18 10:50 Dose: 10 mg Gabapentin (Neurontin) 300 mg PO BID [facility] Last Admin: 03/10/18 10:50 Dose: 300 mg Heparin Sodium (Porcine) (Heparin) 5,000 units SC Q8 [facility] Last Admin: 03/10/18 05:30 Dose: 5,000 units Daptomycin 500 mg/ Sodium (Chloride) 100 mls @ 100 mls/hr IV Q48H [facility]; Protocol Stop: 03/11/18 20:01 Last Admin: 03/08/18 21:58 Dose: 100 mls/hr Ceftriaxone Sodium 1 gm/ (Sodium Chloride) 100 mls @ 100 mls/hr IVPB Q24H [facility]; Protocol Last Admin: 03/09/18 13:56 Dose: 100 mls/hr Insulin Glargine (Lantus) 10 unit SC [facility] Last Admin: 03/09/18 21:25 Dose: 10 unit Insulin Human Regular (Novolin R) 0 unit SC [facility]; Protocol Last Admin: 03/10/18 13:05 Dose: 10 unit Loperamide HCl (Imodium) 1 mg PO DAILY PRN PRN Reason: Diarrhea Nystatin (Mycostatin Cream) 0 ea TOP TID [facility] Last Admin: 03/10/18 11:09 Dose: 1 applic Ondansetron HCl (Zofran Inj) 4 mg IVP Q6H PRN PRN Reason: Nausea/Vomiting Rosuvastatin Calcium (Crestor) 5 mg PO [facility] Last Admin: 03/09/18 21:24 Dose: 5 mg Sitagliptin Phosphate (Januvia) 25 mg PO DAILY [facility] Last Admin: 03/10/18 10:50 Dose: 25 mg - Labs Labs: 03/10/18 11:16 03/10/18 11:16 - Constitutional Appears: No Acute Distress, Chronically Ill - Head Exam Head Exam: ATRAUMATIC, NORMAL INSPECTION - Eye Exam Eye Exam: EOMI, Normal appearance - Neck Exam Neck Exam: Normal Inspection. absent: Tenderness - Respiratory Exam Respiratory Exam: Clear to Ausculation Bilateral, NORMAL BREATHING PATTERN - Cardiovascular Exam Cardiovascular Exam: REGULAR RHYTHM, +S1 - GI/Abdominal Exam GI & Abdominal Exam: Soft. absent: Tenderness - Extremities Exam Extremities Exam: Normal Inspection, Pedal Edema - Neurological Exam Neurological Exam: Awake, CN II-XII Intact - Skin Skin Exam: Dry, Warm Assessment and Plan (1) IZZY (acute kidney injury) Status: Acute (2) Bacteremia due to Gram-negative bacteria Status: Acute (3) CKD (chronic kidney disease) Status: Acute (4) Sepsis Status: Acute (5) Renal calculus Status: Acute (6) CAD (coronary artery disease) Status: Acute (7) Bacteremia Status: Resolved (8) UTI (urinary tract infection) Status: Resolved - Assessment and Plan (Free Text) Plan: IV fluids/ IV ABs repeat chemistries BS management await PICC
[2018-03-10] MEDS: Sodium Chloride 0.9% 1,000 ML IV SCH (14:10)
--- NOTE | 2018-03-10 17:51 | CP.PCM.PN ---
Subjective - Date & Time of Evaluation Date of Evaluation: 03/10/18 Time of Evaluation: 17:48 - Subjective Subjective: INFECTIOUS DISEAES PROGRESS NOTES INGA MENG MD, FACP 5T 562-B 03/10/2018 CHART REVIEWED PT EXAMINED CASE DISCUSSED CLINICALLY NOTED REPEAT BLOOD C/S ORDERED RECOMMENDED REPEAT URINE C/S STILL DEMONSTRATES THE PROVEDENZIA STUARTI-DESPITE APPROPIATE AB SEE DETAILED ORDERS MAY USE PO VANTIN INSTEAD OF IV ROCEPHIN IF NECESSARY. Objective - Vital Signs/Intake and Output Vital Signs (last 24 hours): Temp Pulse Resp BP Pulse Ox 97.8 F 64 20 147/68 95 03/10/18 15:48 03/10/18 15:48 03/10/18 15:48 03/10/18 15:48 03/10/18 15:48 Intake and Output: 03/10/18 03/10/18 06:59 18:59 Intake Total 400 275 Output Total 1700 300 Balance -1300 -25 - Medications Medications: Current Medications Acetaminophen (Tylenol 325mg Tab) 650 mg PO Q4 PRN PRN Reason: Pain, Mild (1-3) Last Admin: 03/04/18 21:33 Dose: 650 mg Al Hydrox/Mg Hydrox/Simethicone (Maalox 30 Ml) 30 ml PO Q8 PRN PRN Reason: Indigestion / Heartburn Last Admin: 03/10/18 09:57 Dose: 30 ml Alprazolam (Xanax) 0.5 mg PO Q8H PRN PRN Reason: Anxiety Last Admin: 03/10/18 10:50 Dose: 0.5 mg Aspirin (Aspirin Chewable) 81 mg PO DAILY [facility] Last Admin: 03/10/18 10:50 Dose: 81 mg Clopidogrel Bisulfate (Plavix) 75 mg PO DAILY [facility] Last Admin: 03/10/18 10:50 Dose: 75 mg Diphenhydramine HCl (Benadryl) 25 mg PO Q8 PRN PRN Reason: Itching / Pruritus Last Admin: 03/10/18 11:08 Dose: 25 mg Fluoxetine HCl (Prozac) 10 mg PO DAILY [facility] Last Admin: 03/10/18 10:50 Dose: 10 mg Gabapentin (Neurontin) 300 mg PO BID [facility] Last Admin: 03/10/18 10:50 Dose: 300 mg Heparin Sodium (Porcine) (Heparin) 5,000 units SC Q8 [facility] Last Admin: 03/10/18 14:09 Dose: 5,000 units Daptomycin 500 mg/ Sodium (Chloride) 100 mls @ 100 mls/hr IV Q48H [facility]; Protocol Stop: 03/11/18 20:01 Last Admin: 03/08/18 21:58 Dose: 100 mls/hr Ceftriaxone Sodium 1 gm/ (Sodium Chloride) 100 mls @ 100 mls/hr IVPB Q24H [facility]; Protocol Last Admin: 03/10/18 14:10 Dose: 100 mls/hr Sodium Chloride (Sodium Chloride 0.9%) 1,000 mls @ 75 mls/hr IV .[id number] [facility] Last Admin: 03/10/18 14:10 Dose: 75 mls/hr Amikacin Sulfate 250 mg/ (Sodium Chloride) 101 mls @ 100 mls/hr IV STAT [facility]; Protocol Stop: 03/10/18 18:46 Insulin Glargine (Lantus) 10 unit SC HS [facility] Last Admin: 03/09/18 21:25 Dose: 10 unit Insulin Human Regular (Novolin R) 0 unit SC ACHS [facility]; Protocol Last Admin: 03/10/18 17:14 Dose: 6 unit Loperamide HCl (Imodium) 1 mg PO DAILY PRN PRN Reason: Diarrhea Nystatin (Mycostatin Cream) 0 ea TOP TID [facility] Last Admin: 03/10/18 14:10 Dose: 1 applic Ondansetron HCl (Zofran Inj) 4 mg IVP Q6H PRN PRN Reason: Nausea/Vomiting Rosuvastatin Calcium (Crestor) 5 mg PO HS [facility] Last Admin: 03/09/18 21:24 Dose: 5 mg Sitagliptin Phosphate (Januvia) 25 mg PO DAILY [facility] Last Admin: 03/10/18 10:50 Dose: 25 mg - Labs Labs: 03/10/18 11:16 03/10/18 11:16
[2018-03-10] MEDS: DAPTOmycin 500 MG in Sodium Chloride 0.9% 100 ML IV SCH (19:49)
[2018-03-10] MEDS: (Lantus) Insulin Glargine, Recombinant SC SCH (21:40)
[2018-03-10] MEDS ORDERED: (Lantus) Insulin Glargine, Recombinant SC SCH (22:23)
[2018-03-10] MEDS ORDERED: (Lantus) Insulin Glargine, Recombinant SC ONE (22:25)
[2018-03-11] MEDS: Sodium Chloride 0.9% 1,000 ML IV SCH ×3 (05:03→16:55)
[2018-03-11 07:53] LABS: HEMOGLOBIN 9.1 g/dL (11.0-16.0); MEAN CELL VOLUME 88.4 fL (81.0-99.0); MEAN CORPUSCULAR HEMOGLOBIN 29.1 pg (27.0-31.0); MEAN CORPUSCULAR HGB CONC 32.9 g/dL (33.0-37.0); MEAN PLATELET VOLUME 7.9 fL (7.2-11.7); RBC 3.14 Mil/uL (3.80-5.20); RED CELL DISTRIBUTION WIDTH 15.2 % (11.5-14.5); WHITE BLOOD COUNT 13.4 K/uL (4.8-10.8)
[2018-03-11 08:29] LABS: ALB/GLOB RATIO 0.8 (1.0-2.1); CALCIUM 7.9 mg/dl (8.6-10.4)
[2018-03-11] MEDS: (Novolin R) Insulin Human Regular 100 units/ml vial SC SCH ×4 (09:12→22:29)
--- NOTE | 2018-03-11 09:18 | CP.PCM.PN ---
Subjective - Date & Time of Evaluation Date of Evaluation: 03/11/18 Time of Evaluation: 09:16 - Subjective Subjective: Feels better afebrile now HTN increases creat decreasing; UO better Objective - Vital Signs/Intake and Output Vital Signs (last 24 hours): Temp Pulse Resp BP Pulse Ox 97.2 F L 72 20 176/77 H 94 L 03/11/18 08:30 03/11/18 08:30 03/11/18 08:30 03/11/18 08:30 03/11/18 08:30 Intake and Output: 03/11/18 03/11/18 06:59 18:59 Intake Total 660 Output Total 2100 Balance -1440 - Medications Medications: Current Medications Acetaminophen (Tylenol 325mg Tab) 650 mg PO Q4 PRN PRN Reason: Pain, Mild (1-3) Last Admin: 03/04/18 21:33 Dose: 650 mg Al Hydrox/Mg Hydrox/Simethicone (Maalox 30 Ml) 30 ml PO Q8 PRN PRN Reason: Indigestion / Heartburn Last Admin: 03/10/18 09:57 Dose: 30 ml Alprazolam (Xanax) 0.5 mg PO Q8H PRN PRN Reason: Anxiety Last Admin: 03/10/18 21:47 Dose: 0.5 mg Amlodipine Besylate (Norvasc) 10 mg PO DAILY [facility] Aspirin (Aspirin Chewable) 81 mg PO DAILY [facility] Last Admin: 03/10/18 10:50 Dose: 81 mg Clopidogrel Bisulfate (Plavix) 75 mg PO DAILY [facility] Last Admin: 03/10/18 10:50 Dose: 75 mg Fluoxetine HCl (Prozac) 10 mg PO DAILY [facility] Last Admin: 03/10/18 10:50 Dose: 10 mg Gabapentin (Neurontin) 300 mg PO BID [facility] Last Admin: 03/10/18 18:21 Dose: 300 mg Heparin Sodium (Porcine) (Heparin) 5,000 units SC Q8 [facility] Last Admin: 03/11/18 05:46 Dose: 5,000 units Daptomycin 500 mg/ Sodium (Chloride) 100 mls @ 100 mls/hr IV Q48H [facility]; Protocol Stop: 03/11/18 20:01 Last Admin: 03/10/18 19:49 Dose: 100 mls/hr Ceftriaxone Sodium 1 gm/ (Sodium Chloride) 100 mls @ 100 mls/hr IVPB Q24H [facility]; Protocol Last Admin: 03/10/18 14:10 Dose: 100 mls/hr Sodium Chloride (Sodium Chloride 0.9%) 1,000 mls @ 75 mls/hr IV .[id number] [facility] Last Admin: 03/11/18 06:05 Dose: 75 mls/hr Insulin Glargine (Lantus) 20 unit SC Q12 [facility] Insulin Human Regular (Novolin R) 0 unit SC ACHS [facility]; Protocol Last Admin: 03/11/18 09:12 Dose: 8 unit Loperamide HCl (Imodium) 1 mg PO DAILY PRN PRN Reason: Diarrhea Nystatin (Mycostatin Cream) 0 ea TOP TID [facility] Last Admin: 03/10/18 18:21 Dose: 1 applic Rosuvastatin Calcium (Crestor) 5 mg PO HS [facility] Last Admin: 03/10/18 21:40 Dose: 5 mg Sitagliptin Phosphate (Januvia) 25 mg PO DAILY [facility] Last Admin: 03/10/18 10:50 Dose: 25 mg - Labs Labs: 03/11/18 07:42 03/11/18 07:42 - Constitutional Appears: No Acute Distress, Chronically Ill - Head Exam Head Exam: ATRAUMATIC, NORMAL INSPECTION - Eye Exam Eye Exam: EOMI, Normal appearance - Neck Exam Neck Exam: Normal Inspection. absent: Tenderness - Respiratory Exam Respiratory Exam: Clear to Ausculation Bilateral, NORMAL BREATHING PATTERN - Cardiovascular Exam Cardiovascular Exam: REGULAR RHYTHM, +S1 - GI/Abdominal Exam GI & Abdominal Exam: Soft. absent: Tenderness - Extremities Exam Extremities Exam: Normal Inspection. absent: Tenderness - Neurological Exam Neurological Exam: Awake, CN II-XII Intact - Skin Skin Exam: Dry, Warm Assessment and Plan (1) IZZY (acute kidney injury) Status: Acute (2) Bacteremia due to Gram-negative bacteria Status: Acute (3) CKD (chronic kidney disease) Status: Acute (4) Sepsis Status: Acute (5) Renal calculus Status: Acute (6) CAD (coronary artery disease) Status: Acute (7) Bacteremia Status: Resolved (8) UTI (urinary tract infection) Status: Resolved - Assessment and Plan (Free Text) Plan: increase BP control IV fluids for now IV ABs as per ID
[2018-03-11] MEDS: (Lantus) Insulin Glargine, Recombinant SC SCH ×2 (10:11→21:35)
[2018-03-11] MEDS: Nystatin 100,000 Units/gm Cream(15 gm) TOP SCH ×3 (10:21→17:31)
--- NOTE | 2018-03-11 19:43 | CP.PCM.PN ---
Subjective - Date & Time of Evaluation Date of Evaluation: 03/11/18 Time of Evaluation: 19:36 - Subjective Subjective: INFECTIOUS DISEASE PROGRESS NOTES INGA MENG MD, FACP 5T 562-B 03/11/2018 CHART REVIEWED PT EXAMINED CASE DISCUSSED WITH CLINICALLY ORIENTED STAFF AND OTHERS IR CATH STILL IN, TO BE REMOVED GIVEN EXTRA GRAM NEG COVERAGE FOR HER PROVEDENTIA STUARTII LAST NIGHT AND REPEATED BLOOD C/S-WILL MANAGE ACCORDINGLY PICCLINE IN DISCUSSED TO D/C CUBICIN AND ONLY CONTINUE ROCEPHIN. PHYSICIAN ID CARE ADMINISTERED FOR PT WELL CARE AND HOPEFULLY TO MANAGE ACCORDINGLY. Feels better afebrile now HTN increases creat decreasing; UO better Objective - Vital Signs/Intake and Output Vital Signs (last 24 hours): Temp Pulse Resp BP Pulse Ox 97.2 F L 72 20 176/77 H 94 L 03/11/18 08:30 03/11/18 08:30 03/11/18 08:30 03/11/18 08:30 03/11/18 08:30 Intake and Output: 03/11/18 03/11/18 06:59 18:59 Intake Total 660 Output Total 2100 Balance -1440 - Medications Medications: Current Medications Acetaminophen (Tylenol 325mg Tab) 650 mg PO Q4 PRN PRN Reason: Pain, Mild (1-3) Last Admin: 03/04/18 21:33 Dose: 650 mg Al Hydrox/Mg Hydrox/Simethicone (Maalox 30 Ml) 30 ml PO Q8 PRN PRN Reason: Indigestion / Heartburn Last Admin: 03/10/18 09:57 Dose: 30 ml Alprazolam (Xanax) 0.5 mg PO Q8H PRN PRN Reason: Anxiety Last Admin: 03/10/18 21:47 Dose: 0.5 mg Amlodipine Besylate (Norvasc) 10 mg PO DAILY [facility] Aspirin (Aspirin Chewable) 81 mg PO DAILY [facility] Last Admin: 03/10/18 10:50 Dose: 81 mg Clopidogrel Bisulfate (Plavix) 75 mg PO DAILY [facility] Last Admin: 03/10/18 10:50 Dose: 75 mg Fluoxetine HCl (Prozac) 10 mg PO DAILY [facility] Last Admin: 03/10/18 10:50 Dose: 10 mg Gabapentin (Neurontin) 300 mg PO BID [facility] Last Admin: 03/10/18 18:21 Dose: 300 mg Heparin Sodium (Porcine) (Heparin) 5,000 units SC Q8 [facility] Last Admin: 03/11/18 05:46 Dose: 5,000 units Daptomycin 500 mg/ Sodium (Chloride) 100 mls @ 100 mls/hr IV Q48H [facility]; Protocol Stop: 03/11/18 20:01 Last Admin: 03/10/18 19:49 Dose: 100 mls/hr Ceftriaxone Sodium 1 gm/ (Sodium Chloride) 100 mls @ 100 mls/hr IVPB Q24H [facility]; Protocol Last Admin: 03/10/18 14:10 Dose: 100 mls/hr Sodium Chloride (Sodium Chloride 0.9%) 1,000 mls @ 75 mls/hr IV .[id number] [facility] Last Admin: 03/11/18 06:05 Dose: 75 mls/hr Insulin Glargine (Lantus) 20 unit SC Q12 [facility] Insulin Human Regular (Novolin R) 0 unit SC ACHS [facility]; Protocol Last Admin: 03/11/18 09:12 Dose: 8 unit Loperamide HCl (Imodium) 1 mg PO DAILY PRN PRN Reason: Diarrhea Nystatin (Mycostatin Cream) 0 ea TOP TID [facility] Last Admin: 03/10/18 18:21 Dose: 1 applic Rosuvastatin Calcium (Crestor) 5 mg PO HS [facility] Last Admin: 03/10/18 21:40 Dose: 5 mg Sitagliptin Phosphate (Januvia) 25 mg PO DAILY [facility] Last Admin: 03/10/18 10:50 Dose: 25 mg - Labs Labs: 03/11/18 07:42 03/11/18 07:42 - Constitutional Appears: No Acute Distress, Chronically Ill - Head Exam Head Exam: ATRAUMATIC, NORMAL INSPECTION - Eye Exam Eye Exam: EOMI, Normal appearance - Neck Exam Neck Exam: Normal Inspection. absent: Tenderness - Respiratory Exam Respiratory Exam: Clear to Ausculation Bilateral, NORMAL BREATHING PATTERN - Cardiovascular Exam Cardiovascular Exam: REGULAR RHYTHM, +S1 - GI/Abdominal Exam GI & Abdominal Exam: Soft. absent: Tenderness - Extremities Exam Extremities Exam: Normal Inspection. absent: Tenderness - Neurological Exam Neurological Exam: Awake, CN II-XII Intact - Skin Skin Exam: Dry, Warm Assessment and Plan (1) IZZY (acute kidney injury) Status: Acute (2) Bacteremia due to Gram-negative bacteria Status: Acute (3) CKD (chronic kidney disease) Status: Acute (4) Sepsis Status: Acute (5) Renal calculus Status: Acute (6) CAD (coronary artery disease) Status: Acute (7) Bacteremia Status: Resolved (8) UTI (urinary tract infection) Status: Resolved - Assessment and Plan (Free Text) Plan: increase BP control IV fluids for now IV ABs ORDERED. Objective - Vital Signs/Intake and Output Vital Signs (last 24 hours): Temp Pulse Resp BP Pulse Ox 97.8 F 80 20 136/68 94 L 03/11/18 15:40 03/11/18 17:30 03/11/18 15:40 03/11/18 17:30 03/11/18 15:40 Intake and Output: 03/11/18 03/12/18 18:59 06:59 Intake Total 525 Balance 525 - Medications Medications: Current Medications Acetaminophen (Tylenol 325mg Tab) 650 mg PO Q4 PRN PRN Reason: Pain, Mild (1-3) Last Admin: 03/11/18 10:14 Dose: 650 mg Al Hydrox/Mg Hydrox/Simethicone (Maalox 30 Ml) 30 ml PO Q8 PRN PRN Reason: Indigestion / Heartburn Last Admin: 03/10/18 09:57 Dose: 30 ml Alprazolam (Xanax) 0.5 mg PO Q8H PRN PRN Reason: Anxiety Last Admin: 03/11/18 10:14 Dose: 0.5 mg Amlodipine Besylate (Norvasc) 10 mg PO DAILY [facility] Last Admin: 03/11/18 10:10 Dose: 10 mg Aspirin (Aspirin Chewable) 81 mg PO DAILY [facility] Last Admin: 03/11/18 10:10 Dose: 81 mg Clonidine HCl (Catapres) 0.1 mg PO BID [facility] Last Admin: 03/11/18 17:31 Dose: 0.1 mg Clopidogrel Bisulfate (Plavix) 75 mg PO DAILY [facility] Last Admin: 03/11/18 10:10 Dose: 75 mg Fluoxetine HCl (Prozac) 10 mg PO DAILY [facility] Last Admin: 03/11/18 10:10 Dose: 10 mg Gabapentin (Neurontin) 300 mg PO BID [facility] Last Admin: 03/11/18 17:31 Dose: 300 mg Heparin Sodium (Porcine) (Heparin) 5,000 units SC Q8 [facility] Last Admin: 03/11/18 13:43 Dose: 5,000 units Daptomycin 500 mg/ Sodium (Chloride) 100 mls @ 100 mls/hr IV Q48H [facility]; Protocol Stop: 03/11/18 20:01 Last Admin: 03/10/18 19:49 Dose: 100 mls/hr Ceftriaxone Sodium 1 gm/ (Sodium Chloride) 100 mls @ 100 mls/hr IVPB Q24H [facility]; Protocol Last Admin: 03/11/18 13:43 Dose: 100 mls/hr Sodium Chloride (Sodium Chloride 0.9%) 1,000 mls @ 75 mls/hr IV .[id number] [facility] Last Admin: 03/11/18 06:05 Dose: 75 mls/hr Insulin Glargine (Lantus) 20 unit SC Q12 [facility] Last Admin: 03/11/18 10:11 Dose: 20 unit Insulin Human Regular (Novolin R) 0 unit SC ACHS [facility]; Protocol Last Admin: 03/11/18 17:31 Dose: 10 unit Loperamide HCl (Imodium) 1 mg PO DAILY PRN PRN Reason: Diarrhea Nystatin (Mycostatin Cream) 0 ea TOP TID [facility] Last Admin: 03/11/18 17:31 Dose: 1 applic Rosuvastatin Calcium (Crestor) 5 mg PO HS [facility] Last Admin: 03/10/18 21:40 Dose: 5 mg Sitagliptin Phosphate (Januvia) 25 mg PO DAILY [facility] Last Admin: 03/11/18 10:10 Dose: 25 mg - Labs Labs: 03/11/18 07:42 03/11/18 07:42
[2018-03-12] MEDS: Aluminum Hydroxide/Magnesium Hydroxide Susp (30 mL) PO PRN (04:06)
[2018-03-12] MEDS: Sodium Chloride 0.9% 1,000 ML IV SCH ×2 (04:06→20:37)
[2018-03-12] MEDS: (Novolin R) Insulin Human Regular 100 units/ml vial SC SCH ×4 (08:08→21:36)
[2018-03-12] MEDS: Nystatin 100,000 Units/gm Cream(15 gm) TOP SCH ×3 (11:11→17:25)
[2018-03-12] MEDS: (Lantus) Insulin Glargine, Recombinant SC SCH ×2 (11:11→21:35)
--- NOTE | 2018-03-12 13:09 | CP.PCM.PN ---
Subjective - Date & Time of Evaluation Date of Evaluation: 03/12/18 Time of Evaluation: 13:07 - Subjective Subjective: alert no new complaint afebrilw now HTN increased tolerating IV fluids Objective - Vital Signs/Intake and Output Vital Signs (last 24 hours): Temp Pulse Resp BP Pulse Ox 97.6 F 73 18 177/79 H 95 03/12/18 07:00 03/12/18 11:09 03/12/18 07:00 03/12/18 11:09 03/12/18 11:09 Intake and Output: 03/12/18 03/12/18 06:59 18:59 Intake Total 1570 Output Total 2700 Balance -1130 - Medications Medications: Current Medications Acetaminophen (Tylenol 325mg Tab) 650 mg PO Q4 PRN PRN Reason: Pain, Mild (1-3) Last Admin: 03/11/18 10:14 Dose: 650 mg Al Hydrox/Mg Hydrox/Simethicone (Maalox 30 Ml) 30 ml PO Q8 PRN PRN Reason: Indigestion / Heartburn Last Admin: 03/12/18 04:06 Dose: 30 ml Alprazolam (Xanax) 0.5 mg PO Q8H PRN PRN Reason: Anxiety Last Admin: 03/12/18 11:10 Dose: 0.5 mg Amlodipine Besylate (Norvasc) 10 mg PO DAILY [facility] Last Admin: 03/12/18 11:11 Dose: 10 mg Aspirin (Aspirin Chewable) 81 mg PO DAILY [facility] Last Admin: 03/12/18 11:10 Dose: 81 mg Clonidine HCl (Catapres) 0.1 mg PO BID [facility] Last Admin: 03/12/18 11:11 Dose: 0.1 mg Clopidogrel Bisulfate (Plavix) 75 mg PO DAILY [facility] Last Admin: 03/12/18 11:10 Dose: 75 mg Fluoxetine HCl (Prozac) 10 mg PO DAILY [facility] Last Admin: 03/12/18 11:11 Dose: 10 mg Gabapentin (Neurontin) 300 mg PO BID [facility] Last Admin: 03/12/18 11:11 Dose: 300 mg Heparin Sodium (Porcine) (Heparin) 5,000 units SC Q8 [facility] Last Admin: 03/12/18 05:35 Dose: 5,000 units Ceftriaxone Sodium 1 gm/ (Sodium Chloride) 100 mls @ 100 mls/hr IVPB Q24H [facility]; Protocol Last Admin: 03/11/18 13:43 Dose: 100 mls/hr Sodium Chloride (Sodium Chloride 0.9%) 1,000 mls @ 75 mls/hr IV .[id number] [facility] Last Admin: 03/12/18 04:06 Dose: 75 mls/hr Insulin Glargine (Lantus) 20 unit SC Q12 [facility] Last Admin: 03/12/18 11:11 Dose: 20 unit Insulin Human Regular (Novolin R) 0 unit SC ACHS [facility]; Protocol Last Admin: 03/12/18 08:08 Dose: 6 unit Loperamide HCl (Imodium) 1 mg PO DAILY PRN PRN Reason: Diarrhea Nystatin (Mycostatin Cream) 0 ea TOP TID [facility] Last Admin: 03/12/18 11:11 Dose: 1 applic Rosuvastatin Calcium (Crestor) 5 mg PO HS [facility] Last Admin: 03/11/18 21:35 Dose: 5 mg Sitagliptin Phosphate (Januvia) 25 mg PO DAILY [facility] Last Admin: 03/12/18 11:11 Dose: 25 mg - Labs Labs: 03/11/18 07:42 03/11/18 07:42 - Constitutional Appears: No Acute Distress, Chronically Ill - Head Exam Head Exam: ATRAUMATIC, NORMAL INSPECTION - Eye Exam Eye Exam: EOMI, Normal appearance - Neck Exam Neck Exam: Normal Inspection. absent: Tenderness - Respiratory Exam Respiratory Exam: Clear to Ausculation Bilateral, NORMAL BREATHING PATTERN - Cardiovascular Exam Cardiovascular Exam: REGULAR RHYTHM, +S1 - GI/Abdominal Exam GI & Abdominal Exam: Soft. absent: Tenderness - Extremities Exam Extremities Exam: Normal Inspection, Pedal Edema - Neurological Exam Neurological Exam: Awake, CN II-XII Intact - Skin Skin Exam: Dry, Warm Assessment and Plan (1) IZZY (acute kidney injury) Status: Acute (2) Bacteremia due to Gram-negative bacteria Status: Acute (3) CKD (chronic kidney disease) Status: Acute (4) Sepsis Status: Acute (5) Renal calculus Status: Acute (6) CAD (coronary artery disease) Status: Acute (7) Bacteremia Status: Resolved (8) UTI (urinary tract infection) Status: Resolved - Assessment and Plan (Free Text) Plan: repeat chemistries increase BP meds IV ABs
--- NOTE | 2018-03-12 18:39 | CP.PCM.PN ---
Subjective - Date & Time of Evaluation Date of Evaluation: 03/12/18 Time of Evaluation: 18:35 - Subjective Subjective: INFECTIOUS DISEASE PROGRESS NOTES INGA MENG MD, FACP 03/12/2018 5T 562-B CHART REVIEWED PT EXAMINED CASE DISCUSSED alert no new complaint AFEBRILE now VSS-CHECK BP EATING BETTER LESS SUPRAPUBIC PAIN tolerating IV fluids [place] OUT AND URINATING OK FINISH 5 MORE DAYS OF ROCEPHIN Objective - Vital Signs/Intake and Output Vital Signs (last 24 hours): Temp Pulse Resp BP Pulse Ox 97.6 F 73 18 177/79 H 95 03/12/18 07:00 03/12/18 11:09 03/12/18 07:00 03/12/18 11:09 03/12/18 11:09 Intake and Output: 03/12/18 03/12/18 06:59 18:59 Intake Total 1570 Output Total 2700 Balance -1130 - Medications Medications: Current Medications Acetaminophen (Tylenol 325mg Tab) 650 mg PO Q4 PRN PRN Reason: Pain, Mild (1-3) Last Admin: 03/11/18 10:14 Dose: 650 mg Al Hydrox/Mg Hydrox/Simethicone (Maalox 30 Ml) 30 ml PO Q8 PRN PRN Reason: Indigestion / Heartburn Last Admin: 03/12/18 04:06 Dose: 30 ml Alprazolam (Xanax) 0.5 mg PO Q8H PRN PRN Reason: Anxiety Last Admin: 03/12/18 11:10 Dose: 0.5 mg Amlodipine Besylate (Norvasc) 10 mg PO DAILY [facility] Last Admin: 03/12/18 11:11 Dose: 10 mg Aspirin (Aspirin Chewable) 81 mg PO DAILY [facility] Last Admin: 03/12/18 11:10 Dose: 81 mg Clonidine HCl (Catapres) 0.1 mg PO BID [facility] Last Admin: 03/12/18 11:11 Dose: 0.1 mg Clopidogrel Bisulfate (Plavix) 75 mg PO DAILY [facility] Last Admin: 03/12/18 11:10 Dose: 75 mg Fluoxetine HCl (Prozac) 10 mg PO DAILY [facility] Last Admin: 03/12/18 11:11 Dose: 10 mg Gabapentin (Neurontin) 300 mg PO BID [facility] Last Admin: 01/11/19 11:11 Dose: 300 mg Heparin Sodium (Porcine) (Heparin) 5,000 units SC Q8 [facility] Last Admin: 03/12/18 05:35 Dose: 5,000 units Ceftriaxone Sodium 1 gm/ (Sodium Chloride) 100 mls @ 100 mls/hr IVPB Q24H [facility]; Protocol Last Admin: 03/11/18 13:43 Dose: 100 mls/hr Sodium Chloride (Sodium Chloride 0.9%) 1,000 mls @ 75 mls/hr IV .[id number] [facility] Last Admin: 03/12/18 04:06 Dose: 75 mls/hr Insulin Glargine (Lantus) 20 unit SC Q12 [facility] Last Admin: 03/12/18 11:11 Dose: 20 unit Insulin Human Regular (Novolin R) 0 unit SC ACHS [facility]; Protocol Last Admin: 03/12/18 08:08 Dose: 6 unit Loperamide HCl (Imodium) 1 mg PO DAILY PRN PRN Reason: Diarrhea Nystatin (Mycostatin Cream) 0 ea TOP TID [facility] Last Admin: 03/12/18 11:11 Dose: 1 applic Rosuvastatin Calcium (Crestor) 5 mg PO HS [facility] Last Admin: 03/11/18 21:35 Dose: 5 mg Sitagliptin Phosphate (Januvia) 25 mg PO DAILY [facility] Last Admin: 03/12/18 11:11 Dose: 25 mg - Labs Labs: 03/11/18 07:42 03/11/18 07:42 - Constitutional Appears: No Acute Distress, Chronically Ill - Head Exam Head Exam: ATRAUMATIC, NORMAL INSPECTION - Eye Exam Eye Exam: EOMI, Normal appearance - Neck Exam Neck Exam: Normal Inspection. absent: Tenderness - Respiratory Exam Respiratory Exam: Clear to Ausculation Bilateral, NORMAL BREATHING PATTERN - Cardiovascular Exam Cardiovascular Exam: REGULAR RHYTHM, +S1 - GI/Abdominal Exam GI & Abdominal Exam: Soft. absent: Tenderness - Extremities Exam Extremities Exam: Normal Inspection, Pedal Edema - Neurological Exam Neurological Exam: Awake, CN II-XII Intact - Skin Skin Exam: Dry, Warm Assessment and Plan (1) IZZY (acute kidney injury) Status: Acute (2) Bacteremia due to Gram-negative bacteria Status: Acute (3) CKD (chronic kidney disease) Status: Acute (4) Sepsis Status: Acute/ PROTEUR AND PROVEDENZIA (5) Renal calculus Status: Acute (6) CAD (coronary artery disease) Status: Acute (7) Bacteremia Status: Resolved (8) UTI (urinary tract infection) Status: Resolved/PROVEDENZIA - Assessment and Plan (Free Text) Plan: repeat chemistries increase BP meds IV ABs Objective - Vital Signs/Intake and Output Vital Signs (last 24 hours): Temp Pulse Resp BP Pulse Ox 97.6 F 73 18 177/79 H 95 03/12/18 07:00 03/12/18 11:09 03/12/18 07:00 03/12/18 11:09 03/12/18 11:09 Intake and Output: 03/12/18 03/12/18 06:59 18:59 Intake Total 1570 525 Output Total 2700 Balance -1130 525 - Medications Medications: Current Medications Acetaminophen (Tylenol 325mg Tab) 650 mg PO Q4 PRN PRN Reason: Pain, Mild (1-3) Last Admin: 03/11/18 10:14 Dose: 650 mg Al Hydrox/Mg Hydrox/Simethicone (Maalox 30 Ml) 30 ml PO Q8 PRN PRN Reason: Indigestion / Heartburn Last Admin: 03/12/18 04:06 Dose: 30 ml Alprazolam (Xanax) 0.5 mg PO Q8H PRN PRN Reason: Anxiety Last Admin: 03/12/18 11:10 Dose: 0.5 mg Amlodipine Besylate (Norvasc) 10 mg PO DAILY [facility] Last Admin: 03/12/18 11:11 Dose: 10 mg Aspirin (Aspirin Chewable) 81 mg PO DAILY [facility] Last Admin: 03/12/18 11:10 Dose: 81 mg Clonidine HCl (Catapres) 0.2 mg PO BID [facility] Last Admin: 03/12/18 17:25 Dose: 0.2 mg Clopidogrel Bisulfate (Plavix) 75 mg PO DAILY [facility] Last Admin: 03/12/18 11:10 Dose: 75 mg Fluoxetine HCl (Prozac) 10 mg PO DAILY [facility] Last Admin: 03/12/18 11:11 Dose: 10 mg Gabapentin (Neurontin) 300 mg PO BID [facility] Last Admin: 03/12/18 17:25 Dose: 300 mg Heparin Sodium (Porcine) (Heparin) 5,000 units SC Q8 [facility] Last Admin: 03/12/18 13:16 Dose: 5,000 units Ceftriaxone Sodium 1 gm/ (Sodium Chloride) 100 mls @ 100 mls/hr IVPB Q24H [facility]; Protocol Last Admin: 03/12/18 13:16 Dose: 100 mls/hr Sodium Chloride (Sodium Chloride 0.9%) 1,000 mls @ 75 mls/hr IV .[id number] [facility] Last Admin: 03/12/18 04:06 Dose: 75 mls/hr Insulin Glargine (Lantus) 20 unit SC Q12 [facility] Last Admin: 03/12/18 11:11 Dose: 20 unit Insulin Human Regular (Novolin R) 0 unit SC ACHS [facility]; Protocol Last Admin: 03/12/18 17:26 Dose: 8 unit Loperamide HCl (Imodium) 1 mg PO DAILY PRN PRN Reason: Diarrhea Nystatin (Mycostatin Cream) 0 ea TOP TID [facility] Last Admin: 03/12/18 17:25 Dose: 1 applic Rosuvastatin Calcium (Crestor) 5 mg PO HS [facility] Last Admin: 03/11/18 21:35 Dose: 5 mg Sitagliptin Phosphate (Januvia) 25 mg PO DAILY [facility] Last Admin: 03/12/18 11:11 Dose: 25 mg - Labs Labs: 03/11/18 07:42 03/11/18 07:42
[2018-03-13 00:25] VITALS: O2SAT 95
[2018-03-13] MEDS: Sodium Chloride 0.9% 1,000 ML IV SCH ×2 (00:42→10:09)
[2018-03-13] MEDS: Aluminum Hydroxide/Magnesium Hydroxide Susp (30 mL) PO PRN (05:58)
[2018-03-13 08:31] LABS: ALB/GLOB RATIO 0.9 (1.0-2.1); ALBUMIN 3.1 g/dL (3.5-5.0)
[2018-03-13] MEDS: (Novolin R) Insulin Human Regular 100 units/ml vial SC SCH ×3 (09:06→17:01)
[2018-03-13] MEDS: (Lantus) Insulin Glargine, Recombinant SC SCH (10:08)
[2018-03-13] MEDS: Nystatin 100,000 Units/gm Cream(15 gm) TOP SCH ×3 (10:09→17:55)
--- NOTE | 2018-03-13 10:31 | CP.PCM.PN ---
Subjective - Date & Time of Evaluation Date of Evaluation: 03/13/18 Time of Evaluation: 10:29 - Subjective Subjective: Notes reviewed Comfortable in bed Discussed care with nurse at bedside, considerations for fdc transfer ID [email or web address] noted NO fever or chills NO cp or sob No n/v/d No urinary complaints Objective - Vital Signs/Intake and Output Vital Signs (last 24 hours): Temp Pulse Resp BP Pulse Ox 97.8 F 61 20 133/68 95 03/13/18 00:00 03/13/18 00:00 03/13/18 00:00 03/13/18 00:00 03/13/18 00:00 Intake and Output: 03/13/18 03/13/18 06:59 18:59 Intake Total 150 Output Total 700 Balance -550 - Medications Medications: Current Medications Acetaminophen (Tylenol 325mg Tab) 650 mg PO Q4 PRN PRN Reason: Pain, Mild (1-3) Last Admin: 03/11/18 10:14 Dose: 650 mg Al Hydrox/Mg Hydrox/Simethicone (Maalox 30 Ml) 30 ml PO Q8 PRN PRN Reason: Indigestion / Heartburn Last Admin: 03/13/18 05:58 Dose: 30 ml Alprazolam (Xanax) 0.5 mg PO Q8H PRN PRN Reason: Anxiety Last Admin: 03/13/18 06:02 Dose: 0.5 mg Amlodipine Besylate (Norvasc) 10 mg PO DAILY [facility] Last Admin: 03/12/18 11:11 Dose: 10 mg Aspirin (Aspirin Chewable) 81 mg PO DAILY [facility] Last Admin: 03/13/18 10:09 Dose: 81 mg Clonidine HCl (Catapres) 0.2 mg PO BID [facility] Last Admin: 03/13/18 10:11 Dose: 0.2 mg Clopidogrel Bisulfate (Plavix) 75 mg PO DAILY [facility] Last Admin: 03/13/18 10:08 Dose: 75 mg Fluoxetine HCl (Prozac) 10 mg PO DAILY [facility] Last Admin: 03/13/18 10:08 Dose: 10 mg Gabapentin (Neurontin) 300 mg PO BID [facility] Last Admin: 03/13/18 10:08 Dose: 300 mg Heparin Sodium (Porcine) (Heparin) 5,000 units SC Q8 [facility] Last Admin: 03/13/18 05:58 Dose: 5,000 units Ceftriaxone Sodium 1 gm/ (Sodium Chloride) 100 mls @ 100 mls/hr IVPB Q24H [facility]; Protocol Last Admin: 03/12/18 13:16 Dose: 100 mls/hr Sodium Chloride (Sodium Chloride 0.9%) 1,000 mls @ 75 mls/hr IV .[id number] [facility] Last Admin: 03/13/18 10:09 Dose: Not Given Insulin Glargine (Lantus) 20 unit SC Q12 [facility] Last Admin: 03/13/18 10:08 Dose: 20 unit Insulin Human Regular (Novolin R) 0 unit SC ACHS [facility]; Protocol Last Admin: 03/13/18 09:06 Dose: 8 unit Loperamide HCl (Imodium) 1 mg PO DAILY PRN PRN Reason: Diarrhea Nystatin (Mycostatin Cream) 0 ea TOP TID [facility] Last Admin: 03/13/18 10:09 Dose: 1 applic Rosuvastatin Calcium (Crestor) 5 mg PO HS [facility] Last Admin: 03/12/18 21:35 Dose: 5 mg Sitagliptin Phosphate (Januvia) 25 mg PO DAILY [facility] Last Admin: 03/13/18 10:08 Dose: 25 mg - Labs Labs: 03/11/18 07:42 03/13/18 07:56 - Constitutional Appears: Non-toxic, Chronically Ill - Head Exam Head Exam: ATRAUMATIC, NORMOCEPHALIC - Eye Exam Eye Exam: EOMI, Normal appearance - ENT Exam ENT Exam: Mucous Membranes Moist, Normal Oropharynx - Neck Exam Neck Exam: absent: Lymphadenopathy, Thyromegaly - Respiratory Exam Respiratory Exam: Clear to Ausculation Bilateral. absent: Rales, Rhonchi, Wheezes - Cardiovascular Exam Cardiovascular Exam: +S1, +S2. absent: Rubs - GI/Abdominal Exam GI & Abdominal Exam: Soft, Normal Bowel Sounds - Extremities Exam Extremities Exam: Pedal Edema. absent: Tenderness - Neurological Exam Neurological Exam: Alert, Awake - Skin Skin Exam: Dry, Intact Assessment and Plan (1) Anemia Status: Acute (2) IZZY (acute kidney injury) Status: Acute (3) Bacteremia due to Gram-negative bacteria Status: Acute (4) CAD (coronary artery disease) Status: Acute (5) CKD (chronic kidney disease) Status: Acute (6) Renal calculus Status: Acute (7) Sepsis Status: Acute - Assessment and Plan (Free Text) Assessment: Renal function continues to recover Electrolytes acceptable Monitor bp Complete abx as noted by ID Continue current care Discharge planning noted Can follow up renal function as an outpatient
[2018-03-13 15:45] VITALS: BP 144/73; PULSE 65; RESP 18; TEMP 97.9
--- NOTE | 2018-03-13 16:28 | CP.PCM.PN ---
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 patient seen today awake, alert, states feel s better denies any chest pain, sob, abdominal pain, N/V/D vss and labs reviewed- a febrile and stable ( cr- improved 1.7) Objective - Vital Signs/Intake and Output Vital Signs (last 24 hours): Temp Pulse Resp BP Pulse Ox 97.9 F 65 18 144/73 95 03/13/18 15:00 03/13/18 15:00 03/13/18 15:00 03/13/18 15:00 03/13/18 15:00 Intake and Output: 03/13/18 03/13/18 06:59 18:59 Intake Total 150 480 Output Total 700 700 Balance -550 -220 - Medications Medications: Current Medications Acetaminophen (Tylenol 325mg Tab) 650 mg PO Q4 PRN PRN Reason: Pain, Mild (1-3) Last Admin: 03/11/18 10:14 Dose: 650 mg Al Hydrox/Mg Hydrox/Simethicone (Maalox 30 Ml) 30 ml PO Q8 PRN PRN Reason: Indigestion / Heartburn Last Admin: 03/13/18 05:58 Dose: 30 ml Alprazolam (Xanax) 0.5 mg PO Q8H PRN PRN Reason: Anxiety Last Admin: 03/13/18 06:02 Dose: 0.5 mg Amlodipine Besylate (Norvasc) 10 mg PO DAILY [facility] Last Admin: 03/13/18 12:53 Dose: 10 mg Aspirin (Aspirin Chewable) 81 mg PO DAILY [facility] Last Admin: 03/13/18 10:09 Dose: 81 mg Clonidine HCl (Catapres) 0.2 mg PO BID [facility] Last Admin: 03/13/18 10:11 Dose: 0.2 mg Clopidogrel Bisulfate (Plavix) 75 mg PO DAILY [facility] Last Admin: 03/13/18 10:08 Dose: 75 mg Fluoxetine HCl (Prozac) 10 mg PO DAILY [facility] Last Admin: 03/13/18 10:08 Dose: 10 mg Gabapentin (Neurontin) 300 mg PO BID [facility] Last Admin: 03/13/18 10:08 Dose: 300 mg Heparin Sodium (Porcine) (Heparin) 5,000 units SC Q8 [facility] Last Admin: 03/13/18 13:19 Dose: 5,000 units Insulin Glargine (Lantus) 20 unit SC Q12 [facility] Last Admin: 03/13/18 10:08 Dose: 20 unit Insulin Human Regular (Novolin R) 0 unit SC ACHS [facility]; Protocol Last Admin: 03/13/18 12:50 Dose: 8 unit Loperamide HCl (Imodium) 1 mg PO DAILY PRN PRN Reason: Diarrhea Nystatin (Mycostatin Cream) 0 ea TOP TID [facility] Last Admin: 03/13/18 13:19 Dose: 1 applic Rosuvastatin Calcium (Crestor) 5 mg PO HS [facility] Last Admin: 03/12/18 21:35 Dose: 5 mg Sitagliptin Phosphate (Januvia) 25 mg PO DAILY [facility] Last Admin: 03/13/18 10:08 Dose: 25 mg - Labs Labs: 03/11/18 07:42 03/13/18 07:56 Assessment and Plan - Assessment and Plan (Free Text) Assessment: A/P 72-year-old female with pmhx of of diabetes, hypertension, hypercholesterolemia, CAD, s/p stent, osteoarthritis admitted with abdominal pain/ acute renal failure /UTI repeat blood culture -negative fo r 48 hrs and a febrile D/w Dr. Wayne, cleared fro [place] [facility] [place] [facility] [place] and continue 5 more days of rocephin Discharge plan discussed with patient SW will arrange transportation and contact family an d facility
--- NOTE | 2018-03-15 07:39 | CP.PCM.DIS ---
Provider - Provider Date of Admission: 03/05/18 09:36 Attending physician: Melvin Wayne MD Consults: 03/04/18 19:34 Urology Consult Routine Comment: Consulting Provider: Joelle Cooney Consulting Physician: Joelle Cooney Reason for Consult: left renal stone 03/04/18 19:50 Infectious Disease Consult Stat Comment: Consulting Provider: Hugo Churchill Consulting Physician: Hugo Churchill Reason for Consult: Urosepsis 03/05/18 04:41 Wound Care [Nursing Referral for Wound Care] Routine Comment: Physician Instructions: Reason For Exam: skin breakdown in sacral area 03/05/18 09:37 Nephrology Consult Routine Comment: Consulting Provider: Jareth Diane Consulting Physician: Jareth Diane Reason for Consult: elsy 03/05/18 13:19 Critical Care Consult Routine Comment: sepsis hypotension Consulting Provider: Eris Candelaria Consulting Physician: Eris Candelaria Reason for Consult: sepsis hypotension 03/07/18 10:00 Wound Care [Nursing Referral for Wound Care] Routine Comment: Physician Instructions: Reason For Exam: Left buttock skin breakdown 03/08/18 10:36 Nursing Referral for Wound Care Routine Comment: Physician Instructions: Reason For Exam: sacral wound skin break Time Spent in preparation of Discharge (in minutes): 45 Hospital Course - Lab Results Lab Results: Micro Results 03/10/18 18:50 Blood-Venous Blood Culture - Preliminary NO GROWTH AFTER 4 DAYS 03/10/18 18:20 Blood-Venous Blood Culture - Preliminary NO GROWTH AFTER 4 DAYS 03/08/18 12:58 Urine Urine Culture - Final Providencia Stuartii 03/04/18 18:30 Blood Blood Culture - Final Proteus Mirabilis Staphylococcus Sp Coag Neg 03/04/18 18:30 Blood Gram Stain - Final 03/04/18 18:00 Blood Blood Culture - Final Proteus Mirabilis Staphylococcus Sp Coag Neg 03/04/18 18:00 Blood Gram Stain - Final 03/04/18 16:14 Urine Urine Culture - Final Providencia Stuartii Most Recent Lab Values WBC 13.4 K/uL (4.8-10.8) H 03/11/18 07:42 RBC 3.14 Mil/uL (3.80-5.20) L 03/11/18 07:42 Hgb 9.1 g/dL (11.0-16.0) L 03/11/18 07:42 Hct 27.8 % (34.0-47.0) L 03/11/18 07:42 MCV 88.4 fL (81.0-99.0) 03/11/18 07:42 MCH 29.1 pg (27.0-31.0) 03/11/18 07:42 MCHC 32.9 g/dL (33.0-37.0) L 03/11/18 07:42 RDW 15.2 % (11.5-14.5) H 03/11/18 07:42 Plt Count 464 K/uL (130-400) H 03/11/18 07:42 MPV 7.9 fL (7.2-11.7) 03/11/18 07:42 Neut % (Auto) 80.0 % (50.0-75.0) H 03/10/18 11:16 Lymph % (Auto) 6.9 % (20.0-40.0) L 03/10/18 11:16 Mcminn % (Auto) 7.3 % (0.0-10.0) 03/10/18 11:16 Eos % (Auto) 5.2 % (0.0-4.0) H 03/10/18 11:16 Baso % (Auto) 0.6 % (0.0-2.0) 03/10/18 11:16 Neut # (Auto) 11.0 K/uL (1.8-7.0) H 03/10/18 11:16 Lymph # (Auto) 1.0 K/uL (1.0-4.3) 03/10/18 11:16 Mcminn # (Auto) 1.0 K/uL (0.0-0.8) H 03/10/18 11:16 Eos # (Auto) 0.7 K/uL (0.0-0.7) 03/10/18 11:16 Baso # (Auto) 0.1 K/uL (0.0-0.2) 03/10/18 11:16 Neutrophils % (Manual) 84 % (50-75) H 03/10/18 11:16 Band Neutrophils % 6 % (0-2) H 03/07/18 08:17 Lymphocytes % (Manual) 12 % (20-40) L 03/10/18 11:16 Monocytes % (Manual) 3 % (0-10) 03/10/18 11:16 Eosinophils % (Manual) 1 % (0-4) 03/10/18 11:16 Metamyelocytes % 2 % (0-0) H 03/07/18 08:17 Platelet Estimate Normal (NORMAL) 03/10/18 11:16 Large Platelets Present 03/06/18 07:02 Giant Platelets Present 03/06/18 07:02 RBC Morphology Normal 03/10/18 11:16 Polychromasia Slight 03/09/18 06:18 Hypochromasia (manual) Slight 03/09/18 06:18 Anisocytosis (manual) Slight 03/09/18 06:18 pO2 23 mm/Hg (30-55) L 03/04/18 20:45 VBG pH 7.33 (7.32-7.43) 03/04/18 20:45 VBG pCO2 48 mmHg (40-60) 03/04/18 20:45 VBG HCO3 22.4 mmol/L 03/04/18 20:45 VBG Total CO2 26.8 mmol/L (22-28) 03/04/18 20:45 VBG O2 Sat (Calc) 45.3 % (40-65) 03/04/18 20:45 VBG Base Excess -1.1 mmol/L (0.0-2.0) L 03/04/18 20:45 VBG Potassium 4.2 mmol/L (3.6-5.2) 03/04/18 20:45 Sodium 132.0 mmol/l (132-148) 03/04/18 20:45 Chloride 94.0 mmol/L (98-107) L 03/04/18 20:45 Glucose 328 mg/dl (65-105) H 03/04/18 20:45 Lactate 1.9 mmol/L (0.7-2.1) 03/04/18 20:45 Sodium 132 mmol/L (132-148) 03/13/18 07:56 Potassium 4.6 mmol/L (3.6-5.2) 03/13/18 07:56 Chloride 99 mmol/L (98-107) 03/13/18 07:56 Carbon Dioxide 23 mmol/L (22-30) 03/13/18 07:56 Anion Gap 15 (10-20) 03/13/18 07:56 BUN 38 mg/dL (7-17) H 03/13/18 07:56 Creatinine 1.7 mg/dL (0.7-1.2) H 03/13/18 07:56 Est GFR ( Amer) 36 03/13/18 07:56 Est GFR (Non-Af Amer) 30 03/13/18 07:56 POC Glucose (mg/dL) 255 mg/dL (65-110) H 03/13/18 16:26 Random Glucose 315 mg/dL (65-105) H 03/13/18 07:56 Serum Osmolality 303 mosm/kg (272-300) H 03/06/18 11:09 Calcium 8.0 mg/dl (8.6-10.4) L 03/13/18 07:56 Phosphorus 3.2 mg/dL (2.5-4.5) 03/13/18 07:56 Magnesium 1.9 mg/dL (1.6-2.3) 03/13/18 07:56 Total Bilirubin 0.1 mg/dL (0.2-1.3) L 03/13/18 07:56 AST 13 U/L (14-36) L 03/13/18 07:56 ALT 18 U/L (9-52) 03/13/18 07:56 Alkaline Phosphatase 80 U/L (38-126) 03/13/18 07:56 Total Protein 6.6 g/dL (6.3-8.3) 03/13/18 07:56 Albumin 3.1 g/dL (3.5-5.0) L 03/13/18 07:56 Globulin 3.5 gm/dL (2.2-3.9) 03/13/18 07:56 Albumin/Globulin Ratio 0.9 (1.0-2.1) L 03/13/18 07:56 Lipase 30 U/L (23-300) 03/04/18 15:30 Venous Blood Potassium 4.2 mmol/L (3.6-5.2) 03/04/18 20:45 Urine Color Yellow (YELLOW) 03/04/18 16:14 Urine Clarity Turbid (Clear) 03/04/18 16:14 Urine pH 7.0 (5.0-8.0) 03/04/18 16:14 Ur Specific [place] 1.012 (1.003-1.030) 03/04/18 16:14 Urine Protein 3+ mg/dL (NEGATIVE) H 03/04/18 16:14 Urine Glucose (UA) Normal mg/dL (Normal) 03/04/18 16:14 Urine Ketones Trace mg/dL (NEGATIVE) 03/04/18 16:14 Urine Blood 1+ (NEGATIVE) H 03/04/18 16:14 Urine Nitrate Negative (NEGATIVE) 03/04/18 16:14 Urine Bilirubin Negative (NEGATIVE) 03/04/18 16:14 Urine Urobilinogen 2.0 mg/dL (0.2-1.0) H 03/04/18 16:14 Ur Leukocyte Esterase 2+ Kalpesh/uL (Negative) H 03/04/18 16:14 Urine WBC (Auto) 147 /hpf (0-5) H 03/04/18 16:14 Urine RBC (Auto) 5 /hpf (0-3) H 03/04/18 16:14 Ur Squamous Epith Cells 1 /hpf (0-5) 03/04/18 16:14 Amorphous Sediment Few /ul (<OCC) H 03/04/18 16:14 Urine Bacteria Mod (<OCC) H 03/04/18 16:14 Urine Osmolality 319 mosm/kg (300-1000) 03/06/18 15:05 Ur Random Sodium 51 mmol/L 03/06/18 15:05 Blood Type B POSITIVE 03/06/18 13:41 Antibody Screen Negative 03/06/18 13:41 - Hospital Course Hospital Course: Chief complaint: Abdominal pain HPI: 72-year-old female with history of diabetes, hypertension, hypercholesterolemia history of CAD, status post stent, also history of osteoarthritis was sent from jail because of not feeling well. For 2 days she was having increasing abdominal pain She was also having nausea. Yesterday she had a few episodes of vomiting. Poor appetite. Fever and chills present. Patient in the emergency room was seen, and evaluated. Now she is having in some pain. But poor appetite and not feeling well. She is also pale looking. But she is not in any distress. On past medical history: Diabetes, hypertension, hypercholesterolemia, CAD, status post stent. Surgical history include hysterectomy, cholecystectomy Allergy there was a concern about the questionable penicillin allergy, but in the emergency room patient received Zosyn without any problem. Ex-smoker. Denies any alcohol. Currently jail resident. Review of system: Noted from the chart. No headache. But weakness, recurrent falls in the past. No lung symptoms. Denies any chest pain. CAD. Status post stenting x3. No abdominal pain. But for the last 2 days increasing abdominal pain nausea vomiting and also complaining of burning frequent incontinent urine On examination: Vital signs reviewed Chest good air entry Regular [place] noted. Abdomen diffusely tenderness present. [employer] alert awake oriented. Patient also have a minimal tenderness in the left renal angle area. 1+ pedal edema Labs reviewed Elevated WBC noted. Also has elevated BUN and creatinine level noted. CAT scan of the abdomen showing evidence of left hydronephrosis with obstructing calculi Assessment and recommendation: 72-year-old female admitted to the hospital with a possible acute hydronephrosis, such with acute renal insufficiency and obstructing renal stones. Associated with the urosepsis. Patient is also having significant diabetes uncontrolled. Patient is at high risk for septic shock. I discussed with the urologist and infectious disease. As the patient has no evidence of allergy to penicillin at this time Maxipime 2 g then 1 g. Urology evaluation. ABG ordered. IV fluid. DVT GI prophylaxis. Currently we will hold the Plavix and aspirin for 24 hours. N.p.o. Glucose control and will follow the patient. Course in the hospital: Patient admitted to the hospital with acute severe sepsis, septicemia. Suspected source of urinary tract infection. Also CAT scan of the abdomen showing evidence of left-sided hydronephrosis with the obstructing stone in the left ureter. Infectious disease evaluation. Also urology evaluation called in. Patient started on antibiotic. Patient started responding well. The following day the patient underwent cystoscopy, and ureteral stenting. Patient did well after the surgery. Postoperatively patient developed anemia. Plan patient was given. Also patient needed emergency triple-lumen catheter was inserted. Following that patient received blood transfusion. Patient continued to receive antibiotic. Blood glucose level was controlled well Clinically patient improved markedly. Patient was out of bed to chair. She can be discharged today. She will be followed up by Dr. Ugalde in the jail. I discussed with her the doctor at already. She will be receiving Rocephin 1 g daily on the left midline for at least 5 more days. Patient will need a urological follow-up for removal of the stent. Clinically patient is stable. She will continue the rest of her medications. Final diagnosis: Acute urinary tract infection Severe urosepsis and bacteremia Procidentia infection uncontrolled diabetes. Hypertension Hypercholesterolemia. Obesity. Left obstructing renal stones. Status post a stent. Discussed with the patient and will follow the patient if needed Discharge Exam - Head Exam Head Exam: ATRAUMATIC, NORMOCEPHALIC Discharge Plan - Discharge Medications Prescriptions: cefTRIAXone [Rocephin] 1 gm IVPB Q24H #5 vial - Follow Up Plan Condition: STABLE Disposition: TRANSF TO SNF Instructions: Kidney Stones (DC), Kidney Stone Diet, Urinary Tract Infection in Women (DC) Additional Instructions: Please continue rocephin x 5 more day s Please do cbc, bmp Thursday and then facility protocol Please continue medication as pe rmed. rec. Picc line care as per facility protocol Referrals: Hugo Churchill MD [Staff Provider] - Jareth Diane MD [Staff Provider] - Melvin Wayne MD [Staff Provider] - Joelle Cooney MD [Staff Provider] -
--- NOTE | 2018-03-15 07:41 | CP.PCM.PN ---
Subjective - Date & Time of Evaluation Date of Evaluation: 03/12/18 Time of Evaluation: 07:41 - Subjective Subjective: Patient feeling well. She is no having any fever. I discussed with infectious disease. Currently patient has a midline on the left upper extremity. She will be receiving the Rocephin 1 g daily. Possible discharge planned tomorrow. No chest pain no shortness of breath On examination: Vital signs stable. Chest good air entry Regular hsl Nontender abdomen. Assessment and recommendation: 72-year-old female with a history of multiple medical problems including diabetes hypertension high cholesterol CAD stent in the past admitted with left- sided hydronephrosis acute, complicated with the gram-negative bacteremia, urinary tract infection and sepsis. Anemia. Status post blood transfusion. On IV antibiotic. Currently responding well will. Possible discharge plan tomorrow to rehab Objective - Vital Signs/Intake and Output Vital Signs (last 24 hours): Temp Pulse Resp BP Pulse Ox 97.9 F 65 18 144/73 95 03/13/18 15:00 03/13/18 15:00 03/13/18 15:00 03/13/18 15:00 03/13/18 15:00 - Labs Labs: 03/11/18 07:42 03/13/18 07:56
--- NOTE | 2018-03-15 07:41 | CP.PCM.PN ---
Subjective - Date & Time of Evaluation Date of Evaluation: 03/11/18 Time of Evaluation: 07:40 - Subjective Subjective: Patient complaining of diarrhea. Also complaining of some lower leg pain. She is not feeling well with keeping the hospital for the because of the stomach pain. Sometimes the cramps are noted. Nausea occasionally present. History is eating very poorly. She wanted to go to rehab. Currently she is receiving intravenous IV antibiotic. There is some worsening renal insufficiency noted. We will continue to monitor at this time. Nephrology evaluation appreciated. We will continue the current treatment. We will follow the patient. Objective - Vital Signs/Intake and Output Vital Signs (last 24 hours): Temp Pulse Resp BP Pulse Ox 97.9 F 65 18 144/73 95 03/13/18 15:00 03/13/18 15:00 03/13/18 15:00 03/13/18 15:00 03/13/18 15:00 - Labs Labs: 03/11/18 07:42 03/13/18 07:56
== END 2018-03-13 19:39 | DRG 853 ==
LOC: C.ER 14:12 → C.9E 19:03 → UNDOADMOB 19:03 → C.9E 22:24 → C.5S 22:24 → OBSVTOIN 03-05 09:36 → C.5S 03-05 09:36
PROVIDERS: ADMIT Internal Medicine; ATTEND Internal Medicine
PROC: 0T778DZ Dilation of Left Ureter with Intraluminal Device, Via Natural or Artificial Opening Endoscopic (ICD-10-PCS; principal; 2018-03-06)
PROC: 02HV33Z Insertion of Infusion Device into Superior Vena Cava, Percutaneous Approach (ICD-10-PCS; 2018-03-06)
PROC: 30233N1 Transfusion of Nonautologous Red Blood Cells into Peripheral Vein, Percutaneous Approach (ICD-10-PCS; 2018-03-06)
DX: A41.50 Gram-negative sepsis, unspecified (principal); R65.21 Severe sepsis with septic shock; N13.6 Pyonephrosis; I13.0 Hypertensive heart and chronic kidney disease with heart failure and stage 1 through stage 4 chronic kidney disease, or unspecified chronic kidney disease; N17.9 Acute kidney failure, unspecified; E87.1 Hypo-osmolality and hyponatremia; D64.9 Anemia, unspecified; I25.10 Atherosclerotic heart disease of native coronary artery without angina pectoris; I50.9 Heart failure, unspecified; N18.9 Chronic kidney disease, unspecified; E11.65 Type 2 diabetes mellitus with hyperglycemia; Z79.4 Long term (current) use of insulin; Z85.42 Personal history of malignant neoplasm of other parts of uterus; Z87.891 Personal history of nicotine dependence; Z95.5 Presence of coronary angioplasty implant and graft; E78.00 Pure hypercholesterolemia, unspecified; F32.9 Major depressive disorder, single episode, unspecified; F41.9 Anxiety disorder, unspecified; G47.33 Obstructive sleep apnea (adult) (pediatric); E66.9 Obesity, unspecified

== ENCOUNTER 2018-04-01 07:56 | Inpatient (IN) | payer MEDICARE, MEDICAID ==
[2018-04-01 08:12] VITALS: BMI 49.8
--- NOTE | 2018-04-01 08:29 | C.PDOC ---
History Of Present Illness 72 y/o female sent in by [facility] for lower abdominal cramping and reports she has ESBL in urine and started on tigecycline. Patient denies any fever, chills, vomiting, diarrhea, or other complaints. Time Seen by Provider: 04/01/18 08:10 Chief Complaint (Nursing): Female Genitourinary History Per: Patient History/Exam Limitations: no limitations Onset/Duration Of Symptoms: Hrs Current Symptoms Are (Timing): Still Present Past Medical History Reviewed: Historical Data, Nursing Documentation, Vital Signs Vital Signs: Last Vital Signs Temp 98.1 F 04/01/18 08:11 Pulse 83 04/01/18 08:11 Resp 14 04/01/18 08:11 BP 125/68 04/01/18 08:11 Pulse Ox 100 04/01/18 08:11 - Medical History PMH: Anxiety, Arthritis, Depression, Diabetes, HTN, Hypercholesterolemia, Peripheral Edema Denies: Deep Vein Thrombosis, Chronic Kidney Disease Surgical History: Appendectomy, Cholecystectomy (1975), Coronary Stent (3) Denies: Pacemaker - [facility] Procedures DILATION OF LEFT URETER WITH INTRALUMINAL DEVICE, ENDO (03/05/18) INSERTION OF INFUSION DEV INTO SUP VENA CAVA, PERC APPROACH (03/05/18) TRANSFUSE NONAUT RED BLOOD CELLS IN PERIPH VEIN, PERC (03/05/18) ULTRASONOGRAPHY OF SUPERIOR VENA CAVA, GUIDANCE (01/09/17) Family History: States: No Known Family Hx - Social History Hx Tobacco Use: No Hx Alcohol Use: No Hx Substance Use: No - Immunization History Hx Tetanus Toxoid Vaccination: No Hx Influenza Vaccination: No Hx Pneumococcal Vaccination: No Review Of Systems Except As Marked, All Systems Reviewed And Found Negative. Constitutional: Negative for: Fever, Chills Cardiovascular: Negative for: Chest Pain, Palpitations Respiratory: Negative for: Shortness of Breath Gastrointestinal: Positive for: Other (Lower abdominal cramping). Negative for: Vomiting, Diarrhea Skin: Negative for: Rash Physical Exam - Physical Exam Appears: Non-toxic, No Acute Distress Skin: Warm, Dry Head: Atraumatic, Normacephalic Eye(s): bilateral: Normal Inspection Oral Mucosa: Moist Neck: Supple Cardiovascular: Rhythm Regular, No Murmur Respiratory: Normal Breath Sounds, No Rales, No Rhonchi, No Wheezing Gastrointestinal/Abdominal: Soft, Tenderness (mild suprapubic tenderness) Extremity: Bilateral: Atraumatic, Normal Color And Temperature, Normal ROM Neurological/Psych: Oriented x3, Normal Speech ED Course And Treatment - Laboratory Results Result Diagrams: 04/01/18 09:27 04/01/18 09:27 ECG: Interpreted By Me, Viewed By Me ECG Rhythm: Sinus Rhythm ECG Interpretation: Normal Rate From EC O2 Sat by Pulse Oximetry: 100 (RA) Pulse Ox Interpretation: Normal - Other Rad CXR X-Ray: Read By Radiologist Interpretation: FINDINGS: LUNGS: Lung volumes slightly shallow-more so now than before. No consolidation noted. Prior bandlike atelectasis left lower lung zone now re-expanded. PLEURA: No significant pleural effusion identified, no pneumothorax apparent. CARDIOVASCULAR: No aortic atherosclerotic calcification present. Mild cardiomegaly-similar probable top-normal pulmonary vasculature. Prior left internal jugular vein catheter removed. OSSEOUS STRUCTURES: No significant abnormalities. VISUALIZED UPPER ABDOMEN: Normal. OTHER FINDINGS: None. IMPRESSION: Interval re-expansion of prior subsegmental atelectasis left lower lung zone. No interval pathology appreciated. Other findings as above. Medical Decision Making Medical Decision Making: pt with uti esbl on tigecycline. discussed with urologist dr joelle cooney. plan for cysto Plan: --EKG --Labs --Chest XR --UA case discussed with dr peñaloza. accepts for admission. baseline leukocytosis, and ckd noted, no interval change from previous Disposition - Disposition Disposition: HOSPITALIZED Disposition Time: 10:16 Condition: STABLE Forms: [facility] (Peruvian) - Clinical Impression Clinical Impression: UTI (urinary tract infection), Leukocytosis - Scribe Statement The provider has reviewed the documentation as recorded by the Juan Herzog Provider Attestation: All medical record entries made by the Juan were at my direction and personally dictated by me. I have reviewed the chart and agree that the record accurately reflects my personal performance of the history, physical exam, medic al decision making, and the department course for this patient. I have also personally directed, reviewed, and agree with the discharge instructions and disposition. Decision To Admit - Pt Status Changed To: Hospital Disposition Of: Inpatient - Admit Certification Admit to Inpatient:: After my assessment, the patient will require hospitalization for at least two midnights. This is because of the severity of symptoms shown, intensity of services needed, and/or the medical risk in this patient being treated as an outpatient. - InPatient: Physician Admission Certification: I certify that this patient requires 2 or more midnights of care for the following reason:: needs urology eval iv antibiotics - . Bed Request Type: Regular Admitting Physician: Joelle Cooney Patient Diagnosis: UTI (urinary tract infection), Leukocytosis
[2018-04-01] MEDS ORDERED: Aritificial Tears (15ml) OU PRN (08:47)
--- NOTE | 2018-04-01 08:53 | CP.PCM.HP ---
History of Present Illness - History of Present Illness History of Present Illness: Chief complaint: Patient admitted with urinary tract infection, and also stent and obstruction of the left ureter HPI: 72-year-old female with history of diabetes, hypertension, hypercholesterolemia history of CAD, status post stent, also history of osteoarthritis was sent from [facility] because of not feeling well. patient was recently hospitalized with acute urinary tract infection, with obstruction. At that time patient underwent cystoscopy, and stenting of the left ureteral area. Patient was brought into the emergency room because of the worsening symptoms and abdominal pain. Patient was seen by urologist. Scheduled to have the revision of the cystoscopy, and possible ureteral lithotripsy and a further procedure to relieve the obstruction. Patient is feeling otherwise well. No chest pain or shortness of breath noted. On past medical history: Diabetes, hypertension, hypercholesterolemia, CAD, status post stent. Surgical history include hysterectomy, cholecystectomy Allergy there was a concern about the questionable penicillin allergy, but in the emergency room patient received Zosyn without any problem. Ex-smoker. Denies any alcohol. Currently [facility] resident. Review of system: Noted from the chart. No headache. But weakness, recurrent falls in the past. No lung symptoms. Denies any chest pain. CAD. Status post stenting x3. No abdominal pain. But for the last 2 days increasing abdominal pain nausea vomiting and also complaining of burning frequent incontinent urine On examination: Vital signs reviewed Chest good air entry Regular HS noted. Abdomen diffusely tenderness present. 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 Patient also have a minimal tenderness in the left renal angle area. 1+ pedal edema Labs reviewed Urinalysis showing evidence of hematuria. Assessment and recommendation: 72-year-old female admitted to the hospital with a possible acute hydronephrosis, such with acute renal insufficiency and obstructing renal stones. Associated with the urosepsis. I discussed with the urologist and infectious disease. Patient will be admitted to the hospital. We will start the patient on intravenous antibiotic. Patient is medically stable for surgery tomorrow. DVT and GI prophylaxis. Infectious disease evaluation, urinalysis culture waiting. We will follow the patient Present on Admission - Present on Admission Any Indicators Present on Admission: No History of DVT/PE: No History of Uncontrolled Diabetes: No Urinary Catheter: No Decubitus Ulcer Present: No Past Patient History - Infectious Disease Hx of Infectious Diseases: None - Past Medical History & Family History Past Medical History?: Yes - Past Social History Smoking Status: Never Smoked - CARDIAC Hx Hypercholesterolemia: Yes Hx Hypertension: Yes Hx Pacemaker: No Hx Peripheral Edema: Yes - PULMONARY Hx Respiratory Disorders: No - NEUROLOGICAL Hx Neurological Disorder: No - HEENT Hx HEENT Problems: Yes Hx Cataracts: Yes - RENAL Hx Chronic Kidney Disease: No - ENDOCRINE/METABOLIC Hx Endocrine Disorders: Yes Hx Diabetes Mellitus Type 1: Yes - HEMATOLOGICAL/ONCOLOGICAL Hx Cancer: No - INTEGUMENTARY Hx Dermatological Problems: No - MUSCULOSKELETAL/RHEUMATOLOGICAL Hx Arthritis: Yes - GASTROINTESTINAL Hx Gastrointestinal Disorders: Yes Hx Irritable Bowel: Yes Other/Comment: HX: DYSPHAGIA - GENITOURINARY/GYNECOLOGICAL Hx Genitourinary Disorders: Yes Hx Uterine Cancer: Yes (hysterectomy 2007) Other/Comment: ESBL in urine, as per [facility] chart. - PSYCHIATRIC Hx Anxiety: Yes Hx Depression: Yes Hx Substance Use: No - SURGICAL HISTORY Hx Appendectomy: Yes Hx Cholecystectomy: Yes (1975) Hx Coronary Stent: Yes (3) - ANESTHESIA Hx Anesthesia: Yes Hx Anesthesia Reactions: No Hx Malignant Hyperthermia: No Meds Allergies/Adverse Reactions: Allergies Allergy/AdvReac Type Severity Reaction Status Date / Time nafarelin Allergy SHORTNESS Verified 04/01/18 08:11 OF BREATH nafcillin Allergy REDNESS Verified 04/01/18 08:11 Penicillins Allergy SHORTNESS Verified 04/01/18 08:11 OF BREATH Results - Vital Signs Recent Vital Signs: Last Vital Signs Temp 98.1 F 04/01/18 08:11 Pulse 83 04/01/18 08:11 Resp 14 04/01/18 08:11 BP 125/68 04/01/18 08:11 Pulse Ox 100 04/01/18 08:50 - Labs Result Diagrams: 04/07/18 11:35 04/06/18 07:31
[2018-04-01] MEDS ORDERED: cefTRIAXone (Rocephin) 1 gm Inj IVPB SCH (09:00)
[2018-04-01 09:44] LABS: BASO # 0.1 K/uL (0.0-0.2); EOS # 0.4 K/uL (0.0-0.7); EOS % 2.8 % (0.0-4.0); HEMOGLOBIN 9.3 g/dL (11.0-16.0); LYMPH # 1.9 K/uL (1.0-4.3); LYMPH % 13.2 % (20.0-40.0); MEAN CELL VOLUME 89.2 fL (81.0-99.0); MEAN CORPUSCULAR HEMOGLOBIN 28.6 pg (27.0-31.0); MEAN CORPUSCULAR HGB CONC 32.1 g/dL (33.0-37.0); MEAN PLATELET VOLUME 7.6 fL (7.2-11.7); MONO # 0.9 K/uL (0.0-0.8); NEUT # 11.2 K/uL (1.8-7.0); RBC 3.26 Mil/uL (3.80-5.20); WHITE BLOOD COUNT 14.5 K/uL (4.8-10.8)
[2018-04-01 09:51] LABS: ALB/GLOB RATIO 0.9 (1.0-2.1); ALBUMIN 3.4 g/dL (3.5-5.0); ALT/SGPT < 6 U/L (9-52); AST/SGOT 13 U/L (14-36); BLOOD UREA NITROGEN 81 mg/dL (7-17); CALCIUM 8.6 mg/dl (8.6-10.4); GFR NON-AFRICAN AMERICAN 19
[2018-04-01 09:58] LABS: INR 1.1; PROTHROMBIN TIME 12.1 SECONDS (9.7-12.2)
--- NOTE | 2018-04-01 09:59 | RAD ---
Date of service: 04/01/2018 HISTORY: preop COMPARISON: 03/06/2018 FINDINGS: LUNGS: Lung volumes slightly shallow-more so now than before. No consolidation noted. Prior bandlike atelectasis left lower lung zone now re-expanded. PLEURA: No significant pleural effusion identified, no pneumothorax apparent. CARDIOVASCULAR: No aortic atherosclerotic calcification present. Mild cardiomegaly-similar probable top-normal pulmonary vasculature. Prior left internal jugular vein catheter removed. OSSEOUS STRUCTURES: No significant abnormalities. VISUALIZED UPPER ABDOMEN: Normal. OTHER FINDINGS: None. IMPRESSION: Interval re-expansion of prior subsegmental atelectasis left lower lung zone. No interval pathology appreciated. Other findings as above.
[2018-04-01 10:40] LABS: URINE BACTERIA MOD (<OCC); URINE BILIRUBIN NEGATIVE (NEGATIVE); URINE BLOOD 1+ (NEGATIVE); URINE CLARITY Hazy (Clear); URINE COLOR Yellow (YELLOW); URINE GLUCOSE (UA) 1+ mg/dL (Normal); URINE LEUKOCYTE ESTERASE 3+ Leu/uL (Negative); URINE PROTEIN 2+ mg/dL (NEGATIVE); URINE UROBILINOGEN NORMAL mg/dL (0.2-1.0); WBC CLUMPS OCC /hpf
[2018-04-01] MEDS ORDERED: (Novolin R) Insulin Human Regular 100 units/ml vial ONE ×2 (14:33→16:38)
[2018-04-01] MEDS: (Novolin R) Insulin Human Regular 100 units/ml vial SC SCH ×3 (14:35→22:02)
[2018-04-01] MEDS: (Lantus) Insulin Glargine, Recombinant SC SCH (22:55)
[2018-04-02] MEDS: (Novolin R) Insulin Human Regular 100 units/ml vial SC SCH ×4 (07:41→22:23)
[2018-04-02] MEDS ORDERED: Iohexol 240 (50 ml) ONE (09:59)
[2018-04-02] MEDS ORDERED: Lidocaine 2% Jelly (Uro-Jet) ONE (10:00)
[2018-04-02] MEDS ORDERED: Midazolam 2 MG/2 ML VIAL ONE (10:21)
[2018-04-02] MEDS ORDERED: Etomidate 20 mg/10ml Inj IV ONE (10:30)
--- NOTE | 2018-04-02 11:41 | CP.PCM.CON ---
Past Patient History - Infectious Disease Hx of Infectious Diseases: None - Past Medical History & Family History Past Medical History?: Yes - Past Social History Smoking Status: Former Smoker - CARDIAC Hx Hypercholesterolemia: Yes Hx Hypertension: Yes Hx Pacemaker: No Hx Peripheral Edema: Yes - PULMONARY Hx Respiratory Disorders: No - NEUROLOGICAL Hx Neurological Disorder: No - HEENT Hx HEENT Problems: Yes Hx Cataracts: Yes - RENAL Hx Chronic Kidney Disease: No - ENDOCRINE/METABOLIC Hx Endocrine Disorders: Yes Hx Diabetes Mellitus Type 1: Yes - HEMATOLOGICAL/ONCOLOGICAL Hx Cancer: No - INTEGUMENTARY Hx Dermatological Problems: No - MUSCULOSKELETAL/RHEUMATOLOGICAL Hx Arthritis: Yes Hx Falls: No - GASTROINTESTINAL Hx Gastrointestinal Disorders: Yes Hx Irritable Bowel: Yes Other/Comment: HX: DYSPHAGIA - GENITOURINARY/GYNECOLOGICAL Hx Genitourinary Disorders: Yes Hx Uterine Cancer: Yes (hysterectomy 2007) Other/Comment: ESBL in urine, as per [facility]. - PSYCHIATRIC Hx Anxiety: Yes Hx Depression: Yes Hx Substance Use: No - SURGICAL HISTORY Hx Appendectomy: Yes Hx Cholecystectomy: Yes (1975) Hx Coronary Stent: Yes () - ANESTHESIA Hx Anesthesia: Yes Hx Anesthesia Reactions: No Hx Malignant Hyperthermia: No Meds Allergies/Adverse Reactions: Allergies Allergy/AdvReac Type Severity Reaction Status Date / Time nafarelin Allergy SHORTNESS Verified 04/01/18 08:11 OF BREATH nafcillin Allergy REDNESS Verified 04/01/18 08:11 Penicillins Allergy SHORTNESS Verified 04/01/18 08:11 OF BREATH - Medications Medications: Current Medications Acetaminophen (Tylenol 325mg Tab) 650 mg PO Q4 PRN PRN Reason: Pain, Mild (1-3) Alprazolam (Xanax) 0.5 mg PO Q8H PRN PRN Reason: Anxiety Amlodipine Besylate (Norvasc) 10 mg PO DAILY [facility] Last Admin: 04/02/18 09:02 Dose: Not Given Artificial Tears (Artificial Tears) 0 ml OU Q12 PRN PRN Reason: Dry eyes Clonidine HCl (Catapres) 0.1 mg PO BID [facility] Last Admin: 04/02/18 09:02 Dose: Not Given Gabapentin (Neurontin) 300 mg PO BID [facility] Last Admin: 04/02/18 09:02 Dose: Not Given Heparin Sodium (Porcine) (Heparin) 5,000 units SC Q8 [facility] Last Admin: 04/02/18 07:41 Dose: Not Given Ceftriaxone Sodium 1 gm/ (Sodium Chloride) 100 mls @ 100 mls/hr IVPB Q24H [facility] Stop: 04/05/18 12:59 Last Admin: 04/01/18 13:10 Dose: 100 mls/hr Insulin Glargine (Lantus) 30 unit SC [facility] Last Admin: 04/01/18 22:55 Dose: Not Given Insulin Human Regular (Novolin R) 0 unit SC [facility]; Protocol Last Admin: 04/02/18 07:41 Dose: Not Given Rosuvastatin Calcium (Crestor) 10 mg PO HS [facility] Last Admin: 04/01/18 22:35 Dose: Not Given Results - Vital Signs Recent Vital Signs: Last Vital Signs Temp 97.5 F L 04/02/18 07:56 Pulse 74 04/02/18 07:56 Resp 18 04/02/18 07:56 BP 131/72 04/02/18 07:56 Pulse Ox 99 04/02/18 07:56 - Labs Result Diagrams: 04/01/18 09:27 04/01/18 09:27 Labs: Laboratory Results - last 24 hr 04/01/18 04/01/18 04/01/18 12:53 16:26 21:59 POC Glucose (mg/dL) 219 H 299 H 253 H 04/02/18 06:21 POC Glucose (mg/dL) 131 H Assessment & Plan - Assessment and Plan (Free Text) Assessment: IMP: Urolithiasis hydronephrosis DM Hypertension,CAD Obesity full note t/f YS - Date & Time Date: 04/02/18 Time: 09:30
--- NOTE | 2018-04-02 11:44 | PCM.SURG1 ---
Surgeon's Initial Post Op Note - Surgeon's Notes Surgeon: Brian Cooney Blue Leather Sorter: none Type of Anesthesia: General LMA Pre-Operative Diagnosis: L Urolithiasis. Hydronephrosis Operative Findings: same. cystitis. Debris in L kidney - inflamatory, poss papillary necrosis. Poss stone in L kidney Post-Operative Diagnosis: same Operation Performed: cysto. L uretero-renoscopy. stone and debris basketing. RTG pyelogram. Stent insertion Specimen/Specimens Removed: urine. stone. debris Estimated Blood Loss: EBL {In ML}: 0 Blood Products Given: N/A Post-Op Condition: Good Date of Surgery/Procedure: 04/02/18 Time of Surgery/Procedure: 11:35
[2018-04-02] MEDS ORDERED: HYDROmorphone 0.5 mg/0.5 ml ISec IVP PRN ×2 (11:54→12:11)
[2018-04-02] MEDS ORDERED: HYDROmorphone 0.5 mg/0.5 ml ISec ONE (11:59)
[2018-04-02] MEDS ORDERED: Sodium Chloride 0.9% 500 ML IV ONE ×2 (12:59→13:15)
--- NOTE | 2018-04-02 13:19 | RAD ---
Date of service: 04/02/2018 HISTORY: UROLITHIASIS COMPARISON: None available. 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 There is a radiopaque ruler projecting over the mid abdomen. It is likely beneath the patient. The bowel gas pattern is unremarkable. There is mild retained feces. A left ureteral stent is noted there are no abnormal calcifications identified. BONES: Normal. OTHER FINDINGS: None. IMPRESSION: Left ureteral stent. A radiopaque ruler is seen projecting over the central abdomen. Uncertain location.
[2018-04-02 13:51] LABS: HEMOGLOBIN 9.4 g/dL (11.0-16.0); MEAN CORPUSCULAR HEMOGLOBIN 29.1 pg (27.0-31.0); MEAN CORPUSCULAR HGB CONC 32.3 g/dL (33.0-37.0); MEAN PLATELET VOLUME 7.6 fL (7.2-11.7); RBC 3.23 Mil/uL (3.80-5.20); RED CELL DISTRIBUTION WIDTH 16.3 % (11.5-14.5); WHITE BLOOD COUNT 11.8 K/uL (4.8-10.8)
[2018-04-02 14:25] LABS: ALB/GLOB RATIO 0.9 (1.0-2.1); ALBUMIN 3.3 g/dL (3.5-5.0); CALCIUM 8.6 mg/dl (8.6-10.4)
[2018-04-02] MEDS ORDERED: Sodium Chloride 0.9% 1,000 ML IV SCH (14:30)
--- NOTE | 2018-04-02 14:55 | RAD ---
Date of service: 04/02/2018 PROCEDURE: Intraoperative fluoroscopy HISTORY: UROLITHIASIS COMPARISON: Not available TECHNIQUE: Intraoperative fluoroscopy was provided for left retrograde pyeloureterography and ureteral stent insertion. Total time of fluoroscopy was 74.9 sec. Cumulative dose was 4.15 mGy meter squared. FINDINGS: Multiple fluoroscopic spot films are submitted demonstrating progressive stages in retrograde pyeloureterography and ureteral stent insertion. IMPRESSION: Fluoroscopy provided
[2018-04-02] MEDS ORDERED: Piperacillin/Tazobact 3.375 gm 100 ML IVPB SCH (15:00)
--- NOTE | 2018-04-02 19:18 | CARD ---
APPROVED REPORT Date of service: 04/01/2018 EKG Measurement Heart [id number] <Conclusion> Normal sinus rhythm with sinus arrhythmia Normal ECG
--- NOTE | 2018-04-02 21:03 | CP.PCM.PN ---
Subjective - Date & Time of Evaluation Date of Evaluation: 04/02/18 Time of Evaluation: 21:02 - Subjective Subjective: Pre-Operative Diagnosis: L Urolithiasis. Hydronephrosis Operative Findings: same. cystitis. Debris in L kidney - inflamatory, poss papillary necrosis. Poss stone in L kidney Post-Operative Diagnosis: same Operation Performed: cysto. L uretero-renoscopy. stone and debris basketing. RTG pyelogram. Stent insertion Patient today underwent a surgical procedure. Postoperatively patient developed hypotension secondary to possibly related to hypovolemia. Improved with IV fluids. Patient is currently having vomiting. She vomited 2 episodes of bilious fluid. She is on clear liquids at this time. Patient is having shaking and shivering. Low-grade fever noted. Mild tachycardia noted. Blood pressure stable otherwise. Chest good air entry Regular hs. Nontender abdomen. Pedal edema noted Labs postoperatively reviewed Improvement in the WBC noted. Lactate is normal. Assessment and recommendation: 72-year-old female with a history of diabetes hypertension CAD. Recently admitted with the severe urosepsis and urinary tract infection, status post a stent for nephrolithiasis. Improving at this time. Today patient underwent cystoscopy, ureteroscopy and stone removal. Awaiting for urine culture. On Zosyn. IV fluid. We will continue to monitor. DVT and GI prophylaxis and will follow the patient Objective - Vital Signs/Intake and Output Vital Signs (last 24 hours): Temp Pulse Resp BP Pulse Ox 89.2 F L 110 H 18 133/66 99 04/02/18 20:37 04/02/18 20:37 04/02/18 20:37 04/02/18 20:37 04/02/18 20:37 Intake and Output: 04/02/18 04/03/18 18:59 06:59 Intake Total 1000 Output Total 120 Balance 880 - Medications Medications: Current Medications Acetaminophen (Tylenol 325mg Tab) 650 mg PO Q4 PRN PRN Reason: Pain, Mild (1-3) Last Admin: 04/02/18 16:05 Dose: 650 mg Acetaminophen (Tylenol 650 Mg Supp) 650 mg IN STAT STA Stop: 04/02/18 20:58 Alprazolam (Xanax) 0.5 mg PO Q8H PRN PRN Reason: Anxiety Last Admin: 04/02/18 16:05 Dose: 0.5 mg Amlodipine Besylate (Norvasc) 10 mg PO DAILY [facility] Last Admin: 04/02/18 09:02 Dose: Not Given Artificial Tears (Artificial Tears) 0 ml OU Q12 PRN PRN Reason: Dry eyes Gabapentin (Neurontin) 300 mg PO BID [facility] Last Admin: 04/02/18 17:54 Dose: 300 mg Heparin Sodium (Porcine) (Heparin) 5,000 units SC Q8 [facility] Last Admin: 04/02/18 13:01 Dose: Not Given Hydromorphone HCl (Dilaudid) 0.5 mg IVP Q10M PRN PRN Reason: Pain, moderate (4-7) Piperacillin Sod/Tazobactam Sod (Zosyn 3.375 Gm Iv Premix) 3.375 gm in 50 mls @ 100 mls/hr IVPB Q8H [facility]; Protocol Sodium Chloride (Sodium Chloride 0.9%) 1,000 mls @ 150 mls/hr IV .Q6H40M [facility] Insulin Glargine (Lantus) 30 unit SC [facility] Last Admin: 04/01/18 22:55 Dose: Not Given Insulin Human Regular (Novolin R) 0 unit SC [facility]; Protocol Last Admin: 04/02/18 17:55 Dose: 1 units Ondansetron HCl (Zofran Inj) 4 mg IVP Q8 PRN PRN Reason: Nausea/Vomiting Pantoprazole Sodium (Protonix Inj) 40 mg IVP DAILY [facility] Rosuvastatin Calcium (Crestor) 10 mg PO HS [facility] Last Admin: 04/01/18 22:35 Dose: Not Given - Labs Labs: 04/02/18 13:48 04/02/18 13:48 PT 12.1 SECONDS (9.7-12.2) 04/01/18 09:27 INR 1.1 04/01/18 09:27 APTT 32 SECONDS (21-34) 04/01/18 09:27
[2018-04-02] MEDS: (Lantus) Insulin Glargine, Recombinant SC SCH (21:16)
[2018-04-02] MEDS: Sodium Chloride 0.9% 1,000 ML IV SCH (21:46)
[2018-04-02] MEDS ORDERED: Vancomycin 1 gm/NS 200 ml 1 GM/200 ML BAG IVPB ONE (22:00)
[2018-04-02] MEDS: Piperacill/Tazo 3.375gm in Dex 3.375 GM/50 ML BAG IVPB SCH (22:20)
[2018-04-03] MEDS: Sodium Chloride 0.9% 1,000 ML IV SCH ×4 (03:35→22:04)
[2018-04-03] MEDS: (Novolin R) Insulin Human Regular 100 units/ml vial SC SCH ×4 (08:28→21:25)
[2018-04-03 08:42] LABS: BASO # 0.1 K/uL (0.0-0.2); BASO % 0.5 % (0.0-2.0); HEMOGLOBIN 8.5 g/dL (11.0-16.0); LYMPH # 0.8 K/uL (1.0-4.3); LYMPH % 3.1 % (20.0-40.0); MEAN CELL VOLUME 89.7 fL (81.0-99.0); MEAN CORPUSCULAR HEMOGLOBIN 29.2 pg (27.0-31.0); MEAN CORPUSCULAR HGB CONC 32.5 g/dL (33.0-37.0); MONO # 1.1 K/uL (0.0-0.8); MONO % 4.3 % (0.0-10.0); NEUT # 22.9 K/uL (1.8-7.0); NEUT % 92.1 % (50.0-75.0); PLATELET COUNT 274 K/uL (130-400); RED CELL DISTRIBUTION WIDTH 16.1 % (11.5-14.5)
[2018-04-03 08:47] LABS: WHITE BLOOD COUNT 24.9 K/uL (4.8-10.8)
[2018-04-03 08:51] LABS: ALB/GLOB RATIO 0.9 (1.0-2.1); ALBUMIN 2.9 g/dL (3.5-5.0); ALT/SGPT < 6 U/L (9-52); AST/SGOT 17 U/L (14-36); BLOOD UREA NITROGEN 70 mg/dL (7-17); CALCIUM 7.7 mg/dl (8.6-10.4); GFR NON-AFRICAN AMERICAN 19
[2018-04-03] MEDS: Piperacill/Tazo 3.375gm in Dex 3.375 GM/50 ML BAG IVPB SCH ×3 (10:05→23:14)
[2018-04-03 11:02] LABS: EOSINOPHIL 2 % (0-4); LYMPHOCYTE 3 % (20-40); MONOCYTE 4 % (0-10); NEUTROPHIL 91 % (50-75); PLATELET ESTIMATE NORMAL (NORMAL); TOTAL CELLS COUNTED 100
[2018-04-03 11:03] LABS: ANISOCYTOSIS SLIGHT
[2018-04-03] MEDS: (Lantus) Insulin Glargine, Recombinant SC SCH (22:03)
[2018-04-04 08:19] LABS: BASO # 0.1 K/uL (0.0-0.2); BASO % 0.8 % (0.0-2.0); EOS # 0.4 K/uL (0.0-0.7); EOS % 2.6 % (0.0-4.0); HEMOGLOBIN 8.1 g/dL (11.0-16.0); LYMPH # 1.2 K/uL (1.0-4.3); LYMPH % 8.7 % (20.0-40.0); MEAN CELL VOLUME 89.8 fL (81.0-99.0); MEAN CORPUSCULAR HEMOGLOBIN 29.2 pg (27.0-31.0); MEAN CORPUSCULAR HGB CONC 32.5 g/dL (33.0-37.0); MONO # 1.1 K/uL (0.0-0.8); MONO % 7.7 % (0.0-10.0); NEUT # 11.1 K/uL (1.8-7.0); NEUT % 80.2 % (50.0-75.0); PLATELET COUNT 215 K/uL (130-400); RBC 2.77 Mil/uL (3.80-5.20); WHITE BLOOD COUNT 13.8 K/uL (4.8-10.8)
[2018-04-04] MEDS: (Novolin R) Insulin Human Regular 100 units/ml vial SC SCH ×4 (08:29→22:05)
[2018-04-04 08:36] LABS: CALCIUM 7.8 mg/dl (8.6-10.4)
[2018-04-04 09:00] LABS: ANISOCYTOSIS SLIGHT; BANDS 1 % (0-2); EOSINOPHIL 3 % (0-4); LYMPHOCYTE 11 % (20-40); MONOCYTE 4 % (0-10); NEUTROPHIL 81 % (50-75); PLATELET ESTIMATE NORMAL (NORMAL); TOTAL CELLS COUNTED 100
[2018-04-04 09:01] LABS: HYPOCHROMIC SLIGHT; OVALOCYTES SLIGHT; SPHEROCYTES SLIGHT
[2018-04-04 09:02] LABS: MICROCYTOSIS SLIGHT
[2018-04-04] MEDS: Sodium Chloride 0.9% 1,000 ML IV SCH ×2 (10:55→17:23)
[2018-04-04] MEDS: Piperacillin/Tazobact 3.375 GM in Sodium Chloride 0.9% 100 ML IVPB SCH ×2 (12:09→19:30)
--- NOTE | 2018-04-04 14:42 | CP.PCM.PN ---
Subjective - Date & Time of Evaluation Date of Evaluation: 04/04/18 Time of Evaluation: 14:42 - Subjective Subjective: Complaining of nausea. But able to eat. Patient is able to tolerate the regular diet. Urine is clear at this time. We will continue to monitor. We will repeat the urinalysis and urine culture. Currently on antibiotic we will get ID evaluation and will follow the patient Objective - Vital Signs/Intake and Output Vital Signs (last 24 hours): Temp Pulse Resp BP Pulse Ox 97.6 F 68 22 122/73 98 04/04/18 08:18 04/04/18 12:00 04/04/18 08:18 04/04/18 08:18 04/04/18 08:18 Intake and Output: 04/04/18 04/04/18 06:59 18:59 Intake Total 1200 625 Output Total 1850 1000 Balance -650 -375 - Medications Medications: Current Medications Acetaminophen (Tylenol 325mg Tab) 650 mg PO Q4 PRN PRN Reason: Pain, Mild (1-3) Last Admin: 04/04/18 05:05 Dose: 650 mg Alprazolam (Xanax) 0.5 mg PO Q8H PRN PRN Reason: Anxiety Last Admin: 04/04/18 07:19 Dose: 0.5 mg Amlodipine Besylate (Norvasc) 10 mg PO DAILY [facility] Last Admin: 04/02/18 09:02 Dose: Not Given Artificial Tears (Artificial Tears) 0 ml OU Q12 PRN PRN Reason: Dry eyes Gabapentin (Neurontin) 300 mg PO BID [facility] Last Admin: 04/04/18 09:02 Dose: 300 mg Sodium Chloride (Sodium Chloride 0.9%) 1,000 mls @ 75 mls/hr IV .[id number] [facility] Last Admin: 04/04/18 10:55 Dose: Not Given Piperacillin Sod/Tazobactam (Sod 3.375 gm/ Sodium Chloride) 100 mls @ 100 mls/hr IVPB Q8H [facility]; Protocol Last Admin: 04/04/18 12:09 Dose: 100 mls/hr Insulin Glargine (Lantus) 30 unit SC HS [facility] Last Admin: 04/03/18 22:03 Dose: 30 unit Insulin Human Regular (Novolin R) 0 unit SC ACHS [facility]; Protocol Last Admin: 04/04/18 12:28 Dose: 1 units Ondansetron HCl (Zofran Inj) 4 mg IVP Q8 PRN PRN Reason: Nausea/Vomiting Last Admin: 04/02/18 21:22 Dose: 4 mg Pantoprazole Sodium (Protonix Inj) 40 mg IVP DAILY [facility] Last Admin: 04/04/18 09:02 Dose: 40 mg Rosuvastatin Calcium (Crestor) 10 mg PO HS [facility] Last Admin: 04/01/18 22:35 Dose: Not Given - Labs Labs: 04/04/18 08:02 04/04/18 08:02 PT 12.1 SECONDS (9.7-12.2) 04/01/18 09:27 INR 1.1 04/01/18 09:27 APTT 32 SECONDS (21-34) 04/01/18 09:27
--- NOTE | 2018-04-04 15:18 | CT ---
Date of service: 04/04/2018 PROCEDURE: CT Abdomen and Pelvis without intravenous contrast HISTORY: hydronephrosis COMPARISON: Abdomen pelvis CT without contrast 04/24/2018. TECHNIQUE: Helical CT of the abdomen and pelvis was performed without oral or intravenous contrast as per referring physician request. Coronal and sagittal reformats were generated.. Contrast dose: None Radiation dose: Total exam DLP = 1174.44 mGy-cm. This CT exam was performed using one or more of the following dose reduction techniques: Automated exposure control, adjustment of the mA and/or kV according to patient size, and/or use of iterative reconstruction technique. FINDINGS: LOWER THORAX: Left lower lobe atelectasis. Cardiomegaly appears stable. No pulmonary vascular congestion. Small hiatal hernia. LIVER: Unremarkable. No gross lesion or ductal dilatation. GALLBLADDER AND BILE DUCTS: Prior cholecystectomy. PANCREAS: Unremarkable. No gross lesion or ductal dilatation. SPLEEN: Unremarkable. ADRENALS: Unremarkable. No mass. KIDNEYS AND URETERS: Left double-J ureteral stent is identified in good apparent position at the left renal pelvis, left ureter and urinary bladder lumen. Prior left hydronephrosis appears relieved with no significant residual. No right-sided obstructive uropathy. Punctate intrarenal calculus questioned at the midpole right kidney. VASCULATURE: Unremarkable. No aortic aneurysm. No aortic atherosclerotic calcification or mural plaque present. BOWEL: Small right lower quadrant abdominal umbilical hernia is appreciated use neck measures 2.3 cm with a small bowel segment involved but not incarcerated. No obstruction. No gross mural thickening. APPENDIX: Unremarkable. Normal appendix. PERITONEUM: Unremarkable. No free fluid. No free air. LYMPH NODES: Unremarkable. No enlarged lymph nodes. BLADDER: Urine bladder is decompressed by Bennett catheter with distal segment left double-J ureteral stent in situ as well. REPRODUCTIVE: Unremarkable. BONES: No acute fracture. OTHER FINDINGS: None. IMPRESSION: Left double-J ureteral stent in situ as discussed above decompressing left renal pelvocaliceal system. No definite obstructive uropathy appreciate bilaterally. Punctate intrarenal calculus identified at the midpole right kidney. Bennett catheter decompresses urinary bladder. Ventral abdominal hernia as per above. Prior cholecystectomy.
[2018-04-04] MEDS: (Lantus) Insulin Glargine, Recombinant SC SCH (22:06)
--- NOTE | 2018-04-04 22:54 | CON ---
DATE: 04/04/2018 UROLOGY CONSULTATION Urology consultation is requested by Dr. Wayne. Urology consultation is filled by Dr. Joelle Cooney. REASON FOR CONSULTATION: Urinary tract infection, left hydronephrosis, left urolithiasis. HISTORY OF PRESENT ILLNESS: The patient is a 72-year-old female with hydronephrosis. The patient was admitted to [facility] in 03/2018 for urinary tract infection. The patient was found to have urolithiasis and hydronephrosis. The patient had cystoscopy and left ureteral stent insertion. The patient is in otherwise fair health. The patient is bedridden. The patient has a history of hypertension and diabetes. The patient has a history of coronary artery disease. The patient has no children. She has been bedridden. She lives in a chronic care facility. The patient has been no recent fever or rigors. The patient has total urinary incontinence. She does not use the commode or toilet. The patient has had no recent fever or rigors. The patient is admitted for further therapy. PHYSICAL EXAMINATION: GENERAL: The patient is a well-developed, well-nourished elderly female. The patient is awake and alert. The patient is oriented x3. ABDOMEN: Soft, nontender, nondistended. Obese abdomen is noted. BACK: No CVA tenderness. LABORATORY DATA: Reviewed as well. IMPRESSION: History of urolithiasis, history of hydronephrosis, renal insufficiency, leukocytosis although improved. RECOMMENDATIONS AND PLAN: I will discuss the matter further with you and with the patient for cystoscopy, ureteroscopy, possible laser lithotripsy and stone basketing. Further therapy to follow according to the patient's clinical course as well as results of above. Case was discussed with the patient and with attending physician and with anesthesiologist. Joelle Cooney MD
[2018-04-05] MEDS: Sodium Chloride 0.9% 1,000 ML IV SCH (00:19)
[2018-04-05] MEDS: Piperacillin/Tazobact 3.375 GM in Sodium Chloride 0.9% 100 ML IVPB SCH ×2 (03:57→09:59)
--- NOTE | 2018-04-05 07:13 | OP ---
PROCEDURE DATE: 04/02/2018 PREOPERATIVE DIAGNOSES: Left hydronephrosis. Urolithiasis. POSTOPERATIVE DIAGNOSES: Left hydronephrosis. Urolithiasis. Cystitis. PROCEDURES: Cystoscopy. Left rigid ureteroscopy. Left flexible ureterorenoscopy. Removal of left renal debris and possible left renal stone. Left retrograde pyelogram. Insertion of left ureteral stent. OPERATING SURGEON: Joelle Cooney MD DESCRIPTION OF PROCEDURE: The patient was placed in lithotomy position. Genitalia prepped and draped sterilely. Perioperative antibiotics were administered. Procedure was formed under video endoscopic control as well as under fluoroscopic control. Anesthesia was provided by the anesthesiologist. A 22-Filipino cystoscope sheath was introduced. Urine was sent for bacteriologic examination. There was marked inflammation of bladder mucosa. The bladder was inspected. The left ureteral stent was identified. The left ureteral stent was removed along with cystoscope sheath to the level of the urethral meatus. A 0.035-inch guidewire was inserted into the left ureteral stent and passed up to level of the kidney. The stent was removed. Ureteroscopy was performed with a 7-Filipino rigid ureteroscope. The ureteroscope was introduced per urethra. A guidewire was advanced into the ureteroscope and passed up to the left pole of the kidney. Ureteroscope was advanced in atraumatic fashion up to the level of the kidney. There was no evidence of mucosal lesion or stone or tumor within the left ureter. There was debris noted within the left kidney. This was a white semisolid debris of a mucoid appearance. This debris was basketed with the stone basket and removed along with the ureteroscope. A guidewire was inserted into the ureter. Ureteral access sheath was inserted over the working wire. Ureterorenoscopy was performed with a 7-Filipino flexible ureteroscope. Multiple calyces were identified. There was a darker, more firm but not hard material located within the renal pelvis. This was removed using the stone basket. Repeat ureteroscopy and multiple calyces which were identified with retrograde pyelogram was performed. Multiple other mucoid white-yellow debris was removed as well. There was no tumor identified. There was no stone identified either within the renal pelvis or within the calyces. The upper middle and lower pole calyces were inspected. Iodinated contrast dye was instilled again to demonstrate the collecting system. The ureteroscope was removed under direct vision. A 6-Filipino multilength stent was inserted over the guidewire. Proper stent position was confirmed with fluoroscopy and endoscopy. A distal stent suture was left to exit per urethra. A Bennett catheter was inserted per urethra. The patient was returned to the supine position. The patient tolerated the procedure without complication. [place] MD Eros cc: Melvin Wayne MD
[2018-04-05 07:32] LABS: BASO # 0.1 K/uL (0.0-0.2); BASO % 0.8 % (0.0-2.0); EOS # 0.5 K/uL (0.0-0.7); EOS % 4.2 % (0.0-4.0); HEMOGLOBIN 8.3 g/dL (11.0-16.0); LYMPH # 1.3 K/uL (1.0-4.3); LYMPH % 10.8 % (20.0-40.0); MEAN CELL VOLUME 90.2 fL (81.0-99.0); MEAN CORPUSCULAR HEMOGLOBIN 29.2 pg (27.0-31.0); MEAN CORPUSCULAR HGB CONC 32.3 g/dL (33.0-37.0); MEAN PLATELET VOLUME 7.9 fL (7.2-11.7); MONO # 0.8 K/uL (0.0-0.8); MONO % 6.5 % (0.0-10.0); NEUT # 9.2 K/uL (1.8-7.0); NEUT % 77.7 % (50.0-75.0); RBC 2.86 Mil/uL (3.80-5.20); RED CELL DISTRIBUTION WIDTH 16.1 % (11.5-14.5); WHITE BLOOD COUNT 11.9 K/uL (4.8-10.8)
[2018-04-05 08:11] LABS: ALB/GLOB RATIO 0.8 (1.0-2.1); ALBUMIN 2.9 g/dL (3.5-5.0)
[2018-04-05] MEDS: (Novolin R) Insulin Human Regular 100 units/ml vial SC SCH ×4 (08:20→22:16)
--- NOTE | 2018-04-05 08:38 | CP.PCM.PN ---
Subjective - Date & Time of Evaluation Date of Evaluation: 04/03/18 Time of Evaluation: 08:36 - Subjective Subjective: Patient complaining of vomiting, nausea. She was not able to eat well. Still having some bleeding in the urinary discharge. Patient also complaining of some rash in the back. On examination: Vital signs stable. Chest good air entry regular heart sounds. Soft abdomen. Edema bilaterally noted Labs reviewed Elevated creatinine level noted. Low hemoglobin We will continue the current treatment and will follow the patient Objective - Vital Signs/Intake and Output Vital Signs (last 24 hours): Temp Pulse Resp BP Pulse Ox 97.9 F 65 20 169/89 H 96 04/05/18 07:00 04/05/18 07:00 04/05/18 07:00 04/05/18 07:00 04/05/18 07:00 Intake and Output: 04/05/18 04/05/18 06:59 18:59 Intake Total 850 Output Total 1800 Balance -950 - Medications Medications: Current Medications Acetaminophen (Tylenol 325mg Tab) 650 mg PO Q4 PRN PRN Reason: Pain, Mild (1-3) Last Admin: 04/05/18 08:25 Dose: 650 mg Alprazolam (Xanax) 0.5 mg PO Q8H PRN PRN Reason: Anxiety Last Admin: 04/05/18 08:19 Dose: 0.5 mg Amlodipine Besylate (Norvasc) 10 mg PO DAILY [facility] Last Admin: 04/02/18 09:02 Dose: Not Given Artificial Tears (Artificial Tears) 0 ml OU Q12 PRN PRN Reason: Dry eyes Gabapentin (Neurontin) 300 mg PO BID [facility] Last Admin: 04/04/18 17:49 Dose: 300 mg Sodium Chloride (Sodium Chloride 0.9%) 1,000 mls @ 75 mls/hr IV .[id number] [facility] Last Admin: 04/05/18 00:19 Dose: Not Given Piperacillin Sod/Tazobactam (Sod 3.375 gm/ Sodium Chloride) 100 mls @ 100 mls/hr IVPB Q8H [facility]; Protocol Last Admin: 04/05/18 03:57 Dose: 100 mls/hr Insulin Glargine (Lantus) 30 unit SC HS [facility] Last Admin: 04/04/18 22:06 Dose: 30 unit Insulin Human Regular (Novolin R) 0 unit SC ACHS [facility]; Protocol Last Admin: 04/05/18 08:20 Dose: 2 units Ondansetron HCl (Zofran Inj) 4 mg IVP Q8 PRN PRN Reason: Nausea/Vomiting Last Admin: 04/02/18 21:22 Dose: 4 mg Pantoprazole Sodium (Protonix Inj) 40 mg IVP DAILY [facility] Last Admin: 04/04/18 09:02 Dose: 40 mg Rosuvastatin Calcium (Crestor) 10 mg PO HS [facility] Last Admin: 04/01/18 22:35 Dose: Not Given - Labs Labs: 04/05/18 07:23 04/05/18 07:23 PT 12.1 SECONDS (9.7-12.2) 04/01/18 09:27 INR 1.1 04/01/18 09:27 APTT 32 SECONDS (21-34) 04/01/18 09:27
--- NOTE | 2018-04-05 08:40 | CP.PCM.PN ---
Subjective - Date & Time of Evaluation Date of Evaluation: 04/05/18 Time of Evaluation: 08:39 - Subjective Subjective: Patient now having no pain. She has a bowel movement this morning. Bennett catheter noted. Improvement in the color of the urine noted. No bleeding noted. On examination vital signs are stable. Chest good air entry Regular Hs Abdomen soft. Nontender Patient has a bilateral pedal edema Labs reviewed Creatinine level is elevated, but improving. She is also having low hemoglobin, will monitor no acute bleeding at this time We will get infectious disease and renal evaluation and will follow the patient. Repeat urinalysis and urine culture Objective - Vital Signs/Intake and Output Vital Signs (last 24 hours): Temp Pulse Resp BP Pulse Ox 97.9 F 65 20 169/89 H 96 04/05/18 07:00 04/05/18 07:00 04/05/18 07:00 04/05/18 07:00 04/05/18 07:00 Intake and Output: 04/05/18 04/05/18 06:59 18:59 Intake Total 850 Output Total 1800 Balance -950 - Medications Medications: Current Medications Acetaminophen (Tylenol 325mg Tab) 650 mg PO Q4 PRN PRN Reason: Pain, Mild (1-3) Last Admin: 04/05/18 08:25 Dose: 650 mg Alprazolam (Xanax) 0.5 mg PO Q8H PRN PRN Reason: Anxiety Last Admin: 04/05/18 08:19 Dose: 0.5 mg Amlodipine Besylate (Norvasc) 10 mg PO DAILY [facility] Last Admin: 04/02/18 09:02 Dose: Not Given Artificial Tears (Artificial Tears) 0 ml OU Q12 PRN PRN Reason: Dry eyes Gabapentin (Neurontin) 300 mg PO BID [facility] Last Admin: 04/04/18 17:49 Dose: 300 mg Sodium Chloride (Sodium Chloride 0.9%) 1,000 mls @ 75 mls/hr IV .[id number] [facility] Last Admin: 04/05/18 00:19 Dose: Not Given Piperacillin Sod/Tazobactam (Sod 3.375 gm/ Sodium Chloride) 100 mls @ 100 mls/hr IVPB Q8H [facility]; Protocol Last Admin: 04/05/18 03:57 Dose: 100 mls/hr Insulin Glargine (Lantus) 30 unit SC HS [facility] Last Admin: 04/04/18 22:06 Dose: 30 unit Insulin Human Regular (Novolin R) 0 unit SC [facility]; Protocol Last Admin: 04/05/18 08:20 Dose: 2 units Ondansetron HCl (Zofran Inj) 4 mg IVP Q8 PRN PRN Reason: Nausea/Vomiting Last Admin: 04/02/18 21:22 Dose: 4 mg Pantoprazole Sodium (Protonix Inj) 40 mg IVP DAILY [facility] Last Admin: 04/04/18 09:02 Dose: 40 mg Rosuvastatin Calcium (Crestor) 10 mg PO [facility] Last Admin: 04/01/18 22:35 Dose: Not Given - Labs Labs: 04/05/18 07:23 04/05/18 07:23 PT 12.1 SECONDS (9.7-12.2) 04/01/18 09:27 INR 1.1 04/01/18 09:27 APTT 32 SECONDS (21-34) 04/01/18 09:27
[2018-04-05 10:57] LABS: SQUAMOUS EPITHIAL 1 /hpf (0-5); URINE BACTERIA RARE (<OCC)
[2018-04-05 10:58] LABS: URINE BILIRUBIN NEGATIVE (NEGATIVE); URINE BLOOD 2+ (NEGATIVE); URINE CLARITY Hazy (Clear); URINE COLOR Straw (YELLOW); URINE GLUCOSE (UA) 1+ mg/dL (Normal); URINE LEUKOCYTE ESTERASE 3+ Leu/uL (Negative); URINE PROTEIN 1+ mg/dL (NEGATIVE); URINE UROBILINOGEN NORMAL mg/dL (0.2-1.0)
--- NOTE | 2018-04-05 11:37 | CP.PCM.CON ---
History of Present Illness - History of Present Illness History of Present Illness: 72 year-old female with history of diabetes, hypertension, hypercholesterolemia history of CAD, status post stent, also history of osteoarthritis was sent from [facility] because of not feeling well. 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 Had IZZY few weeks ago fro urosepsis, but recovered. Does have CKD, HTN, CAD. Fever and chills were present. But she is not in any distress when seen; ureteral stent was just removed FH- no CKD Other past medical history: Diabetes, hypertension, hypercholesterolemia, CAD, status post stent. Surgical history include hysterectomy, cholecystectomy Allergy there was a concern about the questionable penicillin allergy, but in the emergency room patient received Zosyn without any problem. Ex-smoker. Denies any alcohol. Currently [facility] resident. Review of system: Noted from the chart. No headache. But weakness, recurrent falls in the past. No lung symptoms. Denies any chest pain. No abdominal pain. But for the last 2 days increasing abdominal pain nausea vomiting and also complaining of burning frequent incontinent urine Review of Systems - Constitutional Constitutional: As Per HPI, Chills, Fever - EENT Eyes: absent: As Per HPI, Blind Spots, Blurred Vision, Change in Vision, Decreased Night Vision, Diplopia, Discharge, Dry Eye, Exophthalmos, Floaters, Irritation, Itchy Eyes, Loss of Peripheral Vision, Pain, Photophobia, Requires Corrective Lenses, Sees Flashes, Spots in Vision, Tunnel Vision, Other Visual Disturbances, Loss of Vision, Other Ears: absent: As Per HPI, Decreased Hearing, Ear Discharge, Ear Pain, Tinnitus, Abnormal Hearing, Disequilibrium, Dizziness, Other Nose/Mouth/Throat: absent: As Per HPI, Epistaxis, Nasal Congestion, Nasal Discharge, Nasal Obstruction, Nasal Trauma, Nose Pain, Post Nasal Drip, Sinus Pain, Sinus Pressure, Bleeding Gums, Change in Voice, Dental Pain, Dry Mouth, Dysphagia, Halitosis, Hoarsness, Lip Swelling, Mouth Lesions, Mouth Pain, Odynophagia, Sore Throat, Throat Swelling, Tongue Swelling, Facial Pain, Neck Pain, Neck Mass, Other - Cardiovascular Cardiovascular: As Per HPI - Respiratory Respiratory: absent: As Per HPI, Cough, Dyspnea, Hemoptysis, Dyspnea on Exertion, Wheezing, Snoring, Stridor, Pain on Inspiration, Chest Congestion, Excessive Mucous Production, Change in Mucous Color, Pain with Coughing, Other - Gastrointestinal Gastrointestinal: Nausea, Vomiting - Genitourinary Genitourinary: As Per HPI - Musculoskeletal Musculoskeletal: Muscle Cramps, Muscle Weakness, Myalgias Past Patient History - Infectious Disease Hx of Infectious Diseases: None - Past Medical History & Family History Past Medical History?: Yes Past Family History: Reviewed and not pertinent - Past Social History Smoking Status: Former Smoker Chewing Tobacco Use: No Cigar Use: No Alcohol: None Drugs: Denies Home Situation {Lives}: Snf - CARDIAC Hx Hypercholesterolemia: Yes Hx Hypertension: Yes - PULMONARY Hx Respiratory Disorders: No - NEUROLOGICAL Hx Neurological Disorder: No - HEENT Hx HEENT Problems: Yes Hx Cataracts: Yes - RENAL Hx Chronic Kidney Disease: No - ENDOCRINE/METABOLIC Hx Diabetes Mellitus Type 1: Yes - HEMATOLOGICAL/ONCOLOGICAL Hx Cancer: No - INTEGUMENTARY Hx Dermatological Problems: No - MUSCULOSKELETAL/RHEUMATOLOGICAL Hx Arthritis: Yes - GASTROINTESTINAL Hx Gastrointestinal Disorders: Yes Hx Irritable Bowel: Yes Other/Comment: HX: DYSPHAGIA - GENITOURINARY/GYNECOLOGICAL Hx Genitourinary Disorders: Yes Hx Uterine Cancer: Yes (hysterectomy 2007) Other/Comment: ESBL in urine, as per [facility] chart. - PSYCHIATRIC Hx Anxiety: Yes Hx Depression: Yes Hx Substance Use: No - SURGICAL HISTORY Hx Appendectomy: Yes Hx Cholecystectomy: Yes (1975) Hx Coronary Stent: Yes (3) - ANESTHESIA Hx Anesthesia: Yes Hx Anesthesia Reactions: No Hx Malignant Hyperthermia: No Meds Allergies/Adverse Reactions: Allergies Allergy/AdvReac Type Severity Reaction Status Date / Time nafarelin Allergy SHORTNESS Verified 04/01/18 08:11 OF BREATH nafcillin Allergy REDNESS Verified 04/01/18 08:11 Penicillins Allergy SHORTNESS Verified 04/01/18 08:11 OF BREATH - Medications Medications: Current Medications Acetaminophen (Tylenol 325mg Tab) 650 mg PO Q4 PRN PRN Reason: Pain, Mild (1-3) Last Admin: 04/05/18 08:25 Dose: 650 mg Alprazolam (Xanax) 0.5 mg PO Q8H PRN PRN Reason: Anxiety Last Admin: 04/05/18 08:19 Dose: 0.5 mg Amlodipine Besylate (Norvasc) 10 mg PO DAILY [facility] Last Admin: 04/05/18 09:58 Dose: 10 mg Artificial Tears (Artificial Tears) 0 ml OU Q12 PRN PRN Reason: Dry eyes Gabapentin (Neurontin) 300 mg PO BID [facility] Last Admin: 04/05/18 09:58 Dose: 300 mg Piperacillin Sod/Tazobactam (Sod 3.375 gm/ Sodium Chloride) 100 mls @ 100 mls/hr IVPB Q8H [facility]; Protocol Last Admin: 04/05/18 09:59 Dose: 100 mls/hr Insulin Glargine (Lantus) 30 unit SC HS [facility] Last Admin: 04/04/18 22:06 Dose: 30 unit Insulin Human Regular (Novolin R) 0 unit SC ACHS [facility]; Protocol Last Admin: 04/05/18 08:20 Dose: 2 units Pantoprazole Sodium (Protonix Inj) 40 mg IVP DAILY [facility] Last Admin: 04/05/18 09:58 Dose: 40 mg Rosuvastatin Calcium (Crestor) 10 mg PO [facility] Last Admin: 04/01/18 22:35 Dose: Not Given Physical Exam - Constitutional Appears: No Acute Distress, Chronically Ill - Head Exam Head Exam: ATRAUMATIC, NORMAL INSPECTION - Eye Exam Eye Exam: EOMI, Normal appearance - Neck Exam Neck exam: Positive for: Normal Inspection. Negative for: Tenderness - Respiratory Exam Respiratory Exam: Clear to Auscultation Bilateral, NORMAL BREATHING PATTERN - Cardiovascular Exam Cardiovascular Exam: REGULAR RHYTHM, +S1 - GI/Abdominal Exam GI & Abdominal Exam: Soft. absent: Tenderness - Extremities Exam Extremities exam: Positive for: normal inspection. Negative for: tenderness - Neurological Exam Neurological exam: Alert, CN II-XII Intact - Skin Skin Exam: Dry, Warm Results - Vital Signs Recent Vital Signs: Last Vital Signs Temp 97.9 F 04/05/18 07:00 Pulse 65 04/05/18 07:00 Resp 20 04/05/18 07:00 BP 169/89 H 04/05/18 07:00 Pulse Ox 96 04/05/18 07:00 - Labs Result Diagrams: 04/05/18 07:23 04/05/18 07:23 Labs: Laboratory Results - last 24 hr 04/04/18 04/04/18 04/04/18 11:48 16:36 21:39 WBC RBC Hgb Hct MCV MCH MCHC RDW Plt Count MPV Neut % (Auto) Lymph % (Auto) [place] % (Auto) Eos % (Auto) Baso % (Auto) Neut # (Auto) Lymph # (Auto) [place] # (Auto) Eos # (Auto) Baso # (Auto) Sodium Potassium Chloride Carbon Dioxide Anion Gap BUN Creatinine Est GFR ( Amer) Est GFR (Non-Af Amer) POC Glucose (mg/dL) 194 H 271 H 223 H Random Glucose Calcium Total Bilirubin AST ALT Alkaline Phosphatase Total Protein Albumin Globulin Albumin/Globulin Ratio Urine Color Urine Clarity Urine pH Ur Specific [place] Urine Protein Urine Glucose (UA) Urine Ketones Urine Blood Urine Nitrate Urine Bilirubin Urine Urobilinogen Ur Leukocyte Esterase Urine WBC (Auto) Urine RBC (Auto) Ur Squamous Epith Cells Urine Bacteria 04/05/18 04/05/18 04/05/18 06:11 07:23 07:23 WBC 11.9 H RBC 2.86 L Hgb 8.3 L Hct 25.8 L MCV 90.2 MCH 29.2 MCHC 32.3 L RDW 16.1 H Plt Count 256 MPV 7.9 Neut % (Auto) 77.7 H Lymph % (Auto) 10.8 L [place] % (Auto) 6.5 Eos % (Auto) 4.2 H Baso % (Auto) 0.8 Neut # (Auto) 9.2 H Lymph # (Auto) 1.3 [place] # (Auto) 0.8 Eos # (Auto) 0.5 Baso # (Auto) 0.1 Sodium 136 Potassium 4.6 Chloride 107 Carbon Dioxide 22 Anion Gap 12 BUN 48 H Creatinine 2.5 H Est GFR ( Amer) 23 Est GFR (Non-Af Amer) 19 POC Glucose (mg/dL) 211 H Random Glucose 195 H Calcium 8.0 L Total Bilirubin 0.2 AST 22 ALT 16 Alkaline Phosphatase 101 Total Protein 6.5 Albumin 2.9 L Globulin 3.5 Albumin/Globulin Ratio 0.8 L Urine Color Urine Clarity Urine pH Ur Specific [place] Urine Protein Urine Glucose (UA) Urine Ketones Urine Blood Urine Nitrate Urine Bilirubin Urine Urobilinogen Ur Leukocyte Esterase Urine WBC (Auto) Urine RBC (Auto) Ur Squamous Epith Cells Urine Bacteria 04/05/18 04/05/18 10:38 10:57 WBC RBC Hgb Hct MCV MCH MCHC RDW Plt Count MPV Neut % (Auto) Lymph % (Auto) [place] % (Auto) Eos % (Auto) Baso % (Auto) Neut # (Auto) Lymph # (Auto) [place] # (Auto) Eos # (Auto) Baso # (Auto) Sodium Potassium Chloride Carbon Dioxide Anion Gap BUN Creatinine Est GFR ( Amer) Est GFR (Non-Af Amer) POC Glucose (mg/dL) 220 H Random Glucose Calcium Total Bilirubin AST ALT Alkaline Phosphatase Total Protein Albumin Globulin Albumin/Globulin Ratio Urine Color Straw Urine Clarity Hazy Urine pH 6.0 Ur Specific [place] 1.006 Urine Protein 1+ H Urine Glucose (UA) 1+ Urine Ketones Negative Urine Blood 2+ H Urine Nitrate Negative Urine Bilirubin Negative Urine Urobilinogen Normal Ur Leukocyte Esterase 3+ H Urine WBC (Auto) 91 H Urine RBC (Auto) 15 H Ur Squamous Epith Cells 1 Urine Bacteria Rare Assessment & Plan (1) ESBL (extended spectrum beta-lactamase) producing bacteria infection Status: Acute (2) Chronic kidney disease, stage IV (severe) Status: Acute - Assessment and Plan (Free Text) Plan: IV ABs as per ID IV fluids - NS Repeat chemistries
[2018-04-05] MEDS ORDERED: Cefepime IV 1 gm in Dextrose 1 GM/50 ML BAG IVPB SCH (18:00)
--- NOTE | 2018-04-05 18:00 | CP.PCM.CON ---
History of Present Illness - History of Present Illness History of Present Illness: INFECTIOUS DISEASE CONSULTATION INGA MENG MD, FACP 5T 555 04/05/2018 CHART REVIEWED PT EXAMINED CASE DISCUSSED AN INFECTIOUS DISEASE CONSULTATION WAS REQUESTED TODAY 2ND PSEUDOMONAS UTI/SEPSIS AND DECREASED RENAL FUNCTION. 72 year-old female with history of diabetes, hypertension, hypercholesterolemia, history of CAD, status post stent, AND PSEUDOMONAS UTI, also history of osteoarthritis was sent from intermediate because of not feeling well. 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 Had IZZY few weeks ago fro urosepsis, but recovered, 2ND PROTEUS MIRABLIS IN THE BLOOD AND PROVIDENCIA STUARTII IN THE URINE. Does have CKD, HTN, CAD. Fever and chills were present. But she is not in any distress when seen; ureteral stent was just removed BY UROLOGY. FH- no CKD Other past medical history: Diabetes, hypertension, hypercholesterolemia, CAD, status post stent, UTI AND RENAL INSUFFICIENCY. Surgical history include hysterectomy, cholecystectomy Allergy there was a concern about the questionable penicillin allergy, but in the emergency room patient received Zosyn without any problem. Ex-smoker. Denies any alcohol. Currently intermediate resident. Review of system: Noted from the chart. No headache. But weakness, recurrent falls in the past. No lung symptoms. Denies any chest pain. No abdominal pain. But for the last 2 days increasing abdominal pain nausea vomiting and also complaining of burning frequent incontinent urine Review of Systems - Constitutional Constitutional: As Per HPI, Chills, Fever - EENT Eyes: absent: As Per HPI, Blind Spots, Blurred Vision, Change in Vision, Decreased Night Vision, Diplopia, Discharge, Dry Eye, Exophthalmos, Floaters, Irritation, Itchy Eyes, Loss of Peripheral Vision, Pain, Photophobia, Requires Corrective Lenses, Sees Flashes, Spots in Vision, Tunnel Vision, Other Visual Disturbances, Loss of Vision, Other Ears: absent: As Per HPI, Decreased Hearing, Ear Discharge, Ear Pain, Tinnitus, Abnormal Hearing, Disequilibrium, Dizziness, Other Nose/Mouth/Throat: absent: As Per HPI, Epistaxis, Nasal Congestion, Nasal Discharge, Nasal Obstruction, Nasal Trauma, Nose Pain, Post Nasal Drip, Sinus Pain, Sinus Pressure, Bleeding Gums, Change in Voice, Dental Pain, Dry Mouth, Dysphagia, Halitosis, Hoarsness, Lip Swelling, Mouth Lesions, Mouth Pain, Odynophagia, Sore Throat, Throat Swelling, Tongue Swelling, Facial Pain, Neck Pain, Neck Mass, Other - Cardiovascular Cardiovascular: As Per HPI - Respiratory Respiratory: absent: As Per HPI, Cough, Dyspnea, Hemoptysis, Dyspnea on Exertion, Wheezing, Snoring, Stridor, Pain on Inspiration, Chest Congestion, Excessive Mucous Production, Change in Mucous Color, Pain with Coughing, Other - Gastrointestinal Gastrointestinal: Nausea, Vomiting - Genitourinary Genitourinary: As Per HPI - Musculoskeletal Musculoskeletal: Muscle Cramps, Muscle Weakness, Myalgias Past Patient History - Infectious Disease Hx of Infectious Diseases: UTI'S AND BACTEREMIA - Past Medical History & Family History Past Medical History?: Yes Past Family History: Reviewed and not pertinent - Past Social History Smoking Status: Former Smoker Chewing Tobacco Use: No Cigar Use: No Alcohol: None Drugs: Denies Home Situation {Lives}: Skilled Nursing - CARDIAC Hx Hypercholesterolemia: Yes Hx Hypertension: Yes - PULMONARY Hx Respiratory Disorders: No - NEUROLOGICAL Hx Neurological Disorder: No - HEENT Hx HEENT Problems: Yes Hx Cataracts: Yes - RENAL Hx Chronic Kidney Disease: No - ENDOCRINE/METABOLIC Hx Diabetes Mellitus Type 1: Yes - HEMATOLOGICAL/ONCOLOGICAL Hx Cancer: No - INTEGUMENTARY Hx Dermatological Problems: No - MUSCULOSKELETAL/RHEUMATOLOGICAL Hx Arthritis: Yes - GASTROINTESTINAL Hx Gastrointestinal Disorders: Yes Hx Irritable Bowel: Yes Other/Comment: HX: DYSPHAGIA - GENITOURINARY/GYNECOLOGICAL Hx Genitourinary Disorders: Yes Hx Uterine Cancer: Yes (hysterectomy 2007) Other/Comment: ESBL in urine, as per intermediate chart. - PSYCHIATRIC Hx Anxiety: Yes Hx Depression: Yes Hx Substance Use: No - SURGICAL HISTORY Hx Appendectomy: Yes Hx Cholecystectomy: Yes (1975) Hx Coronary Stent: Yes () - ANESTHESIA Hx Anesthesia: Yes Hx Anesthesia Reactions: No Hx Malignant Hyperthermia: No Meds Allergies/Adverse Reactions: Allergies Allergy/AdvReac Type Severity Reaction Status Date / Time nafarelin Allergy SHORTNESS Verified 04/01/18 08:11 OF BREATH nafcillin Allergy REDNESS Verified 04/01/18 08:11 Penicillins Allergy SHORTNESS Verified 04/01/18 08:11 OF BREATH - Medications Medications: Current Medications Acetaminophen (Tylenol 325mg Tab) 650 mg PO Q4 PRN PRN Reason: Pain, Mild (1-3) Last Admin: 04/05/18 08:25 Dose: 650 mg Alprazolam (Xanax) 0.5 mg PO Q8H PRN PRN Reason: Anxiety Last Admin: 04/05/18 08:19 Dose: 0.5 mg Amlodipine Besylate (Norvasc) 10 mg PO DAILY [facility] Last Admin: 04/05/18 09:58 Dose: 10 mg Artificial Tears (Artificial Tears) 0 ml OU Q12 PRN PRN Reason: Dry eyes Gabapentin (Neurontin) 300 mg PO BID [facility] Last Admin: 04/05/18 09:58 Dose: 300 mg Piperacillin Sod/Tazobactam (Sod 3.375 gm/ Sodium Chloride) 100 mls @ 100 mls/hr IVPB Q8H [facility]; Protocol Last Admin: 04/05/18 09:59 Dose: 100 mls/hr Insulin Glargine (Lantus) 30 unit SC HS [facility] Last Admin: 04/04/18 22:06 Dose: 30 unit Insulin Human Regular (Novolin R) 0 unit SC ACHS [facility]; Protocol Last Admin: 04/05/18 08:20 Dose: 2 units Pantoprazole Sodium (Protonix Inj) 40 mg IVP DAILY [facility] Last Admin: 04/05/18 09:58 Dose: 40 mg Rosuvastatin Calcium (Crestor) 10 mg PO HS [facility] Last Admin: 04/01/18 22:35 Dose: Not Given Physical Exam - Constitutional Appears: No Acute Distress, Chronically Ill - Head Exam Head Exam: ATRAUMATIC, NORMAL INSPECTION - Eye Exam Eye Exam: EOMI, Normal appearance - Neck Exam Neck exam: Positive for: Normal Inspection. Negative for: Tenderness - Respiratory Exam Respiratory Exam: Clear to Auscultation Bilateral, NORMAL BREATHING PATTERN - Cardiovascular Exam Cardiovascular Exam: REGULAR RHYTHM, +S1 - GI/Abdominal Exam GI & Abdominal Exam: Soft. absent: Tenderness - Extremities Exam Extremities exam: Positive for: normal inspection. Negative for: tenderness - Neurological Exam Neurological exam: Alert, CN II-XII Intact - Skin Skin Exam: Dry, Warm Results - Vital Signs Recent Vital Signs: Last Vital Signs Temp 97.9 F 04/05/18 07:00 Pulse 65 04/05/18 07:00 Resp 20 04/05/18 07:00 BP 169/89 H 04/05/18 07:00 Pulse Ox 96 04/05/18 07:00 - Labs Result Diagrams: 04/05/18 07:23 04/05/18 07:23 Labs: Laboratory Results - last 24 hr 04/04/18 04/04/18 04/04/18 11:48 16:36 21:39 WBC RBC Hgb Hct MCV MCH MCHC RDW Plt Count MPV Neut % (Auto) Lymph % (Auto) [place] % (Auto) Eos % (Auto) Baso % (Auto) Neut # (Auto) Lymph # (Auto) [place] # (Auto) Eos # (Auto) Baso # (Auto) Sodium Potassium Chloride Carbon Dioxide Anion Gap BUN Creatinine Est GFR ( Amer) Est GFR (Non-Af Amer) POC Glucose (mg/dL) 194 H 271 H 223 H Random Glucose Calcium Total Bilirubin AST ALT Alkaline Phosphatase Total Protein Albumin Globulin Albumin/Globulin Ratio Urine Color Urine Clarity Urine pH Ur Specific [place] Urine Protein Urine Glucose (UA) Urine Ketones Urine Blood Urine Nitrate Urine Bilirubin Urine Urobilinogen Ur Leukocyte Esterase Urine WBC (Auto) Urine RBC (Auto) Ur Squamous Epith Cells Urine Bacteria 04/05/18 04/05/18 04/05/18 06:11 07:23 07:23 WBC 11.9 H RBC 2.86 L Hgb 8.3 L Hct 25.8 L MCV 90.2 MCH 29.2 MCHC 32.3 L RDW 16.1 H Plt Count 256 MPV 7.9 Neut % (Auto) 77.7 H Lymph % (Auto) 10.8 L [place] % (Auto) 6.5 Eos % (Auto) 4.2 H Baso % (Auto) 0.8 Neut # (Auto) 9.2 H Lymph # (Auto) 1.3 [place] # (Auto) 0.8 Eos # (Auto) 0.5 Baso # (Auto) 0.1 Sodium 136 Potassium 4.6 Chloride 107 Carbon Dioxide 22 Anion Gap 12 BUN 48 H Creatinine 2.5 H Est GFR ( Amer) 23 Est GFR (Non-Af Amer) 19 POC Glucose (mg/dL) 211 H Random Glucose 195 H Calcium 8.0 L Total Bilirubin 0.2 AST 22 ALT 16 Alkaline Phosphatase 101 Total Protein 6.5 Albumin 2.9 L Globulin 3.5 Albumin/Globulin Ratio 0.8 L Urine Color Urine Clarity Urine pH Ur Specific [place] Urine Protein Urine Glucose (UA) Urine Ketones Urine Blood Urine Nitrate Urine Bilirubin Urine Urobilinogen Ur Leukocyte Esterase Urine WBC (Auto) Urine RBC (Auto) Ur Squamous Epith Cells Urine Bacteria 04/05/18 04/05/18 10:38 10:57 WBC RBC Hgb Hct MCV MCH MCHC RDW Plt Count MPV Neut % (Auto) Lymph % (Auto) [place] % (Auto) Eos % (Auto) Baso % (Auto) Neut # (Auto) Lymph # (Auto) [place] # (Auto) Eos # (Auto) Baso # (Auto) Sodium Potassium Chloride Carbon Dioxide Anion Gap BUN Creatinine Est GFR ( Amer) Est GFR (Non-Af Amer) POC Glucose (mg/dL) 220 H Random Glucose Calcium Total Bilirubin AST ALT Alkaline Phosphatase Total Protein Albumin Globulin Albumin/Globulin Ratio Urine Color Straw Urine Clarity Hazy Urine pH 6.0 Ur Specific [place] 1.006 Urine Protein 1+ H Urine Glucose (UA) 1+ Urine Ketones Negative Urine Blood 2+ H Urine Nitrate Negative Urine Bilirubin Negative Urine Urobilinogen Normal Ur Leukocyte Esterase 3+ H Urine WBC (Auto) 91 H Urine RBC (Auto) 15 H Ur Squamous Epith Cells 1 Urine Bacteria Rare Assessment & Plan (1) PSEUDOMONAS UTI WITH RENAL INSUFFICIENCY Status: Acute (2) Chronic kidney disease, stage IV (severe) Status: Acute - Assessment and Plan (Free Text) Plan: IV ABs-CEFEPIME 1GM IVPB DAILY IV fluids - NS Repeat chemistries, WITH ANY RENAL ABNORMALITIES, MASSES, STONES, SHE WILL BE A SET UP FOR REPEATED INECTIONS. INGA MENG MD, FACP Past Patient History - Infectious Disease Hx of Infectious Diseases: None - Past Medical History & Family History Past Medical History?: Yes Past Family History: Reviewed and not pertinent - Past Social History Smoking Status: Former Smoker Chewing Tobacco Use: No Cigar Use: No Alcohol: None Drugs: Denies Home Situation {Lives}: Skilled Nursing - CARDIAC Hx Hypercholesterolemia: Yes Hx Hypertension: Yes - PULMONARY Hx Respiratory Disorders: No - NEUROLOGICAL Hx Neurological Disorder: No - HEENT Hx HEENT Problems: Yes Hx Cataracts: Yes - RENAL Hx Chronic Kidney Disease: No - ENDOCRINE/METABOLIC Hx Diabetes Mellitus Type 1: Yes - HEMATOLOGICAL/ONCOLOGICAL Hx Cancer: No - INTEGUMENTARY Hx Dermatological Problems: No - MUSCULOSKELETAL/RHEUMATOLOGICAL Hx Arthritis: Yes - GASTROINTESTINAL Hx Gastrointestinal Disorders: Yes Hx Irritable Bowel: Yes Other/Comment: HX: DYSPHAGIA - GENITOURINARY/GYNECOLOGICAL Hx Genitourinary Disorders: Yes Hx Uterine Cancer: Yes (hysterectomy 2007) Other/Comment: ESBL in urine, as per intermediate chart. - PSYCHIATRIC Hx Anxiety: Yes Hx Depression: Yes Hx Substance Use: No - SURGICAL HISTORY Hx Appendectomy: Yes Hx Cholecystectomy: Yes (1975) Hx Coronary Stent: Yes (3) - ANESTHESIA Hx Anesthesia: Yes Hx Anesthesia Reactions: No Hx Malignant Hyperthermia: No Meds Allergies/Adverse Reactions: Allergies Allergy/AdvReac Type Severity Reaction Status Date / Time nafarelin Allergy SHORTNESS Verified 04/01/18 08:11 OF BREATH nafcillin Allergy REDNESS Verified 04/01/18 08:11 Penicillins Allergy SHORTNESS Verified 04/01/18 08:11 OF BREATH - Medications Medications: Current Medications Acetaminophen (Tylenol 325mg Tab) 650 mg PO Q4 PRN PRN Reason: Pain, Mild (1-3) Last Admin: 04/05/18 08:25 Dose: 650 mg Alprazolam (Xanax) 0.5 mg PO Q8H PRN PRN Reason: Anxiety Last Admin: 04/05/18 08:19 Dose: 0.5 mg Amlodipine Besylate (Norvasc) 10 mg PO DAILY [facility] Last Admin: 04/05/18 09:58 Dose: 10 mg Artificial Tears (Artificial Tears) 0 ml OU Q12 PRN PRN Reason: Dry eyes Gabapentin (Neurontin) 300 mg PO BID [facility] Last Admin: 04/05/18 09:58 Dose: 300 mg Piperacillin Sod/Tazobactam (Sod 3.375 gm/ Sodium Chloride) 100 mls @ 100 mls/hr IVPB Q8H [facility]; Protocol Last Admin: 04/05/18 09:59 Dose: 100 mls/hr Insulin Glargine (Lantus) 30 unit SC [facility] Last Admin: 04/04/18 22:06 Dose: 30 unit Insulin Human Regular (Novolin R) 0 unit SC ACHS [facility]; Protocol Last Admin: 04/05/18 12:19 Dose: 2 units Pantoprazole Sodium (Protonix Inj) 40 mg IVP DAILY [facility] Last Admin: 04/05/18 09:58 Dose: 40 mg Rosuvastatin Calcium (Crestor) 10 mg PO [facility] Last Admin: 04/01/18 22:35 Dose: Not Given Results - Vital Signs Recent Vital Signs: Last Vital Signs Temp 97.5 F L 04/05/18 15:44 Pulse 64 04/05/18 15:44 Resp 20 04/05/18 15:44 BP 148/77 04/05/18 15:44 Pulse Ox 95 04/05/18 15:44 - Labs Result Diagrams: 04/05/18 07:23 04/05/18 07:23 Labs: Laboratory Results - last 24 hr 04/04/18 04/05/18 04/05/18 21:39 06:11 07:23 WBC 11.9 H RBC 2.86 L Hgb 8.3 L Hct 25.8 L MCV 90.2 MCH 29.2 MCHC 32.3 L RDW 16.1 H Plt Count 256 MPV 7.9 Neut % (Auto) 77.7 H Lymph % (Auto) 10.8 L [place] % (Auto) 6.5 Eos % (Auto) 4.2 H Baso % (Auto) 0.8 Neut # (Auto) 9.2 H Lymph # (Auto) 1.3 [place] # (Auto) 0.8 Eos # (Auto) 0.5 Baso # (Auto) 0.1 Sodium Potassium Chloride Carbon Dioxide Anion Gap BUN Creatinine Est GFR ( Amer) Est GFR (Non-Af Amer) POC Glucose (mg/dL) 223 H 211 H Random Glucose Calcium Total Bilirubin AST ALT Alkaline Phosphatase Total Protein Albumin Globulin Albumin/Globulin Ratio Urine Color Urine Clarity Urine pH Ur Specific [place] Urine Protein Urine Glucose (UA) Urine Ketones Urine Blood Urine Nitrate Urine Bilirubin Urine Urobilinogen Ur Leukocyte Esterase Urine WBC (Auto) Urine RBC (Auto) Ur Squamous Epith Cells Urine Bacteria 04/05/18 04/05/18 04/05/18 07:23 10:38 10:57 WBC RBC Hgb Hct MCV MCH MCHC RDW Plt Count MPV Neut % (Auto) Lymph % (Auto) [place] % (Auto) Eos % (Auto) Baso % (Auto) Neut # (Auto) Lymph # (Auto) [place] # (Auto) Eos # (Auto) Baso # (Auto) Sodium 136 Potassium 4.6 Chloride 107 Carbon Dioxide 22 Anion Gap 12 BUN 48 H Creatinine 2.5 H Est GFR ( Amer) 23 Est GFR (Non-Af Amer) 19 POC Glucose (mg/dL) 220 H Random Glucose 195 H Calcium 8.0 L Total Bilirubin 0.2 AST 22 ALT 16 Alkaline Phosphatase 101 Total Protein 6.5 Albumin 2.9 L Globulin 3.5 Albumin/Globulin Ratio 0.8 L Urine Color Straw Urine Clarity Hazy Urine pH 6.0 Ur Specific [place] 1.006 Urine Protein 1+ H Urine Glucose (UA) 1+ Urine Ketones Negative Urine Blood 2+ H Urine Nitrate Negative Urine Bilirubin Negative Urine Urobilinogen Normal Ur Leukocyte Esterase 3+ H Urine WBC (Auto) 91 H Urine RBC (Auto) 15 H Ur Squamous Epith Cells 1 Urine Bacteria Rare 04/05/18 16:01 WBC RBC Hgb Hct MCV MCH MCHC RDW Plt Count MPV Neut % (Auto) Lymph % (Auto) [place] % (Auto) Eos % (Auto) Baso % (Auto) Neut # (Auto) Lymph # (Auto) [place] # (Auto) Eos # (Auto) Baso # (Auto) Sodium Potassium Chloride Carbon Dioxide Anion Gap BUN Creatinine Est GFR ( Amer) Est GFR (Non-Af Amer) POC Glucose (mg/dL) 208 H Random Glucose Calcium Total Bilirubin AST ALT Alkaline Phosphatase Total Protein Albumin Globulin Albumin/Globulin Ratio Urine Color Urine Clarity Urine pH Ur Specific [place] Urine Protein Urine Glucose (UA) Urine Ketones Urine Blood Urine Nitrate Urine Bilirubin Urine Urobilinogen Ur Leukocyte Esterase Urine WBC (Auto) Urine RBC (Auto) Ur Squamous Epith Cells Urine Bacteria
[2018-04-05] MEDS: (Lantus) Insulin Glargine, Recombinant SC SCH (22:15)
--- NOTE | 2018-04-05 22:27 | PCM.URO ---
Urology Progress Note - General General: No Complaints, Tolerating Diet - Subjective Abdominal Pain: No Flank Pain: No Nausea: No Vomiting: No Hematuria: No Dsypnea: No Chest Pain: No Fever & Chills: No - Objective Lab Studies: Reviewed (Improved re leukocytosis) Lab Results Last 24 Hours: Laboratory Results - last 24 hr 04/05/18 04/05/18 04/05/18 06:11 07:23 07:23 WBC 11.9 H RBC 2.86 L Hgb 8.3 L Hct 25.8 L MCV 90.2 MCH 29.2 MCHC 32.3 L RDW 16.1 H Plt Count 256 MPV 7.9 Neut % (Auto) 77.7 H Lymph % (Auto) 10.8 L [place] % (Auto) 6.5 Eos % (Auto) 4.2 H Baso % (Auto) 0.8 Neut # (Auto) 9.2 H Lymph # (Auto) 1.3 [place] # (Auto) 0.8 Eos # (Auto) 0.5 Baso # (Auto) 0.1 Sodium 136 Potassium 4.6 Chloride 107 Carbon Dioxide 22 Anion Gap 12 BUN 48 H Creatinine 2.5 H Est GFR ( Amer) 23 Est GFR (Non-Af Amer) 19 POC Glucose (mg/dL) 211 H Random Glucose 195 H Calcium 8.0 L Total Bilirubin 0.2 AST 22 ALT 16 Alkaline Phosphatase 101 Total Protein 6.5 Albumin 2.9 L Globulin 3.5 Albumin/Globulin Ratio 0.8 L Urine Color Urine Clarity Urine pH Ur Specific [place] Urine Protein Urine Glucose (UA) Urine Ketones Urine Blood Urine Nitrate Urine Bilirubin Urine Urobilinogen Ur Leukocyte Esterase Urine WBC (Auto) Urine RBC (Auto) Ur Squamous Epith Cells Urine Bacteria 04/05/18 04/05/18 04/05/18 10:38 10:57 16:01 WBC RBC Hgb Hct MCV MCH MCHC RDW Plt Count MPV Neut % (Auto) Lymph % (Auto) [place] % (Auto) Eos % (Auto) Baso % (Auto) Neut # (Auto) Lymph # (Auto) [place] # (Auto) Eos # (Auto) Baso # (Auto) Sodium Potassium Chloride Carbon Dioxide Anion Gap BUN Creatinine Est GFR ( Amer) Est GFR (Non-Af Amer) POC Glucose (mg/dL) 220 H 208 H Random Glucose Calcium Total Bilirubin AST ALT Alkaline Phosphatase Total Protein Albumin Globulin Albumin/Globulin Ratio Urine Color Straw Urine Clarity Hazy Urine pH 6.0 Ur Specific [place] 1.006 Urine Protein 1+ H Urine Glucose (UA) 1+ Urine Ketones Negative Urine Blood 2+ H Urine Nitrate Negative Urine Bilirubin Negative Urine Urobilinogen Normal Ur Leukocyte Esterase 3+ H Urine WBC (Auto) 91 H Urine RBC (Auto) 15 H Ur Squamous Epith Cells 1 Urine Bacteria Rare 04/05/18 21:10 WBC RBC Hgb Hct MCV MCH MCHC RDW Plt Count MPV Neut % (Auto) Lymph % (Auto) [place] % (Auto) Eos % (Auto) Baso % (Auto) Neut # (Auto) Lymph # (Auto) [place] # (Auto) Eos # (Auto) Baso # (Auto) Sodium Potassium Chloride Carbon Dioxide Anion Gap BUN Creatinine Est GFR ( Amer) Est GFR (Non-Af Amer) POC Glucose (mg/dL) 190 H Random Glucose Calcium Total Bilirubin AST ALT Alkaline Phosphatase Total Protein Albumin Globulin Albumin/Globulin Ratio Urine Color Urine Clarity Urine pH Ur Specific [place] Urine Protein Urine Glucose (UA) Urine Ketones Urine Blood Urine Nitrate Urine Bilirubin Urine Urobilinogen Ur Leukocyte Esterase Urine WBC (Auto) Urine RBC (Auto) Ur Squamous Epith Cells Urine Bacteria Intake & Output: Intake & Output 04/05/18 04/05/18 04/06/18 06:59 18:59 06:59 Intake Total 850 Output Total 1800 1600 Balance -950 -1600 Intake: Intake, IV Amount 550 Left Upper arm 550 Oral 300 Output: Urine 1800 1600 Urethral ([place]) 1800 1600 Vital Signs: Vital Signs - 24 hr 04/04/18 04/04/18 04/05/18 23:25 23:40 07:00 Temperature 97.9 F 97.9 F Pulse Rate 66 66 70 Respiratory 20 20 Rate Blood Pressure 152/71 H 169/89 H O2 Sat by Pulse 95 96 Oximetry 04/05/18 04/05/18 04/05/18 14:22 15:00 15:44 Temperature 97.5 F L Pulse Rate 68 64 Respiratory 20 Rate Blood Pressure 148/77 O2 Sat by Pulse 96 95 Oximetry - Physical Exam Abdominal Exam: Soft, Non-Tender. absent: Non-Distended Back: No CVA Tenderness Urinary Catheter Draining Well: Yes Urine Color: Clear, Yellow (much less cloudy urine) - Plan Catheter Care: Yes Intake & Output: Yes Additional Information: IMP: stable p cysto, uretero-renoscopy. UTI. Incontinence. Poss chronic retention. P: Ureteral stent removed via suture. Antibiotic therapy - Date & Time of Note Date: 04/05/18 Time: 11:35
[2018-04-06] MEDS: (Novolin R) Insulin Human Regular 100 units/ml vial SC SCH ×4 (07:30→21:11)
[2018-04-06 08:20] LABS: ALB/GLOB RATIO 0.9 (1.0-2.1); ALBUMIN 3.2 g/dL (3.5-5.0); ALT/SGPT < 6 U/L (9-52); AST/SGOT 18 U/L (14-36); BLOOD UREA NITROGEN 37 mg/dL (7-17); CALCIUM 8.1 mg/dl (8.6-10.4); GFR NON-AFRICAN AMERICAN 21
--- NOTE | 2018-04-06 09:38 | CP.PCM.PN ---
Subjective - Date & Time of Evaluation Date of Evaluation: 04/06/18 Time of Evaluation: 09:37 - Subjective Subjective: s/p stent removal afebrile last urine cultures negative one episode of loose stool today Objective - Vital Signs/Intake and Output Vital Signs (last 24 hours): Temp Pulse Resp BP Pulse Ox 98.4 F 87 20 152/76 H 94 L 04/06/18 07:00 04/06/18 09:15 04/06/18 07:00 04/06/18 09:15 04/06/18 07:00 Intake and Output: 04/06/18 04/06/18 06:59 18:59 Output Total 1400 Balance -1400 - Medications Medications: Current Medications Acetaminophen (Tylenol 325mg Tab) 650 mg PO Q4 PRN PRN Reason: Pain, Mild (1-3) Last Admin: 04/05/18 08:25 Dose: 650 mg Alprazolam (Xanax) 0.5 mg PO Q8H PRN PRN Reason: Anxiety Last Admin: 04/06/18 07:54 Dose: 0.5 mg Amlodipine Besylate (Norvasc) 10 mg PO DAILY [facility] Last Admin: 04/06/18 09:12 Dose: 10 mg Artificial Tears (Artificial Tears) 0 ml OU Q12 PRN PRN Reason: Dry eyes Gabapentin (Neurontin) 300 mg PO BID [facility] Last Admin: 04/06/18 09:12 Dose: 300 mg Cefepime HCl (Maxipime Iv 1 Gm Premix) 1 gm in 50 mls @ 100 mls/hr IVPB Q24H [facility]; Protocol Last Admin: 04/05/18 20:57 Dose: 100 mls/hr Insulin Glargine (Lantus) 30 unit SC [facility] Last Admin: 04/05/18 22:15 Dose: 30 unit Insulin Human Regular (Novolin R) 0 unit SC [facility]; Protocol Last Admin: 04/06/18 07:30 Dose: Not Given Pantoprazole Sodium (Protonix Inj) 40 mg IVP DAILY [facility] Last Admin: 04/06/18 09:12 Dose: 40 mg Rosuvastatin Calcium (Crestor) 10 mg PO HS [facility] Last Admin: 04/05/18 22:14 Dose: 10 mg - Labs Labs: 04/05/18 07:23 04/06/18 07:31 PT 12.1 SECONDS (9.7-12.2) 04/01/18 09:27 INR 1.1 04/01/18 09:27 APTT 32 SECONDS (21-34) 04/01/18 09:27 - Constitutional Appears: Non-toxic, No Acute Distress, Chronically Ill - Head Exam Head Exam: NORMAL INSPECTION, NORMOCEPHALIC - Eye Exam Eye Exam: Normal appearance Pupil Exam: PERRL - ENT Exam ENT Exam: Mucous Membranes Moist, Normal Exam - Neck Exam Neck Exam: Full ROM, Normal Inspection - Respiratory Exam Respiratory Exam: Clear to Ausculation Bilateral, NORMAL BREATHING PATTERN - Cardiovascular Exam Cardiovascular Exam: REGULAR RHYTHM, RRR - GI/Abdominal Exam GI & Abdominal Exam: Distended, Soft - Extremities Exam Extremities Exam: Normal Inspection, Pedal Edema - Neurological Exam Neurological Exam: Alert, Awake, Oriented x3 - Psychiatric Exam Psychiatric exam: Normal Affect, Normal Mood - Skin Skin Exam: Dry, Intact Assessment and Plan (1) Chronic kidney disease, stage IV (severe) Status: Acute (2) ESBL (extended spectrum beta-lactamase) producing bacteria infection Status: Acute (3) UTI (urinary tract infection) Status: Acute (4) IZZY (acute kidney injury) Status: Acute - Assessment and Plan (Free Text) Assessment: renal function improving antibiotics per ID
--- NOTE | 2018-04-06 16:11 | CP.PCM.PN ---
Subjective - Date & Time of Evaluation Date of Evaluation: 04/06/18 Time of Evaluation: 14:00 - Subjective Subjective: INFECTIOUS DISEASE PROGRESS NOTES INGA HAYS MD, FACP 5T 551-A 04/06/2018 CHART REVIEWED PT EXAMINED CASE DISCUSSED CLINICALLY RESPONDING TO PSEUDOMONAS INFECTION, STENT REMOVED URINATING FREEELY BUT ANY POSSIBLE OBSTRUCTION IN THE URINARY SYSTEM WILL RE-CAUSE ANOTHER INFECTION. FOLLOW HER RENAL FUNCTION IF REPEAT URINALYSIS AND C/S ARE STERILE THEN CONSIDER PO AND HOME SOON. WILL DISCUSS ACCORDINGLY MONITOR HER RENAL FUNCTION. One episode of loose stool today ADD FLORASTOR. Objective - Vital Signs/Intake and Output Vital Signs (last 24 hours): Temp Pulse Resp BP Pulse Ox 98.4 F 87 20 152/76 H 94 L 04/06/18 07:00 04/06/18 09:15 04/06/18 07:00 04/06/18 09:15 04/06/18 07:00 Intake and Output: 04/06/18 04/06/18 06:59 18:59 Output Total 1400 Balance -1400 - Medications Medications: Current Medications Acetaminophen (Tylenol 325mg Tab) 650 mg PO Q4 PRN PRN Reason: Pain, Mild (1-3) Last Admin: 04/05/18 08:25 Dose: 650 mg Alprazolam (Xanax) 0.5 mg PO Q8H PRN PRN Reason: Anxiety Last Admin: 04/06/18 07:54 Dose: 0.5 mg Amlodipine Besylate (Norvasc) 10 mg PO DAILY [facility] Last Admin: 04/06/18 09:12 Dose: 10 mg Artificial Tears (Artificial Tears) 0 ml OU Q12 PRN PRN Reason: Dry eyes Gabapentin (Neurontin) 300 mg PO BID [facility] Last Admin: 04/06/18 09:12 Dose: 300 mg Cefepime HCl (Maxipime Iv 1 Gm Premix) 1 gm in 50 mls @ 100 mls/hr IVPB Q24H [facility]; Protocol Last Admin: 04/05/18 20:57 Dose: 100 mls/hr Insulin Glargine (Lantus) 30 unit SC HS [facility] Last Admin: 04/05/18 22:15 Dose: 30 unit Insulin Human Regular (Novolin R) 0 unit SC ACHS [facility]; Protocol Last Admin: 04/06/18 07:30 Dose: Not Given Pantoprazole Sodium (Protonix Inj) 40 mg IVP DAILY [facility] Last Admin: 04/06/18 09:12 Dose: 40 mg Rosuvastatin Calcium (Crestor) 10 mg PO HS [facility] Last Admin: 04/05/18 22:14 Dose: 10 mg - Labs Labs: 04/05/18 07:23 04/06/18 07:31 PT 12.1 SECONDS (9.7-12.2) 04/01/18 09:27 INR 1.1 04/01/18 09:27 APTT 32 SECONDS (21-34) 04/01/18 09:27 - Constitutional Appears: Non-toxic, No Acute Distress, Chronically Ill - Head Exam Head Exam: NORMAL INSPECTION, NORMOCEPHALIC - Eye Exam Eye Exam: Normal appearance Pupil Exam: PERRL - ENT Exam ENT Exam: Mucous Membranes Moist, Normal Exam - Neck Exam Neck Exam: Full ROM, Normal Inspection - Respiratory Exam Respiratory Exam: Clear to Ausculation Bilateral, NORMAL BREATHING PATTERN - Cardiovascular Exam Cardiovascular Exam: REGULAR RHYTHM, RRR - GI/Abdominal Exam GI & Abdominal Exam: Distended, Soft - Extremities Exam Extremities Exam: Normal Inspection, Pedal Edema - Neurological Exam Neurological Exam: Alert, Awake, Oriented x3 - Psychiatric Exam Psychiatric exam: Normal Affect, Normal Mood - Skin Skin Exam: Dry, Intact Assessment and Plan (1) Chronic kidney disease, stage IV (severe) Status: Acute (2) PSEUDOMONAS AEURGINOSA INFECTION producing bacteria infection Status: Acute (3) UTI (urinary tract infection) Status: Acute (4) IZZY (acute kidney injury) Status: Acute Objective - Vital Signs/Intake and Output Vital Signs (last 24 hours): Temp Pulse Resp BP Pulse Ox 98.4 F 87 20 152/76 H 94 L 04/06/18 07:00 04/06/18 09:15 04/06/18 07:00 04/06/18 09:15 04/06/18 07:00 Intake and Output: 04/06/18 04/06/18 06:59 18:59 Output Total 1400 1999 Balance -1400 -1999 - Medications Medications: Current Medications Acetaminophen (Tylenol 325mg Tab) 650 mg PO Q4 PRN PRN Reason: Pain, Mild (1-3) Last Admin: 04/05/18 08:25 Dose: 650 mg Alprazolam (Xanax) 0.5 mg PO Q8H PRN PRN Reason: Anxiety Last Admin: 04/06/18 07:54 Dose: 0.5 mg Amlodipine Besylate (Norvasc) 10 mg PO DAILY [facility] Last Admin: 04/06/18 09:12 Dose: 10 mg Artificial Tears (Artificial Tears) 0 ml OU Q12 PRN PRN Reason: Dry eyes Gabapentin (Neurontin) 300 mg PO BID [facility] Last Admin: 04/06/18 09:12 Dose: 300 mg Cefepime HCl (Maxipime Iv 1 Gm Premix) 1 gm in 50 mls @ 100 mls/hr IVPB Q24H [facility]; Protocol Last Admin: 04/05/18 20:57 Dose: 100 mls/hr Insulin Glargine (Lantus) 30 unit SC HS [facility] Last Admin: 04/05/18 22:15 Dose: 30 unit Insulin Human Regular (Novolin R) 0 unit SC ACHS [facility]; Protocol Last Admin: 04/06/18 12:28 Dose: 2 units Pantoprazole Sodium (Protonix Inj) 40 mg IVP DAILY [facility] Last Admin: 04/06/18 09:12 Dose: 40 mg Rosuvastatin Calcium (Crestor) 10 mg PO HS [facility] Last Admin: 04/05/18 22:14 Dose: 10 mg Saccharomyces Boulardii (Florastor) 500 mg PO BIDAC [facility] - Labs Labs: 04/05/18 07:23 04/06/18 07:31 PT 12.1 SECONDS (9.7-12.2) 04/01/18 09:27 INR 1.1 04/01/18 09:27 APTT 32 SECONDS (21-34) 04/01/18 09:27
[2018-04-06] MEDS: Saccharomyces Boulardi 250 mg Cap PO SCH (17:44)
[2018-04-06] MEDS: (Lantus) Insulin Glargine, Recombinant SC SCH (21:36)
[2018-04-07] MEDS: Saccharomyces Boulardi 250 mg Cap PO SCH ×2 (06:42→17:38)
[2018-04-07 08:27] LABS: SQUAMOUS EPITHIAL < 1 /hpf (0-5); URINE BACTERIA RARE (<OCC)
[2018-04-07 08:28] LABS: URINE BILIRUBIN NEGATIVE (NEGATIVE); URINE BLOOD 1+ (NEGATIVE); URINE CLARITY Clear (Clear); URINE COLOR Colorless (YELLOW); URINE GLUCOSE (UA) 1+ mg/dL (Normal); URINE LEUKOCYTE ESTERASE 3+ Leu/uL (Negative); URINE PROTEIN 1+ mg/dL (NEGATIVE); URINE UROBILINOGEN NORMAL mg/dL (0.2-1.0)
[2018-04-07] MEDS: (Novolin R) Insulin Human Regular 100 units/ml vial SC SCH ×4 (09:11→21:33)
--- NOTE | 2018-04-07 10:13 | PCM.URO ---
Urology Progress Note - General General: No Complaints, Tolerating Diet - Subjective Abdominal Pain: No Flank Pain: No Nausea: No Vomiting: No Hematuria: No Stone Passed: No Dsypnea: No Chest Pain: No Fever & Chills: No - Objective Lab Studies: Reviewed (cret = 2.3 wbc=11,900) Lab Results Last 24 Hours: Laboratory Results - last 24 hr 04/06/18 04/06/18 04/06/18 12:10 16:52 20:58 POC Glucose (mg/dL) 247 H 256 H 225 H Urine Color Urine Clarity Urine pH Ur Specific [place] Urine Protein Urine Glucose (UA) Urine Ketones Urine Blood Urine Nitrate Urine Bilirubin Urine Urobilinogen Ur Leukocyte Esterase Urine WBC (Auto) Urine RBC (Auto) Ur Squamous Epith Cells Urine Bacteria 04/07/18 04/07/18 06:16 07:54 POC Glucose (mg/dL) 208 H Urine Color Colorless Urine Clarity Clear Urine pH 7.0 Ur Specific [place] 1.006 Urine Protein 1+ H Urine Glucose (UA) 1+ Urine Ketones Negative Urine Blood 1+ H Urine Nitrate Negative Urine Bilirubin Negative Urine Urobilinogen Normal Ur Leukocyte Esterase 3+ H Urine WBC (Auto) 22 H Urine RBC (Auto) 2 Ur Squamous Epith Cells < 1 Urine Bacteria Rare Intake & Output: Intake & Output 04/06/18 04/07/18 04/07/18 18:59 06:59 18:59 Output Total 1999 2400 Balance -1999 -2399 Output: Urine 1999 2399 Urethral (Bennett) 19990 Other: # Bowel Movements 1 Vital Signs: Vital Signs - 24 hr 04/06/18 04/06/18 04/07/18 16:00 23:07 07:00 Temperature 97.9 F 98.4 F 98.5 F Pulse Rate 77 71 67 Respiratory 20 20 20 Rate Blood Pressure 146/72 145/73 152/77 H O2 Sat by Pulse 95 95 96 Oximetry - Physical Exam Abdominal Exam: Soft, Non-Tender. absent: Non-Distended Back: No CVA Tenderness Urinary Catheter Draining Well: Yes Urine Color: Clear, Yellow - Plan Additional Information: IMP: UTI. stable urologically, p stent removal. P/rec: antibiotic rx. consider trial of voiding. YS - Date & Time of Note Date: 04/07/18 Time: 10:13
[2018-04-07 11:50] LABS: BASO # 0.1 K/uL (0.0-0.2); BASO % 0.6 % (0.0-2.0); EOS # 0.6 K/uL (0.0-0.7); HEMOGLOBIN 8.9 g/dL (11.0-16.0); LYMPH # 1.2 K/uL (1.0-4.3); LYMPH % 12.9 % (20.0-40.0); MEAN CORPUSCULAR HEMOGLOBIN 29.2 pg (27.0-31.0); MEAN CORPUSCULAR HGB CONC 32.5 g/dL (33.0-37.0); MEAN PLATELET VOLUME 7.9 fL (7.2-11.7); MONO # 0.7 K/uL (0.0-0.8); MONO % 7.8 % (0.0-10.0); NEUT # 6.8 K/uL (1.8-7.0); NEUT % 72.7 % (50.0-75.0); NRBC % 0.1 % (0.0-2.0); RBC 3.03 Mil/uL (3.80-5.20); RED CELL DISTRIBUTION WIDTH 15.9 % (11.5-14.5); WHITE BLOOD COUNT 9.4 K/uL (4.8-10.8)
[2018-04-07 14:33] LABS: STONE COMPONENT 1 Mucin 100%
--- NOTE | 2018-04-07 14:56 | CP.PCM.PN ---
Subjective - Date & Time of Evaluation Date of Evaluation: 04/07/18 Time of Evaluation: 14:54 - Subjective Subjective: s/p stent removal IZZY improving- creat decreased to 2.3 excellent UO lytes acceptable on IV ABs as per ID Objective - Vital Signs/Intake and Output Vital Signs (last 24 hours): Temp Pulse Resp BP Pulse Ox 98.5 F 67 20 152/77 H 96 04/07/18 07:00 04/07/18 07:00 04/07/18 07:00 04/07/18 07:00 04/07/18 07:00 Intake and Output: 04/07/18 04/07/18 06:59 18:59 Output Total 2400 1800 Balance -2400 -1800 - Medications Medications: Current Medications Acetaminophen (Tylenol 325mg Tab) 650 mg PO Q4 PRN PRN Reason: Pain, Mild (1-3) Last Admin: 04/05/18 08:25 Dose: 650 mg Alprazolam (Xanax) 0.5 mg PO Q8H PRN PRN Reason: Anxiety Last Admin: 04/07/18 06:45 Dose: 0.5 mg Amlodipine Besylate (Norvasc) 10 mg PO DAILY [facility] Last Admin: 04/07/18 09:11 Dose: 10 mg Artificial Tears (Artificial Tears) 0 ml OU Q12 PRN PRN Reason: Dry eyes Last Admin: 04/06/18 17:44 Dose: 1 drop Gabapentin (Neurontin) 300 mg PO BID [facility] Last Admin: 04/07/18 09:11 Dose: 300 mg Cefepime HCl 0.5 gm/ Sodium (Chloride) 50 mls @ 100 mls/hr IVPB Q24H [facility] Last Admin: 04/06/18 21:36 Dose: 100 mls/hr Insulin Glargine (Lantus) 30 unit SC [facility] Last Admin: 04/06/18 21:36 Dose: 30 unit Insulin Human Regular (Novolin R) 0 unit SC [facility]; Protocol Last Admin: 04/07/18 13:20 Dose: 3 units Pantoprazole Sodium (Protonix Inj) 40 mg IVP DAILY [facility] Last Admin: 04/07/18 09:11 Dose: 40 mg Rosuvastatin Calcium (Crestor) 10 mg PO [facility] Last Admin: 04/06/18 21:34 Dose: 10 mg Saccharomyces Boulardii (Florastor) 500 mg PO BIDAC [facility] Last Admin: 04/07/18 06:42 Dose: 500 mg - Labs Labs: 04/07/18 11:35 04/06/18 07:31 PT 12.1 SECONDS (9.7-12.2) 04/01/18 09:27 INR 1.1 04/01/18 09:27 APTT 32 SECONDS (21-34) 04/01/18 09:27 - Constitutional Appears: No Acute Distress, Chronically Ill - Head Exam Head Exam: ATRAUMATIC, NORMAL INSPECTION - Eye Exam Eye Exam: EOMI, Normal appearance - Neck Exam Neck Exam: Normal Inspection. absent: Tenderness - Respiratory Exam Respiratory Exam: Clear to Ausculation Bilateral, NORMAL BREATHING PATTERN - Cardiovascular Exam Cardiovascular Exam: REGULAR RHYTHM, +S1 - GI/Abdominal Exam GI & Abdominal Exam: Soft. absent: Tenderness - Extremities Exam Extremities Exam: Normal Inspection. absent: Tenderness - Neurological Exam Neurological Exam: Awake, CN II-XII Intact - Skin Skin Exam: Dry, Warm Assessment and Plan (1) ESBL (extended spectrum beta-lactamase) producing bacteria infection Status: Acute (2) Chronic kidney disease, stage IV (severe) Status: Acute (3) IZZY (acute kidney injury) Status: Acute - Assessment and Plan (Free Text) Plan: IV ABs follow serial chemistries patel still in place
--- NOTE | 2018-04-07 20:54 | CP.PCM.PN ---
Subjective - Date & Time of Evaluation Date of Evaluation: 04/06/18 Time of Evaluation: 20:54 - Subjective Subjective: Patient is currently feeling well. No chest pain. Urinary catheter still present. The stent was removed by the urologist. Clinically stable. We will continue IV antibiotic. Patient urinalysis and culture showing evidence of Proteus. Infectious disease evaluation. Antibiotic as per ID and will follow the patient Objective - Vital Signs/Intake and Output Vital Signs (last 24 hours): Temp Pulse Resp BP Pulse Ox 98.0 F 75 20 152/82 H 96 04/07/18 15:00 04/07/18 15:00 04/07/18 15:00 04/07/18 15:00 04/07/18 15:00 Intake and Output: 04/07/18 04/08/18 18:59 06:59 Output Total 1800 Balance -1800 - Medications Medications: Current Medications Acetaminophen (Tylenol 325mg Tab) 650 mg PO Q4 PRN PRN Reason: Pain, Mild (1-3) Last Admin: 04/05/18 08:25 Dose: 650 mg Alprazolam (Xanax) 0.5 mg PO Q8H PRN PRN Reason: Anxiety Last Admin: 04/07/18 06:45 Dose: 0.5 mg Amlodipine Besylate (Norvasc) 10 mg PO DAILY [facility] Last Admin: 04/07/18 09:11 Dose: 10 mg Artificial Tears (Artificial Tears) 0 ml OU Q12 PRN PRN Reason: Dry eyes Last Admin: 04/06/18 17:44 Dose: 1 drop Gabapentin (Neurontin) 300 mg PO BID [facility] Last Admin: 04/07/18 17:38 Dose: 300 mg Cefepime HCl 0.5 gm/ Sodium (Chloride) 50 mls @ 100 mls/hr IVPB Q24H [facility] Last Admin: 04/06/18 21:36 Dose: 100 mls/hr Insulin Glargine (Lantus) 30 unit SC HS [facility] Last Admin: 04/06/18 21:36 Dose: 30 unit Insulin Human Regular (Novolin R) 0 unit SC ACHS [facility]; Protocol Last Admin: 04/07/18 17:38 Dose: 3 units Pantoprazole Sodium (Protonix Inj) 40 mg IVP DAILY [facility] Last Admin: 04/07/18 09:11 Dose: 40 mg Rosuvastatin Calcium (Crestor) 10 mg PO HS [facility] Last Admin: 04/06/18 21:34 Dose: 10 mg Saccharomyces Boulardii (Florastor) 500 mg PO BIDAC [facility] Last Admin: 04/07/18 17:38 Dose: 500 mg - Labs Labs: 04/07/18 11:35 04/06/18 07:31 PT 12.1 SECONDS (9.7-12.2) 04/01/18 09:27 INR 1.1 04/01/18 09:27 APTT 32 SECONDS (21-34) 04/01/18 09:27
--- NOTE | 2018-04-07 20:56 | CP.PCM.PN ---
Subjective - Date & Time of Evaluation Date of Evaluation: 04/07/18 Time of Evaluation: 20:55 - Subjective Subjective: Patient is now awake and responding. Comfortable. Bennett catheter present. No pain noted. Patient wanted to go home. On examination: Vital signs stable. Chest good air entry regular [place] nontender abdomen no pedal edema Assessment: 72-year-old female admitted with a left ureteral obstruction. . Stent removal. Status post the lithotripsy We will continue the current treatment. IV antibiotic as per ID. Possible discharge plan tomorrow Objective - Vital Signs/Intake and Output Vital Signs (last 24 hours): Temp Pulse Resp BP Pulse Ox 98.0 F 75 20 152/82 H 96 04/07/18 15:00 04/07/18 15:00 04/07/18 15:00 04/07/18 15:00 04/07/18 15:00 Intake and Output: 04/07/18 04/08/18 18:59 06:59 Output Total 1800 Balance -1800 - Medications Medications: Current Medications Acetaminophen (Tylenol 325mg Tab) 650 mg PO Q4 PRN PRN Reason: Pain, Mild (1-3) Last Admin: 04/05/18 08:25 Dose: 650 mg Alprazolam (Xanax) 0.5 mg PO Q8H PRN PRN Reason: Anxiety Last Admin: 04/07/18 06:45 Dose: 0.5 mg Amlodipine Besylate (Norvasc) 10 mg PO DAILY [facility] Last Admin: 04/07/18 09:11 Dose: 10 mg Artificial Tears (Artificial Tears) 0 ml OU Q12 PRN PRN Reason: Dry eyes Last Admin: 04/06/18 17:44 Dose: 1 drop Gabapentin (Neurontin) 300 mg PO BID [facility] Last Admin: 04/07/18 17:38 Dose: 300 mg Cefepime HCl 0.5 gm/ Sodium (Chloride) 50 mls @ 100 mls/hr IVPB Q24H [facility] Last Admin: 04/06/18 21:36 Dose: 100 mls/hr Insulin Glargine (Lantus) 30 unit SC HS [facility] Last Admin: 04/06/18 21:36 Dose: 30 unit Insulin Human Regular (Novolin R) 0 unit SC ACHS [facility]; Protocol Last Admin: 04/07/18 17:38 Dose: 3 units Pantoprazole Sodium (Protonix Inj) 40 mg IVP DAILY [facility] Last Admin: 04/07/18 09:11 Dose: 40 mg Rosuvastatin Calcium (Crestor) 10 mg PO HS [facility] Last Admin: 04/06/18 21:34 Dose: 10 mg Saccharomyces Boulardii (Florastor) 500 mg PO BIDAC [facility] Last Admin: 04/07/18 17:38 Dose: 500 mg - Labs Labs: 04/07/18 11:35 04/06/18 07:31 PT 12.1 SECONDS (9.7-12.2) 04/01/18 09:27 INR 1.1 04/01/18 09:27 APTT 32 SECONDS (21-34) 04/01/18 09:27
[2018-04-07] MEDS: (Lantus) Insulin Glargine, Recombinant SC SCH (21:29)
--- NOTE | 2018-04-08 00:22 | CP.PCM.PN ---
Subjective - Date & Time of Evaluation Date of Evaluation: 04/07/18 Time of Evaluation: 15:00 - Subjective Subjective: INFECTIOUS DISEASE PROGRESS NOTES INGA MENG MD, FACP 04/07/2018 CHART REVIEWED PT EXAMINED CASE DISCUSSED CLINICALLY RESPONDING BUT RE-OCCURANCES ARE A PROBLEM WATCH, MAY CONSIDER 3-5 DAYS OF PO CIPRO AN OUT PT TO DISCUSS WITH DR POWERS [facility] ON CEFEPIME 500MG IV OD FOR NOW Objective - Vital Signs/Intake and Output Vital Signs (last 24 hours): Temp Pulse Resp BP Pulse Ox 98.0 F 75 20 152/82 H 96 04/07/18 15:00 04/07/18 15:00 04/07/18 15:00 04/07/18 15:00 04/07/18 15:00 Intake and Output: 04/07/18 04/08/18 18:59 06:59 Output Total 1800 1400 Balance -1800 -1400 - Medications Medications: Current Medications Acetaminophen (Tylenol 325mg Tab) 650 mg PO Q4 PRN PRN Reason: Pain, Mild (1-3) Last Admin: 04/05/18 08:25 Dose: 650 mg Alprazolam (Xanax) 0.5 mg PO Q8H PRN PRN Reason: Anxiety Last Admin: 04/07/18 21:32 Dose: 0.5 mg Amlodipine Besylate (Norvasc) 10 mg PO DAILY [facility] Last Admin: 04/07/18 09:11 Dose: 10 mg Artificial Tears (Artificial Tears) 0 ml OU Q12 PRN PRN Reason: Dry eyes Last Admin: 04/06/18 17:44 Dose: 1 drop Gabapentin (Neurontin) 300 mg PO BID [facility] Last Admin: 04/07/18 17:38 Dose: 300 mg Cefepime HCl 0.5 gm/ Sodium (Chloride) 50 mls @ 100 mls/hr IVPB Q24H [facility] Last Admin: 04/07/18 21:29 Dose: 100 mls/hr Insulin Glargine (Lantus) 30 unit SC HS [facility] Last Admin: 04/07/18 21:29 Dose: 30 unit Insulin Human Regular (Novolin R) 0 unit SC ACHS [facility]; Protocol Last Admin: 04/07/18 21:33 Dose: Not Given Pantoprazole Sodium (Protonix Inj) 40 mg IVP DAILY [facility] Last Admin: 04/07/18 09:11 Dose: 40 mg Rosuvastatin Calcium (Crestor) 10 mg PO HS [facility] Last Admin: 04/07/18 21:29 Dose: 10 mg Saccharomyces Boulardii (Florastor) 500 mg PO BIDAC [facility] Last Admin: 04/07/18 17:38 Dose: 500 mg - Labs Labs: 04/07/18 11:35 04/06/18 07:31 PT 12.1 SECONDS (9.7-12.2) 04/01/18 09:27 INR 1.1 04/01/18 09:27 APTT 32 SECONDS (21-34) 04/01/18 09:27
[2018-04-08] MEDS: Saccharomyces Boulardi 250 mg Cap PO SCH ×2 (06:50→17:41)
[2018-04-08] MEDS: (Novolin R) Insulin Human Regular 100 units/ml vial SC SCH ×4 (08:30→21:35)
[2018-04-08 09:13] LABS: BASO # 0.1 K/uL (0.0-0.2); BASO % 0.6 % (0.0-2.0); EOS # 0.7 K/uL (0.0-0.7); EOS % 6.6 % (0.0-4.0); HEMOGLOBIN 8.6 g/dL (11.0-16.0); LYMPH # 1.6 K/uL (1.0-4.3); LYMPH % 15.7 % (20.0-40.0); MEAN CELL VOLUME 89.2 fL (81.0-99.0); MEAN CORPUSCULAR HEMOGLOBIN 29.2 pg (27.0-31.0); MEAN CORPUSCULAR HGB CONC 32.7 g/dL (33.0-37.0); MEAN PLATELET VOLUME 7.8 fL (7.2-11.7); MONO # 0.8 K/uL (0.0-0.8); MONO % 7.9 % (0.0-10.0); NEUT % 69.2 % (50.0-75.0); RBC 2.95 Mil/uL (3.80-5.20); RED CELL DISTRIBUTION WIDTH 15.5 % (11.5-14.5); WHITE BLOOD COUNT 10.1 K/uL (4.8-10.8)
[2018-04-08 09:38] LABS: ALB/GLOB RATIO 0.9 (1.0-2.1); ALBUMIN 3.1 g/dL (3.5-5.0); ALT/SGPT < 6 U/L (9-52); AST/SGOT 10 U/L (14-36); BLOOD UREA NITROGEN 23 mg/dL (7-17); CALCIUM 8.3 mg/dl (8.6-10.4); GFR NON-AFRICAN AMERICAN 25
--- NOTE | 2018-04-08 11:17 | CP.PCM.PN ---
Subjective - Date & Time of Evaluation Date of Evaluation: 04/08/18 Time of Evaluation: 11:14 - Subjective Subjective: alert creat decreasing- 2.0; lytes acceptable [id number] remains on IV ABs for UTI patel remains in place Objective - Vital Signs/Intake and Output Vital Signs (last 24 hours): Temp Pulse Resp BP Pulse Ox 97.9 F 83 20 157/66 H 98 04/08/18 08:12 04/08/18 11:00 04/08/18 08:12 04/08/18 11:00 04/08/18 08:12 Intake and Output: 04/08/18 04/08/18 06:59 18:59 Output Total 3000 Balance -3000 - Medications Medications: Current Medications Acetaminophen (Tylenol 325mg Tab) 650 mg PO Q4 PRN PRN Reason: Pain, Mild (1-3) Last Admin: 04/05/18 08:25 Dose: 650 mg Alprazolam (Xanax) 0.5 mg PO Q8H PRN PRN Reason: Anxiety Last Admin: 04/08/18 06:50 Dose: 0.5 mg Amlodipine Besylate (Norvasc) 10 mg PO DAILY [facility] Last Admin: 04/08/18 11:00 Dose: 10 mg Artificial Tears (Artificial Tears) 0 ml OU Q12 PRN PRN Reason: Dry eyes Last Admin: 04/06/18 17:44 Dose: 1 drop Gabapentin (Neurontin) 300 mg PO BID [facility] Last Admin: 04/08/18 11:00 Dose: 300 mg Cefepime HCl 0.5 gm/ Sodium (Chloride) 50 mls @ 100 mls/hr IVPB Q24H [facility] Last Admin: 04/07/18 21:29 Dose: 100 mls/hr Insulin Glargine (Lantus) 30 unit SC [facility] Last Admin: 04/07/18 21:29 Dose: 30 unit Insulin Human Regular (Novolin R) 0 unit SC [facility]; Protocol Last Admin: 04/08/18 08:30 Dose: 3 units Pantoprazole Sodium (Protonix Inj) 40 mg IVP DAILY [facility] Last Admin: 04/08/18 11:00 Dose: 40 mg Rosuvastatin Calcium (Crestor) 10 mg PO [facility] Last Admin: 04/07/18 21:29 Dose: 10 mg Saccharomyces Boulardii (Florastor) 500 mg PO BIDAC [facility] Last Admin: 04/08/18 06:50 Dose: 500 mg - Labs Labs: 04/08/18 09:00 04/08/18 09:00 PT 12.1 SECONDS (9.7-12.2) 04/01/18 09:27 INR 1.1 04/01/18 09:27 APTT 32 SECONDS (21-34) 04/01/18 09:27 - Constitutional Appears: No Acute Distress, Confused, Chronically Ill - Head Exam Head Exam: ATRAUMATIC, NORMAL INSPECTION - Eye Exam Eye Exam: EOMI, Normal appearance - Neck Exam Neck Exam: Normal Inspection. absent: Tenderness - Respiratory Exam Respiratory Exam: Clear to Ausculation Bilateral, NORMAL BREATHING PATTERN - Cardiovascular Exam Cardiovascular Exam: REGULAR RHYTHM, +S1 - GI/Abdominal Exam GI & Abdominal Exam: Soft. absent: Tenderness - Extremities Exam Extremities Exam: Normal Inspection. absent: Tenderness - Neurological Exam Neurological Exam: Awake, CN II-XII Intact - Skin Skin Exam: Dry, Warm Assessment and Plan (1) ESBL (extended spectrum beta-lactamase) producing bacteria infection Status: Acute (2) Chronic kidney disease, stage IV (severe) Status: Acute (3) IZZY (acute kidney injury) Status: Acute - Assessment and Plan (Free Text) Plan: IV ABs as per ID IZZY resolving- approaching baseline CKD levels possible discharge soon
[2018-04-08 12:15] LABS: SQUAMOUS EPITHIAL 1 /hpf (0-5); URINE BACTERIA OCC (<OCC); URINE BILIRUBIN NEGATIVE (NEGATIVE); URINE BLOOD 1+ (NEGATIVE); URINE CLARITY Clear (Clear); URINE COLOR Straw (YELLOW); URINE GLUCOSE (UA) 3+ mg/dL (Normal); URINE LEUKOCYTE ESTERASE 3+ Leu/uL (Negative); URINE PROTEIN 2+ mg/dL (NEGATIVE); URINE UROBILINOGEN NORMAL mg/dL (0.2-1.0)
--- NOTE | 2018-04-08 19:47 | CP.PCM.PN ---
Subjective - Date & Time of Evaluation Date of Evaluation: 04/08/18 Time of Evaluation: 16:00 - Subjective Subjective: INFECTIOUS DISEASE PROGRESS NOTES INGA MENG MD, FACP 5T 551-A 04/08/2018 CHART REVIEWED PT EXAMINED CASE DISCUSSED alert creat decreasing- 2.0; lytes acceptable [id number] remains on IV ABs for UTI-TO SWITCH TO PO CIPRO 250MG DAILY FOR 5 DAYS MAX, PT UNDERSTANDS THE POSSIBILITY OF REOCCURANCES. patel remains in place, ESPECIALLY WITH PATEL. Objective - Vital Signs/Intake and Output Vital Signs (last 24 hours): Temp Pulse Resp BP Pulse Ox 97.9 F 83 20 157/66 H 98 04/08/18 08:12 04/08/18 11:00 04/08/18 08:12 04/08/18 11:00 04/08/18 08:12 Intake and Output: 04/08/18 04/08/18 06:59 18:59 Output Total 3000 Balance -3000 - Medications Medications: Current Medications Acetaminophen (Tylenol 325mg Tab) 650 mg PO Q4 PRN PRN Reason: Pain, Mild (1-3) Last Admin: 04/05/18 08:25 Dose: 650 mg Alprazolam (Xanax) 0.5 mg PO Q8H PRN PRN Reason: Anxiety Last Admin: 04/08/18 06:50 Dose: 0.5 mg Amlodipine Besylate (Norvasc) 10 mg PO DAILY [facility] Last Admin: 04/08/18 11:00 Dose: 10 mg Artificial Tears (Artificial Tears) 0 ml OU Q12 PRN PRN Reason: Dry eyes Last Admin: 04/06/18 17:44 Dose: 1 drop Gabapentin (Neurontin) 300 mg PO BID [facility] Last Admin: 04/08/18 11:00 Dose: 300 mg Cefepime HCl 0.5 gm/ Sodium (Chloride) 50 mls @ 100 mls/hr IVPB Q24H [facility] Last Admin: 04/07/18 21:29 Dose: 100 mls/hr Insulin Glargine (Lantus) 30 unit SC HS [facility] Last Admin: 04/07/18 21:29 Dose: 30 unit Insulin Human Regular (Novolin R) 0 unit SC ACHS [facility]; Protocol Last Admin: 04/08/18 08:30 Dose: 3 units Pantoprazole Sodium (Protonix Inj) 40 mg IVP DAILY [facility] Last Admin: 04/08/18 11:00 Dose: 40 mg Rosuvastatin Calcium (Crestor) 10 mg PO HS [facility] Last Admin: 04/07/18 21:29 Dose: 10 mg Saccharomyces Boulardii (Florastor) 500 mg PO BIDAC [facility] Last Admin: 04/08/18 06:50 Dose: 500 mg - Labs Labs: 04/08/18 09:00 04/08/18 09:00 PT 12.1 SECONDS (9.7-12.2) 04/01/18 09:27 INR 1.1 04/01/18 09:27 APTT 32 SECONDS (21-34) 04/01/18 09:27 - Constitutional Appears: No Acute Distress, Confused, Chronically Ill - Head Exam Head Exam: ATRAUMATIC, NORMAL INSPECTION - Eye Exam Eye Exam: EOMI, Normal appearance - Neck Exam Neck Exam: Normal Inspection. absent: Tenderness - Respiratory Exam Respiratory Exam: Clear to Ausculation Bilateral, NORMAL BREATHING PATTERN - Cardiovascular Exam Cardiovascular Exam: REGULAR RHYTHM, +S1 - GI/Abdominal Exam GI & Abdominal Exam: Soft. absent: Tenderness - Extremities Exam Extremities Exam: Normal Inspection. absent: Tenderness - Neurological Exam Neurological Exam: Awake, CN II-XII Intact - Skin Skin Exam: Dry, Warm Assessment and Plan (1) PSEUDOMONAS UTI bacteria infection Status: Acute (2) Chronic kidney disease, stage IV (severe) Status: Acute (3) IZZY (acute kidney injury) Status: Acute - Assessment and Plan (Free Text) Plan: SWITCH TO PO ANTIBIOTICS. IZZY resolving- approaching baseline CKD levels possible discharge soon Objective - Vital Signs/Intake and Output Vital Signs (last 24 hours): Temp Pulse Resp BP Pulse Ox 98 F 85 20 154/80 H 95 04/08/18 16:20 04/08/18 16:20 04/08/18 16:20 04/08/18 16:20 04/08/18 16:20 Intake and Output: 04/08/18 04/09/18 18:59 06:59 Output Total 1800 Balance -1800 - Medications Medications: Current Medications Acetaminophen (Tylenol 325mg Tab) 650 mg PO Q4 PRN PRN Reason: Pain, Mild (1-3) Last Admin: 04/05/18 08:25 Dose: 650 mg Alprazolam (Xanax) 0.5 mg PO Q8H PRN PRN Reason: Anxiety Last Admin: 04/08/18 06:50 Dose: 0.5 mg Amlodipine Besylate (Norvasc) 10 mg PO DAILY [facility] Last Admin: 04/08/18 11:00 Dose: 10 mg Artificial Tears (Artificial Tears) 0 ml OU Q12 PRN PRN Reason: Dry eyes Last Admin: 04/06/18 17:44 Dose: 1 drop Gabapentin (Neurontin) 300 mg PO BID [facility] Last Admin: 04/08/18 17:41 Dose: 300 mg Cefepime HCl 0.5 gm/ Sodium (Chloride) 50 mls @ 100 mls/hr IVPB Q24H [facility] Last Admin: 04/07/18 21:29 Dose: 100 mls/hr Insulin Glargine (Lantus) 30 unit SC HS [facility] Last Admin: 04/07/18 21:29 Dose: 30 unit Insulin Human Regular (Novolin R) 0 unit SC [facility]; Protocol Last Admin: 04/08/18 17:41 Dose: 3 units Pantoprazole Sodium (Protonix Inj) 40 mg IVP DAILY [facility] Last Admin: 04/08/18 11:00 Dose: 40 mg Rosuvastatin Calcium (Crestor) 10 mg PO HS [facility] Last Admin: 04/07/18 21:29 Dose: 10 mg Saccharomyces Boulardii (Florastor) 500 mg PO BIDAC [facility] Last Admin: 04/08/18 17:41 Dose: 500 mg - Labs Labs: 04/08/18 09:00 04/08/18 09:00 PT 12.1 SECONDS (9.7-12.2) 04/01/18 09:27 INR 1.1 04/01/18 09:27 APTT 32 SECONDS (21-34) 04/01/18 09:27
[2018-04-08] MEDS: (Lantus) Insulin Glargine, Recombinant SC SCH (21:32)
[2018-04-08 22:38] VITALS: BP 149/74; PULSE 80; RESP 22; TEMP 97.9; O2SAT 97
--- NOTE | 2018-05-10 03:36 | DS ---
HISTORY OF PRESENT ILLNESS: 72-year-old female with history of diabetes, hypertension, hypercholesterolemia, history of CAD status post stent and also history of osteoarthritis. Recently, she was hospitalized with acute urinary tract infection secondary to nearly obstructing kidney stones as well as left-sided hydronephrosis and severe sepsis. The patient was placed on a stent placement. She improved with antibiotics, was sent to the rehab, but again she was having increasing abdominal pain, seen by urologist. Because of the worsening of the abdominal pain, she needed hospitalization. During the stay in the hospital in the emergency room, the patient was also having abdominal pain, nausea, and vomiting, and increasing burning urination noted. Clinical examination unremarkable except lower abdominal pain and the left renal angle tenderness. Urinalysis showing evidence for hematuria. The patient was admitted to the hospital. Intravenous antibiotics started. Urological opinion as well as infectious disease consultation was called in. On day 2, the patient underwent cystoscopy, left ureterorenoscopy, stone and debris basketing, pyelogram and stent insertion was done. Significant cystitis was noted. The patient continued to receive antibiotics. She was slowly improving. The patient was also seen by crushed stone grader because of the worsening renal failure. Clinically, the patient is stable. The stent was removed. The patient continued to receive antibiotics, She was also feeling well. She was eating very good. No nausea, no vomiting noted. After discussing with ID, the patient will continue to receive ciprofloxacin 250 mg twice a day for 5 more days and she will follow as an outpatient. FINAL DIAGNOSES: Acute urinary obstruction, status post stent removal; urinary tract infection; acute renal insufficiency with chronic renal failure, improving. She will follow up with primary doctor in the long-term. Will follow up as needed. Melvin Wayne MD
== END 2018-04-08 22:52 | DRG 660 ==
LOC: C.ER 07:56 → C.9E 10:11 → C.5S 21:55
PROVIDERS: ADMIT Internal Medicine; ATTEND Internal Medicine
PROC: 0TP98DZ Removal of Intraluminal Device from Ureter, Via Natural or Artificial Opening Endoscopic (ICD-10-PCS; 2018-04-02)
PROC: 0TC48ZZ Extirpation of Matter from Left Kidney Pelvis, Via Natural or Artificial Opening Endoscopic (ICD-10-PCS; 2018-04-02)
PROC: 0TC18ZZ Extirpation of Matter from Left Kidney, Via Natural or Artificial Opening Endoscopic (ICD-10-PCS; 2018-04-02)
PROC: BT1F1ZZ Fluoroscopy of Left Kidney, Ureter and Bladder using Low Osmolar Contrast (ICD-10-PCS; 2018-04-02)
PROC: 0T778DZ Dilation of Left Ureter with Intraluminal Device, Via Natural or Artificial Opening Endoscopic (ICD-10-PCS; principal; 2018-04-02 11:30)
DX: N13.6 Pyonephrosis (principal); Z68.41 Body mass index [BMI] 40.0-44.9, adult; N30.91 Cystitis, unspecified with hematuria; N17.9 Acute kidney failure, unspecified; N18.4 Chronic kidney disease, stage 4 (severe); I25.10 Atherosclerotic heart disease of native coronary artery without angina pectoris; E78.00 Pure hypercholesterolemia, unspecified; E66.9 Obesity, unspecified; E11.22 Type 2 diabetes mellitus with diabetic chronic kidney disease; I12.9 Hypertensive chronic kidney disease with stage 1 through stage 4 chronic kidney disease, or unspecified chronic kidney disease; R33.8 Other retention of urine; D63.1 Anemia in chronic kidney disease; B96.5 Pseudomonas (aeruginosa) (mallei) (pseudomallei) as the cause of diseases classified elsewhere; N39.498 Other specified urinary incontinence; Z74.01 Bed confinement status; Z87.891 Personal history of nicotine dependence; Z95.5 Presence of coronary angioplasty implant and graft